=== PATIENT | female | born 1940 | race Caucasian/White ===

== ENCOUNTER 2019-09-25 10:57 | Observation (INO) | payer MEDICARE, SELFPAY ==
[2019-09-25] VITALS (15 sets, daily range): BP systolic 115–183; BP diastolic 54–80; PULSE 52–92; RESP 16–20; TEMP 36.4–36.7; O2SAT 96–100; BMI 29.3
--- NOTE | ~2019-09-25 | XR_ITS ---
EXAMINATION: XR chest 2V DATE: 09/25/2019 11:49 INDICATION: Midsternal chest pain TECHNIQUE: PA and lateral views of the chest are obtained. COMPARISON: 04/22/2019 FINDINGS: The lungs are free of acute opacities. There is no pleural effusion or pneumothorax. The ca rdiomediastinal silhouette is normal. There is exaggerated kyphosis of the thoracic spine. Mild thora cic spondylosis is noted. Cholecystectomy clips are noted in the right upper quadrant. IMPRESSION: 1. No acute cardiopulmonary abnormality. Reviewed, dictated and finalized at location A. ENT SERVICES MANAGER
--- NOTE | 2019-09-25 11:07 | ECG_ITS ---
Measurements Intervals [place] Rate: 58 P: -5 [place]: 210 QRS: -27 QRSD: 97 T: 18 QT: 419 QTc: 412 Interpretive Statements SINUS BRADYCARDIA WITH FIRST DEGREE AV BLOCK LOW QRS VOLTAGE IN PRECORDIAL LEADS ABNORMAL ECG Electronically Signed On 09-25-2019 15:59:19 DELIVERY MERCHANDISER by Seamus Cowan D.O.
[2019-09-25 11:16] LABS: Basophils Absolute Auto 0.1 K/mm3 (0.0-0.1); Basophils Percent Auto 0.8 % (0.2-1.2); Eosinophils Absolute Auto 0.1 K/mm3 (0-0.3); Hematocrit 40.1 % (37.0-47.0); Hemoglobin 12.8 g/dL (12.0-15.0); Immature Granulocyte Absolute 0.01 K/mm3 (0.00-0.031); Immature Granulocyte Percent A 0.1 % (0-0.5); Lymphocytes Percent Auto 24.1 % (18.3-44.2); Mean Corpuscular HGB Conc 31.9 g/dl (32-36); Mean Corpuscular Hemoglobin 29.5 pg (26-34); Mean Corpuscular Volume 92.4 fl (80-100); Mean Platelet Volume 10.4 fl (7.4-10.4); Monocytes Absolute Auto 0.4 K/mm3 (0.1-0.6); Monocytes Percent Auto 6.1 % (2.6-8.5); Neutrophils Absolute Auto 4.7 K/mm3 (1.3-6.7); Neutrophils Percent Auto 66.9 % (45.5-73.1); Platelet Count Result 194 k/mm3 (150-375); Red Blood Count 4.34 M/mm3 (4.2-5.4); Red Cell Distribution Width 13.8 % (11.5-14.5); White Blood Count 7.1 K/mm3 (4.5-10.0)
[2019-09-25 11:26] LABS: Partial Thromboplastin Time 27.1 SECONDS (22.3-36.8); Prothrombin Time 13.2 Seconds (11.1-14.7)
[2019-09-25 11:30] LABS: Blood Urea Nitrogen 9 mg/dL (7-17); Calcium 9.5 mg/dL (8.4-10.2); Carbon Dioxide 27 mmol/L (22-30); Chloride 100 mmol/L (98-107); Estimated Glomerular Filt Rate 43; Glucose 116 mg/dL (65-105); Sodium 137 mmol/L (137-145)
[2019-09-25 11:42] LABS: Troponin I < 0.012 ng/mL (0.000-0.034)
[2019-09-25] MEDS: ASPIRIN 81 MG CHEWABLE TABLET 324 MG PO (12:26)
--- NOTE | 2019-09-25 12:29 | ED.CHESTPAIN ---
HPI - Chest Pain General Chief Complaint: Chest Pain Stated Complaint: cp Time Seen by Provider: 09/25/19 12:13 Source: patient Mode of arrival: ambulatory Limitations: no limitations History of Present Illness HPI narrative: The pt is an 79 y/o female who presents to the ED with c/o CP that began this morning. The pt states that the CP began upon waking up. The pain started in her rt arm and chest and lasted for about 15 minutes. She notes that she did not get up from bed until the pain resided because she was afraid that it would make her pain worse. She has never had this pain before. In the ED bed, her sx is now resolved and the pt denies CP, fever, chills, cough, or N/V/D. She has a PMHx of GERD and HLD, but denies a history of OK, TIA, or CVA. The pt does not smoke or drink and lives with her daughter and her . The pt's spouse 2 years ago. Her PCP is Dr. Liliana Lou who she last saw 1 month ago for a regular check-up. MD complaint: chest pain Onset (ago): hour(s) (this morning) Timing of current episode: now resolved Onset: awoke with symptoms Associated symptoms: other (none) Related Data Home Medications Medication Instructions Recorded Confirmed alprazolam 1 mg tablet 1 mg PO TID PRN 07/03/19 aspirin 81 mg tablet,delayed 81 mg PO DAILY 07/03/19 release lovastatin 40 mg tablet 40 mg PO QPM 07/03/19 omeprazole 20 mg capsule,delayed 20 mg PO DAILY 07/03/19 release Allergies Allergy/AdvReac Type Severity Reaction Status Date / Time Quinolones Allergy Mild Unknown Verified 08/27/19 10:35 cefprozil Allergy Unknown Unknown Verified 08/27/19 10:35 cefuroxime Allergy Unknown Unknown Verified 08/27/19 10:35 Cephalosporins Allergy Unknown Unknown Verified 08/27/19 10:35 erythromycin base Allergy Unknown Stomach Verified 08/27/19 10:35 cramps gatifloxacin Allergy Unknown Unknown Verified 08/27/19 10:35 metronidazole Allergy Unknown Unknown Verified 08/27/19 10:35 Penicillins Allergy Unknown Unknown Verified 08/27/19 10:35 Review of Systems Review of Systems: All systems reviewed & are unremarkable except as noted in HPI and below Constitutional: Constitutional: Denies chills and Denies fever(s) Cardiovascular: Cardiovascular: Denies chest pain Respiratory: Respiratory: Denies cough Gastrointestinal: Gastrointestinal: Denies diarrhea, Denies nausea and Denies vomiting PMFSH Past Medical History Medical History A-fib Angina at rest Anxiety Arthritis CAD (coronary artery disease) Cataracts, bilateral Chronic midline low back pain with sciatica Depression Diverticulitis Fall GERD (gastroesophageal reflux disease) History of angina HLD (hyperlipidemia) HTN (hypertension) Nausea Sleep apnea UTI (urinary tract infection) Surgical History Surgical History H/O tubal ligation H/O: hysterectomy History of appendectomy History of cataract surgery History of cholecystectomy Family History Family History Father Family history of alcoholism Acute myocardial infarction Mother Family history of alcoholism Social History Social History Smoking status: Never smoker Second hand tobacco smoke exposure: No Alcohol intake: never Substance use: never Substance use type: does not use Gender identity (if verbalized by the patient): Female Exam Narrative: Exam Narrative: General appearance: Well-developed, well-nourished Skin: Normal color Head: Normocephalic, nontraumatic Eyes: Clear conjunctiva ENT: Oropharynx normal, ears normal, nose normal Neck: Supple, nontender Chest and respiratory: Airway patent, no respiratory distress, no accessory muscle use Heart: Regular rate/rhythm Abdomen: Soft, nontender, no organomegaly, quiet bowel sounds Vascular: Normal pe
[2019-09-25] MEDS: ENOXAPARIN 80 MG/0.8 ML SYRINGE 70 MG SUB-Q (14:03)
[2019-09-25] MEDS: NITROGLYCERIN OINTMENT 1 INCH DOSE TRANSDERM (14:05)
[2019-09-25 14:33] LABS: Troponin I < 0.012 ng/mL (0.000-0.034)
[2019-09-25] MEDS: ALPRAZOLAM 0.25 MG TABLET 0.5 MG PO (14:53)
--- NOTE | 2019-09-25 16:22 | ADMGEN ---
This patient, Chiara Faith, was admitted to IMU Room 214-01. Patient/family oriented to hospital policies and general routines including ID bracelet, bed and alarms, visiting hours, pain management, procedures, bathroom and other care routines, personal items, smoking policy, room service/diet, and visiting hours. Valuables list has been completed. Information on how to activate the Rapid Response Team has been discussed. Patient/Family are encouraged to report perceived risks to care and to ask questions if they do not understand what they are told or what they should do.
[2019-09-25 17:37] LABS: Troponin I < 0.012 ng/mL (0.000-0.034)
--- NOTE | 2019-09-25 18:00 | PM.IMHP ---
H&P: HPI History of Present Illness Chief complaint: Chest pain Narrative: Chiara Faith is a 79 year old female with paroxysmal atrial fibrillation, hypertension, hyperlipidemia, GERD, and anxiety who presented to the emergency department earlier this afternoon for evaluation of chest pain. Not long after waking up this morning, but still while lying in bed, she developed midsternal chest pain that she describes as an ache. At that time, she was laying on her right side, and also notes that her right arm seemed to have been asleep as well. She rolled onto her back, thinking that maybe would help, however the midsternal aching persisted for upwards of 15 minutes. She had no associated symptoms with the aching and specifically denies sweats, nausea, and vomiting. She was not experiencing indigestion or heartburn. She then told her daughter, who insisted that she come to the emergency department. She has not had a recurrence and feels just fine at this time. She is a patient of Dr. Freddie Velasco, and follows with him for her atrial fibrillation. She has an upcoming appointment with him in October 2019. Review of Systems Review of Systems: Narrative: Twelve systems were reviewed with pertinent positives and negatives as per HPI. No fever, chills, or sweats. No recent cold or flu symptoms. No history of coronary artery disease. No GERD or acid reflux pain. She does admit to having stress at home, with some discord with her son-in-law. She admits to being a very anxious person, and is dependent on benzodiazepines. She frequently suffers from nausea, which has been attributed to her anxiety. She was seen by Dr. Sosa, prescribe Zofran as needed. No endoscopy performed, trying to limit invasive procedures due to her age. She does not believe that her discomfort today is related to anxiety in any way. Except as documented, all other systems were reviewed and are negative. [facility] Past Medical History Medical History (Updated 09/25/19 @ 20:59 by Alba Jamil PA-C) Anxiety Aortic valve regurgitation Moderate by echocardiogram in October 2018. Followed by Dr. Velasco. Arthritis Benzodiazepine dependence Bronchiectasis Prior imaging demonstrated bronchiectasis in bilateral lower lobes with chronic scarring. Chronic kidney disease, stage 3 Baseline creatinine between 1.20 and 1.40. Chronic midline low back pain with sciatica Dementia Reported by daughter, however the patient disputes this. Depression Diverticulitis GERD (gastroesophageal reflux disease) Hyperlipidemia Hypertension Obstructive sleep apnea Paroxysmal atrial fibrillation She has declined anticoagulation and antiarrhythmics previously, and is on pantoprazole daily. She is followed by Dr. Velasco. Surgical History Surgical History (Updated 09/25/19 @ 15:18 by Alba Jamil PA-C) History of appendectomy History of cardiac catheterization No known intervention. History of cataract surgery History of cholecystectomy Status post appendectomy Status post cataract extraction Status post hysterectomy Status post tubal ligation Family History Family History (Updated 09/25/19 @ 16:38 by Marilee Hester RN) Father Acute myocardial infarction Family history of alcoholism Mother Family history of alcoholism Sibling Acute myocardial infarction Sibling Brain aneurysm Social History Social History (Updated 09/25/19 @ 15:19 by Alba Jamil PA-C) Social History: The patient has been for 2+ years. She lives in [place] with her daughter, son-in-law, and grandchildren. She has 3 daughters, 1 from an ID at age 30. She is a lifelong nonsmoker and denies alcohol and drug use. Smoking status: Never smoker Second hand tobacco smoke exposure: Yes Alcohol intake: never Substance use: never Substance use type: does not use Spiritual care concerns: No Agree to blood products: Yes Meds
[2019-09-25] MEDS: ALPRAZOLAM 0.5 MG TABLET 1 MG PO (21:09)
[2019-09-26] VITALS: PULSE 64; RESP 20; O2SAT 96
[2019-09-26 01:54] VITALS: PULSE 58
[2019-09-26 04:00] VITALS: BP 146/72; PULSE 56; PULSE 58; RESP 18; RESP 20; TEMP 36.8; O2SAT 96; O2SAT 97
[2019-09-26 06:00] VITALS: PULSE 56
[2019-09-26 08:00] VITALS: BP 150/68; PULSE 73; PULSE 78; RESP 18; TEMP 36.8; O2SAT 98
[2019-09-26] MEDS: ALPRAZOLAM 0.5 MG TABLET 1 MG PO (08:12)
[2019-09-26 08:13] VITALS: PULSE 67
[2019-09-26] MEDS: ASPIRIN 81 MG ENTERIC TABLET PO (08:13)
[2019-09-26] MEDS: PANTOPRAZOLE 40 MG TABLET PO (08:13)
[2019-09-26] MEDS: CITALOPRAM HYDROBROMIDE 20 MG TABLET 10 MG PO (08:13)
[2019-09-26] MEDS: LOSARTAN POTASSIUM 100 MG TABLET PO (08:13)
[2019-09-26] MEDS: METOPROLOL SUCCINATE EXT REL 25 MG TABCR PO (08:13)
[2019-09-26] MEDS: FUROSEMIDE 20 MG TABLET PO (08:13)
[2019-09-26] MEDS: SERTRALINE HCL 25 MG TABLET PO (08:14)
--- NOTE | 2019-09-26 18:36 | PM.DS ---
DS: Diagnosis Admitting Diagnosis Admitting Diagnosis: Chest pain, unspecified Discharge Diagnosis (1) Chest pain: Qualifiers: Chest pain type: unspecified Qualified Code(s): R07.9 - Chest pain, unspecified Code(s): R07.9 - Chest pain, unspecified Status: Acute Assessment and Plan: Atypical presentation for cardiac pain. She does have risk factors for such, however and was admitted for rule out.. troponins were negative to rule out acute coronary syndrome. And EKG sinus rhythm with no ischemic changes. Will follow-up with Dr. Velasco. 11/12/19 (2) Anxiety: Code(s): F41.9 - Anxiety disorder, unspecified Status: Acute Assessment and Plan: Long history of anxiety, dependent on benzodiazepines. Could be playing a role in her chest pain. She frequently has nausea due to anxiety, and was followed by Dr. Sosa. No endoscopy done at that time, as the patient wished to limit invasive procedures. (3) Hypertension: Code(s): I10 - Essential (primary) hypertension Status: Acute Assessment and Plan: Blood pressures were reviewed and were as high as 183/73 in the emergency department. Since that time, they were well controlled in the 120s to 150 systolic. Likely elevated due to anxiety. Continue antihypertensives and monitor. (4) Paroxysmal atrial fibrillation: Code(s): I48.0 - Paroxysmal atrial fibrillation Status: Acute Assessment and Plan: Currently in a normal sinus rhythm. She has previously refused anticoagulation. Continue metoprolol. (5) Chronic kidney disease, stage 3: Code(s): N18.3 - Chronic kidney disease, stage 3 (moderate) Status: Acute Assessment and Plan: Creatinine is stable on review of previous labs. At 1.2 with estimated GFR of 43 DS: Summary Hospital Course Hospital Course: 79-year-old hypertensive white female with history of paroxysmal AFib and hyperlipidemia admitted with atypical chest pain. She had no further discomfort after admission. Serial troponins were negative and EKG no ischemic change. She has scheduled appointment with Dr. Velasco 11/12/2019. Encouraged her to follow-up with him at that time decide about any possible noninvasive ischemic workup or repeating her echocardiogram Time Spent with Patient Time attestation: Total time spent providing and/or coordinating discharge services: 35 Exam Narrative: Exam Narrative: Condition on discharge: Blood pressure 150/68 pulse is 78 sat 95% on room air Lungs clear CV regular rate rhythm faint systolic murmur and diastolic along left sternal border Abdomen is soft nontender Extremities without edema Neuro alert pleasant cooperative no focal deficits Discharge Plan Discharge Attending physician on discharge: Ryder Dumont Discharging Clinician: Ryder Dumont Patient Disposition: Home, Self-Care Activity: as tolerated Diet: low sodium and low cholesterol Patient Instructions: Generalized Anxiety Disorder (GEN), Anxiety (GEN) Stand Alone Forms: General Discharge Information Follow-up/Referrals: Freddie Velasco MD [Physician] - Keep Reg. Scheduled Appt. Discharge Medications: Continued aspirin [Adult Aspirin Regimen] 81 mg tablet,delayed release (DR/EC) 81 mg PO DAILY RF: 0 omeprazole 20 mg capsule,delayed release(DR/EC) 20 mg PO DAILY RF: 0 alprazolam 1 mg tablet 1 mg PO 0900,1400,2100 RF: 0 lovastatin 40 mg tablet 40 mg PO QPM RF: 0 metoprolol succinate 25 mg tablet extended release 24 hr 25 mg PO DAILY Qty: 90 RF: 3 ondansetron HCl [Zofran] 4 mg tablet 4 mg PO BID PRN (Reason: nausea and vomiting) Qty: 60 RF: 3 citalopram 20 mg tablet 10 mg PO DAILY RF: 0 sertraline 25 mg tablet 25 mg PO DAILY RF: 0 furosemide 20 mg tablet 20 mg PO QAM Qty: 90 RF: 1 losartan 100 mg tablet 100 mg PO D
== END 2019-09-26 10:26 | disposition home or self-care (01) ==
LOC: ANHED 14:36 → ANHIMU 09-26 08:52
PROVIDERS: Family Medicine; Admitting Provider Hospitalist; Emergency Provider Emergency Medicine; PCP Family Medicine; Visit Provider Internal Medicine
DX: R07.89 Other chest pain (principal); F41.9 Anxiety disorder, unspecified; I12.9 Hypertensive chronic kidney disease with stage 1 through stage 4 chronic kidney disease, or unspecified chronic kidney disease; N18.3 Chronic kidney disease, stage 3 (moderate); I48.0 Paroxysmal atrial fibrillation; I25.10 Atherosclerotic heart disease of native coronary artery without angina pectoris; I35.1 Nonrheumatic aortic (valve) insufficiency; K21.9 Gastro-esophageal reflux disease without esophagitis; E78.5 Hyperlipidemia, unspecified; G47.33 Obstructive sleep apnea (adult) (pediatric); Z79.82 Long term (current) use of aspirin; Z79.899 Other long term (current) drug therapy
CPT/HCPCS: 36415; 71046; 80048; 84484; 85025; 85610; 85730; 93005; 96372; 99285; A9270; G0378; J1650

== ENCOUNTER 2019-10-26 12:36 | Emergency (ER) | payer MEDICARE, SELFPAY ==
--- NOTE | ~2019-10-26 | XR_ITS ---
EXAMINATION: XR chest 2V DATE: 10/26/2019 13:36 INDICATION: Cough. TECHNIQUE: Frontal and lateral views of the chest were obtained. COMPARISON: Chest 2 views 09/25/2019, chest CT 04/19/2019 FINDINGS: The chest demonstrates clear lungs without pneumonia, pleural effusion, or pneumothorax. Th e heart size is normal. Surgical clips in the right upper quadrant are likely from cholecystectomy. IMPRESSION: 1. No acute cardiopulmonary disease. Reviewed, dictated and finalized at location A. MECHANICAL ENGINEER
--- NOTE | 2019-10-26 12:59 | ECG_ITS ---
Measurements Intervals [place] Rate: 70 P: -31 [place]: 171 QRS: -22 QRSD: 89 T: 60 QT: 416 QTc: 449 Interpretive Statements SINUS RHYTHM VOLTAGE CRITERIA FOR LVH BORDERLINE ST ABNORMALITY- LATERAL LEADS BORDERLINE ECG Electronically Signed On 10-26-2019 17:47:40 [employer]PER[employer] by Seamus Cowan D.O.
[2019-10-26 13:04] VITALS: BP 150/73; PULSE 71; RESP 16; TEMP 36.9; O2SAT 98
--- NOTE | 2019-10-26 13:14 | ED.DIZZY ---
HPI - Dizziness General Chief Complaint: Dizziness Stated Complaint: sob Time Seen by Provider: 10/26/19 13:04 Source: patient and family Mode of arrival: ambulatory Limitations: no limitations History of Present Illness HPI Narrative: An 79 y/o female pt presents to the ED, with c/o sudden onset of dizziness that occurred today. Pt states that she has been sick with a productive cough x 3 weeks and saw a doctor x one week ago and was told she has phlegm built up around her heart that they prescribed her Abx for, that she has now finished. She states that today her heart suddenly felt funny and she felt that she needed to sit down . She also notes feeling dizzy and shaky when this began. Once sitting down, her Sx subsided. Pt notes that her mouth feels very dry, but denies SOB, CP, heart palpitations, N/V/D, fever, change in food or liquid intake, pressure in ears, dark stools, dysuria, or frequent/infrequent urination. Pt notes taking Robitussin Honey for her cough with little relief. MD elicited complaint: dizziness and other (shaky, weakness) Pertinent past history: other (recent illness x 3 weeks) Onset (ago): hour(s) Timing: sudden onset Description: other ( heart felt funny , weakness, dizzy, shaky) Relieving factors: remaining still (sitting down) Associated symptoms: other (productive cough, shaky, weakness) Related Data Home Medications Medication Instructions Recorded Confirmed alprazolam 1 mg tablet 1 mg PO 0900,1400,2100 07/03/19 09/25/19 aspirin 81 mg tablet,delayed 81 mg PO DAILY 07/03/19 09/25/19 release lovastatin 40 mg tablet 40 mg PO QPM 07/03/19 09/25/19 sertraline 25 mg PO DAILY 09/25/19 Allergies Allergy/AdvReac Type Severity Reaction Status Date / Time Penicillins Allergy Severe Hives Verified 09/25/19 16:37 Quinolones Allergy Mild Unknown Verified 08/27/19 10:35 cefprozil Allergy Unknown Unknown Verified 08/27/19 10:35 cefuroxime Allergy Unknown Unknown Verified 08/27/19 10:35 Cephalosporins Allergy Unknown Unknown Verified 08/27/19 10:35 erythromycin base Allergy Unknown Stomach Verified 08/27/19 10:35 cramps gatifloxacin Allergy Unknown Unknown Verified 08/27/19 10:35 metronidazole Allergy Unknown Unknown Verified 08/27/19 10:35 Review of Systems Review of Systems: All systems reviewed & are unremarkable except as noted in HPI and below Constitutional: Constitutional: Denies fever(s), Reports weakness and Reports other (shakiness) ENT: Reports dizziness, Reports dry mouth and Denies other (ear pressure) Cardiovascular: Cardiovascular: Denies chest pain, Denies palpitations and Reports other ( heart felt funny ) Respiratory: Respiratory: Reports cough, Reports excessive phlegm production and Denies dyspnea Gastrointestinal: Gastrointestinal: Denies melena, Denies diarrhea, Denies nausea, Denies vomiting and Denies other (change in food or liquid intake) Genitourinary: Genitourinary: Denies nocturia, Denies dysuria and Denies other (infrequent urination) [facility] Past Medical History Medical History Anxiety Aortic valve regurgitation Moderate by echocardiogram in October 2018. Followed by Dr. Velasco. Arthritis Benzodiazepine dependence Bronchiectasis Prior imaging demonstrated bronchiectasis in bilateral lower lobes with chronic scarring. Chronic kidney disease, stage 3 Baseline creatinine between 1.20 and 1.40. Chronic midline low back pain with sciatica Dementia Reported by daughter, however the patient disputes this. Depression Diverticulitis GERD (gastroesophageal reflux disease) Hyperlipidemia Hypertension Obstructive sleep apnea Paroxysmal atrial fibrillation She has declined anticoagulation and antiarrhythmics previously, and is on pantoprazole daily. She is followed by Dr. Velasco. Surgical History Surgical History History of appendectomy History of car
[2019-10-26 13:56] LABS: Basophils Absolute Auto 0.1 K/mm3 (0.0-0.1); Basophils Percent Auto 0.7 % (0.2-1.2); Eosinophils Absolute Auto 0.2 K/mm3 (0-0.3); Eosinophils Percent Auto 2.8 % (0-4.4); Hematocrit 38.9 % (37.0-47.0); Hemoglobin 12.4 g/dL (12.0-15.0); Immature Granulocyte Absolute 0.04 K/mm3 (0.00-0.031); Immature Granulocyte Percent A 0.5 % (0-0.5); Lymphocytes Absolute Auto 1.87 K/mm3 (0.9-3.2); Mean Corpuscular HGB Conc 31.9 g/dl (32-36); Mean Corpuscular Hemoglobin 28.8 pg (26-34); Mean Corpuscular Volume 90.5 fl (80-100); Mean Platelet Volume 10.9 fl (7.4-10.4); Monocytes Absolute Auto 0.4 K/mm3 (0.1-0.6); Monocytes Percent Auto 5.3 % (2.6-8.5); Neutrophils Absolute Auto 5.5 K/mm3 (1.3-6.7); Neutrophils Percent Auto 67.7 % (45.5-73.1); Platelet Count Result 234 k/mm3 (150-375); Red Cell Distribution Width 13.4 % (11.5-14.5); White Blood Count 8.1 K/mm3 (4.5-10.0)
[2019-10-26 14:05] LABS: Blood Urea Nitrogen 7 mg/dL (7-17); Calcium 8.9 mg/dL (8.4-10.2); Carbon Dioxide 24 mmol/L (22-30); Chloride 100 mmol/L (98-107); Estimated Glomerular Filt Rate 39; Glucose 128 mg/dL (65-105); Potassium 3.8 mmol/L (3.4-5.0); Sodium 139 mmol/L (137-145)
[2019-10-26 14:57] LABS: Add Urine Microscopic? NO; Appearance Urine Clear (Clear); Bilirubin Urine Negative (Negative); Blood Urine Negative (Negative); Color Urine Colorless (Yellow); Glucose Urine UA Negative (Negative); Ketones Urine Negative (Negative); Leukocyte Esterase Ur Negative LEU/UL (Negative); Nitrate Urine Negative (Negative); Protein Urine Negative (Negative); Specific Grav Ur 1.005 (1.001-1.035); Urobilinogen Urine Negative mg/dL (<2.0)
[2019-10-26 15:04] VITALS: BP 119/70; BP 141/75; BP 166/73; PULSE 68; PULSE 74
[2019-10-26 15:38] VITALS: BP 155/72; PULSE 74; RESP 16; O2SAT 98
== END 2019-10-26 15:40 | disposition home or self-care (01) ==
PROVIDERS: Emergency Provider Emergency Medicine; PCP Family Medicine
DX: R42 Dizziness and giddiness (principal); F41.9 Anxiety disorder, unspecified; M19.90 Unspecified osteoarthritis, unspecified site; I35.1 Nonrheumatic aortic (valve) insufficiency; I12.9 Hypertensive chronic kidney disease with stage 1 through stage 4 chronic kidney disease, or unspecified chronic kidney disease; N18.3 Chronic kidney disease, stage 3 (moderate); E78.5 Hyperlipidemia, unspecified; F32.9 Major depressive disorder, single episode, unspecified; K21.9 Gastro-esophageal reflux disease without esophagitis; G47.33 Obstructive sleep apnea (adult) (pediatric); I48.0 Paroxysmal atrial fibrillation; Z98.49 Cataract extraction status, unspecified eye
CPT/HCPCS: 36415; 71046; 80048; 81003; 85025; 87804; 93005; 99283

== ENCOUNTER 2019-12-30 15:48 | Emergency (ER) | payer MEDICARE, SELFPAY ==
--- NOTE | ~2019-12-30 | XR_ITS ---
XR toe 1st RT min 2V 12/30/2019 16:23 Indication: Right first toe pain after fall Procedure: 4 views right first toe Comparison: No prior studies for comparison. Findings: There is osteoarthritis of the first MTP joint. No acute fracture or traumatic malalignment . Lisfranc joint is intact. Osteopenia. No foreign bodies. There is a degenerative calcaneal enthesop hyte. Impression: 1: No acute fracture. Reviewed, dictated and finalized at location A. Impression: 1: No acute fracture.
[2019-12-30 15:58] VITALS: BP 180/81; PULSE 72; RESP 18; TEMP 36.7; O2SAT 99
--- NOTE | 2019-12-30 16:07 | ED.GENADULT ---
HPI - General Adult General Chief complaint: Fall Stated complaint: fell out of bed Time Seen by Provider: 12/30/19 15:54 Source: patient Mode of arrival: ambulatory Limitations: no limitations History of Present Illness HPI narrative: Patient is an 79-year-old female who presents to emergency department for evaluation of right great toe pain after slipping out of her bed and injuring the toe this morning noting moderate aching pain worse with weightbearing and activity. Patient denies other injuries or complaints presents per private vehicle lives at home with her daughter has not taken anything for pain. Related Data Allergies Allergy/AdvReac Type Severity Reaction Status Date / Time Penicillins Allergy Severe Hives Verified 12/30/19 16:02 Quinolones Allergy Mild Unknown Verified 12/30/19 16:02 cefprozil Allergy Unknown Unknown Verified 12/30/19 16:02 cefuroxime Allergy Unknown Unknown Verified 12/30/19 16:02 Cephalosporins Allergy Unknown Unknown Verified 12/30/19 16:02 erythromycin base Allergy Unknown Stomach Verified 12/30/19 16:02 cramps gatifloxacin Allergy Unknown Unknown Verified 12/30/19 16:02 metronidazole Allergy Unknown Unknown Verified 12/30/19 16:02 Review of Systems Review of Systems: All systems reviewed & are unremarkable except as noted in HPI and below PMFSH Past Medical History Medical History Anxiety Aortic valve regurgitation Moderate by echocardiogram in October 2018. Followed by Dr. Velasco. Arthritis Benzodiazepine dependence Bronchiectasis Prior imaging demonstrated bronchiectasis in bilateral lower lobes with chronic scarring. Chronic kidney disease, stage 3 Baseline creatinine between 1.20 and 1.40. Chronic midline low back pain with sciatica Dementia Reported by daughter, however the patient disputes this. Depression Diverticulitis GERD (gastroesophageal reflux disease) Hyperlipidemia Hypertension Obstructive sleep apnea Paroxysmal atrial fibrillation She has declined anticoagulation and antiarrhythmics previously, and is on pantoprazole daily. She is followed by Dr. Velasco. Surgical History Surgical History History of appendectomy History of cardiac catheterization No known intervention. History of cataract surgery History of cholecystectomy Status post appendectomy Status post cataract extraction Status post hysterectomy Status post tubal ligation Family History Family History Father Acute myocardial infarction Family history of alcoholism Mother Family history of alcoholism Sibling Acute myocardial infarction Sibling Brain aneurysm Social History Social History Social History: The patient has been for 2+ years. She lives in [place] with her daughter, son-in-law, and grandchildren. She has 3 daughters, 1 from an MS at age 28. She is a lifelong nonsmoker and denies alcohol and drug use. Smoking status: Never smoker Second hand tobacco smoke exposure: Yes Alcohol intake: never Substance use: never Substance use type: does not use Gender identity (if verbalized by the patient): Female Spiritual care concerns: No Agree to blood products: Yes Exam Narrative: Exam Narrative: GENERAL: Well-appearing, well-nourished, and in no acute distress. HEAD: Normocephalic, atraumatic. EYES: PERRLA and EOMI. ENT: Nares clear, no rhinorrhea or epistaxis. Mucous membranes moist. CHEST: Clear to auscultation. No respiratory distress. No wheezes rales or rhonchi HEART: Regular rate and rhythm. No murmur heard. Normal peripheral pulses. EXTREMITIES: Bruising tenderness of the right great toe remainder of extremities nontender no deformity SKIN: Warm, dry, no rash. Slight swelling of the right great toe NE
[2019-12-30] MEDS: ACETAMINOPHEN 325 MG TABLET 650 MG PO (16:39)
[2019-12-30 17:55] VITALS: BP 158/89; PULSE 79; RESP 19; TEMP 36.4; O2SAT 99
== END 2019-12-30 17:57 | disposition home or self-care (01) ==
PROVIDERS: Emergency Provider Emergency Medicine; PCP Family Medicine
DX: M79.671 Pain in right foot (principal); Z79.82 Long term (current) use of aspirin; M19.90 Unspecified osteoarthritis, unspecified site; I35.1 Nonrheumatic aortic (valve) insufficiency; I12.9 Hypertensive chronic kidney disease with stage 1 through stage 4 chronic kidney disease, or unspecified chronic kidney disease; N18.3 Chronic kidney disease, stage 3 (moderate); F41.9 Anxiety disorder, unspecified; F32.9 Major depressive disorder, single episode, unspecified; K21.9 Gastro-esophageal reflux disease without esophagitis; E78.5 Hyperlipidemia, unspecified; G47.33 Obstructive sleep apnea (adult) (pediatric); I48.0 Paroxysmal atrial fibrillation; Z98.49 Cataract extraction status, unspecified eye; W06.XXXA Fall from bed, initial encounter
CPT/HCPCS: 73660; 99283; A9270

== ENCOUNTER 2020-02-23 14:58 | Emergency (ER) | payer MEDICARE, SELFPAY ==
--- NOTE | ~2020-02-23 | XR_ITS ---
EXAMINATION: XR chest 2V DATE: 02/23/2020 15:46 INDICATION: Shortness of breath, tachycardia TECHNIQUE: PA and lateral views of the chest are obtained. COMPARISON: 10/26/2019, 04/19/2019, 02/03/2019, 09/10/2013 FINDINGS: The lungs are free of acute opacities. Area of chronic bandlike scarring or atelectasis is seen in the right upper lobe. There is no pleural effusion or pneumothorax. The cardiomediastinal qamar houette is normal. There is moderate thoracic spondylosis. Cholecystectomy clips are noted in the rig ht upper quadrant. IMPRESSION: 1. No acute cardiopulmonary abnormality. Reviewed, dictated and finalized at location A.
[2020-02-23 15:05] VITALS: BP 150/69; PULSE 87; RESP 18; TEMP 37; O2SAT 100
--- NOTE | 2020-02-23 15:19 | ED.GENADULT ---
HPI - General Adult General Chief complaint: Shortness of Breath/Dyspnea Stated complaint: SOB x 1day Time Seen by Provider: 02/23/20 15:14 Source: patient Mode of arrival: ambulatory Limitations: no limitations History of Present Illness HPI narrative: Patient is an 80-year-old female who presents for evaluation of heart palpitations and shortness of breath. Patient states that she was out in the heat yesterday noticed she was having palpitations. She states that these were intermittent yesterday and slightly this morning, but none over the past 4 hours. Patient denies any fever, cough. No current shortness of breath. Patient states she noticed the palpitations when she was out running errands with her daughter yesterday and this morning. Daughter states they had gone to [employer] for some shopping, and patient had reported palpitations. Patient states that heat seems to exacerbate the symptoms. No rhinorrhea, sore throat or otalgia. No leg swelling or leg pain. No current chest pain. Of note, the patient has been very anxious lately. Per the daughter, her primary care provider decreased her Xanax use 2.5 mg 3 times daily, but patient has been on 1 mg 3 times a day for the past 40+ years, and so they called in for another prescription, and patient took 1.5 mg this afternoon approximately 2:00 before arrival. Related Data Allergies Allergy/AdvReac Type Severity Reaction Status Date / Time Penicillins Allergy Severe Hives Verified 02/23/20 16:11 Quinolones Allergy Mild Unknown Verified 02/23/20 16:11 cefprozil Allergy Unknown Unknown Verified 02/23/20 16:11 cefuroxime Allergy Unknown Unknown Verified 02/23/20 16:11 Cephalosporins Allergy Unknown Unknown Verified 02/23/20 16:11 erythromycin base Allergy Unknown Stomach Verified 02/23/20 16:11 cramps gatifloxacin Allergy Unknown Unknown Verified 02/23/20 16:11 metronidazole Allergy Unknown Unknown Verified 02/23/20 16:11 Review of Systems Review of Systems: Narrative: CONSTITUTIONAL: Denies fever CARDIOVASCULAR: Denies chest pain, reports intermittent palpitations, none currently RESPIRATORY: Denies cough, no current shortness of breath GASTROINTESTINAL: Denies abdominal pain SKIN: Denies rash MUSCULOSKELETAL: Denies back pain NEUROLOGIC: Denies headache PMFSH Past Medical History Medical History Anxiety Aortic valve regurgitation Moderate by echocardiogram in October 2018. Followed by Dr. Velasco. Arthritis Benzodiazepine dependence Bronchiectasis Prior imaging demonstrated bronchiectasis in bilateral lower lobes with chronic scarring. Chronic kidney disease, stage 3 Baseline creatinine between 1.20 and 1.40. Chronic midline low back pain with sciatica Dementia Reported by daughter, however the patient disputes this. Depression Diverticulitis GERD (gastroesophageal reflux disease) Hyperlipidemia Hypertension Obstructive sleep apnea Paroxysmal atrial fibrillation She has declined anticoagulation and antiarrhythmics previously, and is on pantoprazole daily. She is followed by Dr. Velasco. Surgical History Surgical History History of appendectomy History of cardiac catheterization No known intervention. History of cataract surgery History of cholecystectomy Status post appendectomy Status post cataract extraction Status post hysterectomy Status post tubal ligation Family History Family History Father Acute myocardial infarction Family history of alcoholism Mother Family history of alcoholism Sibling Acute myocardial infarction Sibling Brain aneurysm Social History Social History Social History: The patient has been for 2+ years. She lives in [place] with her daughter, son-in-law, and grandchildren
--- NOTE | 2020-02-23 15:22 | ECG_ITS ---
Measurements Intervals [place] Rate: 81 P: -70 [place]: 155 QRS: -20 QRSD: 86 T: 64 QT: 367 QTc: 426 Interpretive Statements SINUS RHYTHM LOW QRS VOLTAGE IN PRECORDIAL LEADS VOLTAGE CRITERIA FOR LVH BORDERLINE ST ABNORMALITY- HIGH LATERAL LEADS BORDERLINE ECG Electronically Signed On 02-23-2020 17:14:36 CDT by Seamus Cowan D.O.
[2020-02-23 15:47] LABS: Basophils Absolute Auto 0.1 K/mm3 (0.0-0.1); Basophils Percent Auto 0.8 % (0.2-1.2); Eosinophils Absolute Auto 0.2 K/mm3 (0-0.3); Eosinophils Percent Auto 2.5 % (0-4.4); Hematocrit 41.8 % (37.0-47.0); Hemoglobin 13.6 g/dL (12.0-15.0); Immature Granulocyte Absolute 0.02 K/mm3 (0.00-0.031); Immature Granulocyte Percent A 0.2 % (0-0.5); Lymphocytes Absolute Auto 2.59 K/mm3 (0.9-3.2); Lymphocytes Percent Auto 30.7 % (18.3-44.2); Mean Corpuscular HGB Conc 32.5 g/dl (32-36); Mean Corpuscular Hemoglobin 29.2 pg (26-34); Mean Corpuscular Volume 89.7 fl (80-100); Mean Platelet Volume 10.7 fl (7.4-10.4); Monocytes Absolute Auto 0.6 K/mm3 (0.1-0.6); Neutrophils Percent Auto 58.8 % (45.5-73.1); Platelet Count Result 255 k/mm3 (150-375); Red Blood Count 4.66 M/mm3 (4.2-5.4); Red Cell Distribution Width 14.1 % (11.5-14.5); White Blood Count 8.5 K/mm3 (4.5-10.0)
[2020-02-23 16:00] VITALS: BP 120/65; PULSE 81; RESP 16; O2SAT 98
[2020-02-23 16:06] LABS: Blood Urea Nitrogen 13 mg/dL (7-17); Calcium 9.3 mg/dL (8.4-10.2); Carbon Dioxide 25 mmol/L (22-30); Chloride 101 mmol/L (98-107); Estimated CRCL calculation 28 ml/min; Estimated Glomerular Filt Rate 43; Glucose 106 mg/dL (65-105); Potassium 3.9 mmol/L (3.4-5.0); Sodium 137 mmol/L (137-145)
[2020-02-23 16:17] LABS: Troponin I < 0.012 ng/mL (0.000-0.034)
[2020-02-23 17:20] VITALS: BP 132/66; PULSE 80; RESP 16; O2SAT 100
== END 2020-02-23 17:20 | disposition home or self-care (01) ==
PROVIDERS: Emergency Provider Emergency Medicine; PCP Family Medicine
DX: R00.2 Palpitations (principal); I35.1 Nonrheumatic aortic (valve) insufficiency; M19.90 Unspecified osteoarthritis, unspecified site; I12.9 Hypertensive chronic kidney disease with stage 1 through stage 4 chronic kidney disease, or unspecified chronic kidney disease; N18.3 Chronic kidney disease, stage 3 (moderate); F41.9 Anxiety disorder, unspecified; F32.9 Major depressive disorder, single episode, unspecified; E78.5 Hyperlipidemia, unspecified; G47.33 Obstructive sleep apnea (adult) (pediatric); I48.0 Paroxysmal atrial fibrillation; Z79.82 Long term (current) use of aspirin
CPT/HCPCS: 36415; 71046; 80048; 84484; 85025; 93005; 99284

== ENCOUNTER 2020-03-15 16:06 | Emergency (ER) | payer MEDICARE, SELFPAY ==
--- NOTE | 2020-03-15 17:05 | PC.NURSE ---
Pt ambulated to front edger from waiting room stating that she is leaving and going to urgent care. Pt left with family.
== END 2020-03-15 17:05 | disposition left against medical advice (07) ==
PROVIDERS: PCP Family Medicine
DX: Z53.21 Procedure and treatment not carried out due to patient leaving prior to being seen by health care provider (principal)
CPT/HCPCS: 99199

== ENCOUNTER 2020-04-21 09:56 | Emergency (ER) | payer MEDICARE, SELFPAY ==
--- NOTE | ~2020-04-21 | CT_ITS ---
EXAMINATION: CT abdomen pelvis w con DATE: 04/21/2020 11:38 INDICATION: Abdominal pain. Nausea, vomiting, and diarrhea. TECHNIQUE: Computed tomography (CT) of the abdomen and pelvis was performed with 100 mL Omnipaque 350 intravenous contrast. Automated exposure control and iterative reconstruction technique were employe d. The dose-length product was 412.87 mGy-cm. COMPARISON: CT abdomen and pelvis 05/15/2019 FINDINGS: The visualized portions of the lung bases demonstrate mild atelectasis. There is mild bronc hiectasis bilaterally. A calcified right lung nodule is consistent with old granulomatous disease. No pleural effusion. The heart size is normal. There are coronary artery calcifications. No pericardial effusion. The liver is normal. Calcifications in the spleen are consistent with old granulomatous di sease. There are changes of cholecystectomy. The pancreas, adrenal glands, and kidneys are normal. Th ere is diverticulosis of the colon without evidence of diverticulitis. The appendix is not visualized . There are 2 supraumbilical ventral hernias containing fat. There are no pathologically enlarged lym ph nodes. There is a small volume of ascites. There is moderate lumbar spondylosis and severe thoraci c spondylosis. IMPRESSION: 1. Two supraumbilical ventral hernias containing fat. 2. Small volume of ascites. Reviewed, dictated and finalized at location B.
[2020-04-21 10:05] VITALS: BP 136/77; PULSE 71; RESP 18; TEMP 37; O2SAT 98
[2020-04-21 11:00] LABS: Basophils Percent Auto 0.2 % (0.2-1.2); Eosinophils Absolute Auto 0.2 K/mm3 (0-0.3); Eosinophils Percent Auto 2.1 % (0-4.4); Hemoglobin 12.8 g/dL (12.0-15.0); Immature Granulocyte Absolute 0.01 K/mm3 (0.00-0.031); Immature Granulocyte Percent A 0.1 % (0-0.5); Lymphocytes Absolute Auto 1.79 K/mm3 (0.9-3.2); Lymphocytes Percent Auto 22.3 % (18.3-44.2); Mean Corpuscular HGB Conc 32.8 g/dl (32-36); Mean Corpuscular Hemoglobin 28.8 pg (26-34); Mean Corpuscular Volume 87.6 fl (80-100); Monocytes Absolute Auto 0.6 K/mm3 (0.1-0.6); Neutrophils Absolute Auto 5.5 K/mm3 (1.3-6.7); Neutrophils Percent Auto 68.3 % (45.5-73.1); Platelet Count Result 207 k/mm3 (150-375); Red Blood Count 4.45 M/mm3 (4.2-5.4)
[2020-04-21] MEDS: ONDANSETRON INJ 4 MG/2 ML VIAL IV PUSH (11:10)
[2020-04-21 11:13] LABS: Alanine Aminotransferase 14 U/L (4-35); Albumin Level 3.9 g/dL (3.5-5.1); Alkaline Phosphatase 86 U/L (38-126); Anion Gap 7 mmol/L (8-16); Aspartate Amino Transferase 25 U/L (14-36); Bilirubin,Total 0.9 mg/dL (0.2-1.3); Blood Urea Nitrogen 10 mg/dL (7-17); Carbon Dioxide 25 mmol/L (22-30); Chloride 103 mmol/L (98-107); Estimated CRCL calculation 36 ml/min; Estimated Glomerular Filt Rate 53; Glucose 112 mg/dL (65-105); Lipase 35 U/L (23-300); Potassium 4.4 mmol/L (3.4-5.0); Sodium 135 mmol/L (137-145)
--- NOTE | 2020-04-21 11:18 | PC.NURSE ---
report to brenda mina at this time, she has assumed pt care.
--- NOTE | 2020-04-21 11:26 | ED.NAVMDI ---
HPI - Nausea/Vomiting/Diarrhea General Chief complaint: Nausea/Vomiting/Diarrhea Stated complaint: diarrhea, abd cramps, n/v Time Seen by Provider: 04/21/20 10:11 Source: patient Mode of arrival: ambulatory Limitations: no limitations History of Present Illness HPI Narrative: Patient presents with chief complaint of diffuse abdominal pain after eating spaghetti last night. Patient states that she occasionally has abdominal discomfort and was told that she has a bad colon but she does not know what it means. Patient denies recent colonoscopy but states in the past she has had CT imaging of her colon which is when they tell her it was bad. Patient reports nausea with episode of vomiting and multiple episodes of loose stool. Patient denies exception of foul-smelling loose stool. Patient denies being on any medications for her abdominal discomfort. Patient denies any fever, chills, chest pain, shortness of breath or urinary symptoms. Patient denies known history of diverticulitis or bowel obstruction. Related Data Allergies Allergy/AdvReac Type Severity Reaction Status Date / Time Penicillins Allergy Severe Hives Verified 04/21/20 10:10 Quinolones Allergy Mild Unknown Verified 04/21/20 10:10 cefprozil Allergy Unknown Unknown Verified 04/21/20 10:10 cefuroxime Allergy Unknown Unknown Verified 04/21/20 10:10 Cephalosporins Allergy Unknown Unknown Verified 04/21/20 10:10 erythromycin base Allergy Unknown Stomach Verified 04/21/20 10:10 cramps gatifloxacin Allergy Unknown Unknown Verified 04/21/20 10:10 metronidazole Allergy Unknown Unknown Verified 04/21/20 10:10 Review of Systems Review of Systems: Narrative: CONSTITUTIONAL: Denies fever, chills, or sweats. EYES: Denies visual changes, redness, or discharge. ENT: Denies rhinorrhea, congestion, sore throat, or otalgia. CARDIOVASCULAR: Denies chest pain, palpitations, or edema. RESPIRATORY: Denies cough or dyspnea. GASTROINTESTINAL: Reports abdominal pain, nausea, vomiting, or diarrhea. GENITOURINARY: Denies dysuria or hematuria. SKIN: Denies rash or itching. MUSCULOSKELETAL: Denies back pain, joint pain, or myalgia. NEUROLOGIC: Denies headache, numbness, dizziness, or weakness. PSYCHIATRIC: Denies anxiety or depression. [facility] Social History Social History Social History: The patient has been for 2+ years. She lives in [place] with her daughter, son-in-law, and grandchildren. She has 3 daughters, 1 from an [place] at age 28. She is a lifelong nonsmoker and denies alcohol and drug use. Smoking status: Never smoker Second hand tobacco smoke exposure: Yes Alcohol intake: never Substance use: never Substance use type: does not use Gender identity (if verbalized by the patient): Female Spiritual care concerns: No Agree to blood products: Yes Exam Narrative: Exam Narrative: GENERAL: Well-appearing, well-nourished, and in no acute distress. HEAD: Normocephalic, atraumatic. EYES: PERRLA and EOMI. ENT: Nares clear, no rhinorrhea or epistaxis. Mucous membranes moist. Oropharynx without tonsillar hypertrophy exudate or other lesions. Bilateral TMs pearly nichols nonbulging NECK: Supple. No adenopathy or masses. CHEST: Clear to auscultation. No respiratory distress. No wheezes rales or rhonchi HEART: Regular rate and rhythm. ABDOMEN: Soft, diffuse abdominal tenderness around umbilicus, nondistended, normal active bowel sounds. EXTREMITIES: Normal range of motion. No edema. SKIN: Warm, dry, no rash. NEURO: No focal deficits. Alert and oriented x3. PSYCH: Normal mood and affect. Course Vital Signs Vital signs: Vital Signs Temperature 98.6 F 04/21/20 10:05 Pulse Rate 71 04/21/20 10:05 Respiratory Rate 18 04/21/20 10:05 Blood Pressure 136/77 04/21/20 10:05 Pulse Oximetry 98 04/21/20 10:05 Temperature 98.6 F 04/21/20 10:05 Pulse Rate 66 04/21/20 13:04 Respi
[2020-04-21 11:27] LABS: Add Urine Microscopic? YES; Appearance Urine Clear (Clear); Bilirubin Urine Negative (Negative); Blood Urine 1+ (Negative); Color Urine Yellow (Yellow); Glucose Urine UA Negative (Negative); Ketones Urine Negative (Negative); Leukocyte Esterase Ur Trace LEU/UL (Negative); Mucus Urine Rare /lpf; Nitrate Urine Negative (Negative); Protein Urine Negative (Negative); RBC Urine 0-2 /hpf (0-2); Specific Grav Ur 1.011 (1.001-1.035); Urobilinogen Urine Negative mg/dL (<2.0)
[2020-04-21] MEDS: PANTOPRAZOLE SODIUM IV 40 MG VIAL IV PUSH (12:19)
[2020-04-21 12:20] VITALS: BP 141/62; PULSE 67; RESP 20; O2SAT 96
[2020-04-21 13:04] VITALS: BP 137/68; PULSE 66; RESP 20; O2SAT 96
== END 2020-04-21 13:07 | disposition home or self-care (01) ==
PROVIDERS: Physician Assistant; Emergency Provider Emergency Medicine; PCP Family Medicine
DX: K52.9 Noninfective gastroenteritis and colitis, unspecified (principal)
CPT/HCPCS: 36415; 74177; 80053; 81001; 83690; 85025; 87086; 96374; 96375; 99284; C9113; J2405; Q9967

== ENCOUNTER 2020-04-27 09:34 | Emergency (ER) | payer MEDICARE, SELFPAY ==
--- NOTE | ~2020-04-27 | CT_ITS ---
EXAMINATION: CT abdomen pelvis wo con DATE: 04/27/2020 11:19 INDICATION: Nausea. TECHNIQUE: Computed tomography (CT) of the abdomen and pelvis was performed without intravenous contr ast. Automated exposure control and iterative reconstruction technique were employed. The dose-length product was 403.24 mGy-cm. COMPARISON: CT abdomen and pelvis 04/21/2020 FINDINGS: The visualized portions of the lung bases demonstrate mild atelectasis. A calcified right l rosalia nodule is consistent with old granulomatous disease. No pleural effusion. The heart size is yomi l. There are coronary artery calcifications. No pericardial effusion. Calcifications in the liver and spleen are consistent with old granulomatous disease. There are changes of cholecystectomy. The panc reas, adrenal glands, and kidneys are normal. There is no urolithiasis. There is diverticulosis of th e colon without evidence of diverticulitis. There are no dilated loops of bowel. The appendix is not visualized and likely absent. There are no pathologically enlarged lymph nodes. There is no free intr aperitoneal fluid. There are 2 supraumbilical ventral hernias containing fat. There is lumbar levocur vature and moderate spondylosis. There is severe thoracic spondylosis. IMPRESSION: 1. Two supraumbilical ventral hernias containing fat. Reviewed, dictated and finalized at location A.
[2020-04-27 09:38] VITALS: BP 165/77; PULSE 63; RESP 20; TEMP 36.8; O2SAT 98
[2020-04-27 09:55] LABS: Basophils Absolute Auto 0.1 K/mm3 (0.0-0.1); Basophils Percent Auto 0.9 % (0.2-1.2); Eosinophils Absolute Auto 0.2 K/mm3 (0-0.3); Eosinophils Percent Auto 3.1 % (0-4.4); Hemoglobin 13.2 g/dL (12.0-15.0); Immature Granulocyte Absolute 0.01 K/mm3 (0.00-0.031); Immature Granulocyte Percent A 0.2 % (0-0.5); Lymphocytes Absolute Auto 2.09 K/mm3 (0.9-3.2); Lymphocytes Percent Auto 32.6 % (18.3-44.2); Mean Corpuscular Hemoglobin 29.3 pg (26-34); Mean Corpuscular Volume 88.7 fl (80-100); Mean Platelet Volume 10.8 fl (7.4-10.4); Monocytes Absolute Auto 0.6 K/mm3 (0.1-0.6); Monocytes Percent Auto 8.9 % (2.6-8.5); Neutrophils Absolute Auto 3.5 K/mm3 (1.3-6.7); Neutrophils Percent Auto 54.3 % (45.5-73.1); Platelet Count Result 240 k/mm3 (150-375); Red Blood Count 4.51 M/mm3 (4.2-5.4); White Blood Count 6.4 K/mm3 (4.5-10.0)
[2020-04-27 10:06] LABS: Alanine Aminotransferase 18 U/L (4-35); Albumin Level 4.5 g/dL (3.5-5.1); Alkaline Phosphatase 89 U/L (38-126); Anion Gap 8 mmol/L (8-16); Aspartate Amino Transferase 28 U/L (14-36); Bilirubin,Total 0.8 mg/dL (0.2-1.3); Blood Urea Nitrogen 11 mg/dL (7-17); Calcium 9.5 mg/dL (8.4-10.2); Carbon Dioxide 27 mmol/L (22-30); Chloride 102 mmol/L (98-107); Estimated CRCL calculation 28 ml/min; Estimated Glomerular Filt Rate 43; Glucose 141 mg/dL (65-105); Lipase 57 U/L (23-300); Potassium 3.9 mmol/L (3.4-5.0); Sodium 137 mmol/L (137-145)
[2020-04-27 10:07] LABS: Add Urine Microscopic? YES; Appearance Urine Clear (Clear); Bilirubin Urine Negative (Negative); Blood Urine 1+ (Negative); Color Urine Yellow (Yellow); Glucose Urine UA Negative (Negative); Ketones Urine Negative (Negative); Leukocyte Esterase Ur 1+ LEU/UL (Negative); Nitrate Urine Negative (Negative); Protein Urine Negative (Negative); Specific Grav Ur 1.011 (1.001-1.035); Urobilinogen Urine Negative mg/dL (<2.0)
[2020-04-27 10:28] VITALS: BP 154/77; BP 156/55; BP 160/59; PULSE 59; PULSE 63; PULSE 65
[2020-04-27] MEDS: SODIUM CHLORIDE 0.9% IV 500 ML 999 ML IV CONT (10:43)
[2020-04-27] MEDS: FAMOTIDINE 20 MG/2 ML VIAL IV PUSH (10:43)
[2020-04-27] MEDS: ONDANSETRON INJ 4 MG/2 ML VIAL IV PUSH (10:43)
[2020-04-27 10:44] VITALS: BP 143/73; O2SAT 99
--- NOTE | 2020-04-27 10:44 | ED.GENADULT ---
HPI - General Adult General Chief complaint: Nausea/Vomiting/Diarrhea <TAJ Driscoll Last Filed: 04/27/20 12:09> Stated complaint: nausea <TAJ Driscoll Last Filed: 04/27/20 12:09> Time Seen by Provider: 04/27/20 10:06 <TAJ Driscoll Last Filed: 04/27/20 12:09> Source: patient, family and old records reviewed <TAJ Driscoll Last Filed: 04/27/20 12:09> Mode of arrival: ambulatory <TAJ Driscoll Last Filed: 04/27/20 12:09> Limitations: no limitations <TAJ Driscoll Last Filed: 04/27/20 12:09> History of Present Illness HPI narrative: Patient is a 80-year-old female who presents to emergency department for evaluation of nausea abdominal discomfort over the last day patient denies any vomiting diarrhea change in bowel habit patient presents in no distress has not taken anything for her symptoms notes that she had been seen in the last month for similar symptoms which were worse at the time patient otherwise resting comfortably in the room upon arrival in no distress accompanied by family <TAJ Driscoll Last Filed: 04/27/20 12:09> Related Data Allergies/adverse reactions: Allergies Allergy/AdvReac Type Severity Reaction Status Date / Time Penicillins Allergy Severe Hives Verified 04/21/20 10:10 Quinolones Allergy Mild Unknown Verified 04/21/20 10:10 cefprozil Allergy Unknown Unknown Verified 04/21/20 10:10 cefuroxime Allergy Unknown Unknown Verified 04/21/20 10:10 Cephalosporins Allergy Unknown Unknown Verified 04/21/20 10:10 erythromycin base Allergy Unknown Stomach Verified 04/21/20 10:10 cramps gatifloxacin Allergy Unknown Unknown Verified 04/21/20 10:10 metronidazole Allergy Unknown Unknown Verified 04/21/20 10:10 <TAJ Driscoll Last Filed: 04/27/20 12:09> Review of Systems Review of Systems: All systems reviewed & are unremarkable except as noted in HPI and below <TAJ Driscoll Last Filed: 04/27/20 12:09> PMFSH Past Medical History Medical History: Medical History Anxiety Aortic valve regurgitation Moderate by echocardiogram in October 2018. Followed by Dr. Velasco. Arthritis Benzodiazepine dependence Bronchiectasis Prior imaging demonstrated bronchiectasis in bilateral lower lobes with chronic scarring. Chronic kidney disease, stage 3 Baseline creatinine between 1.20 and 1.40. Chronic midline low back pain with sciatica Dementia Reported by daughter, however the patient disputes this. Depression Diverticulitis GERD (gastroesophageal reflux disease) Hyperlipidemia Hypertension Obstructive sleep apnea Paroxysmal atrial fibrillation She has declined anticoagulation and antiarrhythmics previously, and is on pantoprazole daily. She is followed by Dr. Velasco. <Aaron Little PA-C - Last Filed: 04/27/20 12:09> Surgical History Surgical History: Surgical History History of appendectomy History of cardiac catheterization No known intervention. History of cataract surgery History of cholecystectomy Status post appendectomy Status post cataract extraction Status post hysterectomy Status post tubal ligation <Aaron Little PA-C - Last Filed: 04/27/20 12:09> Family History Family History: Family History Father Acute myocardial infarction Family history of alcoholism Mother Family history of alcoholism Sibling Acute myocardial infarction Sibling Brain aneurysm <Aaron Little PA-C - Last Filed: 04/27/20 12:09> Social History Social History: Social History Social History: The patient has been for 2+ years. She lives in [place] with her daughter, son-in-law, and grandchildren. She has 3 d
[2020-04-27 12:29] VITALS: BP 154/77; PULSE 56; RESP 16; TEMP 36.6; O2SAT 99
== END 2020-04-27 12:32 | disposition home or self-care (01) ==
PROVIDERS: Emergency Provider Emergency Medicine; PCP Family Medicine
DX: N39.0 Urinary tract infection, site not specified (principal); E86.0 Dehydration; I35.1 Nonrheumatic aortic (valve) insufficiency; I12.9 Hypertensive chronic kidney disease with stage 1 through stage 4 chronic kidney disease, or unspecified chronic kidney disease; N18.3 Chronic kidney disease, stage 3 (moderate); F03.90 Unspecified dementia, unspecified severity, without behavioral disturbance, psychotic disturbance, mood disturbance, and anxiety; K21.9 Gastro-esophageal reflux disease without esophagitis; E78.5 Hyperlipidemia, unspecified; G47.33 Obstructive sleep apnea (adult) (pediatric); I48.0 Paroxysmal atrial fibrillation; M19.90 Unspecified osteoarthritis, unspecified site
CPT/HCPCS: 36415; 74176; 80053; 81001; 83690; 85025; 87086; 96365; 96375; 99284; J0131; J2405; J7040

== ENCOUNTER 2020-07-08 13:13 | Emergency (ER) | payer MEDICARE, SELFPAY ==
[2020-07-08] VITALS (19 sets, daily range): BP systolic 162–189; BP diastolic 67–91; PULSE 89; RESP 16; TEMP 36.8; O2SAT 91–98
--- NOTE | ~2020-07-08 | XR_ITS ---
EXAMINATION: XR chest 1V portable DATE: 07/08/2020 16:02 INDICATION: Cough, shortness of breath and weakness. TECHNIQUE: frontal view of the chest was obtained. COMPARISON: Chest radiograph dated 02/23/2020 and 04/19/[address] dated 04/19/2019 FINDINGS: Again seen is a subtle nodular opacity right upper lung zone which appears to correspond to a small b and of chronic atelectasis/scarring. Additional unchanged mild atelectasis/scarring at the lateral le ft lung base. Increased prominence of the bronchovascular pattern in the bilateral infrahilar regions likely related to bronchiectasis. This region on the prior CT potentially with superimposed bronchit is. No other focal consolidation, pleural effusion or pneumothorax. The cardiomediastinal silhouette is normal. IMPRESSION: 1. Increased prominence of the bronchovascular pattern in the bilateral infrahilar regions likely rel ated to bronchiectasis seen at these locations on the prior CT potentially superimposed bronchitis or mild pulmonary edema. Reviewed, dictated and finalized at location [facility]. ENT RESOURCE SPECIALIST IMPRESSION: 1. Increased prominence of the bronchovascular pattern in the bilateral infrahi lar regions likely related to bronchiectasis seen at these locations on the [place] or CT potentially superimposed bronchitis or mild pulmonary edema.
--- NOTE | 2020-07-08 15:20 | PC.NURSE ---
SL inserted. placed on physical fitness teacher. alert. oriented. assessments documented.
--- NOTE | 2020-07-08 15:35 | PC.NURSE ---
patient brought back to ED room 11 with cold symptoms per patient's report. states that her daughter gave her this cold. denies cough. denies known fever at home. mild nausea but no emesis. denies diarrhea. assessments documented.
--- NOTE | 2020-07-08 15:46 | ED.GENADULT ---
HPI - General Adult General Chief complaint: Upper Respiratory Infection Stated complaint: N/D, STUFFY NOSE, COUGH Time Seen by Provider: 07/08/20 15:19 Source: patient Mode of arrival: ambulatory Limitations: no limitations History of Present Illness HPI narrative: Patient is an 80-year-old female who presents to emergency department for evaluation of upper respiratory symptoms for the last several days no she has a family member who was negative for Covid who she believes she caught the cold from patient notes rhinorrhea congestion sore throat cough otherwise resting comfortably in the room in no distress Related Data Allergies Allergy/AdvReac Type Severity Reaction Status Date / Time Penicillins Allergy Severe Hives Verified 05/27/20 09:42 nitrofurantoin Allergy Intermediate Hives Verified 07/07/20 10:20 [From Macrobid] Quinolones Allergy Mild Unknown Verified 05/27/20 09:42 cefprozil Allergy Unknown Unknown Verified 05/27/20 09:42 cefuroxime Allergy Unknown Unknown Verified 05/27/20 09:42 Cephalosporins Allergy Unknown Unknown Verified 05/27/20 09:42 erythromycin base Allergy Unknown Stomach Verified 05/27/20 09:42 cramps gatifloxacin Allergy Unknown Unknown Verified 05/27/20 09:42 metronidazole Allergy Unknown Unknown Verified 05/27/20 09:42 Review of Systems Review of Systems: All systems reviewed & are unremarkable except as noted in HPI and below PMFSH Past Medical History Medical History (Updated 07/08/20 @ 18:05 by Aaron Little PA-C) Anxiety Aortic valve regurgitation Moderate by echocardiogram in October 2018. Followed by Dr. Velasco. Arthritis Benzodiazepine dependence Bronchiectasis Prior imaging demonstrated bronchiectasis in bilateral lower lobes with chronic scarring. Chronic kidney disease, stage 3 Baseline creatinine between 1.20 and 1.40. Chronic midline low back pain with sciatica Dementia Reported by daughter, however the patient disputes this. Depression Diverticulitis GERD (gastroesophageal reflux disease) Hyperlipidemia Hypertension Obstructive sleep apnea Paroxysmal atrial fibrillation She has declined anticoagulation and antiarrhythmics previously, and is on pantoprazole daily. She is followed by Dr. Velasco. Surgical History Surgical History History of appendectomy History of cardiac catheterization No known intervention. History of cataract surgery History of cholecystectomy Status post appendectomy Status post cataract extraction Status post hysterectomy Status post tubal ligation Family History Family History Father Acute myocardial infarction Family history of alcoholism Mother Family history of alcoholism Sibling Acute myocardial infarction Sibling Brain aneurysm Social History Social History Social History: The patient has been for 2+ years. She lives in [place] with her daughter, son-in-law, and grandchildren. She has 3 daughters, 1 from an [place] at age 30. She is a lifelong nonsmoker and denies alcohol and drug use. Smoking status: Never smoker Second hand tobacco smoke exposure: Yes Alcohol intake: never Substance use: never Substance use type: does not use Gender identity (if verbalized by the patient): Female Spiritual care concerns: No Agree to blood products: Yes Exam Narrative: Exam Narrative: GENERAL: Well-appearing, well-nourished, and in no acute distress. HEAD: Normocephalic, atraumatic. EYES: PERRLA and EOMI. ENT: Nares clear, no rhinorrhea or epistaxis. Mucous membranes moist. CHEST: Clear to auscultation. No respiratory distress. No wheezes rales or rhonchi HEART: Regular rate and rhythm. No murmur heard. Normal peripheral pulses. ABDOMEN: Soft, nontender, distended EXTREMITIES: Normal range of motion. No edema. SKIN:
[2020-07-08 15:52] LABS: Basophils Absolute Auto 0.1 K/mm3 (0.0-0.1); Basophils Percent Auto 0.3 % (0.2-1.2); Eosinophils Absolute Auto 0.2 K/mm3 (0-0.3); Eosinophils Percent Auto 1.4 % (0-4.4); Hematocrit 39.2 % (37.0-47.0); Hemoglobin 12.9 g/dL (12.0-15.0); Immature Granulocyte Absolute 0.07 K/mm3 (0.00-0.031); Immature Granulocyte Percent A 0.5 % (0-0.5); Lymphocytes Absolute Auto 1.55 K/mm3 (0.9-3.2); Lymphocytes Percent Auto 10.8 % (18.3-44.2); Mean Corpuscular HGB Conc 32.9 g/dl (32-36); Mean Corpuscular Hemoglobin 29.7 pg (26-34); Mean Corpuscular Volume 90.1 fl (80-100); Mean Platelet Volume 10.2 fl (7.4-10.4); Monocytes Absolute Auto 0.8 K/mm3 (0.1-0.6); Monocytes Percent Auto 5.9 % (2.6-8.5); Neutrophils Absolute Auto 11.6 K/mm3 (1.3-6.7); Neutrophils Percent Auto 81.1 % (45.5-73.1); Platelet Count Result 197 k/mm3 (150-375); Red Blood Count 4.35 M/mm3 (4.2-5.4); Red Cell Distribution Width 14.1 % (11.5-14.5); White Blood Count 14.3 K/mm3 (4.5-10.0)
[2020-07-08 16:03] LABS: Alanine Aminotransferase 14 U/L (4-35); Albumin Level 4.4 g/dL (3.5-5.1); Alkaline Phosphatase 89 U/L (38-126); Anion Gap 12 mmol/L (8-16); Aspartate Amino Transferase 24 U/L (14-36); Bilirubin,Total 0.9 mg/dL (0.2-1.3); Blood Urea Nitrogen 10 mg/dL (7-17); Calcium 9.6 mg/dL (8.4-10.2); Carbon Dioxide 24 mmol/L (22-30); Chloride 100 mmol/L (98-107); Estimated CRCL calculation 26 ml/min; Estimated Glomerular Filt Rate 39; Glucose 114 mg/dL (65-105); Potassium 3.8 mmol/L (3.4-5.0); Sodium 136 mmol/L (137-145)
--- NOTE | 2020-07-08 17:15 | PC.NURSE ---
molecular technologist in room. urine specimen collected. patient updated on current treatment plan and expected wait time. on monitor technician. alert. denies additional needs right now. has her call light in reach.
[2020-07-08 17:33] LABS: Add Urine Microscopic? NO; Appearance Urine Clear (Clear); Bilirubin Urine Negative (Negative); Blood Urine Negative (Negative); Color Urine Straw (Yellow); Glucose Urine UA Negative (Negative); Ketones Urine Negative (Negative); Leukocyte Esterase Ur Negative LEU/UL (Negative); Nitrate Urine Negative (Negative); Protein Urine Negative (Negative); Specific Grav Ur 1.008 (1.001-1.035); Urobilinogen Urine Negative mg/dL (<2.0)
--- NOTE | 2020-07-08 17:50 | PC.NURSE ---
provider at bedside. all test results reviewed with patient.
[2020-07-09 14:56] LABS: SARS-CoV-2 RNA PCR Negative
== END 2020-07-08 18:16 | disposition home or self-care (01) ==
PROVIDERS: Emergency Medicine Emergency Medical Services; Emergency Provider Emergency Medicine; PCP Family Medicine
DX: Z20.828 Contact with and (suspected) exposure to other viral communicable diseases (principal); J06.9 Acute upper respiratory infection, unspecified; F41.9 Anxiety disorder, unspecified; M19.90 Unspecified osteoarthritis, unspecified site; I12.9 Hypertensive chronic kidney disease with stage 1 through stage 4 chronic kidney disease, or unspecified chronic kidney disease; N18.30 Chronic kidney disease, stage 3 unspecified; F03.90 Unspecified dementia, unspecified severity, without behavioral disturbance, psychotic disturbance, mood disturbance, and anxiety; K21.9 Gastro-esophageal reflux disease without esophagitis; G47.30 Sleep apnea, unspecified
CPT/HCPCS: 36415; 51701; 71045; 80053; 81003; 85025; 87635; 99283; C9803; U0003

== ENCOUNTER 2020-10-19 13:00 | Emergency (ER) | payer MEDICARE, SELFPAY ==
--- NOTE | ~2020-10-19 | CT_ITS ---
EXAMINATION: CT abdomen pelvis w con DATE: 10/19/2020 15:38 INDICATION: Abdominal pain since yesterday. Possible food poisoning. TECHNIQUE: Computed tomography (CT) of the abdomen and pelvis was performed with 100 cc Omnipaque 350 intravenous contrast. Automated exposure control and iterative reconstruction technique were employe d. Exam dose: 427.73 mGy-cm total exam DLP. COMPARISON: CT abdomen pelvis FINDINGS: There is minimal atelectasis or scarring at the lung bases. No basilar consolidation. Heart size is within normal limits. No pericardial or pleural effusion. No hepatic space-occupying mass lesion. Status post cholecystectomy. Mild prominence of the intrahepa tic and extr hepatic bile ducts is likely secondary to the cholecystectomy. No pancreatic mass lesion or calcification or ductal dilatation. Normal morphology of the adrenal glands. Normal splenic size with occasional calcified granulomas. No renal mass lesion. No urinary tract calculus or hydroureteronephrosis. The urinary bladder is unre markable. Status post hysterectomy. Minimal sigmoid diverticulosis; no CT evidence of diverticulitis. No bowel obstruction, bowel wall th ickening, pneumatosis or intraperitoneal free air. The appendix is likely absent. There is calcification of the abdominal aorta and at the origin of the right renal artery. No abdomin al aortic aneurysm. There is bilateral iliac artery calcification. No intraperitoneal or retroperiton eal or pelvic mass lesion or adenopathy or ascites is detected. There are some small supraumbilical ventral abdominal wall fat-containing hernias There is diffuse osteopenia. There are degenerative changes of the thoracic and lumbar spine. Moderat titi severe degenerative disc disease and grade 1 anterolisthesis at L4-5 and L5-S1. Prominent degener ative change at the apophyseal joints of the lumbar spine. Osteoarthritis at the hip joints. No suspicious osteolytic or osteoblastic lesions. IMPRESSION: Status post cholecystectomy Probable appendectomy Status post hysterectomy Minimal sigmoid diverticulosis; no CT evidence of diverticulitis No bowel obstruction or intraperitoneal free air Reviewed, dictated and finalized at [facility]. Reviewed, dictated and finalized at location [facility]. TICS AND COMPOSITES INSPECTOR
[2020-10-19 13:12] VITALS: BP 162/63; PULSE 63; RESP 20; TEMP 36.6; O2SAT 96
[2020-10-19 13:24] LABS: Basophils Absolute Auto 0.1 K/mm3 (0.0-0.1); Basophils Percent Auto 0.7 % (0.2-1.2); Eosinophils Absolute Auto 0.3 K/mm3 (0-0.3); Eosinophils Percent Auto 2.8 % (0-4.4); Hematocrit 40.3 % (37.0-47.0); Immature Granulocyte Absolute 0.03 K/mm3 (0.00-0.031); Immature Granulocyte Percent A 0.3 % (0-0.5); Lymphocytes Absolute Auto 2.27 K/mm3 (0.9-3.2); Lymphocytes Percent Auto 24.3 % (18.3-44.2); Mean Corpuscular HGB Conc 32.3 g/dl (32-36); Mean Corpuscular Hemoglobin 28.9 pg (26-34); Mean Corpuscular Volume 89.6 fl (80-100); Mean Platelet Volume 9.8 fl (7.4-10.4); Monocytes Absolute Auto 0.6 K/mm3 (0.1-0.6); Monocytes Percent Auto 6.2 % (2.6-8.5); Neutrophils Absolute Auto 6.1 K/mm3 (1.3-6.7); Neutrophils Percent Auto 65.7 % (45.5-73.1); Platelet Count Result 211 k/mm3 (150-375); Red Cell Distribution Width 13.5 % (11.5-14.5); White Blood Count 9.4 K/mm3 (4.5-10.0)
[2020-10-19 13:26] LABS: Add Urine Microscopic? NO; Appearance Urine Clear (Clear); Bilirubin Urine Negative (Negative); Blood Urine Negative (Negative); Color Urine Colorless (Yellow); Glucose Urine UA Negative (Negative); Ketones Urine Negative (Negative); Leukocyte Esterase Ur Negative LEU/UL (Negative); Nitrate Urine Negative (Negative); Protein Urine Negative (Negative); Urobilinogen Urine Negative mg/dL (<2.0)
[2020-10-19 13:28] LABS: Specific Grav Ur 1.004 (1.001-1.035)
[2020-10-19 13:38] LABS: Alanine Aminotransferase 13 U/L (4-35); Albumin Level 4.1 g/dL (3.5-5.1); Alkaline Phosphatase 98 U/L (38-126); Anion Gap 8 mmol/L (8-16); Aspartate Amino Transferase 24 U/L (14-36); Bilirubin,Total 0.5 mg/dL (0.2-1.3); Blood Urea Nitrogen 12 mg/dL (7-17); Calcium 9.6 mg/dL (8.4-10.2); Carbon Dioxide 26 mmol/L (22-30); Chloride 107 mmol/L (98-107); Estimated CRCL calculation 29 ml/min; Estimated Glomerular Filt Rate 48; Glucose 125 mg/dL (65-105); Lipase 88 U/L (23-300); Sodium 141 mmol/L (137-145)
--- NOTE | 2020-10-19 14:49 | ED.ABDPAIN ---
HPI - Abdominal Pain General Chief Complaint: Abdominal Pain Stated Complaint: ABD Pain Time Seen by Provider: 10/19/20 14:46 Source: RN notes reviewed History of Present Illness HPI narrative: Patient presents to emergency department from home for abdominal pain. Patient states that she went to the [employer] yesterday and ate a BLT and has been having abdominal pain since that time dental pain is described as cramping in nature associated with nausea she denies any fevers or chills chest pain shortness of breath vomiting diarrhea or any other symptoms states she is taken no pain medication at home Related Data Allergies Allergy/AdvReac Type Severity Reaction Status Date / Time Penicillins Allergy Severe Hives Verified 08/19/20 12:29 nitrofurantoin Allergy Intermediate Hives Verified 08/19/20 12:29 [From Macrobid] Quinolones Allergy Mild Unknown Verified 08/19/20 12:29 cefprozil Allergy Unknown Unknown Verified 08/19/20 12:29 cefuroxime Allergy Unknown Unknown Verified 08/19/20 12:29 Cephalosporins Allergy Unknown Unknown Verified 08/19/20 12:29 erythromycin base Allergy Unknown Stomach Verified 08/19/20 12:29 cramps gatifloxacin Allergy Unknown Unknown Verified 08/19/20 12:29 metronidazole Allergy Unknown Unknown Verified 08/19/20 12:29 loratadine [From Claritin] AdvReac Jittery Verified 08/19/20 12:29 Review of Systems Review of Systems: Narrative: Gen.: Denies fevers or chills ENT: Denies congestion Respiratory: Denies shortness of breath or cough CV: Denies chest pain or palpitations GI: See HPI denies burning, urgency, frequency or hematuria Musculoskeletal: Denies back pain or muscle pain Neuro: Denies numbness, tingling, weakness or focal weakness Skin: Denies rash Except as documented, all other systems reviewed and negative PMFSH Past Medical History Medical History Anxiety Aortic valve regurgitation Moderate by echocardiogram in October 2018. Followed by Dr. Velasco. Arthritis Benzodiazepine dependence BMI 27.0-27.9,adult Bronchiectasis Prior imaging demonstrated bronchiectasis in bilateral lower lobes with chronic scarring. Chronic kidney disease, stage 3 Baseline creatinine between 1.20 and 1.40. Chronic midline low back pain with sciatica Dementia Reported by daughter, however the patient disputes this. Depression Diverticulitis GERD (gastroesophageal reflux disease) Hyperlipidemia Hypertension Obstructive sleep apnea Paroxysmal atrial fibrillation She has declined anticoagulation and antiarrhythmics previously, and is on pantoprazole daily. She is followed by Dr. Velasco. Surgical History Surgical History History of appendectomy History of cardiac catheterization No known intervention. History of cataract surgery History of cholecystectomy Status post appendectomy Status post cataract extraction Status post hysterectomy Status post tubal ligation Family History Family History Father Acute myocardial infarction Family history of alcoholism Mother Family history of alcoholism Sibling Acute myocardial infarction Sibling Brain aneurysm Social History Social History Social History: The patient has been for 2+ years. She lives in [place] with her daughter, son-in-law, and grandchildren. She has 3 daughters, 1 from an CA at age 30. She is a lifelong nonsmoker and denies alcohol and drug use. Smoking status: Never smoker Second hand tobacco smoke exposure: Yes Alcohol intake: never Substance use: never Substance use type: does not use Gender identity (if verbalized by the patient): Female Spiritual care concerns: No Agree to blood products: Yes Exam Narrative: Exam Narrative: APPEARANCE: No acute distress, nontoxi
[2020-10-19] MEDS: SODIUM CHLORIDE 0.9% IV 1,000 ML 999 ML IV CONT (15:13)
[2020-10-19] MEDS: ONDANSETRON INJ 4 MG/2 ML VIAL IV PUSH (15:13)
[2020-10-19 15:14] VITALS: BP 156/87; PULSE 69; RESP 15; O2SAT 97
[2020-10-19 16:55] VITALS: BP 142/80; PULSE 67; RESP 15; O2SAT 98
== END 2020-10-19 16:57 | disposition home or self-care (01) ==
PROVIDERS: Emergency Medicine; Emergency Provider Emergency Medicine; PCP Family Medicine
DX: R10.9 Unspecified abdominal pain (principal); R11.0 Nausea; I35.1 Nonrheumatic aortic (valve) insufficiency; M19.90 Unspecified osteoarthritis, unspecified site; I12.9 Hypertensive chronic kidney disease with stage 1 through stage 4 chronic kidney disease, or unspecified chronic kidney disease; N18.30 Chronic kidney disease, stage 3 unspecified; E78.5 Hyperlipidemia, unspecified; G47.33 Obstructive sleep apnea (adult) (pediatric); I48.0 Paroxysmal atrial fibrillation; Z79.82 Long term (current) use of aspirin; F41.9 Anxiety disorder, unspecified; F32.9 Major depressive disorder, single episode, unspecified; K57.30 Diverticulosis of large intestine without perforation or abscess without bleeding
CPT/HCPCS: 36415; 74177; 80053; 81003; 83690; 85025; 96361; 96365; 96375; 99284; J0131; J2405; J7030; Q9967

== ENCOUNTER 2020-11-16 12:29 | Observation (INO) | payer MEDICARE, SELFPAY ==
[2020-11-16] VITALS (17 sets, daily range): BP systolic 109–172; BP diastolic 43–85; PULSE 47–117; RESP 15–25; TEMP 35.8–36.5; O2SAT 97–100; BMI 27.7
--- NOTE | ~2020-11-16 | CT_ITS ---
EXAMINATION: CT brain wo con DATE: 11/16/2020 13:27 INDICATION: Weakness and dizziness TECHNIQUE: Computed tomography (CT) of the head was performed without intravenous contrast. Sagittal and coronal reconstructions were performed. The mA was adjusted according to patient size. Iterative reconstruction technique was employed. The dose-length product was 605.33 mGy-cm. COMPARISON: head CT dated 08/08/19 FINDINGS: No acute intracranial hemorrhage, acute infarction or abnormal extra axial fluid collection. There is mild scattered white matter hypoattenuation consistent with chronic small vessel ischemic disease. S ymmetric prominence of the sulci and ventricles consistent with mild to moderate age-appropriate diff use cerebral volume loss. No mass/mass effect. Changes of bilateral intraocular lens replacement. The re is some bubbly mucus in the right frontal sinus. The mastoid air cells are normal. IMPRESSION: 1. No acute intracranial process. 2. Age-related changes including mild to moderate diffuse volume loss and mild scattered white matter hypoattenuation consistent with chronic small vessel ischemic disease. Reviewed, dictated and finalized at location A. IMPRESSION: 1. No acute intracranial process. 2. Age-related changes including mild to moderate diffuse volume loss and mild scattered white matter hypoattenuation consistent with chronic small vessel isc hemic disease.
--- NOTE | ~2020-11-16 | CT_ITS ---
EXAMINATION: CTA chest PE protocol DATE: 11/16/2020 14:36 INDICATION: Chest pain TECHNIQUE: Computed tomography angiography (CTA) of the chest was performed with 100 mL Omnipaque-350 intravenous contrast timed to evaluate the pulmonary arteries. Coronal maximum intensity projection 3D-reconstructions were created by the technologist. Automated exposure control and iterative reconst ruction technique were employed. Exam dose: 259.96 mGy-cm total exam DLP. COMPARISON: 04/19/2019 CT pulmonary scan 11/16/2020 portable AP chest FINDINGS: There is diagnostic contrast enhancement of the pulmonary arteries and no evidence of pulmo nary embolism. No hilar or mediastinal mass lesion or lymphadenopathy. No thoracic aortic aneurysm or dissection. There is aortic as well as great vessel calcification in addition to coronary artery calcifications. Mild cardiomegaly. No pericardial or pleural effusion. There is irregular spiculated soft tissue density in the right upper lobe measuring up to approximate ly 4 cm maximal dimension. Differential diagnosis includes scarring versus pulmonary malignancy. PET/ CT imaging is recommended for further evaluation. Otherwise no pulmonary consolidation is noted. Status post cholecystectomy. The adrenal glands are normal in appearance. IMPRESSION: No evidence of pulmonary aneurysm Irregular spiculated soft tissue density in the right upper lobe; PET/CT images recommended for evalu ation of possible right upper lobe malignancy versus scarring Reviewed, dictated and finalized at [facility]. Reviewed, dictated and finalized at location [facility]. IMPRESSION: No evidence of pulmonary aneurysm Irregular spiculated soft tissue density in the right upper lobe; PET/CT images recommended for evaluation of possible right upper lobe malignancy versus scar ring
--- NOTE | ~2020-11-16 | US_ITS ---
EXAMINATION:US venous doppler LE BI INDICATION:Swelling and calf pain TECHNIQUE: Multiple grayscale, color flow and Doppler images of the bilateral lower extremity deep ve nous systems were obtained and reviewed. COMPARISON:04/03/2018 FINDINGS: The common femoral, superficial femoral and popliteal veins demonstrate normal respiratory variation, augmentation and compressibility. Color flow is also seen within the posterior tibial, pe roneal, greater saphenous and profunda veins. IMPRESSION: 1: No lower extremity deep venous thrombosis. Reviewed, dictated and finalized at location A.
--- NOTE | ~2020-11-16 | XR_ITS ---
XR chest 1V portable DATE: 11/16/2020 13:35 INDICATION: Chest pain TECHNIQUE: Portable upright AP chest on 11/16/2020 at 1336 hours COMPARISON: 07/08/2020 portable AP chest FINDINGS: Heart size is within normal range. Is mild aortic unfolding. No hilar or mediastinal enlarg ement. No pulmonary infiltrate or consolidation, pleural effusion or pulmonary vascular congestion or pneumo thorax. Diffuse osteopenia. IMPRESSION: No active cardiopulmonary disease Reviewed, dictated and finalized at location B.
--- NOTE | 2020-11-16 12:51 | ECG_ITS ---
Measurements Intervals [place] Rate: 117 P: TX: 0 QRS: -23 QRSD: 74 T: 90 QT: 312 QTc: 437 Interpretive Statements ATRIAL FIBRILLATION WITH RAPID VENTRICULAR RESPONSE DELAYED PRECORDIAL R/S TRANSITION VOLTAGE CRITERIA FOR LVH ST-T WAVE ABNORMALITY IN HIGH LATERAL LEADS- CONSIDER ISCHEMIA ABNORMAL ECG Electronically Signed On 11-16-2020 13:53:06 CDT by Seamus Cowan D.O.
--- NOTE | 2020-11-16 12:53 | ED.CHESTPAIN ---
HPI - Chest Pain General Chief Complaint: Chest Pain Stated Complaint: CP Time Seen by Provider: 11/16/20 12:38 Source: patient Mode of arrival: EMS History of Present Illness HPI narrative: This is an 80 year old female with history of paroxysmal atrial fibrillation, hypertension, hyperlipidemia and anxiety who presents for evaluation of weakness and chest pain. She reports weakness for 2 days. Today she developed intermittent dizziness and substernal chest pain. She has chest pain with inspiration. She denies nausea, vomiting, diarrhea, cough, fever, or abdominal pain. She has chronic bilateral leg swelling but she states it has not worsened. She does reports bilateral calf pain. EMS found patient to be in atrial fibrillation with RVR and her daughter reports she has a history of afib. 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 She states she has taken her medications today which includes aspirin. Related Data Home Medications Medication Instructions Recorded Confirmed melatonin 3 mg PO HS PRN 11/16/20 11/16/20 Allergies Allergy/AdvReac Type Severity Reaction Status Date / Time Penicillins Allergy Severe Hives Verified 11/04/20 09:56 nitrofurantoin Allergy Intermediate Hives Verified 11/04/20 09:56 [From Macrobid] Quinolones Allergy Mild Unknown Verified 11/04/20 09:56 cefprozil Allergy Unknown Unknown Verified 11/04/20 09:56 cefuroxime Allergy Unknown Unknown Verified 11/04/20 09:56 Cephalosporins Allergy Unknown Unknown Verified 11/04/20 09:56 erythromycin base Allergy Unknown Stomach Verified 11/04/20 09:56 cramps gatifloxacin Allergy Unknown Unknown Verified 11/04/20 09:56 metronidazole Allergy Unknown Unknown Verified 11/04/20 09:56 loratadine [From Claritin] AdvReac Jittery Verified 11/04/20 09:56 Review of Systems Review of Systems: All systems reviewed & are unremarkable except as noted in HPI and below Constitutional: Constitutional: Denies chills, Reports fatigue and Denies fever(s) Cardiovascular: Cardiovascular: Reports chest pain Respiratory: Respiratory: Denies cough and Reports dyspnea Gastrointestinal: Gastrointestinal: Denies abdominal pain, Denies diarrhea, Denies nausea and Denies vomiting [facility] Past Medical History Medical History (Updated 11/16/20 @ 20:42 by Maine Ribeiro MD) Anxiety Aortic valve regurgitation Moderate by echocardiogram in October 2018. Followed by Dr. Velasco. Arthritis Benzodiazepine dependence BMI 27.0-27.9,adult BMI 28.0-28.9,adult Bronchiectasis Prior imaging demonstrated bronchiectasis in bilateral lower lobes with chronic scarring. Chronic kidney disease, stage 3 Baseline creatinine between 1.20 and 1.40. Chronic midline low back pain with sciatica Dementia Reported by daughter, however the patient disputes this. Depression Diverticulitis GERD (gastroesophageal reflux disease) Hyperlipidemia Hypertension Nausea Obstructive sleep apnea Paroxysmal atrial fibrillation She has declined anticoagulation and antiarrhythmics previously, and is on pantoprazole daily. She is followed by Dr. Velasco. Surgical History Surgical History History of appendectomy History of cardiac catheterization No known intervention. History of cataract surgery History of cholecystectomy Status post appendectomy Status post cataract extraction Status post hysterectomy Status post tubal ligation Family History Family History Father Acute myocardial infarction Family history of alcoholism Mother Family history of alcoholism Sibling Acute myocardial infarction Sibling Brain aneurysm Social History Social History Social History: The patient has been for 2+ years. She lives in [place] with her daughter, son-in-law, and grandchildren. She has 3 daughters, 1 from an ID at age 30.
[2020-11-16 14:03] LABS: Basophils Absolute Auto 0.1 K/mm3 (0.0-0.1); Basophils Percent Auto 0.6 % (0.2-1.2); Eosinophils Absolute Auto 0.2 K/mm3 (0-0.3); Eosinophils Percent Auto 2.2 % (0-4.4); Hematocrit 41.1 % (37.0-47.0); Hemoglobin 13.6 g/dL (12.0-15.0); Immature Granulocyte Absolute 0.01 K/mm3 (0.00-0.031); Immature Granulocyte Percent A 0.1 % (0-0.5); Lymphocytes Absolute Auto 1.89 K/mm3 (0.9-3.2); Lymphocytes Percent Auto 23.5 % (18.3-44.2); Mean Corpuscular HGB Conc 33.1 g/dl (32-36); Mean Corpuscular Hemoglobin 29.2 pg (26-34); Mean Corpuscular Volume 88.4 fl (80-100); Mean Platelet Volume 10.2 fl (7.4-10.4); Monocytes Absolute Auto 0.6 K/mm3 (0.1-0.6); Monocytes Percent Auto 7.1 % (2.6-8.5); Neutrophils Absolute Auto 5.3 K/mm3 (1.3-6.7); Neutrophils Percent Auto 66.5 % (45.5-73.1); Platelet Count Result 204 k/mm3 (150-375); Red Blood Count 4.65 M/mm3 (4.2-5.4); Red Cell Distribution Width 13.3 % (11.5-14.5)
[2020-11-16 14:05] LABS: Add Urine Microscopic? NO; Appearance Urine Clear (Clear); Bilirubin Urine Negative (Negative); Blood Urine Negative (Negative); Color Urine Colorless (Yellow); Glucose Urine UA Negative (Negative); Ketones Urine Negative (Negative); Leukocyte Esterase Ur Negative LEU/UL (Negative); Nitrate Urine Negative (Negative); Protein Urine Negative (Negative); Urobilinogen Urine Negative mg/dL (<2.0)
[2020-11-16] MEDS: dilTIAZem HCl INJ 25 MG/5 ML VIAL 10 MG IV PUSH (14:05)
[2020-11-16 14:06] LABS: Specific Grav Ur 1.004 (1.001-1.035)
[2020-11-16 14:13] LABS: INR 0.9; Prothrombin Time 13.1 Seconds (11.1-14.7)
[2020-11-16 14:14] LABS: Partial Thromboplastin Time 26.6 SECONDS (22.3-36.8)
[2020-11-16 14:14] LABS: Alanine Aminotransferase 13 U/L (4-35); Albumin Level 3.9 g/dL (3.5-5.1); Alkaline Phosphatase 87 U/L (38-126); Anion Gap 7 mmol/L (8-16); Aspartate Amino Transferase 24 U/L (14-36); Bilirubin,Total 0.6 mg/dL (0.2-1.3); Blood Urea Nitrogen 11 mg/dL (7-17); Calcium 9.1 mg/dL (8.4-10.2); Carbon Dioxide 26 mmol/L (22-30); Chloride 109 mmol/L (98-107); Estimated CRCL calculation 27 ml/min; Estimated Glomerular Filt Rate 43; Glucose 105 mg/dL (65-105); Lactic Acid Reflex 1.6 mmol/L (0.7-2.1); Lipase 89 U/L (23-300); Potassium 3.9 mmol/L (3.4-5.0); Sodium 142 mmol/L (137-145)
[2020-11-16 14:16] LABS: D Dimer 0.54 ug/mL (<0.48)
[2020-11-16 14:26] LABS: NT Pro B Type Natriuretic Pept 1580 PG/ML (5-100); Troponin I < 0.012 ng/mL (0.000-0.034)
[2020-11-16] MEDS: ENOXAPARIN 80 MG/0.8 ML SYRINGE 65 MG SUB-Q (15:38)
--- NOTE | 2020-11-16 16:30 | PM.IMHP ---
H&P: HPI History of Present Illness Date/Time: 11/16/20 16:30 Chief Complaint: Weakness, chest pain. Narrative: This is an 80-year-old female with paroxysmal atrial fibrillation, hypertension, hyperlipidemia, GERD, and anxiety who presented to the emergency department earlier this afternoon for evaluation of weakness and chest pain. Her symptoms have been going on for the last 2 days with intermittent substernal chest pressure associated with feelings of racing, irregular heartbeat and generalized weakness. The pressures seems to be worse when her heart is going fast and on occasion she has increase in discomfort with deep inspiration. She also notes occasional dizziness/lightheadedness as well. She has had a lot of stress and anxiety recently and reports that is not unusual for her to have intermittent palpitations but they seem to be more frequent and lasting longer over the past couple of days. She is maintained on metoprolol for rate control but has thus far refused anticoagulation for her paroxysmal AFib. On arrival to the emergency department she was in atrial fibrillation with rapid ventricular response and was given 1 dose of diltiazem 10 milligrams IV push with improvement in her rate. Diltiazem drip was started however discontinued quite quickly as she reverted to sinus rhythm and she has now been in sinus bradycardia. She has not had any recurrent chest discomfort or lightheadedness. Her weakness seems to be only associated with the feelings of racing heart. She states compliance with her home medication. She denies significant caffeine and alcohol use. No exertional chest pain or pleuritic pain. She has mild lower extremity edema which is unchanged. Review of Systems Review of Systems: Narrative: Twelve systems were reviewed with pertinent positives and negatives as per HPI. No fever, chills, or sweats. She denies recent cold and flu symptoms. No cough or current shortness of breath. No exposure to those positive for COVID-19. No nausea, vomiting, or diarrhea. She denies dysuria. Recently had hydroxyzine added to her Xanax due to ongoing issues with anxiety. Her 2nd daughter sometime in the fall and this has caused her much distress. She also has ?a lot of tension? in the house where she lives with her son in law and daughter. More recently hydroxyzine was added to her regimen which seems to help however I am concerned she may be retaining urine given abdominal distention on exam. She also complains of a dry mouth. No focal weakness or paresthesias. Except as documented, all other systems were reviewed and are negative. [facility] Past Medical History Medical History (Updated 11/16/20 @ 21:41 by Alba Jamil PA-C) Anxiety Aortic valve regurgitation Moderate by echocardiogram in October 2018. Followed by Dr. Velasco. Arthritis Benzodiazepine dependence Bronchiectasis Prior imaging demonstrated bronchiectasis in bilateral lower lobes with chronic scarring. Chronic kidney disease, stage 3 Baseline creatinine between 1.20 and 1.40. Chronic midline low back pain with sciatica Dementia Reported by daughter, however the patient disputes this. Depression Diverticulitis Gastroesophageal reflux disease Hyperlipidemia Hypertension Nausea Obstructive sleep apnea Paroxysmal atrial fibrillation She has declined anticoagulation and antiarrhythmics previously but is now on metoprolol daily. She is followed by Dr. Velasco. Surgical History Surgical History History of appendectomy History of cardiac catheterization No known intervention. History of cataract surgery History of cholecystectomy Status post appendectomy Status post cataract extraction Status post hysterectomy Status post tubal ligation Family History Family History Father Acute myocardial infarction Family history of alcoholism
--- NOTE | 2020-11-16 17:21 | ADMGEN ---
This patient, Chiara Faith, was admitted to IMU Room 205-02. Patient/family oriented to hospital policies and general routines including ID bracelet, bed and alarms, visiting hours, pain management, procedures, bathroom and other care routines, personal items, smoking policy, room service/diet, and visiting hours. Information on how to activate the Rapid Response Team has been discussed. Patient/Family are encouraged to report perceived risks to care and to ask questions if they do not understand what they are told or what they should do.
--- NOTE | 2020-11-16 20:06 | PC.NURSE ---
Bladder scan to access for post-void residual noted 197 ml urine remaining.
[2020-11-16] MEDS: ALPRAZolam (*CRX) 0.5 MG TABLET PO (21:32)
[2020-11-16] MEDS: MELATONIN 3 MG TABLET PO (21:32)
[2020-11-17] VITALS (8 sets, daily range): BP systolic 148–176; BP diastolic 53–84; PULSE 49–68; RESP 18; TEMP 36.2–36.6; O2SAT 97–100
[2020-11-17 04:56] LABS: Basophils Absolute Auto 0.1 K/mm3 (0.0-0.1); Basophils Percent Auto 0.7 % (0.2-1.2); Eosinophils Absolute Auto 0.2 K/mm3 (0-0.3); Eosinophils Percent Auto 2.6 % (0-4.4); Hematocrit 34.9 % (37.0-47.0); Hemoglobin 11.5 g/dL (12.0-15.0); Immature Granulocyte Absolute 0.02 K/mm3 (0.00-0.031); Immature Granulocyte Percent A 0.3 % (0-0.5); Lymphocytes Absolute Auto 2.87 K/mm3 (0.9-3.2); Lymphocytes Percent Auto 38.7 % (18.3-44.2); Mean Corpuscular Hemoglobin 28.5 pg (26-34); Mean Corpuscular Volume 86.6 fl (80-100); Mean Platelet Volume 10.3 fl (7.4-10.4); Monocytes Absolute Auto 0.6 K/mm3 (0.1-0.6); Monocytes Percent Auto 7.7 % (2.6-8.5); Neutrophils Absolute Auto 3.7 K/mm3 (1.3-6.7); Platelet Count Result 163 k/mm3 (150-375); Red Blood Count 4.03 M/mm3 (4.2-5.4); Red Cell Distribution Width 13.2 % (11.5-14.5); White Blood Count 7.4 K/mm3 (4.5-10.0)
[2020-11-17 05:08] LABS: Alanine Aminotransferase 11 U/L (4-35); Albumin Level 3.3 g/dL (3.5-5.1); Alkaline Phosphatase 69 U/L (38-126); Anion Gap 4 mmol/L (8-16); Aspartate Amino Transferase 20 U/L (14-36); Bilirubin,Total 0.4 mg/dL (0.2-1.3); Blood Urea Nitrogen 13 mg/dL (7-17); Calcium 8.7 mg/dL (8.4-10.2); Carbon Dioxide 27 mmol/L (22-30); Chloride 107 mmol/L (98-107); Estimated CRCL calculation 29 ml/min; Estimated Glomerular Filt Rate 48; Glucose 105 mg/dL (65-105); Magnesium 1.9 mg/dL (1.6-2.3); Potassium 3.7 mmol/L (3.4-5.0); Sodium 138 mmol/L (137-145)
[2020-11-17 06:25] LABS: Free T4 Free Thyroxine Reflex 0.98 ng/dL (0.78-2.19)
[2020-11-17 07:38] LABS: Total Triiodothyronine (T3) 1.19 NG/ML (0.97-1.69)
--- NOTE | 2020-11-17 08:25 | PM.CNCAR ---
Assessment and Plan Assessment and plan (1) Atrial fibrillation with rapid ventricular response: Code(s): I48.91 - Unspecified atrial fibrillation Status: Acute Assessment and Plan: 80-year-old female with hypertension, paroxysmal atrial fibrillation, anxiety. Patient presented to [facility] with complaints of generalized weakness, palpitation, shortness of breath and chest pain with pleuritic features. She was found to be in atrial fibrillation with RVR, received IV diltiazem and had spontaneous evangelical of sinus rhythm. Her symptoms that brought her to the hospital resolved after evangelical of sinus rhythm. Patient has history of PAF, and has not been on chronic anticoagulation per her choice and due to history of falls. After discussion with the patient, she reported that she has not had any recurrent falls for long time. She showed interest in anticoagulation for CVA prophylaxis and would like to discuss with her primary front line leader. She has symptoms of AFib on a weekly basis associated with palpitations, generalized fatigue and shortness of breath. At this time, I would recommend following- -resume home medications including metoprolol succinate. -patient is scheduled to see Dr. Velasco on 11/24/2020. She was advised to discuss with him about starting 1 of the direct oral anticoagulants for CVA prophylaxis. -may consider outpatient event monitor to recheck burden of atrial fibrillation which may help guide antiarrhythmic treatment for patient's symptomatic AFib. -patient did have ischemic changes on the EKG during hospitalization. May consider noninvasive ischemic evaluation as an outpatient if patient is willing for further workup. May also do echocardiogram with Doppler if not already done in the outpatient setting. -patient advised to return to hospital if she has any recurrent severe symptoms. She verbalized understanding. (2) Chest pain, pleuritic: Code(s): R07.81 - Pleurodynia Status: Acute Assessment and Plan: Troponins are negative. CT scan of the head was negative for PE and dissection. CT scan of the chest also reported Irregular spiculated soft tissue density in the right upper lobe; PET/CT images recommended for evaluation of possible right upper lobe malignancy versus scarring . Additional workup as per primary team. History of Present Illness History of Present Illness Consult date/time: 11/17/20 08:25 Date of consult: 11/17/2020 Reason for consult: Atrial fibrillation Requesting physician:MD Gema Chief complaint: Weakness, chest pain, palpitations HPI: 80-year-old female with hypertension, paroxysmal atrial fibrillation, anxiety. Patient presented to [facility] on 11/16/2020 with complaints of weakness, chest pain and palpitations. Her symptoms started a day before arrival to the hospital. She states that she was feeling generalized weakness, palpitations, dizziness and had an episode of chest discomfort that lasted for several minutes and was worse with deep inspiration. She called EMS, and was found to be in AFib with RVR. EKG on presentation which I personally evaluated showed atrial fibrillation with RVR, ventricular rate 117 beats per minute, LVH, ST-T abnormalities suggestive of possible ischemia. Patient was given 1 dose of diltiazem 10 mg IV in the ER with improvement in the heart rate, and subsequently had spontaneous evangelical of sinus rhythm. Troponin x1 negative. NTi proBNP is elevated at 1580. TSH is elevated at 8.13. Chest x-ray unremarkable. Lower extremity venous Doppler negative for DVT. CT scan of the head negative for acute intracranial process. CT chest negative for PE or aortic dissection. CT chest reported Irregular spiculated soft tissue density in the right upper lobe; PET/CT images recommended for evaluation of possible right upper lobe malignancy versus scarring . Patient follows up with Dr. Velasco for a cardiovascul
[2020-11-17] MEDS: PANTOPRAZOLE 40 MG TABLET PO (09:05)
[2020-11-17] MEDS: CITALOPRAM HYDROBROMIDE 10 MG TABLET PO (09:05)
[2020-11-17] MEDS: ASPIRIN 81 MG ENTERIC TABLET PO (09:05)
[2020-11-17] MEDS: METOPROLOL SUCCINATE EXT REL 25 MG TABCR PO (09:05)
[2020-11-17] MEDS: LOSARTAN POTASSIUM 100 MG TABLET PO (09:06)
[2020-11-17] MEDS: FUROSEMIDE 20 MG TABLET PO (09:06)
[2020-11-17] MEDS: ENOXAPARIN 40 MG/0.4 ML SYRINGE SUB-Q (09:07)
[2020-11-17] MEDS: ALPRAZolam (*CRX) 0.5 MG TABLET PO (09:10)
[2020-11-17] MEDS: ACETAMINOPHEN 325 MG TABLET 650 MG PO (09:10)
--- NOTE | 2020-11-17 10:43 | PM.DS ---
DS: Admitting Diagnosis Admitting Diagnosis Admitting Diagnosis: Palpitations DS: Discharge Diagnosis Discharge Diagnosis (1) Chest pain: Code(s): R07.9 - Chest pain, unspecified Status: Acute Assessment and Plan: Chest pressure is likely related to AFib/RVR although she does state that it is occasionally worse with inspiration. Chest CTA was negative for pulmonary embolism. EKG did not demonstrate any acute ST changes and her troponin have been within normal limits. Pt denies chest pain today and is ready for discharge. (2) Atrial fibrillation with rapid ventricular response: Code(s): I48.91 - Unspecified atrial fibrillation Status: Acute Assessment and Plan: She has reverted to sinus rhythm and in fact at times sinus bradycardia after receiving IV diltiazem 10 milligrams x 1. (3) Abnormal finding on lung imaging: Code(s): R91.8 - Other nonspecific abnormal finding of lung field Status: Acute Assessment and Plan: Chest CT showed an irregularly spiculated soft tissue density in the right upper lobe. Outpatient PET/CT recommended to rule out malignancy versus scarring. (4) Weakness: Code(s): R53.1 - Weakness Status: Acute Assessment and Plan: Most likely related to cardiac dysrhythmia. (5) Chronic kidney disease, stage 3: Code(s): N18.3 - Chronic kidney disease, stage 3 (moderate) Status: Acute Assessment and Plan: Renal function is stable on review of previous labs. (6) Hypertension: Code(s): I10 - Essential (primary) hypertension Status: Acute Assessment and Plan: Blood pressures is better, pt has anxiety issues. (7) Anxiety: Code(s): F41.9 - Anxiety disorder, unspecified Status: Acute Assessment and Plan: Continue support citalopram and alprazolam as needed. (8) Urinary retention: Code(s): R33.9 - Retention of urine, unspecified Status: Resolved DS: Summary Hospital Course Hospital Course: Chest pressure is likely related to AFib/RVR although she does state that it is occasionally worse with inspiration. Chest CTA was negative for pulmonary embolism. EKG did not demonstrate any acute ST changes and her troponin have been within normal limits. Pt denies chest pain today and is ready for discharge. High Bp maybe related to anxiety only. Time Spent with Patient Time attestation: Total time spent providing and/or coordinating discharge services:40 minutes on day of discharge Exam Narrative: Exam Narrative: General: Well-developed elderly female Respiratory: Lungs are clear to auscultation bilaterally. Cardiovascular: Bradycardic with S1-S2. Gastrointestinal: Abdomen is protuberant and slightly tender to palpation over the distended bladder. Skin: Warm and dry. No rash or lesions on limited exam. Extremities: No cyanosis or clubbing. Neurological: Alert. Cranial nerves 2-12 are grossly intact. Psychiatric: Appropriate mood and affect. DS: Data Data Completed and Pending Labs on day of discharge: Labs from last 24 hours 11/17/20 11/17/20 11/17/20 04:26 04:26 04:26 WBC RBC Hgb Hct MCV MCH MCHC RDW Plt Count MPV Immature Gran % (Auto) Neut % (Auto) Lymph % (Auto) [place] % (Auto) Eos % (Auto) Baso % (Auto) Lymph # (Auto) [place] # (Auto) Eos # (Auto) Baso # (Auto) Abs Immat Gran (auto) Absolute Neuts (auto) Absolute Nucleated RBC Nucleated RBC % PT INR APTT D-Dimer Sodium Potassium Chloride Carbon Dioxide Anion Gap BUN Creatinine Estim Creat Clear Calc Estimated GFR Glucose Lactic Acid Calcium Magnesium Total Bilirubin AST ALT Alkaline Phosphatase Troponin I NT-Pro-B Natriuret Pep Total Protein Albumin Lipase TSH (Reflex) 8.130 H
== END 2020-11-17 11:20 | disposition home or self-care (01) ==
LOC: ANHED 13:22 → ANHIMU 20:42
PROVIDERS: Physician Assistant; Admitting Provider Family Medicine; Emergency Provider General Practice; PCP Family Medicine; Visit Provider Family Medicine
DX: I48.0 Paroxysmal atrial fibrillation (principal); R07.81 Pleurodynia; R91.8 Other nonspecific abnormal finding of lung field; R53.1 Weakness; R33.9 Retention of urine, unspecified; R60.0 Localized edema; R06.02 Shortness of breath; I35.1 Nonrheumatic aortic (valve) insufficiency; I12.9 Hypertensive chronic kidney disease with stage 1 through stage 4 chronic kidney disease, or unspecified chronic kidney disease; N18.30 Chronic kidney disease, stage 3 unspecified; E78.5 Hyperlipidemia, unspecified; F41.8 Other specified anxiety disorders; K21.9 Gastro-esophageal reflux disease without esophagitis; G47.33 Obstructive sleep apnea (adult) (pediatric)
CPT/HCPCS: 11720; 36415; 70450; 71045; 71275; 80053; 81003; 83605; 83690; 83735; 83880; 84439; 84443; 84480; 84484; 85025; 85380; 85610; 85730; 93005; 93970; 96372; 96374; 99285; A9270; G0378; J1650; Q9967

== ENCOUNTER 2020-11-18 13:49 | Observation (INO) | payer MEDICARE, SELFPAY ==
[2020-11-18] VITALS (12 sets, daily range): BP systolic 108–148; BP diastolic 53–99; PULSE 62–142; RESP 15–18; TEMP 36.1–36.5; O2SAT 97–98; BMI 23.8; BMI 27.5
--- NOTE | ~2020-11-18 | XR_ITS ---
EXAMINATION: XR chest 1V portable 11/18/2020 14:07 INDICATION: Chest palpitations PROCEDURE: AP portable chest COMPARISON: Comparison to multiple prior studies sequentially, with oldest reviewed study dated . FINDINGS: The lungs are clear. The cardiomediastinal silhouette is within normal limits. There are no pleural effusions. There is no pneumothorax suspected. IMPRESSION: 1: NO ACUTE CARDIOPULMONARY DISEASE. Reviewed, dictated and finalized at location A.
--- NOTE | 2020-11-18 13:53 | ECG_ITS ---
Measurements Intervals [place] Rate: 121 P: [place]: 0 QRS: -23 QRSD: 84 T: 130 QT: 326 QTc: 464 Interpretive Statements ATRIAL FIBRILLATION WITH RAPID VENTRICULAR RESPONSE LEFT VENTRICULAR HYPERTROPHY WITH ST-T CHANGE INFERIOR INFARCT, AGE INDETERMINATE BORDERLINE ST-T WAVE ABNORMALITY- ANTEROLATERAL LEADS ABNORMAL ECG Electronically Signed On 11-18-2020 13:57:56 CDT by Seamus Cowan D.O.
[2020-11-18 14:32] LABS: Basophils Absolute Auto 0.1 K/mm3 (0.0-0.1); Basophils Percent Auto 0.7 % (0.2-1.2); Eosinophils Absolute Auto 0.2 K/mm3 (0-0.3); Hematocrit 38.5 % (37.0-47.0); Hemoglobin 12.9 g/dL (12.0-15.0); Immature Granulocyte Absolute 0.02 K/mm3 (0.00-0.031); Immature Granulocyte Percent A 0.3 % (0-0.5); Lymphocytes Absolute Auto 1.81 K/mm3 (0.9-3.2); Mean Corpuscular HGB Conc 33.5 g/dl (32-36); Mean Corpuscular Hemoglobin 29.4 pg (26-34); Mean Corpuscular Volume 87.7 fl (80-100); Monocytes Absolute Auto 0.4 K/mm3 (0.1-0.6); Monocytes Percent Auto 5.7 % (2.6-8.5); Neutrophils Absolute Auto 4.7 K/mm3 (1.3-6.7); Neutrophils Percent Auto 65.3 % (45.5-73.1); Platelet Count Result 185 k/mm3 (150-375); Red Blood Count 4.39 M/mm3 (4.2-5.4); Red Cell Distribution Width 13.2 % (11.5-14.5); White Blood Count 7.2 K/mm3 (4.5-10.0)
[2020-11-18 14:42] LABS: Partial Thromboplastin Time 27.1 SECONDS (22.3-36.8); Prothrombin Time 13.9 Seconds (11.1-14.7)
[2020-11-18 14:46] LABS: Alanine Aminotransferase 14 U/L (4-35); Albumin Level 3.8 g/dL (3.5-5.1); Alkaline Phosphatase 72 U/L (38-126); Anion Gap 6 mmol/L (8-16); Aspartate Amino Transferase 26 U/L (14-36); Bilirubin,Total 0.6 mg/dL (0.2-1.3); Blood Urea Nitrogen 10 mg/dL (7-17); Carbon Dioxide 27 mmol/L (22-30); Chloride 109 mmol/L (98-107); Estimated CRCL calculation 25 ml/min; Estimated Glomerular Filt Rate 39; Glucose 129 mg/dL (65-105); Potassium 3.9 mmol/L (3.4-5.0); Sodium 142 mmol/L (137-145)
--- NOTE | 2020-11-18 14:48 | ED.ARRPALP ---
HPI - Arrhythmia/Palpitations General Chief Complaint: Arrhythmia/Palpitations Stated Complaint: RAPID HR Time Seen by Provider: 11/18/20 13:57 Source: patient, EMS and RN notes reviewed Mode of arrival: EMS Limitations: no limitations History of Present Illness HPI narrative: Patient is 80 years old white female presents with increased heart rate and shortness of breath started earlier today. History of paroxysmal atrial fibrillation, not on any anticoagulant medication because of frequent falls. Patient got discharged from the hospital yesterday for similar symptoms. Patient denies any fever, chills, nausea, vomiting, back pain, headache, focal neuro deficits. Related Data Home Medications Medication Instructions Recorded Confirmed melatonin 3 mg PO HS PRN 11/16/20 11/16/20 Allergies Allergy/AdvReac Type Severity Reaction Status Date / Time Penicillins Allergy Severe Hives Verified 11/04/20 09:56 nitrofurantoin Allergy Intermediate Hives Verified 11/04/20 09:56 [From Macrobid] Quinolones Allergy Mild Unknown Verified 11/04/20 09:56 cefprozil Allergy Unknown Unknown Verified 11/04/20 09:56 cefuroxime Allergy Unknown Unknown Verified 11/04/20 09:56 Cephalosporins Allergy Unknown Unknown Verified 11/04/20 09:56 erythromycin base Allergy Unknown Stomach Verified 11/04/20 09:56 cramps gatifloxacin Allergy Unknown Unknown Verified 11/04/20 09:56 metronidazole Allergy Unknown Unknown Verified 11/04/20 09:56 loratadine [From Claritin] AdvReac Jittery Verified 11/04/20 09:56 Review of Systems Review of Systems: Narrative: CONSTITUTIONAL: Denies fever, chills, or sweats. EYES: Denies visual changes, redness, or discharge. ENT: Denies rhinorrhea, congestion, sore throat, or otalgia. CARDIOVASCULAR: Denies chest pain, palpitations, or edema. RESPIRATORY: Denies cough or dyspnea. GASTROINTESTINAL: Denies abdominal pain, nausea, vomiting, or diarrhea. GENITOURINARY: Denies dysuria or hematuria. SKIN: Denies rash or itching. MUSCULOSKELETAL: Denies back pain, joint pain, or myalgia. NEUROLOGIC: Denies headache, numbness, or weakness. PSYCHIATRIC: Denies anxiety or depression. [facility] Past Medical History Medical History Anxiety Aortic valve regurgitation Moderate by echocardiogram in October 2018. Followed by Dr. Velasco. Arthritis Benzodiazepine dependence Bronchiectasis Prior imaging demonstrated bronchiectasis in bilateral lower lobes with chronic scarring. Chronic kidney disease, stage 3 Baseline creatinine between 1.20 and 1.40. Chronic midline low back pain with sciatica Dementia Reported by daughter, however the patient disputes this. Depression Diverticulitis Gastroesophageal reflux disease Hyperlipidemia Hypertension Nausea Obstructive sleep apnea Paroxysmal atrial fibrillation She has declined anticoagulation and antiarrhythmics previously but is now on metoprolol daily. She is followed by Dr. Velasco. Surgical History Surgical History History of appendectomy History of cardiac catheterization No known intervention. History of cataract surgery History of cholecystectomy Status post appendectomy Status post cataract extraction Status post hysterectomy Status post tubal ligation Family History Family History Father Acute myocardial infarction Family history of alcoholism Mother Family history of alcoholism Sibling Acute myocardial infarction Sibling Brain aneurysm Social History Social History Social History: The patient has been for 2+ years. She lives in [place] with her daughter and son-in-law. She has 3 daughters, 1 from an [place] at age 30, and the other 1 recently from complications of diabetes. She is a lifelong nonsmoker and denies alcohol and drug
[2020-11-18 14:58] LABS: NT Pro B Type Natriuretic Pept 482 PG/ML (5-100); Troponin I < 0.012 ng/mL (0.000-0.034)
[2020-11-18] MEDS: dilTIAZem HCl INJ 25 MG/5 ML VIAL 10 MG IV PUSH (15:17)
[2020-11-18] MEDS: ENOXAPARIN 80 MG/0.8 ML SYRINGE 70 MG SUB-Q (15:17)
[2020-11-18 16:17] LABS: Free T4 Free Thyroxine Reflex 0.83 ng/dL (0.78-2.19)
[2020-11-18 16:59] LABS: Total Triiodothyronine (T3) 0.92 NG/ML (0.97-1.69)
--- NOTE | 2020-11-18 16:59 | ADMGEN ---
This patient, Chiara Faith, was admitted to IMU Room 203-01. Patient/family oriented to hospital policies and general routines including ID bracelet, bed and alarms, visiting hours, pain management, procedures, bathroom and other care routines, personal items, smoking policy, room service/diet, and visiting hours. Information on how to activate the Rapid Response Team has been discussed. Patient/Family are encouraged to report perceived risks to care and to ask questions if they do not understand what they are told or what they should do.
--- NOTE | 2020-11-18 18:00 | PM.CNCAR ---
Assessment and Plan Assessment and plan (1) Atrial fibrillation with rapid ventricular response: Code(s): I48.91 - Unspecified atrial fibrillation Status: Acute Assessment and Plan: Patient with her 2nd admission to the hospital in 3 days for AFib RVR. ER physician felt that her anxiety and home situation may have contributed. She is taking metoprolol succinate 25 mg daily. She has declined anticoagulation. Heart rate seems to respond well to IV Cardizem on this admission and last admission she converted to NSR with IV Cardizem. I suggested we try sotalol but the patient does not want to take any of those heart medicines she heard about on TV that can cause heart attacks and cause people to , so declined sotalol loading. She actually wanted to not make any changes at all as she is adverse to change but I explained to her that what we are doing is not working and we need to do something different to prevent the next episode. Will start CArdizem 30 mg q 8 hours and discontinue Cardizem drip. (2) Benign hypertension: Code(s): I10 - Essential (primary) hypertension Status: Acute Assessment and Plan: Blood pressure is reasonably controlled. (3) Aortic valve regurgitation: Code(s): I35.1 - Nonrheumatic aortic (valve) insufficiency Status: Acute Assessment and Plan: Moderate by echo in 2019. (4) Chronic kidney disease, stage 3: Code(s): N18.3 - Chronic kidney disease, stage 3 (moderate) Status: Acute Assessment and Plan: Stable CKD (5) Anxiety: Code(s): F41.9 - Anxiety disorder, unspecified Status: Acute Assessment and Plan: Takes alprazolam History of Present Illness History of Present Illness Consult date/time: 11/18/20 18:00 Consult reason: atrial fibrillation Reason For Visit: Paroxysmal A fib with RVR, anxiety Narrative: Chiara Faith is an 80-year-old female with a history of paroxysmal atrial fibrillation who I was asked to see at the request of the hospitalist for recurrent atrial fibrillation. The patient normally is followed by Dr. Velasco for her PAF. She was hospitalized on 11/16/2020 with weakness, palpitations, SOB, and atypical chest discomfort and found to have be in atrial fibrillation RVR. She converted to sinus rhythm with IV Cardizem. She had ischemic appearing EKG changes but her troponins were all negative. Outpatient ischemia evaluation to be considered. She was discharged on her usual medications yesterday to follow up with Dr. Velasco as scheduled on November 24, to talk about other medications for AFib and whether not to start a NOAC. She had not been anticoagulated because of a history of falls and her personal preference. She had a spiculated density in the right upper lobe and further follow-up was recommended as well. The patient did well initially but suddenly this morning her heart started to race and she felt short of breath, and ?not right.? She was worried she might have a heart attack. No chest pain or dizziness. Came back to the emergency room today with AFib RVR, heart rates 120-150s. She was started on a Cardizem drip at 5 milligrams/hour and she remains in atrial fibrillation with heart rates of 60-100 beats per minute. Mrs. Faith was unable to tell me at all how frequent these episodes are. She feels a lot of stress in her life and thinks stress aggravates her arrhythmia. Patient has chronic [place] but no exertional chest discomfort. She is afraid of using an anticoagulant because she is afraid of bleeding. Her last fall was 2 weeks ago when she stood on a chair to recheck did high shelf and fell off. She reports a history of 3 strokes. She states she has
[2020-11-18 18:40] LABS: Troponin I < 0.012 ng/mL (0.000-0.034)
--- NOTE | 2020-11-18 19:00 | PM.IMHP ---
H&P: HPI History of Present Illness Date/Time: 11/18/20 19:00 Chief Complaint: Palpitations. Narrative: This is an 80-year-old female with paroxysmal atrial fibrillation, hypertension, hyperlipidemia, GERD, and anxiety who presented to the emergency department earlier today for evaluation of palpitations. She is known to myself and the hospitalist service and in fact I admitted her to the hospital just 2 days ago when she presented in atrial fibrillation with rapid ventricular response. After receiving 1 dose of diltiazem 10 milligrams IV she converted to sinus rhythm and remained in sinus rhythm or sinus bradycardia throughout the following 24 hours. She was seen in consultation by Dr. Hartman who made no changes to her metoprolol. He recommended anticoagulation however she has continued to refuse that over the years. In any event, she was discharged yesterday and was feeling just fine. This morning, not long after eating breakfast she once again started to feel her heart racing and beating irregularly, prompting her to come in for evaluation. She has been started on a diltiazem drip with improvement in her rate and she has no complaints at this time. Specifically she denies chest pain, pleuritic pain, and palpitations. No sweats, nausea, or vomiting. She states compliance with her home medication. She does not drink much caffeine or alcohol at home. She uses her rescue inhaler maybe 1 to 2 times per day and denies that it causes her to feel tachycardic. Review of Systems Review of Systems: Narrative: Twelve systems were reviewed with pertinent positives and negatives as per HPI. No fever, chills, or sweats. She denies syncope in near-syncope. Occasionally she will feel a bit lightheaded if her heart rate gets too fast or too slow. She is hesitant to take anticoagulants for her AFib as ?it makes me bleed too much.? She apparently has a history of falls as well but none recently. She denies sleep apnea however it has been documented in her EMR for many years. Except as documented, all other systems were reviewed and are negative. [facility] Past Medical History Medical History (Updated 11/18/20 @ 21:51 by Alba Jamil PA-C) Anxiety Aortic valve regurgitation Moderate by echocardiogram in October 2018. Followed by Dr. Velasco. Arthritis Benzodiazepine dependence Bronchiectasis Prior imaging demonstrated bronchiectasis in bilateral lower lobes with chronic scarring. Chronic kidney disease, stage 3 Baseline creatinine between 1.20 and 1.40. Chronic midline low back pain with sciatica Dementia Reported by daughter, however the patient disputes this. Depression Diverticulitis Gastroesophageal reflux disease Hyperlipidemia Hypertension Nausea Obstructive sleep apnea Paroxysmal atrial fibrillation She has declined anticoagulation and antiarrhythmics previously but is now on metoprolol daily. She is followed by Dr. Velasco. Surgical History Surgical History History of appendectomy History of cardiac catheterization No known intervention. History of cataract surgery History of cholecystectomy Status post appendectomy Status post cataract extraction Status post hysterectomy Status post tubal ligation Family History Family History Father Acute myocardial infarction Family history of alcoholism Mother Family history of alcoholism Sibling Acute myocardial infarction Sibling Brain aneurysm Daughter Bowel perforation July 2020 sounds like it may have been a bowel perforation related to hernia and possibly some diabetic problems.. Daughter Heart disease age 35 of heart attack Social History Social History Social History: The patient has been since 2017. She lives in [place] with her daughter and son-in-law.
[2020-11-18] MEDS: dilTIAZem HCL 30 MG TABLET PO (21:32)
--- NOTE | 2020-11-18 22:43 | PCRCNOTE ---
pt refused apnea study after stating that she was too claustrophobic to wear the nasal cannula; The RN aware
[2020-11-18] MEDS: MELATONIN 3 MG TABLET PO (22:50)
[2020-11-18] MEDS: ALPRAZolam (*CRX) 0.5 MG TABLET PO (22:50)
[2020-11-19] VITALS (15 sets, daily range): BP systolic 113–152; BP diastolic 46–64; PULSE 40–73; RESP 16–18; TEMP 35.8–36.5; O2SAT 95–100; BMI 28.5
--- NOTE | 2020-11-19 00:30 | ECG_ITS ---
Measurements Intervals [place] Rate: 49 P: 14 [place]: 257 QRS: -28 QRSD: 80 T: 32 QT: 490 QTc: 446 Interpretive Statements SINUS BRADYCARDIA WITH FIRST DEGREE AV BLOCK LOW QRS VOLTAGE IN PRECORDIAL LEADS VOLTAGE CRITERIA FOR LVH ABNORMAL ECG Electronically Signed On 11-19-2020 7:32:36 CDT by Seamus Cowan D.O.
[2020-11-19] MEDS: ALPRAZolam (*CRX) 0.5 MG TABLET PO ×2 (08:50→20:25)
[2020-11-19] MEDS: LOSARTAN POTASSIUM 100 MG TABLET PO (08:51)
[2020-11-19] MEDS: PANTOPRAZOLE 40 MG TABLET PO (08:51)
[2020-11-19] MEDS: FUROSEMIDE 20 MG TABLET PO (08:51)
[2020-11-19] MEDS: ASPIRIN 81 MG ENTERIC TABLET PO (08:51)
[2020-11-19] MEDS: CITALOPRAM HYDROBROMIDE 10 MG TABLET PO (08:51)
--- NOTE | 2020-11-19 12:18 | PCNSR ---
On 11/19/20, the student, Doris Pendleton, provided care and completed [facility] documentation on this patient. I have reviewed the student's documentation and agree with the findings.
[2020-11-19] MEDS: dilTIAZem HCL 30 MG TABLET PO (14:15)
--- NOTE | 2020-11-19 15:02 | PM.PNCARD ---
Progress Note: A&P Assessment and Plan (1) Atrial fibrillation with rapid ventricular response: Code(s): I48.91 - Unspecified atrial fibrillation Status: Acute Assessment and Plan: Patient with her 2nd admission to the hospital in 3 days for AFib RVR. She was taking metoprolol succinate 25 mg daily. She has declined anticoagulation. Declined sotalol. Bradycardic last night. 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 Discussed the possibility that, if she continues to have paroxysmal AFib RVR, she may need pacemaker implant for ultimate control of PAF. Change Cardizem to: 30 mg b.i.d.. (2) Benign hypertension: Code(s): I10 - Essential (primary) hypertension Status: Acute Assessment and Plan: Blood pressure is reasonably controlled. (3) Aortic valve regurgitation: Code(s): I35.1 - Nonrheumatic aortic (valve) insufficiency Status: Acute Assessment and Plan: Moderate by echo in 2019. (4) Chronic kidney disease, stage 3: Code(s): N18.3 - Chronic kidney disease, stage 3 (moderate) Status: Acute Assessment and Plan: Stable CKD (5) Anxiety: Code(s): F41.9 - Anxiety disorder, unspecified Status: Acute Assessment and Plan: Takes alprazolam Subjective Date/time seen: 11/19/20 15:02 Interval history: Follow-up for paroxysmal atrial fibrillation. Date of service 11/19/2020: Patient's IV Cardizem was discontinued and she was given 1 dose of p.o. Cardizem 30 mg. She converted to sinus rhythm, Then became bradycardic with heart rate in the 40s so further Cardizem was held. Today she is feeling well, sitting up in a chair, no palpitations, shortness of breath or chest pain. Review of Systems Constitutional: Constitutional: Denies difficulty sleeping ENT: Denies epistaxis Cardiovascular: Cardiovascular: Denies chest pain, Denies pedal edema and Denies lightheadedness Respiratory: Respiratory: Denies dyspnea Gastrointestinal: Gastrointestinal: Denies abdominal pain Genitourinary: Genitourinary: Denies hematuria Musculoskeletal: Musculoskeletal: Reports arthralgias Integumentary/Breasts: Skin/Breast: Denies rash Neurologic: Denies confusion Psychiatric: Psychiatric: Reports no additional psychiatric complaints Exam Const: General: comfortable and no acute distress HENMT: Mouth: Yes moist mucous membranes Eyes: EOM: EOMs intact bilaterally Neck: Neck: supple Resp: Effort & Inspection: normal respiratory effort Auscultation: rales (Rales in bases) Cardio: Rate: regular rate Rhythm: regular rhythm GI: GI Palp: Yes Soft to palpation Skin: General skin exam: no rashes or lesions noted Neuro: Cognition (Neuro): normal cognition Motor exam (neuro): Normal motor muscle tone present throughout Extrem: General: no edema and no pedal edema Psych: Mental Status: mental status grossly normal Objective Data Vital Signs Vital Signs: Vital Signs - 24 hr 11/18/20 15:17 11/18/20 15:18 11/18/20 16:02 Temperature Pulse Rate 126 H 126 H 87 Respiratory Rate 15 18 Blood Pressure 108/58 L 108/58 L 134/68 Pulse Oximetry 98 98 11/18/20 16:42 11/18/20 17:00 11/18/20 17:14 Temperature 97.7 F 97.7 F Pulse Rate 87 62 62 Respiratory Rate 16 16 Blood Pressure 148/70 H 148/70 H Pulse Oximetry 98 11/18/20 18:00 11/18/20 20:00 11/18/20 22:00 Temperature 96.9 F L Pulse Rate 85 81 71 Respiratory Rate 16 Blood Pressure 132/70 Pulse Oximetry 98 98 11/18/20 22:30 11/18/20 23:32 11/19/20 00:00 Temperature 97.4 F L Pulse Rate 63 103 H 53 L Respiratory Rate 16 Blood Pressure 136/53 L Pulse Oximetry 97 11/19/20 02:00 11/19/20 04
[2020-11-19] MEDS: LOVASTATIN 20 MG TABLET 40 MG PO (17:20)
--- NOTE | 2020-11-19 18:24 | PM.IMPN ---
Progress Note: A&P Assessment and Plan (1) Atrial fibrillation with rapid ventricular response: Code(s): I48.91 - Unspecified atrial fibrillation Status: Acute Assessment and Plan: Readmission for AFib RVR within 48 hours of discharge for same diagnosis Consult placed to Dr. Sparrow (cardiology) Cardizem drip with transition to Cardizem p.o.. Patient with poor tolerance to this and immediately became bradycardic dose has been decreased. We will need to monitor patient overnight to assess medication tolerance and proper control of atrial fibrillation. Continue continuous cardiac monitoring Patient continues to decline full-dose anticoagulation for her atrial fibrillation and stroke prevention. However she does agree to speak with her primary care physician to reassess her need for this. Patient has been suffering frequent falls. Although she is at higher risk for bleeding with anticoagulation this could be secondary to intermittent bradycardia/arrhythmia. Anticipate discharge home tomorrow with order for Holter monitor. (2) Obstructive sleep apnea: Code(s): G47.33 - Obstructive sleep apnea (adult) (pediatric) Status: Acute Assessment and Plan: This is been documented in her EMR however she denies symptoms of. If she does have sleep apnea this may be contributing to her tachyarrhythmia. (3) Chronic kidney disease, stage 3: Code(s): N18.3 - Chronic kidney disease, stage 3 (moderate) Status: Acute Assessment and Plan: Creatinine remains stable on review of previous labs. (4) Hypertension: Code(s): I10 - Essential (primary) hypertension Status: Acute Assessment and Plan: Blood pressures were reviewed and they are reasonably controlled. Continue antihypertensives adjustments per cardiology and monitor. (5) Anxiety: Code(s): F41.9 - Anxiety disorder, unspecified Status: Acute Assessment and Plan: Continue alprazolam and citalopram. Subjective Date/time seen: 11/19/20 14:24 Patient doing okay she has no complaints at the time of my interview. We discussed at length her concerns about taking anticoagulation as well as placement of any type of cardiac pacemaker device. Patient understands that we are going to attempt chemical medical therapy to prevent her heart rate from flipping into the atrial fibrillation with RVR however if this is unsuccessful or she has noted not to tolerate the medication as it is causing bradycardia she will be presented with the option of whether not to proceed with a device placement. Patient states she is in agreement to have a device if medical therapy fails. This has been reviewed with cardiology all recommendations from health services information specialist appreciated. Review of Systems Review of Systems: All systems reviewed & are unremarkable except as noted in HPI and below Exam Narrative: Exam Narrative: GEN: NAD, AAOx3, cooperative HEENT: NCAT, MMM, EOMI Neck: no JVD Heart: S1S2 bradycardic Lungs: CTA B/l Abd: soft, NT, ND, bowel sounds normoactive Ext: moves all, no cyanosis, no clubbing, no edema Neuro: No focal motor or sensory neurological findings, cranial nerves intact Psych: Mood and affect congruent Objective Data Vital Signs Vital Signs: Vital Signs - 24 hr 11/18/20 20:00 11/18/20 22:00 11/18/20 22:30 Temperature 96.9 F L Pulse Rate 81 71 63 Respiratory Rate 16 Blood Pressure 132/70 Pulse Oximetry 98 98 11/18/20 23:32 11/19/20 00:00 11/19/20 02:00 Temperature 97.4 F L Pulse Rate 103 H 53 L 48 L Respiratory Rate 16 Blood Pressure 136/53 L Pulse Oximetry 97 11/19/20 04:00 11/19/20 06:00 11/19/20 08:00 Temperature 97.2 F L 97.7 F Pulse Rate 58 L 40 L 44 L Respiratory Rate 16 18 Blood Pressure 113/64 145/46 H Pulse Oximetry 98 98 11/19/20 08:42 11/19/20 10:00 11/19/20 12:00 Temperature 97.5 F L Pulse Rate 54 L 49 L 46 L Respiratory Rate 16
[2020-11-19] MEDS: MELATONIN 3 MG TABLET PO (21:18)
[2020-11-20] VITALS (8 sets, daily range): BP systolic 122–172; BP diastolic 47–66; PULSE 41–72; RESP 16–20; TEMP 36.4–36.6; O2SAT 95–97
[2020-11-20] MEDS: ALPRAZolam (*CRX) 0.5 MG TABLET PO (08:02)
[2020-11-20] MEDS: dilTIAZem HCL 30 MG TABLET PO (08:02)
[2020-11-20] MEDS: PANTOPRAZOLE 40 MG TABLET PO (08:03)
[2020-11-20] MEDS: LOSARTAN POTASSIUM 100 MG TABLET PO (08:03)
[2020-11-20] MEDS: CITALOPRAM HYDROBROMIDE 10 MG TABLET PO (08:03)
[2020-11-20] MEDS: ASPIRIN 81 MG ENTERIC TABLET PO (08:03)
[2020-11-20] MEDS: FUROSEMIDE 20 MG TABLET PO (08:03)
--- NOTE | 2020-11-20 09:28 | PM.PNCARD ---
Progress Note: A&P Additional Plan 80-year-old woman with: Symptomatic paroxysmal atrial fibrillation and also asymptomatic element of what appears to be sick sinus syndrome with tendency to have sinus bradycardia when she is in sinus rhythm. Challenging situation since the patient is declining advancing to a more therapeutic antiarrhythmic drug. She has been placed on diltiazem and had a long discussion with her about this such that diltiazem generally will not keep her out of atrial fibrillation but will blood her heart rate response when she is in atrial fib. She is consistent with her decision to decline advancing antiarrhythmic therapy. Several options would be low-dose sotalol, flecainide or Multaq. She does not want to take any of these agents. She also is consistent in her decision to decline anticoagulation. This has been her opinion on this for a long time and I do not see the need to keep brief visiting this as we go forward. After a long discussion the decision is to continue her on diltiazem and follow this longitudinally. She has an appointment with me in the office next week for follow-up. At this point there is no cardiac reason she needs to stay in the hospital. I did tell her that if she has symptomatic episodes of atrial fibrillation at home this would not be unexpected and if they are brief and self-limited do not have to result in the need to hospitalize her repeatedly especially if she is not agreeable to more aggressive medication. Freddie Velasco MD [facility] Subjective Date/time seen: Date of service: 11/20/20 09:28 Interval history: Follow-up visit in this 80-year-old woman with: Paroxysmal atrial fibrillation with symptomatic palpitations and dizziness which she has had a couple of recent recurrences prompting admissions to the hospital. Patient is currently in sinus rhythm and is asymptomatic. She is taking oral diltiazem for this. She has had multiple discussions with myself, my partners and again myself this morning regarding the recommendation to attempt more aggressive antiarrhythmic medication. She is resistant to this fearful of the risks of proarrhythmia. She also for a long time has been declining the option of systemic anticoagulation. Exam Const: General: comfortable and no acute distress Other: Elderly lady seated in the bedside chair eating breakfast no distress HENMT: Mouth: Yes moist mucous membranes Eyes: Sclera: sclerae normal Pupils: Equal, round and reactive pupils present Neck: Neck: supple and no JVD Thyroid: thyroid normal Resp: Effort & Inspection: normal respiratory effort Auscultation: clear to auscultation bilaterally Cardio: Rate: regular rate Rhythm: regular rhythm Other: No murmur no gallop GI: GI Palp: Yes Soft to palpation Auscultation: normal bowel sounds Neuro: Cognition (Neuro): normal cognition Extrem: General: normal to inspection Objective Data Vital Signs Vital Signs: Vital Signs - 24 hr 11/19/20 10:00 11/19/20 12:00 11/19/20 12:30 Temperature 36.4 C L Pulse Rate 49 L 46 L 51 L Respiratory Rate 18 Blood Pressure 135/49 L Pulse Oximetry 100 11/19/20 14:00 11/19/20 16:00 11/19/20 16:30 Temperature 35.8 C L Pulse Rate 55 L 55 L 60 Respiratory Rate 18 Blood Pressure 132/52 L Pulse Oximetry 97 11/19/20 18:00 11/19/20 20:00 11/19/20 22:00 Temperature 36.1 C L Pulse Rate 53 L 50 L 50 L Respiratory Rate 16 Blood Pressure 152/60 H Pulse Oximetry 100 11/20/20 00:00 11/20/20 01:50 11/20/20 04:00 Temperature 36.4 C L 36.6 C Pulse Rate 42 L 43 L 56 L Respiratory Rate 16 16 Blood Pressure 129/47 L 138/50 L Pulse Oximetry 97 97 11/20/20 05:43 11/20/20 08:00 Temperature Pulse Rate 41 L 62 Respiratory Rate 20 Blood Pressure 172/66 H Pulse Oximetry Intake/Output Intake/Output: Intake & Output 11/17/20 11/18/20 11/19/20 11/20/20 23:59 23:59 23:59 23:59 Intake Total 576 1540 400 Out
--- NOTE | 2020-11-20 09:46 | PM.DS ---
DS: Admitting Diagnosis Admitting Diagnosis Admitting Diagnosis: afib RVR YOSI CKD3 anxiety HTN DS: Discharge Diagnosis Discharge Diagnosis (1) Paroxysmal atrial fibrillation: Code(s): I48.0 - Paroxysmal atrial fibrillation Status: Acute Assessment and Plan: (2) CKD (chronic kidney disease) stage 3, GFR 30-59 ml/min: Code(s): N18.3 - Chronic kidney disease, stage 3 (moderate) Status: Acute (3) Hypertension: Code(s): I10 - Essential (primary) hypertension Status: Acute (4) Obstructive sleep apnea: Code(s): G47.33 - Obstructive sleep apnea (adult) (pediatric) Status: Acute (5) Anxiety: Code(s): F41.9 - Anxiety disorder, unspecified Status: Acute DS: Summary Hospital Course Reason for hospitalization: afib rvr Hospital Course: 80-year-old female with paroxysmal atrial fibrillation admitted for the 2nd time within a 48 hour. For atrial fibrillation with RVR. Patient very resistant to medical therapy however she did agree to be discharged home on Cardizem. Patient was a significant bradycardia when 1st administered Cardizem and therefore dosing was decreased at prior to discharge. Patient responded appropriately to medical therapy and heart rate was controlled at time of discharge with no further episodes of atrial fibrillation. She was counseled extensively that this would not be the most appropriate treatment for her however she declined all other options. Patient is discharged home in stable condition with indications of follow-up with cardiology within 2 weeks and with her primary care physician for ongoing care. Status at Discharge Functional status at discharge: independent ambulation Overall status at discharge: patient is progressing back to baseline Time Spent with Patient Time attestation: Total time spent providing and/or coordinating discharge services: Greater than 30 minutes spent for this encounter Exam Narrative: Exam Narrative: GEN: NAD, AAOx3, cooperative HEENT: NCAT, MMM, EOMI Neck: no JVD Heart: S1S2 RRR Ext: moves all, no cyanosis, no clubbing, no edema Neuro: No focal neurological deficits, CN intact Psych: mood and affect congruent Discharge Plan Discharge Attending physician on discharge: Torrie Prado Consulting providers: Hanny Sparrow Discharging Clinician: Torrie Prado Anticipated Discharge Date/Time: 11/20/20 09:43 Patient Disposition: Home, Self-Care Activity: as tolerated Diet: heart healthy Discharge Instructions: follow up w PCP and Cardiology as directed Patient Instructions: Antibiotic Form, A-fib (Atrial Fibrillation) (GEN), Safe Use of Anticoagulants (GEN) Stand Alone Forms: General Discharge Information Follow-up/Referrals: Ulises Guido MD [Primary Care Provider] - Hanny Sparrow MD [Physician] - (see Cardiology within 2 weeks ) Discharge Medications: New diltiazem HCl 120 mg Capsule,Extended Release 24 Hr 120 mg PO QAM Qty: 90 RF: 0 Continued albuterol sulfate 90 mcg/actuation HFA aerosol inhaler 2 inh INHALATION Q4H PRN (Reason: shortness of breath or wheezing) Qty: 6.7 RF: 11 melatonin 3 mg Capsule 3 mg PO HS PRN (Reason: Insomnia) RF: 0 alprazolam 0.5 mg tablet 0.5 mg PO BID RF: 0 omeprazole 20 mg capsule,delayed release(DR/EC) 20 mg PO DAILY RF: 0 hydroxyzine pamoate 25 mg capsule 25 mg PO TID PRN (Reason: Anxiety) RF: 0 aspirin [Adult Aspirin Regimen] 81 mg tablet,delayed release (DR/EC) 81 mg PO DAILY Qty: 90 RF: 0 losartan 100 mg tablet 100 mg PO DAILY Qty: 90 RF: 3 lovastatin 40 mg tablet 40 mg PO QPM Qty: 90 RF: 3 furosemide 20 mg tablet 20 mg PO QAM Qty: 90 RF: 1 citalopram 10 mg tablet 10 mg PO DAILY Qty: 90 RF: 0 Held metoprolol succinate 25 mg tablet extended release 24 hr 25 mg PO DAILY RF: 0 Hold Instructions: until seen by cardiology Date of admiss
[2020-11-20] MEDS: hydrOXYzine HCL 25 MG TABLET PO (10:32)
== END 2020-11-20 13:02 | disposition home or self-care (01) ==
LOC: ANHED 14:51 → ANHIMU 15:39
PROVIDERS: Admitting Provider Family Medicine; Emergency Provider Emergency Medicine; PCP Family Medicine; Visit Provider Hospitalist
DX: I48.91 Unspecified atrial fibrillation (principal); I12.9 Hypertensive chronic kidney disease with stage 1 through stage 4 chronic kidney disease, or unspecified chronic kidney disease; N18.30 Chronic kidney disease, stage 3 unspecified; F41.9 Anxiety disorder, unspecified; K21.9 Gastro-esophageal reflux disease without esophagitis; G47.33 Obstructive sleep apnea (adult) (pediatric); R06.02 Shortness of breath
CPT/HCPCS: 36415; 71045; 80053; 83880; 84439; 84443; 84480; 84484; 85025; 85610; 85730; 93005; 96365; 96366; 96367; 96372; 99285; A9270; G0378; J0131; J1650

== ENCOUNTER 2021-05-10 18:51 | Emergency (ER) | payer MEDICARE, SELFPAY ==
[2021-05-10 19:13] VITALS: BP 153/101; PULSE 95; RESP 16; TEMP 36.4; O2SAT 98
== END 2021-05-10 20:32 | disposition left against medical advice (07) ==
PROVIDERS: PCP Family Medicine
DX: R06.02 Shortness of breath (principal)
CPT/HCPCS: 99199

== ENCOUNTER 2021-06-24 10:16 | Outpatient (CLI) | payer MEDICARE, SELFPAY ==
--- NOTE | ~2021-06-24 | CT_ITS ---
EXAMINATION: CT diagnostic chest wo con DATE: 06/24/2021 10:48 INDICATION: Other nonspecific abnormal finding of the lung field, shortness of breath and cough TECHNIQUE: Computed tomography (CT) of the 11/16/2020 was performed without intravenous contrast. The dose-length product (DLP) was 103.11 mGy-cm. Automated exposure control and iterative reconstruction technique were employed. COMPARISON: 11/16/2020, 04/19/2019, 02/03/2019 FINDINGS: There is groundglass opacity of the right upper lobe with air bronchograms and a 2.0 x 1.2 cm solid component. This is slightly increased in size since the recent comparison but demonstrates s low interval increase since the 04/19/2019 comparison. There is a 1.3 x 1.1 cm nodule in the medial ri ght upper lobe on image 33. There is a stable 4 mm nodule in the left lower lobe. There is no pleural effusion or pneumothorax. No pathologically enlarged thoracic lymph nodes are identified. The heart size is normal. There is calcified coronary artery atherosclerosis. There is severe thoracic spondylo sis. The gallbladder is surgically absent. IMPRESSION: 1. Part solid nodule of the right upper lobe with slow increase in size. Further evaluation with PET/ CT or biopsy is recommended. Reviewed, dictated and finalized at location A. IMPRESSION: 1. Part solid nodule of the right upper lobe with slow increase in size. Furthe r evaluation with PET/CT or biopsy is recommended.
== END 2021-06-24 10:17 ==
LOC: MICIMG 10:17
PROVIDERS: PCP Family Medicine; Visit Provider Physician Assistant Medical
DX: R91.8 Other nonspecific abnormal finding of lung field (principal)
CPT/HCPCS: 71250

== ENCOUNTER 2021-07-11 14:44 | Emergency (ER) | payer MEDICARE, SELFPAY ==
--- NOTE | ~2021-07-11 | XR_ITS ---
EXAMINATION: XR chest 2V DATE: 07/11/2021 15:41 INDICATION: Weakness. Atrial fibrillation. TECHNIQUE: Frontal and lateral views of the chest were obtained. COMPARISON: Chest single view 11/18/2020, chest 2 views 10/26/2019, chest CT 06/24/2021, 11/16/2020 FINDINGS: There is a nodule in right upper lobe. No pleural effusion or pneumothorax. The heart size is normal. Surgical clips in the right upper quadrant are likely from cholecystectomy. IMPRESSION: 1. Stable nodule in right lung upper lobe suspicious for primary bronchogenic carcinoma. CT-guided bi opsy is recommended. Reviewed, dictated and finalized at location A. [employer] IMPRESSION: 1. Stable nodule in right lung upper lobe suspicious for primary bronchogenic c arcinoma. CT-guided biopsy is recommended.
[2021-07-11 14:53] VITALS: BP 163/69; PULSE 91; RESP 18; TEMP 36.3; O2SAT 98
--- NOTE | 2021-07-11 15:03 | ECG_ITS ---
Measurements Intervals [place] Rate: 87 P: 24 FL: 214 QRS: -13 QRSD: 85 T: 51 QT: 365 QTc: 439 Interpretive Statements SINUS RHYTHM WITH FIRST DEGREE AV BLOCK ATRIAL PREMATURE COMPLEX LOW QRS VOLTAGE IN PRECORDIAL LEADS BASELINE ARTIFACT- II, III, AVR, AVL, AVF, V3 ABNORMAL ECG Electronically Signed On 07-11-2021 20:08:46 GUEST RELATIONS REPRESENTATIVE by Seamus Cowan D.O.
[2021-07-11 15:08] VITALS: BP 153/65; PULSE 84; RESP 17; O2SAT 99
[2021-07-11 15:16] VITALS: BP 156/69; PULSE 84; RESP 19; O2SAT 99
--- NOTE | 2021-07-11 15:21 | ED.WEAKNESS ---
HPI - Weakness General Chief complaint: Weakness Stated complaint: nausea, weakness Time Seen by Provider: 07/11/21 15:07 Source: patient History of Present Illness HPI Narrative: Patient presents with weakness and nausea. Patient reports she has felt weak for the past month. She also reports she will wake up and feel nauseous at times. She denies any emesis or diarrhea. She denies any focal areas of pain such as chest pain. She reports she always has shortness of breath has not had any acute change in her baseline symptoms. Patient has not noted any acute change in her symptoms this morning but still wanted to be evaluated. Denies recent fevers, cough, congestion. She denies any focal abdominal pain. She denies any urinary symptoms Related Data Home Medications Medication Instructions Recorded Confirmed omeprazole 20 mg capsule,delayed 20 mg PO DAILY 06/04/21 06/04/21 release Allergies Allergy/AdvReac Type Severity Reaction Status Date / Time Penicillins Allergy Severe Hives Verified 06/04/21 10:21 nitrofurantoin Allergy Intermediate Hives Verified 06/04/21 10:21 [From Macrobid] Quinolones Allergy Mild Unknown Verified 06/04/21 10:21 cefprozil Allergy Unknown Unknown Verified 06/04/21 10:21 cefuroxime Allergy Unknown Unknown Verified 06/04/21 10:21 Cephalosporins Allergy Unknown Unknown Verified 06/04/21 10:21 erythromycin base Allergy Unknown Stomach Verified 06/04/21 10:21 cramps gatifloxacin Allergy Unknown Unknown Verified 06/04/21 10:21 metronidazole Allergy Unknown Unknown Verified 06/04/21 10:21 loratadine [From Claritin] AdvReac Jittery Verified 06/04/21 10:21 Review of Systems Review of Systems: CONSTITUTIONAL: Denies fever, chills, or sweats. EYES: Denies visual changes, redness, or discharge. ENT: Denies rhinorrhea, congestion, sore throat, or otalgia. CARDIOVASCULAR: Denies chest pain, palpitations, or edema. RESPIRATORY: Denies cough or dyspnea. GASTROINTESTINAL: Denies abdominal pain, nausea, vomiting, or diarrhea. GENITOURINARY: Denies dysuria or hematuria. SKIN: Denies rash or itching. MUSCULOSKELETAL: Denies back pain, joint pain, or myalgia. NEUROLOGIC: Denies headache, numbness, dizziness, or weakness. PSYCHIATRIC: Denies anxiety or depression. All systems reviewed & are unremarkable except as noted in HPI and below PMFSH Past Medical History Medical History Anxiety Aortic valve regurgitation Moderate by echocardiogram in October 2018. Followed [address] Dr. Velasco. Arthritis Benzodiazepine dependence BMI 28.0-28.9,adult Bronchiectasis Prior imaging demonstrated bronchiectasis in bilateral lower lobes with chronic scarring. Chronic kidney disease, stage 3 Baseline creatinine between 1.20 and 1.40. Chronic midline low back pain with sciatica Dementia Reported by daughter, however the patient disputes this. Depression Diverticulitis Gastroesophageal reflux disease Hyperlipidemia Hypertension Nausea Obstructive sleep apnea Paroxysmal atrial fibrillation She has declined anticoagulation and antiarrhythmics previously but is now on metoprolol daily. She is followed by Dr. Velasco. Surgical History Surgical History History of appendectomy History of cardiac catheterization No known intervention. History of cataract surgery History of cholecystectomy History of tooth extraction Status post appendectomy Status post cataract extraction Status post hysterectomy Status post tubal ligation Family History Family History Father Acute myocardial infarction Family history of alcoholism Mother Family history of alcoholism Sibling Acute myocardial infarction Sibling Brain aneurysm Daughter Bowel perforation July 2020 sounds like it may have been a bowel perforation related to
[2021-07-11 15:30] LABS: Basophils Percent Auto 0.4 % (0.2-1.2); Eosinophils Absolute Auto 0.2 K/mm3 (0-0.3); Eosinophils Percent Auto 2.4 % (0-4.4); Hematocrit 38.3 % (37.0-47.0); Hemoglobin 12.6 g/dL (12.0-15.0); Immature Granulocyte Absolute 0.03 K/mm3 (0.00-0.031); Immature Granulocyte Percent A 0.3 % (0-0.5); Lymphocytes Absolute Auto 2.26 K/mm3 (0.9-3.2); Lymphocytes Percent Auto 24.7 % (18.3-44.2); Mean Corpuscular HGB Conc 32.9 g/dl (32-36); Mean Corpuscular Volume 94.3 fl (80-100); Mean Platelet Volume 10.2 fl (7.4-10.4); Monocytes Absolute Auto 0.7 K/mm3 (0.1-0.6); Monocytes Percent Auto 7.9 % (2.6-8.5); Neutrophils Absolute Auto 5.9 K/mm3 (1.3-6.7); Neutrophils Percent Auto 64.3 % (45.5-73.1); Platelet Count Result 208 k/mm3 (150-375); Red Blood Count 4.06 M/mm3 (4.2-5.4); Red Cell Distribution Width 13.6 % (11.5-14.5); White Blood Count 9.2 K/mm3 (4.5-10.0)
[2021-07-11 15:42] LABS: Alanine Aminotransferase 16 U/L (4-35); Albumin Level 4.3 g/dL (3.5-5.1); Alkaline Phosphatase 92 U/L (38-126); Anion Gap 9 mmol/L (8-16); Aspartate Amino Transferase 25 U/L (14-36); Bilirubin,Total 0.6 mg/dL (0.2-1.3); Blood Urea Nitrogen 11 mg/dL (7-17); Calcium 9.7 mg/dL (8.4-10.2); Carbon Dioxide 24 mmol/L (22-30); Chloride 107 mmol/L (98-107); Estimated CRCL calculation 29 ml/min; Estimated Glomerular Filt Rate 47; Glucose 116 mg/dL (65-110); Magnesium 1.8 mg/dL (1.6-2.3); Potassium 3.7 mmol/L (3.4-5.0); Sodium 140 mmol/L (137-145)
[2021-07-11 15:49] LABS: Add Urine Microscopic? NO; Appearance Urine Clear (Clear); Bilirubin Urine Negative (Negative); Blood Urine Negative (Negative); Color Urine Yellow (Yellow); Glucose Urine UA Negative (Negative); Ketones Urine Negative (Negative); Leukocyte Esterase Ur Negative LEU/UL (Negative); Nitrate Urine Negative (Negative); Protein Urine Negative (Negative); Specific Grav Ur 1.006 (1.001-1.035); Urobilinogen Urine Negative mg/dL (<2.0)
[2021-07-11] MEDS: SODIUM CHLORIDE 0.9% IV 500 ML 999 ML IV CONT (15:55)
[2021-07-11 16:30] VITALS: BP 156/69; PULSE 77; RESP 20; O2SAT 97
[2021-07-11 17:05] VITALS: BP 156/69; PULSE 75; RESP 22; TEMP 36.8; O2SAT 98
== END 2021-07-11 17:05 | disposition home or self-care (01) ==
PROVIDERS: Emergency Provider Emergency Medicine; PCP Family Medicine
DX: R53.1 Weakness (principal); F41.9 Anxiety disorder, unspecified; M19.90 Unspecified osteoarthritis, unspecified site; I12.9 Hypertensive chronic kidney disease with stage 1 through stage 4 chronic kidney disease, or unspecified chronic kidney disease; N18.30 Chronic kidney disease, stage 3 unspecified; F03.90 Unspecified dementia, unspecified severity, without behavioral disturbance, psychotic disturbance, mood disturbance, and anxiety; F32.A Depression, unspecified; E78.5 Hyperlipidemia, unspecified; G47.33 Obstructive sleep apnea (adult) (pediatric); I48.0 Paroxysmal atrial fibrillation; Z87.19 Personal history of other diseases of the digestive system; Z88.0 Allergy status to penicillin; Z88.8 Allergy status to other drugs, medicaments and biological substances
CPT/HCPCS: 36415; 71046; 80053; 81003; 83735; 85025; 93005; 96360; 99284; J7040

== ENCOUNTER → 2021-07-16 02:37 | Outpatient (CLI) | payer MEDICARE, SELFPAY ==
[2021-07-16 16:37] LABS: SARS-CoV-2 RNA PCR Negative
== END ==
PROVIDERS: Radiology Diagnostic Radiology; PCP Family Medicine; Visit Provider Physician Assistant Medical
DX: Z01.812 Encounter for preprocedural laboratory examination (principal); Z20.822 Contact with and (suspected) exposure to COVID-19
CPT/HCPCS: C9803; U0003; U0005

== ENCOUNTER 2021-07-19 09:55 | Outpatient (CLI) | payer MEDICARE, SELFPAY ==
[2021-07-13 09:25] VITALS: BMI 29.8
--- NOTE | 2021-07-13 09:42 | PC.NURSE ---
Report to the Outpatient Waiting Room, entrance under the green pavilion located off [facility], at time __1000 on date ___07/19/21____. OR Time: ___1099 . - You and your visitor will be asked a series of questions to screen for COVID 19 for your protection. - A mask is required within the hospital. - Only one visitor is allowed at this time. Patient visitors will be guided where to wait when not with patient. Preoperative COVID Testing Requirements: No COVID Test needed if: (proof is required; if not received patient will have Rapid Test prior to entry) - Patient has received COVID Vaccine at least 14 days prior to procedure date or - Patient has positive COVID test result within last 90 days of surgery date. COVID Test needed if above criteria is not met If not COVID vaccinated a COVID test must be conducted within 72 hours of surgery and patient is asked to isolate self from time of testing until procedure. You will go to the [facility] Testing Site for your COVID testing. The [facility] is located at the corner of [address] from [facility]. You will only be called if COVID results are positive and your surgeon may reschedule your elective surgery date. Patients may have clear liquids (water, carbonated beverages, clear teas, apple juice) until 3 hours prior to surgery with a maximum of 20 ounces. - No food from midnight until time of surgery NPO 6 HRS PRE-PROCEDURE - Infants may have breast milk until 4 hours before surgery, infant formula 6 hours prior to surgery. - Children will be allowed to drink immediately following surgery. If applicable, please bring a bottle or sippy cup to assist with drinking. Juice, water, soda, and popsicles are readily available. For infants on formula, please bring formula the day of surgery. Pacifiers are allowed. Take the following medications with a SIP of water the morning of surgery: ___AM MEDS EXCEPT ASA Medications to discontinue per physician ASPIRIN 7 DAYS PRE-PROCEDURE Date to take last dose___07/12/21 Please no make-up, nail japanese, hairspray, perfume, deodorant, or body powder the day of surgery. No jewelry (including any body piercings) or valuables the day of surgery, leave them at home. Please take a shower or bath the night before, or the morning of, surgery with an antibacterial soap. Wear comfortable, loose fitting clothing. Children are encouraged to wear pajamas. - Jewelry must be removed prior to entering the operating room. Rings and piercings that are not removed may be cut off. - The hospital will not accept responsibility for valuables. - Please leave all valuables, including medications, at home the day of surgery. If you are going home after surgery, a licensed construction driver must drive you home. - NO public transportation without another adult. - We recommend that an adult stay with you for 24 hours following discharge. - We also recommend that you do not drive, make important decision, drink alcoholic beverages, or take any drugs that were not prescribed by your health care provider for at least 24 hours after your discharge time. For Pediatric surgeries, we recommend two adults accompany the child home (only one inside the building at this time). Follow any additional instructions given to you from your surgeon. Telephone instructions given to ___PATIENT and asked if any additional questions and then verbalized understanding. Patient advised to call surgeon office or pre surgery nurse liaison [phone] if any additional questions.
[2021-07-19] VITALS (8 sets, daily range): BP systolic 142–175; BP diastolic 55–69; PULSE 52–65; RESP 20; TEMP 36.6; O2SAT 96–98
--- NOTE | ~2021-07-19 | CT_ITS ---
EXAMINATION: CT biopsy lung w/imaging DATE: 07/19/2021 12:53 INDICATION: Enlarging right upper lobe pulmonary nodule TECHNIQUE: The procedure including the risks and benefits was discussed with the patient. Risks discu ssed included infection, approximately 1/20 risk of symptomatic hemorrhage beyond mild hemoptysis, ap proximately 1/3 risk of pneumothorax, and approximately 1/10 risk of pneumothorax severe enough to wa rrant chest tube placement. The patient understood the risks and agreed to proceed. The patient was p laced supine. The skin overlying the parasternal anterior right upper chest was prepped and draped i n sterile fashion. Anesthetic was administered with 1% lidocaine subcutaneously. A 19 gauge outer n eedle was advanced under CT guidance to the lesion of interest. A 20 gauge core biopsy needle was the n used to obtain 3 core biopsy specimens from the enlarging part solid nodular region of concern. The guide needle was then retracted to the more peripheral right upper lobe and additional 3 percutaneou s biopsies were obtained of a new or nodular density more anteriorly which appears to also progressed since the most recent CT imaging. The needle was removed and the entry site was cleaned and dressed. There were no immediate complications. The dose-length product was 216.34 mGy-cm. No pneumothorax o n the initial postbiopsy radiograph. FINDINGS: CT images demonstrate the outer needle tip adjacent to an irregular region of a multinodula r lung disease in the right upper lobe. Images from the initial biopsies demonstrates the biopsy need le advanced through the posterior medial most chronic enlarging heart solid opacity of concern based upon the earlier CT images. Subsequent images demonstrate the fine-needle withdrawn and positioned al miles the cephalad margin of a second large solid nodular region more anteriorly in the right upper lob e which was also subsequently biopsied. IMPRESSION: 1. Successful CT-guided biopsy of 2 discrete nodules within the region of enlarging multinodular lung disease in the right upper lobe. Reviewed, dictated and finalized at location A. HELPER FRUIT IMPRESSION: 1. Successful CT-guided biopsy of 2 discrete nodules within the region of enlar ging multinodular lung disease in the right upper lobe.
--- NOTE | ~2021-07-19 | XR_ITS ---
EXAMINATION: XR chest 1V portable EXAM DATE: 07/19/2021 13:55 INDICATION: 1 HOUR POST BX 1340 . TECHNIQUE: Portable AP frontal chest x-ray was obtained. There is no prior study for comparison. FINDINGS: Right upper lobe nodule. No evidence of postprocedural pneumothorax. Some left lateral pleu ral blunting. There are cholecystectomy clips. The cardiomediastinal silhouette is prominent but magn ified on this AP technique. There are bony degenerative changes. IMPRESSION: 1. Right upper lobe nodule. 2. No postprocedure pneumothorax. Reviewed, dictated and finalized at location A. ER ENGINEER
--- NOTE | ~2021-07-19 | XR_ITS ---
EXAMINATION: XR chest 1V portable DATE: 07/19/2021 15:37 INDICATION: 3 hours post percutaneous biopsy of a right upper lobe nodule TECHNIQUE: frontal view of the chest was obtained. COMPARISON: Chest radiograph dated 07/19/2021 FINDINGS: Nodular opacity with some associated linear atelectasis/scarring in the right upper lobe correspondin g to the biopsied nodule of concern. No other airspace opacities, pulmonary edema, pleural effusion o r pneumothorax. The cardiomediastinal silhouette is normal. IMPRESSION: 1. No pneumothorax or other acute cardiopulmonary disease post percutaneous biopsy of a right upper l obe nodule which is concerning for malignancy. Reviewed, dictated and finalized at location A. LE SUPERVISOR IMPRESSION: 1. No pneumothorax or other acute cardiopulmonary disease post percutaneous bio psy of a right upper lobe nodule which is concerning for malignancy.
--- NOTE | ~2021-07-19 | XR_ITS ---
EXAMINATION: XR chest 1V DATE: 07/19/2021 12:39 INDICATION: Right upper lobe nodule post percutaneous biopsy. TECHNIQUE: frontal view of the chest was obtained. COMPARISON: Chest radiograph dated 07/11/2021 FINDINGS: Nodular airspace opacity in right upper lung zone or sponge the biopsied nodule and likely minimal am ount of surrounding postbiopsy hemorrhage. Remainder of the lungs are clear. No pleural effusion or p neumothorax. The cardiomediastinal silhouette is normal. Left paracardial fat pad. Cholecystectomy cl ips in the right upper quadrant. IMPRESSION: 1. Minimal pulmonary hemorrhage surrounding the biopsied right upper lobe nodule with no pneumothorax . Reviewed, dictated and finalized at location A. UCTION COST ESTIMATOR IMPRESSION: 1. Minimal pulmonary hemorrhage surrounding the biopsied right upper lobe nodul e with no pneumothorax.
[2021-07-19 10:59] LABS: Mean Platelet Volume 10.8 fl (7.4-10.4); Platelet Count Result 218 k/mm3 (150-375)
[2021-07-19 11:12] LABS: Prothrombin Time 12.7 Seconds (11.1-14.7)
--- NOTE | 2021-07-19 16:11 | SUR.PHASEII ---
1550d - dr. gupta at bedside talking with pt and pt's daughter
== END 2021-07-19 16:00 | disposition home or self-care (01) ==
PROVIDERS: Radiology Diagnostic Radiology; PCP Family Medicine; Visit Provider Physician Assistant Medical
PROC: BB24ZZZ Computerized Tomography (CT Scan) of Bilateral Lungs (ICD-10-PCS; CPT 32408; principal; 2021-07-19 11:00)
DX: C34.11 Malignant neoplasm of upper lobe, right bronchus or lung (principal); R91.8 Other nonspecific abnormal finding of lung field
CPT/HCPCS: 32408; 36415; 71045; 85049; 85610; 88305; 88313; 88342; C9803; U0003; U0005

== ENCOUNTER 2021-08-31 09:13 | Outpatient (CLI) | payer MEDICARE, SELFPAY ==
--- NOTE | ~2021-08-31 | PE_ITS ---
EXAMINATION: PET skull to mid thigh DATE: 08/31/2021 11:42 INDICATION: Non-small cell lung cancer TECHNIQUE: Blood glucose level was 121 mg/dL. 7.76 mCi of 18-fluorodeoxyglucose (18-FDG) was administ ered i.v. Low dose computed tomography (CT) images were acquired from the base of the brain to the pr oximal thighs for attenuation correction and anatomic localization. Positron emission tomography (PET ) images were acquired in the same distribution beginning 62 minutes after injection. Images includin g fused PET/CT images were reconstructed in axial, coronal, and sagittal planes. Automated exposure c ontrol technique was employed. The dose-length product was 702.56mGy-cm. COMPARISON: CT abdomen and pelvis dated 10/19/[address] dated 06/24/2021 FINDINGS: Head/neck: There is symmetric increased activity in the oral cavity, palatine tonsils, parotid glands, submandi bular glands, laryngeal muscles and ocular muscles without CT correlate, likely physiologic. No patho logically enlarged cervical lymphadenopathy or suspicious foci of increased FDG uptake in the visuali zed head or neck. Chest: Bandlike consolidation extending across the anterior segment of the right upper lobe with mild FDG ac tivity with maximal SUV of 2.6 which is lower than the level of the blood pool. Mild left basilar ate lectasis. No other suspicious pulmonary nodules, pneumonia, pulmonary edema or pleural effusion. Card iomegaly. Atherosclerotic coronary artery calcification. No pericardial effusion. Thoracic aorta is n ormal in caliber. No pathologically enlarged or abnormally FDG avid thoracic lymphadenopathy. Abdomen/pelvis/proximal thighs: Physiologic renal accumulation and excretion of FDG activity in the kidneys, bladder and along portio ns of ureters. Cholecystectomy clips the gallbladder fossa. Normal degree and heterogenous pattern of increased uptake throughout the liver without radiologic correlate or dominant FDG avid lesion. The pancreas, spleen and bilateral adrenal glands are normal. Mild uptake scattered throughout the bowels without radiologic correlate, also likely physiologic. No other abnormal foci of increased FDG uptak e or pathologically enlarged lymphadenopathy in the abdomen, pelvis or proximal thighs. Musculoskeletal: Thoracic kyphosis with mild anterior wedging at T11 and T12. Moderate spondylosis in the thoracic and lumbar spine. No suspicious lytic, blastic or FDG avid bone lesions. IMPRESSION: 1. Mild FDG uptake lower than the level of the blood pool associated with a bandlike region of consol idation at the anterior segment of the right upper lobe at the site of the recently biopsy-proven wel l-differentiated lung adenocarcinoma. No evident metastatic disease in the neck, chest, abdomen or pe lvis although sensitivity would be decreased given the relatively low FDG activity of the primary les ion. Reviewed, dictated and finalized at location B. ER TREATMENT PLANT OPERATOR IMPRESSION: 1. Mild FDG uptake lower than the level of the blood pool associated with a ban dlike region of consolidation at the anterior segment of the right upper lobe a t the site of the recently biopsy-proven well-differentiated lung adenocarcinom a. No evident metastatic disease in the neck, chest, abdomen or pelvis although sensitivity would be decreased given the relatively low FDG activity of the pr imary lesion.
[2021-08-31 10:21] LABS: Glucose Point of Care 121 mg/dl (65-105)
== END 2021-08-31 09:14 | disposition home or self-care (01) ==
LOC: ANHIMG 09:18
PROVIDERS: PCP Family Medicine; Visit Provider Internal Medicine Hematology & Oncology
DX: C34.11 Malignant neoplasm of upper lobe, right bronchus or lung (principal)
CPT/HCPCS: 78815; A9552

== ENCOUNTER 2021-10-31 17:10 | Observation (INO) | payer MEDICARE, SELFPAY ==
[2021-10-31] VITALS (19 sets, daily range): BP systolic 104–165; BP diastolic 56–112; PULSE 78–149; RESP 15–34; TEMP 36.1–36.6; O2SAT 95–99; BMI 30.9
--- NOTE | ~2021-10-31 | XR_ITS ---
XR chest 2V 10/31/2021 17:52 Indication: Cough and shortness of breath. Lung cancer. Procedure: 2 view chest Comparison: Comparison to multiple prior studies sequentially, with oldest reviewed study dated 04/24. Findings: There is a nodular density in the right upper lobe, likely corresponding to area of known m alignancy. Heart size normal. Left basilar atelectasis. No focal pneumonia, edema, pleural effusion o r pneumothorax. Impression: 1: Irregular nodular density right upper lobe, likely corresponds to known malignancy. 2: Left basilar atelectasis. Reviewed, dictated and finalized at location A. RTISING AGENCY MANAGER Impression: 1: Irregular nodular density right upper lobe, likely corresponds to known carlos gnancy. 2: Left basilar atelectasis.
--- NOTE | ~2021-10-31 | US_ITS ---
EXAMINATION: US venous doppler LE EXAM DATE: 11/01/2021 09:41 INDICATION: Bilateral leg swelling. TECHNIQUE: Multiple grayscale, color flow and Doppler images of the lower extremity deep venous syste ms bilaterally were obtained and reviewed. Comparison is made to prior examination from 11/16/2020. FINDINGS: Right side: The right common femoral, femoral and profunda veins demonstrate normal color flow, respi ratory variation, augmentation and compressibility. Compressibility, color flow confirmed within the right popliteal, posterior tibial, peroneal, and greater saphenous veins. Left side: The left common femoral, femoral and profunda veins demonstrate normal color flow, respira tory variation, augmentation and compressibility. Compressibility, color flow confirmed within the l eft popliteal, posterior tibial, peroneal, and greater saphenous veins. IMPRESSION: No lower extremity deep venous thrombosis bilaterally. Reviewed, dictated and finalized at location A. STANT PASSENGER LOCOMOTIVE ENGINEER
--- NOTE | 2021-10-31 17:18 | ECG_ITS ---
Measurements Intervals [place] Rate: 134 P: AK: 0 QRS: -10 QRSD: 81 T: 125 QT: 302 QTc: 452 Interpretive Statements ATRIAL FIBRILLATION WITH RAPID VENTRICULAR RESPONSE MINIMAL VOLTAGE CRITERIA FOR LVH, CONSIDER NORMAL VARIANT [MEETS CRITERIA IN ONE OF: R(aVL), S(V1), R(V5), R(V5/V6)+S(V1)] ST DEVIATION AND MODERATE T-WAVE ABNORMALITY, CONSIDER LATERAL ISCHEMIA [-0.1+ mV T WAVE IN I/aVL/V5/V6] ABNORMAL ECG COMPARED TO ECG 07/11/2021 15:02:23 ATRIAL FIBRILLATION NOW PRESENT Electronically Signed On 11-01-2021 13:54:17 THIOKOL OPERATOR by Mariano Kohli M.D.
[2021-10-31 17:34] LABS: Basophils Absolute Auto 0.1 K/mm3 (0.0-0.1); Basophils Percent Auto 0.5 % (0.2-1.2); Eosinophils Absolute Auto 0.2 K/mm3 (0-0.3); Eosinophils Percent Auto 1.7 % (0-4.4); Hematocrit 41.7 % (37.0-47.0); Hemoglobin 13.8 g/dL (12.0-15.0); Immature Granulocyte Absolute 0.07 K/mm3 (0.00-0.031); Immature Granulocyte Percent A 0.6 % (0-0.5); Lymphocytes Absolute Auto 1.94 K/mm3 (0.9-3.2); Lymphocytes Percent Auto 16.7 % (18.3-44.2); Mean Corpuscular HGB Conc 33.1 g/dl (32-36); Mean Corpuscular Hemoglobin 30.9 pg (26-34); Mean Corpuscular Volume 93.3 fl (80-100); Mean Platelet Volume 9.9 fl (7.4-10.4); Monocytes Absolute Auto 1.1 K/mm3 (0.1-0.6); Monocytes Percent Auto 9.3 % (2.6-8.5); Neutrophils Absolute Auto 8.3 K/mm3 (1.3-6.7); Neutrophils Percent Auto 71.2 % (45.5-73.1); Platelet Count Result 248 k/mm3 (150-375); Red Blood Count 4.47 M/mm3 (4.2-5.4); Red Cell Distribution Width 14.4 % (11.5-14.5); White Blood Count 11.6 K/mm3 (4.5-10.0)
[2021-10-31 17:40] LABS: Alanine Aminotransferase 16 U/L (4-35); Albumin Level 4.3 g/dL (3.5-5.1); Alkaline Phosphatase 103 U/L (38-126); Anion Gap 10 mmol/L (8-16); Aspartate Amino Transferase 31 U/L (14-36); Bilirubin,Total 0.6 mg/dL (0.2-1.3); Blood Urea Nitrogen 14 mg/dL (7-17); Calcium 9.3 mg/dL (8.4-10.2); Carbon Dioxide 24 mmol/L (22-30); Chloride 107 mmol/L (98-107); Estimated Glomerular Filt Rate 47; Glucose 129 mg/dL (65-110); Potassium 3.7 mmol/L (3.4-5.0); Sodium 141 mmol/L (137-145)
--- NOTE | 2021-10-31 17:45 | ED.WEAKNESS ---
HPI - Weakness General Chief complaint: Weakness Stated complaint: WEAK, R LUNG CANCER Time Seen by Provider: 10/31/21 17:20 Source: patient Mode of arrival: ambulatory Limitations: no limitations History of Present Illness HPI Narrative: Patient is an 81-year-old female who presents the ED with complaints of weakness. Patient has past medical history of A. fib, CHF, CKD, hypertension, and right lung carcinoma, diagnosed in June 2021. She reports she has undergone 5 radiation treatments, the last occurring last , 10/28. At this time, there is no plan to perform chemotherapy. Patient reports she began feeling increasingly weak yesterday. She describes this as a generalized weakness, stating she just has no energy. She also reports having increased shortness of breath on exertion. She notes that she typically has difficulty walking long distances due to her chronic arthritis, but she has felt weak and short of breath doing simple activities around the house yesterday and today. She denies any other complaints at this time, any focal weakness, headache, vision changes, chest pain, cough, congestion, fever, chills, nausea, vomiting, abdominal pain, back pain, urinary symptoms. Patient takes 120 mg of diltiazem for her atrial fibrillation and took this this morning. Patient mention she was diagnosed with the flu at a [facility] 2 weeks ago and she is currently taking a 10-day course of doxycycline for this. She has four days left. She states she did feel better and had her strength back after this incident up until yesterday. Related Data Home Medications Medication Instructions Recorded Confirmed diltiazem HCl [Tiadylt ER] 120 mg PO QAM 07/13/21 10/31/21 losartan 100 mg PO QAM 07/13/21 10/31/21 citalopram 20 mg PO DAILY 10/31/21 10/31/21 doxycycline hyclate 100 mg PO DAILY 10/31/21 10/31/21 melatonin 3 mg PO HS 10/31/21 10/31/21 vitamin G-tkpiotncptsi-etpuzox 1 tablet PO BID 10/31/21 10/31/21 [Emergen-C] Allergies Allergy/AdvReac Type Severity Reaction Status Date / Time Penicillins Allergy Severe Hives Verified 10/31/21 17:19 nitrofurantoin Allergy Intermediate Hives Verified 10/31/21 17:19 [From Macrobid] Quinolones Allergy Mild Unknown Verified 10/31/21 17:19 cefprozil Allergy Unknown Unknown Verified 10/31/21 17:19 cefuroxime Allergy Unknown Unknown Verified 10/31/21 17:19 Cephalosporins Allergy Unknown Unknown Verified 10/31/21 17:19 gatifloxacin Allergy Unknown Unknown Verified 10/31/21 17:19 metronidazole Allergy Unknown Unknown Verified 10/31/21 17:19 erythromycin base AdvReac Unknown Stomach Verified 10/31/21 17:19 cramps loratadine [From Claritin] AdvReac Unknown Jittery Verified 10/31/21 17:19 Review of Systems Review of Systems: CONSTITUTIONAL: Reports generalized weakness, fatigue. Denies fever, chills. EYES: Denies visual changes. ENT: Denies rhinorrhea, congestion. CARDIOVASCULAR: Denies chest pain, palpitations, or edema. RESPIRATORY: Reports [place]. Denies cough. GASTROINTESTINAL: Denies abdominal pain, nausea, vomiting, or diarrhea. GENITOURINARY: Denies dysuria or hematuria. MUSCULOSKELETAL: Denies back pain or myalgia. NEUROLOGIC: Denies headache, numbness, or focal weakness. All systems reviewed & are unremarkable except as noted in HPI and below PMFSH Past Medical History Medical History Anxiety Aortic valve regurgitation Moderate by echocardiogram in October 2018. Followed by Dr. Velasco. Arthritis Benzodiazepine dependence BMI 28.0-28.9,adult BMI 29.0-29.9,adult Bronchiectasis Prior imaging demonstrated bronchiectasis in bilateral lower lobes with chronic scarring. Chronic kidney disease, stage 3 Baseline creatinine between 1.20 and 1.40. Chronic midline low back pain with sciatica Dementia Reported by daughter, however the patient disputes this. Depression Diverticulitis Gastroesophageal reflux disease Hyperlipide
[2021-10-31] MEDS: SODIUM CHLORIDE 0.9% IV 500 ML 999 ML IV CONT (17:58)
[2021-10-31] MEDS: METOPROLOL TARTRATE INJ 5 MG/5 ML VIAL IV PUSH (17:59)
[2021-10-31 18:03] LABS: INR 1.1; Partial Thromboplastin Time 26.4 SECONDS (22.3-36.8); Prothrombin Time 13.6 Seconds (11.1-14.7)
[2021-10-31 18:16] LABS: Add Urine Microscopic? YES; Appearance Urine Cloudy (Clear); Bilirubin Urine Negative (Negative); Blood Urine Negative (Negative); Calcium Oxalate Crystals Urine Present /hpf; Color Urine Yellow (Yellow); Glucose Urine UA Negative (Negative); Ketones Urine Negative (Negative); Leukocyte Esterase Ur 2+ LEU/UL (Negative); Mucus Urine Rare /lpf; Nitrate Urine Negative (Negative); Protein Urine Negative (Negative); Specific Grav Ur 1.018 (1.001-1.035); Squamous Epithelial Cell Urine Few /hpf (Few); Urobilinogen Urine Negative mg/dL (<2.0); WBC Urine 31-50 /hpf
[2021-10-31 18:16] LABS: NT Pro B Type Natriuretic Pept 1950 pg/mL (5-100); Troponin I < 0.012 ng/mL (0.000-0.034)
--- NOTE | 2021-10-31 19:46 | PM.IMHP ---
H&P: HPI History of Present Illness Date/Time: 10/31/21 19:46 Chief Complaint: Fatigue Narrative: This is an 81-year-old female with past medical history significant for lung cancer patient does concluded radiation treatment last week. She presents to the emergency room due to extreme fatigue, poor appetite, muscle aches and pains, having chills, no cough, shortness of breath, no sputum production, has had palpitations, decreased stamina, no chest pain, some leg swelling as well, no dizziness, no lightheadedness, known near-syncope or syncope. Patient had been to the urgent care earlier in the week and she was given doxycycline for cold-like symptoms. Preliminary workup in emergency room was significant for urinalysis with numerous wbc's. Patient was also noted to have atrial fibrillation with rapid ventricular response. Patient has been admitted for further evaluation, management and treatment. Review of Systems Review of Systems: Fatigue, palpitation, shortness of breath, poor appetite, leg swelling. Constitutional: Constitutional: Reports chills, Reports fatigue, Denies fever(s), Reports lethargy, Reports malaise, Denies night sweats, Reports poor appetite and Reports weakness Eyes: Eyes: Denies change in vision ENT: Denies dysphagia, Denies vertigo, Denies dizziness, Denies nasal congestion, Denies nasal discharge, Denies nasal obstruction and Denies odynophagia Cardiovascular: Cardiovascular: Denies claudication, Reports leg edema, Denies lightheadedness, Denies radiating jaw, neck or arm pain, Reports palpitations, Reports dyspnea and Reports dyspnea on exertion Respiratory: Respiratory: Denies chest congestion, Denies cough, Denies excessive phlegm production, Reports dyspnea on exertion and Denies wheezing Gastrointestinal: Gastrointestinal: Denies abdominal pain, Denies dyspepsia, Denies heartburn, Denies diarrhea, Denies nausea and Denies vomiting Genitourinary: Genitourinary: Denies dysuria and Denies flank pain Musculoskeletal: Musculoskeletal: Reports muscle weakness Integumentary/Breasts: Skin/Breast: Denies rash Neurologic: Denies focal weakness and Denies Sensory deficit (Neuro) Psychiatric: Psychiatric: Reports no additional psychiatric complaints and Reports as per HPI Endocrine: Endocrine: Denies cold intolerance, Denies heat intolerance, Denies polyphagia, Denies polydipsia and Denies palpitations Hematologic/Lymphatic: Hematologic/Lymphatic: Reports no additional hematologic/lymphatic complaints and Reports as per HPI Allergic/Immunologic: Allergic/Immunologic: Reports no additional allergic/immunologic complaints and Reports as per HPI [facility] Past Medical History Medical History Anxiety Aortic valve regurgitation Moderate by echocardiogram in October 2018. Followed by Dr. Velasco. Arthritis Benzodiazepine dependence BMI 28.0-28.9,adult BMI 29.0-29.9,adult Bronchiectasis Prior imaging demonstrated bronchiectasis in bilateral lower lobes with chronic scarring. Chronic kidney disease, stage 3 Baseline creatinine between 1.20 and 1.40. Chronic midline low back pain with sciatica Dementia Reported by daughter, however the patient disputes this. Depression Diverticulitis Gastroesophageal reflux disease Hyperlipidemia Hypertension Nausea Obstructive sleep apnea Paroxysmal atrial fibrillation She has declined anticoagulation and antiarrhythmics previously but is now on metoprolol daily. She is followed by Dr. Velasco. Surgical History Surgical History History of appendectomy History of cardiac catheterization No known intervention. History of cataract surgery History of cholecystectomy History of tooth extraction Status post appendectomy Status post cataract extraction Status post hysterectomy Status post tubal ligation Family History Family History (Reviewed 09/17/21 @ 10:58 by Beatriz
--- NOTE | 2021-10-31 21:10 | ADMGEN ---
This patient, Chiara Faith, was admitted to IMU Room 206-02. Patient/family oriented to hospital policies and general routines including ID bracelet, bed and alarms, visiting hours, pain management, procedures, bathroom and other care routines, personal items, smoking policy, room service/diet, and visiting hours. Information on how to activate the Rapid Response Team has been discussed. Patient/Family are encouraged to report perceived risks to care and to ask questions if they do not understand what they are told or what they should do.
[2021-10-31] MEDS: ALPRAZolam (*CRX) 0.5 MG TABLET PO (22:32)
[2021-10-31] MEDS: MELATONIN 3 MG TABLET PO (22:32)
[2021-10-31 23:37] LABS: Troponin I < 0.012 ng/mL (0.000-0.034)
[2021-11-01] VITALS (14 sets, daily range): BP systolic 105–141; BP diastolic 52–66; PULSE 63–112; RESP 16–20; TEMP 35.6–36.6; O2SAT 93–97
--- NOTE | 2021-11-01 | ECHO_ITS ---
Patient Info Name: Chiara Faith Age: 81 years : 1940 Gender: Female Ht: 59 in Wt: 153 lbs BSA: 1.73 m2 HR: 70 bpm BP: 105 / 66 mmHg Heart Rhythm: Sinus Rhythm Exam Date: 11/01/2021 10:32 AM Exam Location: [facility] Patient Status: Outpatient Admit Date: 10/31/2021 Staff Ordering Physician: Joy Fisher MD Telephone Lineman: Steven Loja, SALINAS, RT Attending Provider: Ivette Roberts Referring Physician: Natalia CHILDERS; Exam Type: CA echo doppler color flow Study Info Indications I48.0 - Paroxysmal atrial fibrillation Complete two-dimensional, color flow and Doppler transthoracic echocardiogram is performed. Strain analysis performed. Summary 1. Complete two-dimensional, color flow and Doppler transthoracic echocardiogram is performed. 2. Left ventricular chamber dimension is normal. 3. Left ventricular systolic function is normal, estimated at 55-60%. 4. There is moderately increased left ventricular wall thickness. 5. The left ventricular diastolic function is grade I diastolic dysfunction. 6. There is mild mitral valve regurgitation. 7. There is mild to moderate aortic valve regurgitation. Left Ventricle Left ventricular chamber dimension is normal. Left ventricular systolic function is normal, estimated at 55-60%. There is moderately increased left ventricular wall thickness. The left ventricular diastolic function is grade I diastolic dysfunction. Global longitudinal strain is normal at -19 %. Right Ventricle Right ventricular chamber dimension is normal. Right ventricular systolic function is normal. Left Atria Left atrial chamber dimension is normal. Right Atria Right atrial chamber dimension is normal. Aortic Valve The aortic valve is not well visualized. There is no aortic valve stenosis. There is mild to moderate aortic valve regurgitation. Pulmonic Valve The pulmonic valve is not well visualized. Mitral Valve The mitral valve has normal leaflets. There is mild mitral valve regurgitation. The mitral valve annulus is mildly calcified. Tricuspid Valve The tricuspid valve leaflets are normal. There is trace tricuspid valve regurgitation. No pulmonary hypertension, estimated pulmonary arterial systolic pressure is 30 mmHg. Pericardium/Pleural The pericardium appears normal. There is trivial pericardial effusion. Inferior Vena Cava Normal inferior vena cava with >50% collapse upon inspiration consistent with normal right atrial pressure, 5 mmHg. Aorta The aortic root size at the sinus of Valsalva is normal. There is mild aortic atherosclerosis. Left Ventricular Outflow Tract Name Value Normal LVOT 2D LVOT Diameter 2.0 cm LVOT Doppler LVOT Peak Gradient 7 mmHg LVOT Mean Gradient 4 mmHg LVOT VTI 30 cm LVOT VTI/AV VTI Ratio 0.7 LVOT Stroke Volume 94 ml LVOT CO 7.2 l/min LVOT CI 4.1 l/min/m2 Mitral Valve --
[2021-11-01 02:27] LABS: Estimated Glomerular Filt Rate 53
[2021-11-01 02:40] LABS: Troponin I < 0.012 ng/mL (0.000-0.034)
[2021-11-01 08:08] LABS: Gentamicin Random 3.5 ug/mL (5.0-12.0)
[2021-11-01] MEDS: FUROSEMIDE 20 MG TABLET PO (08:36)
[2021-11-01] MEDS: LOSARTAN POTASSIUM 100 MG TABLET PO (08:36)
[2021-11-01] MEDS: ALPRAZolam (*CRX) 0.5 MG TABLET PO ×2 (08:36→20:07)
[2021-11-01] MEDS: ASPIRIN 81 MG ENTERIC TABLET PO (08:36)
[2021-11-01] MEDS: CITALOPRAM HYDROBROMIDE 20 MG TABLET PO (08:36)
[2021-11-01] MEDS: ASCORBIC ACID 500 MG TABLET 1000 MG PO ×2 (08:36→16:40)
[2021-11-01] MEDS: PANTOPRAZOLE 40 MG TABLET PO (08:36)
--- NOTE | 2021-11-01 10:32 | PCCCNOTE ---
On 11/01/21, the student, [Denisse Meraz ], provided care and [facility]. I have reviewed the student's documentation and agree with the findings.
--- NOTE | 2021-11-01 13:50 | PM.IMPN ---
Progress Note: A&P Additional Plan Assessment and plan (1) Urinary tract infection: Qualifiers: Hematuria presence: without hematuria Urinary tract infection type: acute cystitis Qualified Code(s): N30.00 - Acute cystitis without hematuria Code(s): N39.0 - Urinary tract infection, site not specified Status: Acute Assessment and Plan: - Continue Tobramycin as pt. has many allergies pending Urine Cx. - Follow urine Culture. (2) Atrial fibrillation with rapid ventricular response: Code(s): I48.91 - Unspecified atrial fibrillation Status: Acute Assessment and Plan: - Not anticoagulated as she has a history of frequent falls. - Received metoprolol IV push in emergency room - Resume diltiazem 120 mg p.o. daily - Continue to monitor - Telemetry - Cardiology consult. (3) Aortic valve regurgitation: Code(s): I35.1 - Nonrheumatic aortic (valve) insufficiency Status: Acute Assessment and Plan: - Continue to monitor (4) Bilateral edema of lower extremity: Code(s): R60.0 - Localized edema Status: Acute Assessment and Plan: - Patient with no signs of fluid overload on chest x-ray - Likely to be venous insufficiency - Compression stockings - ECHO (5) Chronic combined systolic and diastolic congestive heart failure: Code(s): I50.42 - Chronic combined systolic (congestive) and diastolic (congestive) heart failure Status: Acute Assessment and Plan: - Continue to monitor - ECHO - Daily intake and output - Daily weight (6) CKD (chronic kidney disease) stage 3, GFR 30-59 ml/min: Code(s): N18.3 - Chronic kidney disease, stage 3 (moderate) Status: Acute Assessment and Plan: - At Baseline - Continue to monitor with labs. (7) Obstructive sleep apnea: Code(s): G47.33 - Obstructive sleep apnea (adult) (pediatric) Status: Acute Assessment and Plan: - No use of CPAP or BiPap at nighttime. - Apnealink ordered for tonight. (8) GERD (gastroesophageal reflux disease): Code(s): K21.9 - Gastro-esophageal reflux disease without esophagitis Status: Acute Assessment and Plan: - PPI as needed Time Spent With Patient Time with patient: 15 - 25 minutes Subjective Date/time seen: 11/01/21 1230 This patient was evaluated at the bedside today in interval assessment. She currently denies any palpitations, but states they come and go. She has a significant PMH of A-fib RVR and is not anticoagulated secondary to her fall risk. She endorses that yesterday she had severe weakness, [place], feelings of her heart racing and also decreased appetite that all comes and goes. When she finally told her daughter, she made her come to the ER for evaluation. No other complaints such as CP, current dyspnea, N/V/D. Review of Systems Review of Systems: A full 12 point ROS was performed and is otherwise negative with exception of what is in HPI. All systems reviewed & are unremarkable except as noted in HPI and below Exam Const: General: comfortable and no acute distress HENMT: Mouth: Yes moist mucous membranes Eyes: Sclera: sclerae normal Neck: Neck: supple and no JVD Lymphatic: lymphadenopathy not noted Cardio: Rate: tachycardic Rhythm: abnormal rhythm GI: GI Palp: Yes Soft to palpation and No Tenderness to palpation present (GI) Auscultation: normal bowel sounds Skin: General skin exam: normal color and no rashes or lesions noted Neuro: General: gait normal Cognition (Neuro): normal cognition Speech: normal speech Motor exam (neuro): 5/5 motor strength present throughout and Normal motor muscle tone present throughout Sensory Exam: normal sensation Extrem: General: normal to inspection Right upper extremity: normal to inspection Left upper extremity: normal to inspection Right lower extremity: edema Left lower extremity: edema Psych: Mental Status: mental status grossly normal Affect
--- NOTE | 2021-11-01 15:18 | PM.CNCAR ---
Assessment and Plan Additional Plan Well-established diagnosis of paroxysmal atrial fibrillation in this elderly 81-year-old lady who also has just finished undergoing radiation therapy for a right upper lobe lung malignancy. The paroxysmal atrial fib is not anything new and she has not changed her mind with respect to treating this more aggressively. I am going to try recently dose of her diltiazem from 120-180 mg. I would otherwise prefer to prescribe something like sotalol try to control this more effectively but she does not wish to take any antiarrhythmic medications and as I have dictated in previous notes in the chart this has been her consistent opinion. For this reason paroxysmal atrial fib is probably not a reason this lady has to be admitted to the hospital now or in the future since she does not wish to have it treated with anything else other than diltiazem. I renewed by statement to her that diltiazem generally will not keep her in sinus rhythm it will simply reduce her heart rate when she is in atrial fibrillation. Freddie Velasco MD [facility] History of Present Illness History of Present Illness Consult date/time: 11/01/21 15:18 Consult reason: atrial fibrillation Reason For Visit: Weakness, AFIB w/ RVR, urinary tract infection Narrative: This is a 81-year-old woman I am seeing this afternoon at the request of the hospitalist because of paroxysmal atrial fibrillation. This is a patient who I have known for a number of years he carries the diagnosis of paroxysmal AFib is. In the past she has also had some supraventricular tachycardia documented as well. 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 She just concluded a series of radiation therapy treatments for this lesion and was brought into the hospital yesterday with a variety of nonspecific complaints including generalized weakness and fatigue as well as occasional palpitations. When she came into the emergency room more of was admitted she was in atrial fibrillation. She is currently in sinus rhythm. This lady has a well documented history of paroxysmal atrial fib. I will refer to the reader to several consult from our practice in 2020 to review these notes. The summary is that the patient does have symptomatic palpitations with intermittent episodes of atrial fibrillation and she has only agreed to take diltiazem for this. She consistently does not wish to and will not consider taking more aggressive antiarrhythmic medication for symptomatic benefit of this. She is fearful of the risks of more aggressive antiarrhythmic drugs. She also when the diagnosis was established in the past declined to consider systemic anticoagulation. Had a long talk with her today she has not changed her mind about any of this. She thinks she would agree to trying a higher dose of diltiazem. Review of Systems Constitutional: Constitutional: Reports fatigue and Reports weakness Eyes: Eyes: Reports no additional eye complaints ENT: Reports system reviewed and no additional complaints, except as documented Cardiovascular: Cardiovascular: Reports as per HPI and Reports palpitations Respiratory: Respiratory: Reports no additional respiratory complaints Gastrointestinal: Gastrointestinal: Reports no additional gastrointestinal complaints Musculoskeletal: Musculoskeletal: Reports myalgias Integumentary/Breasts: Skin/Breast: Reports system reviewed and no additional complaints, except as docu Neurologic: Reports system reviewed and no additional complaints, except as documented Endocrine: Endocrine: Reports no additional endocrine complaints Hematologic/Lymphatic: Hematologic/Lymphatic: Reports no additional hematologic/lymphatic complaints Allergic/Immunologic: Allergic/Immunologic: Reports no additional allergic/immunologic complaints PMFSH Past Medical History Medical History Anxiety
[2021-11-01] MEDS: LOVASTATIN 20 MG TABLET 40 MG PO (17:56)
[2021-11-01] MEDS: MELATONIN 3 MG TABLET PO (20:07)
--- NOTE | 2021-11-01 21:13 | PCRCNOTE ---
RT asked patient about participating in a sleep apnea study test and explained the reason for testing, patient does not want to receive test here but would be willing to further discuss her options for a sleep test elsewhere.
[2021-11-02] VITALS: BP 133/56; PULSE 64; PULSE 66; RESP 16; RESP 19; TEMP 36.2; O2SAT 93; O2SAT 95
[2021-11-02 04:00] VITALS: PULSE 61; PULSE 66; RESP 16; O2SAT 93
[2021-11-02 05:15] VITALS: BP 135/53; PULSE 63; RESP 20; TEMP 35.9; O2SAT 94
[2021-11-02 08:00] VITALS: BP 153/70; PULSE 73; PULSE 79; RESP 18; TEMP 36.3; O2SAT 95
[2021-11-02] MEDS: dilTIAZem HCL CD 180 MG CAP.ER.24H PO (08:40)
[2021-11-02] MEDS: FUROSEMIDE 20 MG TABLET PO (08:41)
[2021-11-02] MEDS: ASPIRIN 81 MG ENTERIC TABLET PO (08:41)
[2021-11-02] MEDS: PANTOPRAZOLE 40 MG TABLET PO (08:41)
[2021-11-02] MEDS: ASCORBIC ACID 500 MG TABLET 1000 MG PO (08:41)
[2021-11-02] MEDS: ALPRAZolam (*CRX) 0.5 MG TABLET PO (08:41)
[2021-11-02] MEDS: LOSARTAN POTASSIUM 100 MG TABLET PO (08:41)
[2021-11-02] MEDS: CITALOPRAM HYDROBROMIDE 20 MG TABLET PO (08:41)
[2021-11-02 10:00] VITALS: PULSE 72
--- NOTE | 2021-11-02 10:41 | PM.PNCARD ---
Progress Note: A&P Assessment and Plan (1) PAF (paroxysmal atrial fibrillation): Code(s): I48.0 - Paroxysmal atrial fibrillation Status: Acute Assessment and Plan: Patient with hypertension, paroxysmal atrial fibrillation, currently in sinus rhythm. She has been managed with diltiazem. Based on the notes, patient has been reluctant for anticoagulation. Based on the conversation today, she states that she also is a fall risk. Patient was cautioned about stroke risk in the absence of anticoagulation for atrial fibrillation. Patient will follow-up with Dr. Velasco in the cardiology clinic for long-term care. May consider evaluation for left atrial appendage occlusion as an outpatient, if patient is willing. Okay to discharge home from cardiac standpoint. (2) Aortic regurgitation: Code(s): I35.1 - Nonrheumatic aortic (valve) insufficiency Status: Acute Assessment and Plan: surveillance echocardiograms as an outpatient. Time Spent With Patient Time with patient: 15 - 25 minutes Subjective Date/time seen: 11/02/21 10:41 Date of service 11/02/2021-patient states that she is feeling better today. She denies any ongoing chest pain, shortness a breath, palpitations. She is eager to go home. Exam Narrative: PHYSICAL EXAMINATION: GENERAL: Alert, oriented, no acute distress MENTAL STATUS: affect appropriate to mood EYES: Extraocular movements intact, no pallor EARS: External ears appear normal, hearing grossly normal NOSE: Normal and patent, no discharge MOUTH: Mucous membranes moist, tongue normal NECK: Supple, no JVD CHEST: Clear to auscultation HEART: Normal rate, regular rhythm at present ABDOMEN: Soft, nontender NEUROLOGICAL: Alert, oriented, normal speech, no gross motor deficits MUSCULOSKELETAL: No major deformity, no amputation EXTREMITIES: No pedal edema, no clubbing, no cyanosis SKIN: no rash on the exposed area, no cyanosis PSYCHIATRIC: Normal mood, appropriate affect Objective Data Vital Signs Vital Signs: Vital Signs - 24 hr 11/01/21 11:47 11/01/21 12:00 11/01/21 14:00 Temperature 36.3 C L Pulse Rate 64 63 65 Respiratory Rate 16 Blood Pressure 128/57 L Pulse Oximetry 97 11/01/21 16:00 11/01/21 18:00 11/01/21 20:00 Temperature 36.6 C 35.6 C L Pulse Rate 70 95 66 Respiratory Rate 18 16 Blood Pressure 131/52 L 141/58 H Pulse Oximetry 96 93 11/01/21 20:36 11/01/21 21:00 11/01/21 22:00 Temperature 36.2 C L Pulse Rate 64 64 Respiratory Rate 19 Blood Pressure 133/56 L Pulse Oximetry 93 95 11/02/21 00:00 11/02/21 04:00 11/02/21 05:15 Temperature 36.2 C L 35.9 C L Pulse Rate 66 66 63 Respiratory Rate 16 16 20 Blood Pressure 133/56 L 135/53 L Pulse Oximetry 93 93 94 11/02/21 08:00 Temperature 36.3 C L Pulse Rate 73 Respiratory Rate 18 Blood Pressure 153/70 H Pulse Oximetry 95 Intake/Output Intake/Output: Intake & Output 10/30/21 10/31/21 11/01/21 11/02/21 23:59 23:59 23:59 23:59 Intake Total 546.5 935 Output Total 600 600 Balance -53.5 335 Meds/Results Medications: Active Medications Generic Name Dose Route Start Last Admin Trade Name Freq PRN Reason Stop Dose Admin Albuterol 2 puff 11/01/21 01:34 Albuterol Sulfate (*Sp) Aerosol 1 Puff INHALATION Q4H PRN wheezing Albuterol 2.5 mg 11/01/21 01:37 Albuterol Sulfate Neb 2.5 Mg/0.5 Ml Inh INHALATION Q6HRT PRN Shortness Of Breath Alprazolam 0.5 mg 11/01/21 09:00 11/02/21 08:41 Alprazolam (*Crx) 0.5 Mg Tablet PO 0.5 mg BID CYRIL Administration Ascorbic Acid 1,000 mg 11/01/21 09:00 11/02/21 08:41 Ascorbic Acid 500 Mg Tablet PO 12/01/21 08:59 1,000 mg BID CYRIL Administration Aspirin 81 mg 11/01/21 09:00 11/02/21 08:41 Aspirin 81 Mg Enteric Tablet PO 81 mg DAILY CYRIL Administration Citalopram Hydrobromide 20 mg 11/01/21 09:00 11/02/21 08:41 Citalopram Hydrobromide 20 Mg
--- NOTE | 2021-11-02 11:36 | PM.DS ---
DS: Admitting Diagnosis Discharge Date 11/02/21 Admitting Diagnosis (1) Urinary tract infection: Qualifiers: Hematuria presence: without hematuria Urinary tract infection type: acute cystitis Qualified Code(s): N30.00 - Acute cystitis without hematuria Code(s): N39.0 - Urinary tract infection, site not specified (2) Atrial fibrillation with rapid ventricular response: Code(s): I48.91 - Unspecified atrial fibrillation Status: Acute (3) Aortic valve regurgitation: Code(s): I35.1 - Nonrheumatic aortic (valve) insufficiency (4) Bilateral edema of lower extremity: Code(s): R60.0 - Localized edema (5) Chronic combined systolic and diastolic congestive heart failure: Code(s): I50.42 - Chronic combined systolic (congestive) and diastolic (congestive) heart failure Status: Acute Assessment and Plan: (6) CKD (chronic kidney disease) stage 3, GFR 30-59 ml/min: Code(s): N18.3 - Chronic kidney disease, stage 3 (moderate) Status: Acute Assessment and Plan: (7) Obstructive sleep apnea: Code(s): G47.33 - Obstructive sleep apnea (adult) (pediatric) Status: Acute Assessment and Plan: (8) GERD (gastroesophageal reflux disease): Code(s): K21.9 - Gastro-esophageal reflux disease without esophagitis Status: Acute DS: Discharge Diagnosis Discharge Diagnosis (1) PAF (paroxysmal atrial fibrillation): Code(s): I48.0 - Paroxysmal atrial fibrillation Status: Acute (2) Weakness: Code(s): R53.1 - Weakness Status: Acute (3) Aortic regurgitation: Code(s): I35.1 - Nonrheumatic aortic (valve) insufficiency Status: Acute (4) Urinary tract infection: Qualifiers: Hematuria presence: without hematuria Urinary tract infection type: acute cystitis Qualified Code(s): N30.00 - Acute cystitis without hematuria Code(s): N39.0 - Urinary tract infection, site not specified Status: Acute (5) Mass of right lung: Code(s): R91.8 - Other nonspecific abnormal finding of lung field Status: Acute (6) Paroxysmal atrial fibrillation: Code(s): I48.0 - Paroxysmal atrial fibrillation Status: Acute (7) GERD (gastroesophageal reflux disease): Code(s): K21.9 - Gastro-esophageal reflux disease without esophagitis Status: Acute (8) Chronic kidney disease, stage 3: Code(s): N18.3 - Chronic kidney disease, stage 3 (moderate) Status: Acute (9) Obstructive sleep apnea: Code(s): G47.33 - Obstructive sleep apnea (adult) (pediatric) Status: Acute (10) Chronic combined systolic and diastolic congestive heart failure: Code(s): I50.42 - Chronic combined systolic (congestive) and diastolic (congestive) heart failure Status: Acute (11) CKD (chronic kidney disease) stage 3, GFR 30-59 ml/min: Code(s): N18.3 - Chronic kidney disease, stage 3 (moderate) Status: Acute (12) Benign hypertension: Code(s): I10 - Essential (primary) hypertension Status: Acute DS: Summary Hospital Course Reason for hospitalization: Fatigue Hospital Course: 81-year-old female with past medical history significant for lung cancer patient does concluded radiation treatment last week. She presents to the emergency room due to extreme fatigue, poor appetite, muscle aches and pains, having chills, no cough, shortness of breath, no sputum production, has had palpitations, decreased stamina, no chest pain, some leg swelling as well, no dizziness, no lightheadedness, known near-syncope or syncope. Patient had been to the urgent care earlier in the week and she was given doxycycline for cold-like symptoms. Preliminary workup in emergency room was significant for urinalysis with numerous wbc's. Patient was also noted to have atrial fibrillation with rapid ventricular response. Patient was admitted for further evaluation, management
== END 2021-11-02 12:00 | disposition home or self-care (01) ==
LOC: ANHED 18:05 → ANHIMU 20:10
PROVIDERS: Physician Assistant; Admitting Provider Internal Medicine; Emergency Provider Emergency Medicine; PCP Family Medicine; Visit Provider Hospitalist
DX: I48.0 Paroxysmal atrial fibrillation (principal); I35.1 Nonrheumatic aortic (valve) insufficiency; N30.00 Acute cystitis without hematuria; C34.11 Malignant neoplasm of upper lobe, right bronchus or lung; R53.1 Weakness; R60.0 Localized edema; I13.0 Hypertensive heart and chronic kidney disease with heart failure and stage 1 through stage 4 chronic kidney disease, or unspecified chronic kidney disease; N18.30 Chronic kidney disease, stage 3 unspecified; I50.42 Chronic combined systolic (congestive) and diastolic (congestive) heart failure; R06.02 Shortness of breath; I34.0 Nonrheumatic mitral (valve) insufficiency; F41.8 Other specified anxiety disorders; K21.9 Gastro-esophageal reflux disease without esophagitis; E78.5 Hyperlipidemia, unspecified; G47.33 Obstructive sleep apnea (adult) (pediatric); Z92.3 Personal history of irradiation; Z79.51 Long term (current) use of inhaled steroids; Z79.82 Long term (current) use of aspirin
CPT/HCPCS: 36415; 71046; 80053; 80170; 81001; 82565; 83880; 84484; 85025; 85610; 85730; 87077; 87086; 87186; 93005; 93306; 93970; 96361; 96365; 96366; 96374; 96375; 96376; 99285; A9270; G0378; J1580; J7040

== ENCOUNTER 2021-11-07 13:52 | Emergency (ER) | payer MEDICARE, SELFPAY ==
--- NOTE | ~2021-11-07 | US_ITS ---
EXAMINATION: US venous doppler UE RT DATE: 11/07/2021 14:57 INDICATION: Swelling and warmth at the right upper limb TECHNIQUE: Grayscale images without and with compression and Doppler images of the right upper extrem ity veins were obtained. COMPARISON: None. FINDINGS: There is noncompressible thrombus in the mid to distal right cephalic vein. The right internal jugula r vein, subclavian vein, axillary vein, brachial vein, basilic vein, radial vein, and ulnar vein are patent. IMPRESSION: 1. Venous thrombosis of the mid to distal right cephalic vein. Reviewed, dictated and finalized at location A.
[2021-11-07 13:53] VITALS: BP 125/76; PULSE 59; RESP 16; TEMP 36.4; O2SAT 98
--- NOTE | 2021-11-07 14:42 | ED.UPPEXIN ---
HPI - Extremity Injury (Upper) General Chief Complaint: Extremity Injury, Upper Stated Complaint: have DVT in my arm Time Seen by Provider: 11/07/21 14:42 Source: patient Mode of arrival: ambulatory Limitations: no limitations History of Present Illness HPI narrative: Patient is an 81-year-old female with a history of chronic kidney disease, paroxysmal atrial fibrillation, acid reflux, aortic valve regurgitation, congestive heart failure, hypertension, lung malignancy status post radiation therapy, presenting to the emergency department for evaluation of right upper extremity swelling. Patient with recent admission to the hospital for possible urinary tract infection and A. fib with RVR, ultimately discharged home, declined antiarrhythmics and anticoagulation per chart review from product examiner and hospitalist service. Patient returns today for swelling, redness at right upper extremity near to where her IV site was. Patient states it has been present over the past few days. She reports mild pain at the site. No decrease in strength. No numbness. Patient denies any chest pain or shortness of breath. No fever, chills, cough or hemoptysis. She reports chronic bilateral lower extremity edema without calf pain, unilateral swelling, redness. Related Data Home Medications Medication Instructions Recorded Confirmed diltiazem HCl [Tiadylt ER] 120 mg PO QAM 07/13/21 10/31/21 losartan 100 mg PO QAM 07/13/21 10/31/21 Emergen-C 1 tablet PO BID 10/31/21 10/31/21 citalopram 20 mg PO DAILY 10/31/21 10/31/21 doxycycline hyclate 100 mg PO DAILY 10/31/21 10/31/21 melatonin 3 mg PO HS 10/31/21 10/31/21 Allergies Allergy/AdvReac Type Severity Reaction Status Date / Time Penicillins Allergy Severe Hives Verified 10/31/21 17:19 nitrofurantoin Allergy Intermediate Hives Verified 10/31/21 17:19 [From Macrobid] Quinolones Allergy Mild Unknown Verified 10/31/21 17:19 cefprozil Allergy Unknown Unknown Verified 10/31/21 17:19 cefuroxime Allergy Unknown Unknown Verified 10/31/21 17:19 Cephalosporins Allergy Unknown Unknown Verified 10/31/21 17:19 gatifloxacin Allergy Unknown Unknown Verified 10/31/21 17:19 metronidazole Allergy Unknown Unknown Verified 10/31/21 17:19 erythromycin base AdvReac Unknown Stomach Verified 10/31/21 17:19 cramps loratadine [From Claritin] AdvReac Unknown Jittery Verified 10/31/21 17:19 Review of Systems Review of Systems: CONSTITUTIONAL: Denies fever, chills, or sweats. EYES: Denies visual changes, redness, or discharge. ENT: Denies rhinorrhea, congestion, sore throat, or otalgia. CARDIOVASCULAR: Denies chest pain, palpitations, or edema. RESPIRATORY: Denies cough or dyspnea. GASTROINTESTINAL: Denies abdominal pain, nausea, vomiting, or diarrhea. GENITOURINARY: Denies dysuria or hematuria. SKIN: Denies rash or itching. MUSCULOSKELETAL: Denies back pain, joint pain, reports right upper extremity swelling, redness NEUROLOGIC: Denies headache, numbness, or weakness. [facility] Past Medical History Medical History Anxiety Aortic valve regurgitation Moderate by echocardiogram in October [address]. [address] Velasco. Arthritis Benzodiazepine dependence BMI 28.0-28.9,adult BMI 29.0-29.9,adult Bronchiectasis Prior imaging demonstrated bronchiectasis in bilateral lower lobes with chronic scarring. Chronic kidney disease, stage 3 Baseline creatinine between 1.20 and 1.40. Chronic midline low back pain with sciatica Dementia Reported by daughter, however the patient disputes this. Depression Diverticulitis Gastroesophageal reflux disease Hyperlipidemia Hypertension Nausea Obstructive sleep apnea Paroxysmal atrial fibrillation She has declined anticoagulation and antiarrhythmics previously but is now on metoprolol daily. She is followed by Dr. Velasco. Surgical History Surgical History History of append
--- NOTE | 2021-11-07 16:17 | PCCCNOTE ---
Called by generation manager Susie to yeager check Eliquis Starter Pack for patient. Eliquis 10mg BID for 7days, then 5mg daily thereafter. Called to [facility] on [address] at [phone]. Prescription ran through insurance as starter pack and will cost 42 dollars, they will have to order it and starter pack will be available tomorrow. If escript is sent in by 7:30pm they will have it tomorrow. Went to ED notified Dr. Whiting that starter pack will cost 42 dollars and they will have to order it for tomorrow asked about escript but patient had wanted paper copy to take to pharmacy. business services coordinator to call since starter pack needs ordered. 30 Day Trial Card provided to Bedside RNXiao. Called to pharmacy spoke with Lin, Ordered 30 Day Eliquis Starter Pack/ Confirmed with Lin that this starter pack is: 10mg BID for 7 days then 5mg daily thereafter, Dr. Yane Whiting .
[2021-11-07] MEDS: APIXABAN 5 MG TABLET 10 MG PO (16:18)
== END 2021-11-07 16:20 | disposition home or self-care (01) ==
PROVIDERS: Emergency Provider Emergency Medicine; PCP Family Medicine
DX: I82.611 Acute embolism and thrombosis of superficial veins of right upper extremity (principal); C34.90 Malignant neoplasm of unspecified part of unspecified bronchus or lung; I48.0 Paroxysmal atrial fibrillation; N18.30 Chronic kidney disease, stage 3 unspecified; I13.0 Hypertensive heart and chronic kidney disease with heart failure and stage 1 through stage 4 chronic kidney disease, or unspecified chronic kidney disease; I50.9 Heart failure, unspecified; I35.1 Nonrheumatic aortic (valve) insufficiency; E78.5 Hyperlipidemia, unspecified; M19.90 Unspecified osteoarthritis, unspecified site; K21.9 Gastro-esophageal reflux disease without esophagitis; G47.33 Obstructive sleep apnea (adult) (pediatric); Z98.49 Cataract extraction status, unspecified eye; Z92.3 Personal history of irradiation
CPT/HCPCS: 93971; 99284; A9270

== ENCOUNTER 2021-12-04 16:26 | Emergency (ER) | payer MEDICARE, SELFPAY ==
--- NOTE | ~2021-12-04 | XR_ITS ---
EXAM: XR lumbar spine 2-3V HISTORY: LOW BACK PAIN 2-3 DAYS, ONSET LIFTING GRANDSON COMPARISON: None available FINDINGS: Osteopenia. 5 nonrib-bearing lumbar-type vertebral bodies. Exaggerated lumbar lordosis. Gr cornelio 1 retrolisthesis of L4 on L5, stable. Vertebral body heights are maintained. Abdominal aortic mu cification, without aneurysm. Cholecystectomy clips. Multilevel degenerative disc disease and facet a rthropathy. IMPRESSION: No acute fracture or traumatic malalignment detected in the lumbar spine. Reviewed, dictated and finalized at location K.
[2021-12-04 16:29] VITALS: BP 206/95; PULSE 66; RESP 18; TEMP 36.8; O2SAT 100
--- NOTE | 2021-12-04 16:54 | ED.BACK ---
HPI - Back Pain/Injury General Chief Complaint: Back Pain/Injury Stated Complaint: lower back Time Seen by Provider: 12/04/21 16:34 Source: patient History of Present Illness HPI Narrative: Patient presents with low back pain. Is been present for approximately 3 to 4 days achy, constant, no radiation worse with moving her torso. Reports symptoms started after picking up her 6-year-old grandson. She doctor primary care doctor and reports she was concern for may be a kidney infection was started on Bactrim. Patient denies any urinary symptoms, fevers. Denies any focal numbness or weakness Related Data Home Medications Medication Instructions Recorded Confirmed diltiazem HCl [Tiadylt ER] 120 mg PO QAM 07/13/21 10/31/21 losartan 100 mg PO QAM 07/13/21 10/31/21 Emergen-C 1 tablet PO BID 10/31/21 10/31/21 citalopram 20 mg PO DAILY 10/31/21 10/31/21 doxycycline hyclate 100 mg PO DAILY 10/31/21 10/31/21 melatonin 3 mg PO HS 10/31/21 10/31/21 Allergies Allergy/AdvReac Type Severity Reaction Status Date / Time Penicillins Allergy Severe Hives Verified 12/04/21 16:34 nitrofurantoin Allergy Intermediate Hives Verified 12/04/21 16:34 [From Macrobid] Quinolones Allergy Mild Unknown Verified 12/04/21 16:34 cefprozil Allergy Unknown Unknown Verified 12/04/21 16:34 cefuroxime Allergy Unknown Unknown Verified 12/04/21 16:34 Cephalosporins Allergy Unknown Unknown Verified 12/04/21 16:34 gatifloxacin Allergy Unknown Unknown Verified 12/04/21 16:34 metronidazole Allergy Unknown Unknown Verified 12/04/21 16:34 erythromycin base AdvReac Unknown Stomach Verified 12/04/21 16:34 cramps loratadine [From Claritin] AdvReac Unknown Jittery Verified 12/04/21 16:34 Review of Systems Review of Systems: CONSTITUTIONAL: Denies fever, chills, or sweats. EYES: Denies visual changes, redness, or discharge. ENT: Denies rhinorrhea, congestion, sore throat, or otalgia. CARDIOVASCULAR: Denies chest pain, palpitations, or edema. RESPIRATORY: Denies cough or dyspnea. GASTROINTESTINAL: Denies abdominal pain, vomiting, or diarrhea. GENITOURINARY: Denies dysuria or hematuria. SKIN: Denies rash or itching. MUSCULOSKELETAL: Denies joint pain, or myalgia. NEUROLOGIC: Denies headache, numbness, dizziness, or weakness. PSYCHIATRIC: Denies anxiety or depression. All systems reviewed & are unremarkable except as noted in HPI and below PMFSH Past Medical History Medical History Anxiety Aortic valve regurgitation Moderate by echocardiogram in October 2018. Followed by Dr. Velasco. Arthritis Benzodiazepine dependence BMI 28.0-28.9,adult BMI 29.0-29.9,adult Bronchiectasis Prior imaging demonstrated bronchiectasis in bilateral lower lobes with chronic scarring. Chronic kidney disease, stage 3 Baseline creatinine between 1.20 and 1.40. Chronic midline low back pain with sciatica Dementia Reported by daughter, however the patient disputes this. Depression Diverticulitis Gastroesophageal reflux disease Hyperlipidemia Hypertension Nausea Obstructive sleep apnea Paroxysmal atrial fibrillation She has declined anticoagulation and antiarrhythmics previously but is now on metoprolol daily. She is followed by Dr. Velasco. Surgical History Surgical History History of appendectomy History of cardiac catheterization No known intervention. History of cataract surgery History of cholecystectomy History of tooth extraction Status post appendectomy Status post cataract extraction Status post hysterectomy Status post tubal ligation Family History Family History Father Acute myocardial infarction Family history of alcoholism Gout Tobacco abuse Mother Family history of alcoholism Sibling Acute myocardial infarction Heart disease Sibling Brain aneurysm D
[2021-12-04] MEDS: IBUPROFEN 400 MG TABLET PO (16:57)
[2021-12-04] MEDS: ACETAMINOPHEN 500 MG TABLET 1000 MG PO (16:58)
[2021-12-04 17:01] VITALS: BP 157/79; PULSE 60; RESP 16; O2SAT 96
[2021-12-04 17:08] LABS: Basophils Absolute Auto 0.1 K/mm3 (0.0-0.1); Basophils Percent Auto 0.5 % (0.2-1.2); Eosinophils Absolute Auto 0.3 K/mm3 (0-0.3); Eosinophils Percent Auto 3.3 % (0-4.4); Hematocrit 38.1 % (37.0-47.0); Hemoglobin 12.4 g/dL (12.0-15.0); Immature Granulocyte Absolute 0.02 K/mm3 (0.00-0.031); Immature Granulocyte Percent A 0.2 % (0-0.5); Lymphocytes Absolute Auto 1.59 K/mm3 (0.9-3.2); Lymphocytes Percent Auto 17.4 % (18.3-44.2); Mean Corpuscular HGB Conc 32.5 g/dl (32-36); Mean Corpuscular Hemoglobin 30.8 pg (26-34); Mean Corpuscular Volume 94.5 fl (80-100); Mean Platelet Volume 10.3 fl (7.4-10.4); Monocytes Absolute Auto 0.7 K/mm3 (0.1-0.6); Monocytes Percent Auto 7.5 % (2.6-8.5); Neutrophils Absolute Auto 6.5 K/mm3 (1.3-6.7); Neutrophils Percent Auto 71.1 % (45.5-73.1); Platelet Count Result 220 k/mm3 (150-375); Red Blood Count 4.03 M/mm3 (4.2-5.4); White Blood Count 9.2 K/mm3 (4.5-10.0)
--- NOTE | 2021-12-04 17:08 | PC.NURSE ---
Pt to CT scan via stretcher at this time.
[2021-12-04 17:13] LABS: Add Urine Microscopic? YES; Appearance Urine Clear (Clear); Bilirubin Urine Negative (Negative); Blood Urine Negative (Negative); Color Urine Straw (Yellow); Glucose Urine UA Negative (Negative); Ketones Urine Negative (Negative); Leukocyte Esterase Ur Trace LEU/UL (Negative); Mucus Urine Rare /lpf; Nitrate Urine Negative (Negative); Protein Urine Negative (Negative); RBC Urine 0-2 /hpf (0-2); Specific Grav Ur 1.006 (1.001-1.035); Squamous Epithelial Cell Urine Rare /hpf (Few); Urobilinogen Urine Negative mg/dL (<2.0)
[2021-12-04 17:17] LABS: Alanine Aminotransferase 12 U/L (4-35); Albumin Level 4.2 g/dL (3.5-5.1); Alkaline Phosphatase 95 U/L (38-126); Anion Gap 8 mmol/L (8-16); Aspartate Amino Transferase 24 U/L (14-36); Bilirubin,Total 0.6 mg/dL (0.2-1.3); Blood Urea Nitrogen 10 mg/dL (7-17); Calcium 9.2 mg/dL (8.4-10.2); Carbon Dioxide 24 mmol/L (22-30); Chloride 107 mmol/L (98-107); Estimated Glomerular Filt Rate 36; Glucose 102 mg/dL (65-110); Potassium 4.1 mmol/L (3.4-5.0); Sodium 139 mmol/L (137-145)
[2021-12-04] MEDS: ONDANSETRON HCL ODT 4 MG TABLET PO (17:43)
== END 2021-12-04 17:51 | disposition home or self-care (01) ==
PROVIDERS: Emergency Provider Emergency Medicine; PCP Family Medicine
DX: M54.50 Low back pain, unspecified (principal); I48.0 Paroxysmal atrial fibrillation; N18.30 Chronic kidney disease, stage 3 unspecified; I12.9 Hypertensive chronic kidney disease with stage 1 through stage 4 chronic kidney disease, or unspecified chronic kidney disease; I35.1 Nonrheumatic aortic (valve) insufficiency; E78.5 Hyperlipidemia, unspecified; M19.90 Unspecified osteoarthritis, unspecified site; K21.9 Gastro-esophageal reflux disease without esophagitis; G47.33 Obstructive sleep apnea (adult) (pediatric); Z98.49 Cataract extraction status, unspecified eye
CPT/HCPCS: 36415; 72100; 80053; 81001; 85025; 99283; A9270

== ENCOUNTER 2021-12-31 10:25 | Outpatient (CLI) | payer MEDICARE, SELFPAY ==
--- NOTE | ~2021-12-31 | CT_ITS ---
EXAMINATION: CT diagnostic chest w con DATE: 12/31/2021 11:04 INDICATION: Non-small cell lung cancer TECHNIQUE: Transaxial computed tomographic images of the chest were obtained after the administration of 75 cc of Omnipaque 350 intravenous contrast. The dose-length product (DLP) was 163.74 mGy-cm. Ite rative reconstruction was used. COMPARISON: 07/19/2021 FINDINGS: There is increasing airspace opacity in the left upper lobe at the site of the previously b iopsied lung adenocarcinoma. There is a stable 4 mm nodule of the left lower lobe. There is no pleura l effusion or pneumothorax. No pathologically enlarged thoracic lymph nodes are identified. The heart size is normal. There is calcified coronary artery atherosclerosis. There is severe thoracic spondyl osis. The gallbladder is surgically absent. IMPRESSION: 1. Increasing airspace opacity in the left upper lobe at the site of previously biopsied lung adenoca rcinoma. Findings could reflect treatment change or possibly worsening malignancy. Reviewed, dictated and finalized at location B. IMPRESSION: 1. Increasing airspace opacity in the left upper lobe at the site of previously biopsied lung adenocarcinoma. Findings could reflect treatment change or possi vandana worsening malignancy.
== END 2021-12-31 10:26 | disposition home or self-care (01) ==
PROVIDERS: PCP Family Medicine; Visit Provider Internal Medicine Hematology & Oncology
DX: C34.90 Malignant neoplasm of unspecified part of unspecified bronchus or lung (principal); R91.8 Other nonspecific abnormal finding of lung field
CPT/HCPCS: 71260; Q9967

== ENCOUNTER 2022-01-01 12:30 | Emergency (ER) | payer MEDICARE, SELFPAY ==
--- NOTE | ~2022-01-01 | CT_ITS ---
EXAMINATION: CT abdomen pelvis wo con DATE: 01/01/2022 14:14 INDICATION: Left flank pain, history of non-small cell lung cancer TECHNIQUE: Computed tomography (CT) of the abdomen and pelvis was performed without intravenous contr ast. The dose-length product (DLP) was 514.06 mGy-cm. Automated exposure control and iterative recons truction technique were employed. COMPARISON: 10/19/2020 FINDINGS: There is a is stable 4 mm nodule of the left lower lobe. The gallbladder is surgically abse nt. There is mild enlargement of the common bile duct and central intrahepatic ducts which is likely due to post cholecystectomy state. Punctate calcifications in an otherwise normal spleen likely repre sent healed granulomatous disease. The liver, pancreas, gallbladder, and adrenal glands are normal. N o stones are identified in the kidneys, ureters, or bladder. There is no hydronephrosis or hydrourete r. There is calcified atherosclerosis of the aorta and many of the other arteries. No pathologically enlarged abdominal or pelvic lymph nodes are identified. There is unchanged severe lumbar spondylosis . IMPRESSION: 1. No CT correlate for the patient's symptoms. Reviewed, dictated and finalized at location A.
[2022-01-01 12:31] VITALS: BP 166/62; PULSE 56; RESP 18; TEMP 36.5; O2SAT 99
--- NOTE | 2022-01-01 13:02 | PC.NURSE ---
POOJA strauss was reportedly in room to evaluate pt while pt was using restroom. POOJA was called via [employer] at time of return to room, states he will come see her.
[2022-01-01 13:19] LABS: Appearance Urine Clear (Clear); Bilirubin Urine Negative (Negative); Blood Urine Trace-lysed (Negative); Color Urine Yellow (Yellow); Glucose Urine UA Negative (Negative); Ketones Urine Negative (Negative); Leukocyte Esterase Ur Negative LEU/UL (Negative); Nitrate Urine Negative (Negative); Protein Urine Negative (Negative); Specific Grav Ur <= 1.005 (1.001-1.035); Urobilinogen Urine 0.2 mg/dL (<2.0); pH Urine 5.5 (5.0-9.0)
[2022-01-01 13:32] LABS: Add Urine Microscopic? YES
--- NOTE | 2022-01-01 13:32 | PC.NURSE ---
Pt requesting ERP to see her. ERP made aware.
[2022-01-01 13:43] LABS: Bacteria Urine Trace /hpf; RBC Urine 0-2 /hpf (0-2); Squamous Epithelial Cell Urine Rare /hpf (Few); WBC Urine 0-3 /hpf
--- NOTE | 2022-01-01 13:46 | PC.NURSE ---
POOJA strauss at bedside to see pt.
--- NOTE | 2022-01-01 13:52 | ED.BACK ---
HPI - Back Pain/Injury General Chief Complaint: Back Pain/Injury Stated Complaint: back pain Time Seen by Provider: 01/01/22 12:47 Source: patient and family Mode of arrival: ambulatory Limitations: no limitations History of Present Illness HPI Narrative: Patient is 81 years old white female presents with pain across lumbar area mainly at the left flank area. Started 4 days ago. Patient had similar symptoms 4 weeks ago got better with Tylenol, currently Tylenol is not working. History of hypertension, hyperlipidemia and lung cancer, on chemotherapy and radiation therapy. Patient has CT scan of the chest yesterday which showed increasing airspace opacity in the left upper lobe at the site of previously biopsied lung adenocarcinoma. Finding could reflect a treatment change or possibly worsening malignancy. She denied fever, chills, nausea, vomiting, diarrhea, constipation, urinary symptoms. Related Data Home Medications Medication Instructions Recorded Confirmed Emergen-C 1 tablet PO BID 10/31/21 01/01/22 doxycycline hyclate 100 mg PO DAILY 10/31/21 01/01/22 melatonin 3 mg PO HS 10/31/21 01/01/22 Allergies Allergy/AdvReac Type Severity Reaction Status Date / Time Penicillins Allergy Severe Hives Verified 12/20/21 07:48 nitrofurantoin Allergy Intermediate Hives Verified 12/20/21 07:48 [From Macrobid] Quinolones Allergy Mild Unknown Verified 12/20/21 07:48 cefprozil Allergy Unknown Unknown Verified 12/20/21 07:48 cefuroxime Allergy Unknown Unknown Verified 12/20/21 07:48 Cephalosporins Allergy Unknown Unknown Verified 12/20/21 07:48 gatifloxacin Allergy Unknown Unknown Verified 12/20/21 07:48 metronidazole Allergy Unknown Unknown Verified 12/20/21 07:48 erythromycin base AdvReac Unknown Stomach Verified 12/20/21 07:48 cramps loratadine [From Claritin] AdvReac Unknown Jittery Verified 12/20/21 07:48 Review of Systems Review of Systems: All systems reviewed & are unremarkable except as noted in HPI and below PMFSH Past Medical History Medical History Anxiety Aortic valve regurgitation Moderate by echocardiogram in October 2018. Followed by Dr. Velasco. Arthritis Benzodiazepine dependence BMI 28.0-28.9,adult BMI 29.0-29.9,adult Bronchiectasis Prior imaging demonstrated bronchiectasis in bilateral lower lobes with chronic scarring. Chronic kidney disease, stage 3 Baseline creatinine between 1.20 and 1.40. Chronic midline low back pain with sciatica Dementia Reported by daughter, however the patient disputes this. Depression Diverticulitis Gastroesophageal reflux disease Hyperlipidemia Hypertension Nausea Obstructive sleep apnea Paroxysmal atrial fibrillation She has declined anticoagulation and antiarrhythmics previously but is now on metoprolol daily. She is followed by Dr. Velasco. Surgical History Surgical History History of appendectomy History of cardiac catheterization No known intervention. History of cataract surgery History of cholecystectomy History of tooth extraction Status post appendectomy Status post cataract extraction Status post hysterectomy Status post tubal ligation Family History Family History Father Acute myocardial infarction Family history of alcoholism Gout Tobacco abuse Mother Family history of alcoholism Sibling Acute myocardial infarction Heart disease Sibling Brain aneurysm Daughter Bowel perforation July 2020 sounds like it may have been a bowel perforation related to hernia and possibly some diabetic problems.. Daughter Heart disease age 35 of heart attack Acute myocardial infarction Daughter COVID-19 Cyst of breast Social History Social History Social Hist
[2022-01-01] MEDS: ONDANSETRON INJ 4 MG/2 ML VIAL IV PUSH (13:59)
[2022-01-01] MEDS: HYDROmorphone HCL INJ (*CRX) 1 MG/ML SYR 0.5 MG IV PUSH (13:59)
[2022-01-01 14:03] LABS: Basophils Absolute Auto 0.1 K/mm3 (0.0-0.1); Basophils Percent Auto 0.6 % (0.2-1.2); Eosinophils Absolute Auto 0.4 K/mm3 (0-0.3); Eosinophils Percent Auto 3.9 % (0-4.4); Hematocrit 39.6 % (37.0-47.0); Hemoglobin 12.6 g/dL (12.0-15.0); Immature Granulocyte Absolute 0.04 K/mm3 (0.00-0.031); Immature Granulocyte Percent A 0.4 % (0-0.5); Lymphocytes Absolute Auto 1.91 K/mm3 (0.9-3.2); Lymphocytes Percent Auto 20.5 % (18.3-44.2); Mean Corpuscular HGB Conc 31.8 g/dl (32-36); Mean Corpuscular Hemoglobin 30.5 pg (26-34); Mean Corpuscular Volume 95.9 fl (80-100); Mean Platelet Volume 10.5 fl (7.4-10.4); Monocytes Absolute Auto 0.7 K/mm3 (0.1-0.6); Monocytes Percent Auto 7.3 % (2.6-8.5); Neutrophils Absolute Auto 6.3 K/mm3 (1.3-6.7); Neutrophils Percent Auto 67.3 % (45.5-73.1); Platelet Count Result 236 k/mm3 (150-375); Red Blood Count 4.13 M/mm3 (4.2-5.4); Red Cell Distribution Width 14.3 % (11.5-14.5); White Blood Count 9.3 K/mm3 (4.5-10.0)
[2022-01-01 14:15] LABS: Alanine Aminotransferase 13 U/L (4-35); Albumin Level 4.3 g/dL (3.5-5.1); Alkaline Phosphatase 89 U/L (38-126); Anion Gap 6 mmol/L (8-16); Aspartate Amino Transferase 28 U/L (14-36); Bilirubin,Total 0.6 mg/dL (0.2-1.3); Blood Urea Nitrogen 13 mg/dL (7-17); Calcium 9.4 mg/dL (8.4-10.2); Carbon Dioxide 28 mmol/L (22-30); Chloride 106 mmol/L (98-107); Estimated Glomerular Filt Rate 53; Glucose 109 mg/dL (65-110); Potassium 4.3 mmol/L (3.4-5.0); Sodium 140 mmol/L (137-145)
[2022-01-01 14:31] VITALS: BP 145/71; PULSE 53; RESP 18; O2SAT 98
[2022-01-01 15:25] VITALS: PULSE 61; RESP 18; O2SAT 98
== END 2022-01-01 15:26 | disposition home or self-care (01) ==
PROVIDERS: Emergency Provider Emergency Medicine; PCP Family Medicine
DX: M54.50 Low back pain, unspecified (principal); C34.92 Malignant neoplasm of unspecified part of left bronchus or lung; E78.5 Hyperlipidemia, unspecified; I35.1 Nonrheumatic aortic (valve) insufficiency; I12.9 Hypertensive chronic kidney disease with stage 1 through stage 4 chronic kidney disease, or unspecified chronic kidney disease; N18.30 Chronic kidney disease, stage 3 unspecified; I48.0 Paroxysmal atrial fibrillation; K21.9 Gastro-esophageal reflux disease without esophagitis; G47.33 Obstructive sleep apnea (adult) (pediatric); M19.90 Unspecified osteoarthritis, unspecified site; F41.9 Anxiety disorder, unspecified; Z98.49 Cataract extraction status, unspecified eye; Z79.82 Long term (current) use of aspirin; Z79.01 Long term (current) use of anticoagulants; Z79.899 Other long term (current) drug therapy
CPT/HCPCS: 36415; 74176; 80053; 81001; 85025; 96374; 96375; 99284; J1170; J2405

== ENCOUNTER 2022-02-13 12:43 | Emergency (ER) | payer MEDICARE, SELFPAY ==
[2022-02-13 12:44] VITALS: BP 176/66; PULSE 58; RESP 16; TEMP 36.4; O2SAT 98
[2022-02-13] MEDS: KETOROLAC 30 MG/ML VIAL (*BKC) IM (13:51)
--- NOTE | 2022-02-13 14:35 | ED.BACK ---
HPI - Back Pain/Injury General Chief Complaint: Back Pain/Injury Stated Complaint: back pain Time Seen by Provider: 02/13/22 12:56 History of Present Illness HPI Narrative: Patient is an 82-year-old female who presents ER with low back pain. Ongoing over the last 2 days. No recent injury or trauma. She has not been lifting anything heavy. Radiates into her thighs which is typical of her back pain. Has chronic back issues. No saddle anesthesia or difficulty with urination/defecation. No fevers or chills or sweats. Has been taking Tylenol for her discomfort. Patient reports she drinks 2 glasses of water a day but otherwise drinks tea. Related Data Home Medications Medication Instructions Recorded Confirmed doxycycline hyclate 100 mg tablet 100 mg PO DAILY 10/31/21 01/01/22 melatonin 3 mg tablet 3 mg PO HS 10/31/21 01/01/22 vitamin C 500 mg-multivitamin with 1 tablet PO BID 10/31/21 01/01/22 minerals chewable tablet (Emergen-C) Allergies Allergy/AdvReac Type Severity Reaction Status Date / Time Penicillins Allergy Severe Hives Verified 12/20/21 07:48 nitrofurantoin Allergy Intermediate Hives Verified 12/20/21 07:48 [From Macrobid] Quinolones Allergy Mild Unknown Verified 12/20/21 07:48 cefprozil Allergy Unknown Unknown Verified 12/20/21 07:48 cefuroxime Allergy Unknown Unknown Verified 12/20/21 07:48 Cephalosporins Allergy Unknown Unknown Verified 12/20/21 07:48 gatifloxacin Allergy Unknown Unknown Verified 12/20/21 07:48 metronidazole Allergy Unknown Unknown Verified 12/20/21 07:48 erythromycin base AdvReac Unknown Stomach Verified 12/20/21 07:48 cramps loratadine [From Claritin] AdvReac Unknown Jittery Verified 12/20/21 07:48 Review of Systems Review of Systems: All systems reviewed & are unremarkable except as noted in HPI and below Constitutional: Constitutional: Denies chills, Denies fatigue and Denies fever(s) Gastrointestinal: Gastrointestinal: Denies abdominal pain, Denies nausea and Denies vomiting Genitourinary: Genitourinary: Denies nocturia, Denies dysuria and Denies flank pain Musculoskeletal: Musculoskeletal: Reports back pain, Denies arthralgias and Denies joint swelling Neurologic: Denies focal weakness and Denies numbness [facility] Past Medical History Medical History Anxiety Aortic valve regurgitation Moderate by echocardiogram in October 2018. Followed by Dr. Velasco. Arthritis Benzodiazepine dependence BMI 28.0-28.9,adult BMI 29.0-29.9,adult Bronchiectasis Prior imaging demonstrated bronchiectasis in bilateral lower lobes with chronic scarring. Chronic kidney disease, stage 3 Baseline creatinine between 1.20 and 1.40. Chronic midline low back pain with sciatica Dementia Reported by daughter, however the patient disputes this. Depression Diverticulitis Gastroesophageal reflux disease Hyperlipidemia Hypertension Nausea Obstructive sleep apnea Paroxysmal atrial fibrillation She has declined anticoagulation and antiarrhythmics previously but is now on metoprolol daily. She is followed by Dr. Velasco. Surgical History Surgical History History of appendectomy History of cardiac catheterization No known intervention. History of cataract surgery History of cholecystectomy History of tooth extraction Status post appendectomy Status post cataract extraction Status post hysterectomy Status post tubal ligation Family History Family History Father Acute myocardial infarction Family history of alcoholism Gout Tobacco abuse Mother Family history of alcoholism Sibling Acute myocardial infarction Heart disease Sibling Brain aneurysm Daughter Bowel perforation July 2020 sounds like it may have been a bowel perforation related to hernia and possibly some diabeti
[2022-02-13 14:50] VITALS: BP 137/76; PULSE 52; RESP 16; O2SAT 98
== END 2022-02-13 14:50 | disposition home or self-care (01) ==
PROVIDERS: Emergency Provider Emergency Medicine; PCP Family Medicine
DX: M54.42 Lumbago with sciatica, left side (principal); M54.41 Lumbago with sciatica, right side; I35.1 Nonrheumatic aortic (valve) insufficiency; I48.0 Paroxysmal atrial fibrillation; I12.9 Hypertensive chronic kidney disease with stage 1 through stage 4 chronic kidney disease, or unspecified chronic kidney disease; N18.30 Chronic kidney disease, stage 3 unspecified; E78.5 Hyperlipidemia, unspecified; M19.90 Unspecified osteoarthritis, unspecified site; K21.9 Gastro-esophageal reflux disease without esophagitis; Z98.49 Cataract extraction status, unspecified eye
CPT/HCPCS: 96372; 99283; J1885

== ENCOUNTER 2022-02-17 14:33 | Outpatient (RCR) | payer MEDICARE, SELFPAY ==
[2022-02-17] MEDS: ACETAMINOPHEN 325 MG TABLET 650 MG PO (15:04)
[2022-02-17] MEDS: FAMOTIDINE 20 MG TABLET PO (15:04)
[2022-02-17] MEDS: diphenhydrAMINE HCl CAP 25 MG CAPSULE PO (15:04)
[2022-02-17] MEDS: BEBTELOVIMAB 175 MG/2 ML VIAL IV PUSH (15:30)
[2022-02-17 15:36] VITALS: BP 131/46; PULSE 59; RESP 18; TEMP 39.1; O2SAT 97
[2022-02-17 16:04] VITALS: BP 136/47; PULSE 59; RESP 20; TEMP 38.8; O2SAT 95
== END 2022-02-17 16:00 ==
LOC: AMCINF 14:33
PROVIDERS: PCP Family Medicine; Referring Provider Family Medicine; Visit Provider Internal Medicine Hematology & Oncology
DX: U07.1 COVID-19 (principal); I12.9 Hypertensive chronic kidney disease with stage 1 through stage 4 chronic kidney disease, or unspecified chronic kidney disease; N18.9 Chronic kidney disease, unspecified; J44.9 Chronic obstructive pulmonary disease, unspecified
CPT/HCPCS: A9270; M0222; Q0222

== ENCOUNTER 2022-02-18 14:25 | Emergency (ER) | payer MEDICARE, SELFPAY ==
[2022-02-18 14:42] VITALS: BP 106/61; PULSE 77; RESP 18; TEMP 36.2; O2SAT 96
--- NOTE | 2022-02-18 15:49 | ED.GENADULT ---
HPI - General Adult General Chief complaint: Nausea/Vomiting/Diarrhea Stated complaint: covid positive, diarrhea Time Seen by Provider: 02/18/22 15:23 Source: patient Mode of arrival: ambulatory Limitations: no limitations History of Present Illness HPI narrative: Patient is an 82-year-old female who presents the ED with report of diarrhea. Patient was diagnosed with COVID-19 at an urgent care several days ago. She received an outpatient monoclonal antibody treatment yesterday. She states she felt well after the treatment, but then developed diarrhea last night. She reported multiple episodes of diarrhea, accompanied with some nausea. No vomiting. She states she felt somewhat weak due to the diarrhea. Denied any blood. Denied any abdominal pain. She did have persistent diarrhea today, but took [id number] Imodium and Pepto-Bismol this morning. She states diarrhea has improved, but she wanted to be evaluated. No diarrhea since being in the ED. Denies any fever, chills, dysuria, hematuria, chest pain, difficulty breathing. Related Data Home Medications Medication Instructions Recorded Confirmed doxycycline hyclate 100 mg tablet 100 mg PO DAILY 10/31/21 02/17/22 melatonin 3 mg tablet 3 mg PO HS 10/31/21 02/17/22 vitamin C 500 mg-multivitamin with 1 tablet PO BID 10/31/21 02/17/22 minerals chewable tablet (Emergen-C) Allergies Allergy/AdvReac Type Severity Reaction Status Date / Time Penicillins Allergy Severe Hives Verified 02/18/22 15:39 nitrofurantoin Allergy Intermediate Hives Verified 02/18/22 15:39 [From Macrobid] Quinolones Allergy Mild Unknown Verified 02/18/22 15:39 cefprozil Allergy Unknown Unknown Verified 02/18/22 15:39 cefuroxime Allergy Unknown Unknown Verified 02/18/22 15:39 Cephalosporins Allergy Unknown Unknown Verified 02/18/22 15:39 gatifloxacin Allergy Unknown Unknown Verified 02/18/22 15:39 metronidazole Allergy Unknown Unknown Verified 02/18/22 15:39 erythromycin base AdvReac Unknown Stomach Verified 02/18/22 15:39 cramps loratadine [From Claritin] AdvReac Unknown Jittery Verified 02/18/22 15:39 Review of Systems Review of Systems: CONSTITUTIONAL: Denies fever, chills. CARDIOVASCULAR: Denies chest pain. RESPIRATORY: Reports cough. Denies dyspnea. GASTROINTESTINAL: Reports nausea, diarrhea. Denies abdominal pain, vomiting, or rectal bleeding. GENITOURINARY: Denies dysuria or hematuria. MUSCULOSKELETAL: Denies back pain. NEUROLOGIC: Reports generalized weakness. Denies headache, numbness, or dizziness. All systems reviewed & are unremarkable except as noted in HPI and below PMFSH Past Medical History Medical History Anxiety Aortic valve regurgitation Moderate by echocardiogram in October 2018. Followed by Dr. Velasco. Arthritis Benzodiazepine dependence BMI 28.0-28.9,adult BMI 29.0-29.9,adult Bronchiectasis Prior imaging demonstrated bronchiectasis in bilateral lower lobes with chronic scarring. Chronic kidney disease, stage 3 Baseline creatinine between 1.20 and 1.40. Chronic midline low back pain with sciatica Dementia Reported by daughter, however the patient disputes this. Depression Diverticulitis Gastroesophageal reflux disease Hyperlipidemia Hypertension Nausea Obstructive sleep apnea Paroxysmal atrial fibrillation She has declined anticoagulation and antiarrhythmics previously but is now on metoprolol daily. She is followed by Dr. Velasco. Surgical History Surgical History History of appendectomy History of cardiac catheterization No known intervention. History of cataract surgery History of cholecystectomy History of tooth extraction Status post appendectomy Status post cataract extraction Status post hysterectomy Status post tubal ligation Family History Family History Father Acute myocardial i
[2022-02-18 16:38] LABS: Basophils Percent Auto 0.6 % (0.2-1.2); Hematocrit 36.3 % (37.0-47.0); Hemoglobin 11.9 g/dL (12.0-15.0); Immature Granulocyte Absolute 0.01 K/mm3 (0.00-0.031); Immature Granulocyte Percent A 0.2 % (0-0.5); Lymphocytes Absolute Auto 1.28 K/mm3 (0.9-3.2); Lymphocytes Percent Auto 26.5 % (18.3-44.2); Mean Corpuscular HGB Conc 32.8 g/dl (32-36); Mean Corpuscular Hemoglobin 30.3 pg (26-34); Mean Corpuscular Volume 92.4 fl (80-100); Mean Platelet Volume 10.7 fl (7.4-10.4); Monocytes Absolute Auto 0.6 K/mm3 (0.1-0.6); Neutrophils Absolute Auto 2.9 K/mm3 (1.3-6.7); Neutrophils Percent Auto 60.7 % (45.5-73.1); Platelet Count Result 167 k/mm3 (150-375); Red Blood Count 3.93 M/mm3 (4.2-5.4); Red Cell Distribution Width 14.3 % (11.5-14.5); White Blood Count 4.8 K/mm3 (4.5-10.0)
[2022-02-18 16:41] LABS: Appearance Urine Clear (Clear); Bilirubin Urine Negative (Negative); Blood Urine 1+ (Negative); Color Urine Yellow (Yellow); Glucose Urine UA Negative (Negative); Ketones Urine Negative (Negative); Leukocyte Esterase Ur Negative LEU/UL (Negative); Nitrate Urine Negative (Negative); Protein Urine Negative (Negative); Urobilinogen Urine 0.2 mg/dL (<2.0)
[2022-02-18] MEDS: SODIUM CHLORIDE 0.9% IV 500 ML 999 ML IV CONT (16:45)
[2022-02-18 16:48] LABS: Alanine Aminotransferase 28 U/L (6-35); Albumin Level 3.8 g/dL (3.5-5.1); Alkaline Phosphatase 71 U/L (38-126); Anion Gap 10 mmol/L (8-16); Aspartate Amino Transferase 77 U/L (14-36); Bilirubin,Total 0.5 mg/dL (0.2-1.3); Blood Urea Nitrogen 18 mg/dL (7-17); Calcium 8.4 mg/dL (8.4-10.2); Carbon Dioxide 22 mmol/L (22-30); Chloride 100 mmol/L (98-107); Estimated Glomerular Filt Rate 39; Glucose 127 mg/dL (65-110); Lipase 108 U/L (23-300); Potassium 3.8 mmol/L (3.4-5.0); Sodium 132 mmol/L (137-145)
[2022-02-18 17:01] LABS: Bacteria Urine Trace /hpf; Hyaline Casts Urine 20-29 /lpf; Mucus Urine Rare /lpf; RBC Urine 0-2 /hpf (0-2); Squamous Epithelial Cell Urine Rare /hpf (Few); WBC Urine 0-3 /hpf
[2022-02-18 17:02] LABS: Add Urine Microscopic? YES
[2022-02-18 18:31] VITALS: BP 110/79; PULSE 69; RESP 15; O2SAT 99
== END 2022-02-18 18:32 | disposition home or self-care (01) ==
PROVIDERS: Physician Assistant; Emergency Provider Emergency Medicine; PCP Family Medicine
DX: U07.1 COVID-19 (principal); R19.7 Diarrhea, unspecified; I12.9 Hypertensive chronic kidney disease with stage 1 through stage 4 chronic kidney disease, or unspecified chronic kidney disease; N18.30 Chronic kidney disease, stage 3 unspecified; I35.1 Nonrheumatic aortic (valve) insufficiency; E78.5 Hyperlipidemia, unspecified; G47.33 Obstructive sleep apnea (adult) (pediatric); I48.0 Paroxysmal atrial fibrillation; K21.9 Gastro-esophageal reflux disease without esophagitis; M19.90 Unspecified osteoarthritis, unspecified site; Z98.49 Cataract extraction status, unspecified eye; Z79.82 Long term (current) use of aspirin; Z79.01 Long term (current) use of anticoagulants
CPT/HCPCS: 36415; 80053; 81001; 83690; 85025; 99283; J7040

== ENCOUNTER 2022-04-13 09:17 | Outpatient (CLI) | payer MEDICARE, SELFPAY ==
--- NOTE | ~2022-04-13 | CT_ITS ---
EXAMINATION: CT diagnostic chest wo con DATE: 04/13/2022 10:02 INDICATION: Non-small cell lung cancer TECHNIQUE: Computed tomography (CT) of the chest was performed without intravenous contrast. The dose -length product (DLP) was 189.79 mGy-cm. Automated exposure control and iterative reconstruction tech [employer] were employed. COMPARISON: 12/31/2021 FINDINGS: There are stable airspace opacities of the right upper lobe. With areas of internal bronchi ectasis. A stable 4 mm nodule is present in the left lower lobe. No new pulmonary nodules or worsenin g airspace opacities are identified. No pleural effusion or pneumothorax. No pathologically enlarged thoracic lymph nodes are identified. The heart size is normal. There is calcified coronary artery ath erosclerosis. The gallbladder is surgically absent. There is severe thoracic spondylosis. IMPRESSION: 1. Stable airspace opacity and bronchiectasis of the right upper lobe, likely reflecting treatment ch neto. Reviewed, dictated and finalized at location A. IMPRESSION: 1. Stable airspace opacity and bronchiectasis of the right upper lobe, likely r eflecting treatment change.
== END 2022-04-13 09:18 | disposition home or self-care (01) ==
LOC: ANHIMG 09:19
PROVIDERS: PCP Family Medicine; Visit Provider Internal Medicine Hematology & Oncology
DX: C34.90 Malignant neoplasm of unspecified part of unspecified bronchus or lung (principal); J47.9 Bronchiectasis, uncomplicated
CPT/HCPCS: 71250

== ENCOUNTER 2022-04-20 10:01 | Outpatient (CLI) | payer MEDICARE, SELFPAY ==
[2022-04-20 10:45] VITALS: PULSE 52; O2SAT 99
[2022-04-20 10:50] VITALS: PULSE 67; O2SAT 96
[2022-04-20 11:00] VITALS: PULSE 52; O2SAT 99
--- NOTE | 2022-04-20 11:10 | HOMEO2EVAL ---
Evaluation was performed at [facility] Home Oxygen Evaluation RC: Home Oxygen (O2) Evaluation Start: 04/20/22 11:07 Freq: Status: Active Protocol: RPE Activity Type Activity Date Activity User E-sign Co-sign Detail Recorded Client Recorded Date Recorded By Document 04/20/22 10:45 DJO [id number] 04/20/22 11:10 DJO Document 04/20/22 10:50 [email or web address] [id number] 04/20/22 11:10 DJO Document 04/20/22 11:00 [email or web address] [email or web address] 04/20/22 11:10 DJO 04/20/22 04/20/22 04/20/22 10:45 10:50 11:00 Home O2 Evaluation Test Phase Resting Exercise Resting Oxygen Delivery Room Air Room Air Room Air Pulse Oximetry (90-100 %) 99 96 99 Pulse Rate (60-100 beats/min) 52 L 67 52 L Activity Tolerance Good Ambulation Distance (feet) 500 Ambulation Distance (meters) 152.39 Treatment Charges O2 Evaluation - Outpatient
--- NOTE | 2022-04-20 13:00 | WPDPFTINT ---
PFT Procedure Performed PFT Procedure Performed Spirometry with Pre/Post Bronchodilator Plethysmography (Lung Vol) Diffusing Cap (DLCO) Flow Vol Loop PFT Interpretation This is a pulmonary function test with pre and post-bronchodilator spirometry, plethysmography and diffusing capacity. The test was performed and results interpreted in accordance with the 2019 and 2005 ATS/ERS Task Force guidelines respectively using the Global Lung Function Initiative-2012 reference equations. Patient demonstrated good effort and cooperation. Reproducibility criteria were met. The quality of the pre bronchodilator spirometry maneuver was Grade A and post bronchodilator spirometry maneuver was Grade A. Of note the patient has struggled with effort and requirements of the testing. Marginal patient effort Findings: Spirometry: The contour of the inspiratory and expiratory flow tracing are normal. The pre bronchodilator FVC is 1.81 L, 89% predicted. The pre bronchodilator FEV1 is 1.73 L, 112% predicted. The pre bronchodilator FEV1: FVC ratio is 95%. The post bronchodilator FVC is 1.66 L, representing a 9% decrease. The post bronchodilator FEV1 is 1.64 L, representing a 5% decrease. The post bronchodilator FEV1: FVC ratio is 99%. Plethysmography: The total lung capacity is 4.36 L, 101% predicted. The functional residual capacity is 2.93 L, 118% predicted. The residual volume is 2.55 L, 115% predicted. Diffusing capacity: The diffusion capacity unadjusted for hemoglobin and carboxyhemoglobin is 7.4, 44% predicted. The diffusing capacity adjusted for alveolar volume is 3.60, 84% predicted. Impression: The spirometry is normal without evidence of an obstructive abnormality. There is no significant improvement after inhaling a single dose of albuterol. The lung volumes are normal. The diffusing capacity unadjusted for hemoglobin and carboxyhemoglobin is moderately decreased and normalizes when adjusted for alveolar volume. There are no prior studies for comparison
== END 2022-04-20 10:02 | disposition home or self-care (01) ==
LOC: ANHPFT 10:03
PROVIDERS: PCP Family Medicine; Visit Provider Internal Medicine Pulmonary Disease
DX: R06.09 Other forms of dyspnea (principal); U07.1 COVID-19
CPT/HCPCS: 94060; 94618; 94726; 94729

== ENCOUNTER 2022-06-20 12:23 | Emergency (ER) | payer MEDICARE, SELFPAY ==
--- NOTE | ~2022-06-20 | XR_ITS ---
EXAMINATION: XR chest 2V DATE: 06/20/2022 13:29 INDICATION: Shortness of breath. TECHNIQUE: Frontal and lateral views of the chest were obtained. COMPARISON: Chest 2 views 10/31/2021, chest CT 04/13/2022 FINDINGS: There is mild atelectasis versus scarring at the lung bases. There are airspace opacities i n right upper lobe with volume loss, consistent with radiation fibrosis. No pleural effusion or pneum othorax. The heart size is normal. Surgical clips in the right upper quadrant are likely from cholecy stectomy. IMPRESSION: 1. Airspace opacities with volume loss in right upper lobe, consistent with radiation fibrosis. 2. Mild atelectasis versus scarring at the lung bases. Reviewed, dictated and finalized at location A. IMPRESSION: 1. Airspace opacities with volume loss in right upper lobe, consistent with rad iation fibrosis. 2. Mild atelectasis versus scarring at the lung bases.
--- NOTE | 2022-06-20 12:26 | ECG_ITS ---
Measurements Intervals [place] Rate: 49 P: 22 [place]: 242 QRS: -22 QRSD: 82 T: 0 QT: 462 QTc: 420 Interpretive Statements SINUS BRADYCARDIA WITH FIRST DEGREE AV BLOCK LOW QRS VOLTAGE IN PRECORDIAL LEADS PATTERN CONSISTENT WITH PULMONARY DISEASE VOLTAGE CRITERIA FOR LVH COMPARED TO ECG 10/31/2021 17:25:50 SINUS BRADYCARDIA NOW PRESENT Electronically Signed On 06-20-2022 16:21:19 CDT by Mariano Kohli M.D.
[2022-06-20 12:28] VITALS: BP 146/55; PULSE 57; RESP 16; TEMP 36.8; O2SAT 100
[2022-06-20 13:16] LABS: Basophils Percent Auto 0.6 % (0.2-1.2); Eosinophils Absolute Auto 0.2 K/mm3 (0-0.3); Eosinophils Percent Auto 3.1 % (0-4.4); Hematocrit 39.4 % (37.0-47.0); Hemoglobin 12.7 g/dL (12.0-15.0); Immature Granulocyte Absolute 0.03 K/mm3 (0.00-0.031); Immature Granulocyte Percent A 0.4 % (0-0.5); Lymphocytes Absolute Auto 1.62 K/mm3 (0.9-3.2); Lymphocytes Percent Auto 22.7 % (18.3-44.2); Mean Corpuscular HGB Conc 32.2 g/dl (32-36); Mean Corpuscular Hemoglobin 29.7 pg (26-34); Mean Corpuscular Volume 92.3 fl (80-100); Mean Platelet Volume 10.7 fl (7.4-10.4); Monocytes Absolute Auto 0.6 K/mm3 (0.1-0.6); Monocytes Percent Auto 8.3 % (2.6-8.5); Neutrophils Absolute Auto 4.6 K/mm3 (1.3-6.7); Neutrophils Percent Auto 64.9 % (45.5-73.1); Platelet Count Result 197 k/mm3 (150-375); Red Blood Count 4.27 M/mm3 (4.2-5.4); Red Cell Distribution Width 14.1 % (11.5-14.5); White Blood Count 7.1 K/mm3 (4.5-10.0)
[2022-06-20 13:27] LABS: Alanine Aminotransferase 16 U/L (6-35); Alkaline Phosphatase 82 U/L (38-126); Anion Gap 11 mmol/L (8-16); Aspartate Amino Transferase 23 U/L (14-36); Bilirubin,Total 0.9 mg/dL (0.2-1.3); Blood Urea Nitrogen 13 mg/dL (7-17); Carbon Dioxide 25 mmol/L (22-30); Chloride 105 mmol/L (98-107); Estimated CRCL calculation 25 ml/min; Estimated Glomerular Filt Rate 39; Glucose 110 mg/dL (65-110); Potassium 3.7 mmol/L (3.4-5.0); Sodium 141 mmol/L (137-145)
[2022-06-20 13:51] VITALS: BP 157/62; PULSE 51; PULSE 54; RESP 18; O2SAT 99
--- NOTE | 2022-06-20 15:08 | ED.GENADULT ---
HPI - General Adult General Chief complaint: Weakness Stated complaint: weakness Time Seen by Provider: 06/20/22 13:51 History of Present Illness HPI narrative: This is an 82-year-old female presenting ED with chief complaint of feeling unwell. Patient says that starting yesterday she began to feel generally unwell but more specifically a headache, some weakness and some dizziness when she stands up. Patient denies chest pain, shortness of breath at rest, nausea, vomiting, diarrhea, fever, chills or abdominal pain or urinary symptoms. Patient notes that her daughter has had a viral illness over the last week. Related Data Home Medications Medication Instructions Recorded Confirmed melatonin 3 mg tablet 3 mg PO HS 10/31/21 04/18/22 sotalol 80 mg tablet 80 mg PO BID 04/18/22 04/18/22 Allergies Allergy/AdvReac Type Severity Reaction Status Date / Time Penicillins Allergy Severe Hives Verified 05/24/22 11:12 nitrofurantoin Allergy Intermediate Hives Verified 05/24/22 11:12 [From Macrobid] Quinolones Allergy Mild Unknown Verified 05/24/22 11:12 cefprozil Allergy Unknown Unknown Verified 05/24/22 11:12 cefuroxime Allergy Unknown Unknown Verified 05/24/22 11:12 Cephalosporins Allergy Unknown Unknown Verified 05/24/22 11:12 gatifloxacin Allergy Unknown Unknown Verified 05/24/22 11:12 metronidazole Allergy Unknown Unknown Verified 05/24/22 11:12 erythromycin base AdvReac Unknown Stomach Verified 05/24/22 11:12 cramps loratadine [From Claritin] AdvReac Unknown Jittery Verified 05/24/22 11:12 Review of Systems Review of Systems: CONSTITUTIONAL: Denies night sweats. EYES: No eye pain ENT: Denies rhinorrhea CARDIOVASCULAR: Denies palpitations RESPIRATORY: Denies hemoptysis GASTROINTESTINAL: Denies hematemesis GENITOURINARY: Denies hematuria. SKIN: Denies rash MUSCULOSKELETAL: Denies myalgia. NEUROLOGIC: Denies weakness. PSYCHIATRIC: Denies delusions PMFSH Past Medical History Medical History Anxiety Aortic valve regurgitation Moderate by echocardiogram in October 2018. Followed by Dr. Velasco. Arthritis Benzodiazepine dependence BMI 28.0-28.9,adult BMI 29.0-29.9,adult Bronchiectasis Prior imaging demonstrated bronchiectasis in bilateral lower lobes with chronic scarring. Chronic kidney disease, stage 3 Baseline creatinine between 1.20 and 1.40. Chronic midline low back pain with sciatica Dementia Reported by daughter, however the patient disputes this. Depression Diverticulitis Gastroesophageal reflux disease Hyperlipidemia Hypertension Nausea Obstructive sleep apnea Paroxysmal atrial fibrillation She has declined anticoagulation and antiarrhythmics previously but is now on metoprolol daily. She is followed by Dr. Velasco. Surgical History Surgical History History of appendectomy History of cardiac catheterization No known intervention. History of cataract surgery History of cholecystectomy History of tooth extraction Status post appendectomy Status post cataract extraction Status post hysterectomy Status post tubal ligation Family History Family History Father Acute myocardial infarction Family history of alcoholism Gout Tobacco abuse Mother Family history of alcoholism Sibling Acute myocardial infarction Heart disease Sibling Brain aneurysm Daughter Bowel perforation July 2020 sounds like it may have been a bowel perforation related to hernia and possibly some diabetic problems.. Daughter Heart disease age 35 of heart attack Acute myocardial infarction Daughter COVID-19 Cyst of breast Social History Social History Social History: The patient has been since 2017.
[2022-06-20 15:14] VITALS: BP 147/56; PULSE 47; RESP 15; O2SAT 99
[2022-06-20 15:15] VITALS: PULSE 48; RESP 17; O2SAT 98
[2022-06-20] MEDS: SODIUM CHLORIDE 0.9% IV 1,000 ML 999 ML IV CONT (15:15)
[2022-06-20 15:46] LABS: Influenza A QL RT-PCR Negative (Negative); Influenza B QL RT-PCR Negative (Negative); SARS-CoV-2 RNA PCR Negative
[2022-06-20 16:33] VITALS: BP 182/56; PULSE 52; RESP 17; O2SAT 97
[2022-06-20 18:04] VITALS: BP 175/55; PULSE 50; RESP 18; O2SAT 98
== END 2022-06-20 18:05 | disposition home or self-care (01) ==
PROVIDERS: Emergency Medicine; Emergency Provider Emergency Medicine; PCP Family Medicine
DX: B34.9 Viral infection, unspecified (principal); E86.0 Dehydration; R00.1 Bradycardia, unspecified; K21.9 Gastro-esophageal reflux disease without esophagitis; E78.5 Hyperlipidemia, unspecified; I10 Essential (primary) hypertension; I48.0 Paroxysmal atrial fibrillation; Z20.822 Contact with and (suspected) exposure to COVID-19
CPT/HCPCS: 36415; 71046; 80053; 85025; 87502; 93005; 96360; 99284; J7030; U0003; U0005

== ENCOUNTER 2022-07-19 09:49 | Outpatient (CLI) | payer MEDICARE, SELFPAY ==
--- NOTE | ~2022-07-19 | CT_ITS ---
EXAMINATION:CT diagnostic chest w con DATE: 07/19/2022 10:30 INDICATION: Non-small cell lung cancer unspecified laterality. TECHNIQUE: Computed tomography (CT) of the chest was performed with 75 mL Omnipaque 350 intravenous c ontrast. Automated exposure control and iterative reconstruction technique were employed. The dose-le ngth product (DLP) was 174.49 mGy-cm. COMPARISON: Chest CT 04/13/2022 FINDINGS: There are airspace opacities with volume loss in right lung upper lobe. There is chronic pe ripheral septal thickening in the lungs. A calcified right lung nodule is consistent with old granulo matous disease. No pleural effusion. Cardiomegaly is noted. No pericardial effusion. There are bermudez ry artery calcifications. There are changes of cholecystectomy. Calcifications in the spleen are con sistent with old granulomatous disease. There is moderate thoracic spondylosis. IMPRESSION: 1. Persistent airspace opacities with worsened volume loss in right upper lobe, likely changes of rad iation therapy. Reviewed, dictated and finalized at location A. AL INSURANCE ADVISER IMPRESSION: 1. Persistent airspace opacities with worsened volume loss in right upper lobe, likely changes of radiation therapy.
[2022-07-19 10:23] LABS: Estimated Glomerular Filt Rate 43
== END 2022-07-19 09:50 | disposition home or self-care (01) ==
PROVIDERS: PCP Family Medicine; Visit Provider Internal Medicine Hematology & Oncology
DX: C34.90 Malignant neoplasm of unspecified part of unspecified bronchus or lung (principal)
CPT/HCPCS: 71260; Q9967

== ENCOUNTER 2022-07-22 12:07 | Outpatient (CLI) | payer MEDICARE, SELFPAY ==
--- NOTE | ~2022-07-22 | XR_ITS ---
XR chest 2V 07/22/2022 12:27 Indication: Non-small cell lung cancer. Shortness of breath. Nausea. Procedure: 2 view chest Comparison: Comparison to multiple prior studies sequentially, with oldest reviewed study dated 06/29. Findings: There is focal consolidation of the right upper lobe with right upper lobe volume loss, lik titi changes of radiation therapy. Heart size borderline without change. Left lung clear. No significa nt effusion. No pneumothorax. No acute focal pneumonia. Impression: 1: Stable consolidation right upper lobe with volume loss, consistent with radiation therapy. No sign ificant interval change compared with 06/20/2022. Reviewed, dictated and finalized at location A. RITY CONTROL ROOM OFFICER Impression: 1: Stable consolidation right upper lobe with volume loss, consistent with radi ation therapy. No significant interval change compared with 06/20/2022.
== END 2022-07-22 12:08 | disposition home or self-care (01) ==
PROVIDERS: PCP Family Medicine; Visit Provider Physician Assistant Medical
DX: R06.09 Other forms of dyspnea (principal); R53.1 Weakness; R91.8 Other nonspecific abnormal finding of lung field
CPT/HCPCS: 71046

== ENCOUNTER 2022-07-27 11:52 | Emergency (ER) | payer MEDICARE, SELFPAY ==
[2022-07-27 12:39] VITALS: BP 147/63; PULSE 60; RESP 16; TEMP 36.8; O2SAT 99
[2022-07-27 12:55] LABS: Basophils Absolute Auto 0.1 K/mm3 (0.0-0.1); Basophils Percent Auto 0.8 % (0.2-1.2); Eosinophils Absolute Auto 0.3 K/mm3 (0-0.3); Eosinophils Percent Auto 3.9 % (0-4.4); Hematocrit 40.4 % (37.0-47.0); Hemoglobin 12.8 g/dL (12.0-15.0); Immature Granulocyte Absolute 0.03 K/mm3 (0.00-0.031); Immature Granulocyte Percent A 0.4 % (0-0.5); Lymphocytes Absolute Auto 1.84 K/mm3 (0.9-3.2); Lymphocytes Percent Auto 25.9 % (18.3-44.2); Mean Corpuscular HGB Conc 31.7 g/dl (32-36); Mean Corpuscular Hemoglobin 29.8 pg (26-34); Mean Corpuscular Volume 94.2 fl (80-100); Mean Platelet Volume 10.3 fl (7.4-10.4); Monocytes Absolute Auto 0.6 K/mm3 (0.1-0.6); Monocytes Percent Auto 7.9 % (2.6-8.5); Neutrophils Absolute Auto 4.3 K/mm3 (1.3-6.7); Neutrophils Percent Auto 61.1 % (45.5-73.1); Platelet Count Result 208 k/mm3 (150-375); Red Blood Count 4.29 M/mm3 (4.2-5.4); Red Cell Distribution Width 13.8 % (11.5-14.5); White Blood Count 7.1 K/mm3 (4.5-10.0)
[2022-07-27 12:57] LABS: Appearance Urine Clear (Clear); Bilirubin Urine Negative (Negative); Blood Urine Trace-intact (Negative); Color Urine Light Yellow (Yellow); Glucose Urine UA Negative (Negative); Ketones Urine Negative (Negative); Leukocyte Esterase Ur 1+ LEU/UL (Negative); Nitrate Urine Negative (Negative); Protein Urine Negative (Negative); Specific Grav Ur <= 1.005 (1.001-1.035); Urobilinogen Urine 0.2 mg/dL (<2.0); pH Urine 5.5 (5.0-9.0)
[2022-07-27 13:05] LABS: Alanine Aminotransferase 17 U/L (6-35); Albumin Level 4.6 g/dL (3.5-5.1); Alkaline Phosphatase 89 U/L (38-126); Anion Gap 9 mmol/L (8-16); Aspartate Amino Transferase 25 U/L (14-36); Bilirubin,Total 0.7 mg/dL (0.2-1.3); Blood Urea Nitrogen 11 mg/dL (7-17); Calcium 9.5 mg/dL (8.4-10.2); Carbon Dioxide 26 mmol/L (22-30); Chloride 106 mmol/L (98-107); Estimated CRCL calculation 25 ml/min; Estimated Glomerular Filt Rate 39; Glucose 129 mg/dL (65-110); Lipase 93 U/L (23-300); Potassium 4.1 mmol/L (3.4-5.0); Sodium 141 mmol/L (137-145)
[2022-07-27 13:08] LABS: Bacteria Urine Trace /hpf; Mucus Urine Rare /lpf; RBC Urine 0-2 /hpf (0-2); Squamous Epithelial Cell Urine Rare /hpf (Few); Transitional Epi Cells Urine Rare /hpf (None Seen)
[2022-07-27 13:16] LABS: Add Urine Microscopic? YES
[2022-07-27 14:23] VITALS: BP 153/54; PULSE 57; RESP 20; TEMP 36.4; O2SAT 98
--- NOTE | 2022-07-27 15:17 | ED.NAVMDI ---
HPI - Nausea/Vomiting/Diarrhea General Chief complaint: Nausea/Vomiting/Diarrhea Stated complaint: nausea/weakness x 2 weeks Time Seen by Provider: 07/27/22 15:09 Source: patient Mode of arrival: ambulatory Limitations: no limitations History of Present Illness HPI Narrative: Patient is 82 years old white female with lives with her daughter and her son-in-law, does not get along with her son-in-law or her grandsons. Came to the emergency room because of feeling nauseated and weak since the of this month. Patient was seen by her family physician, work-up did not show any significant abnormalities. Currently she denies any fever, chills, nausea, vomiting, abdominal pain, diarrhea, constipation, chest pain or shortness of breath. Related Data Home Medications Medication Instructions Recorded Confirmed melatonin 3 mg tablet 3 mg PO HS 10/31/21 07/20/22 sotalol 80 mg tablet 80 mg PO BID 04/18/22 07/20/22 Allergies Allergy/AdvReac Type Severity Reaction Status Date / Time Penicillins Allergy Severe Hives Verified 07/27/22 12:39 nitrofurantoin Allergy Intermediate Hives Verified 07/27/22 12:39 [From Macrobid] Quinolones Allergy Mild Unknown Verified 07/27/22 12:39 cefprozil Allergy Unknown Unknown Verified 07/27/22 12:39 cefuroxime Allergy Unknown Unknown Verified 07/27/22 12:39 Cephalosporins Allergy Unknown Unknown Verified 07/27/22 12:39 gatifloxacin Allergy Unknown Unknown Verified 07/27/22 12:39 metronidazole Allergy Unknown Unknown Verified 07/27/22 12:39 erythromycin base AdvReac Unknown Stomach Verified 07/27/22 12:39 cramps loratadine [From Claritin] AdvReac Unknown Jittery Verified 07/27/22 12:39 Review of Systems Review of Systems: All systems reviewed & are unremarkable except as noted in HPI and below PMFSH Past Medical History Medical History Anxiety Aortic valve regurgitation Moderate by echocardiogram in October 2018. Followed by Dr. Velasco. Arthritis Benzodiazepine dependence BMI 28.0-28.9,adult BMI 29.0-29.9,adult Bronchiectasis Prior imaging demonstrated bronchiectasis in bilateral lower lobes with chronic scarring. Chronic kidney disease, stage 3 Baseline creatinine between 1.20 and 1.40. Chronic midline low back pain with sciatica Dementia Reported by daughter, however the patient disputes this. Depression Diverticulitis Gastroesophageal reflux disease Hyperlipidemia Hypertension Nausea Obstructive sleep apnea Paroxysmal atrial fibrillation She has declined anticoagulation and antiarrhythmics previously but is now on metoprolol daily. She is followed by Dr. Velasco. Surgical History Surgical History History of appendectomy History of cardiac catheterization No known intervention. History of cataract surgery History of cholecystectomy History of tooth extraction Status post appendectomy Status post cataract extraction Status post hysterectomy Status post tubal ligation Family History Family History Father Acute myocardial infarction Family history of alcoholism Gout Tobacco abuse Mother Family history of alcoholism Sibling Acute myocardial infarction Heart disease Sibling Brain aneurysm Daughter Bowel perforation July 2020 sounds like it may have been a bowel perforation related to hernia and possibly some diabetic problems.. Daughter Heart disease age 35 of heart attack Acute myocardial infarction Daughter COVID-19 Cyst of breast Social History Social History Social History: The patient has been since 2017. She lives in [place] with her daughter and son-in-law. Grandson and great grandson live next door. She has 3 daughters, 1 from an [place] at
[2022-07-27 16:11] VITALS: BP 155/62; PULSE 56; RESP 20; O2SAT 99
== END 2022-07-27 16:11 | disposition home or self-care (01) ==
PROVIDERS: Emergency Medicine; Emergency Provider Emergency Medicine; PCP Family Medicine
DX: F41.9 Anxiety disorder, unspecified (principal); R11.0 Nausea; M19.90 Unspecified osteoarthritis, unspecified site; I12.9 Hypertensive chronic kidney disease with stage 1 through stage 4 chronic kidney disease, or unspecified chronic kidney disease; N18.30 Chronic kidney disease, stage 3 unspecified; K21.9 Gastro-esophageal reflux disease without esophagitis; I48.91 Unspecified atrial fibrillation
CPT/HCPCS: 36415; 80053; 81001; 83690; 85025; 99283

== ENCOUNTER 2022-10-14 09:59 | Emergency (ER) | payer MEDICARE, SELFPAY ==
--- NOTE | ~2022-10-14 | CT_ITS ---
EXAMINATION: CT abdomen pelvis w con DATE: 10/14/2022 13:24 INDICATION: Epigastric abdominal pain. Right lower quadrant abdominal pain. TECHNIQUE: Computed tomography (CT) of the abdomen and pelvis was performed with 100 mL Omnipaque 350 intravenous contrast. Automated exposure control and iterative reconstruction technique were employe d. The dose-length product was 329.59 mGy-cm. COMPARISON: CT abdomen and pelvis 01/01/2022 FINDINGS: The visualized portions of the lung bases demonstrate mild atelectasis and mild chronic int erstitial lung disease. A calcified right lung nodule is consistent with old granulomatous disease. N o pleural effusion. The heart size is normal. There are coronary artery calcifications. No pericardia l effusion. The liver is normal. There are changes of cholecystectomy. Calcifications in the spleen a re consistent with old granulomatous disease. The pancreas and adrenal glands are normal. The kidneys are normal. There is diverticulosis of the colon without evidence of diverticulitis. There are no di lated loops of bowel. The appendix is not visualized. There are no pathologically enlarged lymph node s. There is no free intraperitoneal fluid. There is severe thoracolumbar spondylosis. IMPRESSION: 1. No etiology for the patient's symptoms. Reviewed, dictated and finalized at location A. CHOOL EDUCATION DIRECTOR
--- NOTE | ~2022-10-14 | XR_ITS ---
EXAMINATION: XR chest 2V DATE: 10/14/2022 11:03 INDICATION: Heart palpitations and weakness TECHNIQUE: Frontal and lateral views of the chest are obtained COMPARISON: 07/22/2022 FINDINGS: The lungs are free of acute opacities. There is chronic airspace opacity and volume loss in the right upper lobe without significant change. No pleural effusion or pneumothorax. The cardiomedi astinal silhouette is normal. There is moderate thoracic spondylosis. Surgical clips in the right upp er quadrant are likely from prior cholecystectomy. IMPRESSION: 1. No acute cardiopulmonary abnormality. 2. Chronic airspace opacity and volume loss in the right upper lobe, consistent with radiation fibros is. Reviewed, dictated and finalized at location B. ATOR SUPERVISOR IMPRESSION: 1. No acute cardiopulmonary abnormality. 2. Chronic airspace opacity and volume loss in the right upper lobe, consistent with radiation fibrosis.
[2022-10-14 10:00] VITALS: BP 141/62; PULSE 60; RESP 16; TEMP 36.6; O2SAT 100
--- NOTE | 2022-10-14 10:03 | ECG_ITS ---
Measurements Intervals [place] Rate: 59 P: 26 UT: 224 QRS: -24 QRSD: 85 T: 40 QT: 424 QTc: 421 Interpretive Statements SINUS BRADYCARDIA WITH FIRST DEGREE AV BLOCK BORDERLINE LEFT AXIS DEVIATION [QRS AXIS < -20] LOW QRS VOLTAGE IN PRECORDIAL LEADS [QRS DEFLECTION < 1.0 mV IN CHEST LEADS] MODERATE VOLTAGE CRITERIA FOR LVH, CONSIDER NORMAL VARIANT [MEETS CRITERIA IN ONE OF: R(aVL), S(V1), R(V5), R(V5/V6)+S(V1)] COMPARED TO ECG 06/20/2022 12:27:38 NO SIGNIFICANT CHANGES Electronically Signed On 10-14-2022 15:29:06 QUANTOMETER OPERATOR by Freddie Velasco M.D.
[2022-10-14 10:33] LABS: Basophils Percent Auto 0.7 % (0.2-1.2); Eosinophils Absolute Auto 0.2 K/mm3 (0-0.3); Eosinophils Percent Auto 3.8 % (0-4.4); Hematocrit 39.5 % (37.0-47.0); Immature Granulocyte Absolute 0.02 K/mm3 (0.00-0.031); Immature Granulocyte Percent A 0.3 % (0-0.5); Lymphocytes Absolute Auto 1.49 K/mm3 (0.9-3.2); Lymphocytes Percent Auto 25.9 % (18.3-44.2); Mean Corpuscular HGB Conc 32.9 g/dl (32-36); Mean Corpuscular Hemoglobin 29.7 pg (26-34); Mean Corpuscular Volume 90.2 fl (80-100); Mean Platelet Volume 10.5 fl (7.4-10.4); Monocytes Absolute Auto 0.4 K/mm3 (0.1-0.6); Monocytes Percent Auto 6.3 % (2.6-8.5); Neutrophils Absolute Auto 3.6 K/mm3 (1.3-6.7); Platelet Count Result 206 k/mm3 (150-375); Red Blood Count 4.38 M/mm3 (4.2-5.4); Red Cell Distribution Width 13.8 % (11.5-14.5); White Blood Count 5.8 K/mm3 (4.5-10.0)
[2022-10-14 10:45] LABS: INR 1.4; Prothrombin Time 16.8 Seconds (11.1-14.7)
[2022-10-14 10:46] LABS: Partial Thromboplastin Time 33.4 SECONDS (22.3-36.8)
[2022-10-14 10:52] LABS: Alanine Aminotransferase 17 U/L (6-35); Albumin Level 4.3 g/dL (3.5-5.1); Alkaline Phosphatase 91 U/L (38-126); Anion Gap 5 mmol/L (8-16); Aspartate Amino Transferase 33 U/L (14-36); Bilirubin,Total 0.9 mg/dL (0.2-1.3); Blood Urea Nitrogen 13 mg/dL (7-17); Calcium 9.2 mg/dL (8.4-10.2); Carbon Dioxide 26 mmol/L (22-30); Chloride 104 mmol/L (98-107); Estimated CRCL calculation 28 ml/min; Estimated Glomerular Filt Rate 43; Glucose 148 mg/dL (65-110); Lipase 92 U/L (23-300); Potassium 4.6 mmol/L (3.4-5.0); Sodium 135 mmol/L (137-145)
[2022-10-14 10:56] LABS: Troponin I < 0.012 ng/mL (0.000-0.034)
[2022-10-14 11:35] VITALS: PULSE 50
[2022-10-14 11:37] VITALS: BP 121/55; PULSE 50; RESP 16; O2SAT 99
--- NOTE | 2022-10-14 12:13 | ED.ARRPALP ---
HPI - Arrhythmia/Palpitations General Chief Complaint: Arrhythmia/Palpitations Stated Complaint: afib Time Seen by Provider: 10/14/22 11:32 Source: patient Mode of arrival: ambulatory Limitations: no limitations History of Present Illness HPI narrative: Patient is an 82-year-old female who presents to the ED with multiple complaints. Patient reports having heart palpitations this morning. She has a history of paroxysmal atrial fibrillation and believed she was in A-fib this am. She does take sotalol and Eliquis. Sees Dr. Velasco. Denied any chest pain. Patient also reports having pain in her upper abdomen over the last few days after eating out a restaurant, which has worsened since then. She has been taking Tylenol and omeprazole which does improve pain temporarily. She also reports nausea, but denies vomiting, diarrhea, constipation, rectal bleeding, melena, urinary symptoms, fevers. Last bowel movement this morning and regular. Related Data Home Medications Medication Instructions Recorded Confirmed melatonin 3 mg tablet 3 mg PO HS 10/31/21 07/20/22 sotalol 80 mg tablet 80 mg PO BID 04/18/22 07/20/22 Allergies Allergy/AdvReac Type Severity Reaction Status Date / Time Penicillins Allergy Severe Hives Verified 10/14/22 11:54 nitrofurantoin Allergy Intermediate Hives Verified 10/14/22 11:54 [From Macrobid] Quinolones Allergy Mild Unknown Verified 10/14/22 11:54 cefprozil Allergy Unknown Unknown Verified 10/14/22 11:54 cefuroxime Allergy Unknown Unknown Verified 10/14/22 11:54 Cephalosporins Allergy Unknown Unknown Verified 10/14/22 11:54 gatifloxacin Allergy Unknown Unknown Verified 10/14/22 11:54 metronidazole Allergy Unknown Unknown Verified 10/14/22 11:54 erythromycin base AdvReac Unknown Stomach Verified 10/14/22 11:54 cramps loratadine [From Claritin] AdvReac Unknown Jittery Verified 10/14/22 11:54 Review of Systems Review of Systems: CONSTITUTIONAL: Denies fever, chills, or sweats. CARDIOVASCULAR: See HPI. RESPIRATORY: Denies cough or dyspnea. GASTROINTESTINAL: See HPI. GENITOURINARY: Denies dysuria or hematuria. All systems reviewed & are unremarkable except as noted in HPI and below PMFSH Past Medical History Medical History Anxiety Aortic valve regurgitation Moderate by echocardiogram in October 2018. Followed by Dr. Velasco. Arthritis Benzodiazepine dependence BMI 28.0-28.9,adult BMI 29.0-29.9,adult Bronchiectasis Prior imaging demonstrated bronchiectasis in bilateral lower lobes with chronic scarring. Chronic kidney disease, stage 3 Baseline creatinine between 1.20 and 1.40. Chronic midline low back pain with sciatica Dementia Reported by daughter, however the patient disputes this. Depression Diverticulitis Gastroesophageal reflux disease Hyperlipidemia Hypertension Nausea Obstructive sleep apnea Paroxysmal atrial fibrillation She has declined anticoagulation and antiarrhythmics previously but is now on metoprolol daily. She is followed by Dr. Velasco. Surgical History Surgical History History of appendectomy History of cardiac catheterization No known intervention. History of cataract surgery History of cholecystectomy History of tooth extraction Status post appendectomy Status post cataract extraction Status post hysterectomy Status post tubal ligation Family History Family History Father Acute myocardial infarction Family history of alcoholism Gout Tobacco abuse Mother Family history of alcoholism Sibling Acute myocardial infarction Heart disease Sibling Brain aneurysm Daughter Bowel perforation July 2020 sounds like it may have been a bowel perforation related to hernia and possibly some diabetic problems.. Ulisesoby
[2022-10-14] MEDS: ONDANSETRON INJ 4 MG/2 ML VIAL IV PUSH (12:45)
[2022-10-14] MEDS: BELLADONNA ALK/PHENOB ELIX 10 ML, MAG HYDROX/ALUMINUM HYD/SIMETH 30 ML, LIDOCAINE HCL 2... PO (12:45)
[2022-10-14] MEDS: SODIUM CHLORIDE 0.9% IV 1,000 ML 999 ML IV CONT (12:53)
[2022-10-14 13:04] VITALS: BP 131/66; PULSE 47; RESP 19; O2SAT 99
[2022-10-14 13:17] LABS: Troponin I < 0.012 ng/mL (0.000-0.034)
[2022-10-14 13:52] LABS: Appearance Urine Clear (Clear); Bilirubin Urine Negative (Negative); Blood Urine Trace-lysed (Negative); Color Urine Yellow (Yellow); Glucose Urine UA Negative (Negative); Ketones Urine Negative (Negative); Leukocyte Esterase Ur Negative LEU/UL (Negative); Nitrate Urine Negative (Negative); Protein Urine Negative (Negative); Urobilinogen Urine 0.2 mg/dL (<2.0); pH Urine 5.5 (5.0-9.0)
[2022-10-14 13:54] LABS: Mucus Urine Rare /lpf; RBC Urine 0-2 /hpf (0-2); Squamous Epithelial Cell Urine Rare /hpf (Few); WBC Urine 0-3 /hpf
[2022-10-14 14:05] LABS: Add Urine Microscopic? YES
[2022-10-14 14:28] VITALS: BP 94/57; PULSE 54; RESP 19; O2SAT 100
[2022-10-14 16:26] VITALS: BP 95/78; PULSE 52; RESP 18; O2SAT 100
== END 2022-10-14 16:29 | disposition home or self-care (01) ==
PROVIDERS: Emergency Medicine; Emergency Provider Physician Assistant; PCP Family Medicine
DX: R00.2 Palpitations (principal); R10.10 Upper abdominal pain, unspecified; I48.0 Paroxysmal atrial fibrillation; I35.1 Nonrheumatic aortic (valve) insufficiency; I12.9 Hypertensive chronic kidney disease with stage 1 through stage 4 chronic kidney disease, or unspecified chronic kidney disease; N18.30 Chronic kidney disease, stage 3 unspecified; E78.5 Hyperlipidemia, unspecified; G47.33 Obstructive sleep apnea (adult) (pediatric); K21.9 Gastro-esophageal reflux disease without esophagitis; M19.90 Unspecified osteoarthritis, unspecified site; Z79.01 Long term (current) use of anticoagulants; Z98.49 Cataract extraction status, unspecified eye; Z90.710 Acquired absence of both cervix and uterus; R91.8 Other nonspecific abnormal finding of lung field; I44.0 Atrioventricular block, first degree; R00.1 Bradycardia, unspecified; R94.31 Abnormal electrocardiogram [ECG] [EKG]
CPT/HCPCS: 36415; 71046; 74177; 80053; 81001; 83690; 84484; 85025; 85610; 85730; 93005; 96361; 96365; 96375; 99284; A9270; J0131; J2405; J7030; Q9967

== ENCOUNTER 2022-10-24 10:26 | Outpatient (CLI) | payer MEDICARE, SELFPAY ==
--- NOTE | ~2022-10-24 | CT_ITS ---
Clinical Indication: Non-small cell lung carcinoma CT Scan of the Chest with Contrast: Technique: Contiguous sections were acquired throughout the chest after intravenous administration of 75 cc of Omnipaque 350. Dose reduction technique was used on this scan by utilizing automated exposu re control and iterative reconstruction technique. The dose-length product (DLP) was 251.55 mGy-cm. COMPARISON: 07/19/2022 Findings: There is no evidence of any significant mediastinal, hilar or axillary lymphadenopathy. There is no f illing defect in the pulmonary arterial tree to suggest pulmonary embolus. There is no evidence of ao rtic dissection or aneurysm. Coronary artery calcifications are present. There is no evidence of pleural or pericardial effusion. There is stable airspace consolidation and volume loss in the right upper lobe, which could reflect p ostsurgical and/or postradiation change. There is a stable 5 mm pulmonary nodule in the posterior lef t lower lobe (axial image 58). Images through the upper abdomen reveal cholecystectomy clips. Impression: Stable airspace consolidation and volume loss in the right upper lobe, presumably postoperative and/o r postradiation change. Stable 5 mm left lower lobe pulmonary nodule. Reviewed, dictated and finalized at location M. AL HEALTH CASE MANAGER Impression: Stable airspace consolidation and volume loss in the right upper lobe, presumab ly postoperative and/or postradiation change. Stable 5 mm left lower lobe pulmonary nodule.
== END 2022-10-24 10:27 | disposition home or self-care (01) ==
PROVIDERS: PCP Family Medicine; Referring Provider Specialist; Visit Provider Internal Medicine Hematology & Oncology
DX: C34.90 Malignant neoplasm of unspecified part of unspecified bronchus or lung (principal); R91.1 Solitary pulmonary nodule
CPT/HCPCS: 71260; Q9967

== ENCOUNTER 2022-10-31 10:40 | Outpatient (CLI) | payer MEDICARE, SELFPAY ==
[2022-10-31 10:54] LABS: Basophils Absolute Auto 0.1 K/mm3 (0.0-0.1); Eosinophils Absolute Auto 0.3 K/mm3 (0-0.3); Eosinophils Percent Auto 3.8 % (0-4.4); Hemoglobin 12.6 g/dL (12.0-15.0); Immature Granulocyte Absolute 0.03 K/mm3 (0.00-0.031); Immature Granulocyte Percent A 0.4 % (0-0.5); Lymphocytes Percent Auto 28.4 % (18.3-44.2); Mean Corpuscular HGB Conc 32.3 g/dl (32-36); Mean Corpuscular Volume 92.9 fl (80-100); Mean Platelet Volume 10.1 fl (7.4-10.4); Monocytes Absolute Auto 0.4 K/mm3 (0.1-0.6); Monocytes Percent Auto 5.8 % (2.6-8.5); Neutrophils Absolute Auto 4.3 K/mm3 (1.3-6.7); Neutrophils Percent Auto 60.6 % (45.5-73.1); Platelet Count Result 221 k/mm3 (150-375); Red Cell Distribution Width 13.6 % (11.5-14.5)
[2022-10-31 10:58] LABS: Blood Urea Nitrogen 12 mg/dL (8-26); Carbon Dioxide 27 mmol/L (22-30); Chloride 104 mmol/L (98-109); Estimated Glomerular Filt Rate 36; Glucose 155 mg/dL (70-105); Ionized Calcium (POC) 1.26 mmol/L (1.11-1.31); Potassium 3.9 mmol/L (3.5-4.9); Sodium 140 mmol/L (138-146)
[2022-10-31 13:23] LABS: Alanine Aminotransferase 17 U/L (6-35); Albumin Level 4.3 g/dL (3.5-5.1); Alkaline Phosphatase 94 U/L (38-126); Anion Gap 10 mmol/L (8-16); Aspartate Amino Transferase 23 U/L (14-36); Bilirubin,Total 0.8 mg/dL (0.2-1.3); Blood Urea Nitrogen 12 mg/dL (7-17); Calcium 9.3 mg/dL (8.4-10.2); Carbon Dioxide 25 mmol/L (22-30); Chloride 105 mmol/L (98-107); Estimated Glomerular Filt Rate 39; Glucose 154 mg/dL (65-110); Potassium 3.9 mmol/L (3.4-5.0); Sodium 140 mmol/L (137-145)
== END 2022-10-31 10:41 | disposition home or self-care (01) ==
LOC: ANHLAB 10:42
PROVIDERS: PCP Family Medicine; Visit Provider Internal Medicine Hematology & Oncology
DX: C34.90 Malignant neoplasm of unspecified part of unspecified bronchus or lung (principal)
CPT/HCPCS: 36415; 80047; 80053; 85025

== ENCOUNTER 2022-11-09 11:53 | Emergency (ER) | payer MEDICARE, SELFPAY ==
--- NOTE | ~2022-11-09 | XR_ITS ---
Clinical Indication: Cough PA and lateral views of the chest: Comparison: 10/14/2022 and 06/20/2022 Findings: Stable ovoid masslike density at the right upper lobe region. Left lung clear.. Cardiomedi astinal silhouette is within normal limits. Bones and soft tissues are unremarkable. Impression: Stable ovoid masslike density at the right upper lobe. This could reflect post therapy change related to treated neoplasm. Correlate with any relevant clinical history. Reviewed, dictated and finalized at location . Impression: Stable ovoid masslike density at the right upper lobe. This could reflect post therapy change related to treated neoplasm. Correlate with any relevant clinica l history.
--- NOTE | ~2022-11-09 | CT_ITS ---
EXAMINATION: CTA chest PE protocol DATE: 11/09/2022 14:39 INDICATION: Shortness of breath. TECHNIQUE: Computed tomography angiography (CTA) of the chest was performed with 100 mL Omnipaque-350 intravenous contrast timed to evaluate the pulmonary arteries. Coronal maximum intensity projection 3D-reconstructions were created by the technologist. Automated exposure control and iterative reconst ruction technique were employed. The dose-length product was 343.93 mGy-cm. COMPARISON: Chest CT 10/24/2022, 07/19/22, 04/13/22, 12/31/21, 07/19/21 FINDINGS: There is chronic peripheral septal thickening in the lungs. There are airspace opacities wi th volume loss in right upper lobe, consistent with radiation fibrosis. There is a 3 mm nodule in loretta gula, likely benign. There is a chronic 5 mm nodule in left lower lobe, likely benign. A calcified ri ght lung nodule is consistent with old granulomatous disease. No pleural effusion. The heart size is normal. There are coronary artery calcifications. No pericardial effusion. There is no pulmonary embo sahyne. There is no pulmonary embolus. There are changes of cholecystectomy. Calcifications in the splee n are consistent with old granulomatous disease. There is severe cervical and lower thoracic spondylo sis. There is mild chronic anterior wedging of multiple lower thoracic vertebral bodies. IMPRESSION: 1. No pulmonary embolus. 2. 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 Reviewed, dictated and finalized at location A.
[2022-11-09 12:14] VITALS: BP 151/66; PULSE 61; RESP 16; TEMP 36.3; O2SAT 100
--- NOTE | 2022-11-09 12:23 | ECG_ITS ---
Measurements Intervals [place] Rate: 54 P: -66 [place]: 194 QRS: -23 QRSD: 88 T: -6 QT: 465 QTc: 444 Interpretive Statements SINUS RHYTHM WITH FIRST DEGREE AV BLOCK LOW QRS VOLTAGE IN PRECORDIAL LEADS LEFT VENTRICULAR HYPERTROPHY INFERIOR INFARCT, AGE INDETERMINATE ABNORMAL ECG COMPARED TO ECG 10/14/2022 10:09:34 NO SIGNIFICANT CHANGES Electronically Signed On 11-09-2022 13:48:19 CDT by Seamus Cowan D.O.
--- NOTE | 2022-11-09 13:04 | ED.GENADULT ---
HPI - General Adult General Chief complaint: Weakness Stated complaint: Weak, SOB starting this morning Time Seen by Provider: 11/09/22 12:54 History of Present Illness HPI narrative: 82 year old female with a history of A-fib on Eliquis, lung cancer in remission, here for evaluation of generalized weakness, shortness of breath x 2 days. States that she has been experiencing the symptoms for the past several months, has been seen in the ED and so by her PCP and has had a reassuring work-up aside from a new lung nodule. She is set to follow-up with her oncologist in February regarding this nodule. She also reports some nausea but no vomiting, diarrhea, constipation, fevers or chills. Related Data Home Medications Medication Instructions Recorded Confirmed melatonin 3 mg tablet 3 mg PO HS 10/31/21 11/01/22 sotalol 80 mg tablet 80 mg PO BID 04/18/22 11/01/22 Allergies Allergy/AdvReac Type Severity Reaction Status Date / Time Penicillins Allergy Severe Hives Verified 11/09/22 11:54 nitrofurantoin Allergy Intermediate Hives Verified 11/09/22 11:54 [From Macrobid] Quinolones Allergy Mild Unknown Verified 11/09/22 11:54 cefprozil Allergy Unknown Unknown Verified 11/09/22 11:54 cefuroxime Allergy Unknown Unknown Verified 11/09/22 11:54 Cephalosporins Allergy Unknown Unknown Verified 11/09/22 11:54 gatifloxacin Allergy Unknown Unknown Verified 11/09/22 11:54 metronidazole Allergy Unknown Unknown Verified 11/09/22 11:54 erythromycin base AdvReac Unknown Stomach Verified 11/09/22 11:54 cramps loratadine [From Claritin] AdvReac Unknown Jittery Verified 11/09/22 11:54 Review of Systems Review of Systems: All systems reviewed & are unremarkable except as noted in HPI and below PMFSH Past Medical History Medical History Anxiety Aortic valve regurgitation Moderate by echocardiogram in October 2018. Followed by Dr. Velasco. Arthritis Benzodiazepine dependence BMI 28.0-28.9,adult BMI 29.0-29.9,adult Bronchiectasis Prior imaging demonstrated bronchiectasis in bilateral lower lobes with chronic scarring. Chronic kidney disease, stage 3 Baseline creatinine between 1.20 and 1.40. Chronic midline low back pain with sciatica Dementia Reported by daughter, however the patient disputes this. Depression Diverticulitis Gastroesophageal reflux disease Hyperlipidemia Hypertension Nausea Obstructive sleep apnea Paroxysmal atrial fibrillation She has declined anticoagulation and antiarrhythmics previously but is now on metoprolol daily. She is followed by Dr. Velasco. Surgical History Surgical History History of appendectomy History of cardiac catheterization No known intervention. History of cataract surgery History of cholecystectomy History of tooth extraction Status post appendectomy Status post cataract extraction Status post hysterectomy Status post tubal ligation Family History Family History Father Acute myocardial infarction Family history of alcoholism Gout Tobacco abuse Mother Family history of alcoholism Sibling Acute myocardial infarction Heart disease Sibling Brain aneurysm Daughter Bowel perforation July 2020 sounds like it may have been a bowel perforation related to hernia and possibly some diabetic problems.. Daughter Heart disease age 35 of heart attack Acute myocardial infarction Daughter COVID-19 Cyst of breast Social History Social History Social History: The patient has been since 2017. She lives in [place] with her daughter and son-in-law. Grandson and great grandson live next door. She has 3 daughters, 1 from an [place] at age 30, and the other 1 recentl
[2022-11-09 13:20] LABS: Basophils Absolute Auto 0.1 K/mm3 (0.0-0.1); Basophils Percent Auto 0.7 % (0.2-1.2); Eosinophils Absolute Auto 0.3 K/mm3 (0-0.3); Eosinophils Percent Auto 3.7 % (0-4.4); Hemoglobin 13.5 g/dL (12.0-15.0); Immature Granulocyte Absolute 0.03 K/mm3 (0.00-0.031); Immature Granulocyte Percent A 0.4 % (0-0.5); Lymphocytes Absolute Auto 1.58 K/mm3 (0.9-3.2); Lymphocytes Percent Auto 22.7 % (18.3-44.2); Mean Corpuscular HGB Conc 32.1 g/dl (32-36); Mean Corpuscular Hemoglobin 30.3 pg (26-34); Mean Corpuscular Volume 94.4 fl (80-100); Mean Platelet Volume 10.2 fl (7.4-10.4); Monocytes Absolute Auto 0.4 K/mm3 (0.1-0.6); Monocytes Percent Auto 6.2 % (2.6-8.5); Neutrophils Absolute Auto 4.6 K/mm3 (1.3-6.7); Neutrophils Percent Auto 66.3 % (45.5-73.1); Platelet Count Result 199 k/mm3 (150-375); Red Blood Count 4.45 M/mm3 (4.2-5.4); Red Cell Distribution Width 13.7 % (11.5-14.5)
[2022-11-09] MEDS: FAMOTIDINE 20 MG/2 ML VIAL IV PUSH (13:24)
[2022-11-09] MEDS: LACTATED RINGERS 1,000 ML 999 ML IV CONT (13:24)
[2022-11-09] MEDS: ONDANSETRON INJ 4 MG/2 ML VIAL IV PUSH (13:24)
[2022-11-09 13:26] LABS: Appearance Urine Clear (Clear); Bacteria Urine None Seen /hpf; Bilirubin Urine Negative (Negative); Blood Urine Negative (Negative); Color Urine Yellow (Yellow); Glucose Urine UA Negative (Negative); Ketones Urine Negative (Negative); Leukocyte Esterase Ur 2+ LEU/UL (Negative); Nitrate Urine Negative (Negative); Non Pathogenic Casts 0-2; Protein Urine Negative (Negative); RBC Urine 0-2 /hpf (0-2); Specific Grav Ur 1.005 (1.001-1.035); Squamous Epithelial Cell Urine None seen /hpf (Few); Urobilinogen Urine 0.2 mg/dL (<2.0)
[2022-11-09 13:30] LABS: Alanine Aminotransferase 18 U/L (6-35); Albumin Level 4.6 g/dL (3.5-5.1); Alkaline Phosphatase 105 U/L (38-126); Anion Gap 7 mmol/L (8-16); Aspartate Amino Transferase 29 U/L (14-36); Bilirubin,Total 0.7 mg/dL (0.2-1.3); Blood Urea Nitrogen 12 mg/dL (7-17); Calcium 9.5 mg/dL (8.4-10.2); Carbon Dioxide 27 mmol/L (22-30); Chloride 104 mmol/L (98-107); Estimated CRCL calculation 26 ml/min; Estimated Glomerular Filt Rate 43; Glucose 134 mg/dL (65-110); Potassium 3.8 mmol/L (3.4-5.0); Sodium 138 mmol/L (137-145)
[2022-11-09 13:32] LABS: Add Urine Microscopic? YES
[2022-11-09 13:42] LABS: NT Pro B Type Natriuretic Pept 159 pg/mL (19.9-100); Troponin I < 0.012 ng/mL (0.000-0.034)
[2022-11-09 13:55] LABS: Influenza A QL RT-PCR Negative (Negative); Influenza B QL RT-PCR Negative (Negative); RSV RNA, RT-PCR Negative (Negative); SARS-CoV-2 RNA PCR Negative
[2022-11-09 14:17] VITALS: BP 185/59; PULSE 54; RESP 18; O2SAT 98
[2022-11-09 14:46] LABS: Lipase 104 U/L (23-300)
== END 2022-11-09 15:41 | disposition home or self-care (01) ==
PROVIDERS: Emergency Medicine; Emergency Provider Physician Assistant; PCP Family Medicine; Referring Provider Specialist
DX: N39.0 Urinary tract infection, site not specified (principal); I13.0 Hypertensive heart and chronic kidney disease with heart failure and stage 1 through stage 4 chronic kidney disease, or unspecified chronic kidney disease; I50.9 Heart failure, unspecified; I48.0 Paroxysmal atrial fibrillation; E78.5 Hyperlipidemia, unspecified; N18.30 Chronic kidney disease, stage 3 unspecified; Z79.01 Long term (current) use of anticoagulants; Z20.822 Contact with and (suspected) exposure to COVID-19
CPT/HCPCS: 36415; 71046; 71275; 80053; 81001; 83690; 83880; 84484; 85025; 87086; 87637; 93005; 96361; 96374; 96375; 99284; J2405; J7120; Q9967

== ENCOUNTER 2022-11-26 11:26 | Emergency (ER) | payer MEDICARE, SELFPAY ==
--- NOTE | ~2022-11-26 | XR_ITS ---
EXAMINATION: XR chest 2V DATE: 11/26/2022 13:36 INDICATION: Shortness of breath. TECHNIQUE: Frontal and lateral views of the chest were obtained. COMPARISON: Chest 2 views 11/09/2022, chest CT 11/09/2022 FINDINGS: There are airspace opacities in the right upper lobe with volume loss. No pleural effusion or pneumothorax. The heart size is normal. Surgical clips in the right upper quadrant are likely from cholecystectomy. IMPRESSION: 1. Stable airspace opacities in right lung upper lobe with volume loss, consistent with radiation fib rosis. Reviewed, dictated and finalized at location A. IMPRESSION: 1. Stable airspace opacities in right lung upper lobe with volume loss, consist ent with radiation fibrosis.
[2022-11-26 11:35] VITALS: BP 110/50; PULSE 55; RESP 18; TEMP 36.6; O2SAT 99
--- NOTE | 2022-11-26 11:38 | ECG_ITS ---
Measurements Intervals [place] Rate: 54 P: 19 [place]: 221 QRS: -21 QRSD: 88 T: 25 QT: 445 QTc: 423 Interpretive Statements SINUS BRADYCARDIA WITH FIRST DEGREE AV BLOCK LEFTWARD AXIS LOW QRS VOLTAGE IN PRECORDIAL LEADS VOLTAGE CRITERIA FOR LVH Electronically Signed On 11-26-2022 15:49:32 CDT by Tip Hartman M.D.
[2022-11-26 12:00] LABS: Basophils Absolute Auto 0.1 K/mm3 (0.0-0.1); Basophils Percent Auto 0.8 % (0.2-1.2); Eosinophils Absolute Auto 0.3 K/mm3 (0-0.3); Eosinophils Percent Auto 4.1 % (0-4.4); Hematocrit 40.5 % (37.0-47.0); Hemoglobin 13.2 g/dL (12.0-15.0); Immature Granulocyte Absolute 0.02 K/mm3 (0.00-0.031); Immature Granulocyte Percent A 0.3 % (0-0.5); Lymphocytes Absolute Auto 1.39 K/mm3 (0.9-3.2); Lymphocytes Percent Auto 22.7 % (18.3-44.2); Mean Corpuscular HGB Conc 32.6 g/dl (32-36); Mean Corpuscular Hemoglobin 30.5 pg (26-34); Mean Corpuscular Volume 93.5 fl (80-100); Mean Platelet Volume 10.3 fl (7.4-10.4); Monocytes Absolute Auto 0.3 K/mm3 (0.1-0.6); Monocytes Percent Auto 5.1 % (2.6-8.5); Neutrophils Absolute Auto 4.1 K/mm3 (1.3-6.7); Platelet Count Result 225 k/mm3 (150-375); Red Blood Count 4.33 M/mm3 (4.2-5.4); Red Cell Distribution Width 13.6 % (11.5-14.5); White Blood Count 6.1 K/mm3 (4.5-10.0)
[2022-11-26 12:12] LABS: Alanine Aminotransferase 17 U/L (6-35); Albumin Level 4.2 g/dL (3.5-5.1); Alkaline Phosphatase 86 U/L (38-126); Anion Gap 8 mmol/L (8-16); Aspartate Amino Transferase 24 U/L (14-36); Bilirubin,Total 0.8 mg/dL (0.2-1.3); Blood Urea Nitrogen 13 mg/dL (7-17); Calcium 8.8 mg/dL (8.4-10.2); Carbon Dioxide 24 mmol/L (22-30); Chloride 106 mmol/L (98-107); Estimated CRCL calculation 29 ml/min; Estimated Glomerular Filt Rate 47; Glucose 148 mg/dL (65-110); Potassium 3.9 mmol/L (3.4-5.0); Sodium 138 mmol/L (137-145)
[2022-11-26 14:00] VITALS: PULSE 59
--- NOTE | 2022-11-26 14:31 | ED.GENADULT ---
HPI - General Adult General Chief complaint: Shortness of Breath/Dyspnea Stated complaint: shortness of breath with weakness Time Seen by Provider: 11/26/22 14:22 Source: patient Mode of arrival: ambulatory Limitations: no limitations History of Present Illness HPI narrative: 82 y/o female presents with an episode of generalized weakness and dizziness while making coffee this morning. patient states she just feels weak. patient denies chest pain but is having a little nausea. patient denies any other symptoms. Onset (ago): hour(s) (6) Associated symptoms: weakness Related Data Home Medications Medication Instructions Recorded Confirmed melatonin 3 mg tablet 3 mg PO HS 10/31/21 11/01/22 sotalol 80 mg tablet 80 mg PO BID 04/18/22 11/01/22 Allergies Allergy/AdvReac Type Severity Reaction Status Date / Time Penicillins Allergy Severe Hives Verified 11/09/22 11:54 nitrofurantoin Allergy Intermediate Hives Verified 11/09/22 11:54 [From Macrobid] Quinolones Allergy Mild Unknown Verified 11/09/22 11:54 cefprozil Allergy Unknown Unknown Verified 11/09/22 11:54 cefuroxime Allergy Unknown Unknown Verified 11/09/22 11:54 Cephalosporins Allergy Unknown Unknown Verified 11/09/22 11:54 gatifloxacin Allergy Unknown Unknown Verified 11/09/22 11:54 metronidazole Allergy Unknown Unknown Verified 11/09/22 11:54 erythromycin base AdvReac Unknown Stomach Verified 11/09/22 11:54 cramps loratadine [From Claritin] AdvReac Unknown Jittery Verified 11/09/22 11:54 Review of Systems Review of Systems: All systems reviewed & are unremarkable except as noted in HPI and below Constitutional: Constitutional: Denies fever(s) and Reports weakness Eyes: Eyes: Reports no additional eye complaints ENT: Reports system reviewed and no additional complaints, except as documented Cardiovascular: Cardiovascular: Reports no additional cardiovascular complaints Respiratory: Respiratory: Reports no additional respiratory complaints Gastrointestinal: Gastrointestinal: Reports nausea Genitourinary: Genitourinary: Reports no additional female genitourinary complaints Musculoskeletal: Musculoskeletal: Reports no additional musculoskeletal complaints Integumentary/Breasts: Skin/Breast: Reports system reviewed and no additional complaints, except as docu Neurologic: Reports system reviewed and no additional complaints, except as documented Psychiatric: Psychiatric: Reports no additional psychiatric complaints Endocrine: Endocrine: Reports no additional endocrine complaints Hematologic/Lymphatic: Hematologic/Lymphatic: Reports no additional hematologic/lymphatic complaints Allergic/Immunologic: Allergic/Immunologic: Reports no additional allergic/immunologic complaints [facility] Past Medical History Medical History Anxiety Aortic valve regurgitation Moderate by echocardiogram in October 2018. Followed by Dr. Velasco. Arthritis Benzodiazepine dependence BMI 28.0-28.9,adult BMI 29.0-29.9,adult Bronchiectasis Prior imaging demonstrated bronchiectasis in bilateral lower lobes with chronic scarring. Chronic kidney disease, stage 3 Baseline creatinine between 1.20 and 1.40. Chronic midline low back pain with sciatica Dementia Reported by daughter, however the patient disputes this. Depression Diverticulitis Gastroesophageal reflux disease Hyperlipidemia Hypertension Nausea Obstructive sleep apnea Paroxysmal atrial fibrillation She has declined anticoagulation and antiarrhythmics previously but is now on metoprolol daily. She is followed by Dr. Velasco. Surgical History Surgical History History of appendectomy History of cardiac catheterization No known intervention. History of cataract surgery History of cholecystectomy History of tooth extraction Status post appendectomy Status post cataract extraction Status
[2022-11-26] MEDS: ONDANSETRON INJ 4 MG/2 ML VIAL IV PUSH (14:46)
[2022-11-26] MEDS: SODIUM CHLORIDE 0.9% IV 500 ML 999 ML IV CONT (14:46)
[2022-11-26 15:15] LABS: Appearance Urine Cloudy (Clear); Bacteria Urine None Seen /hpf; Bilirubin Urine Negative (Negative); Blood Urine Negative (Negative); Color Urine Yellow (Yellow); Glucose Urine UA Negative (Negative); Ketones Urine Negative (Negative); Leukocyte Esterase Ur 2+ LEU/UL (Negative); Nitrate Urine Negative (Negative); Non Pathogenic Casts 0-2; Protein Urine Negative (Negative); RBC Urine 0-2 /hpf (0-2); Specific Grav Ur 1.008 (1.001-1.035); Squamous Epithelial Cell Urine None seen /hpf (Few); Urobilinogen Urine 0.2 mg/dL (<2.0); pH Urine 5.5 (5.0-9.0)
[2022-11-26 15:32] LABS: Add Urine Microscopic? YES
[2022-11-26 16:10] VITALS: BP 142/53; PULSE 59; RESP 16; O2SAT 100
[2022-11-26 16:13] VITALS: BP 142/53; PULSE 52; RESP 16; O2SAT 98
[2022-11-26] MEDS: SULFAMETHOXAZOLE/TRIMETHOPRIM 800/160 MG DS TABLET 1 TAB PO (16:21)
== END 2022-11-26 16:41 | disposition home or self-care (01) ==
PROVIDERS: Emergency Medicine; Emergency Provider Nurse Practitioner Family; PCP Family Medicine
DX: N39.0 Urinary tract infection, site not specified (principal); R53.1 Weakness; R06.02 Shortness of breath; I12.9 Hypertensive chronic kidney disease with stage 1 through stage 4 chronic kidney disease, or unspecified chronic kidney disease; N18.30 Chronic kidney disease, stage 3 unspecified; E78.5 Hyperlipidemia, unspecified; I48.0 Paroxysmal atrial fibrillation
CPT/HCPCS: 36415; 71046; 80053; 81001; 85025; 87086; 93005; 96361; 96374; 99284; A9270; J2405; J7040

== ENCOUNTER 2022-12-02 21:25 | Emergency (ER) | payer MEDICARE, SELFPAY ==
--- NOTE | ~2022-12-02 | XR_ITS ---
XR chest 2V DATE: 12/02/2022 21:51 INDICATION: Shortness of breath TECHNIQUE: PA and lateral views COMPARISON: None FINDINGS: Normal heart size. Mild aortic calcification and unfolding. History of radiation fibrosis, right upper lobe, stable in appearance since 07/22/2022. No interval pulmonary infiltrate or consolidation, pleural effusion or pulmonary vascular congestion or pneumothorax. Surgical clips, right upper quadrant, consistent with cholecystectomy. Osteopenia. IMPRESSION: Stable chronic right upper lobe opacity previously attributed to radiation fibrosis No active cardiopulmonary disease or significant change since 07/22/2022 Reviewed, dictated and finalized at location A. IMPRESSION: Stable chronic right upper lobe opacity previously attributed to ra diation fibrosis No active cardiopulmonary disease or significant change since 07/22/2022
--- NOTE | 2022-12-02 21:27 | ECG_ITS ---
Measurements Intervals [place] Rate: 60 P: 26 [place]: 225 QRS: -22 QRSD: 94 T: 2 QT: 457 QTc: 458 Interpretive Statements SINUS RHYTHM WITH FIRST DEGREE AV BLOCK LOW QRS VOLTAGE IN PRECORDIAL LEADS VOLTAGE CRITERIA FOR LVH ABNORMAL ECG COMPARED TO ECG 11/26/2022 11:49:26 HEART RATE HAS INCREASED Electronically Signed On 12-03-2022 15:19:54 CDT by Mariano Kohli M.D.
[2022-12-02 21:31] VITALS: BP 177/81; PULSE 73; RESP 26; TEMP 36.4; O2SAT 99
[2022-12-02 21:53] LABS: Basophils Absolute Auto 0.1 K/mm3 (0.0-0.1); Basophils Percent Auto 0.8 % (0.2-1.2); Eosinophils Absolute Auto 0.3 K/mm3 (0-0.3); Eosinophils Percent Auto 3.3 % (0-4.4); Hematocrit 38.4 % (37.0-47.0); Hemoglobin 12.5 g/dL (12.0-15.0); Immature Granulocyte Absolute 0.03 K/mm3 (0.00-0.031); Immature Granulocyte Percent A 0.4 % (0-0.5); Lymphocytes Percent Auto 28.5 % (18.3-44.2); Mean Corpuscular HGB Conc 32.6 g/dl (32-36); Mean Corpuscular Hemoglobin 29.6 pg (26-34); Mean Corpuscular Volume 90.8 fl (80-100); Mean Platelet Volume 10.4 fl (7.4-10.4); Monocytes Absolute Auto 0.7 K/mm3 (0.1-0.6); Monocytes Percent Auto 8.8 % (2.6-8.5); Neutrophils Absolute Auto 4.9 K/mm3 (1.3-6.7); Neutrophils Percent Auto 58.2 % (45.5-73.1); Platelet Count Result 216 k/mm3 (150-375); Red Blood Count 4.23 M/mm3 (4.2-5.4); Red Cell Distribution Width 13.8 % (11.5-14.5); White Blood Count 8.4 K/mm3 (4.5-10.0)
[2022-12-02 22:05] LABS: Alanine Aminotransferase 17 U/L (6-35); Albumin Level 4.4 g/dL (3.5-5.1); Alkaline Phosphatase 94 U/L (38-126); Anion Gap 10 mmol/L (8-16); Aspartate Amino Transferase 24 U/L (14-36); Bilirubin,Total 0.5 mg/dL (0.2-1.3); Blood Urea Nitrogen 21 mg/dL (7-17); Calcium 9.2 mg/dL (8.4-10.2); Carbon Dioxide 26 mmol/L (22-30); Chloride 103 mmol/L (98-107); Estimated CRCL calculation 19 ml/min; Estimated Glomerular Filt Rate 27; Glucose 106 mg/dL (65-110); Potassium 4.2 mmol/L (3.4-5.0); Sodium 139 mmol/L (137-145)
[2022-12-03 00:02] VITALS: BP 155/61; PULSE 56; RESP 20; O2SAT 96
[2022-12-03 00:11] VITALS: O2SAT 99
--- NOTE | 2022-12-03 00:49 | ED.GENADULT ---
HPI - General Adult General Chief complaint: Shortness of Breath/Dyspnea Stated complaint: weak Time Seen by Provider: 12/02/22 23:43 History of Present Illness HPI narrative: This is a 82-year-old female presenting to ED with a chief complaint of weakness. The patient said that she felt weak when she woke up this morning and was sick to her stomach. She then got up and had breakfast and lunch including [place] fried chicken and ice cream in the afternoon. Her energy returned she was able to go grocery shopping with her daughter although she did have to sit down while grocery shopping to get her strength back. She says that sometimes she has shortness of breath at night and it is worse when she is sitting and thinking about her and daughter who have anniversaries over this weekend. Patient does become tearful during the interview. the patient has had significant issues with anxiety over the last 1 year after she was taken off of her citalopram. the patient denies URI symptoms, cough, chest pain, nausea vomiting diarrhea abdominal pain. She was seen here a week ago and has been being treated with Bactrim for UTI which she has been compliant with the medication. Related Data Home Medications Medication Instructions Recorded Confirmed melatonin 3 mg tablet 3 mg PO HS 10/31/21 11/01/22 sotalol 80 mg tablet 80 mg PO BID 04/18/22 11/01/22 Allergies Allergy/AdvReac Type Severity Reaction Status Date / Time Penicillins Allergy Severe Hives Verified 11/09/22 11:54 nitrofurantoin Allergy Intermediate Hives Verified 11/09/22 11:54 [From Macrobid] Quinolones Allergy Mild Unknown Verified 11/09/22 11:54 cefprozil Allergy Unknown Unknown Verified 11/09/22 11:54 cefuroxime Allergy Unknown Unknown Verified 11/09/22 11:54 Cephalosporins Allergy Unknown Unknown Verified 11/09/22 11:54 gatifloxacin Allergy Unknown Unknown Verified 11/09/22 11:54 metronidazole Allergy Unknown Unknown Verified 11/09/22 11:54 erythromycin base AdvReac Unknown Stomach Verified 11/09/22 11:54 cramps loratadine [From Claritin] AdvReac Unknown Jittery Verified 11/09/22 11:54 [facility] Past Medical History Medical History Anxiety Aortic valve regurgitation Moderate by echocardiogram in October 2018. Followed by Dr. Velasco. Arthritis Benzodiazepine dependence BMI 28.0-28.9,adult BMI 29.0-29.9,adult Bronchiectasis Prior imaging demonstrated bronchiectasis in bilateral lower lobes with chronic scarring. Chronic kidney disease, stage 3 Baseline creatinine between 1.20 and 1.40. Chronic midline low back pain with sciatica Dementia Reported by daughter, however the patient disputes this. Depression Diverticulitis Gastroesophageal reflux disease Hyperlipidemia Hypertension Nausea Obstructive sleep apnea Paroxysmal atrial fibrillation She has declined anticoagulation and antiarrhythmics previously but is now on metoprolol daily. She is followed by Dr. Velasco. Surgical History Surgical History History of appendectomy History of cardiac catheterization No known intervention. History of cataract surgery History of cholecystectomy History of tooth extraction Status post appendectomy Status post cataract extraction Status post hysterectomy Status post tubal ligation Family History Family History Father Acute myocardial infarction Family history of alcoholism Gout Tobacco abuse Mother Family history of alcoholism Sibling Acute myocardial infarction Heart disease Sibling Brain aneurysm Daughter Bowel perforation July 2020 sounds like it may have been a bowel perforation related to hernia and possibly some diabetic problems.. Daughter Heart disease age 35 of heart attack Acute myocardia
== END 2022-12-03 01:13 | disposition home or self-care (01) ==
PROVIDERS: Emergency Provider Emergency Medicine; PCP Family Medicine
DX: F41.9 Anxiety disorder, unspecified (principal); I48.0 Paroxysmal atrial fibrillation; I35.1 Nonrheumatic aortic (valve) insufficiency; I12.9 Hypertensive chronic kidney disease with stage 1 through stage 4 chronic kidney disease, or unspecified chronic kidney disease; N18.30 Chronic kidney disease, stage 3 unspecified; E78.5 Hyperlipidemia, unspecified; K21.9 Gastro-esophageal reflux disease without esophagitis; G47.33 Obstructive sleep apnea (adult) (pediatric); M19.90 Unspecified osteoarthritis, unspecified site; F32.A Depression, unspecified; Z98.49 Cataract extraction status, unspecified eye; Z90.710 Acquired absence of both cervix and uterus; Z79.01 Long term (current) use of anticoagulants; Z79.82 Long term (current) use of aspirin; I44.0 Atrioventricular block, first degree
CPT/HCPCS: 36415; 71046; 80053; 85025; 93005; 99283

== ENCOUNTER 2022-12-07 12:52 | Emergency (ER) | payer MEDICARE, SELFPAY ==
--- NOTE | ~2022-12-07 | CT_ITS ---
EXAMINATION: CT lumbar spine wo con DATE: 12/07/2022 15:56 INDICATION: sciatica . TECHNIQUE: Computed tomography (CT) of the lumbar spine was performed without intravenous contrast. A utomated exposure control and iterative reconstruction technique were employed. The dose-length produ ct was 429.08 mGy-cm. COMPARISON: X-ray L-spine 12/04/2021; CT abdomen and pelvis 10/14/2022. FINDINGS: Atherosclerotic calcifications. Colonic diverticuli. Cholecystectomy. 5 nonrib-bearing lumb ar-type vertebral bodies. Pedicles intact. Minimal 1-2 mm retrolistheses from L1-2 through L3-4. 4 mm anterolisthesis at L4-5. 2-3 mm anterolisthesis at L5-S1. Vertebral body heights preserved. Multilev el disc space narrowing and marginal osteophytosis, with vacuum phenomenon at L4-5 and L5-S1. Severe facet hypertrophy and sclerosis at L4-5 and L5-S1. Moderate central canal stenosis at L4-5. Moderate neural foraminal narrowing on the right at L4-5 and on the left at L5-S1. IMPRESSION: No acute fracture or traumatic malalignment in the lumbar spine. Severe lumbar degenerative disc dise ase at L4-5 and L5-S1. 4 mm anterolisthesis and moderate central canal stenosis at L4-5. Moderate brendon ral foraminal narrowing on the right at L4-5 and on the left at L5-S1. Severe lower lumbar facet arth ropathy. Reviewed, dictated and finalized at location K. IMPRESSION: No acute fracture or traumatic malalignment in the lumbar spine. Severe lumbar degenerative disc disease at L4-5 and L5-S1. 4 mm anterolisthesis and moderate central canal stenosis at L4-5. Moderate neural foraminal narrowing on the righ t at L4-5 and on the left at L5-S1. Severe lower lumbar facet arthropathy.
--- NOTE | ~2022-12-07 | US_ITS ---
EXAMINATION:US venous doppler LE RT INDICATION:Right leg pain TECHNIQUE: Multiple grayscale, color flow and Doppler images of the right lower extremity deep venous systems were obtained and reviewed. COMPARISON:No prior studies for comparison. FINDINGS: The common femoral, superficial femoral and popliteal veins demonstrate normal respiratory variation, augmentation and compressibility. Color flow is also seen within the posterior tibial, pe roneal, greater saphenous and profunda veins. IMPRESSION: 1: No lower extremity deep venous thrombosis. Reviewed, dictated and finalized at location B.
[2022-12-07 13:04] VITALS: BP 106/45; PULSE 56; RESP 18; TEMP 36.7; O2SAT 99
[2022-12-07] MEDS: traMADol HCL (*CRX) 50 MG TABLET PO (15:59)
--- NOTE | 2022-12-07 16:09 | ED.GENADULT ---
HPI - General Adult General Chief complaint: Back Pain/Injury Stated complaint: weakness Time Seen by Provider: 12/07/22 14:43 Source: patient, RN notes reviewed and old records reviewed Mode of arrival: ambulatory Limitations: no limitations History of Present Illness HPI narrative: This is an 82 year old female who presents for evaluation of leg pain. Patient reports having bilateral leg pain but it is worse in right thigh. She also reports pain located right posterior hip and lower back. She reports she had difficulty sleeping last night due to her pain. She has been taking tylenol without relief. She also reports history of bilateral leg cramping but denies having now. She denies any recent falls. She denies leg numbness or tingling. She thinks she has lump to right posterior thigh. Related Data Home Medications Medication Instructions Recorded Confirmed melatonin 3 mg tablet 3 mg PO HS 10/31/21 12/05/22 sotalol 80 mg tablet 80 mg PO BID 04/18/22 12/05/22 Allergies Allergy/AdvReac Type Severity Reaction Status Date / Time Penicillins Allergy Severe Hives Verified 12/05/22 12:49 nitrofurantoin Allergy Intermediate Hives Verified 12/05/22 12:49 [From Macrobid] Quinolones Allergy Mild Unknown Verified 12/05/22 12:49 cefprozil Allergy Unknown Unknown Verified 12/05/22 12:49 cefuroxime Allergy Unknown Unknown Verified 12/05/22 12:49 Cephalosporins Allergy Unknown Unknown Verified 12/05/22 12:49 gatifloxacin Allergy Unknown Unknown Verified 12/05/22 12:49 metronidazole Allergy Unknown Unknown Verified 12/05/22 12:49 erythromycin base AdvReac Unknown Stomach Verified 12/05/22 12:49 cramps loratadine [From Claritin] AdvReac Unknown Jittery Verified 12/05/22 12:49 PMFSH Past Medical History Medical History Anxiety Aortic valve regurgitation Moderate by echocardiogram in October 2018. Followed by Dr. Velasco. Arthritis Benzodiazepine dependence BMI 23.0-23.9, adult BMI 28.0-28.9,adult BMI 29.0-29.9,adult Bronchiectasis Prior imaging demonstrated bronchiectasis in bilateral lower lobes with chronic scarring. Chronic kidney disease, stage 3 Baseline creatinine between 1.20 and 1.40. Chronic midline low back pain with sciatica Dementia Reported by daughter, however the patient disputes this. Depression Diverticulitis Gastroesophageal reflux disease Hyperlipidemia Hypertension Nausea Obstructive sleep apnea Paroxysmal atrial fibrillation She has declined anticoagulation and antiarrhythmics previously but is now on metoprolol daily. She is followed by Dr. Velasco. Surgical History Surgical History History of appendectomy History of cardiac catheterization No known intervention. History of cataract surgery History of cholecystectomy History of tooth extraction Status post appendectomy Status post cataract extraction Status post hysterectomy Status post tubal ligation Family History Family History Father Acute myocardial infarction Family history of alcoholism Gout Tobacco abuse Mother Family history of alcoholism Sibling Acute myocardial infarction Heart disease Sibling Brain aneurysm Daughter Bowel perforation July 2020 sounds like it may have been a bowel perforation related to hernia and possibly some diabetic problems.. Daughter Heart disease age 35 of heart attack Acute myocardial infarction Daughter COVID-19 Cyst of breast Social History Social History Social History: The patient has been since 2017. She lives in [place] with her daughter and son-in-law. Grandson and great grandson live next door. She has 3 daughters, 1 from an PA at age 30, an
[2022-12-07 16:22] LABS: Basophils Absolute Auto 0.1 K/mm3 (0.0-0.1); Basophils Percent Auto 0.8 % (0.2-1.2); Eosinophils Absolute Auto 0.2 K/mm3 (0-0.3); Eosinophils Percent Auto 2.5 % (0-4.4); Hematocrit 41.6 % (37.0-47.0); Hemoglobin 13.5 g/dL (12.0-15.0); Immature Granulocyte Absolute 0.04 K/mm3 (0.00-0.031); Immature Granulocyte Percent A 0.5 % (0-0.5); Lymphocytes Absolute Auto 2.13 K/mm3 (0.9-3.2); Lymphocytes Percent Auto 24.2 % (18.3-44.2); Mean Corpuscular HGB Conc 32.5 g/dl (32-36); Mean Corpuscular Hemoglobin 30.3 pg (26-34); Mean Corpuscular Volume 93.3 fl (80-100); Mean Platelet Volume 10.7 fl (7.4-10.4); Monocytes Absolute Auto 0.7 K/mm3 (0.1-0.6); Monocytes Percent Auto 8.2 % (2.6-8.5); Neutrophils Absolute Auto 5.6 K/mm3 (1.3-6.7); Neutrophils Percent Auto 63.8 % (45.5-73.1); Platelet Count Result 238 k/mm3 (150-375); Red Blood Count 4.46 M/mm3 (4.2-5.4); Red Cell Distribution Width 13.8 % (11.5-14.5); White Blood Count 8.8 K/mm3 (4.5-10.0)
[2022-12-07 16:35] LABS: Alanine Aminotransferase 19 U/L (6-35); Albumin Level 4.7 g/dL (3.5-5.1); Alkaline Phosphatase 113 U/L (38-126); Anion Gap 10 mmol/L (8-16); Aspartate Amino Transferase 27 U/L (14-36); Bilirubin,Total 0.7 mg/dL (0.2-1.3); Blood Urea Nitrogen 15 mg/dL (7-17); Calcium 9.6 mg/dL (8.4-10.2); Carbon Dioxide 24 mmol/L (22-30); Chloride 104 mmol/L (98-107); Creatine Kinase 114 U/L (30-135); Estimated CRCL calculation 23 ml/min; Estimated Glomerular Filt Rate 36; Glucose 105 mg/dL (65-110); Potassium 4.3 mmol/L (3.4-5.0); Sodium 138 mmol/L (137-145)
[2022-12-07 16:49] LABS: Appearance Urine Clear (Clear); Bacteria Urine None Seen /hpf; Bilirubin Urine Negative (Negative); Blood Urine Trace (Negative); Color Urine Yellow (Yellow); Glucose Urine UA Negative (Negative); INR 1.3; Ketones Urine Negative (Negative); Leukocyte Esterase Ur 1+ LEU/UL (Negative); Need Manual Microscopic Reviewed; Nitrate Urine Negative (Negative); Non Pathogenic Casts 0-2; Protein Urine Negative (Negative); Prothrombin Time 15.6 Seconds (11.1-14.7); RBC Urine 0-2 /hpf (0-2); Specific Grav Ur 1.007 (1.001-1.035); Squamous Epithelial Cell Urine None seen /hpf (Few); Urobilinogen Urine 0.2 mg/dL (<2.0); WBC Urine 0-5 /hpf
[2022-12-07 16:51] LABS: Partial Thromboplastin Time 31.7 SECONDS (22.3-36.8)
[2022-12-07 16:53] LABS: Add Urine Microscopic? YES
[2022-12-07 18:15] VITALS: BP 111/52; PULSE 61; RESP 16; TEMP 36.9; O2SAT 98
== END 2022-12-07 18:15 | disposition home or self-care (01) ==
PROVIDERS: Emergency Provider General Practice; PCP Family Medicine
DX: M54.41 Lumbago with sciatica, right side (principal); I48.0 Paroxysmal atrial fibrillation; I35.1 Nonrheumatic aortic (valve) insufficiency; I12.9 Hypertensive chronic kidney disease with stage 1 through stage 4 chronic kidney disease, or unspecified chronic kidney disease; N18.30 Chronic kidney disease, stage 3 unspecified; E78.5 Hyperlipidemia, unspecified; G47.33 Obstructive sleep apnea (adult) (pediatric); K21.9 Gastro-esophageal reflux disease without esophagitis; M19.90 Unspecified osteoarthritis, unspecified site; F41.9 Anxiety disorder, unspecified; F32.A Depression, unspecified; Z98.49 Cataract extraction status, unspecified eye; Z90.49 Acquired absence of other specified parts of digestive tract; Z90.710 Acquired absence of both cervix and uterus; Z79.01 Long term (current) use of anticoagulants; Z79.82 Long term (current) use of aspirin; M51.36 Other intervertebral disc degeneration, lumbar region
CPT/HCPCS: 36415; 72131; 80053; 81001; 82550; 85025; 85610; 85730; 93971; 99284; A9270

== ENCOUNTER 2022-12-19 11:50 | Emergency (ER) | payer MEDICARE, SELFPAY ==
[2022-12-19] VITALS (8 sets, daily range): BP systolic 149–207; BP diastolic 63–86; PULSE 48–61; RESP 15–24
--- NOTE | ~2022-12-19 | XR_ITS ---
EXAMINATION: XR chest 2V DATE: 12/19/2022 12:47 INDICATION: Shortness of breath and weakness TECHNIQUE: PA and lateral views of the chest were obtained. COMPARISON: Chest radiograph dated 12/02/2022 and 10/31/[address] studies dated 12/31/2021 and 11/09/2022 FINDINGS: No recent change in a lenticular opacity in the right upper lung zone appears more prominent than on 10/31/2021 consistent with treated malignancy. No new airspace opacities, pulmonary edema, pleural effu jason or pneumothorax. Arch size is normal. Cholecystectomy clips in right upper quadrant. Thoracic ky phosis with moderate spondylosis. IMPRESSION: 1. Unchanged lenticular opacity right upper lung zone consistent with treated lung cancer. No acute c ardiopulmonary disease. Reviewed, dictated and finalized at location A. IMPRESSION: 1. Unchanged lenticular opacity right upper lung zone consistent with treated l rosalia cancer. No acute cardiopulmonary disease.
--- NOTE | 2022-12-19 12:35 | ECG_ITS ---
Measurements Intervals [place] Rate: 49 P: -10 [place]: 201 QRS: -23 QRSD: 84 T: -6 QT: 484 QTc: 441 Interpretive Statements SINUS BRADYCARDIA BORDERLINE LEFT AXIS DEVIATION [QRS AXIS < -20] LOW QRS VOLTAGE IN PRECORDIAL LEADS [QRS DEFLECTION < 1.0 mV IN CHEST LEADS] VOLTAGE CRITERIA FOR LVH [MEETS CRITERIA IN ONE OF: R(aVL), S(V1), R(V5), R(V5/V6)+S(V1)] COMPARED TO ECG 12/02/2022 21:44:40 SINUS BRADYCARDIA NOW PRESENT Electronically Signed On 12-20-2022 13:55:58 CDT by Rei Kaur M.D.
--- NOTE | 2022-12-19 12:37 | ED.WEAKNESS ---
HPI - Weakness General Chief complaint: Weakness Stated complaint: Weak, cant catch my breath Time Seen by Provider: 12/19/22 12:10 History of Present Illness HPI Narrative: Patient is an 82-year-old female presenting with generalized weakness and shortness of breath. Patient states that for the last several weeks she has been feeling generally weak as well as short of breath. States that it feels like she needs to catch her breath. Patient states that she lives with her daughter and son-in-law. States that her daughter takes very good care of her but she does not get along with her son-in-law at all. States that she mostly just sits in her chair in her bedroom during the day when her son-in-law's home and her daughter is at work. Patient is also concerned that they are going out of town in May and leaving her. States that her grandson lives next door and also helps take care of her. Patient denies any new pain. No headache, vision changes, numbness or weakness, chest pain, cough, abdominal pain, nausea or vomiting, diarrhea, dysuria, leg swelling. Patient states she was recently treated for UTI. Related Data Home Medications Medication Instructions Recorded Confirmed melatonin 3 mg tablet 3 mg PO HS 10/31/21 12/05/22 sotalol 80 mg tablet 80 mg PO BID 04/18/22 12/05/22 Allergies Allergy/AdvReac Type Severity Reaction Status Date / Time Penicillins Allergy Severe Hives Verified 12/05/22 12:49 nitrofurantoin Allergy Intermediate Hives Verified 12/05/22 12:49 [From Macrobid] Quinolones Allergy Mild Unknown Verified 12/05/22 12:49 cefprozil Allergy Unknown Unknown Verified 12/05/22 12:49 cefuroxime Allergy Unknown Unknown Verified 12/05/22 12:49 Cephalosporins Allergy Unknown Unknown Verified 12/05/22 12:49 gatifloxacin Allergy Unknown Unknown Verified 12/05/22 12:49 metronidazole Allergy Unknown Unknown Verified 12/05/22 12:49 erythromycin base AdvReac Unknown Stomach Verified 12/05/22 12:49 cramps loratadine [From Claritin] AdvReac Unknown Jittery Verified 12/05/22 12:49 Review of Systems Review of Systems: All systems reviewed & are unremarkable except as noted in HPI and below PMFSH Past Medical History Medical History Anxiety Aortic valve regurgitation Moderate by echocardiogram in October 2018. Followed [address] Dr. Velasco. Arthritis Benzodiazepine dependence BMI 23.0-23.9, adult BMI 28.0-28.9,adult BMI 29.0-29.9,adult Bronchiectasis Prior imaging demonstrated bronchiectasis in bilateral lower lobes with chronic scarring. Chronic kidney disease, stage 3 Baseline creatinine between 1.20 and 1.40. Chronic midline low back pain with sciatica Dementia Reported by daughter, however the patient disputes this. Depression Diverticulitis Gastroesophageal reflux disease Hyperlipidemia Hypertension Nausea Obstructive sleep apnea Paroxysmal atrial fibrillation She has declined anticoagulation and antiarrhythmics previously but is now on metoprolol daily. She is followed by Dr. Velasco. Surgical History Surgical History History of appendectomy History of cardiac catheterization No known intervention. History of cataract surgery History of cholecystectomy History of tooth extraction Status post appendectomy Status post cataract extraction Status post hysterectomy Status post tubal ligation Family History Family History Father Acute myocardial infarction Family history of alcoholism Gout Tobacco abuse Mother Family history of alcoholism Sibling Acute myocardial infarction Heart disease Sibling Brain aneurysm Daughter Bowel perforation July 2020 sounds like it may have been a bowel perforation related to hernia and possibly some diabetic problems.. Daughter He
[2022-12-19] MEDS: SODIUM CHLORIDE 0.9% IV 1,000 ML 999 ML IV CONT (13:10)
[2022-12-19 13:13] LABS: Basophils Percent Auto 0.5 % (0.2-1.2); Eosinophils Absolute Auto 0.2 K/mm3 (0-0.3); Hematocrit 37.7 % (37.0-47.0); Hemoglobin 12.2 g/dL (12.0-15.0); Immature Granulocyte Absolute 0.02 K/mm3 (0.00-0.031); Immature Granulocyte Percent A 0.3 % (0-0.5); Lymphocytes Absolute Auto 1.59 K/mm3 (0.9-3.2); Lymphocytes Percent Auto 20.2 % (18.3-44.2); Mean Corpuscular HGB Conc 32.4 g/dl (32-36); Mean Corpuscular Hemoglobin 29.2 pg (26-34); Mean Corpuscular Volume 90.2 fl (80-100); Mean Platelet Volume 10.5 fl (7.4-10.4); Monocytes Absolute Auto 0.6 K/mm3 (0.1-0.6); Neutrophils Absolute Auto 5.5 K/mm3 (1.3-6.7); Platelet Count Result 222 k/mm3 (150-375); Red Blood Count 4.18 M/mm3 (4.2-5.4); Red Cell Distribution Width 13.9 % (11.5-14.5); White Blood Count 7.9 K/mm3 (4.5-10.0)
[2022-12-19 13:17] LABS: Appearance Urine Clear (Clear); Bacteria Urine None Seen /hpf; Bilirubin Urine Negative (Negative); Blood Urine Negative (Negative); Color Urine Yellow (Yellow); Glucose Urine UA Negative (Negative); Ketones Urine Negative (Negative); Leukocyte Esterase Ur Trace LEU/UL (Negative); Nitrate Urine Negative (Negative); Non Pathogenic Casts 0-2; Protein Urine Negative (Negative); RBC Urine 0-2 /hpf (0-2); Specific Grav Ur 1.006 (1.001-1.035); Squamous Epithelial Cell Urine None seen /hpf (Few); Urobilinogen Urine 0.2 mg/dL (<2.0); WBC Urine 0-5 /hpf
[2022-12-19 13:21] LABS: Alanine Aminotransferase 17 U/L (6-35); Albumin Level 4.4 g/dL (3.5-5.1); Alkaline Phosphatase 82 U/L (38-126); Anion Gap 7 mmol/L (8-16); Aspartate Amino Transferase 23 U/L (14-36); Bilirubin,Total 0.8 mg/dL (0.2-1.3); Blood Urea Nitrogen 13 mg/dL (7-17); Calcium 9.4 mg/dL (8.4-10.2); Carbon Dioxide 27 mmol/L (22-30); Chloride 102 mmol/L (98-107); Estimated CRCL calculation 31 ml/min; Estimated Glomerular Filt Rate 47; Glucose 119 mg/dL (65-110); Sodium 136 mmol/L (137-145)
[2022-12-19 13:23] LABS: INR 1.5; Prothrombin Time 17.2 Seconds (11.1-14.7)
[2022-12-19 13:25] LABS: Partial Thromboplastin Time 30.3 SECONDS (22.3-36.8)
[2022-12-19 13:30] LABS: NT Pro B Type Natriuretic Pept 358 pg/mL (19.9-100)
[2022-12-19 13:31] LABS: D Dimer 0.36 ug/mL (<0.48)
[2022-12-19 13:33] LABS: Troponin I < 0.012 ng/mL (0.000-0.034)
[2022-12-19 13:39] LABS: Add Urine Microscopic? YES
[2022-12-19 13:49] LABS: Influenza A QL RT-PCR Negative (Negative); Influenza B QL RT-PCR Negative (Negative); RSV RNA, RT-PCR Negative (Negative); SARS-CoV-2 RNA PCR Negative (Negative)
[2022-12-19 16:06] LABS: Troponin I < 0.012 ng/mL (0.000-0.034)
== END 2022-12-19 18:06 | disposition home or self-care (01) ==
PROVIDERS: Emergency Provider Emergency Medicine; PCP Family Medicine
DX: R53.1 Weakness (principal); R06.00 Dyspnea, unspecified; Z20.822 Contact with and (suspected) exposure to COVID-19; F41.9 Anxiety disorder, unspecified; M19.90 Unspecified osteoarthritis, unspecified site; I12.9 Hypertensive chronic kidney disease with stage 1 through stage 4 chronic kidney disease, or unspecified chronic kidney disease; N18.30 Chronic kidney disease, stage 3 unspecified; K21.9 Gastro-esophageal reflux disease without esophagitis; I48.91 Unspecified atrial fibrillation; E78.5 Hyperlipidemia, unspecified
CPT/HCPCS: 36415; 71046; 80053; 81001; 83880; 84443; 84484; 85025; 85380; 85610; 85730; 87637; 93005; 96360; 99283; J7030

== ENCOUNTER 2023-02-05 19:45 | Emergency (ER) | payer MEDICARE, SELFPAY ==
--- NOTE | ~2023-02-05 | XR_ITS ---
XR chest 2V DATE: 02/05/2023 20:24 INDICATION: Tachycardia TECHNIQUE: PA and lateral views COMPARISON: Serial chest radiographs dating back to 11/01/2019 FINDINGS: Chronic stable ovoid opacity is again noted in the right upper lobe, mildly diminished in p rominence since 06/16/2022, likely due to post radiation fibrosis. No pulmonary infiltrate or consolidation or new pulmonary opacity is noted. No pleural effusion or pu lmonary vascular congestion or pneumothorax. No suspicious osteolytic or osteoblastic lesions are noted. There is osteopenia. IMPRESSION: Chronic right upper lobe opacity, likely postoperative radiation change No active cardiopulmonary disease or significant change since recent chest radiographs Reviewed, dictated and finalized at location A. IMPRESSION: Chronic right upper lobe opacity, likely postoperative radiation ch neto No active cardiopulmonary disease or significant change since recent chest radi ographs
--- NOTE | 2023-02-05 19:46 | ECG_ITS ---
Measurements Intervals [place] Rate: 70 P: 25 [place]: 220 QRS: -20 QRSD: 95 T: 13 QT: 411 QTc: 445 Interpretive Statements SINUS RHYTHM WITH FIRST DEGREE AV BLOCK LOW QRS VOLTAGE IN PRECORDIAL LEADS [QRS DEFLECTION < 1.0 mV IN CHEST LEADS] MODERATE VOLTAGE CRITERIA FOR LVH, CONSIDER NORMAL VARIANT [MEETS CRITERIA IN ONE OF: R(aVL), S(V1), R(V5), R(V5/V6)+S(V1)] COMPARED TO ECG 12/19/2022 13:05:43 SLIGHTLY LONGER CA INTERVAL, NO OTHER DIFFERENCE Electronically Signed On 02-06-2023 11:20:50 CDT by Freddie Velasco M.D.
[2023-02-05 20:01] VITALS: BP 145/72; PULSE 78; RESP 16; TEMP 36.4; O2SAT 99
[2023-02-05 21:16] LABS: Basophils Absolute Auto 0.1 K/mm3 (0.0-0.1); Basophils Percent Auto 0.6 % (0.2-1.2); Eosinophils Absolute Auto 0.2 K/mm3 (0-0.3); Eosinophils Percent Auto 2.9 % (0-4.4); Hematocrit 37.9 % (37.0-47.0); Hemoglobin 12.3 g/dL (12.0-15.0); Immature Granulocyte Absolute 0.04 K/mm3 (0.00-0.031); Immature Granulocyte Percent A 0.5 % (0-0.5); Lymphocytes Absolute Auto 2.48 K/mm3 (0.9-3.2); Lymphocytes Percent Auto 31.6 % (18.3-44.2); Mean Corpuscular HGB Conc 32.5 g/dl (32-36); Mean Corpuscular Hemoglobin 29.6 pg (26-34); Mean Corpuscular Volume 91.3 fl (80-100); Mean Platelet Volume 10.4 fl (7.4-10.4); Monocytes Absolute Auto 0.7 K/mm3 (0.1-0.6); Monocytes Percent Auto 8.7 % (2.6-8.5); Neutrophils Absolute Auto 4.4 K/mm3 (1.3-6.7); Neutrophils Percent Auto 55.7 % (45.5-73.1); Platelet Count Result 204 k/mm3 (150-375); Red Blood Count 4.15 M/mm3 (4.2-5.4); Red Cell Distribution Width 14.2 % (11.5-14.5); White Blood Count 7.8 K/mm3 (4.5-10.0)
[2023-02-05 21:26] LABS: INR 1.3; Prothrombin Time 16.4 Seconds (11.1-14.7)
[2023-02-05 21:28] LABS: Partial Thromboplastin Time 31.8 SECONDS (22.3-36.8)
[2023-02-05 22:35] VITALS: PULSE 65
[2023-02-05 23:12] LABS: Alanine Aminotransferase 19 U/L (6-35); Albumin Level 3.7 g/dL (3.5-5.1); Alkaline Phosphatase 82 U/L (38-126); Anion Gap 5 mmol/L (8-16); Aspartate Amino Transferase 28 U/L (14-36); Bilirubin,Total 0.5 mg/dL (0.2-1.3); Blood Urea Nitrogen 13 mg/dL (7-17); Carbon Dioxide 28 mmol/L (22-30); Chloride 106 mmol/L (98-107); Estimated Glomerular Filt Rate 47; Glucose 139 mg/dL (65-110); Lipase 81 U/L (23-300); Potassium 3.7 mmol/L (3.4-5.0); Sodium 139 mmol/L (137-145)
[2023-02-05 23:20] LABS: NT Pro B Type Natriuretic Pept 1230 pg/mL (19.9-100)
[2023-02-05 23:23] LABS: Troponin I < 0.012 ng/mL (0.000-0.034)
--- NOTE | 2023-02-05 23:27 | ED.GENADULT ---
HPI - General Adult General Chief complaint: Arrhythmia/Palpitations Stated complaint: afib Time Seen by Provider: 02/05/23 20:42 History of Present Illness HPI narrative: Patient is a 83-year-old female who presents emerged department with chief complaint of shortness of breath and palpitations. The patient reports she has history of atrial fibrillation she takes sotalol and is on apixaban the patient reports that today she took a dose of gabapentin and felt as though her heart was beating irregular she also felt a little bit more short of breath than usual. Patient denied chest pain with this. Related Data Home Medications Medication Instructions Recorded Confirmed melatonin 3 mg tablet 3 mg PO HS 10/31/21 12/26/22 sotalol 80 mg tablet 80 mg PO BID 04/18/22 12/26/22 Allergies Allergy/AdvReac Type Severity Reaction Status Date / Time Penicillins Allergy Severe Hives Verified 02/05/23 19:46 nitrofurantoin Allergy Intermediate Hives Verified 02/05/23 19:46 [From Macrobid] Quinolones Allergy Mild Unknown Verified 02/05/23 19:46 cefprozil Allergy Unknown Unknown Verified 02/05/23 19:46 cefuroxime Allergy Unknown Unknown Verified 02/05/23 19:46 Cephalosporins Allergy Unknown Unknown Verified 02/05/23 19:46 gatifloxacin Allergy Unknown Unknown Verified 02/05/23 19:46 metronidazole Allergy Unknown Unknown Verified 02/05/23 19:46 erythromycin base AdvReac Unknown Stomach Verified 02/05/23 19:46 cramps loratadine [From Claritin] AdvReac Unknown Jittery Verified 02/05/23 19:46 Review of Systems Review of Systems: A 10 system review of systems was completed on the patient and is negative except for what is stated in the HPI. Nursing and ancillary documentation was reviewed. [facility] Past Medical History Medical History Anxiety Aortic valve regurgitation Moderate by echocardiogram in October 2018. Followed by Dr. Velasco. Arthritis Benzodiazepine dependence BMI 23.0-23.9, adult BMI 28.0-28.9,adult BMI 29.0-29.9,adult BMI 30.0-30.9,adult Bronchiectasis Prior imaging demonstrated bronchiectasis in bilateral lower lobes with chronic scarring. Chronic kidney disease, stage 3 Baseline creatinine between 1.20 and 1.40. Chronic midline low back pain with sciatica Dementia Reported by daughter, however the patient disputes this. Depression Diverticulitis Gastroesophageal reflux disease Hyperlipidemia Hypertension Nausea Obstructive sleep apnea Paroxysmal atrial fibrillation She has declined anticoagulation and antiarrhythmics previously but is now on metoprolol daily. She is followed by Dr. Velasco. Surgical History Surgical History History of appendectomy History of cardiac catheterization No known intervention. History of cataract surgery History of cholecystectomy History of tooth extraction Status post appendectomy Status post cataract extraction Status post hysterectomy Status post tubal ligation Family History Family History Father Acute myocardial infarction Family history of alcoholism Gout Tobacco abuse Mother Family history of alcoholism Sibling Acute myocardial infarction Heart disease Sibling Brain aneurysm Daughter Bowel perforation July 2020 sounds like it may have been a bowel perforation related to hernia and possibly some diabetic problems.. Daughter Heart disease age 35 of heart attack Acute myocardial infarction Daughter COVID-19 Cyst of breast Social History Social History Social History: The patient has been since 2017. She lives in [place] with her daughter and son-in-law. Grandson and great grandson live next door. She
[2023-02-05] MEDS: FUROSEMIDE INJ 40 MG/4 ML VIAL 20 MG IV PUSH (23:41)
[2023-02-06 00:04] VITALS: BP 190/60; PULSE 58; RESP 17; O2SAT 98
== END 2023-02-06 00:06 | disposition home or self-care (01) ==
PROVIDERS: Emergency Provider Emergency Medicine; PCP Family Medicine
DX: R06.00 Dyspnea, unspecified (principal); R00.2 Palpitations; I48.0 Paroxysmal atrial fibrillation; I35.1 Nonrheumatic aortic (valve) insufficiency; I12.9 Hypertensive chronic kidney disease with stage 1 through stage 4 chronic kidney disease, or unspecified chronic kidney disease; N18.30 Chronic kidney disease, stage 3 unspecified; K21.9 Gastro-esophageal reflux disease without esophagitis; E78.5 Hyperlipidemia, unspecified; G47.33 Obstructive sleep apnea (adult) (pediatric); M19.90 Unspecified osteoarthritis, unspecified site; F32.A Depression, unspecified; Z90.49 Acquired absence of other specified parts of digestive tract; Z98.49 Cataract extraction status, unspecified eye; Z79.01 Long term (current) use of anticoagulants
CPT/HCPCS: 36415; 71046; 80053; 83690; 83880; 84484; 85025; 85610; 85730; 93005; 96374; 99284; J1940

== ENCOUNTER 2023-03-06 09:32 | Outpatient (CLI) | payer MEDICARE, SELFPAY ==
--- NOTE | ~2023-03-06 | CT_ITS ---
Clinical Indication: Lung cancer CT Scan of the Chest with Contrast: Technique: Contiguous sections were acquired throughout the chest after intravenous administration of 75 cc of Omnipaque 350. Dose reduction technique was used on this scan by utilizing automated exposu re control and iterative reconstruction technique. The dose-length product (DLP) was 202.65 mGy-cm. COMPARISON: 11/09/2022 Findings: There is no evidence of any significant mediastinal, hilar or axillary lymphadenopathy. There is no f illing defect in the pulmonary arterial tree to suggest pulmonary embolus. There is no evidence of ao rtic dissection or aneurysm. Coronary calcification are present. There is no evidence of pleural or pericardial effusion. There has been probable prior partial right upper lobectomy versus radiation therapy. There is chroni c postsurgical change or atelectasis near the right lung apex. No suspicious pulmonary nodule identif ied. Images through the upper abdomen reveal no abnormalities. Impression: No evidence for active malignancy or metastatic disease. Stable postoperative or post therapy change at the right upper lobe region. Reviewed, dictated and finalized at location . Impression: No evidence for active malignancy or metastatic disease. Stable postoperative or post therapy change at the right upper lobe region.
== END 2023-03-06 09:33 | disposition home or self-care (01) ==
PROVIDERS: PCP Family Medicine; Visit Provider Internal Medicine Hematology & Oncology
DX: C34.90 Malignant neoplasm of unspecified part of unspecified bronchus or lung (principal)
CPT/HCPCS: 71260; Q9967

== ENCOUNTER 2023-03-13 13:46 | Outpatient (CLI) | payer MEDICARE, SELFPAY ==
[2023-03-13 13:59] LABS: Basophils Absolute Auto 0.1 K/mm3 (0.0-0.1); Basophils Percent Auto 0.7 % (0.2-1.2); Eosinophils Absolute Auto 0.2 K/mm3 (0-0.3); Eosinophils Percent Auto 3.1 % (0-4.4); Hemoglobin 12.5 g/dL (12.0-15.0); Immature Granulocyte Absolute 0.02 K/mm3 (0.00-0.031); Immature Granulocyte Percent A 0.3 % (0-0.5); Lymphocytes Absolute Auto 2.33 K/mm3 (0.9-3.2); Mean Corpuscular HGB Conc 32.1 g/dl (32-36); Mean Corpuscular Hemoglobin 29.5 pg (26-34); Mean Platelet Volume 9.8 fl (7.4-10.4); Monocytes Absolute Auto 0.7 K/mm3 (0.1-0.6); Monocytes Percent Auto 9.2 % (2.6-8.5); Neutrophils Absolute Auto 4.2 K/mm3 (1.3-6.7); Neutrophils Percent Auto 55.7 % (45.5-73.1); Platelet Count Result 199 k/mm3 (150-375); Red Blood Count 4.24 M/mm3 (4.2-5.4); Red Cell Distribution Width 13.7 % (11.5-14.5); White Blood Count 7.5 K/mm3 (4.5-10.0)
[2023-03-13 14:03] LABS: Blood Urea Nitrogen 17 mg/dL (8-26); Carbon Dioxide 27 mmol/L (22-30); Chloride 101 mmol/L (98-109); Estimated Glomerular Filt Rate 33; Glucose 110 mg/dL (70-105); Ionized Calcium (POC) 1.26 mmol/L (1.11-1.31); Potassium 4.3 mmol/L (3.5-4.9); Sodium 140 mmol/L (138-146)
[2023-03-13 15:00] LABS: Alanine Aminotransferase 16 U/L (6-35); Alkaline Phosphatase 74 U/L (38-126); Anion Gap 7 mmol/L (8-16); Aspartate Amino Transferase 31 U/L (14-36); Bilirubin,Total 0.8 mg/dL (0.2-1.3); Blood Urea Nitrogen 17 mg/dL (7-17); Calcium 9.3 mg/dL (8.4-10.2); Carbon Dioxide 30 mmol/L (22-30); Chloride 102 mmol/L (98-107); Estimated Glomerular Filt Rate 39; Glucose 110 mg/dL (65-110); Potassium 4.3 mmol/L (3.4-5.0); Sodium 139 mmol/L (137-145)
== END 2023-03-13 13:47 | disposition home or self-care (01) ==
LOC: ANHLAB 13:46
PROVIDERS: PCP Family Medicine; Visit Provider Internal Medicine Hematology & Oncology
DX: C34.90 Malignant neoplasm of unspecified part of unspecified bronchus or lung (principal)
CPT/HCPCS: 36415; 80047; 80053; 85025

== ENCOUNTER 2023-04-29 13:46 | Emergency (ER) | payer MEDICARE, SELFPAY ==
--- NOTE | ~2023-04-29 | CT_ITS ---
CT of the Abdomen and Pelvis: Indication: Abdominal pain Technique: 2.5 mm axial scans were obtained through the abdomen and pelvis following intravenous adm inistration of 100 cc of Omnipaque 350. Dose reduction technique was used on this scan by utilizing a utomated exposure control and iterative reconstruction technique. The dose-length product (DLP) was 4 01.62 mGy-cm. COMPARISON: 10/14/2022 Findings: Scans through the lung bases are unremarkable. The liver, spleen, pancreas, adrenals and kidneys are within normal limits. Cholecystectomy clips are present. There are atherosclerotic calcifications of the aorta. No lymphadenopathy. No bowel obstruction or bowel wall thickening. There is no evidence to suggest acute appendicitis. Images through the pelvis were performed. Urinary bladder unremarkable. No adnexal mass seen. No asci dustin. Impression: No acute abnormality seen. Reviewed, dictated and finalized at [facility]. Impression: No acute abnormality seen.
--- NOTE | ~2023-04-29 | XR_ITS ---
Clinical Indication: Weakness PA and lateral views of the chest: Comparison: 02/05/2023 Findings: Stable airspace opacity at the right upper lobe region noted. No acute pulmonary abnormalit y seen.. Cardiomediastinal silhouette is within normal limits. Bones and soft tissues are unremarkab le. Impression: Stable airspace opacity right upper lobe. Based on prior CT, this is most compatible postoperative ch neto. No acute abnormality seen. Reviewed, dictated and finalized at location M. Impression: Stable airspace opacity right upper lobe. Based on prior CT, this is most darnell tible postoperative change. No acute abnormality seen.
[2023-04-29 13:51] VITALS: BP 190/62; PULSE 73; RESP 20; TEMP 36.6; O2SAT 97
--- NOTE | 2023-04-29 13:51 | ECG_ITS ---
Measurements Intervals [place] Rate: 61 P: 8 CT: 201 QRS: -17 QRSD: 81 T: 13 QT: 435 QTc: 441 Interpretive Statements SINUS RHYTHM BORDERLINE AV CONDUCTION DELAY DELAYED PRECORDIAL R/S TRANSITION LOW QRS VOLTAGE IN PRECORDIAL LEADS LEFT VENTRICULAR HYPERTROPHY BORDERLINE ECG COMPARED TO ECG 02/05/2023 19:50:53 NO SIGNIFICANT CHANGES Electronically Signed On 04-29-2023 16:03:28 CDT by Seamus Cowan D.O.
[2023-04-29 14:22] LABS: Basophils Percent Auto 0.5 % (0.2-1.2); Eosinophils Absolute Auto 0.4 K/mm3 (0-0.3); Hematocrit 38.8 % (37.0-47.0); Hemoglobin 12.4 g/dL (12.0-15.0); Immature Granulocyte Absolute 0.02 K/mm3 (0.00-0.031); Immature Granulocyte Percent A 0.3 % (0-0.5); Lymphocytes Absolute Auto 1.81 K/mm3 (0.9-3.2); Lymphocytes Percent Auto 23.7 % (18.3-44.2); Mean Corpuscular Hemoglobin 29.4 pg (26-34); Mean Corpuscular Volume 91.9 fl (80-100); Mean Platelet Volume 10.6 fl (7.4-10.4); Monocytes Absolute Auto 0.6 K/mm3 (0.1-0.6); Monocytes Percent Auto 8.2 % (2.6-8.5); Neutrophils Absolute Auto 4.8 K/mm3 (1.3-6.7); Neutrophils Percent Auto 62.3 % (45.5-73.1); Platelet Count Result 224 k/mm3 (150-375); Red Blood Count 4.22 M/mm3 (4.2-5.4); Red Cell Distribution Width 13.8 % (11.5-14.5); White Blood Count 7.6 K/mm3 (4.5-10.0)
[2023-04-29 14:34] LABS: Alanine Aminotransferase 17 U/L (6-35); Albumin Level 4.2 g/dL (3.5-5.1); Alkaline Phosphatase 91 U/L (38-126); Anion Gap 9 mmol/L (8-16); Aspartate Amino Transferase 26 U/L (14-36); Bilirubin,Total 0.7 mg/dL (0.2-1.3); Blood Urea Nitrogen 13 mg/dL (7-17); Calcium 9.6 mg/dL (8.4-10.2); Carbon Dioxide 26 mmol/L (22-30); Chloride 104 mmol/L (98-107); Estimated Glomerular Filt Rate 43; Glucose 115 mg/dL (65-110); Potassium 4.1 mmol/L (3.4-5.0); Sodium 139 mmol/L (137-145)
[2023-04-29 15:08] VITALS: BP 198/75; PULSE 65; RESP 16; O2SAT 99
--- NOTE | 2023-04-29 15:10 | ED.WEAKNESS ---
HPI - Weakness General Chief complaint: Weakness Stated complaint: WEAK X2WKS Time Seen by Provider: 04/29/23 15:10 History of Present Illness HPI Narrative: patient is an 83-year-old female with history of AFib here with generalized weakness. Patient states that about 2 weeks ago she had a service for her brother that . The following day she had her flu shot. She states since that time she has had some increasing fatigue. She notes that she had significant nausea and increased belching over the last 2 weeks which has decreased her p.o. intake. She does note that she has been eating and drinking more than she was previously. She denies any abdominal pain. She has had good stool output and continues to have flatulence. She denies any urinary symptoms. She states that she did discuss her symptoms with her primary care doctor and asked if the flu shot could possibly have triggered her atrial fibrillation. They advised continuing tylenol intake and if her symptoms continue to come to the ED for evaluation. she does endorse some associated shortness of breath, no chest pain. No fever or chills. Related Data Home Medications Medication Instructions Recorded Confirmed melatonin 3 mg tablet 3 mg PO HS 10/31/21 03/01/23 sotalol 80 mg tablet 80 mg PO BID 04/18/22 03/01/23 Allergies Allergy/AdvReac Type Severity Reaction Status Date / Time Penicillins Allergy Severe Hives Verified 03/01/23 08:29 nitrofurantoin Allergy Intermediate Hives Verified 03/01/23 08:29 [From Macrobid] Quinolones Allergy Mild Unknown Verified 03/01/23 08:29 cefprozil Allergy Unknown Unknown Verified 03/01/23 08:29 cefuroxime Allergy Unknown Unknown Verified 03/01/23 08:29 Cephalosporins Allergy Unknown Unknown Verified 03/01/23 08:29 gatifloxacin Allergy Unknown Unknown Verified 03/01/23 08:29 metronidazole Allergy Unknown Unknown Verified 03/01/23 08:29 erythromycin base AdvReac Unknown Stomach Verified 03/01/23 08:29 cramps loratadine [From Claritin] AdvReac Unknown Jittery Verified 03/01/23 08:29 gabapentin AdvReac Severe chest Uncoded 03/01/23 11:32 tightness Review of Systems Review of Systems: CONSTITUTIONAL: Denies fever, chills, or sweats. EYES: Denies visual changes, redness, or discharge. ENT: Denies rhinorrhea, congestion, sore throat, or otalgia. CARDIOVASCULAR: Denies chest pain, palpitations, or edema. RESPIRATORY: Shortness of breath, Denies cough GASTROINTESTINAL: Denies abdominal pain, nausea, denies vomiting, or diarrhea. GENITOURINARY: Denies dysuria or hematuria. SKIN: Denies rash or itching. MUSCULOSKELETAL: Denies back pain, joint pain, or myalgia. NEUROLOGIC: Denies headache, numbness, or weakness. PSYCHIATRIC: Endorses increased sadness, Denies anxiety. No HI/SI. [facility] Past Medical History Medical History Anxiety Aortic valve regurgitation Moderate by echocardiogram in October 2018. Followed by Dr. Velasco. Arthritis Benzodiazepine dependence BMI 23.0-23.9, adult BMI 28.0-28.9,adult BMI 29.0-29.9,adult BMI 30.0-30.9,adult Bronchiectasis Prior imaging demonstrated bronchiectasis in bilateral lower lobes with chronic scarring. Chronic kidney disease, stage 3 Baseline creatinine between 1.20 and 1.40. Chronic midline low back pain with sciatica Dementia Reported by daughter, however the patient disputes this. Depression Diverticulitis Gastroesophageal reflux disease Hyperlipidemia Hypertension Nausea Obstructive sleep apnea Paroxysmal atrial fibrillation She has declined anticoagulation and antiarrhythmics previously but is now on metoprolol daily. She is followed by Dr. Velasco. Surgical History Surgical History History of appendectomy History of cardiac catheterization No known intervention. History of cataract surgery History of cholecystectomy History of tooth extraction
--- NOTE | 2023-04-29 15:11 | PC.NURSE ---
Pt reports she feels weak and just does not want to get out of bed sometimes for the past 2 weeks. Reports she has not felt well since getting flu shot 2 weeks ago. Pt then becomes tearful and talks about how her brother recently passed and she is the only one left in her family then tells me about how she lives with her daughter and her and son-in-law don't get along
[2023-04-29 15:56] LABS: Magnesium 2.2 mg/dL (1.6-2.3)
[2023-04-29] MEDS: PANTOPRAZOLE SODIUM IV 40 MG VIAL IV PUSH (16:08)
[2023-04-29 16:09] LABS: NT Pro B Type Natriuretic Pept 249 pg/mL (19.9-100); Troponin I < 0.012 ng/mL (0.000-0.034)
[2023-04-29 16:13] LABS: Appearance Urine Clear (Clear); Bacteria Urine None Seen /hpf; Bilirubin Urine Negative (Negative); Blood Urine Negative (Negative); Color Urine Yellow (Yellow); Glucose Urine UA Negative (Negative); Hyaline Casts Urine Present /lpf; Ketones Urine Negative (Negative); Leukocyte Esterase Ur 1+ LEU/UL (Negative); Nitrate Urine Negative (Negative); Protein Urine Negative (Negative); RBC Urine 0-2 /hpf (0-2); Specific Grav Ur 1.008 (1.001-1.035); Squamous Epithelial Cell Urine None seen /hpf (Few); Urobilinogen Urine 0.2 mg/dL (<2.0); WBC Urine 0-5 /hpf
[2023-04-29 16:18] LABS: Add Urine Microscopic? YES
[2023-04-29 16:32] LABS: SARS-CoV-2 RNA PCR Negative (Negative)
[2023-04-29 17:59] VITALS: BP 180/60; PULSE 55; RESP 20; O2SAT 98
== END 2023-04-29 18:00 | disposition home or self-care (01) ==
PROVIDERS: Emergency Medicine; Emergency Provider Student in an Organized Health Care Education/Training Program; PCP Family Medicine
DX: R53.1 Weakness (principal); F43.20 Adjustment disorder, unspecified; R10.13 Epigastric pain; R06.02 Shortness of breath; F03.90 Unspecified dementia, unspecified severity, without behavioral disturbance, psychotic disturbance, mood disturbance, and anxiety; I12.9 Hypertensive chronic kidney disease with stage 1 through stage 4 chronic kidney disease, or unspecified chronic kidney disease; N18.30 Chronic kidney disease, stage 3 unspecified; E78.5 Hyperlipidemia, unspecified; I48.0 Paroxysmal atrial fibrillation; Z20.822 Contact with and (suspected) exposure to COVID-19
CPT/HCPCS: 36415; 71046; 74177; 80053; 81001; 83735; 83880; 84484; 85025; 87635; 93005; 96374; 99284; C9113; Q9967

== ENCOUNTER 2023-05-13 11:42 | Emergency (ER) | payer MEDICARE, SELFPAY ==
[2023-05-13] VITALS (34 sets, daily range): BP systolic 114–159; BP diastolic 48–103; PULSE 49–99; RESP 0–24; TEMP 36.2–36.4; O2SAT 97–100
--- NOTE | 2023-05-13 11:44 | ECG_ITS ---
Measurements Intervals [place] Rate: 84 P: [place]: 0 QRS: -22 QRSD: 83 T: 57 QT: 376 QTc: 446 Interpretive Statements ATRIAL FIBRILLATION LEFT VENTRICULAR HYPERTROPHY WITH ST-T CHANGE BASELINE ARTIFACT- I, III, AVL, V2 ABNORMAL ECG COMPARED TO ECG 04/29/2023 14:01:02 ATRIAL FIBRILLATION NOW PRESENT Electronically Signed On 05-13-2023 16:57:39 CDT by Seamus Cowan D.O.
--- NOTE | 2023-05-13 13:55 | ED.NAVMDI ---
HPI - Nausea/Vomiting/Diarrhea General Chief complaint: Arrhythmia/Palpitations Stated complaint: Heart beating fast, weak, nausea Time Seen by Provider: 05/13/23 12:52 History of Present Illness HPI Narrative: Patient is an 83-year-old female with a history of A-fib on Eliquis, hypertension, hyperlipidemia, GERD presenting with nausea. Patient states that she ate extremely greasy chicken nuggets yesterday. Since that time she has been nauseated. She is concerned that they poisoned her. Also states that she keeps feeling like her heart is racing. She is concerned about her A-fib. She denies chest pain or shortness of breath. States that she feels weak all over. No vomiting, abdominal pain, dysuria, diarrhea, leg swelling. No further complaints. Related Data Home Medications Medication Instructions Recorded Confirmed melatonin 3 mg tablet 3 mg PO HS 10/31/21 03/01/23 sotalol 80 mg tablet 80 mg PO BID 04/18/22 03/01/23 Allergies Allergy/AdvReac Type Severity Reaction Status Date / Time Penicillins Allergy Severe Hives Verified 05/13/23 11:43 nitrofurantoin Allergy Intermediate Hives Verified 05/13/23 11:43 [From Macrobid] Quinolones Allergy Mild Unknown Verified 05/13/23 11:43 cefprozil Allergy Unknown Unknown Verified 05/13/23 11:43 cefuroxime Allergy Unknown Unknown Verified 05/13/23 11:43 Cephalosporins Allergy Unknown Unknown Verified 05/13/23 11:43 gatifloxacin Allergy Unknown Unknown Verified 05/13/23 11:43 metronidazole Allergy Unknown Unknown Verified 05/13/23 11:43 erythromycin base AdvReac Unknown Stomach Verified 05/13/23 11:43 cramps loratadine [From Claritin] AdvReac Unknown Jittery Verified 05/13/23 11:43 gabapentin AdvReac Severe chest Uncoded 03/01/23 11:32 tightness Review of Systems Review of Systems: All systems reviewed & are unremarkable except as noted in HPI and below PMFSH Past Medical History Medical History Anxiety Aortic valve regurgitation Moderate by echocardiogram in October 2018. Followed by Dr. Velasco. Arthritis Benzodiazepine dependence BMI 23.0-23.9, adult BMI 28.0-28.9,adult BMI 29.0-29.9,adult BMI 30.0-30.9,adult Bronchiectasis Prior imaging demonstrated bronchiectasis in bilateral lower lobes with chronic scarring. Chronic kidney disease, stage 3 Baseline creatinine between 1.20 and 1.40. Chronic midline low back pain with sciatica Dementia Reported by daughter, however the patient disputes this. Depression Diverticulitis Gastroesophageal reflux disease Hyperlipidemia Hypertension Nausea Obstructive sleep apnea Paroxysmal atrial fibrillation She has declined anticoagulation and antiarrhythmics previously but is now on metoprolol daily. She is followed by Dr. Velasco. Surgical History Surgical History History of appendectomy History of cardiac catheterization No known intervention. History of cataract surgery History of cholecystectomy History of tooth extraction Status post appendectomy Status post cataract extraction Status post hysterectomy Status post tubal ligation Family History Family History Father Acute myocardial infarction Family history of alcoholism Gout Tobacco abuse Mother Family history of alcoholism Sibling Acute myocardial infarction Heart disease Sibling Brain aneurysm Daughter Bowel perforation July 2020 sounds like it may have been a bowel perforation related to hernia and possibly some diabetic problems.. Daughter Heart disease age 35 of heart attack Acute myocardial infarction Daughter COVID-19 Cyst of breast Social History Social History Social History: The patient has been since 2017
[2023-05-13 14:30] LABS: Basophils Absolute Auto 0.1 K/mm3 (0.0-0.1); Basophils Percent Auto 0.8 % (0.2-1.2); Eosinophils Absolute Auto 0.4 K/mm3 (0-0.3); Eosinophils Percent Auto 4.6 % (0-4.4); Hematocrit 42.4 % (37.0-47.0); Hemoglobin 13.5 g/dL (12.0-15.0); Immature Granulocyte Absolute 0.03 K/mm3 (0.00-0.031); Immature Granulocyte Percent A 0.4 % (0-0.5); Lymphocytes Absolute Auto 2.25 K/mm3 (0.9-3.2); Mean Corpuscular HGB Conc 31.8 g/dl (32-36); Mean Corpuscular Hemoglobin 29.5 pg (26-34); Mean Corpuscular Volume 92.8 fl (80-100); Mean Platelet Volume 10.5 fl (7.4-10.4); Monocytes Absolute Auto 0.7 K/mm3 (0.1-0.6); Monocytes Percent Auto 8.4 % (2.6-8.5); Neutrophils Absolute Auto 4.9 K/mm3 (1.3-6.7); Neutrophils Percent Auto 58.8 % (45.5-73.1); Platelet Count Result 250 k/mm3 (150-375); Red Blood Count 4.57 M/mm3 (4.2-5.4); Red Cell Distribution Width 13.8 % (11.5-14.5); White Blood Count 8.3 K/mm3 (4.5-10.0)
[2023-05-13 14:33] LABS: Appearance Urine Clear (Clear); Bilirubin Urine Negative (Negative); Blood Urine Negative (Negative); Color Urine Yellow (Yellow); Glucose Urine UA Negative (Negative); Ketones Urine Negative (Negative); Leukocyte Esterase Ur Negative LEU/UL (Negative); Nitrate Urine Negative (Negative); Protein Urine Negative (Negative); Specific Grav Ur 1.006 (1.001-1.035); Urobilinogen Urine 0.2 mg/dL (<2.0); pH Urine 6.5 (5.0-9.0)
[2023-05-13 14:45] LABS: Add Urine Microscopic? NO
[2023-05-13] MEDS: ONDANSETRON INJ 4 MG/2 ML VIAL IV PUSH (14:55)
[2023-05-13] MEDS: SODIUM CHLORIDE 0.9% IV 1,000 ML 999 ML IV CONT (14:55)
[2023-05-13] MEDS: FAMOTIDINE 20 MG/2 ML VIAL IV PUSH (14:56)
[2023-05-13 14:57] LABS: Alanine Aminotransferase 17 U/L (6-35); Albumin Level 4.3 g/dL (3.5-5.1); Alkaline Phosphatase 90 U/L (38-126); Anion Gap 8 mmol/L (8-16); Aspartate Amino Transferase 25 U/L (14-36); Bilirubin,Total 0.7 mg/dL (0.2-1.3); Blood Urea Nitrogen 15 mg/dL (7-17); Carbon Dioxide 27 mmol/L (22-30); Chloride 105 mmol/L (98-107); Estimated Glomerular Filt Rate 39; Glucose 124 mg/dL (65-110); Lipase 125 U/L (23-300); Magnesium 2.4 mg/dL (1.6-2.3); Potassium 4.3 mmol/L (3.4-5.0); Sodium 140 mmol/L (137-145)
[2023-05-13 15:08] LABS: Troponin I < 0.012 ng/mL (0.000-0.034)
== END 2023-05-13 17:37 | disposition home or self-care (01) ==
PROVIDERS: Emergency Provider Emergency Medicine; PCP Family Medicine
DX: R11.0 Nausea (principal); F41.9 Anxiety disorder, unspecified; M19.90 Unspecified osteoarthritis, unspecified site; I12.9 Hypertensive chronic kidney disease with stage 1 through stage 4 chronic kidney disease, or unspecified chronic kidney disease; N18.30 Chronic kidney disease, stage 3 unspecified; F32.A Depression, unspecified; K21.9 Gastro-esophageal reflux disease without esophagitis; E78.5 Hyperlipidemia, unspecified; G47.30 Sleep apnea, unspecified; I48.91 Unspecified atrial fibrillation
CPT/HCPCS: 36415; 80053; 81003; 83690; 83735; 84484; 85025; 93005; 96361; 96374; 96375; 99284; J2405; J7030

== ENCOUNTER 2023-06-09 18:24 | Emergency (ER) | payer MEDICARE, SELFPAY ==
--- NOTE | ~2023-06-09 | XR_ITS ---
XR chest 2V 06/09/2023 18:49 Indication: Rapid heart rate Procedure: PA and lateral views of the chest Comparison: Comparison to multiple prior studies sequentially, with oldest reviewed study dated 01/2022. Findings: Chronic bandlike opacity right upper thorax, likely attributable to radiation therapy from previous treatment of lung cancer. Heart size normal. Mediastinal contour is stable. No acute focal p neumonia, edema or effusion. Impression: 1: No acute cardiopulmonary disease. 2: Chronic bandlike opacity right upper thorax, most likely post radiation therapy treatment. Reviewed, dictated and finalized at location A. Impression: 1: No acute cardiopulmonary disease. 2: Chronic bandlike opacity right upper thorax, most likely post radiation the rapy treatment.
--- NOTE | 2023-06-09 18:25 | ECG_ITS ---
Measurements Intervals [place] Rate: 88 P: [place]: 0 QRS: -24 QRSD: 86 T: 71 QT: 352 QTc: 426 Interpretive Statements ATRIAL FIBRILLATION VOLTAGE CRITERIA FOR LVH NONSPECIFIC ST & T-WAVE ABNORMALITY Electronically Signed On 06-10-2023 17:10:48 CDT by Tip Hartman M.D.
[2023-06-09 18:41] VITALS: BP 156/82; PULSE 88; RESP 18; TEMP 36.4; O2SAT 98
[2023-06-09 18:52] LABS: Basophils Absolute Auto 0.1 K/mm3 (0.0-0.1); Basophils Percent Auto 0.7 % (0.2-1.2); Eosinophils Absolute Auto 0.3 K/mm3 (0-0.3); Eosinophils Percent Auto 3.9 % (0-4.4); Hematocrit 39.3 % (37.0-47.0); Hemoglobin 12.4 g/dL (12.0-15.0); Immature Granulocyte Absolute 0.03 K/mm3 (0.00-0.031); Immature Granulocyte Percent A 0.4 % (0-0.5); Lymphocytes Absolute Auto 1.81 K/mm3 (0.9-3.2); Lymphocytes Percent Auto 24.5 % (18.3-44.2); Mean Corpuscular HGB Conc 31.6 g/dl (32-36); Mean Corpuscular Hemoglobin 29.3 pg (26-34); Mean Corpuscular Volume 92.9 fl (80-100); Mean Platelet Volume 10.7 fl (7.4-10.4); Monocytes Absolute Auto 0.5 K/mm3 (0.1-0.6); Monocytes Percent Auto 7.2 % (2.6-8.5); Neutrophils Absolute Auto 4.7 K/mm3 (1.3-6.7); Neutrophils Percent Auto 63.3 % (45.5-73.1); Platelet Count Result 198 k/mm3 (150-375); Red Blood Count 4.23 M/mm3 (4.2-5.4); White Blood Count 7.4 K/mm3 (4.5-10.0)
[2023-06-09 19:03] LABS: INR 1.4; Prothrombin Time 17.9 Seconds (11.1-14.7)
[2023-06-09 19:04] LABS: Partial Thromboplastin Time 32.6 SECONDS (22.3-36.8)
[2023-06-09 19:12] LABS: Alanine Aminotransferase 17 U/L (6-35); Albumin Level 4.2 g/dL (3.5-5.1); Alkaline Phosphatase 98 U/L (38-126); Anion Gap 8 mmol/L (8-16); Aspartate Amino Transferase 26 U/L (14-36); Bilirubin,Total 0.8 mg/dL (0.2-1.3); Blood Urea Nitrogen 15 mg/dL (7-17); Calcium 9.1 mg/dL (8.4-10.2); Carbon Dioxide 26 mmol/L (22-30); Chloride 106 mmol/L (98-107); Estimated Glomerular Filt Rate 39; Glucose 145 mg/dL (65-110); Lipase 109 U/L (23-300); Potassium 3.7 mmol/L (3.4-5.0); Sodium 140 mmol/L (137-145)
[2023-06-09 19:40] LABS: Troponin I < 0.012 ng/mL (0.000-0.034)
--- NOTE | 2023-06-09 20:10 | ECG_ITS ---
Measurements Intervals [place] Rate: 108 P: ID: 0 QRS: -22 QRSD: 85 T: 70 QT: 348 QTc: 467 Interpretive Statements ATRIAL FIBRILLATION WITH RAPID VENTRICULAR RESPONSE VOLTAGE CRITERIA FOR LVH NONSPECIFIC ST & T-WAVE ABNORMALITY Electronically Signed On 06-11-2023 12:46:41 CDT by Tip Hartman M.D.
--- NOTE | 2023-06-09 20:12 | PC.NURSE ---
Patient ambulates to desk with steady unassisted gait to state she feels palpitations again. Another EKG ordered.
[2023-06-09 20:19] VITALS: BP 152/76; PULSE 112; RESP 20; TEMP 36.7; O2SAT 98
[2023-06-10 00:12] VITALS: BP 142/76; PULSE 84; RESP 17; O2SAT 99
[2023-06-10] MEDS: ALPRAZolam (*CRX) 0.5 MG TABLET PO (01:51)
[2023-06-10 01:52] VITALS: BP 158/80; PULSE 82; RESP 17; TEMP 36.5; O2SAT 98; O2SAT 99
[2023-06-10 02:22] LABS: Troponin I < 0.012 ng/mL (0.000-0.034)
--- NOTE | 2023-06-10 03:32 | ED.GENADULT ---
HPI - General Adult General Chief complaint: Shortness of Breath/Dyspnea Stated complaint: dyspnea Time Seen by Provider: 06/10/23 01:07 History of Present Illness HPI narrative: Patient 83-year-old female who presents emergency department with chief complaint of recommendations and anxiety. Patient reports that she has history of atrial fibrillation reports that her heart rate is faster than normal the patient reports no missing of her medications denies chest pain reports that she does have some shortness of breath with exertion. Related Data Home Medications Medication Instructions Recorded Confirmed melatonin 3 mg tablet 3 mg PO HS 10/31/21 03/01/23 sotalol 80 mg tablet 80 mg PO BID 04/18/22 03/01/23 Allergies Allergy/AdvReac Type Severity Reaction Status Date / Time Penicillins Allergy Severe Hives Verified 06/10/23 01:53 nitrofurantoin Allergy Intermediate Hives Verified 06/10/23 01:53 [From Macrobid] Quinolones Allergy Mild Unknown Verified 06/10/23 01:53 cefprozil Allergy Unknown Unknown Verified 06/10/23 01:53 cefuroxime Allergy Unknown Unknown Verified 06/10/23 01:53 Cephalosporins Allergy Unknown Unknown Verified 06/10/23 01:53 gatifloxacin Allergy Unknown Unknown Verified 06/10/23 01:53 metronidazole Allergy Unknown Unknown Verified 06/10/23 01:53 erythromycin base AdvReac Unknown Stomach Verified 06/10/23 01:53 cramps loratadine [From Claritin] AdvReac Unknown Jittery Verified 06/10/23 01:53 gabapentin AdvReac Severe chest Uncoded 03/01/23 11:32 tightness Review of Systems Review of Systems: A 10 system review of systems was completed on the patient and is negative except for what is stated in the HPI. Nursing and ancillary documentation was reviewed. [facility] Past Medical History Medical History Anxiety Aortic valve regurgitation Moderate by echocardiogram in October 2018. Followed by Dr. Velasco. Arthritis Benzodiazepine dependence BMI 23.0-23.9, adult BMI 28.0-28.9,adult BMI 29.0-29.9,adult BMI 30.0-30.9,adult Bronchiectasis Prior imaging demonstrated bronchiectasis in bilateral lower lobes with chronic scarring. Chronic kidney disease, stage 3 Baseline creatinine between 1.20 and 1.40. Chronic midline low back pain with sciatica Dementia Reported by daughter, however the patient disputes this. Depression Diverticulitis Gastroesophageal reflux disease Hyperlipidemia Hypertension Nausea Obstructive sleep apnea Paroxysmal atrial fibrillation She has declined anticoagulation and antiarrhythmics previously but is now on metoprolol daily. She is followed by Dr. Velasco. Surgical History Surgical History History of appendectomy History of cardiac catheterization No known intervention. History of cataract surgery History of cholecystectomy History of tooth extraction Status post appendectomy Status post cataract extraction Status post hysterectomy Status post tubal ligation Family History Family History Father Acute myocardial infarction Family history of alcoholism Gout Tobacco abuse Mother Family history of alcoholism Sibling Acute myocardial infarction Heart disease Sibling Brain aneurysm Daughter Bowel perforation July 2020 sounds like it may have been a bowel perforation related to hernia and possibly some diabetic problems.. Daughter Heart disease age 35 of heart attack Acute myocardial infarction Daughter COVID-19 Cyst of breast Social History Social History Social History: The patient has been since 2017. She lives in [place] with her daughter and son-in-law. Grandson and great grandson live next
[2023-06-10 03:57] VITALS: BP 172/66; PULSE 95; RESP 20; O2SAT 97
== END 2023-06-10 03:58 | disposition home or self-care (01) ==
PROVIDERS: Emergency Medicine; Emergency Provider Emergency Medicine; PCP Family Medicine
DX: R00.2 Palpitations (principal); I48.0 Paroxysmal atrial fibrillation; I35.1 Nonrheumatic aortic (valve) insufficiency; I12.9 Hypertensive chronic kidney disease with stage 1 through stage 4 chronic kidney disease, or unspecified chronic kidney disease; N18.30 Chronic kidney disease, stage 3 unspecified; E78.5 Hyperlipidemia, unspecified; K21.9 Gastro-esophageal reflux disease without esophagitis; G47.33 Obstructive sleep apnea (adult) (pediatric); M19.90 Unspecified osteoarthritis, unspecified site; Z90.710 Acquired absence of both cervix and uterus; Z90.49 Acquired absence of other specified parts of digestive tract; Z98.49 Cataract extraction status, unspecified eye; Z79.01 Long term (current) use of anticoagulants; Z79.82 Long term (current) use of aspirin; R94.31 Abnormal electrocardiogram [ECG] [EKG]
CPT/HCPCS: 36415; 71046; 80053; 83690; 84484; 85025; 85610; 85730; 93005; 99284; A9270

== ENCOUNTER 2023-06-26 10:04 | Outpatient (CLI) | payer MEDICARE, SELFPAY ==
--- NOTE | ~2023-06-26 | CT_ITS ---
EXAMINATION:CT diagnostic chest w con DATE: 06/26/2023 11:45 INDICATION: Lung cancer. TECHNIQUE: Computed tomography (CT) of the chest was performed with 75 mL Omnipaque 350 intravenous c ontrast. Automated exposure control and iterative reconstruction technique were employed. The dose-le ngth product (DLP) was 159.17 mGy-cm. COMPARISON: Chest CT 03/06/2023 FINDINGS: There is mild atelectasis bilaterally. A calcified right lung nodule is consistent with old granulomatous disease. There are stable airspace opacities with volume loss in right lung upper lobe . No pleural effusion. Cardiomegaly is noted. There are coronary artery calcifications. No pericardia l effusion. Aortic atherosclerosis is noted. There are changes of cholecystectomy. There is cortical thinning of the kidneys. Calcifications in the spleen are consistent with old granulomatous disease. There is moderate thoracolumbar spondylosis. IMPRESSION: 1. 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 Reviewed, dictated and finalized at location E.
[2023-06-26 11:37] LABS: Estimated Glomerular Filt Rate 39
== END 2023-06-26 10:05 | disposition home or self-care (01) ==
PROVIDERS: PCP Family Medicine; Visit Provider Internal Medicine Hematology & Oncology
DX: C34.90 Malignant neoplasm of unspecified part of unspecified bronchus or lung (principal)
CPT/HCPCS: 71260; Q9967

== ENCOUNTER 2023-07-12 10:17 | Outpatient (CLI) | payer MEDICARE, SELFPAY ==
[2023-07-12 10:40] LABS: Basophils Absolute Auto 0.1 K/mm3 (0.0-0.1); Basophils Percent Auto 0.8 % (0.2-1.2); Eosinophils Absolute Auto 0.2 K/mm3 (0-0.3); Eosinophils Percent Auto 3.7 % (0-4.4); Hematocrit 39.8 % (37.0-47.0); Hemoglobin 12.8 g/dL (12.0-15.0); Immature Granulocyte Absolute 0.02 K/mm3 (0.00-0.031); Immature Granulocyte Percent A 0.3 % (0-0.5); Lymphocytes Absolute Auto 1.42 K/mm3 (0.9-3.2); Lymphocytes Percent Auto 21.9 % (18.3-44.2); Mean Corpuscular HGB Conc 32.2 g/dl (32-36); Mean Corpuscular Hemoglobin 29.4 pg (26-34); Mean Corpuscular Volume 91.3 fl (80-100); Mean Platelet Volume 10.2 fl (7.4-10.4); Monocytes Absolute Auto 0.4 K/mm3 (0.1-0.6); Neutrophils Absolute Auto 4.4 K/mm3 (1.3-6.7); Neutrophils Percent Auto 67.3 % (45.5-73.1); Platelet Count Result 222 k/mm3 (150-375); Red Blood Count 4.36 M/mm3 (4.2-5.4); Red Cell Distribution Width 13.5 % (11.5-14.5); White Blood Count 6.5 K/mm3 (4.5-10.0)
[2023-07-12 10:45] LABS: Blood Urea Nitrogen 14 mg/dL (8-26); Carbon Dioxide 25 mmol/L (22-30); Chloride 104 mmol/L (98-109); Estimated Glomerular Filt Rate 39; Glucose 159 mg/dL (70-105); Ionized Calcium (POC) 1.26 mmol/L (1.11-1.31); Potassium 3.9 mmol/L (3.5-4.9); Sodium 143 mmol/L (138-146)
[2023-07-12 11:27] LABS: Alanine Aminotransferase 16 U/L (6-35); Albumin Level 4.2 g/dL (3.5-5.1); Alkaline Phosphatase 82 U/L (38-126); Anion Gap 11 mmol/L (8-16); Aspartate Amino Transferase 25 U/L (14-36); Bilirubin,Total 0.8 mg/dL (0.2-1.3); Blood Urea Nitrogen 14 mg/dL (7-17); Calcium 9.6 mg/dL (8.4-10.2); Carbon Dioxide 26 mmol/L (22-30); Chloride 105 mmol/L (98-107); Estimated Glomerular Filt Rate 43; Glucose 160 mg/dL (65-110); Sodium 142 mmol/L (137-145)
== END 2023-07-12 10:18 | disposition home or self-care (01) ==
LOC: ANHLAB 10:19
PROVIDERS: PCP Family Medicine; Visit Provider Internal Medicine Hematology & Oncology
DX: C34.90 Malignant neoplasm of unspecified part of unspecified bronchus or lung (principal)
CPT/HCPCS: 36415; 80047; 80053; 85025

== ENCOUNTER 2023-08-13 13:10 | Emergency (ER) | payer MEDICARE, SELFPAY ==
[2023-08-13] VITALS (27 sets, daily range): BP systolic 122–168; BP diastolic 65–108; PULSE 65–129; RESP 16–30; TEMP 36.9; O2SAT 93–100
--- NOTE | ~2023-08-13 | XR_ITS ---
EXAMINATION: XR chest 1V portable Exam Date/Time: 08/13/2023 14:40 [employer] LO[employer]ING M[employer] ANALYSIS CAPTAIN HISTORY: rapid heart rate Comparison: 06/09/2023. RESULT: Lines, tubes, and devices: None. Lungs and pleura: Right upper lobe scar. Linear left basilar atelectasis/scar. Senescent change. Cardiomediastinal silhouette: Stable. Other: No acute osseous or upper abdominal finding. IMPRESSION: No acute cardiopulmonary process. Reviewed, dictated and finalized at location K. LOGGING M[employer] ANALYSIS CAPTAIN
--- NOTE | 2023-08-13 13:31 | ECG_ITS ---
Measurements Intervals [place] Rate: 99 P: [place]: 0 QRS: -18 QRSD: 86 T: 146 QT: 361 QTc: 464 Interpretive Statements ATRIAL FIBRILLATION VOLTAGE CRITERIA FOR LVH [MEETS CRITERIA IN ONE OF: R(aVL), S(V1), R(V5), R(V5/V6)+S(V1)] ST DEVIATION AND MODERATE T-WAVE ABNORMALITY, CONSIDER LATERAL ISCHEMIA [-0.1+ mV T WAVE IN I/aVL/V5/V6] ABNORMAL ECG COMPARED TO ECG 06/09/2023 20:13:10 NO SIGNIFICANT CHANGES Electronically Signed On 08-14-2023 7:17:50 SURVEYOR'S ASSISTANT by Freddie Velasco M.D.
[2023-08-13 13:43] LABS: Basophils Absolute Auto 0.1 K/mm3 (0.0-0.1); Basophils Percent Auto 0.9 % (0.2-1.2); Eosinophils Absolute Auto 0.3 K/mm3 (0-0.3); Eosinophils Percent Auto 3.6 % (0-4.4); Hematocrit 42.6 % (37.0-47.0); Hemoglobin 13.3 g/dL (12.0-15.0); Immature Granulocyte Absolute 0.03 K/mm3 (0.00-0.031); Immature Granulocyte Percent A 0.3 % (0-0.5); Lymphocytes Absolute Auto 2.43 K/mm3 (0.9-3.2); Lymphocytes Percent Auto 25.5 % (18.3-44.2); Mean Corpuscular HGB Conc 31.2 g/dl (32-36); Mean Corpuscular Hemoglobin 28.3 pg (26-34); Mean Corpuscular Volume 90.6 fl (80-100); Mean Platelet Volume 10.4 fl (7.4-10.4); Monocytes Absolute Auto 0.8 K/mm3 (0.1-0.6); Monocytes Percent Auto 8.6 % (2.6-8.5); Neutrophils Absolute Auto 5.8 K/mm3 (1.3-6.7); Neutrophils Percent Auto 61.1 % (45.5-73.1); Platelet Count Result 262 k/mm3 (150-375); Red Cell Distribution Width 13.6 % (11.5-14.5); White Blood Count 9.5 K/mm3 (4.5-10.0)
[2023-08-13 14:29] LABS: Alanine Aminotransferase 18 U/L (6-35); Albumin Level 4.3 g/dL (3.5-5.1); Alkaline Phosphatase 93 U/L (38-126); Anion Gap 9 mmol/L (8-16); Aspartate Amino Transferase 27 U/L (14-36); Bilirubin,Total 0.8 mg/dL (0.2-1.3); Blood Urea Nitrogen 15 mg/dL (7-17); Calcium 9.6 mg/dL (8.4-10.2); Carbon Dioxide 23 mmol/L (22-30); Chloride 106 mmol/L (98-107); Estimated Glomerular Filt Rate 39; Glucose 129 mg/dL (65-110); Potassium 3.9 mmol/L (3.4-5.0); Sodium 138 mmol/L (137-145)
[2023-08-13 15:05] LABS: Add Urine Microscopic? YES; Appearance Urine Clear (Clear); Bacteria Urine None Seen /hpf; Bilirubin Urine Negative (Negative); Blood Urine Negative (Negative); Color Urine Yellow (Yellow); Glucose Urine UA Negative (Negative); Ketones Urine Negative (Negative); Leukocyte Esterase Ur 1+ LEU/UL (Negative); Need Manual Microscopic Reviewed; Nitrate Urine Negative (Negative); Non Pathogenic Casts 0-2; Protein Urine Negative (Negative); RBC Urine 0-2 /hpf (0-2); Specific Grav Ur 1.005 (1.001-1.035); Squamous Epithelial Cell Urine None seen /hpf (Few); Urobilinogen Urine 0.2 mg/dL (<2.0); WBC Urine 0-5 /hpf; pH Urine 5.5 (5.0-9.0)
[2023-08-13 15:12] LABS: Influenza A QL RT-PCR Negative (Negative); Influenza B QL RT-PCR Negative (Negative); RSV RNA, RT-PCR Negative (Negative); SARS-CoV-2 RNA PCR Negative (Negative)
--- NOTE | 2023-08-13 16:23 | ED.GENADULT ---
HPI - General Adult General Chief complaint: Weakness Stated complaint: diarrhea/weakness Time Seen by Provider: 08/13/23 13:30 History of Present Illness HPI narrative: 83-year-old female presents to the emergency department for evaluation after an episode of rapid heart rate last night and some diarrhea. Patient does have a known history of atrial fibrillation upon arrival to the emergency department patient is currently in AFib but is rate controlled. Patient denies any current nausea vomiting or diarrhea. Patient is resting comfortably. Patient denies any chest pain or shortness of breath. Patient is well-appearing Related Data Home Medications Medication Instructions Recorded Confirmed melatonin 3 mg tablet 3 mg PO HS 10/31/21 07/25/23 sotalol 80 mg tablet 80 mg PO BID 04/18/22 07/25/23 Allergies Allergy/AdvReac Type Severity Reaction Status Date / Time Penicillins Allergy Severe Hives Verified 08/13/23 13:10 gabapentin Allergy Intermediate Chest Pain Verified 08/13/23 13:10 nitrofurantoin Allergy Intermediate Hives Verified 08/13/23 13:10 [From Macrobid] Quinolones Allergy Mild Unknown Verified 08/13/23 13:10 cefprozil Allergy Unknown Unknown Verified 08/13/23 13:10 cefuroxime Allergy Unknown Unknown Verified 08/13/23 13:10 Cephalosporins Allergy Unknown Unknown Verified 08/13/23 13:10 gatifloxacin Allergy Unknown Unknown Verified 08/13/23 13:10 metronidazole Allergy Unknown Unknown Verified 08/13/23 13:10 erythromycin base AdvReac Unknown Stomach Verified 08/13/23 13:10 cramps loratadine [From Claritin] AdvReac Unknown Jittery Verified 08/13/23 13:10 prozac AdvReac Intermediate anger, Uncoded 08/13/23 13:10 dizziness Review of Systems Review of Systems: All systems reviewed & are unremarkable except as noted in HPI and below PMFSH Past Medical History Medical History Anxiety Aortic valve regurgitation Moderate by echocardiogram in October 2018. Followed by Dr. Velasco. Arthritis Benzodiazepine dependence BMI 28.0-28.9,adult BMI 30.0-30.9,adult Bronchiectasis Prior imaging demonstrated bronchiectasis in bilateral lower lobes with chronic scarring. Chronic midline low back pain with sciatica Dementia Reported by daughter, however the patient disputes this. Depression Diverticulitis Gastroesophageal reflux disease Hyperlipidemia Hypertension Nausea Obstructive sleep apnea Paroxysmal atrial fibrillation She has declined anticoagulation and antiarrhythmics previously but is now on metoprolol daily. She is followed by Dr. Velasco. Surgical History Surgical History History of appendectomy History of cardiac catheterization No known intervention. History of cataract surgery History of cholecystectomy History of tooth extraction Status post appendectomy Status post cataract extraction Status post hysterectomy Status post tubal ligation Family History Family History Father Acute myocardial infarction Family history of alcoholism Gout Tobacco abuse Mother Family history of alcoholism Sibling Acute myocardial infarction Heart disease Sibling Brain aneurysm Daughter Bowel perforation July 2020 sounds like it may have been a bowel perforation related to hernia and possibly some diabetic problems.. Daughter Heart disease age 35 of heart attack Acute myocardial infarction Daughter COVID-19 Cyst of breast Social History Social History Social History: The patient has been since 2017. She lives in [place] with her daughter and son-in-law. Grandson and great grandson live next door. She has 3 daughters, 1 from an [place] at age 30, and the other 1 recently
== END 2023-08-13 17:00 | disposition home or self-care (01) ==
PROVIDERS: Emergency Provider Emergency Medicine; PCP Family Medicine
DX: R19.7 Diarrhea, unspecified (principal); Z20.822 Contact with and (suspected) exposure to COVID-19; I48.0 Paroxysmal atrial fibrillation; I35.1 Nonrheumatic aortic (valve) insufficiency; E78.5 Hyperlipidemia, unspecified; I10 Essential (primary) hypertension; G47.33 Obstructive sleep apnea (adult) (pediatric); K21.9 Gastro-esophageal reflux disease without esophagitis; M19.90 Unspecified osteoarthritis, unspecified site; F41.9 Anxiety disorder, unspecified; F32.A Depression, unspecified; Z98.49 Cataract extraction status, unspecified eye; Z90.49 Acquired absence of other specified parts of digestive tract; Z90.710 Acquired absence of both cervix and uterus; Z77.22 Contact with and (suspected) exposure to environmental tobacco smoke (acute) (chronic); Z79.01 Long term (current) use of anticoagulants
CPT/HCPCS: 36415; 71045; 80053; 81001; 85025; 87637; 93005; 99284

== ENCOUNTER 2023-08-14 10:42 | Emergency (ER) | payer MEDICARE, SELFPAY ==
[2023-08-14 10:44] VITALS: BP 146/91; PULSE 102; RESP 18; TEMP 36.6; O2SAT 98
[2023-08-14 12:56] VITALS: PULSE 88
--- NOTE | 2023-08-14 12:57 | PC.NURSE ---
Pt denies any pain, c/o generalize weakness. Denies N/V/D
[2023-08-14] MEDS: SODIUM CHLORIDE 0.9% IV 1,000 ML 999 ML IV CONT (12:59)
[2023-08-14] MEDS: ONDANSETRON INJ 4 MG/2 ML VIAL IV PUSH (13:03)
[2023-08-14 13:42] LABS: Basophils Percent Auto 0.5 % (0.2-1.2); Eosinophils Absolute Auto 0.2 K/mm3 (0-0.3); Eosinophils Percent Auto 2.2 % (0-4.4); Hematocrit 38.1 % (37.0-47.0); Hemoglobin 11.8 g/dL (12.0-15.0); Immature Granulocyte Absolute 0.02 K/mm3 (0.00-0.031); Immature Granulocyte Percent A 0.2 % (0-0.5); Lymphocytes Absolute Auto 1.65 K/mm3 (0.9-3.2); Lymphocytes Percent Auto 19.9 % (18.3-44.2); Mean Corpuscular Hemoglobin 28.2 pg (26-34); Mean Corpuscular Volume 91.1 fl (80-100); Mean Platelet Volume 10.2 fl (7.4-10.4); Monocytes Absolute Auto 0.7 K/mm3 (0.1-0.6); Neutrophils Absolute Auto 5.7 K/mm3 (1.3-6.7); Neutrophils Percent Auto 69.2 % (45.5-73.1); Platelet Count Result 212 k/mm3 (150-375); Red Blood Count 4.18 M/mm3 (4.2-5.4); Red Cell Distribution Width 13.7 % (11.5-14.5); White Blood Count 8.3 K/mm3 (4.5-10.0)
[2023-08-14 14:03] LABS: Alanine Aminotransferase 16 U/L (6-35); Albumin Level 3.6 g/dL (3.5-5.1); Alkaline Phosphatase 73 U/L (38-126); Anion Gap 6 mmol/L (8-16); Aspartate Amino Transferase 26 U/L (14-36); Bilirubin,Total 0.9 mg/dL (0.2-1.3); Blood Urea Nitrogen 14 mg/dL (7-17); Calcium 8.8 mg/dL (8.4-10.2); Carbon Dioxide 23 mmol/L (22-30); Chloride 106 mmol/L (98-107); Estimated Glomerular Filt Rate 39; Glucose 124 mg/dL (65-110); Potassium 3.5 mmol/L (3.4-5.0); Sodium 135 mmol/L (137-145)
[2023-08-14 14:04] LABS: Troponin I < 0.012 ng/mL (0.000-0.034)
--- NOTE | 2023-08-14 14:33 | ED.WEAKNESS ---
HPI - Weakness General Chief complaint: Weakness Stated complaint: weak Time Seen by Provider: 08/14/23 12:11 History of Present Illness HPI Narrative: patient presents the emergency department generalized weakness. She states she was here last night in the emergency did do not fix her . She was here for dehydration and was not given IV fluids per the patient. she went home and woke up to eat a good breakfast this morning. However at breakfast she was very weak and could not walk without assistance from her daughter. She is concerned that she is still dehydrated. She ate broccoli the night before and had vomiting. Related Data Home Medications Medication Instructions Recorded Confirmed melatonin 3 mg tablet 3 mg PO HS 10/31/21 07/25/23 sotalol 80 mg tablet 80 mg PO BID 04/18/22 07/25/23 Allergies Allergy/AdvReac Type Severity Reaction Status Date / Time Penicillins Allergy Severe Hives Verified 08/13/23 13:10 gabapentin Allergy Intermediate Chest Pain Verified 08/13/23 13:10 nitrofurantoin Allergy Intermediate Hives Verified 08/13/23 13:10 [From Macrobid] Quinolones Allergy Mild Unknown Verified 08/13/23 13:10 cefprozil Allergy Unknown Unknown Verified 08/13/23 13:10 cefuroxime Allergy Unknown Unknown Verified 08/13/23 13:10 Cephalosporins Allergy Unknown Unknown Verified 08/13/23 13:10 gatifloxacin Allergy Unknown Unknown Verified 08/13/23 13:10 metronidazole Allergy Unknown Unknown Verified 08/13/23 13:10 erythromycin base AdvReac Unknown Stomach Verified 08/13/23 13:10 cramps loratadine [From Claritin] AdvReac Unknown Jittery Verified 08/13/23 13:10 prozac AdvReac Intermediate anger, Uncoded 08/13/23 13:10 dizziness Review of Systems Review of Systems: Review of systems negative except what is documented in the HPI [facility] Past Medical History Medical History Anxiety Aortic valve regurgitation Moderate by echocardiogram in October 2018. Followed by Dr. Velasco. Arthritis Benzodiazepine dependence BMI 28.0-28.9,adult BMI 30.0-30.9,adult Bronchiectasis Prior imaging demonstrated bronchiectasis in bilateral lower lobes with chronic scarring. Chronic midline low back pain with sciatica Dementia Reported by daughter, however the patient disputes this. Depression Diverticulitis Gastroesophageal reflux disease Hyperlipidemia Hypertension Nausea Obstructive sleep apnea Paroxysmal atrial fibrillation She has declined anticoagulation and antiarrhythmics previously but is now on metoprolol daily. She is followed by Dr. Velasco. Surgical History Surgical History History of appendectomy History of cardiac catheterization No known intervention. History of cataract surgery History of cholecystectomy History of tooth extraction Status post appendectomy Status post cataract extraction Status post hysterectomy Status post tubal ligation Family History Family History Father Acute myocardial infarction Family history of alcoholism Gout Tobacco abuse Mother Family history of alcoholism Sibling Acute myocardial infarction Heart disease Sibling Brain aneurysm Daughter Bowel perforation July 2020 sounds like it may have been a bowel perforation related to hernia and possibly some diabetic problems.. Daughter Heart disease age 35 of heart attack Acute myocardial infarction Daughter COVID-19 Cyst of breast Social History Social History Social History: The patient has been since 2017. She lives in [place] with her daughter and son-in-law. Grandson and great grandson live next door. She has 3 daughters, 1 from an [place] at age 30, and the other 1 recently from c
[2023-08-14 16:30] VITALS: BP 138/84; PULSE 86; RESP 16; O2SAT 98
== END 2023-08-14 16:31 | disposition home or self-care (01) ==
PROVIDERS: Emergency Provider Emergency Medicine; PCP Family Medicine
DX: E86.0 Dehydration (principal); R53.1 Weakness; I10 Essential (primary) hypertension; E78.5 Hyperlipidemia, unspecified; K21.9 Gastro-esophageal reflux disease without esophagitis; I48.0 Paroxysmal atrial fibrillation
CPT/HCPCS: 36415; 80053; 84484; 85025; 96361; 96374; 99284; J2405; J7030

== ENCOUNTER 2023-10-09 10:51 | Emergency (ER) | payer MEDICARE, SELFPAY ==
--- NOTE | ~2023-10-09 | CT_ITS ---
CT of the Abdomen and Pelvis: Indication: Diarrhea, abdominal pain Technique: 2.5 mm axial scans were obtained through the abdomen and pelvis following intravenous adm inistration of 100 cc of Omnipaque 350. Dose reduction technique was used on this scan by utilizing a utomated exposure control and iterative reconstruction technique. The dose-length product (DLP) was 4 49.15 mGy-cm. COMPARISON: 04/29/2023 Findings: Scans through the lung bases are unremarkable. The liver, spleen, pancreas, adrenals and kidneys are within normal limits. Cholecystectomy clips are present. There are atherosclerotic calcifications of the aorta. No lymphadenopathy. No bowel obstruction or bowel wall thickening. There is no evidence to suggest acute appendicitis. Images through the pelvis were performed. Urinary bladder unremarkable. No adnexal mass seen. No asci dustin. Impression: No significant abnormalities seen. Reviewed, dictated and finalized at [facility]. 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
[2023-10-09 11:41] VITALS: BP 171/79; PULSE 90; RESP 16; TEMP 36.6; O2SAT 100
--- NOTE | 2023-10-09 12:58 | PC.NURSE ---
Patient up to intake desk asking about wait time. Patient wanting to know if there are 10 or 3 patients. Patient informed that we cannot give out exact wait times. Patient back to waiting room to wait.
[2023-10-09 13:15] VITALS: BP 167/78; PULSE 58; RESP 17; TEMP 36.3; O2SAT 97
--- NOTE | 2023-10-09 13:17 | ED.GENADULT ---
HPI - General Adult General Chief complaint: Weakness <TAJ Robledo Last Filed: 10/09/23 18:54> Stated complaint: diarrhea <TAJ Robledo Last Filed: 10/09/23 18:54> Time Seen by Provider: 10/09/23 13:15 <TAJ Robledo Last Filed: 10/09/23 18:54> Focused HPI: Patient is an 83 y/o female who presents to the ED with c/o nausea and diarrhea. Patient reports she woke up around 3am this morning with profuse diarrhea. Has since had a few more episodes of watery diarrhea. Denies rectal bleeding or melena. Patient also reports having nausea today and diffuse abd pain. Denies vomiting. Denies fevers. Was at a [employer] party last night and had chicken salad and pulled pork sandwiches. GENERAL: Well-appearing, well-nourished, and in no acute distress. HEAD: Normocephalic, atraumatic. CHEST: Clear to auscultation. ?No respiratory distress. HEART: Regular rate and rhythm.? ABD: Diffuse tenderness to palpation, worst in RLQ/suprapubic region. NEURO: ?Alert and oriented x3. Patient screened in triage and initial orders placed.? ?Additional care and disposition to be based upon?diagnostic testing and treatment. <TAJ Robledo Last Filed: 10/09/23 18:54> Source: patient <TAJ Robledo Last Filed: 10/09/23 18:54> Mode of arrival: ambulatory <TAJ Robledo Last Filed: 10/09/23 18:54> Limitations: no limitations <TAJ Robledo Last Filed: 10/09/23 18:54> Related Data Home medications: Home Medications Medication Instructions Recorded Confirmed melatonin 3 mg tablet 3 mg PO HS 10/31/21 07/25/23 sotalol 80 mg tablet 80 mg PO BID 04/18/22 07/25/23 <TAJ Robledo Last Filed: 10/09/23 18:54> Allergies/adverse reactions: Allergies Allergy/AdvReac Type Severity Reaction Status Date / Time Penicillins Allergy Severe Hives Verified 08/13/23 13:10 gabapentin Allergy Intermediate Chest Pain Verified 08/13/23 13:10 nitrofurantoin Allergy Intermediate Hives Verified 08/13/23 13:10 [From Macrobid] Quinolones Allergy Mild Unknown Verified 08/13/23 13:10 cefprozil Allergy Unknown Unknown Verified 08/13/23 13:10 cefuroxime Allergy Unknown Unknown Verified 08/13/23 13:10 Cephalosporins Allergy Unknown Unknown Verified 08/13/23 13:10 gatifloxacin Allergy Unknown Unknown Verified 08/13/23 13:10 metronidazole Allergy Unknown Unknown Verified 08/13/23 13:10 erythromycin base AdvReac Unknown Stomach Verified 08/13/23 13:10 cramps loratadine [From Claritin] AdvReac Unknown Jittery Verified 08/13/23 13:10 prozac AdvReac Intermediate anger, Uncoded 08/13/23 13:10 dizziness <Judit Crane PA-C - Last Filed: 10/09/23 18:54> Review of Systems Review of Systems: All systems reviewed & are unremarkable except as noted in HPI and below <Wero Green MD - Last Filed: 10/09/23 15:14> Constitutional: Constitutional: Reports no additional constitutional complaints <Wero Green MD - Last Filed: 10/09/23 15:14> ENT: Reports system reviewed and no additional complaints, except as documented <Wero Green MD - Last Filed: 10/09/23 15:14> Cardiovascular: Cardiovascular: Reports no additional cardiovascular complaints <Wero Green MD - Last Filed: 10/09/23 15:14> Respiratory: Respiratory: Reports no additional respiratory complaints <Wero Green MD - Last Filed: 10/09/23 15:14> Gastrointestinal: Gastrointestinal: Denies abdominal pain, Reports diarrhea, Reports nausea and Denies vomiting <Wero Green MD - Last Filed: 10/09/23 15:14> Genitourinary: Genitourinary: Reports no additional female genitourinary complaints <Wero Green MD - Last Filed: 10/09/23 15:14> [facility] Past Medical History Medical History: Medical History Anxiety Aortic valve regurgitation Modera
[2023-10-09] MEDS: ONDANSETRON INJ 4 MG/2 ML VIAL IV PUSH (13:32)
[2023-10-09 13:42] LABS: Basophils Percent Auto 0.6 % (0.2-1.2); Eosinophils Absolute Auto 0.2 K/mm3 (0-0.3); Eosinophils Percent Auto 2.9 % (0-4.4); Hematocrit 37.3 % (37.0-47.0); Hemoglobin 11.6 g/dL (12.0-15.0); Immature Granulocyte Absolute 0.03 K/mm3 (0.00-0.031); Immature Granulocyte Percent A 0.4 % (0-0.5); Lymphocytes Absolute Auto 1.95 K/mm3 (0.9-3.2); Lymphocytes Percent Auto 26.9 % (18.3-44.2); Mean Corpuscular HGB Conc 31.1 g/dl (32-36); Mean Corpuscular Hemoglobin 28.3 pg (26-34); Mean Platelet Volume 10.5 fl (7.4-10.4); Monocytes Absolute Auto 0.6 K/mm3 (0.1-0.6); Monocytes Percent Auto 8.5 % (2.6-8.5); Neutrophils Absolute Auto 4.4 K/mm3 (1.3-6.7); Neutrophils Percent Auto 60.7 % (45.5-73.1); Platelet Count Result 205 k/mm3 (150-375); Red Cell Distribution Width 14.9 % (11.5-14.5); White Blood Count 7.3 K/mm3 (4.5-10.0)
[2023-10-09 13:53] LABS: Alanine Aminotransferase 14 U/L (6-35); Alkaline Phosphatase 94 U/L (38-126); Anion Gap 7 mmol/L (8-16); Aspartate Amino Transferase 25 U/L (14-36); Bilirubin,Total 0.6 mg/dL (0.2-1.3); Blood Urea Nitrogen 15 mg/dL (7-17); Calcium 10.1 mg/dL (8.4-10.2); Carbon Dioxide 27 mmol/L (22-30); Chloride 107 mmol/L (98-107); Estimated Glomerular Filt Rate 43; Glucose 131 mg/dL (65-110); Sodium 141 mmol/L (137-145)
[2023-10-09 14:25] LABS: Influenza A QL RT-PCR Negative (Negative); Influenza B QL RT-PCR Negative (Negative); RSV RNA, RT-PCR Negative (Negative); SARS-CoV-2 RNA PCR Negative (Negative)
[2023-10-09 14:45] VITALS: BP 182/77; PULSE 60; RESP 20; TEMP 36.6; O2SAT 97
[2023-10-09 14:50] LABS: Appearance Urine Clear (Clear); Bacteria Urine None Seen /hpf; Bilirubin Urine Negative (Negative); Blood Urine Negative (Negative); Color Urine Yellow (Yellow); Glucose Urine UA Negative (Negative); Ketones Urine Negative (Negative); Leukocyte Esterase Ur Trace LEU/UL (Negative); Nitrate Urine Negative (Negative); Non Pathogenic Casts 0-2; Protein Urine Negative (Negative); RBC Urine 0-2 /hpf (0-2); Specific Grav Ur 1.013 (1.001-1.035); Squamous Epithelial Cell Urine None seen /hpf (Few); Urobilinogen Urine 0.2 mg/dL (<2.0); WBC Urine 0-5 /hpf; pH Urine 5.5 (5.0-9.0)
[2023-10-09 14:56] LABS: Add Urine Microscopic? YES
[2023-10-09 15:32] VITALS: BP 118/58; PULSE 56; RESP 20; TEMP 36.5; O2SAT 96
== END 2023-10-09 15:33 | disposition home or self-care (01) ==
PROVIDERS: Physician Assistant; Emergency Provider Emergency Medicine; PCP Family Medicine
DX: K52.9 Noninfective gastroenteritis and colitis, unspecified (principal); Z20.822 Contact with and (suspected) exposure to COVID-19; I48.0 Paroxysmal atrial fibrillation; I35.1 Nonrheumatic aortic (valve) insufficiency; I10 Essential (primary) hypertension; E78.5 Hyperlipidemia, unspecified; G47.33 Obstructive sleep apnea (adult) (pediatric); K21.9 Gastro-esophageal reflux disease without esophagitis; M19.90 Unspecified osteoarthritis, unspecified site; Z98.49 Cataract extraction status, unspecified eye; Z90.710 Acquired absence of both cervix and uterus; Z79.82 Long term (current) use of aspirin; Z79.01 Long term (current) use of anticoagulants
CPT/HCPCS: 36415; 74177; 80053; 81001; 85025; 87637; 96374; 99284; J2405; Q9967

== ENCOUNTER 2023-10-30 10:31 | Outpatient (CLI) | payer MEDICARE, SELFPAY ==
--- NOTE | ~2023-10-30 | CT_ITS ---
EXAMINATION: CT diagnostic chest w con DATE: 10/30/2023 11:24 INDICATION: Non-small cell lung cancer TECHNIQUE: Transaxial computed tomographic images of the chest were obtained after the administration of 75 cc of Omnipaque 350 intravenous contrast. The dose-length product (DLP) was 178.64 mGy-cm. Ite rative reconstruction was used. COMPARISON: 06/26/2023 FINDINGS: Again noted are stable airspace opacities with associated volume loss in the right upper lo be. There is a stable 3 mm nodule in the right lower lobe on image 60. The lungs are free of focal ai rspace opacities. There is mild dependent atelectasis of the lungs. No pathologically enlarged thorac ic lymph nodes are identified. Cardiomegaly is noted. There is calcified coronary artery atherosclero sis. There is moderate thoracic spondylosis. There is a healing anterolateral fracture of the right t hird rib. IMPRESSION: 1. Stable changes in the right upper lobe, consistent with treated malignancy and radiation fibrosis. Reviewed, dictated and finalized at location B. D NURSE IMPRESSION: 1. Stable changes in the right upper lobe, consistent with treated malignancy a nd radiation fibrosis.
== END 2023-10-30 10:32 | disposition home or self-care (01) ==
PROVIDERS: PCP Family Medicine; Visit Provider Internal Medicine Hematology & Oncology
DX: C34.90 Malignant neoplasm of unspecified part of unspecified bronchus or lung (principal)
CPT/HCPCS: 71260; Q9967

== ENCOUNTER 2023-11-06 10:23 | Outpatient (CLI) | payer MEDICARE, SELFPAY ==
[2023-11-06 10:42] LABS: Basophils Absolute Auto 0.1 K/mm3 (0.0-0.1); Basophils Percent Auto 0.7 % (0.2-1.2); Eosinophils Absolute Auto 0.2 K/mm3 (0-0.3); Eosinophils Percent Auto 3.2 % (0-4.4); Hematocrit 37.6 % (37.0-47.0); Hemoglobin 11.9 g/dL (12.0-15.0); Immature Granulocyte Absolute 0.04 K/mm3 (0.00-0.031); Immature Granulocyte Percent A 0.6 % (0-0.5); Lymphocytes Absolute Auto 1.72 K/mm3 (0.9-3.2); Lymphocytes Percent Auto 23.7 % (18.3-44.2); Mean Corpuscular HGB Conc 31.6 g/dl (32-36); Mean Corpuscular Hemoglobin 28.7 pg (26-34); Mean Corpuscular Volume 90.8 fl (80-100); Mean Platelet Volume 10.4 fl (7.4-10.4); Monocytes Absolute Auto 0.4 K/mm3 (0.1-0.6); Monocytes Percent Auto 5.9 % (2.6-8.5); Neutrophils Absolute Auto 4.8 K/mm3 (1.3-6.7); Neutrophils Percent Auto 65.9 % (45.5-73.1); Platelet Count Result 194 k/mm3 (150-375); Red Blood Count 4.14 M/mm3 (4.2-5.4); Red Cell Distribution Width 14.8 % (11.5-14.5); White Blood Count 7.3 K/mm3 (4.5-10.0)
[2023-11-06 11:19] LABS: Blood Urea Nitrogen 13 mg/dL (8-26); Carbon Dioxide 27 mmol/L (22-30); Chloride 103 mmol/L (98-109); Estimated Glomerular Filt Rate 43; Glucose 165 mg/dL (70-105); Ionized Calcium (POC) 1.28 mmol/L (1.11-1.31); Potassium 3.8 mmol/L (3.5-4.9); Sodium 142 mmol/L (138-146)
[2023-11-06 12:53] LABS: Alanine Aminotransferase 14 U/L (6-35); Alkaline Phosphatase 101 U/L (38-126); Anion Gap 5 mmol/L (8-16); Aspartate Amino Transferase 23 U/L (14-36); Bilirubin,Total 0.6 mg/dL (0.2-1.3); Blood Urea Nitrogen 13 mg/dL (7-17); Calcium 9.5 mg/dL (8.4-10.2); Carbon Dioxide 27 mmol/L (22-30); Chloride 106 mmol/L (98-107); Estimated Glomerular Filt Rate 43; Glucose 162 mg/dL (65-110); Potassium 3.8 mmol/L (3.4-5.0); Sodium 138 mmol/L (137-145)
== END 2023-11-06 10:24 | disposition home or self-care (01) ==
LOC: ANHLAB 10:24
PROVIDERS: PCP Family Medicine; Visit Provider Internal Medicine Hematology & Oncology
DX: C34.90 Malignant neoplasm of unspecified part of unspecified bronchus or lung (principal)
CPT/HCPCS: 36415; 80047; 80053; 85025

== ENCOUNTER 2023-12-04 22:13 | Emergency (ER) | payer MEDICARE, SELFPAY ==
--- NOTE | ~2023-12-04 | XR_ITS ---
EXAMINATION: XR chest 1V portable Exam Date/Time: 12/04/2023 22:48 CDT HISTORY: CP; HIGH HEART RATE Comparison: 08/13/2023; CT chest 10/30/2023. RESULT: Lines, tubes, and devices: Cholecystectomy clips. Lungs and pleura: Low volumes with crowding. Stable triangular opacity in the right upper lung, prev iously reported as treated malignancy and radiation fibrosis. Cardiomediastinal silhouette: Stable. Other: No acute osseous or upper abdominal finding. IMPRESSION: No acute cardiopulmonary process. Reviewed, dictated and finalized at location K.
--- NOTE | 2023-12-04 22:22 | ECG_ITS ---
Measurements Intervals [place] Rate: 123 P: * [place]: * QRS: -12 QRSD: 84 T: 106 QT: 335 QTc: 408 Interpretive Statements ATRIAL FIBRILLATION VOLTAGE CRITERIA FOR LVH [MEETS CRITERIA IN ONE OF: R(aVL), S(V1), R(V5), R(V5/V6)+S(V1) ST DEVIATION AND MODERATE T-WAVE ABNORMALITY, CONSIDER LATERAL ISCHEMIA [-0.1+ mV T-WAVE IN I/aVL/V5/V6] ABNORMAL ECG SEE SCANNED COPY FOR SIGNATURE MTDD
[2023-12-04 22:23] VITALS: BP 152/80; PULSE 123; RESP 15; TEMP 36.5; O2SAT 100
[2023-12-04 22:38] VITALS: PULSE 114
[2023-12-04] MEDS: ASPIRIN 81 MG CHEWABLE TABLET 324 MG PO (22:41)
[2023-12-04 22:55] LABS: Basophils Absolute Auto 0.1 K/mm3 (0.0-0.1); Basophils Percent Auto 0.6 % (0.2-1.2); Eosinophils Absolute Auto 0.3 K/mm3 (0-0.3); Hematocrit 40.2 % (37.0-47.0); Hemoglobin 12.9 g/dL (12.0-15.0); Immature Granulocyte Absolute 0.04 K/mm3 (0.00-0.031); Immature Granulocyte Percent A 0.4 % (0-0.5); Lymphocytes Absolute Auto 2.76 K/mm3 (0.9-3.2); Lymphocytes Percent Auto 29.6 % (18.3-44.2); Mean Corpuscular HGB Conc 32.1 g/dl (32-36); Mean Corpuscular Hemoglobin 28.6 pg (26-34); Mean Corpuscular Volume 89.1 fl (80-100); Mean Platelet Volume 10.2 fl (7.4-10.4); Monocytes Absolute Auto 0.7 K/mm3 (0.1-0.6); Monocytes Percent Auto 7.5 % (2.6-8.5); Neutrophils Absolute Auto 5.5 K/mm3 (1.3-6.7); Neutrophils Percent Auto 58.9 % (45.5-73.1); Platelet Count Result 200 k/mm3 (150-375); Red Blood Count 4.51 M/mm3 (4.2-5.4); Red Cell Distribution Width 14.8 % (11.5-14.5); White Blood Count 9.3 K/mm3 (4.5-10.0)
[2023-12-04 23:05] LABS: Alanine Aminotransferase 14 U/L (6-35); Albumin Level 4.4 g/dL (3.5-5.1); Alkaline Phosphatase 102 U/L (38-126); Anion Gap 8 mmol/L (4-12); Aspartate Amino Transferase 22 U/L (14-36); Bilirubin,Total 0.7 mg/dL (0.2-1.3); Blood Urea Nitrogen 14 mg/dL (7-17); Calcium 10.1 mg/dL (8.4-10.2); Carbon Dioxide 25 mmol/L (22-30); Chloride 102 mmol/L (98-107); Estimated Glomerular Filt Rate 43; Glucose 158 mg/dL (65-110); Lipase 126 U/L (23-300); Potassium 3.8 mmol/L (3.4-5.0); Sodium 135 mmol/L (137-145)
[2023-12-04 23:06] LABS: INR 1.3; Prothrombin Time 16.4 Seconds (11.1-14.7)
[2023-12-04 23:07] LABS: Partial Thromboplastin Time 31.7 Seconds (22.3-36.8)
[2023-12-04 23:17] LABS: Troponin I < 0.012 ng/mL (0.000-0.034)
[2023-12-04 23:35] VITALS: PULSE 130
[2023-12-04] MEDS: METOPROLOL TARTRATE INJ 5 MG/5 ML VIAL IV PUSH (23:35)
[2023-12-04 23:47] VITALS: BP 149/37; PULSE 123; RESP 28; O2SAT 99
[2023-12-05] MEDS: dilTIAZem HCl INJ 25 MG/5 ML VIAL 10 MG IV PUSH (00:01)
--- NOTE | 2023-12-05 00:02 | ED.ARRPALP ---
HPI - Arrhythmia/Palpitations General Chief Complaint: Arrhythmia/Palpitations Stated Complaint: heart beating out of chest Time Seen by Provider: 12/04/23 22:35 Source: patient Mode of arrival: ambulatory Limitations: no limitations History of Present Illness HPI narrative: Patient is an 83-year-old female, with PMH of chronic afib on Eliquis and Sotalol, who presents the ED with report of heart palpitations. Patient reports she felt fine today, however around 8 p.m. began to develop racing heart palpitations. [place] as though her heart was beating out of her chest. She then prompted her for further evaluation. Complains of a fullness in her chest. Denies CP. Denies difficulty breathing or dyspnea on exertion. Denies lower extremity pain or swelling. Denies cough or cold symptoms. Denies dizziness, lightheadedness, syncope. Patient has been compliant with her home medications. Surgical Services Manager = Dr. Velasco. Related Data Home Medications Medication Instructions Recorded Confirmed melatonin 3 mg tablet 3 mg PO HS 10/31/21 11/01/23 sotalol 80 mg tablet 80 mg PO BID 04/18/22 11/01/23 Allergies Allergy/AdvReac Type Severity Reaction Status Date / Time Penicillins Allergy Severe Hives Verified 12/04/23 22:20 gabapentin Allergy Intermediate Chest Pain Verified 12/04/23 22:20 nitrofurantoin Allergy Intermediate Hives Verified 12/04/23 22:20 [From Macrobid] Quinolones Allergy Mild Unknown Verified 12/04/23 22:20 cefprozil Allergy Unknown Unknown Verified 12/04/23 22:20 cefuroxime Allergy Unknown Unknown Verified 12/04/23 22:20 Cephalosporins Allergy Unknown Unknown Verified 12/04/23 22:20 gatifloxacin Allergy Unknown Unknown Verified 12/04/23 22:20 metronidazole Allergy Unknown Unknown Verified 12/04/23 22:20 fluoxetine [From Prozac] AdvReac Mild Dizziness Verified 12/04/23 22:20 erythromycin base AdvReac Unknown Stomach Verified 12/04/23 22:20 cramps loratadine [From Claritin] AdvReac Unknown Jittery Verified 12/04/23 22:20 Review of Systems Review of Systems: CONSTITUTIONAL: Denies fever, chills, or sweats. ENT: Denies rhinorrhea, congestion, sore throat. CARDIOVASCULAR: See HPI. RESPIRATORY: Denies cough or dyspnea. GASTROINTESTINAL: Denies abdominal pain, nausea, vomiting. NEUROLOGIC: Denies headache, dizziness, numbness, or weakness. All systems reviewed & are unremarkable except as noted in HPI and below [facility] Past Medical History Medical History Anxiety Aortic valve regurgitation Moderate by echocardiogram in October 2018. Followed by Dr. Velasco. Arthritis Benzodiazepine dependence BMI 28.0-28.9,adult BMI 30.0-30.9,adult Bronchiectasis Prior imaging demonstrated bronchiectasis in bilateral lower lobes with chronic scarring. Chronic midline low back pain with sciatica Dementia Reported by daughter, however the patient disputes this. Depression Diverticulitis Gastroesophageal reflux disease Hyperlipidemia Hypertension Nausea Obstructive sleep apnea Paroxysmal atrial fibrillation She has declined anticoagulation and antiarrhythmics previously but is now on metoprolol daily. She is followed by Dr. Velasco. Surgical History Surgical History History of appendectomy History of cardiac catheterization No known intervention. History of cataract surgery History of cholecystectomy History of tooth extraction Status post appendectomy Status post cataract extraction Status post hysterectomy Status post tubal ligation Family History Family History Father Acute myocardial infarction Family history of alcoholism Gout Tobacco abuse Mother Family history of alcoholism Sibling Acute myocardial infarction Heart disease Sibling Brain aneurysm Daughter Bowel perforation
--- NOTE | 2023-12-05 00:08 | ECG_ITS ---
Measurements Intervals [place] Rate: 78 P: * [place]: * QRS: -17 QRSD: 85 T: 42 QT: 385 AVG RR 764 QTc: 418 QTcB 440 QTcF 421 Interpretive Statements ATRIAL FIBRILLATION VOLTAGE CRITERIA FOR LVH [MEETS CRITERIA IN ONE OF: R (aVL), S (V1), R (V5), R (V5/V6) + S (V1)] MODERATE ST DEPRESSION [0.05+ mV ST DEPRESSION] ABNORMAL ECG SEE SCANNED COPY FOR SIGNATURE MTDD
[2023-12-05 00:09] LABS: Magnesium 2.2 mg/dL (1.6-2.3)
[2023-12-05 01:04] VITALS: BP 158/113; PULSE 77; RESP 19; O2SAT 99
[2023-12-05] MEDS: MECLIZINE HCL 25 MG TABLET PO (01:28)
[2023-12-05] MEDS: SCOPOLAMINE 1 MG PATCH 1 PATCH TRANSDERM (01:28)
[2023-12-05] MEDS: SODIUM CHLORIDE 0.9% IV 500 ML 999 ML IV CONT (01:29)
[2023-12-05 01:51] LABS: Troponin I < 0.012 ng/mL (0.000-0.034)
[2023-12-05 02:40] VITALS: BP 142/85; PULSE 92; RESP 23; O2SAT 98
== END 2023-12-05 02:46 | disposition home or self-care (01) ==
PROVIDERS: Emergency Medicine; Emergency Provider Physician Assistant; PCP Family Medicine
DX: I48.20 Chronic atrial fibrillation, unspecified (principal); F41.9 Anxiety disorder, unspecified; M19.90 Unspecified osteoarthritis, unspecified site; F32.A Depression, unspecified; K21.9 Gastro-esophageal reflux disease without esophagitis; E78.5 Hyperlipidemia, unspecified; I10 Essential (primary) hypertension; G47.30 Sleep apnea, unspecified; M54.50 Low back pain, unspecified; G89.29 Other chronic pain; I35.1 Nonrheumatic aortic (valve) insufficiency
CPT/HCPCS: 36415; 71045; 80053; 83690; 83735; 84484; 85025; 85610; 85730; 93005; 96361; 96374; 96375; 99284; A9270; J7040

== ENCOUNTER 2023-12-06 12:40 | Observation (INO) | payer MEDICARE, SELFPAY ==
[2023-12-06] VITALS (45 sets, daily range): BP systolic 122–190; BP diastolic 52–100; PULSE 80–124; RESP 16–32; TEMP 36.3–36.9; O2SAT 95–98; BMI 31.2
--- NOTE | ~2023-12-06 | XR_ITS ---
EXAMINATION: XR hand LT min 3V DATE: 12/06/2023 14:19 INDICATION: Left hand injury. Hematoma. TECHNIQUE: 3 views of left hand were obtained. COMPARISON: None. FINDINGS: Bone alignment is normal. No fracture. There is mild osteoarthritis of triscaphe joint, sev ere osteoarthritis of first carpometacarpal joint, and mild to moderate osteoarthritis of many of the metacarpophalangeal joints and interphalangeal joints. There is severe osteoarthritis of first inter phalangeal joint and third distal interphalangeal joint. IMPRESSION: 1. Polyarticular osteoarthritis. Reviewed, dictated and finalized at location A.
--- NOTE | ~2023-12-06 | XR_ITS ---
EXAMINATION: XR hip LT 2V w AP pelvis DATE: 12/07/2023 15:10 INDICATION: Left hip pain. TECHNIQUE: An anteroposterior view of the pelvis and 2 views of left hip were obtained. COMPARISON: CT abdomen and pelvis 10/09/2023 FINDINGS: There is lumbar levocurvature and severe spondylosis. No fracture. There is moderate osteoa rthritis of the hips. Osteitis pubis is noted. Surgical clips in the right upper quadrant are likely from cholecystectomy. IMPRESSION: 1. Moderate osteoarthritis of the hips. Reviewed, dictated and finalized at location A.
--- NOTE | ~2023-12-06 | XR_ITS ---
EXAMINATION: XR chest 1V DATE: 12/06/2023 14:20 INDICATION: Dizziness. TECHNIQUE: A single frontal view of the chest was obtained. COMPARISON: Chest single view 12/04/2023 FINDINGS: Again seen are airspace opacities with volume loss in right lung upper lobe. No pleural eff usion or pneumothorax. Cardiomegaly is noted. Surgical clips in the right upper quadrant are likely f rom cholecystectomy. IMPRESSION: 1. 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 2. Cardiomegaly. Reviewed, dictated and finalized at location A.
--- NOTE | ~2023-12-06 | CT_ITS ---
Non-contrast Head CT History: Status post fall Technique: Axial non-contrast imaging of the brain was performed. Dose reduction technique was used on this scan by utilizing automated exposure control and iterative reconstruction technique. The dose -length product (DLP) was 605.33 mGy-cm. Findings: There is no evidence of intracranial hemorrhage, mass lesion, or acute infarct. Brain par enchyma appears normal. The ventricles and subarachnoid spaces are normal in size. The calvarium ap pears normal. The visualized paranasal sinuses and mastoid air cells are clear. Impression: No significant abnormality seen. Reviewed, dictated and finalized at location . Impression: No significant abnormality seen.
--- NOTE | 2023-12-06 12:46 | ECG_ITS ---
Measurements Intervals [place] Rate: 129 P: * [place]: * QRS: -21 QRSD: 83 T: 125 QT: 332 QTc: 408 Interpretive Statements ATRIAL FIBRILLATION WITH RAPID VENTRICULAR RESPONSE BORDERLINE LEFT AXIS DEVIATION [QRS AXIS < -20] VOLTAGE CRITERIA FOR LVH [MEETS CRITERIA IN ONE OF: R(aVL). S(V1), R(V5) R(V5/V6)+S(V1) ST DEVIATION AND MODERATE T-WAVE ABNORMALITY, CONSIDER LATERAL ISCHEMIA [-0.1+ mV T-WAVE IN I/aVL/V5/V6] ABNORMAL ECG SEE SCANNED COPY FOR SIGNATURE MTDD
--- NOTE | 2023-12-06 13:33 | ED.DIZZY ---
HPI - Dizziness General Chief Complaint: Dizziness Stated Complaint: afib acting up Time Seen by Provider: 12/06/23 13:32 Source: patient Mode of arrival: ambulatory Limitations: no limitations History of Present Illness HPI Narrative: 83 years old white female came from home by private car complaining of dizziness, with some shortness of breath, her head keep going around and around for a while, got worse over the last 24 hours because for AFib. Patient had a fall while getting out of her bed landed on a carpeted floor struck her head yesterday morning, came to the emergency room and was discharged home. Patient denies any fever chills, nausea vomiting, chest pain History of AFib on Xarelto Related Data Home Medications Medication Instructions Recorded Confirmed melatonin 3 mg tablet 3 mg PO HS 10/31/21 11/01/23 sotalol 80 mg tablet 80 mg PO BID 04/18/22 11/01/23 Allergies Allergy/AdvReac Type Severity Reaction Status Date / Time Penicillins Allergy Severe Hives Verified 12/04/23 22:20 gabapentin Allergy Intermediate Chest Pain Verified 12/04/23 22:20 nitrofurantoin Allergy Intermediate Hives Verified 12/04/23 22:20 [From Macrobid] Quinolones Allergy Mild Unknown Verified 12/04/23 22:20 cefprozil Allergy Unknown Unknown Verified 12/04/23 22:20 cefuroxime Allergy Unknown Unknown Verified 12/04/23 22:20 Cephalosporins Allergy Unknown Unknown Verified 12/04/23 22:20 gatifloxacin Allergy Unknown Unknown Verified 12/04/23 22:20 metronidazole Allergy Unknown Unknown Verified 12/04/23 22:20 fluoxetine [From Prozac] AdvReac Mild Dizziness Verified 12/04/23 22:20 erythromycin base AdvReac Unknown Stomach Verified 12/04/23 22:20 cramps loratadine [From Claritin] AdvReac Unknown Jittery Verified 12/04/23 22:20 Review of Systems Review of Systems: All systems reviewed & are unremarkable except as noted in HPI and below PMFSH Past Medical History Medical History Anxiety Aortic valve regurgitation Moderate by echocardiogram in October 2018. Followed by Dr. Velasco. Arthritis Benzodiazepine dependence BMI 28.0-28.9,adult BMI 30.0-30.9,adult Bronchiectasis Prior imaging demonstrated bronchiectasis in bilateral lower lobes with chronic scarring. Chronic midline low back pain with sciatica Dementia Reported by daughter, however the patient disputes this. Depression Diverticulitis Gastroesophageal reflux disease Hyperlipidemia Hypertension Nausea Obstructive sleep apnea Paroxysmal atrial fibrillation She has declined anticoagulation and antiarrhythmics previously but is now on metoprolol daily. She is followed by Dr. Velasco. Surgical History Surgical History History of appendectomy History of cardiac catheterization No known intervention. History of cataract surgery History of cholecystectomy History of tooth extraction Status post appendectomy Status post cataract extraction Status post hysterectomy Status post tubal ligation Family History Family History Father Acute myocardial infarction Family history of alcoholism Gout Tobacco abuse Mother Family history of alcoholism Sibling Acute myocardial infarction Heart disease Sibling Brain aneurysm Daughter Bowel perforation July 2020 sounds like it may have been a bowel perforation related to hernia and possibly some diabetic problems.. Daughter Heart disease age 35 of heart attack Acute myocardial infarction Daughter COVID-19 Cyst of breast Social History Social History Social History: The patient has been since 2017. She lives in [place] with her daughter and son-in-law. Grandson and great grandson live next door. She has 3 daughters, 1
[2023-12-06 13:55] LABS: Basophils Absolute Auto 0.1 K/mm3 (0.0-0.1); Basophils Percent Auto 0.7 % (0.2-1.2); Eosinophils Absolute Auto 0.3 K/mm3 (0-0.3); Eosinophils Percent Auto 2.5 % (0-4.4); Hematocrit 38.4 % (37.0-47.0); Hemoglobin 12.6 g/dL (12.0-15.0); Immature Granulocyte Absolute 0.05 K/mm3 (0.00-0.031); Immature Granulocyte Percent A 0.4 % (0-0.5); Lymphocytes Absolute Auto 1.61 K/mm3 (0.9-3.2); Lymphocytes Percent Auto 14.1 % (18.3-44.2); Mean Corpuscular HGB Conc 32.8 g/dl (32-36); Mean Corpuscular Hemoglobin 29.2 pg (26-34); Mean Corpuscular Volume 88.9 fl (80-100); Mean Platelet Volume 10.6 fl (7.4-10.4); Monocytes Absolute Auto 0.8 K/mm3 (0.1-0.6); Monocytes Percent Auto 7.2 % (2.6-8.5); Neutrophils Absolute Auto 8.6 K/mm3 (1.3-6.7); Neutrophils Percent Auto 75.1 % (45.5-73.1); Platelet Count Result 242 k/mm3 (150-375); Red Blood Count 4.32 M/mm3 (4.2-5.4); White Blood Count 11.5 K/mm3 (4.5-10.0)
[2023-12-06] MEDS: dilTIAZem HCl INJ 25 MG/5 ML VIAL 10 MG IV PUSH (14:01)
[2023-12-06 14:04] LABS: Alanine Aminotransferase 18 U/L (6-35); Albumin Level 4.6 g/dL (3.5-5.1); Alkaline Phosphatase 84 U/L (38-126); Anion Gap 11 mmol/L (4-12); Aspartate Amino Transferase 32 U/L (14-36); Bilirubin,Total 1.1 mg/dL (0.2-1.3); Blood Urea Nitrogen 14 mg/dL (7-17); Calcium 9.5 mg/dL (8.4-10.2); Carbon Dioxide 23 mmol/L (22-30); Chloride 103 mmol/L (98-107); Estimated Glomerular Filt Rate 36; Glucose 128 mg/dL (65-110); Potassium 3.5 mmol/L (3.4-5.0); Sodium 137 mmol/L (137-145)
[2023-12-06] MEDS: dilTIAZem 100 MG/100 ML 100 MG/100 ML BAG IV CONT (14:04)
[2023-12-06 14:05] LABS: INR 1.3; Prothrombin Time 17.1 Seconds (11.1-14.7)
[2023-12-06 14:10] LABS: Appearance Urine Clear (Clear); Bacteria Urine None Seen /hpf; Bilirubin Urine Negative (Negative); Blood Urine Trace (Negative); Color Urine Yellow (Yellow); Glucose Urine UA Negative (Negative); Ketones Urine Negative (Negative); Leukocyte Esterase Ur 1+ LEU/UL (Negative); Nitrate Urine Negative (Negative); Non Pathogenic Casts 0-2; Protein Urine Negative (Negative); RBC Urine 0-2 /hpf (0-2); Specific Grav Ur 1.007 (1.001-1.035); Squamous Epithelial Cell Urine None Seen /hpf (Few); Urobilinogen Urine 0.2 mg/dL (<2.0)
[2023-12-06 14:16] LABS: NT Pro B Type Natriuretic Pept 433 pg/mL (19.9-100); Troponin I 0.016 ng/mL (0.000-0.034)
[2023-12-06 14:26] LABS: Add Urine Microscopic? YES
--- NOTE | 2023-12-06 17:26 | PC.NURSE ---
patient did not receive dinner tray. called food and nutrition again.
[2023-12-06 17:27] LABS: Troponin I 0.026 ng/mL (0.000-0.034)
[2023-12-06] MEDS: SODIUM CHLORIDE 0.9% IV 1,000 ML 125 ML IV CONT (18:45)
--- NOTE | 2023-12-06 18:48 | PC.NURSE ---
patient ambulated to restroom with standby assistance. tolerated well. no complaints. readjusted in bed. call light within reach.
[2023-12-06 18:59] LABS: Troponin I 0.013 ng/mL (0.000-0.034)
[2023-12-06] MEDS: ONDANSETRON INJ 4 MG/2 ML VIAL IV PUSH (20:24)
--- NOTE | 2023-12-06 20:30 | PM.IMHP ---
H&P: HPI History of Present Illness Date/Time: 12/06/23 20:30 Chief Complaint: dizziness Narrative: This is an 83-year-old female with past medical history significant for chronic back pain, GERD, obstructive sleep apnea, paroxysmal atrial fibrillation, hypertension. patient presents to the emergency room after having episode of dizziness, palpitations, denies any nausea, vomiting, fevers, rigors, chills, no chest pain, no leg swelling. Has been her usual state of health up until this moment. Patient had similar episode the day before falling to her floor was evaluated and discharged home. Today was found to have atrial fibrillation with rapid ventricular response. Patient has been placed on Cardizem drip and placed in observation for further evaluation management and treatment. EXAMINATION: XR chest 1V DATE: 12/06/2023 14:20 INDICATION: Dizziness. TECHNIQUE: A single frontal view of the chest was obtained. COMPARISON: Chest single view 12/04/2023 FINDINGS: Again seen are airspace opacities with volume loss in right lung upper lobe. No pleural effusion or pneumothorax. Cardiomegaly is noted. Surgical clips in the right upper quadrant are likely from cholecystectomy. IMPRESSION: 1. 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 2. Cardiomegaly. Non-contrast Head CT History: Status post fall Technique:? Axial non-contrast imaging of the brain was performed. Dose reduction technique was used on this scan by utilizing automated exposure control and iterative reconstruction technique. The dose-length product (DLP) was 605.33 mGy-cm. Findings:? There is no evidence of intracranial hemorrhage, mass lesion, or acute infarct.? Brain parenchyma appears normal.? The ventricles and subarachnoid spaces are normal in size.? The calvarium appears normal.? The visualized paranasal sinuses and mastoid air cells are clear. Impression: No significant abnormality seen. [facility] Past Medical History Medical History Anxiety Aortic valve regurgitation Moderate by echocardiogram in October 2018. Followed by Dr. Velasco. Arthritis Benzodiazepine dependence BMI 28.0-28.9,adult BMI 30.0-30.9,adult Bronchiectasis Prior imaging demonstrated bronchiectasis in bilateral lower lobes with chronic scarring. Chronic midline low back pain with sciatica Dementia Reported by daughter, however the patient disputes this. Depression Diverticulitis Gastroesophageal reflux disease Hyperlipidemia Hypertension Nausea Obstructive sleep apnea Paroxysmal atrial fibrillation She has declined anticoagulation and antiarrhythmics previously but is now on metoprolol daily. She is followed by Dr. Velasco. Surgical History Surgical History History of appendectomy History of cardiac catheterization No known intervention. History of cataract surgery History of cholecystectomy History of tooth extraction Status post appendectomy Status post cataract extraction Status post hysterectomy Status post tubal ligation Family History Family History Father Acute myocardial infarction Family history of alcoholism Gout Tobacco abuse Mother Family history of alcoholism Sibling Acute myocardial infarction Heart disease Sibling Brain aneurysm Daughter Bowel perforation July 2020 sounds like it may have been a bowel perforation related to hernia and possibly some diabetic problems.. Daughter Heart disease age 35 of heart attack Acute myocardial infarction Daughter COVID-19 Cyst of breast Social History Social History Social History: The patient has been since 2017. She lives in [place] with her daughter and son-in-law. Grandson and great gr
[2023-12-06 20:32] LABS: Troponin I 0.027 ng/mL (0.000-0.034)
--- NOTE | 2023-12-06 23:05 | PC.NURSE ---
2304-REPORT TO OFELIA ROONEY
--- NOTE | 2023-12-06 23:41 | ADMGEN ---
This patient, Chiara Faith, was admitted to IMU Room 206-02 at 2330 on 12/06/2023. Patient/family oriented to hospital policies and general routines including ID bracelet, bed and alarms, visiting hours, pain management, procedures, bathroom and other care routines, personal items, smoking policy, room service/diet, and visiting hours. Information on how to activate the Rapid Response Team has been discussed. Patient/Family are encouraged to report perceived risks to care and to ask questions if they do not understand what they are told or what they should do.
[2023-12-07] VITALS (22 sets, daily range): BP systolic 101–153; BP diastolic 46–119; PULSE 70–104; RESP 15–22; TEMP 36.2–36.4; O2SAT 95–98
--- NOTE | 2023-12-07 | ECHO_ITS ---
Patient Info Name: Chiara Faith Age: 83 years : 1940 Gender: Female Ht: 58 in Wt: 145 lbs BSA: 1.67 m2 HR: 80 bpm BP: 121 / 46 mmHg Heart Rhythm: Atrial Fibrillation Technical Quality: Fair Exam Date: 12/07/2023 11:31 AM Exam Location: Echo Lab Exam Room: [facility] Patient Status: Outpatient Admit Date: 12/06/2023 Staff Ordering Physician: Kiersten Samuel APRN [employer] Plant Operator Supervisor: Ginette Shah RDCS Attending Provider: Nick Perera MD Referring Physician: Lizzie JIM; Exam Type: CA echo doppler color flow Study Info Indications - AFIB Complete two-dimensional, color flow and Doppler transthoracic echocardiogram is performed. Summary 1. Complete two-dimensional, color flow and Doppler transthoracic echocardiogram is performed. 2. Left ventricular chamber dimension is normal. 3. Left ventricular systolic function is normal, estimated at 65-70%. 4. There is moderately increased left ventricular wall thickness. 5. Right ventricular systolic function is normal. 6. Left atrial chamber dimension is mildly enlarged. 7. Right atrial chamber dimension is mildly enlarged. 8. There is mild aortic valve regurgitation. 9. There is mild tricuspid valve regurgitation. 10. There is mild pulmonic regurgitation. Left Ventricle Left ventricular chamber dimension is normal. Left ventricular systolic function is normal, estimated at 65-70%. There is moderately increased left ventricular wall thickness. Right Ventricle Right ventricular chamber dimension is normal. Right ventricular systolic function is normal. Left Atria Left atrial chamber dimension is mildly enlarged. Right Atria Right atrial chamber dimension is mildly enlarged. Atrial Septum Intact interatrial septum visualized by color flow imaging. Aortic Valve The aortic valve is probable trileaflet. There is no aortic valve stenosis. There is mild aortic valve regurgitation. There is moderate aortic valve calcification. Pulmonic Valve The pulmonic valve is not well visualized. There is mild pulmonic regurgitation. Mitral Valve There is trace mitral valve regurgitation. Tricuspid Valve There is mild tricuspid valve regurgitation. Pericardium/Pleural There is no pericardial effusion. Inferior Vena Cava Normal inferior vena cava with >50% collapse upon inspiration consistent with normal right atrial pressure, 3 mmHg. Aorta The aortic root size at the sinus of Valsalva is normal. Left Ventricular Outflow Tract Name Value Normal LVOT 2D LVOT Diameter 2.0 cm LVOT Doppler LVOT Peak Gradient 7 mmHg LVOT Mean Gradient 4 mmHg LVOT VTI 25 cm LVOT VTI/AV VTI Ratio 1.0 LVOT Stroke Volume 80 ml LVOT CO 18.6 l/min LVOT CI 11.1 l/min/m2 Pulmonic Valve Name Value Normal RVOT Doppler
[2023-12-07] MEDS: MELATONIN 3 MG TABLET PO ×2 (02:13→20:33)
[2023-12-07] MEDS: levoFLOXacin 750 MG/D5W 150 ML 750 MG/150 ML BAG 100 MG IVPB (02:14)
[2023-12-07] MEDS: dilTIAZem 100 MG/100 ML 100 MG/100 ML BAG IV CONT (04:04)
[2023-12-07] MEDS: SOTALOL HCL 80 MG TABLET PO ×2 (09:24→20:32)
[2023-12-07] MEDS: PANTOPRAZOLE 40 MG TABLET PO (09:24)
[2023-12-07] MEDS: LOSARTAN POTASSIUM 100 MG TABLET PO (09:24)
[2023-12-07] MEDS: ASPIRIN 81 MG ENTERIC TABLET PO (09:24)
[2023-12-07] MEDS: APIXABAN 5 MG TABLET PO ×2 (09:24→20:33)
[2023-12-07] MEDS: DICLOFENAC SODIUM 1% 100 GM GEL (*BKC) 1 APPLIC TOPICAL ×2 (09:25→20:33)
[2023-12-07] MEDS: ALPRAZolam (*CRX) 0.5 MG TABLET PO ×2 (09:27→20:53)
[2023-12-07 09:28] LABS: Anion Gap 10 mmol/L (4-12); Blood Urea Nitrogen 10 mg/dL (7-17); Calcium 9.4 mg/dL (8.4-10.2); Carbon Dioxide 21 mmol/L (22-30); Chloride 107 mmol/L (98-107); Estimated Glomerular Filt Rate 43; Glucose 153 mg/dL (65-110); Phosphorus 3.3 mg/dL (2.5-4.5); Potassium 3.9 mmol/L (3.4-5.0); Sodium 138 mmol/L (137-145)
--- NOTE | 2023-12-07 13:32 | PM.IMPN ---
Progress Note: A&P Assessment and Plan (1) Atrial fibrillation with rapid ventricular response: Code(s): I48.91 - Unspecified atrial fibrillation Status: Acute Assessment and Plan: Patient with known AFib. She is on Sotalol and Eliquis chronically. Found to have AFib/RVR to 120's so start on Cardizem drip Echo ordered. She is a patient of [facility] Diltiazem is off now. Add oral Diltiazem Monitor on tele (2) Dizziness: Code(s): R42 - Dizziness and giddiness Status: Acute Assessment and Plan: Patient having episodes of dizziness and with fall prior to admission. CT brain showing no acute findings. Left hand xray showing no acute process [place] likely secondary to atrial fibrillation with rapid ventricular response PT/OT Check left hip xray (3) Aortic valve regurgitation: Code(s): I35.1 - Nonrheumatic aortic (valve) insufficiency Status: Acute Assessment and Plan: Hx of AI. Echo ordered Continue to monitor (4) CKD (chronic kidney disease) stage 3, GFR 30-59 ml/min: Code(s): N18.3 - Chronic kidney disease, stage 3 (moderate) Status: Acute Assessment and Plan: Has CKD with Cr 1.2-1.4 range Cr stable and within her baseline Continue to monitor BUN and creatinine (5) Chronic combined systolic and diastolic congestive heart failure: Code(s): I50.42 - Chronic combined systolic (congestive) and diastolic (congestive) heart failure Status: Acute Assessment and Plan: Patient appears euvolemic on physical exam CXR showing chronic changes but no acute findings. Echo today (6) GERD (gastroesophageal reflux disease): Code(s): K21.9 - Gastro-esophageal reflux disease without esophagitis Status: Acute Assessment and Plan: Stable. Continue PPI Plan Constipation - suppository,miralax ?UTI - UA noted. UCx ordered. Will stop Levaquin and monitor for now. DVT prophylaxis - Eliquis Code status - Full Subjective Date/time seen: 12/07/23 13:32 Interval history: 83yo female with pAFib, YOSI, chronic back pain and HTN here for dizziness. Feels constipated. Dizziness is much better. No Cp or SOB. no n/v. passing flatus. Complains of left hip, wrist pain from the fall. She is up walking to the bathroom. Exam Narrative: AF 97.4 101/49 78 22 97% ra Gen - NARD Chest - CTA bilaterally, nml RR CV - irregularly irregular; Tele showing AFib with controlled rate Abd - Soft, protuberant, occasional guarding, not tympanitic Ext - trace pedal edema. Left hand bruising. Normal ROM to the left wrist without bony tenderness to the left wrist, forearm or hand. Normal ROM left hip without pain or limitation. Left lateral hip point tenderness Psych - Nml mood and affect Skin - Warm and dry Objective Data Vital Signs Vital Signs: Vital Signs - 24 hr 12/06/23 13:40 12/06/23 14:00 12/06/23 14:04 Temperature Pulse Rate 121 H 112 H 115 H Respiratory Rate 24 H 26 H Blood Pressure 144/87 H 190/99 H 129/95 H Pulse Oximetry 97 Oxygen Delivery 12/06/23 13:35 12/06/23 13:45 12/06/23 13:46 Temperature Pulse Rate 118 H 120 H 117 H Respiratory Rate 19 22 H 24 H Blood Pressure 122/85 Pulse Oximetry 97 97 97 Oxygen Delivery 12/06/23 13:47 12/06/23 14:23 12/06/23 14:30 Temperature Pulse Rate 112 H 124 H 89 Respiratory Rate 25 H 17 18 Blood Pressure 132/99 H Pulse Oximetry 97 98 98 Oxygen Delivery 12/06/23 14:31 12/06/23 14:32 12/06/23 14:36 Temperature Pulse Rate 98 96 102 H Respiratory Rate 20 22 H 24 H Blood Pressure 128/90 Pulse Oximetry 95 98 96 Oxygen Delivery 12/06/23 14:37 12/06/23 14:50 12/06/23 15:00 Temperature Pulse Rate 96 103 H 99 Respiratory Rate 24 H 25 H 24 H Blood Pressure Pulse Oximetry 96 97 96 Oxygen Delivery 12/06/23 15:02 12/06/23 15:23 12/06/23 15:30 Temperature Pulse Rate 106 H 96 91 Resp
--- NOTE | 2023-12-07 14:40 | PCPTNOTE ---
Attempted PT evaluation, Pt has a pending hip x-ray. Will follow
[2023-12-07] MEDS: polyethylene glycoL 3350 17 GM POWD.PACK PO (15:42)
[2023-12-07] MEDS: LOVASTATIN 20 MG TABLET 40 MG PO (17:07)
[2023-12-07] MEDS: dilTIAZem HCL 30 MG TABLET PO (17:07)
[2023-12-08] VITALS (8 sets, daily range): BP systolic 122–144; BP diastolic 64–65; PULSE 59–95; RESP 15–18; TEMP 35.8–36.8; O2SAT 96–99
[2023-12-08] MEDS: dilTIAZem HCL 30 MG TABLET PO ×3 (01:01→11:46)
[2023-12-08] MEDS: SOTALOL HCL 80 MG TABLET PO (08:20)
[2023-12-08] MEDS: PANTOPRAZOLE 40 MG TABLET PO (08:20)
[2023-12-08] MEDS: LOSARTAN POTASSIUM 100 MG TABLET PO (08:20)
[2023-12-08] MEDS: ASPIRIN 81 MG ENTERIC TABLET PO (08:20)
[2023-12-08] MEDS: APIXABAN 5 MG TABLET PO (08:20)
[2023-12-08] MEDS: polyethylene glycoL 3350 17 GM POWD.PACK PO (08:23)
[2023-12-08] MEDS: ALPRAZolam (*CRX) 0.5 MG TABLET PO (09:34)
--- NOTE | 2023-12-08 11:16 | PM.DS ---
DS: Admitting Diagnosis Discharge Date 12/08/23 Admitting Diagnosis Dizziness DS: Discharge Diagnosis Discharge Diagnosis (1) Atrial fibrillation with rapid ventricular response: Code(s): I48.91 - Unspecified atrial fibrillation Status: Acute (2) Dizziness: Code(s): R42 - Dizziness and giddiness Status: Acute (3) Aortic valve regurgitation: Code(s): I35.1 - Nonrheumatic aortic (valve) insufficiency Status: Acute (4) CKD (chronic kidney disease) stage 3, GFR 30-59 ml/min: Code(s): N18.3 - Chronic kidney disease, stage 3 (moderate) Status: Acute (5) Chronic combined systolic and diastolic congestive heart failure: Code(s): I50.42 - Chronic combined systolic (congestive) and diastolic (congestive) heart failure Status: Acute (6) GERD (gastroesophageal reflux disease): Code(s): K21.9 - Gastro-esophageal reflux disease without esophagitis Status: Acute DS: Summary Hospital Course Reason for hospitalization: 83yo female with pAFib, YOSI, chronic back pain and HTN here for dizziness. Please see H&P for details. Hospital Course: Patient was having episodes of dizziness and with falls prior to admission. CT brain showing no acute findings. Left hand xray showing no acute process. Left hip and pelvic xray showing no acute fractures. It was felt her dizziness likely secondary to atrial fibrillation with rapid ventricular response. Patient with known AFib. She is on Sotalol and Eliquis chronically. Found to have AFib/RVR to 120's in the ED so started on Cardizem drip. EKG showing AFib/RVR (129) with borderline LAD, LVH and ST deviation and moderate T wave abnormalities in lateral leads but no change from prior except for the RVR. Echo showing EF 60-65%, moderately increased LV wall thickness, mildly biatrial enlargement and mild valvular disease (mild AI noted). She is a patient of [facility]. HR became better controlled. Diltiazem drip stopped and she was transitioned to oral Diltiazem. She has CKD with Cr 1.2-1.4 range. Cr was stable and within her baseline. UA noted. UCx ordered. Was on Levaquin but stopped. UCx was negative. She was up abmulating to the bathroom. She overall did well and was able to be discharged home on 12/08/23. Had to change Lovastatin to atorvastatin due to interaction with diltiazem. Status at Discharge Cognitive/behavioral status at discharge: stable Time Spent with Patient Time attestation: Total time spent providing and/or coordinating discharge services: 34 minutes Time spent: Greater than 30 minutes Exam Narrative: AF 96.5 144/64 59 18 96% ra Gen - NARD Chest - CTA bilaterally, nml RR CV - irregularly irregular; Tele showing AFib with controlled rate Abd - Soft, NT, +BS Ext - trace pedal edema. Left hand bruising. Psych - Nml mood and affect Skin - Warm and dry Discharge Plan Discharge Attending physician on discharge: Nick Perera Discharging Clinician: Nick Perera Anticipated Discharge Date/Time: 12/08/23 11:32 Patient Disposition: Home, Self-Care Activity: as tolerated Diet: heart healthy Discharge Instructions: Walk with walker. Take precautions to avoid falls. Rise slowly from a lying or sitting position. Pause before standing or walking. Check daily morning weights after voiding. Call your doctor if you gain more than 3 lb in 2 days or 5 lb in 1 week. Contact your doctor or call 911 and come to the Emergency Room if you have chest pain, dizziness or other worrisome symptoms. Avoid NSAIDs (ibuprofen, naproxen, Aleve). Tylenol is safe to take. Follow-up with your primary care provider in 1-2 weeks. Please call for appointment. Follow-up with Highway Safety Engineer in 1-2 weeks. Please call for an appointment. Thank you for using [facility] for your health care needs. Patient Instructions: Antibiotic Form, Apixaban (By mouth), Heart Failure (GEN), A-fib (A
== END 2023-12-08 11:52 | disposition home or self-care (01) ==
LOC: ANHED 14:58 → ANHIMU 23:57
PROVIDERS: Admitting Provider Internal Medicine; Emergency Provider Emergency Medicine; PCP Family Medicine; Visit Provider Internal Medicine
DX: I48.91 Unspecified atrial fibrillation (principal); R42 Dizziness and giddiness; I08.2 Rheumatic disorders of both aortic and tricuspid valves; I13.0 Hypertensive heart and chronic kidney disease with heart failure and stage 1 through stage 4 chronic kidney disease, or unspecified chronic kidney disease; N18.30 Chronic kidney disease, stage 3 unspecified; I50.42 Chronic combined systolic (congestive) and diastolic (congestive) heart failure; K21.9 Gastro-esophageal reflux disease without esophagitis; K59.00 Constipation, unspecified; M25.552 Pain in left hip; M25.532 Pain in left wrist; Z91.81 History of falling; M15.9 Polyosteoarthritis, unspecified; G89.29 Other chronic pain; M54.9 Dorsalgia, unspecified; J84.10 Pulmonary fibrosis, unspecified; F41.9 Anxiety disorder, unspecified; F32.A Depression, unspecified; E78.5 Hyperlipidemia, unspecified; G47.33 Obstructive sleep apnea (adult) (pediatric); Z79.82 Long term (current) use of aspirin; Z79.51 Long term (current) use of inhaled steroids; Z79.01 Long term (current) use of anticoagulants; Z79.891 Long term (current) use of opiate analgesic; Z79.899 Other long term (current) drug therapy
CPT/HCPCS: 36415; 70450; 71045; 73130; 73502; 80053; 80069; 81001; 83735; 83880; 84484; 85025; 85610; 87086; 93005; 93306; 96365; 96366; 96368; 96375; 99285; A9270; G0378; J1956; J2405; J7030

== ENCOUNTER 2024-01-23 22:07 | Emergency (ER) | payer MEDICARE, SELFPAY ==
--- NOTE | ~2024-01-23 | XR_ITS ---
EXAMINATION: XR chest 2V Exam Date/Time: 01/23/2024 22:49 CDT HISTORY: afib, DIZZINESS Comparison: 12/06/2023; CT chest 10/30/2023. RESULT: Lines, tubes, and devices: None. Lungs and pleura: Airspace opacity and volume loss in the right upper lobe. Linear opacities in the left peripheral lung base likely scar/atelectasis. Cardiomediastinal silhouette: Stable. Other: No acute osseous or upper abdominal finding. IMPRESSION: No acute cardiopulmonary process. Chronic right upper lobe radiation fibrosis. Reviewed, dictated and finalized at location K.
--- NOTE | 2024-01-23 22:09 | ECG_ITS ---
SEE SCANNED COPY FOR CONFIRMED REPORT MTDD
[2024-01-23 22:12] VITALS: BP 138/99; PULSE 103; RESP 20; TEMP 36.1; O2SAT 99
[2024-01-23 23:40] LABS: Basophils Absolute Auto 0.1 K/mm3 (0.0-0.1); Basophils Percent Auto 0.6 % (0.2-1.2); Eosinophils Absolute Auto 0.3 K/mm3 (0-0.3); Eosinophils Percent Auto 2.8 % (0-4.4); Hematocrit 40.6 % (37.0-47.0); Immature Granulocyte Absolute 0.04 K/mm3 (0.00-0.031); Immature Granulocyte Percent A 0.4 % (0-0.5); Lymphocytes Absolute Auto 3.05 K/mm3 (0.9-3.2); Mean Corpuscular Hemoglobin 28.4 pg (26-34); Mean Corpuscular Volume 88.6 fl (80-100); Mean Platelet Volume 10.3 fl (7.4-10.4); Monocytes Absolute Auto 0.7 K/mm3 (0.1-0.6); Monocytes Percent Auto 7.1 % (2.6-8.5); Neutrophils Percent Auto 59.1 % (45.5-73.1); Platelet Count Result 229 k/mm3 (150-375); Red Blood Count 4.58 M/mm3 (4.2-5.4); Red Cell Distribution Width 14.6 % (11.5-14.5); White Blood Count 10.2 K/mm3 (4.5-10.0)
[2024-01-23 23:52] LABS: Alanine Aminotransferase 12 U/L (6-35); Albumin Level 4.5 g/dL (3.5-5.1); Alkaline Phosphatase 104 U/L (38-126); Anion Gap 9 mmol/L (4-12); Aspartate Amino Transferase 21 U/L (14-36); Bilirubin,Total 0.6 mg/dL (0.2-1.3); Blood Urea Nitrogen 16 mg/dL (7-17); Calcium 9.6 mg/dL (8.4-10.2); Carbon Dioxide 25 mmol/L (22-30); Chloride 105 mmol/L (98-107); Estimated Glomerular Filt Rate 36; Glucose 132 mg/dL (65-110); Lipase 146 U/L (23-300); Potassium 3.6 mmol/L (3.4-5.0); Sodium 139 mmol/L (137-145)
[2024-01-23 23:55] LABS: INR 1.3; Prothrombin Time 16.4 Seconds (11.1-14.7)
[2024-01-23 23:56] LABS: Partial Thromboplastin Time 30.5 Seconds (22.3-36.8)
[2024-01-24] VITALS (8 sets, daily range): BP systolic 109–137; BP diastolic 66–95; PULSE 62–129; RESP 14–21; O2SAT 96–100
[2024-01-24 00:04] LABS: Troponin I < 0.012 ng/mL (0.000-0.034)
[2024-01-24] MEDS: SODIUM CHLORIDE 0.9% IV 500 ML 999 ML IV CONT (01:39)
[2024-01-24] MEDS: ASPIRIN 81 MG CHEWABLE TABLET 324 MG PO (01:39)
[2024-01-24] MEDS: dilTIAZem HCl INJ 25 MG/5 ML VIAL 10 MG IV PUSH (01:40)
[2024-01-24 01:44] LABS: Magnesium 2.3 mg/dL (1.6-2.3)
[2024-01-24 03:29] LABS: Troponin I < 0.012 ng/mL (0.000-0.034)
--- NOTE | 2024-01-24 03:53 | ED.GENADULT ---
HPI - General Adult General Chief complaint: Arrhythmia/Palpitations Stated complaint: afib acting up Time Seen by Provider: 01/24/24 01:24 History of Present Illness HPI narrative: Patient is a 83-year-old female presents emergency department with chief complaint of atrial fibrillation. The patient reports that she has history of atrial fibrillation and takes sotalol the patient reports that she started feeling dizzy and short of breath and noticed that her heart was beating fast. The patient reports that he is currently not having any chest pain Related Data Home Medications Medication Instructions Recorded Confirmed melatonin 3 mg tablet 3 mg PO HS 10/31/21 12/06/23 sotalol 80 mg tablet 80 mg PO BID 04/18/22 12/06/23 losartan 100 mg tablet 100 mg PO DAILY 12/06/23 12/06/23 Allergies Allergy/AdvReac Type Severity Reaction Status Date / Time Penicillins Allergy Severe Hives Verified 12/14/23 11:30 gabapentin Allergy Intermediate Chest Pain Verified 12/14/23 11:30 nitrofurantoin Allergy Intermediate Hives Verified 12/14/23 11:30 [From Macrobid] Quinolones Allergy Mild Unknown Verified 12/14/23 11:30 cefprozil Allergy Unknown Unknown Verified 12/14/23 11:30 cefuroxime Allergy Unknown Unknown Verified 12/14/23 11:30 Cephalosporins Allergy Unknown Unknown Verified 12/14/23 11:30 gatifloxacin Allergy Unknown Unknown Verified 12/14/23 11:30 metronidazole Allergy Unknown Unknown Verified 12/14/23 11:30 fluoxetine [From Prozac] AdvReac Mild Dizziness Verified 12/14/23 11:30 erythromycin base AdvReac Unknown Stomach Verified 12/14/23 11:30 cramps loratadine [From Claritin] AdvReac Unknown Jittery Verified 12/14/23 11:30 Review of Systems Review of Systems: A 10 system review of systems was completed on the patient and is negative except for what is stated in the HPI. Nursing and ancillary documentation was reviewed. [facility] Past Medical History Medical History Anxiety Aortic valve regurgitation Moderate by echocardiogram in October 2018. Followed by Dr. Velasco. Arthritis Benzodiazepine dependence BMI 28.0-28.9,adult BMI 30.0-30.9,adult BMI greater than 30 Bronchiectasis Prior imaging demonstrated bronchiectasis in bilateral lower lobes with chronic scarring. Chronic midline low back pain with sciatica Dementia Reported by daughter, however the patient disputes this. Depression Diverticulitis Gastroesophageal reflux disease Hyperlipidemia Hypertension Nausea Obstructive sleep apnea Paroxysmal atrial fibrillation She has declined anticoagulation and antiarrhythmics previously but is now on metoprolol daily. She is followed by Dr. Velasco. Surgical History Surgical History History of appendectomy History of cardiac catheterization No known intervention. History of cataract surgery History of cholecystectomy History of tooth extraction Status post appendectomy Status post cataract extraction Status post hysterectomy Status post tubal ligation Family History Family History Father Acute myocardial infarction Family history of alcoholism Gout Tobacco abuse Mother Family history of alcoholism Sibling Acute myocardial infarction Heart disease Sibling Brain aneurysm Daughter Bowel perforation July 2020 sounds like it may have been a bowel perforation related to hernia and possibly some diabetic problems.. Daughter Heart disease age 35 of heart attack Acute myocardial infarction Daughter COVID-19 Cyst of breast Social History Social History Social History: The patient has been since 2017. She lives in [place] with her daughter and son-in-la
--- NOTE | 2024-01-24 04:00 | PC.NURSE ---
Patient able to ambulate around the department without assistance. States she feels fine and has no dizziness. Patient states she is ready to go home.
== END 2024-01-24 04:17 | disposition home or self-care (01) ==
PROVIDERS: Emergency Provider Emergency Medicine; PCP Family Medicine
DX: I48.0 Paroxysmal atrial fibrillation (principal); I35.1 Nonrheumatic aortic (valve) insufficiency; I10 Essential (primary) hypertension; E78.5 Hyperlipidemia, unspecified; M19.90 Unspecified osteoarthritis, unspecified site; K21.9 Gastro-esophageal reflux disease without esophagitis; G47.33 Obstructive sleep apnea (adult) (pediatric); Z98.49 Cataract extraction status, unspecified eye; Z90.49 Acquired absence of other specified parts of digestive tract; Z90.710 Acquired absence of both cervix and uterus; Z79.01 Long term (current) use of anticoagulants; Z79.899 Other long term (current) drug therapy; Z79.82 Long term (current) use of aspirin
CPT/HCPCS: 36415; 71046; 80053; 83690; 83735; 84484; 85025; 85610; 85730; 93005; 96361; 96374; 99284; A9270; J7040

== ENCOUNTER 2024-04-28 19:29 | Emergency (ER) | payer MEDICARE, SELFPAY ==
--- NOTE | 2024-04-28 19:31 | ECG_ITS ---
Test Date: 2024-04-28 19:35:09 Measurements Intervals [place] Rate: 110 P: 0 HI: 0 QRS: -23 QRSD: 87 T: 70 QT: 363 QTc: 493 Interpretive Statements ATRIAL FIBRILLATION WITH RAPID VENTRICULAR RESPONSE DELAYED PRECORDIAL R/S TRANSITION LEFT VENTRICULAR HYPERTROPHY WITH ST-T CHANGE BASELINE ARTIFACT- I, II, AVR ABNORMAL ECG No previous ECG available for comparison Electronically Signed On 04-28-2024 20:03:47 CDT by Seamus Cowan D.O.
[2024-04-28 19:40] VITALS: BP 159/69; PULSE 104; RESP 20; TEMP 36.2; O2SAT 99
[2024-04-28 20:41] VITALS: BP 143/111; PULSE 122; RESP 19; O2SAT 98
[2024-04-28] MEDS: dilTIAZem HCl INJ 25 MG/5 ML VIAL 10 MG IV PUSH (20:41)
[2024-04-28 20:46] VITALS: BP 112/81; PULSE 63; RESP 19; O2SAT 98
[2024-04-28 20:50] VITALS: PULSE 77
[2024-04-28 21:00] LABS: Basophils Absolute Auto 0.1 K/mm3 (0.0-0.1); Basophils Percent Auto 0.7 % (0.2-1.2); Eosinophils Absolute Auto 0.2 K/mm3 (0-0.3); Eosinophils Percent Auto 2.4 % (0-4.4); Hematocrit 38.4 % (37.0-47.0); Hemoglobin 12.3 g/dL (12.0-15.0); Immature Granulocyte Absolute 0.02 K/mm3 (0.00-0.031); Immature Granulocyte Percent A 0.2 % (0-0.5); Lymphocytes Absolute Auto 2.53 K/mm3 (0.9-3.2); Lymphocytes Percent Auto 30.1 % (18.3-44.2); Mean Corpuscular Volume 87.3 fl (80-100); Mean Platelet Volume 10.6 fl (7.4-10.4); Monocytes Absolute Auto 0.8 K/mm3 (0.1-0.6); Neutrophils Absolute Auto 4.8 K/mm3 (1.3-6.7); Neutrophils Percent Auto 57.6 % (45.5-73.1); Platelet Count Result 217 k/mm3 (150-375); White Blood Count 8.4 K/mm3 (4.5-10.0)
[2024-04-28 21:05] LABS: Glucose Point of Care 137 mg/dl (65-105)
[2024-04-28 21:15] LABS: Alanine Aminotransferase 14 U/L (6-35); Albumin Level 4.3 g/dL (3.5-5.1); Alkaline Phosphatase 99 U/L (38-126); Anion Gap 10 mmol/L (4-12); Aspartate Amino Transferase 25 U/L (14-36); Bilirubin,Total 0.5 mg/dL (0.2-1.3); Blood Urea Nitrogen 11 mg/dL (7-17); Calcium 9.4 mg/dL (8.4-10.2); Carbon Dioxide 25 mmol/L (22-30); Chloride 104 mmol/L (98-107); Estimated Glomerular Filt Rate 43; Glucose 136 mg/dL (65-110); Magnesium 2.1 mg/dL (1.6-2.3); Potassium 3.7 mmol/L (3.4-5.0); Sodium 139 mmol/L (137-145)
--- NOTE | 2024-04-28 21:36 | ED.GENADULT ---
HPI - General Adult General Chief complaint: Arrhythmia/Palpitations Stated complaint: palpations Time Seen by Provider: 04/28/24 19:54 History of Present Illness HPI narrative: This is an 84-year-old female with history of AFib on sotalol and Eliquis presenting for AFib with RVR. Patient dose of 5:00 p.m. she started palpitations and shortness of breath. This typically happens when her AFib has RVR. She does not any chest pain, abdominal pain or lower extremity edema. Related Data Home Medications Medication Instructions Recorded Confirmed melatonin 3 mg tablet 3 mg PO HS 10/31/21 03/01/24 sotalol 80 mg tablet 80 mg PO BID 04/18/22 03/01/24 Allergies Allergy/AdvReac Type Severity Reaction Status Date / Time Penicillins Allergy Severe Hives Verified 03/01/24 10:56 gabapentin Allergy Intermediate Chest Pain Verified 03/01/24 10:56 nitrofurantoin Allergy Intermediate Hives Verified 03/01/24 10:56 [From Macrobid] Quinolones Allergy Mild Unknown Verified 03/01/24 10:56 cefprozil Allergy Unknown Unknown Verified 03/01/24 10:56 cefuroxime Allergy Unknown Unknown Verified 03/01/24 10:56 Cephalosporins Allergy Unknown Unknown Verified 03/01/24 10:56 gatifloxacin Allergy Unknown Unknown Verified 03/01/24 10:56 metronidazole Allergy Unknown Unknown Verified 03/01/24 10:56 fluoxetine [From Prozac] AdvReac Mild Dizziness Verified 03/01/24 10:56 erythromycin base AdvReac Unknown Stomach Verified 03/01/24 10:56 cramps loratadine [From Claritin] AdvReac Unknown Jittery Verified 03/01/24 10:56 [facility] Past Medical History Medical History Anxiety Aortic valve regurgitation Moderate by echocardiogram in October 2018. Followed by Dr. Velasco. Arthritis Benzodiazepine dependence BMI 28.0-28.9,adult BMI 30.0-30.9,adult BMI greater than 30 Bronchiectasis Prior imaging demonstrated bronchiectasis in bilateral lower lobes with chronic scarring. Chronic midline low back pain with sciatica Dementia Reported by daughter, however the patient disputes this. Depression Diverticulitis Gastroesophageal reflux disease Hyperlipidemia Hypertension Nausea Obstructive sleep apnea Paroxysmal atrial fibrillation She has declined anticoagulation and antiarrhythmics previously but is now on metoprolol daily. She is followed by Dr. Velasco. Surgical History Surgical History History of appendectomy History of cardiac catheterization No known intervention. History of cataract surgery History of cholecystectomy History of tooth extraction Status post appendectomy Status post cataract extraction Status post hysterectomy Status post tubal ligation Family History Family History Father Acute myocardial infarction Family history of alcoholism Gout Tobacco abuse Mother Family history of alcoholism Sibling Acute myocardial infarction Heart disease Sibling Brain aneurysm Daughter Bowel perforation July 2020 sounds like it may have been a bowel perforation related to hernia and possibly some diabetic problems.. Daughter Heart disease age 35 of heart attack Acute myocardial infarction Daughter COVID-19 Cyst of breast Social History Social History Social History: The patient has been since 2017. She lives in [place] with her daughter and son-in-law. Grandson and great grandson live next door. She has 3 daughters, 1 from an OR at age 30, and the other 1 recently from complications of diabetes. She is a lifelong nonsmoker and denies alcohol and drug use. Smoking status: Never smoker Second hand tobacco smoke exposure: Yes Alcohol intake: never Substance use: never Substance use type: does no
[2024-04-28 21:49] VITALS: BP 170/96; PULSE 68; RESP 18; O2SAT 99
== END 2024-04-28 21:50 | disposition home or self-care (01) ==
PROVIDERS: Emergency Provider Emergency Medicine; PCP Family Medicine
DX: I48.0 Paroxysmal atrial fibrillation (principal); I10 Essential (primary) hypertension; E78.5 Hyperlipidemia, unspecified; G47.33 Obstructive sleep apnea (adult) (pediatric); K21.9 Gastro-esophageal reflux disease without esophagitis; M19.90 Unspecified osteoarthritis, unspecified site; F41.9 Anxiety disorder, unspecified; F32.A Depression, unspecified; Z98.49 Cataract extraction status, unspecified eye; Z90.49 Acquired absence of other specified parts of digestive tract; Z90.710 Acquired absence of both cervix and uterus; Z79.01 Long term (current) use of anticoagulants; Z79.82 Long term (current) use of aspirin; Z79.899 Other long term (current) drug therapy; Z77.22 Contact with and (suspected) exposure to environmental tobacco smoke (acute) (chronic); I51.7 Cardiomegaly
CPT/HCPCS: 36415; 80053; 82948; 83735; 85025; 93005; 96374; 99284

== ENCOUNTER 2024-04-29 11:41 | Observation (INO) | payer MEDICARE, SELFPAY ==
[2024-04-29] VITALS (10 sets, daily range): BP systolic 112–161; BP diastolic 65–100; PULSE 86–125; RESP 18–27; TEMP 36.4–37.2; O2SAT 96–100; BMI 30.4
--- NOTE | ~2024-04-29 | XR_ITS ---
Clinical Indication: Weakness PA and lateral views of the chest: Comparison: 01/23/2024 Findings: Stable right upper lobe airspace opacity. Lungs are otherwise clear. Cardiomediastinal qamar houette is within normal limits. Bones and soft tissues are unremarkable. Impression: Stable right upper lobe airspace opacity, compatible with post radiation change. No acute abnormality. Reviewed, dictated and finalized at location . Impression: Stable right upper lobe airspace opacity, compatible with post radiation change . No acute abnormality.
--- NOTE | 2024-04-29 11:54 | ECG_ITS ---
Test Date: 2024-04-29 11:56:09 Measurements Intervals [place] Rate: 99 P: 0 CT: 0 QRS: -19 QRSD: 86 T: 122 QT: 360 QTc: 462 Interpretive Statements ATRIAL FIBRILLATION VENTRICULAR PREMATURE COMPLEX LEFT VENTRICULAR HYPERTROPHY WITH ST-T CHANGE BASELINE ARTIFACT- I, II, III, AVR, AVL, AVF ABNORMAL ECG Compared to ECG 04/28/2024 19:35:09 HEART RATE HAS DECREASED Electronically Signed On 04-29-2024 17:28:52 CDT by Seamus Cowan D.O.
[2024-04-29 12:05] LABS: Basophils Absolute Auto 0.1 K/mm3 (0.0-0.1); Basophils Percent Auto 0.7 % (0.2-1.2); Eosinophils Absolute Auto 0.2 K/mm3 (0-0.3); Eosinophils Percent Auto 2.3 % (0-4.4); Hematocrit 40.8 % (37.0-47.0); Hemoglobin 12.7 g/dL (12.0-15.0); Immature Granulocyte Absolute 0.05 K/mm3 (0.00-0.031); Immature Granulocyte Percent A 0.7 % (0-0.5); Lymphocytes Absolute Auto 1.58 K/mm3 (0.9-3.2); Lymphocytes Percent Auto 21.1 % (18.3-44.2); Mean Corpuscular HGB Conc 31.1 g/dl (32-36); Mean Corpuscular Hemoglobin 27.6 pg (26-34); Mean Corpuscular Volume 88.7 fl (80-100); Mean Platelet Volume 10.2 fl (7.4-10.4); Monocytes Absolute Auto 0.4 K/mm3 (0.1-0.6); Monocytes Percent Auto 5.5 % (2.6-8.5); Neutrophils Absolute Auto 5.2 K/mm3 (1.3-6.7); Neutrophils Percent Auto 69.7 % (45.5-73.1); Platelet Count Result 229 k/mm3 (150-375); Red Cell Distribution Width 15.1 % (11.5-14.5); White Blood Count 7.5 K/mm3 (4.5-10.0)
[2024-04-29 12:16] LABS: Alanine Aminotransferase 13 U/L (6-35); Albumin Level 4.1 g/dL (3.5-5.1); Alkaline Phosphatase 80 U/L (38-126); Anion Gap 11 mmol/L (4-12); Aspartate Amino Transferase 24 U/L (14-36); Bilirubin,Total 0.6 mg/dL (0.2-1.3); Blood Urea Nitrogen 10 mg/dL (7-17); Calcium 8.9 mg/dL (8.4-10.2); Carbon Dioxide 24 mmol/L (22-30); Chloride 103 mmol/L (98-107); Estimated Glomerular Filt Rate 39; Glucose 170 mg/dL (65-110); Potassium 3.7 mmol/L (3.4-5.0); Sodium 138 mmol/L (137-145)
[2024-04-29 13:11] LABS: Bacteria Urine None Seen /hpf; Non Pathogenic Casts 0-2; RBC Urine 0-2 /hpf (0-2); Squamous Epithelial Cell Urine None Seen /hpf (Few); WBC Urine 0-5 /hpf (0-3)
--- NOTE | 2024-04-29 13:11 | ED.WEAKNESS ---
HPI - Weakness General Chief complaint: Weakness Stated complaint: weak, SOB Time Seen by Provider: 04/29/24 12:31 Source: patient Mode of arrival: ambulatory Limitations: no limitations History of Present Illness HPI Narrative: Patient presents with concern for generalized weakness. She is also feeling short of breath. She denies any fever chest pain. She presented yesterday with same complaints. She has a history of atrial fibrillation for which she is sotalol b.i.d. 1/2 pills as well as Eliquis b.i.d. and Lasix 20 mg every morning. She has been compliant with all of her medications including the Xanax that she is also prescribed which she took this morning. Yesterday when she presented she was found to be in atrial fibrillation with rapid ventricular response but was pharmacologically cardioverted and stable for discharge. Patient notes that she also also on tramadol arthritis. She notes that she has had a chronic cough for the past 1 year has continue to try to take off her port with no change. She has an upcoming appointment with primary care physician Dr. Francois scheduled for May [address] scan scheduled for May 01, 2024 show monitor given she has a history of cancer in the import specialist is Dr. Mary and she has appointment with him in August 2024. Related Data Home Medications Medication Instructions Recorded Confirmed melatonin 3 mg tablet 3 mg PO HS 10/31/21 04/29/24 sotalol 80 mg tablet 120 mg PO BID 04/18/22 04/29/24 Allergies Allergy/AdvReac Type Severity Reaction Status Date / Time Penicillins Allergy Severe Hives Verified 04/29/24 11:54 gabapentin Allergy Intermediate Chest Pain Verified 04/29/24 11:54 nitrofurantoin Allergy Intermediate Hives Verified 04/29/24 11:54 [From Macrobid] Quinolones Allergy Mild Unknown Verified 04/29/24 11:54 cefprozil Allergy Unknown Unknown Verified 04/29/24 11:54 cefuroxime Allergy Unknown Unknown Verified 04/29/24 11:54 Cephalosporins Allergy Unknown Unknown Verified 04/29/24 11:54 gatifloxacin Allergy Unknown Unknown Verified 04/29/24 11:54 metronidazole Allergy Unknown Unknown Verified 04/29/24 11:54 fluoxetine [From Prozac] AdvReac Mild Dizziness Verified 04/29/24 11:54 erythromycin base AdvReac Unknown Stomach Verified 04/29/24 11:54 cramps loratadine [From Claritin] AdvReac Unknown Jittery Verified 04/29/24 11:54 [facility] Past Medical History Medical History Anxiety Aortic valve regurgitation Moderate by echocardiogram in October 2018. Followed by Dr. Velasco. Arthritis Benzodiazepine dependence Bronchiectasis Prior imaging demonstrated bronchiectasis in bilateral lower lobes with chronic scarring. Chronic midline low back pain with sciatica Dementia Reported by daughter, however the patient disputes this. Depression Diverticulitis Gastroesophageal reflux disease Hyperlipidemia Hypertension Nausea Non-small cell carcinoma of lung Obstructive sleep apnea Paroxysmal atrial fibrillation She has declined anticoagulation and antiarrhythmics previously but is now on metoprolol daily. She is followed by Dr. Velasco. Surgical History Surgical History History of appendectomy History of cardiac catheterization No known intervention. History of cataract extraction History of cholecystectomy History of hysterectomy History of tooth extraction History of tubal ligation Family History Family History Father Acute myocardial infarction Family history of alcoholism Gout Tobacco abuse Mother Family history of alcoholism Sibling Acute myocardial infarction Heart disease Sibling Brain aneurysm Daughter Bowel perforation July 2020 sounds like it may have been a bowel perforation related to hernia and possibly some diabetic proble
[2024-04-29 13:25] LABS: Appearance Urine Clear (Clear); Blood Urine Trace-Lysed (Negative); Color Urine Yellow (Yellow); Glucose Urine UA Negative (Negative); Ketones Urine Negative (Negative); Protein Urine Negative (Negative)
[2024-04-29 13:26] LABS: Add Urine Microscopic? YES; Bilirubin Urine Negative (Negative); Leukocyte Esterase Ur Trace LEU/UL (Negative); Nitrate Urine Negative (Negative); Urobilinogen Urine 0.2 mg/dL (<2.0)
[2024-04-29] MEDS: ONDANSETRON HCL ODT 4 MG TABLET PO (13:55)
[2024-04-29 13:57] LABS: NT Pro B Type Natriuretic Pept 2740 pg/mL (19.9-100)
[2024-04-29 14:16] LABS: Influenza A QL RT-PCR Negative (Negative); Influenza B QL RT-PCR Negative (Negative); RSV RNA, RT-PCR Negative (Negative); SARS-CoV-2 RNA PCR Negative (Negative)
[2024-04-29] MEDS: FUROSEMIDE INJ 40 MG/4 ML VIAL 20 MG IV PUSH (14:43)
--- NOTE | 2024-04-29 16:35 | ADMGEN ---
This patient, Chiara Faith, was admitted to Medical Room 252-01. Patient/family oriented to hospital policies and general routines including ID bracelet, bed and alarms, visiting hours, pain management, procedures, bathroom and other care routines, personal items, smoking policy, room service/diet, and visiting hours. Information on how to activate the Rapid Response Team has been discussed. Patient/Family are encouraged to report perceived risks to care and to ask questions if they do not understand what they are told or what they should do.
--- NOTE | 2024-04-29 17:05 | PM.IMHP ---
H&P: HPI History of Present Illness Date/Time: 04/29/24 17:05 Chief Complaint: Weakness and shortness of breath. Narrative: This is an 84-year-old female with paroxysmal atrial fibrillation on chronic anticoagulation, hypertension, hyperlipidemia, chronic kidney disease stage 3, gastroesophageal reflux disease, anxiety, and non-small cell lung carcinoma status post radiation who presented to the emergency department via private vehicle for evaluation of weakness and shortness of breath. The patient provides the following history. Last evening around 17:00 she developed palpitations and started to feel weak and short of breath. These symptoms are similar to previous episodes of atrial fibrillation with rapid ventricular response and she was seen last night in the ED for evaluation. She received 1 dose of diltiazem with improvement in her rates to the 60s to 80s after which she felt much better and was able to be discharged home with Cardiology follow-up. Unfortunately her symptoms returned and she has been feeling more short of breath. She also notices increase in swelling in her feet. She denies syncope, near syncope, fever, chills, sweats, cold and flu symptoms, chest pain, pleuritic pain, orthopnea, nausea, vomiting, and calf pain. In the ED: She is in atrial fibrillation with a heart rate as high as 111. Blood pressure is an SpO2 are stable. Labs were significant for a stable creatinine, glucose 170, proBNP of 2740. She tested negative for influenza, RSV, and COVID. Chest x-ray showed stable right upper lobe airspace opacity, compatible with post radiation changes but no acute abnormalities. EKG showed atrial fibrillation with a rate of [address] deviations in I and V4-6. She was given furosemide 20 mg IV x1 and is being admitted for closer monitoring. Review of Systems Review of Systems: 12 systems were reviewed and are negative except for as per HPI. [facility] Past Medical History Medical History (Updated 04/29/24 @ 22:32 by Alba Jamil PA-C) Anxiety Aortic valve regurgitation Moderate by echocardiogram in October 2018. Followed by Dr. Velasco. Arthritis Benzodiazepine dependence Bronchiectasis Prior imaging demonstrated bronchiectasis in bilateral lower lobes with chronic scarring. Chronic midline low back pain with sciatica Dementia Reported by daughter, however the patient disputes this. Depression Diverticulitis Gastroesophageal reflux disease Hyperlipidemia Hypertension Nausea Non-small cell carcinoma of lung Obstructive sleep apnea Paroxysmal atrial fibrillation She has declined anticoagulation and antiarrhythmics previously but is now on metoprolol daily. She is followed by Dr. Velasco. Surgical History Surgical History (Updated 04/29/24 @ 17:16 by Alba Jamil PA-C) History of appendectomy History of cardiac catheterization No known intervention. History of cataract extraction History of cholecystectomy History of hysterectomy History of tooth extraction History of tubal ligation Family History Family History Father Acute myocardial infarction Family history of alcoholism Gout Tobacco abuse Mother Family history of alcoholism Sibling Acute myocardial infarction Heart disease Sibling Brain aneurysm Daughter Bowel perforation July 2020 sounds like it may have been a bowel perforation related to hernia and possibly some diabetic problems.. Daughter Heart disease age 35 of heart attack Acute myocardial infarction Daughter COVID-19 Cyst of breast Social History Social History (Updated 04/29/24 @ 17:18 by Alba Jamil PA-C) Social History: Surrogate medical decision maker: Toshia Bliss, daughter. Code status: Modified code, no intubation. Smoking status: Never smoker Second hand tobacco smoke exposure: Yes Alcohol intak
[2024-04-29] MEDS: PANTOPRAZOLE 40 MG TABLET PO (17:44)
[2024-04-29] MEDS: SOTALOL HCL 80 MG TABLET PO (17:44)
[2024-04-29] MEDS: APIXABAN 5 MG TABLET BY MOUTH (17:44)
[2024-04-29] MEDS: SOTALOL HCL 40 MG TABLET PO (19:02)
[2024-04-29] MEDS: MELATONIN 3 MG TABLET PO (21:13)
[2024-04-29] MEDS: ALPRAZolam (*CRX) 0.5 MG TABLET PO (21:13)
[2024-04-30] VITALS (8 sets, daily range): BP systolic 151; BP diastolic 49; PULSE 46–58; RESP 20; TEMP 36.5; O2SAT 97–99
[2024-04-30 06:49] LABS: Anion Gap 9 mmol/L (4-12); Blood Urea Nitrogen 15 mg/dL (7-17); Calcium 9.2 mg/dL (8.4-10.2); Carbon Dioxide 27 mmol/L (22-30); Chloride 99 mmol/L (98-107); Estimated Glomerular Filt Rate 36; Glucose 122 mg/dL (65-110); Magnesium 2.1 mg/dL (1.6-2.3); Potassium 3.5 mmol/L (3.4-5.0); Sodium 135 mmol/L (137-145)
[2024-04-30] MEDS: APIXABAN 5 MG TABLET BY MOUTH (09:07)
[2024-04-30] MEDS: FUROSEMIDE 20 MG TABLET PO (09:07)
[2024-04-30] MEDS: PANTOPRAZOLE 40 MG TABLET PO (09:07)
[2024-04-30] MEDS: LOSARTAN POTASSIUM 100 MG TABLET PO (09:08)
[2024-04-30] MEDS: ASPIRIN 81 MG ENTERIC TABLET PO (09:08)
[2024-04-30] MEDS: LOVASTATIN 20 MG TABLET PO (09:09)
[2024-04-30] MEDS: ALPRAZolam (*CRX) 0.5 MG TABLET PO (09:15)
[2024-04-30] MEDS: SOTALOL HCL 40 MG, SOTALOL HCL 80 MG 120 MG PO (09:18)
--- NOTE | 2024-04-30 09:25 | PM.CNCAR ---
Assessment and Plan Assessment and plan (1) Atrial fibrillation with rapid ventricular response: Code(s): I48.91 - Unspecified atrial fibrillation Status: Acute Assessment and Plan: Converted to sinus rhythm and has maintained sinus rhythm. Continue Sotalol 120mg BID. Will not add another agent at this time as her heart rates while in sinus rhythm is in the 50s. Will arrange close outpatient follow up with Dr. Velasco. (2) Hypertension: Code(s): I10 - Essential (primary) hypertension Status: Acute Assessment and Plan: Stable, continue home antihypertensive regimen. Plan Okay to discharge home from a cardiology standpoint. Will arrange outpatient follow up. Recommendations and plan discussed with Hospitalist. History of Present Illness History of Present Illness Consult date/time: 04/30/24 09:25 Requesting physician: Alba Jamil PA-C Consult reason: atrial fibrillation Reason For Visit: acute heart failure exacerbation Narrative: We are consulted for atrial fibrillation with RVR. This is an 84 year old female with paroxysmal atrial fibrillation who follows with Dr. Velasco. Presented to [facility] on 04/28 with atrial fibrillation with RVR. She received a dose of Diltiazem which improved her heart rate to the 60s to 80s. She was discharged home from the ER and instructed to follow up with Dr. Velasco. She represented again to the ED on 04/29 with AFIB. She had some lower extremity edema and was given a dose of IV Lasix 20mg once daily. She is feeling well this morning. Converted to sinus rhythm last night and is maintaining sinus rhythm. Review of Systems Review of Systems: All systems reviewed & are unremarkable except as noted in HPI and below (HPI) [facility] Past Medical History Medical History Anxiety Aortic valve regurgitation Moderate by echocardiogram in October 2018. Followed by Dr. Velasco. Arthritis Benzodiazepine dependence Bronchiectasis Prior imaging demonstrated bronchiectasis in bilateral lower lobes with chronic scarring. Chronic midline low back pain with sciatica Dementia Reported by daughter, however the patient disputes this. Depression Diverticulitis Gastroesophageal reflux disease Hyperlipidemia Hypertension Nausea Non-small cell carcinoma of lung Obstructive sleep apnea Paroxysmal atrial fibrillation She has declined anticoagulation and antiarrhythmics previously but is now on metoprolol daily. She is followed by Dr. Velasco. Surgical History Surgical History History of appendectomy History of cardiac catheterization No known intervention. History of cataract extraction History of cholecystectomy History of hysterectomy History of tooth extraction History of tubal ligation Family History Family History Father Acute myocardial infarction Family history of alcoholism Gout Tobacco abuse Mother Family history of alcoholism Sibling Acute myocardial infarction Heart disease Sibling Brain aneurysm Daughter Bowel perforation July 2020 sounds like it may have been a bowel perforation related to hernia and possibly some diabetic problems.. Daughter Heart disease age 35 of heart attack Acute myocardial infarction Daughter COVID-19 Cyst of breast Social History Social History Social History: Surrogate medical decision maker: Toshia Bliss, daughter. Code status: Modified code, no intubation. Smoking status: Never smoker Second hand tobacco smoke exposure: Yes Alcohol intake: never Substance use: never Substance use type: does not use Do You Feel Safe in your Home?: Yes Lack of Transportation: No Lack of Food: Never True Curr
--- NOTE | 2024-04-30 10:10 | PM.DS ---
DS: Admitting Diagnosis Discharge Date 04/30/24 Admitting Diagnosis Atrial Fibrillation with RVR DS: Discharge Diagnosis Discharge Diagnosis (1) Atrial fibrillation with rapid ventricular response: Code(s): I48.91 - Unspecified atrial fibrillation Status: Resolved Assessment and Plan: Cardiac consult Patient has been cleared by Cardiology and she was converted and heart rate is controlled 50s. She should continue her home dose of sotalol. She should outpatient follow-up with Dr. Velasco. (2) Heart palpitations: Code(s): R00.2 - Palpitations Status: Inactive Assessment and Plan: Soup I (3) Chronic kidney disease: Code(s): N18.9 - Chronic kidney disease, unspecified Status: Chronic Assessment and Plan: Chronic appears to be baseline. (4) Hypertension: Code(s): I10 - Essential (primary) hypertension Status: Chronic Assessment and Plan: For cardiology stable in no new medications was meds as needed. (5) Hyperglycemia: Code(s): R73.9 - Hyperglycemia, unspecified Status: Acute Assessment and Plan: Suggest follow up with primary care provider. Heart healthy, low carbohydrate diet. A1c pending, previous A1cs have run in the 5s. DS: Summary Hospital Course Reason for hospitalization: Atrial fibrillation with rapid ventricular response Hospital Course: This is an 84-year-old female with paroxysmal atrial fibrillation on chronic anticoagulation, hypertension, hyperlipidemia, chronic kidney disease stage 3, gastroesophageal reflux disease, anxiety, and non-small cell lung carcinoma status post radiation who presented to the emergency department via private vehicle for evaluation of weakness and shortness of breath. She reports several days of intermittent palpitations or shortness of breath that she likened to her previous episodes of AFib with RVR. She had been seen previously in the emergency room earlier this week, was treated Cardizem and discharged back to home. As her symptoms recurred she presented to the emergency room again. Upon arrival to the emergency room she was again found to be in atrial fibrillation with RVR but a HeartMate maximum of 111. She was admitted to hospital for assessment cardiology evaluation. The time of admission patient denied any palpitations, chest pain, dyspnea, nausea vomiting, diarrhea. In the ED: She is in atrial fibrillation with a heart rate as high as 111. Blood pressure is an SpO2 are stable. Labs were significant for a stable creatinine, glucose 170, proBNP of 2740. She tested negative for influenza, RSV, and COVID. Chest x-ray showed stable right upper lobe airspace opacity, compatible with post radiation changes but no acute abnormalities. EKG showed atrial fibrillation with a rate of [address] deviations in I and V4-6. She was given furosemide 20 mg IV x1 and is being admitted for closer monitoring. Patient has been evaluated by Cardiology with plans to discharge. He the recommendations are to continue sotalol 120 mg b.i.d. and add another agent at this time had heart rates is back in sinus rhythm in the 50s. She is to follow up with primary care provider as well as Dr. Velasco. Status at Discharge Cognitive/behavioral status at discharge: At baseline Functional status at discharge: uses cane/walker Overall status at discharge: patient is back to baseline Time Spent with Patient Time attestation: Total time spent providing and/or coordinating discharge services: Time spent: Greater than 30 minutes Specific discharge activities: Medications, discharge instructions and follow-up Exam Narrative: General: Well-developed, nontoxic-appearing female sitting up in bed. Weight: 60.5 kg. BMI: 30.5. HEENT: PERRL, EOMI. Sclera anicteric. Slightly hard of hearing. Mild periorbital edema. Oral mucosa moist. Oropharynx clear. Neck: Supple. Respiratory: Lungs are clear to auscultation bila
[2024-04-30 13:54] LABS: Free T4 Free Thyroxine Reflex 1.18 ng/dL (0.78-2.19)
[2024-04-30 22:20] LABS: Total Triiodothyronine (T3) 1.17 NG/ML (0.97-1.69)
== END 2024-04-30 15:05 | disposition home or self-care (01) ==
LOC: ANHED 13:11 → ANH2MED 16:04
PROVIDERS: Physician Assistant; Admitting Provider Internal Medicine; Emergency Provider Student in an Organized Health Care Education/Training Program; PCP Family Medicine; Visit Provider Nurse Practitioner Adult Health
DX: I48.91 Unspecified atrial fibrillation (principal); I12.9 Hypertensive chronic kidney disease with stage 1 through stage 4 chronic kidney disease, or unspecified chronic kidney disease; I50.9 Heart failure, unspecified; N18.9 Chronic kidney disease, unspecified; R53.1 Weakness; R06.02 Shortness of breath; R73.9 Hyperglycemia, unspecified; E78.5 Hyperlipidemia, unspecified; I35.1 Nonrheumatic aortic (valve) insufficiency; G47.33 Obstructive sleep apnea (adult) (pediatric); F41.9 Anxiety disorder, unspecified; F32.A Depression, unspecified; Z79.82 Long term (current) use of aspirin; Z79.51 Long term (current) use of inhaled steroids; Z79.01 Long term (current) use of anticoagulants; Z20.822 Contact with and (suspected) exposure to COVID-19
CPT/HCPCS: 36415; 71046; 80048; 80053; 81001; 83735; 83880; 84439; 84443; 84480; 85025; 87637; 93005; 96374; 99285; A9270; G0378; J1940

== ENCOUNTER 2024-05-01 10:18 | Outpatient (CLI) | payer MEDICARE, SELFPAY ==
--- NOTE | ~2024-05-01 | CT_ITS ---
Clinical Indication: Lung cancer CT Scan of the Chest with Contrast: Technique: Contiguous sections were acquired throughout the chest after intravenous administration of 75 cc of Omnipaque 350. Dose reduction technique was used on this scan by utilizing automated exposu re control and iterative reconstruction technique. The dose-length product (DLP) was 170.34 mGy-cm. COMPARISON: 10/30/2023 Findings: There is no evidence of any significant mediastinal, hilar or axillary lymphadenopathy. There is no f illing defect in the pulmonary arterial tree to suggest pulmonary embolus. There is no evidence of ao rtic dissection or aneurysm. There is no evidence of pleural or pericardial effusion. There is stable probable chronic atelectasis or other chronic posttreatment change with focal volume loss in the right upper lobe. No other pulmonary nodule seen. Images through the upper abdomen reveal no abnormalities. Impression: Stable chronic atelectasis and/or post therapy change in the right upper lobe. Reviewed, dictated and finalized at [facility]. Impression: Stable chronic atelectasis and/or post therapy change in the right upper lobe.
== END 2024-05-01 10:19 | disposition home or self-care (01) ==
PROVIDERS: PCP Family Medicine; Visit Provider Internal Medicine Hematology & Oncology
DX: C34.90 Malignant neoplasm of unspecified part of unspecified bronchus or lung (principal)
CPT/HCPCS: 71260; Q9967

== ENCOUNTER 2024-05-09 11:24 | Outpatient (CLI) | payer MEDICARE, SELFPAY ==
[2024-05-09 11:38] LABS: Basophils Absolute Auto 0.1 K/mm3 (0.0-0.1); Basophils Percent Auto 0.9 % (0.2-1.2); Eosinophils Absolute Auto 0.2 K/mm3 (0-0.3); Hematocrit 37.2 % (37.0-47.0); Hemoglobin 11.4 g/dL (12.0-15.0); Immature Granulocyte Absolute 0.03 K/mm3 (0.00-0.031); Immature Granulocyte Percent A 0.5 % (0-0.5); Lymphocytes Absolute Auto 1.51 K/mm3 (0.9-3.2); Lymphocytes Percent Auto 23.5 % (18.3-44.2); Mean Corpuscular HGB Conc 30.6 g/dl (32-36); Mean Corpuscular Hemoglobin 27.3 pg (26-34); Mean Platelet Volume 9.6 fl (7.4-10.4); Monocytes Absolute Auto 0.3 K/mm3 (0.1-0.6); Neutrophils Absolute Auto 4.3 K/mm3 (1.3-6.7); Neutrophils Percent Auto 67.1 % (45.5-73.1); Platelet Count Result 211 k/mm3 (150-375); Red Blood Count 4.18 M/mm3 (4.2-5.4); White Blood Count 6.4 K/mm3 (4.5-10.0)
[2024-05-09 11:45] LABS: Blood Urea Nitrogen 10 mg/dL (8-26); Carbon Dioxide 25 mmol/L (22-30); Chloride 103 mmol/L (98-109); Estimated Glomerular Filt Rate 36; Glucose 138 mg/dL (70-105); Ionized Calcium (POC) 1.21 mmol/L (1.11-1.31); Potassium 3.9 mmol/L (3.5-4.9); Sodium 139 mmol/L (138-146)
[2024-05-09 12:59] LABS: Alanine Aminotransferase 12 U/L (6-35); Alkaline Phosphatase 78 U/L (38-126); Anion Gap 12 mmol/L (4-12); Aspartate Amino Transferase 22 U/L (14-36); Bilirubin,Total 0.5 mg/dL (0.2-1.3); Blood Urea Nitrogen 11 mg/dL (7-17); Carbon Dioxide 24 mmol/L (22-30); Chloride 101 mmol/L (98-107); Estimated Glomerular Filt Rate 39; Glucose 134 mg/dL (65-110); Sodium 137 mmol/L (137-145)
== END 2024-05-09 11:25 | disposition home or self-care (01) ==
LOC: ANHLAB 11:26
PROVIDERS: PCP Family Medicine; Visit Provider Internal Medicine Hematology & Oncology
DX: C34.90 Malignant neoplasm of unspecified part of unspecified bronchus or lung (principal)
CPT/HCPCS: 36415; 80047; 80053; 85025

== ENCOUNTER 2024-06-02 19:00 | Inpatient (IN) | payer MEDICARE, SELFPAY ==
[2024-06-02] VITALS (19 sets, daily range): BP systolic 115–181; BP diastolic 51–136; PULSE 70–126; RESP 14–24; TEMP 36.8; O2SAT 95–98
--- NOTE | ~2024-06-02 | XR_ITS ---
EXAMINATION: XR chest 1V portable Exam Date/Time: 06/02/2024 19:24 CDT HISTORY: Chest pain, palpitations Comparison: 04/29/2024. RESULT: Lines, tubes, and devices: Cholecystomy clips. Lungs and pleura: Stable right upper lobe pulmonary opacity, compatible with post radiation change. Lungs otherwise clear. Cardiomediastinal silhouette: Stable. Other: No acute osseous or upper abdominal finding. IMPRESSION: No acute cardiopulmonary process. Reviewed, dictated and finalized at location K.
--- NOTE | ~2024-06-02 | XR_ITS ---
EXAM: XR foot RT min 3V DATE: 06/02/2024 20:57 HISTORY: pain . COMPARISON: 12/30/2019, 12/23/2014. FINDINGS: Osteopenia. No fracture or dislocation. No lytic or blastic lesion. Mild scattered degener ative change. Achilles and plantar enthesopathy. No erosion or periosteal change. Soft tissues within normal limits. IMPRESSION: No acute osseous finding in the right foot. Reviewed, dictated and finalized at location K.
--- NOTE | 2024-06-02 19:07 | ECG_ITS ---
Test Date: 2024-06-02 19:18:26 Measurements Intervals [place] Rate: 119 P: 0 RI: 0 QRS: -23 QRSD: 87 T: 108 QT: 346 QTc: 487 Interpretive Statements ATRIAL FIBRILLATION WITH RAPID VENTRICULAR RESPONSE BORDERLINE LEFT AXIS DEVIATION [QRS AXIS < -20] VOLTAGE CRITERIA FOR LVH [MEETS CRITERIA IN ONE OF: R(aVL), S(V1), R(V5), R(V5/V6)+S(V1)] ST DEVIATION AND MODERATE T-WAVE ABNORMALITY, CONSIDER LATERAL ISCHEMIA [-0.1+ mV T WAVE IN I/aVL/V5/V6] Compared to ECG 04/29/2024 11:56:09 Possible ischemia now present Electronically Signed On 06-02-2024 21:12:40 CDT by Carlito Larsen M.D.
--- NOTE | 2024-06-02 19:42 | ED_ITS ---
HPI - General Adult General Chief complaint: Arrhythmia/Palpitations Stated complaint: afib Time Seen by Provider: 06/02/24 19:30 History of Present Illness HPI narrative: Patient 84-year-old female who presents emergency department with chief complaint of atrial fibrillation. Patient reports she has prior history of AFib takes sotalol 120 mg twice daily the patient states that today she was taking a shower and noticed that her heart went into AFib the patient states she felt a little lightheaded at that point and felt as though her heart was beating fast. Patient states that she still feels her heart beating fast and irregular. Patient reports he has not missed any of her medications Related Data Home Medications Medication Instructions Recorded Confirmed melatonin 3 mg tablet 3 mg PO HS 10/31/21 04/29/24 sotalol 80 mg tablet 120 mg PO BID 04/18/22 04/29/24 Allergies Allergy/AdvReac Type Severity Reaction Status Date / Time Penicillins Allergy Severe Hives Verified 06/02/24 19:03 gabapentin Allergy Intermediate Chest Pain Verified 06/02/24 19:03 nitrofurantoin Allergy Intermediate Hives Verified 06/02/24 19:03 [From Macrobid] Quinolones Allergy Mild Unknown Verified 06/02/24 19:03 cefprozil Allergy Unknown Unknown Verified 06/02/24 19:03 cefuroxime Allergy Unknown Unknown Verified 06/02/24 19:03 Cephalosporins Allergy Unknown Unknown Verified 06/02/24 19:03 gatifloxacin Allergy Unknown Unknown Verified 06/02/24 19:03 metronidazole Allergy Unknown Unknown Verified 06/02/24 19:03 fluoxetine [From Prozac] AdvReac Mild Dizziness Verified 06/02/24 19:03 erythromycin base AdvReac Unknown Stomach Verified 06/02/24 19:03 cramps loratadine [From Claritin] AdvReac Unknown Jittery Verified 06/02/24 19:03 Review of Systems Review of Systems: A 10 system review of systems was completed on the patient and is negative except for what is stated in the HPI. Nursing and ancillary documentation was reviewed. [facility] Past Medical History Medical History Anxiety Aortic valve regurgitation Moderate by echocardiogram in October 2018. Followed by Dr. Velasco. Arthritis Benzodiazepine dependence Bronchiectasis Prior imaging demonstrated bronchiectasis in bilateral lower lobes with chronic scarring. Chronic midline low back pain with sciatica Dementia Reported by daughter, however the patient disputes this. Depression Diverticulitis Gastroesophageal reflux disease Hyperlipidemia Hypertension Nausea Non-small cell carcinoma of lung Obstructive sleep apnea Paroxysmal atrial fibrillation She has declined anticoagulation and antiarrhythmics previously but is now on metoprolol daily. She is followed by Dr. Velasco. Surgical History Surgical History History of appendectomy History of cardiac catheterization No known intervention. History of cataract extraction History of cholecystectomy History of hysterectomy History of tooth extraction History of tubal ligation Family History Family History Father Acute myocardial infarction Family history of alcoholism Gout Tobacco abuse Mother Family history of alcoholism Sibling Acute myocardial infarction Heart disease Sibling Brain aneurysm Daughter Bowel perforation July 2020 sounds like it may have been a bowel perforation related to hernia and possibly some diabetic problems.. Daughter Heart disease age 35 of heart attack Acute myocardial infarction Daughter COVID-19 Cyst of breast Social History Social History Social History: Surrogate medical decision maker: Toshia Bliss, daughter. Code status: Modified code, no intubation. Smoking status: Never smoker Second hand tobacco smoke exposure: Yes Alcohol intake: never Substance use: never Substance use type: does not use Do You Feel Safe in your Home?: Yes Lack of Transportation: No Lack of Food: Never True Current Housing: I Have Housing Concerned About Future Housing: No Difficulty Paying Gas/Electric Bills: No Difficulty Paying for Meds: No Currently Unemployed: No Education: High School Diploma/GED Difficulty w/ Childcare or Family Care: No Additional living arrangements comments: . Had 3 daughters, 1 who from an [place] at age 30 and other who passed from complications of diabetes. 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 Spiritual care concerns: No Agree to blood products: Yes Exam Narrative: GENERAL: Well-appearing, well-nourished, and in no acute distress. HEAD: Normocephalic, atraumatic. EYES: PERRLA and EOMI. ENT: Nares clear, no rhinorrhea or epistaxis. Mucous membranes moist. NECK: Supple. CHEST: Clear to auscultation. No respiratory distress. HEART: irregular tachycardic rate and irregular rhythm. No murmur heard. Normal peripheral pulses. ABDOMEN: Soft, nontender, nondistended, normal active bowel sounds. EXTREMITIES: Normal range of motion. No edema. SKIN: Warm, dry, no rash. NEURO: No focal deficits. Alert and oriented x3. PSYCH: Normal mood and affect. Course Vital Signs Vital signs: Vital Signs Temperature 36.8 C 06/02/24 19:11 Pulse Rate 97 06/02/24 19:11 Respiratory Rate 17 06/02/24 19:11 Blood Pressure 146/92 H 06/02/24 19:11 Pulse Oximetry 98 06/02/24 19:11 Temperature 36.8 C 06/02/24 19:11 Pulse Rate 109 H 06/02/24 20:17 Respiratory Rate 17 06/02/24 19:11 Blood Pressure 137/108 H 06/02/24 20:17 Pulse Oximetry 98 06/02/24 19:11 Medical Decision Making [facility] Narrative Medical decision making narrative: Differential diagnosis includes electrolyte abnormality, ACS, atrial fibrillation with response EKG showed AFib with rate of 119 head the patient was going up into the 130s during interaction. The patient is given a Cardizem bolus and currently is on a Cardizem drip Laboratory studies were obtained showed a potassium of 4.1 magnesium was 2.2 BNP was 236 troponin was less than 0.012 The patient has not converted yet and sinus is still on 5 milligram/hours drip. The case will be discussed with the hospitalist for admission for observation Vital Signs Vital Signs: Vital Signs Temperature 36.8 C 06/02/24 19:11 Pulse Rate 97 06/02/24 19:11 Respiratory Rate 17 06/02/24 19:11 Blood Pressure 146/92 H 06/02/24 19:11 Pulse Oximetry 98 06/02/24 19:11 Temperature 36.8 C 06/02/24 19:11 Pulse Rate 109 H 06/02/24 20:17 Respiratory Rate 17 06/02/24 19:11 Blood Pressure 137/108 H 06/02/24 20:17 Pulse Oximetry 98 06/02/24 19:11 Lab Data 06/02/24 19:45 06/02/24 19:45 Labs: Lab Results 06/02/24 06/02/24 06/02/24 Range/Units 19:45 19:45 19:45 WBC 7.9 (4.5-10.0) K/mm3 RBC 4.59 (4.2-5.4) M/mm3 Hgb 12.6 (12.0-15.0) g/dL Hct 40.7 (37.0-47.0) % MCV 88.7 (80-100) fl MCH 27.5 (26-34) pg MCHC 31.0 L (32-36) g/dl RDW 15.0 H (11.5-14.5) % Plt Count 224 (150-375) k/mm3 MPV 10.3 (7.4-10.4) fl Immature Gran % (Auto) 0.4 (0-0.5) % Neut % (Auto) 61.7 (45.5-73.1) % Lymph % (Auto) 27.4 (18.3-44.2) % [place] % (Auto) 7.6 (2.6-8.5) % Eos % (Auto) 2.3 (0-4.4) % Baso % (Auto) 0.6 (0.2-1.2) % Lymph # (Auto) 2.17 (0.9-3.2) K/mm3 [place] # (Auto) 0.6 (0.1-0.6) K/mm3 Eos # (Auto) 0.2 (0-0.3) K/mm3 Baso # (Auto) 0.1 (0.0-0.1) K/mm3 Abs Immat Gran (auto) 0.03 (0.00-0.031) K/mm3 Absolute Neuts (auto) 4.9 (1.3-6.7) K/mm3 Absolute Nucleated RBC 0.000 (0.0-0.012) K/mm3 Nucleated RBC % 0.0 (0.0-0.2) % PT 17.0 H (11.1-14.7) Seconds INR 1.4 APTT 30.5 (22.3-36.8) Seconds Sodium Cancelled 138 Potassium Cancelled 4.1 Chloride Cancelled Carbon Dioxide Anion Gap BUN Creatinine Estim Creat Clear Calc Estimated GFR Glucose Calcium Magnesium (1.6-2.3) mg/dL Total Bilirubin AST ALT Alkaline Phosphatase Troponin I (0.000-0.034) ng/mL NT-Pro-B Natriuret Pep Total Protein Albumin Lipase 06/02/24 06/02/24 06/02/24 Range/Units 19:45 19:45 19:45 WBC (4.5-10.0) K/mm3 RBC (4.2-5.4) M/mm3 Hgb (12.0-15.0) g/dL Hct (37.0-47.0) % MCV (80-100) fl MCH (26-34) pg MCHC (32-36) g/dl RDW (11.5-14.5) % Plt Count (150-375) k/mm3 MPV (7.4-10.4) fl Immature Gran % (Auto) (0-0.5) % Neut % (Auto) (45.5-73.1) % Lymph % (Auto) (18.3-44.2) % [place] % (Auto) (2.6-8.5) % Eos % (Auto) (0-4.4) % Baso % (Auto) (0.2-1.2) % Lymph # (Auto) (0.9-3.2) K/mm3 [place] # (Auto) (0.1-0.6) K/mm3 Eos # (Auto) (0-0.3) K/mm3 Baso # (Auto) (0.0-0.1) K/mm3 Abs Immat Gran (auto) (0.00-0.031) K/mm3 Absolute Neuts (auto) (1.3-6.7) K/mm3 Absolute Nucleated RBC (0.0-0.012) K/mm3 Nucleated RBC % (0.0-0.2) % PT (11.1-14.7) Seconds INR APTT (22.3-36.8) Seconds Sodium Potassium Chloride 102 Carbon Dioxide Cancelled 27 Anion Gap Cancelled 9 BUN Cancelled Creatinine Estim Creat Clear Calc Estimated GFR Glucose Calcium Magnesium (1.6-2.3) mg/dL Total Bilirubin AST ALT Alkaline Phosphatase Troponin I (0.000-0.034) ng/mL NT-Pro-B Natriuret Pep Total Protein Albumin Lipase 06/02/24 06/02/24 06/02/24 Range/Units 19:45 19:45 19:45 WBC (4.5-10.0) K/mm3 RBC (4.2-5.4) M/mm3 Hgb (12.0-15.0) g/dL Hct (37.0-47.0) % MCV (80-100) fl MCH (26-34) pg MCHC (32-36) g/dl RDW (11.5-14.5) % Plt Count (150-375) k/mm3 MPV (7.4-10.4) fl Immature Gran % (Auto) (0-0.5) % Neut % (Auto) (45.5-73.1) % Lymph % (Auto) (18.3-44.2) % [place] % (Auto) (2.6-8.5) % Eos % (Auto) (0-4.4) % Baso % (Auto) (0.2-1.2) % Lymph # (Auto) (0.9-3.2) K/mm3 [place] # (Auto) (0.1-0.6) K/mm3 Eos # (Auto) (0-0.3) K/mm3 Baso # (Auto) (0.0-0.1) K/mm3 Abs Immat Gran (auto) (0.00-0.031) K/mm3 Absolute Neuts (auto) (1.3-6.7) K/mm3 Absolute Nucleated RBC (0.0-0.012) K/mm3 Nucleated RBC % (0.0-0.2) % PT (11.1-14.7) Seconds INR APTT (22.3-36.8) Seconds Sodium Potassium Chloride Carbon Dioxide Anion Gap BUN 13 Creatinine Cancelled 1.30 H Estim Creat Clear Calc Cancelled Not Reportable Estimated GFR Cancelled Glucose Calcium Magnesium (1.6-2.3) mg/dL Total Bilirubin AST ALT Alkaline Phosphatase Troponin I (0.000-0.034) ng/mL NT-Pro-B Natriuret Pep Total Protein Albumin Lipase 06/02/24 06/02/24 06/02/24 Range/Units 19:45 19:45 19:45 WBC (4.5-10.0) K/mm3 RBC (4.2-5.4) M/mm3 Hgb (12.0-15.0) g/dL Hct (37.0-47.0) % MCV (80-100) fl MCH (26-34) pg MCHC (32-36) g/dl RDW (11.5-14.5) % Plt Count (150-375) k/mm3 MPV (7.4-10.4) fl Immature Gran % (Auto) (0-0.5) % Neut % (Auto) (45.5-73.1) % Lymph % (Auto) (18.3-44.2) % [place] % (Auto) (2.6-8.5) % Eos % (Auto) (0-4.4) % Baso % (Auto) (0.2-1.2) % Lymph # (Auto) (0.9-3.2) K/mm3 [place] # (Auto) (0.1-0.6) K/mm3 Eos # (Auto) (0-0.3) K/mm3 Baso # (Auto) (0.0-0.1) K/mm3 Abs Immat Gran (auto) (0.00-0.031) K/mm3 Absolute Neuts (auto) (1.3-6.7) K/mm3 Absolute Nucleated RBC (0.0-0.012) K/mm3 Nucleated RBC % (0.0-0.2) % PT (11.1-14.7) Seconds INR APTT (22.3-36.8) Seconds Sodium Potassium Chloride Carbon Dioxide Anion Gap BUN Creatinine Estim Creat Clear Calc Estimated GFR 39 L Glucose Cancelled 138 H Calcium Cancelled 9.5 Magnesium 2.2 (1.6-2.3) mg/dL Total Bilirubin Cancelled AST ALT Alkaline Phosphatase Troponin I (0.000-0.034) ng/mL NT-Pro-B Natriuret Pep Total Protein Albumin Lipase 06/02/24 06/02/24 06/02/24 Range/Units 19:45 19:45 19:45 WBC (4.5-10.0) K/mm3 RBC (4.2-5.4) M/mm3 Hgb (12.0-15.0) g/dL Hct (37.0-47.0) % MCV (80-100) fl MCH (26-34) pg MCHC (32-36) g/dl RDW (11.5-14.5) % Plt Count (150-375) k/mm3 MPV (7.4-10.4) fl Immature Gran % (Auto) (0-0.5) % Neut % (Auto) (45.5-73.1) % Lymph % (Auto) (18.3-44.2) % [place] % (Auto) (2.6-8.5) % Eos % (Auto) (0-4.4) % Baso % (Auto) (0.2-1.2) % Lymph # (Auto) (0.9-3.2) K/mm3 [place] # (Auto) (0.1-0.6) K/mm3 Eos # (Auto) (0-0.3) K/mm3 Baso # (Auto) (0.0-0.1) K/mm3 Abs Immat Gran (auto) (0.00-0.031) K/mm3 Absolute Neuts (auto) (1.3-6.7) K/mm3 Absolute Nucleated RBC (0.0-0.012) K/mm3 Nucleated RBC % (0.0-0.2) % PT (11.1-14.7) Seconds INR APTT (22.3-36.8) Seconds Sodium Potassium Chloride Carbon Dioxide Anion Gap BUN Creatinine Estim Creat Clear Calc Estimated GFR Glucose Calcium Magnesium (1.6-2.3) mg/dL Total Bilirubin 0.6 AST Cancelled 26 ALT Cancelled 13 Alkaline Phosphatase Cancelled Troponin I (0.000-0.034) ng/mL NT-Pro-B Natriuret Pep Total Protein Albumin Lipase 06/02/24 06/02/24 06/02/24 Range/Units 19:45 19:45 19:45 WBC (4.5-10.0) K/mm3 RBC (4.2-5.4) M/mm3 Hgb (12.0-15.0) g/dL Hct (37.0-47.0) % MCV (80-100) fl MCH (26-34) pg MCHC (32-36) g/dl RDW (11.5-14.5) % Plt Count (150-375) k/mm3 MPV (7.4-10.4) fl Immature Gran % (Auto) (0-0.5) % Neut % (Auto) (45.5-73.1) % Lymph % (Auto) (18.3-44.2) % [place] % (Auto) (2.6-8.5) % Eos % (Auto) (0-4.4) % Baso % (Auto) (0.2-1.2) % Lymph # (Auto) (0.9-3.2) K/mm3 [place] # (Auto) (0.1-0.6) K/mm3 Eos # (Auto) (0-0.3) K/mm3 Baso # (Auto) (0.0-0.1) K/mm3 Abs Immat Gran (auto) (0.00-0.031) K/mm3 Absolute Neuts (auto) (1.3-6.7) K/mm3 Absolute Nucleated RBC (0.0-0.012) K/mm3 Nucleated RBC % (0.0-0.2) % PT (11.1-14.7) Seconds INR APTT (22.3-36.8) Seconds Sodium Potassium Chloride Carbon Dioxide Anion Gap BUN Creatinine Estim Creat Clear Calc Estimated GFR Glucose Calcium Magnesium (1.6-2.3) mg/dL Total Bilirubin AST ALT Alkaline Phosphatase 89 Troponin I < 0.012 (0.000-0.034) ng/mL NT-Pro-B Natriuret Pep Cancelled 236 H Total Protein Cancelled 8.0 Albumin Cancelled Lipase 06/02/24 06/02/24 Range/Units 19:45 19:45 WBC (4.5-10.0) K/mm3 RBC (4.2-5.4) M/mm3 Hgb (12.0-15.0) g/dL Hct (37.0-47.0) % MCV (80-100) fl MCH (26-34) pg MCHC (32-36) g/dl RDW (11.5-14.5) % Plt Count (150-375) k/mm3 MPV (7.4-10.4) fl Immature Gran % (Auto) (0-0.5) % Neut % (Auto) (45.5-73.1) % Lymph % (Auto) (18.3-44.2) % [place] % (Auto) (2.6-8.5) % Eos % (Auto) (0-4.4) % Baso % (Auto) (0.2-1.2) % Lymph # (Auto) (0.9-3.2) K/mm3 [place] # (Auto) (0.1-0.6) K/mm3 Eos # (Auto) (0-0.3) K/mm3 Baso # (Auto) (0.0-0.1) K/mm3 Abs Immat Gran (auto) (0.00-0.031) K/mm3 Absolute Neuts (auto) (1.3-6.7) K/mm3 Absolute Nucleated RBC (0.0-0.012) K/mm3 Nucleated RBC % (0.0-0.2) % PT (11.1-14.7) Seconds INR APTT (22.3-36.8) Seconds Sodium Potassium Chloride Carbon Dioxide Anion Gap BUN Creatinine Estim Creat Clear Calc Estimated GFR Glucose Calcium Magnesium (1.6-2.3) mg/dL Total Bilirubin AST ALT Alkaline Phosphatase Troponin I (0.000-0.034) ng/mL NT-Pro-B Natriuret Pep Total Protein Albumin 4.6 Lipase Cancelled 109 Critical Care Time Critical Care Time Critical Care Time: Yes Total Critical Care Time: 30 Discharge Plan Discharge Clinical Impression: Atrial fibrillation with rapid ventricular response Patient Disposition: Still a Patient Condition: Stable Prescriptions: No Action sotalol 80 mg tablet 120 mg PO BID tramadol 50 mg tablet 50 mg PO Q6H PRN (Reason: pain) Qty: 30 0RF melatonin 3 mg Tablet 3 mg PO HS aspirin [Adult Aspirin Regimen] 81 mg tablet,delayed release (DR/EC) 81 mg PO DAILY Qty: 90 0RF diclofenac sodium 1 % gel See Rx Instructions .ROUTE .COMPLEX Qty: 500 2RF Dose Instruction: APPLY 4 GRAMS TOPICALLY TO SINGLE KNEE, ANKLE, AND FOOT (INCLUDES SOLE/TOES/TOP OF FOOT) 4 TIMES A DAY Rx Instructions: APPLY 4 GRAMS TOPICALLY TO SINGLE KNEE, ANKLE, AND FOOT (INCLUDES SOLE/TOES/TOP OF FOOT) 4 TIMES A DAY albuterol sulfate 90 mcg/actuation HFA aerosol inhaler 2 inh INHALATION Q4H PRN (Reason: shortness of breath or wheezing) Qty: 6.7 11RF omeprazole 20 mg capsule,delayed release(DR/EC) 20 mg PO BID Qty: 180 1RF furosemide 20 mg tablet 20 mg PO QAM Qty: 90 1RF losartan 100 mg tablet 100 mg PO DAILY Qty: 90 1RF Rx Instructions: TAKE 1 TABLET BY MOUTH EVERY DAY IN THE MORNING Eliquis 5 mg tablet See Rx Instructions .ROUTE .COMPLEX Qty: 60 2RF Dose Instruction: TAKE 1 TABLET BY MOUTH TWICE A DAY Rx Instructions: TAKE 1 TABLET BY MOUTH TWICE A DAY alprazolam 0.5 mg tablet 0.5 mg PO TID PRN (Reason: anxiety) 30 Days Qty: 75 1RF Rx Instructions: hold until 01/12 lovastatin 20 mg tablet See Rx Instructions .ROUTE .COMPLEX Qty: 90 2RF Dose Instruction: TAKE 1 TABLET BY MOUTH EVERY DAY Rx Instructions: TAKE 1 TABLET BY MOUTH EVERY DAY Follow-up/Referrals: Ulises Guido MD [Primary Care Provider] - Time of Disposition: 21:35
[2024-06-02 19:52] LABS: Basophils Absolute Auto 0.1 K/mm3 (0.0-0.1); Basophils Percent Auto 0.6 % (0.2-1.2); Eosinophils Absolute Auto 0.2 K/mm3 (0-0.3); Eosinophils Percent Auto 2.3 % (0-4.4); Hematocrit 40.7 % (37.0-47.0); Hemoglobin 12.6 g/dL (12.0-15.0); Immature Granulocyte Absolute 0.03 K/mm3 (0.00-0.031); Immature Granulocyte Percent A 0.4 % (0-0.5); Lymphocytes Absolute Auto 2.17 K/mm3 (0.9-3.2); Lymphocytes Percent Auto 27.4 % (18.3-44.2); Mean Corpuscular Hemoglobin 27.5 pg (26-34); Mean Corpuscular Volume 88.7 fl (80-100); Mean Platelet Volume 10.3 fl (7.4-10.4); Monocytes Absolute Auto 0.6 K/mm3 (0.1-0.6); Monocytes Percent Auto 7.6 % (2.6-8.5); Neutrophils Absolute Auto 4.9 K/mm3 (1.3-6.7); Neutrophils Percent Auto 61.7 % (45.5-73.1); Platelet Count Result 224 k/mm3 (150-375); Red Blood Count 4.59 M/mm3 (4.2-5.4); White Blood Count 7.9 K/mm3 (4.5-10.0)
[2024-06-02 20:02] LABS: Alanine Aminotransferase 13 U/L (6-35); Albumin Level 4.6 g/dL (3.5-5.1); Alkaline Phosphatase 89 U/L (38-126); Anion Gap 9 mmol/L (4-12); Aspartate Amino Transferase 26 U/L (14-36); Bilirubin,Total 0.6 mg/dL (0.2-1.3); Blood Urea Nitrogen 13 mg/dL (7-17); Calcium 9.5 mg/dL (8.4-10.2); Carbon Dioxide 27 mmol/L (22-30); Chloride 102 mmol/L (98-107); Estimated Glomerular Filt Rate 39; Glucose 138 mg/dL (65-110); Lipase 109 U/L (23-300); Magnesium 2.2 mg/dL (1.6-2.3); Potassium 4.1 mmol/L (3.4-5.0); Sodium 138 mmol/L (137-145)
[2024-06-02 20:03] LABS: INR 1.4
[2024-06-02 20:04] LABS: Partial Thromboplastin Time 30.5 Seconds (22.3-36.8)
[2024-06-02 20:14] LABS: NT Pro B Type Natriuretic Pept 236 pg/mL (19.9-100); Troponin I < 0.012 ng/mL (0.000-0.034)
[2024-06-02] MEDS: dilTIAZem HCl INJ 25 MG/5 ML VIAL 10 MG IV PUSH (20:16)
[2024-06-02] MEDS: dilTIAZem 100 MG/100 ML 100 MG/100 ML BAG IV CONT (20:17)
--- NOTE | 2024-06-02 22:20 | PM.IMHP ---
H&P: HPI History of Present Illness Date/Time: 06/02/24 22:20 Chief Complaint: PALPITATIONS Narrative: THIS IS AN 84-YEAR-OLD FEMALE WITH PAST MEDICAL HISTORY SIGNIFICANT FOR ATRIAL FIBRILLATION, RATE CONTROLLED AND ANTICOAGULATED, CHRONIC KIDNEY DISEASE, DYSLIPIDEMIA, HYPERTENSION. PATIENT PRESENTS TO THE EMERGENCY ROOM DUE TO PALPITATIONS, DIZZINESS, LIGHTHEADEDNESS WITH ONSET IN THE MORNING LASTING MOST OF THE DAY. PATIENT TOOK A SHOWER ARE HOPING THAT HE WILL GO AWAY HOWEVER IT PERSISTED DECIDED TO PRESENT TO THE EMERGENCY ROOM. DENIES ANY FEVERS, RIGORS, CHILLS, COUGH, LEG SWELLING, SHORTNESS OF BREATH, PND, ORTHOPNEA, NO NAUSEA NO VOMITING, NO CHEST PAIN. PRELIMINARY WORKUP WAS SIGNIFICANT FOR PATIENT WAS FOUND TO HAVE ATRIAL FIBRILLATION WITH RAPID VENTRICULAR RESPONSE. PATIENT HAS BEEN PLACED IN OBSERVATION FOR FURTHER EVALUATION MANAGEMENT AND TREATMENT. EXAMINATION: XR chest 1V portable Exam Date/Time: 06/02/2024 19:24 CDT HISTORY: Chest pain, palpitations Comparison: 04/29/2024. RESULT: Lines, tubes, and devices: Cholecystomy clips. Lungs and pleura: Stable right upper lobe pulmonary opacity, compatible with post radiation change. Lungs otherwise clear. Cardiomediastinal silhouette: Stable. Other: No acute osseous or upper abdominal finding. IMPRESSION: No acute cardiopulmonary process. Review of Systems Review of Systems: PALPITATIONS, LIGHTHEADEDNESS, DIZZINESS PMFSH Past Medical History Medical History Anxiety Aortic valve regurgitation Moderate by echocardiogram in October 2018. Followed by Dr. Velasco. Arthritis Benzodiazepine dependence Bronchiectasis Prior imaging demonstrated bronchiectasis in bilateral lower lobes with chronic scarring. Chronic midline low back pain with sciatica Dementia Reported by daughter, however the patient disputes this. Depression Diverticulitis Gastroesophageal reflux disease Hyperlipidemia Hypertension Nausea Non-small cell carcinoma of lung Obstructive sleep apnea Paroxysmal atrial fibrillation She has declined anticoagulation and antiarrhythmics previously but is now on metoprolol daily. She is followed by Dr. Velasco. Surgical History Surgical History History of appendectomy History of cardiac catheterization No known intervention. History of cataract extraction History of cholecystectomy History of hysterectomy History of tooth extraction History of tubal ligation Family History Family History Father Acute myocardial infarction Family history of alcoholism Gout Tobacco abuse Mother Family history of alcoholism Sibling Acute myocardial infarction Heart disease Sibling Brain aneurysm Daughter Bowel perforation July 2020 sounds like it may have been a bowel perforation related to hernia and possibly some diabetic problems.. Daughter Heart disease age 35 of heart attack Acute myocardial infarction Daughter COVID-19 Cyst of breast Social History Social History Social History: Surrogate medical decision maker: Toshia Bliss, daughter. Code status: Modified code, no intubation. Smoking status: Never smoker Second hand tobacco smoke exposure: Yes Alcohol intake: never Substance use: never Substance use type: does not use Do You Feel Safe in your Home?: Yes Lack of Transportation: No Lack of Food: Never True Current Housing: I Have Housing Concerned About Future Housing: No Difficulty Paying Gas/Electric Bills: No Difficulty Paying for Meds: No Currently Unemployed: No Education: High School Diploma/GED Difficulty w/ Childcare or Family Care: No Additional living arrangements comments: . Had 3 daughters, 1 who from an DC at age 30 and other who passed from complications of diabetes. 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 Spiritual care concerns: No Agree to blood products: Yes Meds Home Medications and Allergies Home Medications Medication Instructions Recorded Confirmed Type aspirin 81 mg tablet,delayed 81 mg PO DAILY #90 tabs 12/02/19 06/02/24 Rx release (Adult Aspirin Regimen) melatonin 3 mg tablet 3 mg PO HS PRN Insomnia 10/31/21 06/02/24 History sotalol 80 mg tablet 120 mg PO BID 04/18/22 06/02/24 History albuterol sulfate 90 mcg/actuation 2 inh inhalation Q4H PRN shortness 12/23/23 06/02/24 Rx aerosol inhaler of breath or wheezing #6.7 grams tramadol 50 mg tablet 50 mg PO Q6H PRN pain #30 tabs 03/01/24 06/02/24 Rx furosemide 20 mg tablet 20 mg PO QAM #90 tabs 03/22/24 06/02/24 Rx losartan 100 mg tablet 100 mg PO DAILY #90 tabs 03/25/24 06/02/24 Rx alprazolam 0.5 mg tablet 0.5 mg PO TID PRN anxiety 30 days 05/06/24 06/02/24 Rx #75 tabs apixaban 5 mg tablet (Eliquis) 5 mg PO BID 06/02/24 06/02/24 History diclofenac sodium 1 % topical gel 1 ea topical DAILY 06/02/24 06/02/24 History lovastatin 20 mg tablet 20 mg PO DAILY 06/02/24 06/02/24 History omeprazole 20 mg capsule,delayed 20 mg PO DAILY 06/02/24 06/02/24 History release Allergies Allergy/AdvReac Type Severity Reaction Status Date / Time Penicillins Allergy Severe Hives Verified 06/02/24 23:46 gabapentin Allergy Intermediate Chest Pain Verified 06/02/24 23:46 nitrofurantoin Allergy Intermediate Hives Verified 06/02/24 23:46 [From Macrobid] Quinolones Allergy Mild Unknown Verified 06/02/24 23:46 cefprozil Allergy Unknown Unknown Verified 06/02/24 23:46 cefuroxime Allergy Unknown Unknown Verified 06/02/24 23:46 Cephalosporins Allergy Unknown Unknown Verified 06/02/24 23:46 gatifloxacin Allergy Unknown Unknown Verified 06/02/24 23:46 metronidazole Allergy Unknown Unknown Verified 06/02/24 23:46 fluoxetine [From Prozac] AdvReac Mild Dizziness Verified 06/02/24 23:46 erythromycin base AdvReac Unknown Stomach Verified 06/02/24 23:46 cramps loratadine [From Claritin] AdvReac Unknown Jittery Verified 06/02/24 23:46 Vital Signs Vital Signs - 24 hr 06/02/24 19:11 06/02/24 20:17 Temperature 98.2 F Pulse Rate 97 109 H Respiratory Rate 17 Blood Pressure 146/92 H 137/108 H Pulse Oximetry 98 Exam Narrative: PATIENT IS SITTING IN STRETCHER Const: General: comfortable, no acute distress, well developed, alert, awake and average body habitus Nutritional Appearance: average body habitus Orientation/consciousness: patient oriented x3 Other: WELL-APPEARING HENMT: Head: normal to inspection, normocephalic and atraumatic Ears: hearing grossly normal bilaterally Face/Nose/Sinus: normal facial exam Face and sinus: normal facial exam Eyes: General: appearance normal, both eyes and all related structures Pupils: Equal, round and reactive pupils present EOM: EOMs intact bilaterally Neck: Neck: full ROM, no lymphadenopathy and no JVD Thyroid: thyroid normal Lymphatic: no lymphadenopathy noted Resp: Effort & Inspection: normal respiratory effort and able to speak in complete sentences Auscultation: clear to auscultation bilaterally Cardio: Jugular venous distension: no JVD Rate: regular rate Rhythm: abnormal rhythm irregularly irregular Heart sounds: S1 normal heart sound present and S2 normal heart sound present GI: GI Palp: Yes Soft to palpation and Yes No hepatosplenomegaly present : General: Yes deferred Skin: Rashes: no rashes Wounds: no wounds Neuro: General: patient oriented x3 and CN's II-XI intact bilaterally Cranial nerves: Yes CN's II-XII intact bilaterally and Yes Equal, round and reactive pupils present Cognition (Neuro): normal cognition Speech: normal speech Gait exam (Neuro): Unable to assess gait Motor exam (neuro): 5/5 motor strength present throughout Extrem: General: normal to inspection, full ROM, no joint enlargement and no pedal edema H&P: Results Labs Labs: Short CBC 06/02/24 Range/Units 19:45 WBC 7.9 (4.5-10.0) K/mm3 Hgb 12.6 (12.0-15.0) g/dL Hct 40.7 (37.0-47.0) % Plt Count 224 (150-375) k/mm3 BMP 06/02/24 06/02/24 06/02/24 19:45 19:45 19:45 Sodium Cancelled 138 Potassium Cancelled 4.1 Chloride Cancelled Carbon Dioxide BUN Creatinine Glucose Calcium 06/02/24 06/02/24 06/02/24 19:45 19:45 19:45 Sodium Potassium Chloride 102 Carbon Dioxide Cancelled 27 BUN Cancelled 13 Creatinine Cancelled Glucose Calcium 06/02/24 06/02/24 06/02/24 19:45 19:45 19:45 Sodium Potassium Chloride Carbon Dioxide BUN Creatinine 1.30 H Glucose Cancelled 138 H Calcium Cancelled 9.5 Cardiac Enzymes 06/02/24 Range/Units 19:45 Troponin I < 0.012 (0.000-0.034) ng/mL Liver Function 06/02/24 06/02/24 06/02/24 Range/Units 19:45 19:45 19:45 Total Bilirubin Cancelled 0.6 AST Cancelled 26 ALT Cancelled Alkaline Phosphatase Albumin 06/02/24 06/02/24 06/02/24 Range/Units 19:45 19:45 19:45 Total Bilirubin AST ALT 13 Alkaline Phosphatase Cancelled 89 Albumin Cancelled 4.6 Assessment and Plan Assessment and plan (1) Atrial fibrillation with rapid ventricular response: Code(s): I48.91 - Unspecified atrial fibrillation Status: Resolved Assessment and Plan: ADMIT TO IMU PATIENT WAS STARTED ON DILTIAZEM DRIP CARDIOLOGY CONSULT RESTART HOME MEDS (2) CKD (chronic kidney disease) stage 3, GFR 30-59 ml/min: Code(s): N18.3 - Chronic kidney disease, stage 3 (moderate) Status: Acute Assessment and Plan: CONTINUE TO MONITOR (3) Chronic combined systolic and diastolic congestive heart failure: Code(s): I50.42 - Chronic combined systolic (congestive) and diastolic (congestive) heart failure Status: Acute Assessment and Plan: APPEARS EUVOLEMIC (4) Obstructive sleep apnea: Code(s): G47.33 - Obstructive sleep apnea (adult) (pediatric) Status: Acute Assessment and Plan: CPAP AT NIGHTTIME (5) GERD (gastroesophageal reflux disease): Code(s): K21.9 - Gastro-esophageal reflux disease without esophagitis Status: Acute Assessment and Plan: PPI Hospitalist MIPS Advance Care Plan I have confirmed that the patient's Advanced Care Plan is present, code status is documented, or surrogate decision maker is listed in patient medical record.: Yes Medication Reconciliation I have utilized all available resources to obtain, update and review the patients current medications (includes all prescriptions, OTC, herbals, cannabis, and nutritional supplements).: Yes
[2024-06-02 23:24] LABS: Troponin I < 0.012 ng/mL (0.000-0.034)
[2024-06-02] MEDS: ACETAMINOPHEN 500 MG TABLET 1000 MG PO (23:33)
[2024-06-03] VITALS (20 sets, daily range): BP systolic 125–186; BP diastolic 49–84; PULSE 50–105; RESP 16–23; TEMP 36.4–36.8; O2SAT 96–100; BMI 30.4
[2024-06-03 01:54] LABS: Add Urine Microscopic? YES; Appearance Urine Clear (Clear); Bilirubin Urine Negative (Negative); Blood Urine Negative (Negative); Color Urine Yellow (Yellow); Glucose Urine UA Negative (Negative); Ketones Urine Negative (Negative); Leukocyte Esterase Ur 1+ LEU/UL (Negative); Nitrate Urine Negative (Negative); Non Pathogenic Casts 0-2; Protein Urine Negative (Negative); RBC Urine 0-2 /hpf (0-2); Specific Grav Ur 1.009 (1.001-1.035); Squamous Epithelial Cell Urine None Seen /hpf (Few)
[2024-06-03 01:58] LABS: Bacteria Urine Trace /hpf
--- NOTE | 2024-06-03 02:33 | PC.NURSE ---
This patient, Chiara Faith, was admitted to IMU Room 206-01 at 0151. Patient/family oriented to hospital policies and general routines including ID bracelet, bed and alarms, visiting hours, pain management, procedures, bathroom and other care routines, personal items, smoking policy, room service/diet, and visiting hours. Information on how to activate the Rapid Response Team has been discussed. Patient/Family are encouraged to report perceived risks to care and to ask questions if they do not understand what they are told or what they should do.
[2024-06-03 05:05] LABS: Troponin I < 0.012 ng/mL (0.000-0.034)
[2024-06-03 07:42] LABS: Basophils Absolute Auto 0.1 K/mm3 (0.0-0.1); Basophils Percent Auto 0.6 % (0.2-1.2); Eosinophils Absolute Auto 0.2 K/mm3 (0-0.3); Hematocrit 38.5 % (37.0-47.0); Hemoglobin 12.2 g/dL (12.0-15.0); Immature Granulocyte Absolute 0.03 K/mm3 (0.00-0.031); Immature Granulocyte Percent A 0.3 % (0-0.5); Lymphocytes Absolute Auto 2.81 K/mm3 (0.9-3.2); Lymphocytes Percent Auto 31.9 % (18.3-44.2); Mean Corpuscular HGB Conc 31.7 g/dl (32-36); Mean Corpuscular Volume 88.5 fl (80-100); Mean Platelet Volume 11.1 fl (7.4-10.4); Monocytes Absolute Auto 0.8 K/mm3 (0.1-0.6); Monocytes Percent Auto 8.7 % (2.6-8.5); Neutrophils Percent Auto 56.5 % (45.5-73.1); Platelet Count Result 218 k/mm3 (150-375); Red Blood Count 4.35 M/mm3 (4.2-5.4); Red Cell Distribution Width 15.2 % (11.5-14.5); White Blood Count 8.8 K/mm3 (4.5-10.0)
[2024-06-03 08:01] LABS: Alanine Aminotransferase 12 U/L (6-35); Albumin Level 3.9 g/dL (3.5-5.1); Alkaline Phosphatase 83 U/L (38-126); Anion Gap 9 mmol/L (4-12); Aspartate Amino Transferase 26 U/L (14-36); Bilirubin,Total 0.4 mg/dL (0.2-1.3); Blood Urea Nitrogen 12 mg/dL (7-17); Calcium 9.1 mg/dL (8.4-10.2); Carbon Dioxide 26 mmol/L (22-30); Chloride 103 mmol/L (98-107); Estimated Glomerular Filt Rate 43; Glucose 131 mg/dL (65-110); Magnesium 2.2 mg/dL (1.6-2.3); Potassium 3.7 mmol/L (3.4-5.0); Sodium 138 mmol/L (137-145)
--- NOTE | 2024-06-03 08:20 | ECG_ITS ---
Test Date: 2024-06-03 08:26:30 Measurements Intervals [place] Rate: 56 P: 16 MO: 272 QRS: -22 QRSD: 75 T: 10 QT: 450 QTc: 435 Interpretive Statements SINUS BRADYCARDIA WITH FIRST DEGREE AV BLOCK BORDERLINE LEFT AXIS DEVIATION [QRS AXIS < -20] LOW QRS VOLTAGE IN PRECORDIAL LEADS [QRS DEFLECTION < 1.0 mV IN CHEST LEADS] VOLTAGE CRITERIA FOR LVH [MEETS CRITERIA IN ONE OF: R(aVL), S(V1), R(V5), R(V5/V6)+S(V1)] NONSPECIFIC T-WAVE ABNORMALITY ABNORMAL ECG Compared to ECG 06/02/2024 19:18:26 SINUS RHYTHM REPLACES ATRIAL FIBRILLATION Electronically Signed On 06-03-2024 14:32:31 CDT by Freddie Velasco M.D.
[2024-06-03] MEDS: PANTOPRAZOLE 40 MG TABLET PO (09:22)
[2024-06-03] MEDS: LOSARTAN POTASSIUM 100 MG TABLET PO (09:22)
[2024-06-03] MEDS: ALPRAZolam (*CRX) 0.5 MG TABLET PO ×2 (09:22→20:32)
[2024-06-03] MEDS: LOVASTATIN 20 MG TABLET PO (09:23)
[2024-06-03] MEDS: ASPIRIN 81 MG ENTERIC TABLET PO (09:23)
[2024-06-03] MEDS: APIXABAN 5 MG TABLET PO ×2 (09:23→20:32)
--- NOTE | 2024-06-03 13:44 | PM.IMPN ---
Progress Note: A&P Assessment and Plan (1) Atrial fibrillation with rapid ventricular response: Code(s): I48.91 - Unspecified atrial fibrillation Status: Resolved Assessment and Plan: Converted to NSR continue Eliquis and Sotalol Monitor overnight (2) CKD (chronic kidney disease) stage 3, GFR 30-59 ml/min: Code(s): N18.3 - Chronic kidney disease, stage 3 (moderate) Status: Acute Assessment and Plan: CONTINUE TO MONITOR (3) Chronic combined systolic and diastolic congestive heart failure: Code(s): I50.42 - Chronic combined systolic (congestive) and diastolic (congestive) heart failure Status: Acute Assessment and Plan: euvolemic and continue home meds (4) Obstructive sleep apnea: Code(s): G47.33 - Obstructive sleep apnea (adult) (pediatric) Status: Acute Assessment and Plan: CPAP AT NIGHTTIME (5) GERD (gastroesophageal reflux disease): Code(s): K21.9 - Gastro-esophageal reflux disease without esophagitis Status: Acute Assessment and Plan: PPI Subjective Date/time seen: 06/03/24 13:44 Interval history: Comfortable at bedside Noted SOB has resolved now in NSR monitor one more night Exam Narrative: General: alert and comfortable Eyes: EOMI, PERRLA ENNT External ears normal, Neck is supple, no masses, Respiratory systems: Clear to auscultation Cardiovascular S1, S2, normal rhythm, no murmur, rub, or gallop; no thrill or palpable murmurs on palpation. Gastrointestinal: soft, non-tender, and non-distended abdomen with no masses; BS present Skin: no rash, lesions, ulcerations, subcutaneous nodules or induration Musculoskeletal: no abnormality and no tenderness, normal ROM Neurologic: Alert and oriented x3, non focal Mental Status Exam: normal affect Objective Data Vital Signs Vital Signs: Vital Signs - 24 hr 06/02/24 19:11 06/02/24 20:17 06/02/24 22:00 Temperature 98.2 F Pulse Rate 97 109 H Respiratory Rate 17 Blood Pressure 146/92 H 137/108 H Pulse Oximetry 98 98 Oxygen Delivery Room Air 06/03/24 01:15 06/03/24 00:45 06/03/24 00:30 Temperature Pulse Rate 73 77 79 Respiratory Rate 19 18 23 H Blood Pressure 136/73 151/58 H 125/58 L Pulse Oximetry 97 97 96 Oxygen Delivery 06/03/24 00:00 06/02/24 23:45 06/02/24 23:30 Temperature Pulse Rate 70 73 73 Respiratory Rate 18 16 15 Blood Pressure 132/84 140/59 L 131/62 Pulse Oximetry 97 97 97 Oxygen Delivery 06/02/24 23:15 06/02/24 23:00 06/02/24 22:45 Temperature Pulse Rate 74 72 70 Respiratory Rate 21 H 15 17 Blood Pressure 123/74 123/51 L 118/60 Pulse Oximetry 97 96 97 Oxygen Delivery 06/02/24 22:15 06/02/24 22:00 06/02/24 21:45 Temperature Pulse Rate 79 81 126 H Respiratory Rate 19 14 16 Blood Pressure 147/78 H 145/66 H 115/54 L Pulse Oximetry 97 97 97 Oxygen Delivery 06/02/24 21:30 06/02/24 21:15 06/02/24 21:00 Temperature Pulse Rate 79 80 77 Respiratory Rate 18 18 17 Blood Pressure 134/62 152/79 H 137/64 Pulse Oximetry 98 98 98 Oxygen Delivery 06/02/24 20:45 06/02/24 20:30 06/02/24 20:15 Temperature Pulse Rate 85 95 108 H Respiratory Rate 23 H 17 18 Blood Pressure 135/83 118/78 137/108 H Pulse Oximetry 95 96 98 Oxygen Delivery 06/02/24 20:00 06/02/24 19:45 06/02/24 19:39 Temperature Pulse Rate 116 H 112 H 118 H Respiratory Rate 19 22 H 24 H Blood Pressure 157/136 H 181/92 H 149/95 H Pulse Oximetry 97 98 96 Oxygen Delivery 06/03/24 02:00 06/03/24 01:51 06/03/24 02:00 Temperature 98.1 F Pulse Rate 76 105 H Respiratory Rate 20 Blood Pressure 149/67 H Pulse Oximetry 96 Oxygen Delivery Room Air 06/03/24 02:00 06/03/24 04:13 06/03/24 04:00 Temperature 97.8 F Pulse Rate 90 70 Respiratory Rate 20 Blood Pressure 149/67 H 152/58 H Pulse Oximetry 96 Oxygen Delivery Room Air 06/03/24 04:00 06/03/24 04:00 06/03/24 05:22 Temperature Pulse Rate 73 63 61 Respiratory Rate Blood Pressure 152/58 H Pulse Oximetry Oxygen Delivery 06/03/24 08:42 06/03/24 08:42 06/03/24 08:00 Temperature 97.7 F Pulse Rate 57 L 57 L 57 L Respiratory Rate 20 Blood Pressure 181/54 H Pulse Oximetry 100 Oxygen Delivery 06/03/24 08:00 06/03/24 10:00 06/03/24 08:00 Temperature Pulse Rate 96 50 L Respiratory Rate Blood Pressure Pulse Oximetry Oxygen Delivery Room Air 06/03/24 12:00 06/03/24 12:00 Temperature 97.6 F Pulse Rate 61 Respiratory Rate 18 Blood Pressure 178/60 H Pulse Oximetry 98 Oxygen Delivery Room Air Intake/Output Intake/Output: Intake & Output 05/31/24 06/01/24 06/02/24 06/03/24 23:59 23:59 23:59 23:59 Intake Total 378.6 Balance 378.6 Meds/Results Medications: Active Medications Generic Name Dose Route Start Last Admin Trade Name Freq PRN Reason Stop Dose Admin Albuterol 2 puff 06/03/24 01:05 Albuterol Sulfate (*Sp) Aerosol 1 Puff INHALATION Q4H PRN shortness of breath or wheezing Alprazolam 0.5 mg 06/03/24 01:05 06/03/24 09:22 Alprazolam (*Crx) 0.5 Mg Tablet PO 0.5 mg TID PRN Administration anxiety Apixaban 5 mg 06/03/24 09:00 06/03/24 09:23 Apixaban 5 Mg Tablet PO 5 mg Q12HR CYRIL Administration Aspirin 81 mg 06/03/24 09:00 06/03/24 09:23 Aspirin 81 Mg Enteric Tablet PO 81 mg DAILY CYRIL Administration Losartan Potassium 100 mg 06/03/24 09:00 06/03/24 09:22 Losartan Potassium 100 Mg Tablet PO 100 mg DAILY CYRIL Administration Lovastatin 20 mg 06/03/24 09:00 06/03/24 09:23 Lovastatin 20 Mg Tablet PO 20 mg DAILY CYRIL Administration Melatonin 3 mg 06/03/24 01:05 Melatonin 3 Mg Tablet PO HS PRN Insomnia Pantoprazole Sodium 40 mg 06/03/24 09:00 06/03/24 09:22 Pantoprazole 40 Mg Tablet PO 40 mg QAM CYRIL Administration Sotalol HCl 80 mg 06/03/24 09:00 06/03/24 08:42 Sotalol Hcl 80 Mg Tablet PO Not Given Q12HR [facility] Sotalol HCl 40 mg 06/03/24 09:00 06/03/24 08:42 Sotalol Hcl 40 Mg Tablet PO Not Given Q12HR [facility] Tramadol HCl 50 mg 06/03/24 01:05 Tramadol Hcl (*Crx) 50 Mg Tablet PO Q6H PRN pain Radiology Results: ITS Impressions Chest X-Ray 06/02/24 19:47 IMPRESSION: No acute cardiopulmonary process. Foot X-Ray 06/02/24 21:17 IMPRESSION: No acute osseous finding in the right foot. Labs Labs: Laboratory Results - last 24 hr 06/02/24 06/02/24 06/02/24 19:45 19:45 19:45 WBC 7.9 RBC 4.59 Hgb 12.6 Hct 40.7 MCV 88.7 MCH 27.5 MCHC 31.0 L RDW 15.0 H Plt Count 224 MPV 10.3 Immature Gran % (Auto) 0.4 Neut % (Auto) 61.7 Lymph % (Auto) 27.4 [place] % (Auto) 7.6 Eos % (Auto) 2.3 Baso % (Auto) 0.6 Lymph # (Auto) 2.17 [place] # (Auto) 0.6 Eos # (Auto) 0.2 Baso # (Auto) 0.1 Abs Immat Gran (auto) 0.03 Absolute Neuts (auto) 4.9 Absolute Nucleated RBC 0.000 Nucleated RBC % 0.0 PT 17.0 H INR 1.4 APTT 30.5 Sodium Cancelled 138 Potassium Cancelled 4.1 Chloride Cancelled Carbon Dioxide Anion Gap BUN Creatinine Estim Creat Clear Calc Estimated GFR Glucose Calcium Magnesium Total Bilirubin AST ALT Alkaline Phosphatase Troponin I NT-Pro-B Natriuret Pep Total Protein Albumin Lipase Urine Color Urine Appearance Urine pH Ur Specific [place] Urine Protein Urine Glucose (UA) Urine Ketones Ur Blood (Man) Urine Nitrate Urine Bilirubin Urine Urobilinogen Leukocyte Esterase Rfl Urine RBC Urine WBC Ur Squamous Epith Cells Urine Bacteria Urine Casts 06/02/24 06/02/24 06/02/24 19:45 19:45 19:45 WBC RBC Hgb Hct MCV MCH MCHC RDW Plt Count MPV Immature Gran % (Auto) Neut % (Auto) Lymph % (Auto) [place] % (Auto) Eos % (Auto) Baso % (Auto) Lymph # (Auto) [place] # (Auto) Eos # (Auto) Baso # (Auto) Abs Immat Gran (auto) Absolute Neuts (auto) Absolute Nucleated RBC Nucleated RBC % PT INR APTT Sodium Potassium Chloride 102 Carbon Dioxide Cancelled 27 Anion Gap Cancelled 9 BUN Cancelled Creatinine Estim Creat Clear Calc Estimated GFR Glucose Calcium Magnesium Total Bilirubin AST ALT Alkaline Phosphatase Troponin I NT-Pro-B Natriuret Pep Total Protein Albumin Lipase Urine Color Urine Appearance Urine pH Ur Specific [place] Urine Protein Urine Glucose (UA) Urine Ketones Ur Blood (Man) Urine Nitrate Urine Bilirubin Urine Urobilinogen Leukocyte Esterase Rfl Urine RBC Urine WBC Ur Squamous Epith Cells Urine Bacteria Urine Casts 06/02/24 06/02/24 06/02/24 19:45 19:45 19:45 WBC RBC Hgb Hct MCV MCH MCHC RDW Plt Count MPV Immature Gran % (Auto) Neut % (Auto) Lymph % (Auto) [place] % (Auto) Eos % (Auto) Baso % (Auto) Lymph # (Auto) [place] # (Auto) Eos # (Auto) Baso # (Auto) Abs Immat Gran (auto) Absolute Neuts (auto) Absolute Nucleated RBC Nucleated RBC % PT INR APTT Sodium Potassium Chloride Carbon Dioxide Anion Gap BUN 13 Creatinine Cancelled 1.30 H Estim Creat Clear Calc Cancelled Not Reportable Estimated GFR Cancelled Glucose Calcium Magnesium Total Bilirubin AST ALT Alkaline Phosphatase Troponin I NT-Pro-B Natriuret Pep Total Protein Albumin Lipase Urine Color Urine Appearance Urine pH Ur Specific [place] Urine Protein Urine Glucose (UA) Urine Ketones Ur Blood (Man) Urine Nitrate Urine Bilirubin Urine Urobilinogen Leukocyte Esterase Rfl Urine RBC Urine WBC Ur Squamous Epith Cells Urine Bacteria Urine Casts 06/02/24 06/02/24 06/02/24 19:45 19:45 19:45 WBC RBC Hgb Hct MCV MCH MCHC RDW Plt Count MPV Immature Gran % (Auto) Neut % (Auto) Lymph % (Auto) [place] % (Auto) Eos % (Auto) Baso % (Auto) Lymph # (Auto) [place] # (Auto) Eos # (Auto) Baso # (Auto) Abs Immat Gran (auto) Absolute Neuts (auto) Absolute Nucleated RBC Nucleated RBC % PT INR APTT Sodium Potassium Chloride Carbon Dioxide Anion Gap BUN Creatinine Estim Creat Clear Calc Estimated GFR 39 L Glucose Cancelled 138 H Calcium Cancelled 9.5 Magnesium 2.2 Total Bilirubin Cancelled AST ALT Alkaline Phosphatase Troponin I NT-Pro-B Natriuret Pep Total Protein Albumin Lipase Urine Color Urine Appearance Urine pH Ur Specific [place] Urine Protein Urine Glucose (UA) Urine Ketones Ur Blood (Man) Urine Nitrate Urine Bilirubin Urine Urobilinogen Leukocyte Esterase Rfl Urine RBC Urine WBC Ur Squamous Epith Cells Urine Bacteria Urine Casts 06/02/24 06/02/24 06/02/24 19:45 19:45 19:45 WBC RBC Hgb Hct MCV MCH MCHC RDW Plt Count MPV Immature Gran % (Auto) Neut % (Auto) Lymph % (Auto) [place] % (Auto) Eos % (Auto) Baso % (Auto) Lymph # (Auto) [place] # (Auto) Eos # (Auto) Baso # (Auto) Abs Immat Gran (auto) Absolute Neuts (auto) Absolute Nucleated RBC Nucleated RBC % PT INR APTT Sodium Potassium Chloride Carbon Dioxide Anion Gap BUN Creatinine Estim Creat Clear Calc Estimated GFR Glucose Calcium Magnesium Total Bilirubin 0.6 AST Cancelled 26 ALT Cancelled 13 Alkaline Phosphatase Cancelled Troponin I NT-Pro-B Natriuret Pep Total Protein Albumin Lipase Urine Color Urine Appearance Urine pH Ur Specific [place] Urine Protein Urine Glucose (UA) Urine Ketones Ur Blood (Man) Urine Nitrate Urine Bilirubin Urine Urobilinogen Leukocyte Esterase Rfl Urine RBC Urine WBC Ur Squamous Epith Cells Urine Bacteria Urine Casts 06/02/24 06/02/24 06/02/24 19:45 19:45 19:45 WBC RBC Hgb Hct MCV MCH MCHC RDW Plt Count MPV Immature Gran % (Auto) Neut % (Auto) Lymph % (Auto) [place] % (Auto) Eos % (Auto) Baso % (Auto) Lymph # (Auto) [place] # (Auto) Eos # (Auto) Baso # (Auto) Abs Immat Gran (auto) Absolute Neuts (auto) Absolute Nucleated RBC Nucleated RBC % PT INR APTT Sodium Potassium Chloride Carbon Dioxide Anion Gap BUN Creatinine Estim Creat Clear Calc Estimated GFR Glucose Calcium Magnesium Total Bilirubin AST ALT Alkaline Phosphatase 89 Troponin I < 0.012 NT-Pro-B Natriuret Pep Cancelled 236 H Total Protein Cancelled 8.0 Albumin Cancelled Lipase Urine Color Urine Appearance Urine pH Ur Specific [place] Urine Protein Urine Glucose (UA) Urine Ketones Ur Blood (Man) Urine Nitrate Urine Bilirubin Urine Urobilinogen Leukocyte Esterase Rfl Urine RBC Urine WBC Ur Squamous Epith Cells Urine Bacteria Urine Casts 06/02/24 06/02/24 06/02/24 19:45 19:45 22:45 WBC RBC Hgb Hct MCV MCH MCHC RDW Plt Count MPV Immature Gran % (Auto) Neut % (Auto) Lymph % (Auto) [place] % (Auto) Eos % (Auto) Baso % (Auto) Lymph # (Auto) [place] # (Auto) Eos # (Auto) Baso # (Auto) Abs Immat Gran (auto) Absolute Neuts (auto) Absolute Nucleated RBC Nucleated RBC % PT INR APTT Sodium Potassium Chloride Carbon Dioxide Anion Gap BUN Creatinine Estim Creat Clear Calc Estimated GFR Glucose Calcium Magnesium Total Bilirubin AST ALT Alkaline Phosphatase Troponin I < 0.012 NT-Pro-B Natriuret Pep Total Protein Albumin 4.6 Lipase Cancelled 109 Urine Color Urine Appearance Urine pH Ur Specific [place] Urine Protein Urine Glucose (UA) Urine Ketones Ur Blood (Man) Urine Nitrate Urine Bilirubin Urine Urobilinogen Leukocyte Esterase Rfl Urine RBC Urine WBC Ur Squamous Epith Cells Urine Bacteria Urine Casts 06/03/24 06/03/24 06/03/24 01:47 04:27 04:28 WBC 8.8 RBC 4.35 Hgb 12.2 Hct 38.5 MCV 88.5 MCH 28.0 MCHC 31.7 L RDW 15.2 H Plt Count 218 MPV 11.1 H Immature Gran % (Auto) 0.3 Neut % (Auto) 56.5 Lymph % (Auto) 31.9 [place] % (Auto) 8.7 H Eos % (Auto) 2.0 Baso % (Auto) 0.6 Lymph # (Auto) 2.81 [place] # (Auto) 0.8 H Eos # (Auto) 0.2 Baso # (Auto) 0.1 Abs Immat Gran (auto) 0.03 Absolute Neuts (auto) 5.0 Absolute Nucleated RBC 0.000 Nucleated RBC % 0.0 PT INR APTT Sodium 138 Potassium 3.7 Chloride 103 Carbon Dioxide 26 Anion Gap 9 BUN 12 Creatinine 1.20 H Estim Creat Clear Calc Not Reportable Estimated GFR 43 L Glucose 131 H Calcium 9.1 Magnesium 2.2 Total Bilirubin 0.4 AST 26 ALT 12 Alkaline Phosphatase 83 Troponin I < 0.012 NT-Pro-B Natriuret Pep Total Protein 7.0 Albumin 3.9 Lipase Urine Color Yellow Urine Appearance Clear Urine pH 7.0 Ur Specific [place] 1.009 Urine Protein Negative Urine Glucose (UA) Negative Urine Ketones Negative Ur Blood (Man) Negative Urine Nitrate Negative Urine Bilirubin Negative Urine Urobilinogen 1.0 Leukocyte Esterase Rfl 1+ H Urine RBC 0-2 Urine WBC 11-20 H Ur Squamous Epith Cells None seen Urine Bacteria Trace Urine Casts 0-2 Quality VTE Prophylaxis VTE prophylaxis: pharmacologic ordered (on Eliquis )
[2024-06-03] MEDS: amLODIPine BESYLATE 2.5 MG TABLET PO (17:08)
[2024-06-03] MEDS: SOTALOL HCL 80 MG TABLET PO (20:31)
[2024-06-03] MEDS: SOTALOL HCL 40 MG TABLET PO (20:31)
[2024-06-03] MEDS: traMADol HCL (*CRX) 50 MG TABLET PO (20:32)
[2024-06-03] MEDS: MELATONIN 3 MG TABLET PO (20:33)
[2024-06-04] VITALS (16 sets, daily range): BP systolic 145–181; BP diastolic 52–98; PULSE 45–112; RESP 12–20; TEMP 36.2–36.9; O2SAT 96–100
[2024-06-04 05:33] LABS: Basophils Absolute Auto 0.1 K/mm3 (0.0-0.1); Basophils Percent Auto 0.7 % (0.2-1.2); Eosinophils Absolute Auto 0.2 K/mm3 (0-0.3); Eosinophils Percent Auto 3.2 % (0-4.4); Hematocrit 35.2 % (37.0-47.0); Hemoglobin 11.2 g/dL (12.0-15.0); Immature Granulocyte Absolute 0.04 K/mm3 (0.00-0.031); Immature Granulocyte Percent A 0.6 % (0-0.5); Lymphocytes Absolute Auto 2.21 K/mm3 (0.9-3.2); Lymphocytes Percent Auto 30.9 % (18.3-44.2); Mean Corpuscular HGB Conc 31.8 g/dl (32-36); Mean Corpuscular Hemoglobin 28.1 pg (26-34); Mean Corpuscular Volume 88.4 fl (80-100); Mean Platelet Volume 10.7 fl (7.4-10.4); Monocytes Absolute Auto 0.6 K/mm3 (0.1-0.6); Monocytes Percent Auto 7.8 % (2.6-8.5); Neutrophils Absolute Auto 4.1 K/mm3 (1.3-6.7); Neutrophils Percent Auto 56.8 % (45.5-73.1); Platelet Count Result 192 k/mm3 (150-375); Red Blood Count 3.98 M/mm3 (4.2-5.4); White Blood Count 7.2 K/mm3 (4.5-10.0)
[2024-06-04 05:41] LABS: Lactic Acid Reflex 1.4 mmol/L (0.7-2.0)
[2024-06-04 05:46] LABS: Alanine Aminotransferase 11 U/L (6-35); Albumin Level 3.5 g/dL (3.5-5.1); Alkaline Phosphatase 78 U/L (38-126); Anion Gap 7 mmol/L (4-12); Aspartate Amino Transferase 21 U/L (14-36); Bilirubin,Total 0.6 mg/dL (0.2-1.3); Blood Urea Nitrogen 15 mg/dL (7-17); Calcium 9.3 mg/dL (8.4-10.2); Carbon Dioxide 26 mmol/L (22-30); Chloride 103 mmol/L (98-107); Estimated Glomerular Filt Rate 39; Glucose 126 mg/dL (65-110); Magnesium 2.1 mg/dL (1.6-2.3); Potassium 4.2 mmol/L (3.4-5.0); Sodium 136 mmol/L (137-145)
[2024-06-04] MEDS: amLODIPine BESYLATE 2.5 MG TABLET PO (09:38)
[2024-06-04] MEDS: APIXABAN 5 MG TABLET PO ×2 (09:38→20:14)
[2024-06-04] MEDS: ASPIRIN 81 MG ENTERIC TABLET PO (09:38)
[2024-06-04] MEDS: FUROSEMIDE 20 MG TABLET PO (09:38)
[2024-06-04] MEDS: LOVASTATIN 20 MG TABLET PO (09:38)
[2024-06-04] MEDS: LOSARTAN POTASSIUM 100 MG TABLET PO (09:39)
[2024-06-04] MEDS: PANTOPRAZOLE 40 MG TABLET PO (09:39)
[2024-06-04] MEDS: ALPRAZolam (*CRX) 0.5 MG TABLET PO ×2 (09:42→20:17)
--- NOTE | 2024-06-04 10:39 | PM.IMPN ---
Progress Note: A&P Assessment and Plan (1) Atrial fibrillation with rapid ventricular response: Code(s): I48.91 - Unspecified atrial fibrillation Status: Resolved Assessment and Plan: Converted to NSR continue Eliquis and Sotalol Monitor overnight (2) CKD (chronic kidney disease) stage 3, GFR 30-59 ml/min: Code(s): N18.3 - Chronic kidney disease, stage 3 (moderate) Status: Acute Assessment and Plan: CONTINUE TO MONITOR (3) Chronic combined systolic and diastolic congestive heart failure: Code(s): I50.42 - Chronic combined systolic (congestive) and diastolic (congestive) heart failure Status: Acute Assessment and Plan: euvolemic and continue home meds (4) Obstructive sleep apnea: Code(s): G47.33 - Obstructive sleep apnea (adult) (pediatric) Status: Acute Assessment and Plan: CPAP AT NIGHTTIME (5) GERD (gastroesophageal reflux disease): Code(s): K21.9 - Gastro-esophageal reflux disease without esophagitis Status: Acute Assessment and Plan: PPI Subjective Date/time seen: 06/04/24 10:39 Interval history: Patient was evaluated at the bedside. The nursing reports fluctuation in the heart rate sometimes falling around 40. Today currently we hold the sotalol 120 mg b.i.d. which was she is taking as a home medication. Patient is taking losartan and furosemide as a home medication. We have consulted Cardiology. Patient denies any history of stent placement or bypass. Patient reports Monday her AFib was acting up after heated conversation with her son-in-law. Patient reports her episodes a.fib frequency has been increased lately . Patient denies alcohol. Review of Systems Review of Systems: PALPITATIONS, LIGHTHEADEDNESS, DIZZINESS Exam Narrative: General: alert and comfortable Eyes: EOMI, PERRLA ENNT External ears normal, Neck is supple, no masses, Respiratory systems: Clear to auscultation Cardiovascular S1, S2, normal rhythm, no murmur, rub, or gallop; no thrill or palpable murmurs on palpation. Gastrointestinal: soft, non-tender, and non-distended abdomen with no masses; BS present Skin: no rash, lesions, ulcerations, subcutaneous nodules or induration Musculoskeletal: no abnormality and no tenderness, normal ROM Neurologic: Alert and oriented x3, non focal Mental Status Exam: normal affect Const: General: comfortable, no acute distress, well developed, alert, awake and average body habitus Nutritional Appearance: average body habitus Orientation/consciousness: patient oriented x3 Other: WELL-APPEARING HENMT: Head: normal to inspection, normocephalic and atraumatic Ears: hearing grossly normal bilaterally Face/Nose/Sinus: normal facial exam Face and sinus: normal facial exam Eyes: General: appearance normal, both eyes and all related structures Pupils: Equal, round and reactive pupils present EOM: EOMs intact bilaterally Neck: Neck: full ROM, no lymphadenopathy and no JVD Thyroid: thyroid normal Lymphatic: no lymphadenopathy noted Resp: Effort & Inspection: normal respiratory effort and able to speak in complete sentences Auscultation: clear to auscultation bilaterally Cardio: Jugular venous distension: no JVD Rate: regular rate Rhythm: abnormal rhythm irregularly irregular Heart sounds: S1 normal heart sound present and S2 normal heart sound present : General: Yes deferred Skin: Rashes: no rashes Wounds: no wounds Neuro: General: patient oriented x3, CN's II-XI intact bilaterally and Unable to assess gait Cranial nerves: Yes CN's II-XII intact bilaterally and Yes Equal, round and reactive pupils present Cognition (Neuro): normal cognition Speech: normal speech Gait exam (Neuro): Unable to assess gait Motor exam (neuro): 5/5 motor strength present throughout Extrem: General: normal to inspection, full ROM, no joint enlargement and no pedal edema Objective Data Vital Signs Vital Signs: Vital Signs - 24 hr 06/03/24 12:00 06/03/24 12:00 06/03/24 12:00 Temperature 97.6 F Pulse Rate 61 64 Respiratory Rate 18 Blood Pressure 178/60 H Pulse Oximetry 98 Oxygen Delivery Room Air 06/03/24 14:00 06/03/24 16:00 06/03/24 16:00 Temperature 98 F Pulse Rate 52 L 61 Respiratory Rate 16 Blood Pressure 186/49 H Pulse Oximetry 99 Oxygen Delivery Room Air 06/03/24 16:00 06/03/24 18:00 06/03/24 19:56 Temperature Pulse Rate 56 L 61 61 Respiratory Rate 16 Blood Pressure Pulse Oximetry 99 Oxygen Delivery Room Air 06/03/24 20:00 06/03/24 20:31 06/03/24 20:31 Temperature 98.2 F Pulse Rate 67 68 68 Respiratory Rate 16 Blood Pressure 156/57 H Pulse Oximetry 97 Oxygen Delivery 06/03/24 20:00 06/03/24 22:24 06/04/24 00:27 Temperature 98.5 F Pulse Rate 68 60 45 L Respiratory Rate 16 Blood Pressure 150/59 H Pulse Oximetry 96 Oxygen Delivery 06/04/24 00:00 06/04/24 00:00 06/04/24 02:00 Temperature Pulse Rate 45 L 46 L 45 L Respiratory Rate 16 Blood Pressure Pulse Oximetry 96 Oxygen Delivery Room Air 06/04/24 03:43 06/04/24 04:00 06/04/24 04:56 Temperature 97.8 F Pulse Rate 45 L 50 L 51 L Respiratory Rate 16 16 Blood Pressure 174/55 H Pulse Oximetry 96 98 Oxygen Delivery Room Air 06/04/24 06:00 06/04/24 08:00 06/04/24 09:44 Temperature 98.2 F Pulse Rate 54 L 58 L Respiratory Rate 12 Blood Pressure 181/52 H Pulse Oximetry 99 98 Oxygen Delivery Room Air 06/04/24 08:00 06/04/24 08:00 06/04/24 10:00 Temperature Pulse Rate 56 L 46 L Respiratory Rate Blood Pressure Pulse Oximetry Oxygen Delivery Room Air Intake/Output Intake/Output: Intake & Output 06/01/24 06/02/24 06/03/24 06/04/24 23:59 23:59 23:59 23:59 Intake Total 918.6 420 Output Total 300 Balance 618.6 420 Meds/Results Medications: Active Medications Generic Name Dose Route Start Last Admin Trade Name Freq PRN Reason Stop Dose Admin Albuterol 2 puff 06/03/24 01:05 Albuterol Sulfate (*Sp) Aerosol 1 Puff INHALATION Q4H PRN shortness of breath or wheezing Alprazolam 0.5 mg 06/03/24 01:05 06/04/24 09:42 Alprazolam (*Crx) 0.5 Mg Tablet PO 0.5 mg TID PRN Administration anxiety Amlodipine Besylate 2.5 mg 06/03/24 16:35 06/04/24 09:38 Amlodipine Besylate 2.5 Mg Tablet PO 2.5 mg QAM CYRIL Administration Apixaban 5 mg 06/03/24 09:00 06/04/24 09:38 Apixaban 5 Mg Tablet PO 5 mg Q12HR CYRIL Administration Aspirin 81 mg 06/03/24 09:00 06/04/24 09:38 Aspirin 81 Mg Enteric Tablet PO 81 mg DAILY CYRIL Administration Furosemide 20 mg 06/04/24 09:00 06/04/24 09:38 Furosemide 20 Mg Tablet PO 20 mg QAM CYRIL Administration Hydralazine HCl 10 mg 06/03/24 16:31 Hydralazine Hcl 20 Mg/Ml Vial IV PUSH Q4H PRN Blood Pressure - High Losartan Potassium 100 mg 06/03/24 09:00 06/04/24 09:39 Losartan Potassium 100 Mg Tablet PO 100 mg DAILY CYRIL Administration Lovastatin 20 mg 06/03/24 09:00 06/04/24 09:38 Lovastatin 20 Mg Tablet PO 20 mg DAILY CYRIL Administration Melatonin 3 mg 06/03/24 01:05 06/03/24 20:33 Melatonin 3 Mg Tablet PO 3 mg HS PRN Administration Insomnia Pantoprazole Sodium 40 mg 06/03/24 09:00 06/04/24 09:39 Pantoprazole 40 Mg Tablet PO 40 mg QAM CYRIL Administration Sotalol HCl 80 mg 06/03/24 09:00 06/03/24 20:31 Sotalol Hcl 80 Mg Tablet PO 80 mg Q12HR CYRIL Administration Sotalol HCl 40 mg 06/03/24 09:00 06/03/24 20:31 Sotalol Hcl 40 Mg Tablet PO 40 mg Q12HR CYRIL Administration Tramadol HCl 50 mg 06/03/24 01:05 06/03/24 20:32 Tramadol Hcl (*Crx) 50 Mg Tablet PO 50 mg Q6H PRN Administration pain Radiology Results: ITS Impressions Chest X-Ray 06/02/24 19:47 IMPRESSION: No acute cardiopulmonary process. Foot X-Ray 06/02/24 21:17 IMPRESSION: No acute osseous finding in the right foot. Labs Labs: Laboratory Results - last 24 hr 06/04/24 04:53 WBC 7.2 RBC 3.98 L Hgb 11.2 L Hct 35.2 L MCV 88.4 MCH 28.1 MCHC 31.8 L RDW 15.0 H Plt Count 192 MPV 10.7 H Immature Gran % (Auto) 0.6 H Neut % (Auto) 56.8 Lymph % (Auto) 30.9 [place] % (Auto) 7.8 Eos % (Auto) 3.2 Baso % (Auto) 0.7 Lymph # (Auto) 2.21 [place] # (Auto) 0.6 Eos # (Auto) 0.2 Baso # (Auto) 0.1 Abs Immat Gran (auto) 0.04 H Absolute Neuts (auto) 4.1 Absolute Nucleated RBC 0.000 Nucleated RBC % 0.0 Sodium 136 L Potassium 4.2 Chloride 103 Carbon Dioxide 26 Anion Gap 7 BUN 15 Creatinine 1.30 H Estim Creat Clear Calc Not Reportable Estimated GFR 39 L Glucose 126 H Lactic Acid 1.4 Calcium 9.3 Magnesium 2.1 Total Bilirubin 0.6 AST 21 ALT 11 Alkaline Phosphatase 78 Total Protein 7.0 Albumin 3.5 Quality VTE Prophylaxis VTE prophylaxis: pharmacologic ordered (on Eliquis ) Hospitalist MIPS Advance Care Plan I have confirmed that the patient's Advanced Care Plan is present, code status is documented, or surrogate decision maker is listed in patient medical record.: Yes Medication Reconciliation I have utilized all available resources to obtain, update and review the patients current medications (includes all prescriptions, OTC, herbals, cannabis, and nutritional supplements).: Yes
--- NOTE | 2024-06-04 11:47 | P.CONCA_ITS ---
Assessment and Plan Assessment and plan (1) Atrial fibrillation with controlled ventricular rate: Code(s): I48.91 - Unspecified atrial fibrillation Status: Acute Plan this is an 84-year-old lady with symptomatic paroxysmal atrial fibrillation she has had 2 emergency room visits and hospitalizations recently with symptomatic recurrences of this arrhythmia despite a higher dose of sotalol. When she is in sinus rhythm she was concerning Danae bradycardic this morning and so her medication has been placed on hold. Because of the fact that the patient has had recent symptomatic recurrences and frequent ER visits I believe we should transition her from sotalol to amiodarone. Had a discussion with the patient and her family about this in the room and they are in agreement. Will discontinue the sotalol and start amiodarone this evening 400 mg q.12 hours for initial loading dose. I would anticipate her being in the hospital for a few days as we transition medication. Freddie Velasco MD [facility] History of Present Illness History of Present Illness Consult date/time: 06/04/24 11:47 Reason For Visit: afib with rapid ventricular response Narrative: this is a an 84-year-old woman that I know from outpatient follow-up with history of atrial fibrillation who I am seeing at the request of the hospitalist for assistance with management of her arrhythmia. The patient entered the hospital 2 days ago with a symptomatic recurrence of her arrhythmia with palpit ations and feelings of generalized weakness. The patient has a history of paroxysmal atrial fib dating back to 2019. She is not known to have coronary disease or left ventricular dysfunction. She had she does have mild to moderate aortic valve regurgitation which is not resulted in any left ventricular dysfunction. Over the last couple of years she has been treated medically with sotalol which for the most part has been maintaining sinus rhythm. We did have to advance the dosage to 120 mg q.12 hours. Despite this she was in the hospital as recently as last month with a symptomatic recurrence of this and came back in to the hospital 2 days ago again with a symptomatic recurrence of palpitations and tachycardia. Other than the sense of palpitations and weakness she does not have any other complaints when she is in atrial fib such as shortness of breath chest pain lightheadedness or syncope. When she is in sinus rhythm she had times is bradycardic her morning dose of sotalol today is being held because of asymptomatic sinus bradycardia this morning with heart rate in the 40s. She is currently in sinus rhythm with a heart rate in the 60s. It also should be noted that in 2021 she had a hospitalization where she had a lung biopsy of right upper lobe nodule demonstrating adenocarcinoma which I believe was treated with radiation therapy. Review of Systems Constitutional: Constitutional: Reports lethargy Eyes: Eyes: Reports no additional eye complaints ENT: Reports system reviewed and no additional complaints, except as documented Cardiovascular: Cardiovascular: Reports palpitations Respiratory: Respiratory: Reports dyspnea on exertion Gastrointestinal: Gastrointestinal: Reports no additional gastrointestinal complaints Genitourinary: Genitourinary: Reports no additional female genitourinary complaints Musculoskeletal: Musculoskeletal: Reports no additional musculoskeletal complaints Integumentary/Breasts: Skin/Breast: Reports system reviewed and no additional complaints, except as docu Neurologic: Reports system reviewed and no additional complaints, except as documented Endocrine: Endocrine: Reports no additional endocrine complaints Hematologic/Lymphatic: Hematologic/Lymphatic: Reports no additional hematol ogic/lymphatic complaints Allergic/Immunologic: Allergic/Immunologic: Reports no additional allergic/immunologic complaints [facility] Past Medical History Medical History Anxiety Aortic valve regurgitation Moderate by echocardiogram in October 2018. Followed by Dr. Velasco. Arthritis Benzodiazepine dependence Bronchiectasis Prior imaging demonstrated bronchiectasis in bilateral lower lobes with chronic scarring. Chronic midline low back pain with sciatica Dementia Reported by daughter, however the patient disputes this. Depression Diverticulitis Gastroesophageal reflux disease Hyperlipidemia Hypertension Nausea Non-small cell carcinoma of lung Obstructive sleep apnea Paroxysmal atrial fibrillation She has declined anticoagulation and antiarrhythmics previously but is now on metoprolol daily. She is followed by Dr. Velasco. Surgical History Surgical History History of appendectomy History of cardiac catheterization No known intervention. History of cataract extraction History of cholecystectomy History of hysterectomy History of tooth extraction History of tubal ligation Family History Family History Father Acute myocardial infarction Family history of alcoholism Gout Tobacco abuse Mother Family history of alcoholism Sibling Acute myocardial infarction Heart disease Sibling Brain aneurysm Daughter Bowel perforation July 2020 sounds like it may have been a bowel perforation related to hernia and possibly some diabetic problems.. Daughter Heart disease age 35 of heart attack Acute myocardial infarction Daughter COVID-19 Cyst of breast Social History Social History Social History: Surrogate medical decision maker: Toshia Bliss, daughter. Code status: Modified code, no intubation. Smoking status: Never smoker Second hand tobacco smoke exposure: Yes Alcohol intake: never Substance use: never Substance use type: does not use Do You Feel Safe in your Home?: Yes Lack of Transportation: No Lack of Food: Never True Current Housing: I Have Housing Concerned About Future Housing: No Difficulty Paying Gas/Electric Bills: No Difficulty Paying for Meds: No Currently Unemployed: No Education: High School Diploma/GED Difficulty w/ Childcare or Family Care: No Additional living arrangements comments: . Had 3 daughters, 1 who from an CT at age 30 and other who passed from complications of diabetes. 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 Spiritual care concerns: No Agree to blood products: Yes Meds Home Medications and Allergies Home Medications Medication Instructions Recorded Confirmed Type aspirin 81 mg tablet,delayed 81 mg PO DAILY #90 tabs 12/02/19 06/02/24 Rx release (Adult Aspirin Regimen) melatonin 3 mg tablet 3 mg PO HS PRN Insomnia 10/31/21 06/02/24 History sotalol 80 mg tablet 120 mg PO BID 04/18/22 06/02/24 History albuterol sulfate 90 mcg/actuation 2 inh inhalation Q4H PRN shortness 12/23/23 06/02/24 Rx aerosol inhaler of breath or wheezing #6.7 grams tramadol 50 mg tablet 50 mg PO Q6H PRN pain #30 tabs 03/01/24 06/02/24 Rx furosemide 20 mg tablet 20 mg PO QAM #90 tabs 03/22/24 06/02/24 Rx losartan 100 mg tablet 100 mg PO DAILY #90 tabs 03/25/24 06/02/24 Rx alprazolam 0.5 mg tablet 0.5 mg PO TID PRN anxiety 30 days 05/06/24 06/02/24 Rx #75 tabs apixaban 5 mg tablet (Eliquis) 5 mg PO BID 06/02/24 06/02/24 History diclofenac sodium 1 % topical gel 1 ea topical DAILY 06/02/24 06/02/24 History lovastatin 20 mg tablet 20 mg PO DAILY 06/02/24 06/02/24 History omeprazole 20 mg capsule,delayed 20 mg PO DAILY 06/02/24 06/02/24 History release Allergies Allergy/AdvReac Type Severity Reaction Status Date / Time Penicillins Allergy Severe Hives Verified 06/02/24 23:46 gabapentin Allergy Intermediate Chest Pain Verified 06/02/24 23:46 nitrofurantoin Allergy Intermediate Hives Verified 06/02/24 23:46 [From Macrobid] Quinolones Allergy Mild Unknown Verified 06/02/24 23:46 cefprozil Allergy Unknown Unknown Verified 06/02/24 23:46 cefuroxime Allergy Unknown Unknown Verified 06/02/24 23:46 Cephalosporins Allergy Unknown Unknown Verified 06/02/24 23:46 gatifloxacin Allergy Unknown Unknown Verified 06/02/24 23:46 metronidazole Allergy Unknown Unknown Verified 06/02/24 23:46 fluoxetine [From Prozac] AdvReac Mild Dizziness Verified 06/02/24 23:46 erythromycin base AdvReac Unknown Stomach Verified 06/02/24 23:46 cramps loratadine [From Claritin] AdvReac Unknown Jittery Verified 06/02/24 23:46 Vital Signs Vital Signs - 24 hr 06/03/24 12:00 06/03/24 12:00 06/03/24 12:00 Temperature 36.4 C Pulse Rate 61 64 Respiratory Rate 18 Blood Pressure 178/60 H Pulse Oximetry 98 Oxygen Delivery Room Air 06/03/24 14:00 06/03/24 16:00 06/03/24 16:00 Temperature 36.6 C Pulse Rate 52 L 61 Respiratory Rate 16 Blood Pressure 186/49 H Pulse Oximetry 99 Oxygen Delivery Room Air 06/03/24 16:00 06/03/24 18:00 06/03/24 19:56 Temperature Pulse Rate 56 L 61 61 Respiratory Rate 16 Blood Pressure Pulse Oximetry 99 Oxygen Delivery Room Air 06/03/24 20:00 06/03/24 20:31 06/03/24 20:31 Temperature 36.8 C Pulse Rate 67 68 68 Respiratory Rate 16 Blood Pressure 156/57 H Pulse Oximetry 97 Oxygen Delivery 06/03/24 20:00 06/03/24 22:24 06/04/24 00:27 Temperature 36.9 C Pulse Rate 68 60 45 L Respiratory Rate 16 Blood Pressure 150/59 H Pulse Oximetry 96 Oxygen Delivery 06/04/24 00:00 06/04/24 00:00 06/04/24 02:00 Temperature Pulse Rate 45 L 46 L 45 L Respiratory Rate 16 Blood Pressure Pulse Oximetry 96 Oxygen Delivery Room Air 06/04/24 03:43 06/04/24 04:00 06/04/24 04:56 Temperature 36.6 C Pulse Rate 45 L 50 L 51 L Respiratory Rate 16 16 Blood Pressure 174/55 H Pulse Oximetry 96 98 Oxygen Delivery Room Air 06/04/24 06:00 06/04/24 08:00 06/04/24 09:44 Temperature 36.8 C Pulse Rate 54 L 58 L Respiratory Rate 12 Blood Pressure 181/52 H Pulse Oximetry 99 98 Oxygen Delivery Room Air 06/04/24 08:00 06/04/24 08:00 06/04/24 10:00 Temperature Pulse Rate 56 L 46 L Respiratory Rate Blood Pressure Pulse Oximetry Oxygen Delivery Room Air 06/04/24 10:58 Temperature Pulse Rate Respiratory Rate Blood Pressure Pulse Oximetry Oxygen Delivery Room Air Exam Const: General: comfortable and no acute distress Other: Pleasant very elderly lady talking with family and the telephone offers no complaints at this time HENMT: Face/Nose/Sinus: Normal nares present Mouth: Yes moist mucous membranes Eyes: Sclera: sclerae normal Neck: Neck: supple and no JVD Resp: Effort & Inspection: normal respiratory effort Auscultation: clear to auscultation bilaterally Cardio: Rate: regular rate Rhythm: regular rhythm GI: GI Palp: Yes Soft to palpation Auscultation: normal bowel sounds Skin: General skin exam: normal color Neuro: Other: alert and oriented x3 Extrem: Other: adequate perfusion, no edema Results Labs and Meds 06/04/24 04:53 06/04/24 04:53 Lab results: Cardiac Enzymes 06/04/24 Range/Units 04:53 AST 21 (14-36) U/L CBC 06/04/24 Range/Units 04:53 WBC 7.2 (4.5-10.0) K/mm3 RBC 3.98 L (4.2-5.4) M/mm3 Hgb 11.2 L (12.0-15.0) g/dL Hct 35.2 L (37.0-47.0) % Plt Count 192 (150-375) k/mm3 Lymph # (Auto) 2.21 (0.9-3.2) K/mm3 Gulf # (Auto) 0.6 (0.1-0.6) K/mm3 Eos # (Auto) 0.2 (0-0.3) K/mm3 Baso # (Auto) 0.1 (0.0-0.1) K/mm3 Comprehensive Metabolic Panel 06/04/24 Range/Units 04:53 Sodium 136 L (137-145) mmol/L Potassium 4.2 (3.4-5.0) mmol/L Chloride 103 (98-107) mmol/L Carbon Dioxide 26 (22-30) mmol/L BUN 15 (7-17) mg/dL Creatinine 1.30 H (0.7-1.0) mg/dL Glucose 126 H (65-110) mg/dL Calcium 9.3 (8.4-10.2) mg/dL AST 21 (14-36) U/L ALT 11 (6-35) U/L Alkaline Phosphatase 78 (38-126) U/L Total Protein 7.0 (6.3-8.2) g/dL Albumin 3.5 (3.5-5.1) g/dL Intake and Output 06/03/24 06/04/24 06/04/24 23:59 07:59 15:59 Intake Total 540 300 120 Output Total 300 Balance 240 300 120 Intake: Oral 540 300 120 Output: Urine 300 Other: # Unmeasured Voids 3 Patient Weight 06/04/24 23:59 Weight 69.9 kg
--- NOTE | 2024-06-04 18:14 | PC.NURSE ---
This patient, Chiara Faith, was received from imu on 06/04/24 at 1814. Patient/family oriented to unit policies and routines
--- NOTE | 2024-06-04 18:24 | PC.NURSE ---
Patient status changed to Med surg with tele monitoring. Nurse gave report to receiving nurse Perez at 1803. Patient moved to room 303 at 1815 via wheelchair with all belongings.
[2024-06-04] MEDS: AMIODARONE HCL 200 MG TABLET 400 MG PO (20:14)
[2024-06-04] MEDS: MELATONIN 3 MG TABLET PO (20:17)
[2024-06-05] VITALS (11 sets, daily range): BP systolic 110–130; BP diastolic 61–72; PULSE 74–120; RESP 14–20; TEMP 36.1–36.8; O2SAT 97–98
[2024-06-05 07:02] LABS: Hematocrit 38.4 % (37.0-47.0); Hemoglobin 12.2 g/dL (12.0-15.0); Mean Corpuscular HGB Conc 31.8 g/dl (32-36); Mean Corpuscular Volume 88.1 fl (80-100); Mean Platelet Volume 10.9 fl (7.4-10.4); Platelet Count Result 208 k/mm3 (150-375); Red Blood Count 4.36 M/mm3 (4.2-5.4); Red Cell Distribution Width 15.2 % (11.5-14.5); White Blood Count 7.7 K/mm3 (4.5-10.0)
[2024-06-05 07:28] LABS: Alanine Aminotransferase 11 U/L (6-35); Albumin Level 3.8 g/dL (3.5-5.1); Alkaline Phosphatase 70 U/L (38-126); Anion Gap 7 mmol/L (4-12); Aspartate Amino Transferase 23 U/L (14-36); Bilirubin,Total 0.7 mg/dL (0.2-1.3); Blood Urea Nitrogen 16 mg/dL (7-17); Calcium 8.8 mg/dL (8.4-10.2); Carbon Dioxide 27 mmol/L (22-30); Chloride 103 mmol/L (98-107); Estimated Glomerular Filt Rate 43; Glucose 134 mg/dL (65-110); Potassium 4.2 mmol/L (3.4-5.0); Sodium 137 mmol/L (137-145)
--- NOTE | 2024-06-05 08:37 | PM.PNCARD ---
Progress Note: A&P Assessment and Plan (1) Atrial fibrillation with controlled ventricular rate: Code(s): I48.91 - Unspecified atrial fibrillation Status: Acute Plan 1. PAF CHADSVASC 4 - Still in RVR - Continue amiodarone - Will give one dose of digoxin till amiodarone is loaded - Continue Eliquis 2. HTN On Losartan BP controlled 3. Hyperlipidemia On Lovastatin Subjective Date/time seen: 06/05/24 08:37 Interval history: No acute events overnight Rates have not been controlled Currently in Afib, rates > 130s No chest pain or dyspnea Review of Systems Constitutional: Constitutional: Reports lethargy Eyes: Eyes: Reports no additional eye complaints ENT: Reports system reviewed and no additional complaints, except as documented Cardiovascular: Cardiovascular: Reports palpitations and Reports dyspnea on exertion Respiratory: Respiratory: Reports dyspnea on exertion Gastrointestinal: Gastrointestinal: Reports no additional gastrointestinal complaints Genitourinary: Genitourinary: Reports no additional female genitourinary complaints Musculoskeletal: Musculoskeletal: Reports no additional musculoskeletal complaints Integumentary/Breasts: Skin/Breast: Reports system reviewed and no additional complaints, except as docu Neurologic: Reports system reviewed and no additional complaints, except as documented Endocrine: Endocrine: Reports no additional endocrine complaints and Reports palpitations Hematologic/Lymphatic: Hematologic/Lymphatic: Reports no additional hematologic/lymphatic complaints Allergic/Immunologic: Allergic/Immunologic: Reports no additional allergic/immunologic complaints Exam Const: General: comfortable and no acute distress Other: Pleasant very elderly lady talking with family and the telephone offers no complaints at this time HENMT: Face/Nose/Sinus: Normal nares present Mouth: Yes moist mucous membranes Eyes: Sclera: sclerae normal Neck: Neck: supple and no JVD Resp: Effort & Inspection: normal respiratory effort Auscultation: clear to auscultation bilaterally Cardio: Rate: regular rate Rhythm: regular rhythm GI: Auscultation: normal bowel sounds Skin: General skin exam: normal color Neuro: Other: alert and oriented x3 Extrem: Other: adequate perfusion, no edema Objective Data Vital Signs Vital Signs: Vital Signs - 24 hr 06/04/24 09:44 06/04/24 10:00 06/04/24 10:58 Temperature Pulse Rate 46 L Respiratory Rate Blood Pressure Pulse Oximetry 98 Oxygen Delivery Room Air Room Air 06/04/24 12:00 06/04/24 12:00 06/04/24 12:00 Temperature 36.5 C Pulse Rate 62 63 Respiratory Rate 20 Blood Pressure 145/61 H Pulse Oximetry 99 Oxygen Delivery Room Air 06/04/24 14:00 06/04/24 16:00 06/04/24 16:00 Temperature 36.6 C Pulse Rate 57 L 63 65 Respiratory Rate 20 Blood Pressure 153/58 H Pulse Oximetry 100 Oxygen Delivery 06/04/24 20:14 06/04/24 20:40 06/04/24 20:00 Temperature 36.2 C L Pulse Rate 65 92 112 H Respiratory Rate 16 Blood Pressure 152/98 H Pulse Oximetry 98 Oxygen Delivery 06/05/24 00:00 06/05/24 04:00 06/05/24 05:10 Temperature 36.8 C Pulse Rate 84 98 82 Respiratory Rate 16 Blood Pressure 110/71 Pulse Oximetry 98 Oxygen Delivery Intake/Output Intake/Output: Intake & Output 06/02/24 06/03/24 06/04/24 06/05/24 23:59 23:59 23:59 23:59 Intake Total 918.6 660 250 Output Total 300 Balance 618.6 660 250 Meds/Results Medications: Active Medications Generic Name Dose Route Start Last Admin Trade Name Freq PRN Reason Stop Dose Admin Albuterol 2 puff 06/03/24 01:05 Albuterol Sulfate (*Sp) Aerosol 1 Puff INHALATION Q4H PRN shortness of breath or wheezing Alprazolam 0.5 mg 06/03/24 01:05 06/04/24 20:17 Alprazolam (*Crx) 0.5 Mg Tablet PO 0.5 mg TID PRN Administration anxiety Amiodarone HCl 400 mg 06/04/24 21:00 06/04/24 20:14 Amiodarone Hcl 200 Mg Tablet PO 400 mg Q12H CYRIL Administration Amlodipine Besylate 2.5 mg 06/03/24 16:35 06/04/24 09:38 Amlodipine Besylate 2.5 Mg Tablet PO 2.5 mg QAM CYRIL Administration Apixaban 5 mg 06/03/24 09:00 06/04/24 20:14 Apixaban 5 Mg Tablet PO 5 mg Q12HR CYRIL Administration Aspirin 81 mg 06/03/24 09:00 06/04/24 09:38 Aspirin 81 Mg Enteric Tablet PO 81 mg DAILY CYRIL Administration Furosemide 20 mg 06/04/24 09:00 06/04/24 09:38 Furosemide 20 Mg Tablet PO 20 mg QAM CYRIL Administration Hydralazine HCl 10 mg 06/03/24 16:31 Hydralazine Hcl 20 Mg/Ml Vial IV PUSH Q4H PRN Blood Pressure - High Losartan Potassium 100 mg 06/03/24 09:00 06/04/24 09:39 Losartan Potassium 100 Mg Tablet PO 100 mg DAILY CYRIL Administration Lovastatin 20 mg 06/03/24 09:00 06/04/24 09:38 Lovastatin 20 Mg Tablet PO 20 mg DAILY CYRIL Administration Melatonin 3 mg 06/03/24 01:05 06/04/24 20:17 Melatonin 3 Mg Tablet PO 3 mg HS PRN Administration Insomnia Pantoprazole Sodium 40 mg 06/03/24 09:00 06/04/24 09:39 Pantoprazole 40 Mg Tablet PO 40 mg QAM CYRIL Administration Tramadol HCl 50 mg 06/03/24 01:05 06/03/24 20:32 Tramadol Hcl (*Crx) 50 Mg Tablet PO 50 mg Q6H PRN Administration pain Radiology Results: ITS Impressions Chest X-Ray 06/02/24 19:47 IMPRESSION: No acute cardiopulmonary process. Foot X-Ray 06/02/24 21:17 IMPRESSION: No acute osseous finding in the right foot. Labs Labs: Laboratory Results - last 24 hr 06/05/24 06:18 WBC 7.7 RBC 4.36 Hgb 12.2 Hct 38.4 MCV 88.1 MCH 28.0 MCHC 31.8 L RDW 15.2 H Plt Count 208 MPV 10.9 H Sodium 137 Potassium 4.2 Chloride 103 Carbon Dioxide 27 Anion Gap 7 BUN 16 Creatinine 1.20 H Estim Creat Clear Calc Not Reportable Estimated GFR 43 L Glucose 134 H Calcium 8.8 Total Bilirubin 0.7 AST 23 ALT 11 Alkaline Phosphatase 70 Total Protein 7.0 Albumin 3.8
[2024-06-05] MEDS: AMIODARONE HCL 200 MG TABLET 400 MG PO ×2 (08:52→20:40)
[2024-06-05] MEDS: FUROSEMIDE 20 MG TABLET PO (08:53)
[2024-06-05] MEDS: amLODIPine BESYLATE 2.5 MG TABLET PO (08:53)
[2024-06-05] MEDS: PANTOPRAZOLE 40 MG TABLET PO (08:53)
[2024-06-05] MEDS: LOVASTATIN 20 MG TABLET PO (08:53)
[2024-06-05] MEDS: APIXABAN 5 MG TABLET PO ×2 (08:53→20:40)
[2024-06-05] MEDS: ASPIRIN 81 MG ENTERIC TABLET PO (08:53)
[2024-06-05] MEDS: LOSARTAN POTASSIUM 100 MG TABLET PO (08:53)
[2024-06-05] MEDS: ALPRAZolam (*CRX) 0.5 MG TABLET PO ×2 (08:56→20:39)
--- NOTE | 2024-06-05 12:29 | PM.IMPN ---
Progress Note: A&P Assessment and Plan (1) Atrial fibrillation with rapid ventricular response: Code(s): I48.91 - Unspecified atrial fibrillation Status: Resolved Assessment and Plan: continue Eliquis and dc sotolol Cont amiodorone 400 mg PO QD Possible cardioversion tomorrow Monitor overnight (2) CKD (chronic kidney disease) stage 3, GFR 30-59 ml/min: Code(s): N18.3 - Chronic kidney disease, stage 3 (moderate) Status: Acute Assessment and Plan: CONTINUE TO MONITOR (3) Chronic combined systolic and diastolic congestive heart failure: Code(s): I50.42 - Chronic combined systolic (congestive) and diastolic (congestive) heart failure Status: Acute Assessment and Plan: euvolemic and continue home meds (4) Obstructive sleep apnea: Code(s): G47.33 - Obstructive sleep apnea (adult) (pediatric) Status: Acute Assessment and Plan: CPAP AT NIGHTTIME (5) GERD (gastroesophageal reflux disease): Code(s): K21.9 - Gastro-esophageal reflux disease without esophagitis Status: Acute Assessment and Plan: PPI Subjective Date/time seen: 06/05/24 12:29 Interval history: Discussed the case with Cardiology. Patient still in HR 130's. Will add digoxin if that doesnt work possible Cardioversion tomorrow. Review of Systems Review of Systems: PALPITATIONS, LIGHTHEADEDNESS, DIZZINESS Exam Narrative: General: alert and comfortable Eyes: EOMI, PERRLA ENNT External ears normal, Neck is supple, no masses, Respiratory systems: Clear to auscultation Cardiovascular S1, S2, normal rhythm, no murmur, rub, or gallop; no thrill or palpable murmurs on palpation. Gastrointestinal: soft, non-tender, and non-distended abdomen with no masses; BS present Skin: no rash, lesions, ulcerations, subcutaneous nodules or induration Musculoskeletal: no abnormality and no tenderness, normal ROM Neurologic: Alert and oriented x3, non focal Mental Status Exam: normal affect Const: General: comfortable, no acute distress, well developed, alert, awake and average body habitus Nutritional Appearance: average body habitus Orientation/consciousness: patient oriented x3 Other: WELL-APPEARING HENMT: Head: normal to inspection, normocephalic and atraumatic Ears: hearing grossly normal bilaterally Face/Nose/Sinus: normal facial exam Face and sinus: normal facial exam Eyes: General: appearance normal, both eyes and all related structures Pupils: Equal, round and reactive pupils present EOM: EOMs intact bilaterally Neck: Neck: full ROM, no lymphadenopathy and no JVD Thyroid: thyroid normal Lymphatic: no lymphadenopathy noted Resp: Effort & Inspection: normal respiratory effort and able to speak in complete sentences Auscultation: clear to auscultation bilaterally Cardio: Jugular venous distension: no JVD Rate: regular rate Rhythm: abnormal rhythm irregularly irregular Heart sounds: S1 normal heart sound present and S2 normal heart sound present : General: Yes deferred Skin: Rashes: no rashes Wounds: no wounds Neuro: General: patient oriented x3, CN's II-XI intact bilaterally and Unable to assess gait Cranial nerves: Yes CN's II-XII intact bilaterally and Yes Equal, round and reactive pupils present Cognition (Neuro): normal cognition Speech: normal speech Gait exam (Neuro): Unable to assess gait Motor exam (neuro): 5/5 motor strength present throughout Extrem: General: normal to inspection, full ROM, no joint enlargement and no pedal edema Objective Data Vital Signs Vital Signs: Vital Signs - 24 hr 06/04/24 14:00 06/04/24 16:00 06/04/24 16:00 Temperature 97.9 F Pulse Rate 57 L 63 65 Respiratory Rate 20 Blood Pressure 153/58 H Pulse Oximetry 100 06/04/24 20:14 06/04/24 20:40 06/04/24 20:00 Temperature 97.1 F L Pulse Rate 65 92 112 H Respiratory Rate 16 Blood Pressure 152/98 H Pulse Oximetry 98 06/05/24 00:00 06/05/24 04:00 06/05/24 05:10 Temperature 98.3 F Pulse Rate 84 98 82 Respiratory Rate 16 Blood Pressure 110/71 Pulse Oximetry 98 06/05/24 08:52 Temperature Pulse Rate 120 H Respiratory Rate Blood Pressure Pulse Oximetry Intake/Output Intake/Output: Intake & Output 06/02/24 06/03/24 06/04/24 06/05/24 23:59 23:59 23:59 23:59 Intake Total 918.6 660 962 Output Total 300 Balance 618.6 660 962 Meds/Results Medications: Active Medications Generic Name Dose Route Start Last Admin Trade Name Freq PRN Reason Stop Dose Admin Albuterol 2 puff 06/03/24 01:05 Albuterol Sulfate (*Sp) Aerosol 1 Puff INHALATION Q4H PRN shortness of breath or wheezing Alprazolam 0.5 mg 06/03/24 01:05 06/05/24 08:56 Alprazolam (*Crx) 0.5 Mg Tablet PO 0.5 mg TID PRN Administration anxiety Amiodarone HCl 400 mg 06/04/24 21:00 06/05/24 08:52 Amiodarone Hcl 200 Mg Tablet PO 400 mg Q12H CYRIL Administration Amlodipine Besylate 2.5 mg 06/03/24 16:35 06/05/24 08:53 Amlodipine Besylate 2.5 Mg Tablet PO 2.5 mg QAM CYRIL Administration Apixaban 5 mg 06/03/24 09:00 06/05/24 08:53 Apixaban 5 Mg Tablet PO 5 mg Q12HR CYRIL Administration Aspirin 81 mg 06/03/24 09:00 06/05/24 08:53 Aspirin 81 Mg Enteric Tablet PO 81 mg DAILY CYRIL Administration Furosemide 20 mg 06/04/24 09:00 06/05/24 08:53 Furosemide 20 Mg Tablet PO 20 mg QAM CYRIL Administration Hydralazine HCl 10 mg 06/03/24 16:31 Hydralazine Hcl 20 Mg/Ml Vial IV PUSH Q4H PRN Blood Pressure - High Losartan Potassium 100 mg 06/03/24 09:00 06/05/24 08:53 Losartan Potassium 100 Mg Tablet PO 100 mg DAILY CYRIL Administration Lovastatin 20 mg 06/03/24 09:00 06/05/24 08:53 Lovastatin 20 Mg Tablet PO 20 mg DAILY CYRIL Administration Melatonin 3 mg 06/03/24 01:05 06/04/24 20:17 Melatonin 3 Mg Tablet PO 3 mg HS PRN Administration Insomnia Pantoprazole Sodium 40 mg 06/03/24 09:00 06/05/24 08:53 Pantoprazole 40 Mg Tablet PO 40 mg QAM CYRIL Administration Tramadol HCl 50 mg 06/03/24 01:05 06/03/24 20:32 Tramadol Hcl (*Crx) 50 Mg Tablet PO 50 mg Q6H PRN Administration pain Radiology Results: ITS Impressions Chest X-Ray 06/02/24 19:47 IMPRESSION: No acute cardiopulmonary process. Foot X-Ray 06/02/24 21:17 IMPRESSION: No acute osseous finding in the right foot. Labs Labs: Laboratory Results - last 24 hr 06/05/24 06:18 WBC 7.7 RBC 4.36 Hgb 12.2 Hct 38.4 MCV 88.1 MCH 28.0 MCHC 31.8 L RDW 15.2 H Plt Count 208 MPV 10.9 H Sodium 137 Potassium 4.2 Chloride 103 Carbon Dioxide 27 Anion Gap 7 BUN 16 Creatinine 1.20 H Estim Creat Clear Calc Not Reportable Estimated GFR 43 L Glucose 134 H Calcium 8.8 Total Bilirubin 0.7 AST 23 ALT 11 Alkaline Phosphatase 70 Total Protein 7.0 Albumin 3.8 Hospitalist MIPS Advance Care Plan I have confirmed that the patient's Advanced Care Plan is present, code status is documented, or surrogate decision maker is listed in patient medical record.: Yes Medication Reconciliation I have utilized all available resources to obtain, update and review the patients current medications (includes all prescriptions, OTC, herbals, cannabis, and nutritional supplements).: Yes
--- NOTE | 2024-06-05 13:23 | PCOTNOTE ---
Attempted to see pt. for occupational therapy evaluation. Per nursing, pt. HR to high to participate safely at this time.
[2024-06-05] MEDS: DIGOXIN INJ 250 MCG/ML 2 ML AMP (*BKC) 500 MCG IV PUSH (14:48)
[2024-06-05] MEDS: polyethylene glycoL 3350 17 GM POWD.PACK PO (18:07)
[2024-06-05] MEDS: DIGOXIN INJ 250 MCG/ML 2 ML AMP (*BKC) IV PUSH (20:40)
[2024-06-05] MEDS: MELATONIN 3 MG TABLET PO (20:40)
[2024-06-06] VITALS: PULSE 82
[2024-06-06] MEDS: traMADol HCL (*CRX) 50 MG TABLET PO (00:50)
[2024-06-06 04:00] VITALS: PULSE 89
[2024-06-06 05:27] VITALS: BP 137/66; PULSE 70; RESP 16; TEMP 36.6; O2SAT 98
[2024-06-06 08:00] VITALS: PULSE 122
[2024-06-06] MEDS: amLODIPine BESYLATE 2.5 MG TABLET PO (08:05)
[2024-06-06] MEDS: APIXABAN 5 MG TABLET PO (08:05)
[2024-06-06] MEDS: LOSARTAN POTASSIUM 100 MG TABLET PO (08:05)
[2024-06-06] MEDS: PANTOPRAZOLE 40 MG TABLET PO (08:05)
[2024-06-06] MEDS: FUROSEMIDE 20 MG TABLET PO (08:05)
[2024-06-06] MEDS: ASPIRIN 81 MG ENTERIC TABLET PO (08:05)
[2024-06-06 08:06] VITALS: PULSE 105
[2024-06-06] MEDS: AMIODARONE HCL 200 MG TABLET 400 MG PO (08:06)
[2024-06-06] MEDS: LOVASTATIN 20 MG TABLET PO (08:06)
[2024-06-06] MEDS: ALPRAZolam (*CRX) 0.5 MG TABLET PO (08:12)
[2024-06-06 08:46] LABS: Hematocrit 42.1 % (37.0-47.0); Hemoglobin 13.2 g/dL (12.0-15.0); Mean Corpuscular HGB Conc 31.4 g/dl (32-36); Mean Corpuscular Hemoglobin 27.9 pg (26-34); Mean Platelet Volume 10.5 fl (7.4-10.4); Platelet Count Result 260 k/mm3 (150-375); Red Blood Count 4.73 M/mm3 (4.2-5.4); Red Cell Distribution Width 15.3 % (11.5-14.5); White Blood Count 9.4 K/mm3 (4.5-10.0)
[2024-06-06 09:03] LABS: Alanine Aminotransferase 13 U/L (6-35); Albumin Level 4.2 g/dL (3.5-5.1); Alkaline Phosphatase 93 U/L (38-126); Anion Gap 11 mmol/L (4-12); Aspartate Amino Transferase 24 U/L (14-36); Bilirubin,Total 0.9 mg/dL (0.2-1.3); Blood Urea Nitrogen 19 mg/dL (7-17); Calcium 9.4 mg/dL (8.4-10.2); Carbon Dioxide 23 mmol/L (22-30); Chloride 102 mmol/L (98-107); Estimated Glomerular Filt Rate 33; Glucose 161 mg/dL (65-110); Potassium 4.1 mmol/L (3.4-5.0); Sodium 136 mmol/L (137-145)
--- NOTE | 2024-06-06 09:17 | P.PNCA_ITS ---
Progress Note: A&P Assessment and Plan (1) Atrial fibrillation with controlled ventricular rate: Code(s): I48.91 - Unspecified atrial fibrillation Status: Acute Plan 84-year-old lady with symptomatic paroxysmal atrial fibrillation Suhail's of the arrhythmia despite a higher dose of sotalol. She has been transition to loading dose of amiodarone 2 days ago. She has persisting in atrial fibrillation but is well rate controlled and is hemodynamically stable. There were plans discussed yesterday to consider DC cardioversion today. I would prefer to continue this patient on a loading dose of amiodarone for a longer period of time as an outpatient as this could certainly result in faith of sinus rhythm as she takes amiodarone longer. The half life of this drug is very long and I would like to avoid repeatedly electrically cardioverting this elderly lady. I will stop her amlodipine since she does not need that for blood pressure control and the dosage is very low. I will see her in the office for follow-up in 2 weeks and consider weaning down her amiodarone dosage and she will be considered a candidate for DC cardioversion if she is persisting in AFib after taking amiodarone for at least 4 weeks. Explained to the patient and her daughter who was in the room that she is being discharged in atrial fibrillation although she is stable if he senses her heart rate being irregular she does not have to come back to the emergency department for this reason alone. Freddie Velasco MD [facility] Subjective Date/time seen: Date of service: 06/06/24 09:17 Interval history: Follow-up visit in this 84-year-old lady with paroxysmal, recurrent atrial fibrillation. She feels relatively well this morning a bit lightheaded when upon arising but no other symptoms. When she is at rest she does notice, is aware of her irregular pulse. Heart rate is very well controlled at this time and no hemodynamic concerns. Exam Const: General: comfortable and no acute distress Other: Pleasant elderly lady no distress HENMT: Mouth: Yes moist mucous membranes Eyes: Sclera: sclerae normal Neck: Neck: supple and no JVD Resp: Effort & Inspection: normal respiratory effort Auscultation: clear to auscultation bilaterally Cardio: Rate: regular rate Rhythm: abnormal rhythm irregularly irregular GI: GI Palp: Yes Soft to palpation Auscultation: normal bowel sounds Skin: General skin exam: normal color Neuro: Other: Alert and oriented x3 Extrem: Other: No edema, good distal pulse Objective Data Vital Signs Vital Signs: Vital Signs - 24 hr 06/05/24 14:48 06/05/24 16:00 06/05/24 12:00 Temperature 36.6 C Pulse Rate 106 H 75 100 Respiratory Rate 20 Blood Pressure 115/61 Pulse Oximetry 97 06/05/24 16:00 06/05/24 20:40 06/05/24 20:40 Temperature Pulse Rate 98 111 H 111 H Respiratory Rate Blood Pressure Pulse Oximetry 06/05/24 21:45 06/05/24 20:00 06/06/24 00:00 Temperature 36.1 C L Pulse Rate 74 94 82 Respiratory Rate 14 Blood Pressure 130/72 Pulse Oximetry 98 06/06/24 04:00 06/06/24 05:27 06/06/24 08:06 Temperature 36.6 C Pulse Rate 89 70 105 H Respiratory Rate 16 Blood Pressure 137/66 Pulse Oximetry 98 Intake/Output Intake/Output: Intake & Output 06/03/24 06/04/24 06/05/24 06/06/24 23:59 23:59 23:59 23:59 Intake Total 918.6 660 1442 350 Output Total 300 Balance 618.6 660 1442 350 Meds/Results Medications: Active Medications Generic Name Dose Route Start Last Admin Trade Name Freq PRN Reason Stop Dose Admin Albuterol 2 puff 06/03/24 01:05 Albuterol Sulfate (*Sp) Aerosol 1 Puff INHALATION Q4H PRN shortness of breath or wheezing Alprazolam 0.5 mg 06/03/24 01:05 06/06/24 08:12 Alprazolam (*Crx) 0.5 Mg Tablet PO 0.5 mg TID PRN Administration anxiety Amiodarone HCl 400 mg 06/04/24 21:00 06/06/24 08:06 Amiodarone Hcl 200 Mg Tablet PO 400 mg Q12H CYRIL Administration Apixaban 5 mg 06/03/24 09:00 06/06/24 08:05 Apixaban 5 Mg Tablet PO 5 mg Q12HR CYRIL Administration Aspirin 81 mg 06/03/24 09:00 06/06/24 08:05 Aspirin 81 Mg Enteric Tablet PO 81 mg DAILY CYRIL Administration Furosemide 20 mg 06/04/24 09:00 06/06/24 08:05 Furosemide 20 Mg Tablet PO 20 mg QAM CYRIL Administration Hydralazine HCl 10 mg 06/03/24 16:31 Hydralazine Hcl 20 Mg/Ml Vial IV PUSH Q4H PRN Blood Pressure - High Losartan Potassium 100 mg 06/03/24 09:00 06/06/24 08:05 Losartan Potassium 100 Mg Tablet PO 100 mg DAILY CYRIL Administration Lovastatin 20 mg 06/03/24 09:00 06/06/24 08:06 Lovastatin 20 Mg Tablet PO 20 mg DAILY CYRIL Administration Melatonin 3 mg 06/03/24 01:05 06/05/24 20:40 Melatonin 3 Mg Tablet PO 3 mg HS PRN Administration Insomnia Pantoprazole Sodium 40 mg 06/03/24 09:00 06/06/24 08:05 Pantoprazole 40 Mg Tablet PO 40 mg QAM CYRIL Administration Polyethylene Glycol 17 gm 06/05/24 18:00 06/06/24 08:07 Polyethylene Glycol 3350 17 Gm Powd.Pack PO Not Given QAM CYRIL Tramadol HCl 50 mg 06/03/24 01:05 06/06/24 00:50 Tramadol Hcl (*Crx) 50 Mg Tablet PO 50 mg Q6H PRN Administration pain Radiology Results: ITS Impressions Chest X-Ray 06/02/24 19:47 IMPRESSION: No acute cardiopulmonary process. Foot X-Ray 06/02/24 21:17 IMPRESSION: No acute osseous finding in the right foot. Labs Labs: Laboratory Results - last 24 hr 06/06/24 08:26 WBC 9.4 RBC 4.73 Hgb 13.2 Hct 42.1 MCV 89.0 MCH 27.9 MCHC 31.4 L RDW 15.3 H Plt Count 260 MPV 10.5 H Sodium 136 L Potassium 4.1 Chloride 102 Carbon Dioxide 23 Anion Gap 11 BUN 19 H Creatinine 1.50 H Estim Creat Clear Calc Not Reportable Estimated GFR 33 L Glucose 161 H Calcium 9.4 Total Bilirubin 0.9 AST 24 ALT 13 Alkaline Phosphatase 93 Total Protein 8.0 Albumin 4.2
--- NOTE | 2024-06-06 11:36 | PM.DS ---
DS: Admitting Diagnosis Discharge Date 06/06/2024 Admitting Diagnosis a.fibrillation DS: Discharge Diagnosis Discharge Diagnosis (1) Atrial fibrillation with rapid ventricular response: Code(s): I48.91 - Unspecified atrial fibrillation Status: Resolved Assessment and Plan: continue Eliquis and dc sotolol Cont amiodorone 400 mg PO QD Possible cardioversion tomorrow Monitor overnight (2) CKD (chronic kidney disease) stage 3, GFR 30-59 ml/min: Code(s): N18.3 - Chronic kidney disease, stage 3 (moderate) Status: Acute Assessment and Plan: CONTINUE TO MONITOR (3) Chronic combined systolic and diastolic congestive heart failure: Code(s): I50.42 - Chronic combined systolic (congestive) and diastolic (congestive) heart failure Status: Acute Assessment and Plan: euvolemic and continue home meds (4) Obstructive sleep apnea: Code(s): G47.33 - Obstructive sleep apnea (adult) (pediatric) Status: Acute Assessment and Plan: CPAP AT NIGHTTIME (5) GERD (gastroesophageal reflux disease): Code(s): K21.9 - Gastro-esophageal reflux disease without esophagitis Status: Acute Assessment and Plan: PPI DS: Summary Hospital Course Hospital Course: 84-year-old lady with symptomatic paroxysmal atrial fibrillation despite a higher dose of sotalol. She has been transition to loading dose of amiodarone 2 days ago. She has persisting in atrial fibrillation but is well rate controlled and is hemodynamically stable. There were plans discussed yesterday to consider DC cardioversion today. Cardiology would prefer to continue this patient on a loading dose of amiodarone for a longer period of time as an outpatient as this could certainly result in yarsani of sinus rhythm as she takes amiodarone longer. The half life of this drug is very long and would like to avoid repeatedly electrically cardioverting . Cardiology also stopped amlodipine since she does not need that for blood pressure control and the dosage is very low. will see her in the office for follow-up in 2 weeks and consider weaning down her amiodarone dosage and she will be considered a candidate for DC cardioversion if she is persisting in AFib after taking amiodarone for at least 4 weeks. cardiology also explained to the patient and her daughter who was in the room that she is being discharged in atrial fibrillation although she is stable if he senses her heart rate being irregular she does not have to come back to the emergency department for this reason alone. Status at Discharge Cognitive/behavioral status at discharge: Stable Time Spent with Patient Time attestation: Total time spent providing and/or coordinating discharge services: 45 minutes Exam Narrative: General: alert and comfortable Eyes: EOMI, PERRLA ENNT External ears normal, Neck is supple, no masses, Respiratory systems: Clear to auscultation Cardiovascular S1, S2, normal rhythm, no murmur, rub, or gallop; no thrill or palpable murmurs on palpation. Gastrointestinal: soft, non-tender, and non-distended abdomen with no masses; BS present Skin: no rash, lesions, ulcerations, subcutaneous nodules or induration Musculoskeletal: no abnormality and no tenderness, normal ROM Neurologic: Alert and oriented x3, non focal Mental Status Exam: normal affect Const: General: comfortable, no acute distress, well developed, alert, awake and average body habitus Nutritional Appearance: average body habitus Orientation/consciousness: patient oriented x3 Other: WELL-APPEARING HENMT: Head: normal to inspection, normocephalic and atraumatic Ears: hearing grossly normal bilaterally Face/Nose/Sinus: normal facial exam Face and sinus: normal facial exam Eyes: General: appearance normal, both eyes and all related structures Pupils: Equal, round and reactive pupils present EOM: EOMs intact bilaterally Neck: Neck: full ROM, no lymphadenopathy and no JVD Thyroid: thyroid normal Lymphatic: no lymphadenopathy noted Resp: Effort & Inspection: normal respiratory effort and able to speak in complete sentences Auscultation: clear to auscultation bilaterally Cardio: Jugular venous distension: no JVD Rate: regular rate Rhythm: abnormal rhythm irregularly irregular Heart sounds: S1 normal heart sound present and S2 normal heart sound present : General: Yes deferred Skin: Rashes: no rashes Wounds: no wounds Neuro: General: patient oriented x3, CN's II-XI intact bilaterally and Unable to assess gait Cranial nerves: Yes CN's II-XII intact bilaterally and Yes Equal, round and reactive pupils present Cognition (Neuro): normal cognition Speech: normal speech Gait exam (Neuro): Unable to assess gait Motor exam (neuro): 5/5 motor strength present throughout Extrem: General: normal to inspection, full ROM, no joint enlargement and no pedal edema DS: Data Data Completed and Pending Labs on day of discharge: Labs from last 24 hours 06/06/24 08:26 WBC 9.4 RBC 4.73 Hgb 13.2 Hct 42.1 MCV 89.0 MCH 27.9 MCHC 31.4 L RDW 15.3 H Plt Count 260 MPV 10.5 H Sodium 136 L Potassium 4.1 Chloride 102 Carbon Dioxide 23 Anion Gap 11 BUN 19 H Creatinine 1.50 H Estim Creat Clear Calc Not Reportable Estimated GFR 33 L Glucose 161 H Calcium 9.4 Total Bilirubin 0.9 AST 24 ALT 13 Alkaline Phosphatase 93 Total Protein 8.0 Albumin 4.2 Discharge Plan Discharge Attending physician on discharge: Aditya Bhakta Consulting providers: Freddie Velasco Discharging Clinician: Aditya Bhakta Anticipated Discharge Date/Time: 06/06/24 11:22 Patient Disposition: Home Health Service Activity: as tolerated Diet: regular Discharge Instructions: Per Care Coordination Patient has been accepted to have [facility] for RN, PT, [phone] RN please fax completed discharge instructions to [phone] follow-up in 2 weeks and for weaning down amiodarone dosage Patient Instructions: Antibiotic Form, Apixaban (By mouth), Heart Failure (DC), A-fib (Atrial Fibrillation) (GEN), Pain Management (DC) Stand Alone Forms: General Discharge Information Follow-up/Referrals: Freddie Velasco MD [Physician] - 1 Week ( follow-up in 2 weeks and for weaning down amiodarone dosage ) Ulises Guido MD [Primary Care Provider] - 1 Week Discharge Medications: New polyethylene glycol 3350 [Miralax] 17 gram Powder In Packet 17 g PO QAM Qty: 30 0RF amiodarone [Pacerone] 200 mg Tablet 400 mg PO Q12H Qty: 30 0RF Continued tramadol 50 mg tablet 50 mg PO Q6H PRN (Reason: pain) Qty: 30 0RF omeprazole 20 mg capsule,delayed release(DR/EC) 20 mg PO DAILY lovastatin 20 mg tablet 20 mg PO DAILY diclofenac sodium 1 % gel 1 ea topical DAILY Rx Instructions: apply to bilateral legs Eliquis 5 mg tablet 5 mg PO BID melatonin 3 mg Tablet 3 mg PO HS PRN (Reason: Insomnia) aspirin [Adult Aspirin Regimen] 81 mg tablet,delayed release (DR/EC) 81 mg PO DAILY Qty: 90 0RF albuterol sulfate 90 mcg/actuation HFA aerosol inhaler 2 inh INHALATION Q4H PRN (Reason: shortness of breath or wheezing) Qty: 6.7 11RF furosemide 20 mg tablet 20 mg PO QAM Qty: 90 1RF losartan 100 mg tablet 100 mg PO DAILY Qty: 90 1RF Rx Instructions: TAKE 1 TABLET BY MOUTH EVERY DAY IN THE MORNING alprazolam 0.5 mg tablet 0.5 mg PO TID PRN (Reason: anxiety) 30 Days Qty: 75 1RF Discontinued sotalol 80 mg tablet 120 mg PO BID Date of admission: 06/04/24 14:27 Primary Care Provider: Ulises Guido Admitting Provider: Joy Fisher V. Attending physician on admission: Joy Fisher V. Condition: Stable
--- NOTE | 2024-06-07 09:38 | PC.NURSE ---
Patient called with questions regarding whether she could take cough syrup with her current medications ordered. This RN advised patient to call primary care provider to confirm any medications added on or changes. Patient voiced understanding.
== END 2024-06-06 11:45 | disposition home health service (06) | DRG 309 ==
LOC: ANHED 21:35 → ANHIMU 23:33 → ANH3MEDSUR 06-04 18:20
PROVIDERS: Internal Medicine; Admitting Provider Internal Medicine; Emergency Provider Emergency Medicine; PCP Family Medicine; Visit Provider General Practice
DX: I48.0 Paroxysmal atrial fibrillation (principal); I13.0 Hypertensive heart and chronic kidney disease with heart failure and stage 1 through stage 4 chronic kidney disease, or unspecified chronic kidney disease; I50.42 Chronic combined systolic (congestive) and diastolic (congestive) heart failure; I35.1 Nonrheumatic aortic (valve) insufficiency; E78.5 Hyperlipidemia, unspecified; G47.33 Obstructive sleep apnea (adult) (pediatric); K21.9 Gastro-esophageal reflux disease without esophagitis; N18.30 Chronic kidney disease, stage 3 unspecified; Z99.89 Dependence on other enabling machines and devices; Z85.118 Personal history of other malignant neoplasm of bronchus and lung; Z90.49 Acquired absence of other specified parts of digestive tract; Z79.01 Long term (current) use of anticoagulants; Z79.82 Long term (current) use of aspirin
CPT/HCPCS: 36415; 71045; 73630; 80053; 81001; 83605; 83690; 83735; 83880; 84484; 85025; 85027; 85610; 85730; 87086; 93005; 96365; 96366; 97161; 99285; A9270; G0378; J1160

== ENCOUNTER 2024-10-03 13:40 | Emergency (ER) | payer MEDICARE, SELFPAY ==
--- NOTE | ~2024-10-03 | XR_ITS ---
XR chest 2V 10/03/2024 15:53 Indication: Cough and congestion Procedure: 2 view chest Comparison: Comparison to multiple prior studies sequentially, with oldest reviewed study dated 01/23/2024. Findings: Stable bandlike right upper lobe opacity. Stable interstitial infiltrates of the lung bases . Heart size normal. There is atherosclerosis and ectasia of the aorta. The there is dextroscoliosis. There is moderate thoracic spondylosis. No acute focal pneumonia, edema or pneumothorax. No pleural effusion. Impression: 1: No acute cardiopulmonary disease. Reviewed, dictated and finalized at location B. LASTIC APTITUDE TEST GRADER Impression: 1: No acute cardiopulmonary disease.
[2024-10-03 13:43] VITALS: BP 151/71; PULSE 87; RESP 16; TEMP 36.7; O2SAT 98
--- OUTSIDE RECORDS SUMMARY | 2024-10-03 13:47 | XMS_ITS | Clinical Summary ---
Author Organization [facility] marie [facility] Address [address] [place] [address] Care Team Providers Care Software Implementation Project Manager Name Role Phone Ulises Guido MD Primary Care Provider Allergies Active Allergy Reactions Criticality Noted Date Comments Cephalosporins Unknown 08/19/2021 Erythromycin Muscle Pain Medium 04/12/2017 Muscle cramps Metronidazole Unknown 08/19/2021 Penicillins Hives High 08/19/2021 Quinolones Unknown 08/19/2021 Medications albuterol sulfate 90 mcg/Actuation inhaler INHALE 2 PUFFS BY MOUTH EVERY 4 HOURS NEEDED FOR SHORTNESS OF BREATH OR WHEEZING 1 Active citalopram (CeleXA) 20 mg tablet 0 Active diltiaZEM (Tiadylt ER) 120 mg Extended Release capsule Take 1 Capsule by mouth daily. 1 Active losartan (COZAAR) 100 mg tablet Take 150 mg by mouth daily. Active lovastatin (MEVACOR) 40 mg tablet Take 40 mg by mouth daily at bedtime. 1 Active melatonin 3 mg Tablet Take 3 mg by mouth. Active aspirin (BERNARD) 325 mg tablet Take 325 mg by mouth daily. Active omeprazole (PriLOSEC) 20 mg Capsule, Delayed Release(E.C.) Take 20 mg by mouth daily. Active furosemide (LASIX) 20 mg tablet Take 20 mg by mouth daily. Active ALPRAZolam (XANAX) 0.5 mg tablet Take 0.5 mg by mouth nightly as needed for Anxiety. Active codeine-guaiFEN esin (ROBITUSSIN-AC) 10-100 mg/5 mL Liquid TAKE 10 MILLILITERS BY MOUTH AT BEDTIME FOR 5 DAYS 2 Active ondansetron (ZOFRAN ODT) 4 mg Tablet, Rapid Dissolve DISSOLVE 1 TABLET ON TONGUE EVERY 8 HOURS FOR 10 DAYS NEEDED FOR NAUSEA AND VOMITING 2 Active predniSONE (DELTASONE) 20 mg tablet TAKE 1 TAB BY MOUTH DAILY X4 DAYS W/FOOD. DO NOT TAKE W/ ASPIRIN OR NSAIDS (ALEVE OR IBUPROFEN ETC) 2 Active Eliquis 5 mg tablet Take 5 mg by mouth 2 times daily. 2 Active traMADoL (ULTRAM) 50 mg tablet TAKE 1 TABLET BY MOUTH EVERY 4 HOURS 2 Active sertraline (ZOLOFT) 100 mg tablet Take 120 mg by mouth 2 times daily. Active Active Problems Problem Noted Date Diagnosed Date Non-small cell cancer of right lung 09/09/2021 Encounters Date Type Department Care Team Description 09/19/2024 External Device Data STL ABSTRACTION Provider, Abstract from Last 3 Months Family History Medical History Relation Name Comments Cancer Brother 1 Heart Disease Brother 4 Skin Cancer Brother 4 Aneurysm Daughter 1 Lung Cancer Sister Relation Name Status Comments Brother 1 Brother 2 Brother 3 Brother 4 Alive Daughter 1 Daughter 2 Daughter 3 Alive Father Mother Sister Son Social History Tobacco Use Types Packs/Day Years Used Date Smoking Tobacco: Never Smokeless Tobacco: Never Tobacco Cessation:Counseling Given: Not Answered Alcohol Use Standard Drinks/Week Comments Never 0 (1 standard drink = 0.6 oz pur e alcohol) Comments Unknown Sex and Gender Information Value Date Recorded Sex Assigned at Not on file Legal 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 Gender Identity Not on file Sexual Orientation Not on file Last Filed Vital Signs Vital Sign Reading Time Taken Comments Blood Pressure 151/63 05/09/2024 11:46 AM CDT Pulse 53 05/09/2024 11:39 AM CDT Temperature 36.5 C (97.7 F) 05/09/2024 11:39 AM CDT Respiratory Rate 16 05/09/2024 11:39 AM CDT Oxygen Saturation 96% 05/09/2024 11:39 AM CDT Inhaled Oxygen Concentration - - Weight 69.4 kg (153 lb) 05/09/2024 11:39 AM CDT Height 149.9 cm (4' 11 ) 04/19/2022 11:34 AM CDT Body Mass Index 30.9 04/19/2022 11:34 AM CDT Plan of Treatment Upcoming Encounters Date Type Department Care Team (Late st Contact Info) Description 11/12/2024 11:30 AM CDT Office Visit [facility] [place] [address] [facility] [address] [place] [address] Bassem Benitez MD [address] [place] [address] Health Maintenance Due Date Last Done Comments DTAP/TDAP/TD VACCINES (1 - Tdap) 1959 PNEUMOCOCCAL VACCINE 65+ YEARS (1 of 1 - PCV) 02/02/19 88 ZOSTER VACCINE (1 of 2) 02/03/1988 OSTEOPOROSIS SCREENING 2003 RSV VACCINE (60+ or ) (1 - 1-dose 75+ series) 2013 INFLUENZA VACCINE (#1) 2024 Insurance AENA [id number] [facility] Care Teams Software Implementation Project Manager Relationship Specialty Start Date End Date Ulises Guido MD [address] [place] [address] PCP - General Family Practice 08/19/21
--- OUTSIDE RECORDS SUMMARY | 2024-10-03 13:47 | XMS_ITS | Continuity of Care Document ---
Author Organization [facility] Address [address] [place] [address] Phone Care Team Providers Care Lode Miner Name Role Phone Kalin Hammonds DO Unavailable Unavailable Advance Directives Directive Yes / No Effective Date File Name No Information Encounters Encounter Description Practice Location Reason(s) For Visit Diagnoses Date Provider Providers Copied on Encounter [facility], [address], [place], [place], [id number], [place] [phone] [address] [facility] No Information [facility] Johnson. [address], [place], [address], [place]. tel: [phone] Family History Family Member Type Diagnosis Age At Onset No Information Payers Payer name Insurance type Covered green party ID Authoriza tion(s) No Information Social [...]
--- OUTSIDE RECORDS SUMMARY | 2024-10-03 13:47 | XMS_ITS | Clinical Summary ---
Author Organization [facility] Address [address] [place] [address] Care Team Providers Care Deliverer Food Name Role Phone Unavailable Primary Care Provider Unavailabl e Social History Tobacco Use Types Packs/Day Years Used Date Smoking Tobacco: Never Assessed Comments Unknown Sex and Gender Information Value Date Recorded Sex Assigned at Not on file Legal Sex Female 4:39 PM CDT Gender Identity Not on file Sexual Orientation Not on file Plan of Treatment Health Maintenance Due Date Last Done Comments DTaP, Tdap and Td Vaccines ( 1 - Tdap) 1957 Zoster Vaccines (1 of 2) 02/03/1988 Annual Medicare Wellness Visit 2003 Pneumococcal Vaccine: 65+ Ye ars (1 of 1 - PCV) 2003 RSV Immunization or 60+ Years (1 - 1-dose 75+ series) 2013 COVID-19 Vaccine ( - 2023-2 5 season) 2024 Influenza Adult (#1) 2024 Meningococcal B Vaccine Aged Out No l onger eligible based on patient's age to complete this topic Meningococcal Vaccine Aged Out No judi von eligible based on patient's age to complete this topic RSV Immunizations Under 20 Months Aged Out No longer eligible based on patient's age to complete this topic Insurance [employer]
--- OUTSIDE RECORDS SUMMARY | 2024-10-03 13:47 | XMS_ITS | Encounter Summary ---
Author Organization [facility] Address [address] [place] [address] Care Team Providers Care Watch Dial Maker Name Role Phone Ulises Guido MD Primary Care Provider [phone] Encounter Details Date Type Department Care Team (Late st Contact Info) Description 12/07/2023 Orders Only [facility] [place] Information Management [address] [place] [address] Scanning, Provider Social History Tobacco Use Types Packs/Day Years Used Date Smoking Tobacco: Never Smokeless Tobacco: Never Alcohol Use Standard Drinks/Week Comments No 0 (1 standard drink = 0.6 oz pur e alcohol) Comments Unknown Sex and Gender Information Value Date Recorded Sex Assigned at Not on file 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 Gender Identity Not on file Sexual Orientation Not on file documented as of this encounter Plan of Treatment Not on file documented as of this encounter Procedures Procedure Name Priority Date/Time Associated Diagnosis Comments CARDIOLOGY DOCUMENT SCAN 12/07/2023 documented in this encounter Results * Cardiology Document Scan (12/07/2023) Anatomical Region Laterality Modality Other us Provider Scanning CV CARDIAC SERVICES PROCEDURES Final Result documented in this encounter Visit Diagnoses Not on filedocumented in this encounter Care Teams Watch Dial Maker Relationship Specialty Start Date End Date Ulises Guido MD PCP - General Family Medicine 05/19/20 documented as of this encounter
--- OUTSIDE RECORDS SUMMARY | 2024-10-03 13:47 | XMS_ITS | Referral Summary ---
Author Organization [facility] [address] [place] [address] [address] [place] [address] Care Team Providers Care Supervisor Fitting Name Role Phone Ulises Guido MD Primary Care Provider [phone] Encounters Date Type Department Care Team Description 09/11/[address] [facility] Medical [facility] Cardiology [address] [place] [address] [address] [place] [address] Freddie Velasco MD 09/10/2024 11:15 AM CORE FEEDER Office Visit [facility] Medical [facility] Cardiology [address] [place] [address] [address] [place] [address] Freddie Velasco MD Paroxysmal SVT (supraventricular tachycardia) (HCC) (Primary Dx); Nonrheumatic aortic valve insufficiency; Paroxysmal atrial fibrillation (CMS/HCC) (HCC) 08/29/2024 Telephone [facility] Cardiology [address] [place] [address] [address] [place] [address] Freddie Velasco MD from Last 3 Months Allergies Active Allergy Reactions Criticality Noted Date Comments Cefuroxime Unknown Cephalosporins Unknown Erythromycin Muscle pain Medium 04/12/2017 Muscle cramps Metronidazole Unknown Penicillins Hives Medium Quinolones Unknown Medications aspirin (BERNARD CHEWABLE ASPIRIN) 81 mg chewable tablet chew 1 tablet by oral route every day 0 0 02/06/20 15 Active omeprazole (PriLOSEC) 20 mg capsule take 1 capsule by oral route every day before a meal 0 0 02/06/20 15 Active furosemide (LASIX) 20 mg tablet take 1 tablet by oral route every day 0 0 02/06/20 15 Active losartan (COZAAR) 100 mg tablet Take 1 tablet (100 mg total) by mouth daily Active melatonin tablet Take 1 tablet (3 mg total) by mouth nightly as needed for sleep Active hydrOXYzine (VISTARIL) 25 mg capsule TAKE ONE CAPSULE BY MOUTH THREE TIMES DAILY NEEDED FOR ANXIETY 10/25/19 21 Active albuterol HFA (PROVENTIL HFA,VENTOLIN HFA,PROAIR HFA) 90 mcg/actuation inhaler INHALE 2 PUFFS BY MOUTH EVERY 4 HOURS NEEDED FOR SHORTNESS OF BREATH OR WHEEZING 11/05/19 21 Active rosuvastatin (CRESTOR) 10 mg tablet Take 1 tablet (10 mg total) by mouth daily 30 tablet 11 12/28/19 24 025 Active Additional Information Patient not taking.Reported on 09/10/2024 lovastatin (MEVACOR) 20 mg tablet Take 1 tablet (20 mg total) by mouth daily 01/13/20 24 Active traMADoL (ULTRAM) 50 mg tablet Take by mouth every 6 (six) hours as needed Active ALPRAZolam (XANAX) 0.5 mg tablet Take 1 tablet (0.5 mg total) by mouth 3 (three) times a day as needed 05/06/20 24 Active apixaban (ELIQUIS) 2.5 mg tabletIndication s:Paroxysmal atrial fibrillation (CMS/HCC) (HCC) Take 1 tablet (2.5 mg total) by mouth 2 (two) times a day 180 tablet 3 06/20/20 24 Active amiodarone (PACERONE) 200 mg tabletIndication s:Paroxysmal atrial fibrillation (CMS/HCC) (HCC) Take 1 tablet (200 mg total) by mouth daily 90 tablet 3 09/11/19 25 Active amiodarone (PACERONE) 200 mg tabletIndication s:Paroxysmal atrial fibrillation (CMS/HCC) (HCC) Take 1 tablet (200 mg total) by mouth daily 90 tablet 3 06/20/20 24 025 Discontin ued(Reord er) Active Problems Problem Noted Date Diagnosed Date Paroxysmal atrial fibrillation (CMS/HCC) 019 Paroxysmal SVT (supraventricular tachycardia) Aortic valve regurgitation 04/12/2017 Social History Tobacco Use Types Packs/Day Years Used Date Smoking Tobacco: Never Smokeless Tobacco: Never Tobacco Cessation:Counseling Given: Not Answered Alcohol Use Standard Drinks/Week Comments No 0 (1 standard drink = 0.6 oz pur e alcohol) Comments Unknown Sex and Gender Information Value Date Recorded Sex Assigned at Not on file Legal Sex Female 3:40 AM CORE FEEDER Gender Identity Not on file Sexual Orientation Not on file Last Filed Vital Signs Vital Sign Reading Time Taken Comments Blood Pressure 180/78 09/10/2024 10:49 AM CORE FEEDER Pulse 92 09/10/2024 10:49 AM CORE FEEDER Temperature - - Respiratory Rate - - Oxygen Saturation 99% 09/10/2024 10:49 AM CORE FEEDER Inhaled Oxygen Concentration - - Weight 69 kg (152 lb 1.6 oz) 09/10/2024 10:49 AM CORE FEEDER Height 152.4 cm (5') 09/10/2024 10:49 AM CORE FEEDER Body Mass Index 29.7 09/10/2024 10:49 AM CORE FEEDER Plan of Treatment Not on file Procedures Procedure Name Priority Date/Time Associated Diagnosis Comments ECG 12-LEAD Routine 09/10/2024 3:08 PM CORE FEEDER Paroxysmal SVT (supraventricular tachycardia) (HCC) from Last 3 Months Results * ECG 12 lead (09/10/2024 3:08 PM CORE FEEDER) us Freddie Velasco MD ECG ORDERABLES Final Re sult from Last 3 Months Insurance [facility] AETNA [facility] [employer] Care Teams Supervisor Fitting Relationship Specialty Start Date End Date Ulises Guido MD PCP - General Family Medicine 05/19/20
--- OUTSIDE RECORDS SUMMARY | 2024-10-03 13:47 | XMS_ITS | Clinical Summary ---
Author Organization [facility] [address] Address [address] [place] [address] Care Team Providers Care Director Marketing Name Role Phone Ulises Guido MD Primary Care Provider [phone] Allergies Active Allergy Reactions Criticality Noted Date [...] SVT (supraventricular tachycardia) Aortic valve regurgitation 04/12/2017 Encounters Date Type Department Care Team Description 09/11/2024 Telephone [facility] Cardiology [address] [place] [address] [address] [place] [address] Freddie Velasco MD 09/10/2024 11:15 AM RATTLING MACHINE TENDER Office Visit [facility] Cardiology [address] [place] [address] [address] [place] [address] Freddie Velasco MD Paroxysmal SVT (supraventricular tachycardia) (HCC) (Primary Dx); Nonrheumatic aortic valve insufficiency; Paroxysmal atrial fibrillation (CMS/HCC) (HCC) 08/29/2024 Telephone [facility] Cardiology [address] [facility] [address] [place] [address] Freddie Velasco MD from Last 3 Months Family History Medical History Relation Name Comments Other Brother 3 Alive and well; Alcohol abuse Brother 4 Alcoholism; Ca use of : Alcoholism Heart attack Father Myocardial infa rction; Cause of : Myocardial infarction Alcohol abuse Mother Alcoholism; Ca use of : Alcoholism Relation Name Status Comments Brother 1 Alive Brother 2 Brother 3 Brother 4 Father Mother (Age 45) Social History Tobacco Use Types Packs/Day Years Used Date Smoking Tobacco: Never Smokeless Tobacco: Never Tobacco Cessation:Counseling Given: Not Answered Alcohol Use Standard Drinks/Week Comments No 0 (1 standard drink = 0.6 oz pur e alcohol) Comments Unknown Sex and Gender Information Value Date Recorded Sex Assigned at Not on file Legal Sex Female 3: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 Gender Identity Not on file Sexual Orientation Not on file Obstetrics History Last Filed Vital Signs Vital Sign Reading Time Taken Comments Blood Pressure 180/78 09/10/2024 10:49 AM RATTLING MACHINE TENDER Pulse 92 09/10/2024 10:49 AM RATTLING MACHINE TENDER Temperature - - Respiratory Rate - - Oxygen Saturation 99% 09/10/2024 10:49 AM RATTLING MACHINE TENDER Inhaled Oxygen Concentration - - Weight 69 kg (152 lb 1.6 oz) 09/10/2024 10:49 AM RATTLING MACHINE TENDER Height 152.4 cm (5') 09/10/2024 10:49 AM RATTLING MACHINE TENDER Body Mass Index 29.7 09/10/2024 10:49 AM RATTLING MACHINE TENDER Plan of Treatment Health Maintenance Due Date Last Done Comments Depression Screening 1938 Fall Risk Assessment 1940 Hepatitis B Screening 02/03[birth year]1956 Zoster Vaccine (1 of 2) 02/03/1988 Pneumococcal vaccine 65+ (1 of 1 - PCV) 2003 Well Visit 65+ 2003 DTaP/Tdap/Td Vaccine (1 - Tdap) 09/07/2016 7, 09/27/2005 Influenza Vaccine (#1) 2024 9, 06/23/2018, 06/10/2017, Additional history exists Procedures Procedure Name Priority Date/Time Associated Diagnosis Comments ECG 12-LEAD Routine 09/10/2024 3:08 PM RATTLING MACHINE TENDER Paroxysmal SVT (supraventricular tachycardia) (HCC) from Last 3 Months Results * ECG 12 lead (09/10/2024 3:08 PM RATTLING MACHINE TENDER) us Freddie Velasco MD ECG ORDERABLES Final Re sult from Last 3 Months [facility] Care Teams Director Marketing Relationship Specialty Start Date End Date Ulises Guido MD PCP - General Family Medicine 05/19/20
--- OUTSIDE RECORDS SUMMARY | 2024-10-03 13:47 | XMS_ITS | Encounter Summary ---
Author Organization [facility] Address [address] [place] [address] Care Team Providers Care Selling Manager Name Role Phone Ulises Guido MD Primary Care Provider [phone] Encounter Details Date Type Department Care Team (Late st Contact Info) Description 12/06/2023 Orders Only [facility] Health Information Management [address] [place] [address] Scanning, Provider Social History Tobacco Use Types Packs/Day Years Used Date Smoking Tobacco: Never Smokeless Tobacco: Never Alcohol Use Standard Drinks/Week Comments No 0 (1 standard drink = 0.6 oz pur e alcohol) Comments Unknown Sex and Gender Information Value Date Recorded Sex Assigned at Not on file 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 Gender Identity Not on file Sexual Orientation Not on file documented as of this encounter Plan of Treatment Not on file documented as of this encounter Procedures Procedure Name Priority Date/Time Associated Diagnosis Comments SCAN - RADIOLOGY/IMAGING 12/06/2023 SCAN - LABS 12/06/2023 documented in this encounter Results * SCAN - LABS (12/06/2023) us Provider Scanning Final Result * SCAN - RADIOLOGY/IMAGING (12/06/2023) Anatomical Region Laterality Modality Other us Provider Scanning Final Result documented in this encounter Visit Diagnoses Not on filedocumented in this encounter Care Teams Selling Manager Relationship Specialty Start Date End Date Ulises Guido MD PCP - General Family Medicine 05/19/20 documented as of this encounter
--- NOTE | 2024-10-03 15:35 | ED_ITS ---
HPI - URI/Sore Throat General Chief Complaint: Upper Respiratory Infection <Judit Crane PA-C - Last Filed: 10/03/24 15:40> Stated Complaint: cough <TAJ Robledo Last Filed: 10/03/24 15:40> Time Seen by Provider: 10/03/24 15:35 <TAJ Robledo Last Filed: 10/03/24 15:40> Focused HPI: Patient is a 84 y/o female who presents to the ED with c/o URI sx's. Patient reports she has been sick for the past 4 days with URI sx's. C/o cough, congestion, fever, sore throat, achiness in BLE, nausea, decreased PO intake. Has been taking Delsym for her cough with some improvement. States her daughter has had similar sx's. Denies vomiting, SOB, CP. GENERAL: Well-appearing, well-nourished, and in no acute distress. HEAD: Normocephalic, atraumatic. CHEST: Clear to auscultation. ?No respiratory distress. HEART: Regular rate and rhythm.? NEURO: ?Alert and oriented x3. Patient screened in triage and initial orders placed.? ?Additional care and disposition to be based upon?diagnostic testing and treatment. <Judit Crane PA-C - Last Filed: 10/03/24 15:40> Source: patient <Judit Crane PA-C - Last Filed: 10/03/24 15:40> Mode of arrival: ambulatory <Judit Crane PA-C - Last Filed: 10/03/24 15:40> Limitations: no limitations <TAJ Robledo Last Filed: 10/03/24 15:40> History of Present Illness HPI Narrative: agree with the HPI above <Nando Heaton MD - Last Filed: 10/04/24 00:09> Related Data Home Medications: Home Medications ?Medication ?Instructions ?Recorded ?Confirmed ?Last Taken ?Type melatonin 3 mg tablet 3 mg PO HS PRN Insomnia 10/31/21 08/07/24 12/05/23 History apixaban 5 mg tablet (Eliquis) 5 mg PO BID 06/02/24 08/07/24 Unknown History diclofenac sodium 1 % topical gel 1 ea topical DAILY 06/02/24 08/07/24 Unknown History lovastatin 20 mg tablet 20 mg PO DAILY 06/02/24 08/07/24 Unknown History <Judit Carne PA-C - Last Filed: 10/03/24 15:40> Allergies/Adverse Reactions: Allergies Allergy/AdvReac Type Severity Reaction Status Date / Time Penicillins Allergy Severe Hives Verified 10/03/24 16:01 gabapentin Allergy Intermediate Chest Pain Verified 10/03/24 16:01 nitrofurantoin (From Allergy Intermediate Hives Verified 10/03/24 16:01 Macrobid) Quinolones Allergy Mild Unknown Verified 10/03/24 16:01 cefprozil Allergy Unknown Unknown Verified 10/03/24 16:01 cefuroxime Allergy Unknown Unknown Verified 10/03/24 16:01 Cephalosporins Allergy Unknown Unknown Verified 10/03/24 16:01 gatifloxacin Allergy Unknown Unknown Verified 10/03/24 16:01 metronidazole Allergy Unknown Unknown Verified 10/03/24 16:01 fluoxetine (From Prozac) AdvReac Mild Dizziness Verified 10/03/24 16:01 erythromycin base AdvReac Unknown Stomach Verified 10/03/24 16:01 cramps loratadine (From Claritin) AdvReac Unknown Jittery Verified 10/03/24 16:01 <Judit Crane PA-C - Last Filed: 10/03/24 15:40> [facility] Past Medical History Medical History: Medical History Non-small cell carcinoma of lung Gastroesophageal reflux disease Nausea Aortic valve regurgitation Moderate by echocardiogram in October 2018. Followed by Dr. Velasco. Dementia Reported by daughter, however the patient disputes this. Bronchiectasis Prior imaging demonstrated bronchiectasis in bilateral lower lobes with chronic scarring. Hyperlipidemia Hypertension Benzodiazepine dependence Obstructive sleep apnea Paroxysmal atrial fibrillation She has declined anticoagulation and antiarrhythmics previously but is now on metoprolol daily. She is followed by Dr. Velasco. Chronic midline low back pain with sciatica Arthritis Depression Anxiety Diverticulitis <Judit Crane PA-C - Last Filed: 10/03/24 15:40> Surgical History Surgical History: Surgical History History of tubal ligation History of hysterectomy History of cataract extraction History of tooth extraction History of cardiac catheterization No known intervention. History of cholecystectomy History of appendectomy <TAJ Robledo Last Filed: 10/03/24 15:40> Family History Family History: Family History Father Acute myocardial infarction Family history of alcoholism Gout Tobacco abuse Mother Family history of alcoholism Sibling Acute myocardial infarction Heart disease Sibling Brain aneurysm Daughter Bowel perforation July 2020 sounds like it may have been a bowel perforation related to hernia and possibly some diabetic problems.. Daughter Heart disease age 35 of heart attack Acute myocardial infarction Daughter COVID-19 Cyst of breast <TAJ Robledo Last Filed: 10/03/24 15:40> Social History Social History: Social History Social History: Surrogate medical decision maker: Toshia Bliss, daughter. Code status: Modified code, no intubation. Smoking status: Never smoker Second hand tobacco smoke exposure: Yes Alcohol intake: never Substance use: never Substance use type: does not use Do You Feel Safe in your Home?: Yes Lack of Transportation: No Lack of Food: Never True Current Housing: I Have Housing Concerned About Future Housing: No Difficulty Paying Gas/Electric Bills: No Difficulty Paying for Meds: No Currently Unemployed: No Education: High School Diploma/GED Difficulty w/ Childcare or Family Care: No Additional living arrangements comments: . Had 3 daughters, 1 who from an CA at age 30 and other who passed from complications of diabetes. 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 Spiritual care concerns: No Agree to blood products: Yes <TAJ Robledo Last Filed: 10/03/24 15:40> Exam Narrative: GENERAL: [Well-appearing, well-nourished, and in no acute distress.] HEAD: [Normocephalic, atraumatic.] EYES: [PERRLA and EOMI.] ENT: Nares clear, no rhinorrhea or epistaxis. Mucous membranes moist. NECK: Supple. CHEST: [Clear to auscultation. No respiratory distress.] HEART: [Regular rate and rhythm]. No murmur heard. [Normal peripheral pulses.] ABDOMEN: [Soft, nondistended], [nontender], [No rigidity or guarding] EXTREMITIES: Normal range of motion. [No edema.] SKIN: Warm, dry, no rash. NEURO: [No focal deficits]. Alert and oriented [x3.] PSYCH: [Normal mood and affect.] <Nando Heaton MD - Last Filed: 10/04/24 00:09> Course Vital Signs Vital signs: Vital Signs Temperature 36.7 C 10/03/24 13:43 Pulse Rate 87 10/03/24 13:43 Respiratory Rate 16 10/03/24 13:43 Blood Pressure 151/71 H 10/03/24 13:43 Pulse Oximetry 98 10/03/24 13:43 Oxygen Delivery Room Air 10/03/24 13:43 Temperature 36.9 C 10/03/24 16:03 Pulse Rate 78 10/03/24 16:03 Respiratory Rate 18 10/03/24 16:03 Blood Pressure 162/76 H 10/03/24 16:03 Pulse Oximetry 98 10/03/24 16:03 Oxygen Delivery Room Air 10/03/24 16:07 <Judit Crane PA-C - Last Filed: 10/03/24 15:40> Vital Signs Temperature 36.7 C 10/03/24 13:43 Pulse Rate 87 10/03/24 13:43 Respiratory Rate 16 10/03/24 13:43 Blood Pressure 151/71 H 10/03/24 13:43 Pulse Oximetry 98 10/03/24 13:43 Oxygen Delivery Room Air 10/03/24 13:43 Temperature 36.9 C 10/03/24 16:03 Pulse Rate 78 10/03/24 16:03 Respiratory Rate 18 10/03/24 16:03 Blood Pressure 162/76 H 10/03/24 16:03 Pulse Oximetry 98 10/03/24 16:03 Oxygen Delivery Room Air 10/03/24 16:07 <Nando Heaton MD - Last Filed: 10/04/24 00:09> MDM - URI/Sore Throat MDM Narrative Medical decision making narrative: 84-year-old female presenting to the emergency department with upper respiratory infections, likely viral syndrome. Four days of symptoms, improvement with Delsym at home. Nonproductive cough, no nausea or vomiting, no chest pain or difficulty in breathing. Is able to tolerate p.o. intake easily. Otherwise well-appearing with clear to auscultation breath sounds, no signs of respiratory distress. Chest x-ray and swabs were obtained. chest x- rays independent reviewed shows no acute cardiopulmonary disease. She did test positive for coronavirus. Patient was counseled on the expected management of acute viral syndrome and COVID, given prescription medications for symptom control and stable for discharge home at this time with regular PCP follow-up and return precautions. Patient verbalized understanding was safe for discharge. <Nando Heaton MD - Last Filed: 10/04/24 00:09> Medical Records Attestation: I reviewed the patient's medical records. <Nando Heaton MD - Last Filed: 10/04/24 00:09> Lab Data Attestation: I reviewed the patient's lab results. <Nando Heaton MD - Last Filed: 10/04/24 00:09> Labs: Lab Results 10/03/24 Range/Units 15:38 Influenza A (RT-PCR) Negative (Negative) Influenza B (RT-PCR) Negative (Negative) RSV (RT-PCR) Negative (Negative) SARS-CoV-2 RNA (RT-PCR) Positive A (Negative) <Judit Crane PA-C - Last Filed: 10/03/24 15:40> Lab Results 10/03/24 Range/Units 15:38 Influenza A (RT-PCR) Negative (Negative) Influenza B (RT-PCR) Negative (Negative) RSV (RT-PCR) Negative (Negative) SARS-CoV-2 RNA (RT-PCR) Positive A (Negative) <Nando Heaton MD - Last Filed: 10/04/24 00:09> Imaging Data Attestation: I personally reviewed and interpreted this imaging study as follows: <Nando Heaton MD - Last Filed: 10/04/24 00:09> Radiologist's impression: Impressions Chest X-Ray 10/03/24 16:09 Impression: 1: No acute cardiopulmonary disease. <Nando Heaton MD - Last Filed: 10/04/24 00:09> Discharge Plan Discharge Clinical Impression: Coronavirus infection, Acute upper respiratory infection <Judit Crane PA-C - Last Filed: 10/03/24 15:40> Patient Disposition: Home, Self-Care <TAJ Robledo Last Filed: 10/03/24 15:40> Condition: Stable <TAJ Robledo Last Filed: 10/03/24 15:40> Instructions: Antibiotic Form, Cold Symptoms (ED), COVID-19 (Coronavirus Disease 2019) (ED) <TAJ Robledo Last Filed: 10/03/24 15:40> Additional Instructions: you did test positive for COVID, no pneumonia on your x-ray, take Tylenol and ibuprofen as needed for fever and pain control, but we will prescribe you some benzonatate and cough suppression medication. <Judit Crane PA-C - Last Filed: 10/03/24 15:40> Patient Language: [place] Citizen <TAJ Robledo Last Filed: 10/03/24 15:40> Prescriptions: New acetaminophen [Tylenol Extra Strength] 500 mg tablet 1,000 mg PO TID PRN (Reason: pain) Qty: 30 0RF ibuprofen 600 mg tablet 600 mg PO TID PRN (Reason: pain) Qty: 20 0RF guaifenesin [Mucinex] 1,200 mg tablet extended release 12hr 1,200 mg PO Q12H Qty: 20 0RF benzonatate 200 mg capsule 200 mg PO TID PRN (Reason: cough) Qty: 20 0RF No Action lovastatin 20 mg tablet 20 mg PO DAILY diclofenac sodium 1 % gel 1 ea topical DAILY Rx Instructions: apply to bilateral legs Eliquis 5 mg tablet 5 mg PO BID polyethylene glycol 3350 [Miralax] 17 gram Powder In Packet 17 g PO QAM Qty: 30 0RF amiodarone [Pacerone] 200 mg Tablet 400 mg PO Q12H Qty: 30 0RF melatonin 3 mg Tablet 3 mg PO HS PRN (Reason: Insomnia) aspirin [Adult Aspirin Regimen] 81 mg tablet,delayed release (DR/EC) 81 mg PO DAILY Qty: 90 0RF albuterol sulfate 90 mcg/actuation HFA aerosol inhaler 2 inh INHALATION Q4H PRN (Reason: shortness of breath or wheezing) Qty: 6.7 11RF furosemide 20 mg tablet 20 mg PO QAM Qty: 90 1RF omeprazole 20 mg capsule,delayed release(DR/EC) 20 mg PO BID Qty: 60 3RF Proctofoam HC 1-1 % foam 1 applic RECTAL QID PRN (Reason: hemorrhoids) Qty: 10 0RF losartan 100 mg tablet 100 mg PO DAILY Qty: 90 1RF Rx Instructions: TAKE 1 TABLET BY MOUTH EVERY DAY IN THE MORNING tramadol 50 mg tablet 50 mg PO Q6H PRN (Reason: pain) Qty: 60 0RF alprazolam 0.5 mg tablet 0.5 mg PO TID PRN (Reason: anxiety) 30 Days Qty: 75 1RF <Judit Crane PA-C - Last Filed: 10/03/24 15:40> Follow-up/Referrals: Ulises Guido MD [Primary Care Provider] - <Judit Crane PA-C - Last Filed: 10/03/24 15:40> Time of Disposition: 17:18 <Judit Crane PA-C - Last Filed: 10/03/24 15:40> 17:18 <Nando Heaton MD - Last Filed: 10/04/24 00:09>
[2024-10-03 16:03] VITALS: BP 162/76; PULSE 78; RESP 18; TEMP 36.9; O2SAT 98
[2024-10-03 16:24] LABS: Influenza A QL RT-PCR Negative (Negative); Influenza B QL RT-PCR Negative (Negative); RSV RNA, RT-PCR Negative (Negative); SARS-CoV-2 RNA PCR Positive (Negative)
--- OUTSIDE RECORDS SUMMARY | 2024-10-03 17:10 | XMS_ITS | Clinical Summary ---
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 Gender Identity Not on file Sexual Orientation [...] Description 11/12/2024 11:30 AM CDT Office Visit [facility] Oncology and Hematology [place] [address] [place] [address] Bassem Benitez MD [address] [facility] [address] [place] [address] Health Maintenance Due Date Last Done Comments DTAP/TDAP/TD VACCINES (1 - Tdap) 1959 PNEUMOCOCCAL VACCINE 65+ YEARS (1 of 1 - PCV) 02/02/19 88 ZOSTER VACCINE (1 of 2) 02/03/1988 OSTEOPOROSIS SCREENING 2003 RSV VACCINE (60+ or ) (1 - 1-dose 75+ series) 2013 INFLUENZA VACCINE (#1) 2024 Insurance AENA [id number] [facility] MCR Care Teams Mold Maker Relationship Specialty Start Date End Date Ulises Guido MD [address] [place] [address] PCP - General Family Practice 08/19/21
--- OUTSIDE RECORDS SUMMARY | 2024-10-03 17:10 | XMS_ITS | Encounter Summary ---
Author Organization [facility] Healthcare Address [address] [place] [address] Care Team Providers Care Warehouse Distribution Manager Name Role Phone Ulises Guido MD Primary Care Provider [phone] Encounter Details Date Type Department Care Team (Late st Contact Info) Description 12/06/2023 Orders Only [facility] [address] [place] [id number] Scanning, Provider Social History Tobacco Use Types Packs/Day Years Used Date Smoking Tobacco: Never Smokeless Tobacco: Never Alcohol Use Standard Drinks/Week Comments No 0 (1 standard drink = 0.6 oz pur e alcohol) Comments Unknown Sex and Gender Information Value Date Recorded Sex Assigned at Not on file 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
--- OUTSIDE RECORDS SUMMARY | 2024-10-03 17:10 | XMS_ITS | Encounter Summary ---
Author Organization [facility] Healthcare Address [address] [place] [address] Care Team Providers Care Tour Actor Name Role Phone Ulises Guido MD Primary Care Provider [phone] Encounter Details Date Type Department Care Team (Late st Contact Info) Description 12/07/2023 Orders Only [facility] [place] Information Management [address] [place] [id number] Scanning, Provider Social History Tobacco Use Types Packs/Day Years Used Date Smoking Tobacco: Never Smokeless Tobacco: Never Alcohol Use Standard Drinks/Week Comments No 0 (1 standard drink = 0.6 oz pur e alcohol) Comments Unknown Sex and Gender Information Value Date Recorded Sex Assigned at Not on file 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
--- OUTSIDE RECORDS SUMMARY | 2024-10-03 17:10 | XMS_ITS | Continuity of Care Document ---
Author Organization [facility] Address [address] [place] [address] Phone Care Team Providers Care Health Information Managers Name Role Phone Kalin Hammonds DO Unavailable Unavailable Advance Directives Directive Yes / No Effective Date File Name No Information Encounters Encounter Description Practice Location Reason(s) For Visit Diagnoses Date Provider Providers Copied on Encounter [facility], [address], [place], [place], [id number], [place] [phone] SEC [facility] No Information [facility]. [address] [facility], [place], [address], [place]. tel: [phone] Family History Family Member Type Diagnosis Age At Onset No Information Payers Payer name Insurance type Covered alliance party ID Authoriza tion(s) No Information Social [...]
--- OUTSIDE RECORDS SUMMARY | 2024-10-03 17:10 | XMS_ITS | Clinical Summary ---
Author Organization [facility] Address [address] [place] [id number] Care Team Providers Care Credit Portfolio Manager Name Role Phone Unavailable Primary Care Provider [...]
--- OUTSIDE RECORDS SUMMARY | 2024-10-03 17:11 | XMS_ITS | Clinical Summary ---
Author Organization [facility] [address] Address [address] [place] [address] Care Team Providers Care Customer Service Technician Name Role Phone Ulises Guido MD Primary Care Provider [phone] Allergies Active Allergy Reactions Criticality Noted Date [...] Type Department Care Team Description 09/11/2024 Telephone [facility] Cardiology [address] [place] [address] [address] [place] [address] Freddie Velasco MD 09/10/2024 11:15 AM POOL HAND Office Visit [facility] Cardiology [address] [place] [address] [address] [place] [address] Freddie Velasco MD Paroxysmal SVT (supraventricular tachycardia) (HCC) (Primary Dx); Nonrheumatic aortic valve insufficiency; Paroxysmal atrial fibrillation (CMS/HCC) (HCC) 08/29/[address] [facility] Cardiology [address] [facility] [address] [place] [address] Freddie Velasco MD from Last [...] on file Legal Sex Female 3:40 AM POOL HAND Gender Identity Not on file Sexual Orientation Not on file Obstetrics History Last Filed Vital Signs Vital Sign Reading Time Taken Comments Blood Pressure 180/78 09/10/2024 10:49 AM POOL HAND Pulse 92 09/10/2024 10:49 AM POOL HAND Temperature - - Respiratory Rate - - Oxygen Saturation 99% 09/10/2024 10:49 AM POOL HAND Inhaled Oxygen Concentration - - Weight 69 kg (152 lb 1.6 oz) 09/10/2024 10:49 AM POOL HAND Height 152.4 cm (5') 09/10/2024 10:49 AM POOL HAND Body Mass Index 29.7 09/10/2024 10:49 AM POOL HAND Plan of Treatment Health Maintenance Due Date [...] Comments ECG 12-LEAD Routine 09/10/2024 3:08 PM POOL HAND Paroxysmal SVT (supraventricular tachycardia) (HCC) from Last 3 Months Results * ECG 12 lead (09/10/2024 3:08 PM POOL HAND) us Freddie Velasco MD ECG ORDERABLES Final Re sult from Last 3 Months Insurance [facility] Care Teams Customer Service Technician Relationship Specialty Start Date End Date Ulises Guido MD PCP - General Family Medicine 05/19/20
--- OUTSIDE RECORDS SUMMARY | 2024-10-03 17:11 | XMS_ITS | Referral Summary ---
Author Organization [facility] [address] [place] [address] [address] [place] [address] Care Team Providers Care Telephone Operator Name Role Phone Ulises Guido MD Primary Care Provider [phone] Encounters Date Type Department Care Team Description 09/11/2024 Telephone [facility] Cardiology [address] [place] [address] [address] [place] [address] Freddie Velasco MD 09/10/2024 11:15 AM MASTER PLUMBER Office Visit [facility] Cardiology [address] [place] [address] [address] [place] [address] Freddie Velasco MD Paroxysmal SVT (supraventricular tachycardia) (HCC) (Primary Dx); Nonrheumatic aortic valve insufficiency; Paroxysmal atrial fibrillation (CMS/HCC) (HCC) 08/29/2024 Telephone [facility] Cardiology [address] [place] [address] [address] [place] [address] Freddie Velasco MD from Last [...] on file Legal Sex Female 3:40 AM MASTER PLUMBER Gender Identity Not on file Sexual Orientation Not on file Last Filed Vital Signs Vital Sign Reading Time Taken Comments Blood Pressure 180/78 09/10/2024 10:49 AM MASTER PLUMBER Pulse 92 09/10/2024 10:49 AM MASTER PLUMBER Temperature - - Respiratory Rate - - Oxygen Saturation 99% 09/10/2024 10:49 AM MASTER PLUMBER Inhaled Oxygen Concentration - - Weight 69 kg (152 lb 1.6 oz) 09/10/2024 10:49 AM MASTER PLUMBER Height 152.4 cm (5') 09/10/2024 10:49 AM MASTER PLUMBER Body Mass Index 29.7 09/10/2024 10:49 AM MASTER PLUMBER Plan of Treatment Not on file Procedures Procedure Name Priority Date/Time Associated Diagnosis Comments ECG 12-LEAD Routine 09/10/2024 3:08 PM MASTER PLUMBER Paroxysmal SVT (supraventricular tachycardia) (HCC) from Last 3 Months Results * ECG 12 lead (09/10/2024 3:08 PM MASTER PLUMBER) us Freddie Velasco MD ECG ORDERABLES Final Re sult from Last 3 Months Insurance [facility] [employer] [facility] [employer] Care Teams Telephone Operator Relationship Specialty Start Date End Date Ulises Guido MD PCP - General Family Medicine 05/19/20
== END 2024-10-03 17:53 | disposition home or self-care (01) ==
PROVIDERS: Physician Assistant; Emergency Provider Student in an Organized Health Care Education/Training Program; PCP Family Medicine
DX: U07.1 COVID-19 (principal); J06.9 Acute upper respiratory infection, unspecified; I48.0 Paroxysmal atrial fibrillation; I35.1 Nonrheumatic aortic (valve) insufficiency; I10 Essential (primary) hypertension; E78.5 Hyperlipidemia, unspecified; G47.33 Obstructive sleep apnea (adult) (pediatric); K21.9 Gastro-esophageal reflux disease without esophagitis; M19.90 Unspecified osteoarthritis, unspecified site; F41.9 Anxiety disorder, unspecified; F32.A Depression, unspecified; Z85.118 Personal history of other malignant neoplasm of bronchus and lung; Z90.710 Acquired absence of both cervix and uterus; Z90.49 Acquired absence of other specified parts of digestive tract; Z98.49 Cataract extraction status, unspecified eye; Z79.01 Long term (current) use of anticoagulants; Z79.899 Other long term (current) drug therapy; Z79.82 Long term (current) use of aspirin
CPT/HCPCS: 71046; 87637; 99283

== ENCOUNTER 2024-11-05 10:33 | Outpatient (CLI) | payer MEDICARE, SELFPAY ==
--- NOTE | ~2024-11-05 | CT_ITS ---
Clinical Indication: Lung cancer CT Scan of the Chest with Contrast: Technique: Contiguous sections were acquired throughout the chest after intravenous administration of 75 cc of Omnipaque 350. Dose reduction technique was used on this scan by utilizing automated exposu re control and iterative reconstruction technique. The dose-length product (DLP) was 165.11 mGy-cm. COMPARISON: 05/01/2024 Findings: There is no evidence of any significant mediastinal, hilar or axillary lymphadenopathy. There is no f illing defect in the pulmonary arterial tree to suggest pulmonary embolus. There is no evidence of ao rtic dissection or aneurysm. There is no evidence of pleural or pericardial effusion. Stable right upper lobe consolidation and possible volume loss, compatible with chronic atelectasis a nd/or posttreatment change. There is bibasilar peripheral chronic interstitial change. Left lung othe rwise clear. Images through the upper abdomen reveal no abnormalities. Impression: No interval change. Stable chronic consolidation and volume loss in the right upper lobe, which could reflect chronic atelectasis and/or posttreatment change. Bibasilar chronic interstitial disease. Reviewed, dictated and finalized at location . Impression: No interval change. Stable chronic consolidation and volume loss in the right u pper lobe, which could reflect chronic atelectasis and/or posttreatment change. Bibasilar chronic interstitial disease.
[2024-11-05 10:50] LABS: Estimated Glomerular Filt Rate 36
--- OUTSIDE RECORDS SUMMARY | 2024-11-05 12:00 | XMS_ITS | Clinical Summary ---
Author Organization [facility] [place] [address] Address [address] [place] [address] Care Team Providers Care Community Center Coordinator Name Role Phone Ulises Guido MD Primary Care Provider [phone] Allergies Active Allergy Reactions Criticality Noted Date Comments Cefuroxime Unknown Cephalosporins Unknown Erythromycin Muscle pain Medium 04/12/2017 Muscle cramps Metronidazole Unknown Penicillins Hives Medium Quinolones Unknown Medications aspirin (BERNARD CHEWABLE ASPIRIN) 81 mg chewable tablet chew 1 tablet by oral route every day 0 0 5 Active omeprazole (PriLOSEC) 20 mg capsule take 1 capsule by oral route every day before a meal 0 0 5 Active furosemide (LASIX) 20 mg tablet take 1 tablet by oral route every day 0 0 5 Active losartan (COZAAR) 100 mg tablet Take 1 tablet (100 mg total) by mouth daily Active melatonin tablet Take 1 tablet (3 mg total) by mouth nightly as needed for sleep Active hydrOXYzine (VISTARIL) 25 mg capsule TAKE ONE CAPSULE BY MOUTH THREE TIMES DAILY NEEDED FOR ANXIETY 1 Active albuterol HFA (PROVENTIL HFA,VENTOLIN HFA,PROAIR HFA) 90 mcg/actuation inhaler INHALE 2 PUFFS BY MOUTH EVERY 4 HOURS NEEDED FOR SHORTNESS OF BREATH OR WHEEZING 1 Active rosuvastatin (CRESTOR) 10 mg tablet Take 1 tablet (10 mg total) by mouth daily 30 tablet 11 4 12/28/19 25 Active Additional Information Patient not taking.Reported on 09/10/2024 lovastatin (MEVACOR) 20 mg tablet Take 1 tablet (20 mg total) by mouth daily 4 Active traMADoL (ULTRAM) 50 mg tablet Take by mouth every 6 (six) hours as needed Active ALPRAZolam (XANAX) 0.5 mg tablet Take 1 tablet (0.5 mg total) by mouth 3 (three) times a day as needed 4 Active apixaban (ELIQUIS) 2.5 mg tabletIndication s:Paroxysmal atrial fibrillation (HCC) Take 1 tablet (2.5 mg total) by mouth 2 (two) times a day 180 tablet 3 4 Active amiodarone (PACERONE) 200 mg tabletIndication s:Paroxysmal atrial fibrillation (HCC) Take 1 tablet (200 mg total) by mouth daily 90 tablet 3 5 Active Active Problems Problem Noted Date Diagnosed Date Paroxysmal atrial fibrillation 05/02/2019 Paroxysmal SVT (supraventricular tachycardia) Aortic valve regurgitation 04/12/2017 Encounters Date Type Department Care Team Description 09/11/2024 Telephone [facility] Cardiology [address] [place] [phone] Freddie Velasco MD 09/10/2024 11:15 AM CUSTOMER FACILITIES SUPERVISOR Office Visit [facility] Cardiology [address] [place] [phone] Freddie Velasco MD Paroxysmal SVT (supraventricular tachycardia) (Primary Dx); Nonrheumatic aortic valve insufficiency; Paroxysmal atrial fibrillation (HCC) 08/29/2024 Telephone [facility] Cardiology [address] [place] [phone] Freddie Velasco MD from Last 3 Months [...] on file Legal Sex Female 3:40 AM CUSTOMER FACILITIES SUPERVISOR Gender Identity Not on file Sexual Orientation Not on file Obstetrics History Last Filed Vital Signs Vital Sign Reading Time Taken Comments Blood Pressure 180/78 09/10/2024 10:49 AM CUSTOMER FACILITIES SUPERVISOR Pulse 92 09/10/2024 10:49 AM CUSTOMER FACILITIES SUPERVISOR Temperature - - Respiratory Rate - - Oxygen Saturation 99% 09/10/2024 10:49 AM CUSTOMER FACILITIES SUPERVISOR Inhaled Oxygen Concentration - - Weight 69 kg (152 lb 1.6 oz) 09/10/2024 10:49 AM CUSTOMER FACILITIES SUPERVISOR Height 152.4 cm (5') 09/10/2024 10:49 AM CUSTOMER FACILITIES SUPERVISOR Body Mass Index 29.7 09/10/2024 10:49 AM CUSTOMER FACILITIES SUPERVISOR Plan of Treatment Health Maintenance Due Date Last Done Comments Depression Screening 1940 Fall Risk Assessment 1940 Hepatitis B Screening 02/03/1956 Pneumococcal vaccine 65+ (1 of 1 - PCV) 02/03/1988 Zoster Vaccine (1 of 2) 02/03/1988 Well Visit 65+ 2003 DTaP/Tdap/Td Vaccine (1 - Tdap) 09/07/2016 7, 09/27/2005 Influenza Vaccine (#1) 2024 9, 06/23/2018, 06/10/2017, Additional history exists Procedures Procedure Name Priority Date/Time Associated Diagnosis Comments ECG 12-LEAD Routine 09/10/2024 3:08 PM CUSTOMER FACILITIES SUPERVISOR Paroxysmal SVT (supraventricular tachycardia) from Last 3 Months Results * ECG 12 lead (09/10/2024 3:08 PM CUSTOMER FACILITIES SUPERVISOR) us Freddie Velasco MD ECG ORDERABLES Final Re sult from Last 3 Months Insurance [employer] [facility] Care Teams Community Center Coordinator Relationship Specialty Start Date End Date Ulises Guido MD PCP - General Family Medicine 05/19/20
--- OUTSIDE RECORDS SUMMARY | 2024-11-05 12:00 | XMS_ITS | Encounter Summary ---
Author Organization [facility] Address [address] [place] [address] Care Team Providers Care Butt Presser Name Role Phone Ulises Guido MD Primary Care Provider Encounter Details Date Type Department Care Team (Late st Contact Info) Description 11/02/2024 External Device Data [facility] ABSTRACTION Provider, Abstract NO ADDRESS ON FILE Social History Tobacco Use Types Packs/Day Years Used Date Smoking Tobacco: Never Smokeless Tobacco: Never Alcohol Use Standard Drinks/Week Comments Never 0 (1 standard drink = 0.6 oz pur e alcohol) Comments Unknown Sex and Gender Information Value Date Recorded Sex Assigned at Not on file Legal Sex Female 11:17 AM MANAGER WORKERS COMPENSATION Gender Identity Not on file Sexual Orientation Not on file documented as of this encounter Plan of Treatment Upcoming Encounters Date Type Department Care Team (Late st Contact Info) Description 11/12/2024 11:30 AM CDT Office Visit [facility] Oncology and Hematology - Tab [address] [place] [address] [address] [place] [address] Bassem Benitez MD [address] [place] [address] [address] [place] [address] documented as of this encounter Visit Diagnoses Not on filedocumented in this encounter Care Teams Butt Presser Relationship Specialty Start Date End Date Ulises Guido MD [address] [place] [address] PCP - General Family Practice 08/19/21 documented as of this encounter
--- OUTSIDE RECORDS SUMMARY | 2024-11-05 12:00 | XMS_ITS | Encounter Summary ---
Author Organization [facility] Address [address] [place] [address] Care Team Providers Care Geologist Name Role Phone Ulises Guido MD Primary Care Provider [phone] Encounter Details Date Type Department Care Team (Late st Contact Info) Description 12/07/2023 Orders Only [facility] [place] Management [address] [place] [address] Scanning, Provider Social History Tobacco Use Types Packs/Day Years Used Date Smoking Tobacco: Never Smokeless Tobacco: Never Alcohol Use Standard Drinks/Week Comments No 0 (1 standard drink = 0.6 oz pur e alcohol) Comments Unknown Sex and Gender Information Value Date Recorded Sex Assigned at Not on file Legal Sex Female 3:40 AM TRAFFIC SIGN SUPERVISOR Gender Identity Not on file Sexual [...] on filedocumented in this encounter Care Teams Geologist Relationship Specialty Start Date End Date Ulises Guido MD PCP - General Family Medicine 05/19/20 documented as of this encounter
--- OUTSIDE RECORDS SUMMARY | 2024-11-05 12:00 | XMS_ITS | Clinical Summary ---
Author Organization [facility]3] Pteer marie [facility] Address [address] [place] [address] Care Team Providers Care Screen Cutter And Trimmer Name Role Phone Ulises Guido MD Primary Care Provider [phone] Allergies Active Allergy Reactions Criticality Noted Date [...] Encounters Date Type Department Care Team Description 11/02/2024 External Device Data ST[facility] ABSTRACTION Provider, Abstract 11/02/2024 External Device Data [facility] ABSTRACTION Provider, Abstract 10/16/2024 External Device Data [place] ABSTRACTION Provider, Abstract 09/19/2024 External Device Data ST[place] ABSTRACTION Provider, [...] on file Legal Sex Female 11:17 AM ELECTRICAL ASSISTANT Gender Identity Not on file Sexual Orientation [...] Description 11/12/2024 11:30 AM CDT Office Visit [facility]3] Oncology and Hematology - Tab [address] [facility] [address] [place] [address] Bassem Benitez MD [address] [facility] [address] [place] [address] Health Maintenance Due Date Last Done Comments DTAP/TDAP/TD VACCINES (1 - Tdap) 1957 PNEUMOCOCCAL VACCINE 50+ YEARS (1 of 1 - PCV) 02/02/19 88 ZOSTER VACCINE (1 of 2) 02/03/1988 OSTEOPOROSIS SCREENING 2003 RSV VACCINE (60+ or ) (1 - 1-dose 75+ series) 2013 INFLUENZA VACCINE (#1) 2024 Insurance [employer] [id number] [facility] MCR Care Teams Screen Cutter And Trimmer Relationship Specialty Start Date End Date Ulises Guido MD [address] [place] [address] PCP - General Family Practice 08/19/21
--- OUTSIDE RECORDS SUMMARY | 2024-11-05 12:00 | XMS_ITS | Referral Summary ---
Author Organization [facility] [address] [place] [address] [address] [place] [address] Care Team Providers Care Direct Mail Clerk Name Role Phone Ulises Guido MD Primary Care Provider [phone] Encounters Date Type Department Care Team Description 09/11/2024 Telephone [facility] Cardiology [address] [facility] [address] [place] [address] Freddie Velasco MD 09/10/2024 11:15 AM SPEED RUNNER Office Visit [facility] Medical [facility] Cardiology [address] [place] [address] Freddie Velasco MD Paroxysmal SVT (supraventricular tachycardia) (Primary Dx); Nonrheumatic aortic valve insufficiency; Paroxysmal atrial fibrillation (HCC) 08/29/2024 Telephone [facility] Cardiology [address] [facility] [address] [place] [address] Freddie Velasco MD from Last [...] on file Legal Sex Female 3:40 AM SPEED RUNNER Gender Identity Not on file Sexual Orientation Not on file Last Filed Vital Signs Vital Sign Reading Time Taken Comments Blood Pressure 180/78 09/10/2024 10:49 AM SPEED RUNNER Pulse 92 09/10/2024 10:49 AM SPEED RUNNER Temperature - - Respiratory Rate - - Oxygen Saturation 99% 09/10/2024 10:49 AM SPEED RUNNER Inhaled Oxygen Concentration - - Weight 69 kg (152 lb 1.6 oz) 09/10/2024 10:49 AM SPEED RUNNER Height 152.4 cm (5') 09/10/2024 10:49 AM SPEED RUNNER Body Mass Index 29.7 09/10/2024 10:49 AM SPEED RUNNER Plan of Treatment Not on file Procedures Procedure Name Priority Date/Time Associated Diagnosis Comments ECG 12-LEAD Routine 09/10/2024 3:08 PM SPEED RUNNER Paroxysmal SVT (supraventricular tachycardia) from Last 3 Months Results * ECG 12 lead (09/10/2024 3:08 PM SPEED RUNNER) Freddie Velasco MD ECG ORDERABLES Final Re sult from Last 3 Months Insurance [facility] [employer] [facility] [employer] Care Teams Direct Mail Clerk Relationship Specialty Start Date End Date Ulises Guido MD PCP - General Family Medicine 05/19/20
--- OUTSIDE RECORDS SUMMARY | 2024-11-05 12:00 | XMS_ITS | Encounter Summary ---
Author Organization [facility] Healthcare Address [address] [place] [address] Care Team Providers Care Shellfish Sorter Name Role Phone Ulises Guido MD Primary Care Provider Encounter Details Date Type Department Care Team (Late st Contact Info) Description 12/06/2023 Orders Only [facility] [place] Health Information Management [address] [place] [address] Scanning, Provider Social History Tobacco Use Types Packs/Day Years Used Date Smoking Tobacco: Never Smokeless Tobacco: Never Alcohol Use Standard Drinks/Week Comments No 0 (1 standard drink = 0.6 oz pur e alcohol) Comments Unknown Sex and Gender Information Value Date Recorded Sex Assigned at Not on file Legal Sex Female 3:40 AM PACKAGE DRIER Gender Identity Not on file Sexual Orientation [...] on filedocumented in this encounter Care Teams Shellfish Sorter Relationship Specialty Start Date End Date Ulises Guido MD PCP - General Family Medicine 05/19/20 documented as of this encounter
--- OUTSIDE RECORDS SUMMARY | 2024-11-05 12:00 | XMS_ITS | Continuity of Care Document ---
Author Organization [facility] Address [address] [place] [address] Phone Care Team Providers Care Train Announcer Name Role Phone Kalin Hammonds DO Unavailable Unavailable Advance Directives Directive Yes / No Effective Date File Name No Information Encounters Encounter Description Practice Location Reason(s) For Visit Diagnoses Date Provider Providers Copied on Encounter [facility], [address], [place], [place], [id number], [place] tel:[phone] [facility] No Information Cassius Johnson. [address] [facility], [place], [address], [place]. tel: [phone] Family History Family Member Type Diagnosis Age [...]
--- OUTSIDE RECORDS SUMMARY | 2024-11-05 12:00 | XMS_ITS | Clinical Summary ---
Author Organization [facility] Address [address] [place] [address] Care Team Providers Care Proposal Editor Name Role Phone Unavailable Primary Care Provider [...]
== END 2024-11-05 10:34 | disposition home or self-care (01) ==
PROVIDERS: PCP Family Medicine; Visit Provider Internal Medicine Hematology & Oncology
DX: R91.8 Other nonspecific abnormal finding of lung field (principal); C64.9 Malignant neoplasm of unspecified kidney, except renal pelvis
CPT/HCPCS: 71260; Q9967

== ENCOUNTER 2024-11-12 11:11 | Outpatient (CLI) | payer MEDICARE, SELFPAY ==
[2024-11-12 11:33] LABS: Basophils Percent Auto 0.5 % (0.2-1.2); Eosinophils Absolute Auto 0.2 K/mm3 (0-0.3); Eosinophils Percent Auto 2.3 % (0-4.4); Hematocrit 37.2 % (37.0-47.0); Hemoglobin 11.5 g/dL (12.0-15.0); Immature Granulocyte Absolute 0.03 K/mm3 (0.00-0.031); Immature Granulocyte Percent A 0.5 % (0-0.5); Lymphocytes Absolute Auto 1.34 K/mm3 (0.9-3.2); Lymphocytes Percent Auto 20.8 % (18.3-44.2); Mean Corpuscular HGB Conc 30.9 g/dl (32-36); Mean Corpuscular Hemoglobin 27.6 pg (26-34); Mean Corpuscular Volume 89.2 fl (80-100); Mean Platelet Volume 9.9 fl (7.4-10.4); Monocytes Absolute Auto 0.3 K/mm3 (0.1-0.6); Monocytes Percent Auto 4.8 % (2.6-8.5); Neutrophils Absolute Auto 4.6 K/mm3 (1.3-6.7); Neutrophils Percent Auto 71.1 % (45.5-73.1); Platelet Count Result 219 k/mm3 (150-375); Red Blood Count 4.17 M/mm3 (4.2-5.4); Red Cell Distribution Width 14.9 % (11.5-14.5); White Blood Count 6.4 K/mm3 (4.5-10.0)
[2024-11-12 11:35] LABS: Blood Urea Nitrogen 11 mg/dL (8-26); Carbon Dioxide 26 mmol/L (22-30); Chloride 101 mmol/L (98-109); Estimated Glomerular Filt Rate 33; Glucose 148 mg/dL (70-105); Ionized Calcium (POC) 1.16 mmol/L (1.11-1.31); Potassium 3.3 mmol/L (3.5-4.9); Sodium 141 mmol/L (138-146)
[2024-11-12 12:34] LABS: Alanine Aminotransferase 30 U/L (6-35); Albumin Level 4.1 g/dL (3.5-5.1); Alkaline Phosphatase 85 U/L (38-126); Anion Gap 13 mmol/L (4-12); Aspartate Amino Transferase 34 U/L (14-36); Bilirubin,Total 0.6 mg/dL (0.2-1.3); Blood Urea Nitrogen 12 mg/dL (7-17); Carbon Dioxide 25 mmol/L (22-30); Chloride 102 mmol/L (98-107); Estimated Glomerular Filt Rate 36; Glucose 148 mg/dL (65-110); Potassium 3.4 mmol/L (3.4-5.0); Sodium 140 mmol/L (137-145)
--- OUTSIDE RECORDS SUMMARY | 2024-11-12 12:50 | XMS_ITS | Clinical Summary ---
Author Organization [facility] Peter marie [facility] Address [address] [place] [address] Care Team Providers Care Ginner Helper Name Role Phone Ulises Guido MD Primary Care Provider [phone] Allergies Active Allergy Reactions Criticality Noted Date [...] Tablet Take 3 mg by mouth. Active omeprazole (PriLOSEC) 20 mg Capsule, Delayed Release(E.C.) Take 20 mg by mouth daily. Active furosemide (LASIX) 20 mg tablet Take 20 mg by mouth daily. Active ALPRAZolam (XANAX) 0.5 mg tablet Take 0.5 mg by mouth nightly as needed for Anxiety. Active codeine-guaiFE Nesin (ROBITUSSIN-AC ) 10-100 mg/5 mL Liquid TAKE 10 MILLILITERS [...] NSAIDS (ALEVE OR IBUPROFEN ETC) 2 Active traMADoL (ULTRAM) 50 mg tablet TAKE 1 TABLET BY MOUTH EVERY 4 HOURS 2 Active sertraline (ZOLOFT) 100 mg tablet Take 120 mg by mouth 2 times daily. Active aspirin (ECOTRIN EC) 81 mg Tablet, Delayed Release (E.C.) Take 81 mg by mouth daily. Active aspirin (BERNARD) 325 mg tablet Take 325 mg by mouth daily. 025 Discontinu ed(Alterna te therapy prescribed ) Eliquis 5 mg tablet Take 5 mg by mouth 2 times daily. 2 025 Discontinu ed(Alterna te therapy prescribed ) Active Problems Problem Noted Date Diagnosed Date Non-small cell cancer of right lung 09/09/2021 Encounters Date Type Department Care Team Description 11/12/2024 11:30 AM CDT Office Visit [facility] Oncology and Hematology [address] [place] [address] Bassem Benitez MD Non-small cell lung cancer, unspecified laterality (CMS/HCC) (Primary Dx) 11/06/2024 Orders Only [facility] Oncology and Hematology Tab [address] [place] [address] Bassem Benitez MD 11/02/2024 External Device Data STL ABSTRACTION Provider, [...] on file Legal Sex Female 11:17 AM 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 Gender Identity Not on file Sexual Orientation Not on file Last Filed Vital Signs Vital Sign Reading Time Taken Comments Blood Pressure 196/95 11/12/2024 11:49 AM CDT Pulse 82 11/12/2024 11:42 AM CDT Temperature 35.9 C (96.7 F) 11/12/2024 11:42 AM CDT Respiratory Rate 15 11/12/2024 11:42 AM CDT Oxygen Saturation 97% 11/12/2024 11:42 AM CDT Inhaled Oxygen Concentration - - Weight 67.8 kg (149 lb 6.4 oz) 11/12/2024 11:42 AM CDT Height 149.9 cm (4' 11 ) 04/19/2022 11:34 AM CDT Body Mass Index 30.18 04/19/2022 11:34 AM CDT Plan of Treatment Upcoming Encounters Date Type Department Care Team (Late st Contact Info) Description 05/22/2025 11:00 AM CDT Office Visit [facility] Oncology and Hematology - Tab [address] [place] [address] [facility] [address] [place] [address] Bassem Benitez MD [address] [facility] [address] [place] [address] Health Maintenance Due Date Last Done Comments DTAP/TDAP/TD VACCINES (1 - Tdap) 1957 PNEUMOCOCCAL VACCINE 50+ YEARS (1 of 1 - PCV) 02/02/19 88 ZOSTER VACCINE (1 of 2) 02/03/1988 OSTEOPOROSIS SCREENING 2003 RSV VACCINE (60+ or ) (1 - 1-dose 75+ series) 2013 INFLUENZA VACCINE (#1) 2024 [place] Prev entative Visit/Annual Wellness Visit 08/28/2024 Procedures Procedure Name Priority Date/Time Associated Diagnosis Comments CT CHEST W CONTRAST Routine 11/05/2024 8:58 AM CDT from Last 3 Months Results * CT CHEST W CONTRAST (11/05/2024 8:58 AM CDT) Anatomical Region Laterality Modality Chest Other us Bassem Benitez MD CT ORDERABLES Final Result from Last 3 Months Insurance [facility] [id number] [facility] Care Teams Ginner Helper Relationship Specialty Start Date End Date Ulises Guido MD [address] [place] [address] PCP - General Family Practice 08/19/21
--- OUTSIDE RECORDS SUMMARY | 2024-11-12 12:50 | XMS_ITS | Clinical Summary ---
Author Organization [facility] Address [address] [place] [address] Care Team Providers Care Vp Business Development Name Role Phone Unavailable Primary Care Provider [...]
--- OUTSIDE RECORDS SUMMARY | 2024-11-12 12:50 | XMS_ITS | Encounter Summary ---
Author Organization [facility] Address [address] [place] [address] Care Team Providers Care Inside Sales Advisor Name Role Phone Ulises Guido MD Primary Care Provider [phone] Encounter Details Date Type Department Care Team (Late st Contact Info) Description 12/06/2023 Orders Only [facility] Health Information Management [address] [place] [address] Scanning, Provider Social History Tobacco Use Types Packs/Day Years Used Date Smoking Tobacco: Never Smokeless Tobacco: Never Alcohol Use Standard Drinks/Week Comments No 0 (1 standard drink = 0.6 oz pur e alcohol) Comments Unknown Sex and Gender Information Value Date Recorded Sex Assigned at Not on file Legal Sex Female 3:40 AM PRODUCT OPERATIONS ASSOCIATE Gender Identity Not on file Sexual Orientation [...] on filedocumented in this encounter Care Teams Inside Sales Advisor Relationship Specialty Start Date End Date Ulises Guido MD PCP - General Family Medicine 05/19/20 documented as of this encounter
--- OUTSIDE RECORDS SUMMARY | 2024-11-12 12:50 | XMS_ITS | Encounter Summary ---
Author Organization [facility] Address [address] [place] [address] Care Team Providers Care Professor Criminal Justice Name Role Phone Ulises Guido MD Primary Care Provider [phone] Encounter Details Date Type Department Care Team (Late st Contact Info) Description 12/07/2023 Orders Only [facility] Health Information Management [address] [place] [address] Scanning, Provider Social History Tobacco Use Types Packs/Day Years Used Date Smoking Tobacco: Never Smokeless Tobacco: Never Alcohol Use Standard Drinks/Week Comments No 0 (1 standard drink = 0.6 oz pur e alcohol) Comments Unknown Sex and Gender Information Value Date Recorded Sex Assigned at Not on file Legal Sex Female 3:40 AM VOCATIONAL 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
--- OUTSIDE RECORDS SUMMARY | 2024-11-12 12:51 | XMS_ITS | Continuity of Care Document ---
Author Organization [facility] Address [address] [place] [address] Phone Care Team Providers Care Foam Fabricator Name Role Phone Kalin Hammonds DO Unavailable Unavailable Advance Directives Directive Yes / No Effective Date File Name No Information Encounters Encounter Description Practice Location Reason(s) For Visit Diagnoses Date Provider Providers Copied on Encounter [facility], [address], [place], [place], [id number], [place] tel:[phone] [facility] No Information Cassius Johnson. [address] [facility], [place], [address], [place]. tel: [phone] Family History Family Member Type Diagnosis Age [...]
--- OUTSIDE RECORDS SUMMARY | 2024-11-12 12:51 | XMS_ITS | Referral Summary ---
Author Organization [facility] [place] [address] [place] [address] 162 Address [address] [place] [address] Care Team Providers Care Wildlife Policy Professional Name Role Phone Ulises Guido MD Primary Care Provider [phone] Encounters Date Type Department Care Team Description 09/11/2024 Telephone [facility] [employer] Cardiology [address] [facility] [address] [place] [address] Freddie Velasco MD 09/10/2024 11:15 AM [employer]CTOR [employer] Office Visit [facility] [employer] Cardiology [address] [place] [address] Freddie Velasco MD Paroxysmal SVT (supraventricular tachycardia) (Primary Dx); Nonrheumatic aortic valve insufficiency; Paroxysmal atrial fibrillation (HCC) 08/29/2024 Telephone [facility] Cardiology [address] [facility] [address] [place] [address] Freddie Velasco MD from Last [...] on file Legal Sex Female 3:40 AM [employer]CTOR [employer] Gender Identity Not on file Sexual Orientation Not on file Last Filed Vital Signs Vital Sign Reading Time Taken Comments Blood Pressure 180/78 09/10/2024 10:49 AM INSTRUCTOR [employer]OL Pulse 92 09/10/2024 10:49 AM [employer]CTOR [employer] Temperature - - Respiratory Rate - - Oxygen Saturation 99% 09/10/2024 10:49 AM [employer] Inhaled Oxygen Concentration - - Weight 69 kg (152 lb 1.6 oz) 09/10/2024 10:49 AM [employer] Height 152.4 cm (5') 09/10/2024 10:49 AM [employer]CTOR [employer] Body Mass Index 29.7 09/10/2024 10:49 AM [employer]CTOR [employer] Plan of Treatment Not on file Procedures Procedure Name Priority Date/Time Associated Diagnosis Comments ECG 12-LEAD Routine 09/10/2024 3:08 PM [employer]CTOR [employer] Paroxysmal SVT (supraventricular tachycardia) from Last 3 Months Results * ECG 12 lead (09/10/2024 3:08 PM [employer]) Freddie Velasco MD ECG ORDERABLES Final Re sult from Last 3 Months Insurance [facility] [employer] [facility] [employer] Care Teams Wildlife Policy Professional Relationship Specialty Start Date End Date Ulises Guido MD PCP - General Family Medicine 05/19/20
--- OUTSIDE RECORDS SUMMARY | 2024-11-12 12:51 | XMS_ITS | Encounter Summary ---
Author Organization [facility] [employer] [facility] Address [address] [place] [address] Care Team Providers Care Document Imaging Manager Name Role Phone Ulises Guido MD Primary Care Provider Encounter Details Date Type Department Care Team (Late Contact Info) Description 11/06/2024 Orders Only [facility] Oncology and Hematology [facility] [address] [place] [address] Bassem Benitez MD [facility] [employer] [address] [place] [address] Social History Tobacco Use Types Packs/Day Years Used Date Smoking Tobacco: Never Smokeless Tobacco: Never Alcohol Use Standard Drinks/Week Comments Never 0 (1 standard drink = 0.6 oz pur e alcohol) Comments Unknown Sex and Gender Information Value Date Recorded Sex Assigned at Not on file Legal Sex Female 11:17 AM DEVELOPER PROGRAMMER ANALYST Gender Identity Not on file Sexual Orientation Not on file documented as of this encounter Plan of Treatment Upcoming Encounters Date Type Department Care Team (Late st Contact Info) Description 05/22/2025 11:00 AM CDT Office Visit [facility] Oncology and Hematology Tab [address] [place] [address] Bassem Benitez MD [address] [place] [address] documented as of this encounter Procedures Procedure Name Priority Date/Time Associated Diagnosis Comments CT CHEST W CONTRAST Routine 11/05/2024 8:58 AM CDT documented in this encounter Results * CT CHEST W CONTRAST (11/05/2024 8:58 AM CDT) Anatomical Region Laterality Modality Chest Other us Bassem Benitez MD CT ORDERABLES Final Result documented in this encounter Visit Diagnoses Not on filedocumented in this encounter Care Teams Document Imaging Manager Relationship Specialty Start Date End Date Ulises Guido MD [address] [place] [address] PCP - General Family Practice 08/19/21 documented as of this encounter
--- OUTSIDE RECORDS SUMMARY | 2024-11-12 12:51 | XMS_ITS | Encounter Summary ---
Author Organization [facility] Address [address] [place] [address] Care Team Providers Care Gin Clerk Name Role Phone Ulises Guido MD Primary Care Provider [phone] Reason for Referral * CT Scan (Routine) - Pending Review Specialty Diagnoses / Procedures Referred By Tarah t Referred To Contact Diagnoses Non-small cell lung cancer, unspecified laterality (CMS/HCC) Procedures CT CHEST W CONTRAST Bassem Benitez MD [address] [place] [address] Phone: tel: fax: [place] [phone] Referral ID Status Reason Start Date Expiration Date Visits Requested Visits Authorized [id number] Pending Review [facility] CTS 11/12/2024 12/13/2025 1 1 Encounter Details Date Type Department Care Team (Late st Contact Info) Description 11/12/2024 11:30 AM CDT Office Visit [facility] Oncology and Hematology [address] [address] Bassem Benitez MD [address] [place] [address] Non-small cell lung cancer, unspecified laterality (CMS/HCC) (Primary Dx) Social History Tobacco Use Types Packs/Day Years Used Date Smoking Tobacco: Never Smokeless Tobacco: Never Tobacco Cessation:Counseling Given: Not Answered Alcohol Use Standard Drinks/Week Comments Never 0 (1 standard drink = 0.6 oz pur e alcohol) Comments Unknown Sex and Gender Information Value Date Recorded Sex Assigned at Not on file Legal Sex Female 11:17 AM LUGGER Gender Identity Not on file Sexual Orientation Not on file documented as of this encounter Last Filed Vital Signs Vital Sign Reading Time Taken Comments Blood Pressure 196/95 11/12/2024 11:49 AM CDT Pulse 82 11/12/2024 11:42 AM CDT Temperature 35.9 C (96.7 F) 11/12/2024 11:42 AM CDT Respiratory Rate 15 11/12/2024 11:42 AM CDT Oxygen Saturation 97% 11/12/2024 11:42 AM CDT Inhaled Oxygen Concentration - - Weight 67.8 kg (149 lb 6.4 oz) 11/12/2024 11:42 AM CDT Height - - Body Mass Index 30.18 04/19/2022 11:34 AM CDT documented in this encounter Plan of Treatment Upcoming Encounters Date Type Department Care Team (Late st Contact Info) Description 05/22/2025 11:00 AM CDT Office Visit [facility] Oncology and Hematology [facility] [place] [place] [address] [facility] [address] [place] [address] Bassem Benitez MD [address] [facility] [address] [place] [address] Scheduled Orders Name Type Priority Associated Diagnoses Orde r Schedule CBC WITH DIFFERENTIAL Lab Stat Non-small cell lung cancer, unspecified laterality (CMS/HCC) Expected: 05/15/2025, Expires: 11/12/2025 COMPREHENSIVE METABOLIC PANEL Lab Stat Non-small cell lung cancer, unspecified laterality (CMS/HCC) Expected: 05/15/2025, Expires: 11/12/2025 CT CHEST W CONTRAST Imaging Routine Non-small cell lung cancer, unspecified laterality (CMS/HCC) Expected: 05/15/2025, Expires: 11/12/2025 documented as of this encounter Visit Diagnoses Diagnosis Non-small cell lung cancer, unspecified laterality (CMS/HCC)- Primary documented in this encounter Care Teams Gin Clerk Relationship Specialty Start Date End Date Ulises Guido MD [address] [place] [address] PCP - General Family Practice 08/19/21 documented as of this encounter
--- OUTSIDE RECORDS SUMMARY | 2024-11-12 12:51 | XMS_ITS | Clinical Summary ---
Author Organization [facility] [place] [address] [place] [address] Care Team Providers Care Counter Manager Name Role Phone Ulises Guido MD Primary Care Provider [phone] Allergies Active Allergy Reactions Criticality Noted Date [...] Type Department Care Team Description 09/11/2024 Telephone [facility] Cardiology [address] [place] [address] Freddie Velasco MD 09/10/2024 11:15 AM PRESSURIZATION MECHANIC Office Visit [facility] Cardiology [address] [place] [phone] Freddie Velasco MD Paroxysmal SVT (supraventricular tachycardia) (Primary Dx); Nonrheumatic aortic valve insufficiency; Paroxysmal atrial fibrillation (HCC) 08/29/2024 Telephone [facility] Cardiology [address] [place] [phone] Freddie Velasco MD from Last 3 Months [...] on file Legal Sex Female 3:40 AM PRESSURIZATION MECHANIC Gender Identity Not on file Sexual Orientation Not on file Obstetrics History Last Filed Vital Signs Vital Sign Reading Time Taken Comments Blood Pressure 180/78 09/10/2024 10:49 AM PRESSURIZATION MECHANIC Pulse 92 09/10/2024 10:49 AM PRESSURIZATION MECHANIC Temperature - - Respiratory Rate - - Oxygen Saturation 99% 09/10/2024 10:49 AM PRESSURIZATION MECHANIC Inhaled Oxygen Concentration - - Weight 69 kg (152 lb 1.6 oz) 09/10/2024 10:49 AM PRESSURIZATION MECHANIC Height 152.4 cm (5') 09/10/2024 10:49 AM PRESSURIZATION MECHANIC Body Mass Index 29.7 09/10/2024 10:49 AM PRESSURIZATION MECHANIC Plan of Treatment Health Maintenance Due Date [...] Comments ECG 12-LEAD Routine 09/10/2024 3:08 PM PRESSURIZATION MECHANIC Paroxysmal SVT (supraventricular tachycardia) from Last 3 Months Results * ECG 12 lead (09/10/2024 3:08 PM PRESSURIZATION MECHANIC) us Freddie Velasco MD ECG ORDERABLES Final Re sult from Last 3 Months Insurance [employer] [facility] Care Teams Counter Manager Relationship Specialty Start Date End Date Ulises Guido MD PCP - General Family Medicine 05/19/20
== END 2024-11-12 11:12 | disposition home or self-care (01) ==
LOC: ANHLAB 11:13
PROVIDERS: PCP Family Medicine; Visit Provider Internal Medicine Hematology & Oncology
DX: C34.90 Malignant neoplasm of unspecified part of unspecified bronchus or lung (principal)
CPT/HCPCS: 36415; 80047; 80053; 85025

== ENCOUNTER 2024-12-11 11:47 | Emergency (ER) | payer MEDICARE, SELFPAY ==
--- NOTE | ~2024-12-11 | CT_ITS ---
EXAMINATION: CT facial bones w con DATE: 12/11/2024 14:50 INDICATION: Left mandibular swelling TECHNIQUE: Computed tomography (CT) of the facial bones and maxillofacial region was performed with 1 00 mL Omnipaque-350 intravenous contrast. Coronal reconstructions were obtained. Automated exposure c ontrol and iterative reconstruction technique were employed. The dose-length product was 338.02 mGy-c m. COMPARISON: None. FINDINGS: No maxillofacial fractures or erosions. There are multiple absent teeth at the mandible and maxilla i ncluding the majority the tip of the maxilla. No periapical erosions at the remaining teeth. Soft tis sues are unremarkable with no evident inflammatory stranding. No abscess or other abnormal fluid es ections. Mild mucosal thickening in the right maxillary sinus. The middle ear cavities and visualized portion of the bilateral mastoid air cells are clear. Bilateral submandibular glands and visualized portion of the parotid glands are normal and symmetric. Atherosclerotic calcifications at the bilater al common carotid artery bifurcations with mild <50% stenosis. Moderate cervical spondylosis. IMPRESSION: 1. No maxillofacial soft tissue edema/stranding or abscess. Reviewed, dictated and finalized at location A.
[2024-12-11 12:02] VITALS: BP 179/85; PULSE 84; RESP 16; TEMP 36.6; O2SAT 98
[2024-12-11 12:23] VITALS: BP 186/91; PULSE 80; RESP 16; TEMP 36.6; O2SAT 100
--- OUTSIDE RECORDS SUMMARY | 2024-12-11 13:07 | XMS_ITS | Clinical Summary ---
Author Organization [facility] [place] [address] Address [address] [place] [address] Care Team Providers Care [place] Specialty Foreign Food Name Role Phone Ulises Guido MD Primary Care Provider [phone] Allergies Active Allergy Reactions Criticality Noted Date [...] Encounters Date Type Department Care Team Description 12/06/2024 Telephone [facility] Medical [facility] Cardiology [address] [facility] [address] [place] [address] Freddie Velasco MD 11/21/2024 Telephone [facility] Cardiology [address] [facility] [address] [place] [address] Freddie Velasco MD from Last 3 Months [...] on file Legal Sex Female 3:40 AM WAREHOUSE TECHNICIAN Gender Identity Not on file Sexual Orientation Not on file Obstetrics History Last Filed Vital Signs Vital Sign Reading Time Taken Comments Blood Pressure 180/78 09/10/2024 10:49 AM WAREHOUSE TECHNICIAN Pulse 92 09/10/2024 10:49 AM WAREHOUSE TECHNICIAN Temperature - - Respiratory Rate - - Oxygen Saturation 99% 09/10/2024 10:49 AM WAREHOUSE TECHNICIAN Inhaled Oxygen Concentration - - Weight 69 kg (152 lb 1.6 oz) 09/10/2024 10:49 AM WAREHOUSE TECHNICIAN Height 152.4 cm (5') 09/10/2024 10:49 AM WAREHOUSE TECHNICIAN Body Mass Index 29.7 09/10/2024 10:49 AM WAREHOUSE TECHNICIAN Plan of Treatment Health Maintenance Due Date Last Done Comments Depression Screening 1938 Fall Risk Assessment 1940 Hepatitis B Screening 02/03/1956 Pneumococcal vaccine 65+ (1 of 1 - PCV) 02/03/1988 Zoster Vaccine (1 of 2) 02/03/1988 Well Visit 65+ 2003 DTaP/Tdap/Td Vaccine (1 - Tdap) 09/07/2016 7, 09/27/2005 Influenza Vaccine (Season Ended) 2025 06/11/2019, 06/23/2018, 06/10/2017, Additional history exists Insurance [employer] Care Teams [place] Specialty Foreign Food Relationship Specialty Start Date End Date Ulises Guido MD PCP - General Family Medicine 05/19/20
--- OUTSIDE RECORDS SUMMARY | 2024-12-11 13:07 | XMS_ITS | Continuity of Care Document ---
Author Organization [facility] Address [address] [place] [address] Phone Care Team Providers Care Fender Finisher Name Role Phone Kalin Hammonds DO Unavailable Unavailable Advance Directives Directive Yes / No Effective Date File Name No Information Encounters Encounter Description Practice Location Reason(s) For Visit Diagnoses Date Provider Providers Copied on Encounter [facility], [address], [place], [place], [id number], [place] tel:[phone] SEC [facility] No Information Cassius Johnson. [address] [facility], [place], [address], [place]. tel: [phone] Family History Family Member Type Diagnosis Age [...]
--- OUTSIDE RECORDS SUMMARY | 2024-12-11 13:07 | XMS_ITS | Clinical Summary ---
Author Organization [facility] Peter marie [facility] Address [address] [place] [address] Care Team Providers Care Silver Wrapper Name Role Phone Ulises Guido MD Primary Care Provider [phone] Allergies Active Allergy Reactions Criticality Noted Date [...] Encounters Date Type Department Care Team Description 11/13/2024 External Device Data STL ABSTRACTION Provider, Abstract 11/12/2024 11:30 AM CDT Office Visit [facility] Oncology and Hematology - [address] [place] [address] Bassem Benitez MD Non-small cell lung cancer, unspecified laterality (CMS/HCC) (Primary Dx) 11/06/2024 Orders Only [facility] Oncology and Hematology Tab [address] [place] [address] Bassem Benitez MD 11/02/2024 External Device Data [...] on file Legal Sex Female 11:17 AM ACCOUNT ANALYST Gender Identity Not on file Sexual [...] Description 05/22/2025 11:00 AM CDT Office Visit [facility] Oncology and Hematology - [place] [address] [place] [address] [facility] [address] [place] [address] Bassem Benitez MD [address] [facility] [address] [place] [address] Health Maintenance Due Date Last Done Comments DTAP/TDAP/TD VACCINES (1 - Tdap) 1957 PNEUMOCOCCAL VACCINE 50+ YEARS (1 of 1 - PCV) 02/02/19 88 ZOSTER VACCINE (1 of 2) 02/03/1988 OSTEOPOROSIS SCREENING 2003 RSV VACCINE (60+ or ) (1 - 1-dose 75+ series) 2013 INFLUENZA VACCINE (#1) 2024 [place] Prev entative Visit/Annual Wellness Visit 08/28/2024 Procedures Procedure Name Priority Date/Time Associated Diagnosis Comments CT CHEST W CONTRAST Routine 11/05/2024 8:58 AM CDT from Last 3 Months Results * CT CHEST W CONTRAST (11/05/2024 8:58 AM CDT) Anatomical Region Laterality Modality Chest Computed Tomogra phy Bassem Benitez MD CT ORDERABLES Final Result from Last 3 Months Insurance [employer] Care Teams Silver Wrapper Relationship Specialty Start Date End Date Ulises Gudio MD [address] [place] [address] PCP - General Family Practice 08/19/21
--- OUTSIDE RECORDS SUMMARY | 2024-12-11 13:07 | XMS_ITS | Clinical Summary ---
Author Organization [facility] Address [address] [place] [address] Care Team Providers Care Inspector Eyeglass Frames Name Role Phone Unavailable Primary Care Provider [...] Annual Medicare Wellness Visit 2003 Pneumococcal Vaccine: 50+ Ye ars (1 of 1 - PCV) 2003 RSV Immunization or 60+ Years (1 - 1-dose 75+ series) 2013 COVID-19 Vaccine ( - 2023-2 5 season) 2024 Meningococcal B Vaccine Aged Out No l onger eligible based on patient's age to complete this topic Meningococcal Vaccine Aged Out No judi von eligible based on patient's age to complete this topic RSV Immunizations Under 20 Months Aged Out No longer eligible based on patient's age to complete this topic Insurance [employer]
--- OUTSIDE RECORDS SUMMARY | 2024-12-11 13:07 | XMS_ITS | Encounter Summary ---
Author Organization [facility] Healthcare Address [address] [place] [address] Care Team Providers Care Director Of Software Development Name Role Phone Ulises Guido MD Primary Care Provider [phone] Encounter Details Date Type Department Care Team (Late st Contact Info) Description 12/06/2023 Orders Only [facility] Health Information Management [address] [place] [address] Scanning, Provider Social History Tobacco Use Types Packs/Day Years Used Date Smoking Tobacco: Never Smokeless Tobacco: Never Alcohol Use Standard Drinks/Week Comments No 0 (1 standard drink = 0.6 oz pur e alcohol) Comments Unknown Sex and Gender Information Value Date Recorded Sex Assigned at Not on file Legal Sex Female 3:40 AM CARE TRANSITIONS NURSE Gender Identity Not on file Sexual Orientation [...] on filedocumented in this encounter Care Teams Director Of Software Development Relationship Specialty Start Date End Date Ulises Guido MD PCP - General Family Medicine 05/19/20 documented as of this encounter
--- OUTSIDE RECORDS SUMMARY | 2024-12-11 13:07 | XMS_ITS | Referral Summary ---
Author Organization [facility] [address] [place] [address] 162 [address] [place] [address] Care Team Providers Care Meat Cutter Apprentice Name Role Phone Ulises Guido MD Primary Care Provider [phone] Encounters Date Type Department Care Team Description 12/06/2024 Telephone [facility] Medical [facility] Cardiology [address] [facility] [address] [place] [address] Freddie Velasco MD 11/21/2024 Telephone [facility] Cardiology [address] [place] [address] Freddie Velasco MD from Last [...] on file Legal Sex Female 3:40 AM LABORER ADJUSTABLE STEEL JOIST Gender Identity Not on file Sexual Orientation Not on file Last Filed Vital Signs Vital Sign Reading Time Taken Comments Blood Pressure 180/78 09/10/2024 10:49 AM LABORER ADJUSTABLE STEEL JOIST Pulse 92 09/10/2024 10:49 AM LABORER ADJUSTABLE STEEL JOIST Temperature - - Respiratory Rate - - Oxygen Saturation 99% 09/10/2024 10:49 AM LABORER ADJUSTABLE STEEL JOIST Inhaled Oxygen Concentration - - Weight 69 kg (152 lb 1.6 oz) 09/10/2024 10:49 AM LABORER ADJUSTABLE STEEL JOIST Height 152.4 cm (5') 09/10/2024 10:49 AM LABORER ADJUSTABLE STEEL JOIST Body Mass Index 29.7 09/10/2024 10:49 AM LABORER ADJUSTABLE STEEL JOIST Plan of [place] [id number] [place] [id number] [employer] Care Teams Meat Cutter Apprentice Relationship Specialty Start Date End Date Ulises Guido MD PCP - General Family Medicine 05/19/20
--- OUTSIDE RECORDS SUMMARY | 2024-12-11 13:07 | XMS_ITS | Encounter Summary ---
Author Organization [facility] Healthcare Address [address] [place] [address] Care Team Providers Care Biology Teacher Name Role Phone Ulises Guido MD Primary Care Provider [phone] Encounter Details Date Type Department Care Team (Late st Contact Info) Description 12/07/2023 Orders Only [facility] Health Information Management [address] [place] [address] Scanning, Provider Social History Tobacco Use Types Packs/Day Years Used Date Smoking Tobacco: Never Smokeless Tobacco: Never Alcohol Use Standard Drinks/Week Comments No 0 (1 standard drink = 0.6 oz pur e alcohol) Comments Unknown Sex and Gender Information Value Date Recorded Sex Assigned at Not on file Legal Sex Female 3:40 AM FIELD GAUGER Gender Identity Not on file Sexual Orientation [...] on filedocumented in this encounter Care Teams Biology Teacher Relationship Specialty Start Date End Date Ulises Guido MD PCP - General Family Medicine 05/19/20 documented as of this encounter
[2024-12-11 14:09] VITALS: BP 196/84; PULSE 80; RESP 16; TEMP 36.6; O2SAT 98
[2024-12-11 14:18] LABS: Basophils Percent Auto 0.5 % (0.2-1.2); Eosinophils Absolute Auto 0.2 K/mm3 (0-0.3); Eosinophils Percent Auto 2.1 % (0-4.4); Hemoglobin 12.6 g/dL (12.0-15.0); Immature Granulocyte Absolute 0.03 K/mm3 (0.00-0.031); Immature Granulocyte Percent A 0.4 % (0-0.5); Lymphocytes Absolute Auto 1.55 K/mm3 (0.9-3.2); Lymphocytes Percent Auto 20.2 % (18.3-44.2); Mean Corpuscular HGB Conc 30.7 g/dl (32-36); Mean Corpuscular Hemoglobin 26.9 pg (26-34); Mean Corpuscular Volume 87.6 fl (80-100); Mean Platelet Volume 10.4 fl (7.4-10.4); Monocytes Absolute Auto 0.5 K/mm3 (0.1-0.6); Monocytes Percent Auto 6.9 % (2.6-8.5); Neutrophils Absolute Auto 5.4 K/mm3 (1.3-6.7); Neutrophils Percent Auto 69.9 % (45.5-73.1); Platelet Count Result 246 k/mm3 (150-375); Red Blood Count 4.68 M/mm3 (4.2-5.4); Red Cell Distribution Width 14.8 % (11.5-14.5); White Blood Count 7.7 K/mm3 (4.5-10.0)
[2024-12-11 14:31] LABS: Alanine Aminotransferase 32 U/L (6-35); Albumin Level 4.5 g/dL (3.5-5.1); Alkaline Phosphatase 96 U/L (38-126); Anion Gap 11 mmol/L (4-12); Aspartate Amino Transferase 42 U/L (14-36); Bilirubin,Total 0.5 mg/dL (0.2-1.3); Blood Urea Nitrogen 11 mg/dL (7-17); Calcium 9.6 mg/dL (8.4-10.2); Carbon Dioxide 29 mmol/L (22-30); Chloride 103 mmol/L (98-107); Estimated Glomerular Filt Rate 40; Glucose 108 mg/dL (65-110); Magnesium 2.2 mg/dL (1.6-2.3); Potassium 3.6 mmol/L (3.4-5.0); Sodium 143 mmol/L (137-145)
--- OUTSIDE RECORDS SUMMARY | 2024-12-11 15:03 | XMS_ITS | Encounter Summary ---
Author Organization [facility] Healthcare Address [address] [place] [address] Care Team Providers Care Monorail Helper Name Role Phone Ulises Guido MD Primary Care Provider [phone] Encounter Details Date Type Department Care Team (Late st Contact Info) Description 12/06/2023 Orders Only [facility] Health Information Management [address] [place] [address] Scanning, Provider Social History Tobacco Use Types Packs/Day Years Used Date Smoking Tobacco: Never Smokeless Tobacco: Never Alcohol Use Standard Drinks/Week Comments No 0 (1 standard drink = 0.6 oz pur e alcohol) Comments Unknown Sex and Gender Information Value Date Recorded Sex Assigned at Not on file Legal Sex Female 3:40 AM DISPATCH COORDINATOR Gender Identity Not on file Sexual Orientation [...] on filedocumented in this encounter Care Teams Monorail Helper Relationship Specialty Start Date End Date Ulises Guido MD PCP - General Family Medicine 05/19/20 documented as of this encounter
--- OUTSIDE RECORDS SUMMARY | 2024-12-11 15:03 | XMS_ITS | Encounter Summary ---
Author Organization [facility] Healthcare Address [address] [place] [address] Care Team Providers Care Clamshell Engineer Name Role Phone Ulises Guido MD Primary Care Provider [phone] Encounter Details Date Type Department Care Team (Late st Contact Info) Description 12/07/2023 Orders Only [facility] Health Information Management [address] [place] [address] Scanning, Provider Social History Tobacco Use Types Packs/Day Years Used Date Smoking Tobacco: Never Smokeless Tobacco: Never Alcohol Use Standard Drinks/Week Comments No 0 (1 standard drink = 0.6 oz pur e alcohol) Comments Unknown Sex and Gender Information Value Date Recorded Sex Assigned at Not on file Legal Sex Female 3:40 AM GROUNDWATER PROGRAMS DIRECTOR Gender Identity Not on file Sexual Orientation [...] on filedocumented in this encounter Care Teams Clamshell Engineer Relationship Specialty Start Date End Date Ulises Guido MD PCP - General Family Medicine 05/19/20 documented as of this encounter
--- OUTSIDE RECORDS SUMMARY | 2024-12-11 15:03 | XMS_ITS | Clinical Summary ---
Author Organization [facility] Address [address] [place] [address] Care Team Providers Care Carpenter General Name Role Phone Unavailable Primary Care Provider [...]
--- OUTSIDE RECORDS SUMMARY | 2024-12-11 15:04 | XMS_ITS | Continuity of Care Document ---
Author Organization [facility] Address [address] [place] [address] Phone Care Team Providers Care Carburetor Repairer Name Role Phone Kalin Hammonds DO Unavailable Unavailable Advance Directives Directive Yes / No Effective Date File Name No Information Encounters Encounter Description Practice Location Reason(s) For Visit Diagnoses Date Provider Providers Copied on Encounter [facility], [address], [place], [place], [id number], [place] tel:[phone] SEC [facility] No Information Cassius Johnson. [address] [facility], [place], [address], [place]. tel: [phone] Family History Family Member Type Diagnosis Age [...]
--- OUTSIDE RECORDS SUMMARY | 2024-12-11 15:04 | XMS_ITS | Clinical Summary ---
Author Organization [facility] Peter marie [facility] Address [address] [place] [address] Care Team Providers Care Frame Fixer Name Role Phone Ulises Guido MD Primary Care Provider [phone] Allergies Active Allergy Reactions Criticality Noted Date [...] Abstract 11/12/2024 11:30 AM CDT Office Visit [facility] Oncology and Hematology - [address] [place] [address] Bassem Benitez MD Non-small cell lung cancer, unspecified laterality (CMS/HCC) (Primary Dx) 11/06/2024 Orders Only [facility] Oncology and Hematology Tab [address] [place] [address] Bassem Benitez MD 11/02/2024 External Device Data [...] on file Legal Sex Female 11:17 AM BELT REPAIRER Gender Identity Not on file Sexual Orientation [...] Description 05/22/2025 11:00 AM CDT Office Visit [facility] Oncology and Hematology - [place] [address] [place] [address] [facility] [address] [place] [address] Bassem Benitez MD [address] [facility] [address] [place] [address] Health Maintenance Due Date Last Done Comments DTAP/TDAP/TD VACCINES (1 - Tdap) 1957 PNEUMOCOCCAL VACCINE 50+ YEARS (1 of 1 - PCV) 02/02/19 88 ZOSTER VACCINE (1 of 2) 02/03/1988 OSTEOPOROSIS SCREENING 2003 RSV VACCINE (60+ or ) (1 - 1-dose 75+ series) 2013 INFLUENZA VACCINE (#1) 2024 Medicare Advantage (SD) Prev entative Visit/Annual Wellness Visit 08/28/2024 Procedures Procedure Name Priority Date/Time Associated Diagnosis Comments CT CHEST W CONTRAST Routine 11/05/2024 8:58 AM CDT from Last 3 Months Results * CT CHEST W CONTRAST (11/05/2024 8:58 AM CDT) Anatomical Region Laterality Modality Chest Computed Tomogra phy Bassem Benitez MD CT ORDERABLES Final Result from Last 3 Months Insurance [facility] Address: [facility] [id number] [place] [address] Care Teams Frame Fixer Relationship Specialty Start Date End Date Ulises Guido MD [address] [place] [address] PCP - General Family Practice 08/19/21
--- OUTSIDE RECORDS SUMMARY | 2024-12-11 15:04 | XMS_ITS | Referral Summary ---
Author Organization [facility] [address] [place] [address] [address] [place] [address] Care Team Providers Care Armature Winder Helper Repair Name Role Phone Ulises Guido MD Primary Care Provider [phone] Encounters Date Type Department Care Team Description 12/06/2024 Telephone [facility] Medical [facility] Cardiology [address] [facility] [address] [place] [address] Freddie Velasco MD 11/21/2024 Telephone [facility] Cardiology [address] [place] [address] Freddie Velasco MD from Last [...] on file Legal Sex Female 3:40 AM HEATER HELPER FORGE Gender Identity Not on file Sexual Orientation Not on file Last Filed Vital Signs Vital Sign Reading Time Taken Comments Blood Pressure 180/78 09/10/2024 10:49 AM HEATER HELPER FORGE Pulse 92 09/10/2024 10:49 AM HEATER HELPER FORGE Temperature - - Respiratory Rate - - Oxygen Saturation 99% 09/10/2024 10:49 AM HEATER HELPER FORGE Inhaled Oxygen Concentration - - Weight 69 kg (152 lb 1.6 oz) 09/10/2024 10:49 AM HEATER HELPER FORGE Height 152.4 cm (5') 09/10/2024 10:49 AM HEATER HELPER FORGE Body Mass Index 29.7 09/10/2024 10:49 AM HEATER HELPER FORGE Plan of [place] [id number] [place] [address] [facility] [facility] [employer] Care Teams Armature Winder Helper Repair Relationship Specialty Start Date End Date Ulises Guido MD PCP - General Family Medicine 05/19/20
--- OUTSIDE RECORDS SUMMARY | 2024-12-11 15:04 | XMS_ITS | Clinical Summary ---
Author Organization [facility] [place] [address] Address [address] [place] [address] Care Team Providers Care Para Educator Name Role Phone Ulises Guido MD Primary Care Provider [phone] Allergies Active Allergy Reactions Criticality Noted Date [...] Type Department Care Team Description 12/06/[address] [facility] Medical [facility] Cardiology [address] [facility] [address] [place] [address] Freddie Velasco MD 11/21/2024 Telephone [facility] Cardiology [address] [facility] [address] [place] [address] Freddie Velasco MD from Last 3 Months [...] on file Legal Sex Female 3:40 AM EXHAUST TENDER Gender Identity Not on file Sexual Orientation Not on file Obstetrics History Last Filed Vital Signs Vital Sign Reading Time Taken Comments Blood Pressure 180/78 09/10/2024 10:49 AM EXHAUST TENDER Pulse 92 09/10/2024 10:49 AM EXHAUST TENDER Temperature - - Respiratory Rate - - Oxygen Saturation 99% 09/10/2024 10:49 AM EXHAUST TENDER Inhaled Oxygen Concentration - - Weight 69 kg (152 lb 1.6 oz) 09/10/2024 10:49 AM EXHAUST TENDER Height 152.4 cm (5') 09/10/2024 10:49 AM EXHAUST TENDER Body Mass Index 29.7 09/10/2024 10:49 AM EXHAUST TENDER Plan of Treatment Health Maintenance Due Date Last Done Comments Depression Screening 1938 Fall Risk Assessment 1938 Hepatitis B Screening 02/03/1956 Pneumococcal vaccine 65+ (1 of 1 - PCV) 02/03/1988 Zoster Vaccine (1 of 2) 02/03/1988 Well Visit 65+ 2003 DTaP/Tdap/Td Vaccine (1 - Tdap) 09/07/2016 7, 09/27/2005 Influenza Vaccine (Season Ended) 2025 06/11/2019, 06/23/2018, 06/10/2017, Additional history exists Insurance [employer] Care Teams Para Educator Relationship Specialty Start Date End Date Ulises Guido MD PCP - General Family Medicine 05/19/20
[2024-12-11 15:17] VITALS: BP 198/78; PULSE 86; RESP 18; TEMP 36.6; O2SAT 98
--- NOTE | 2024-12-11 15:23 | ED_ITS ---
HPI - General Adult General Chief complaint: Weakness Stated complaint: Weakness, nausea, dizzy-poss due to meds Time Seen by Provider: 12/11/24 13:39 History of Present Illness HPI narrative: Patient is 84-year-old female who presents emergency department with a plethora of complaints the patient reports that she recently started a new blood pressure medicine and reports that she has been feeling very weak tired reports she feels lightheaded at times but also reports that she also has had area of swelling on left luu area. Patient states that she was recently started on a new blood pressure medicine and her symptoms started after that Related Data Home Medications ?Medication ?Instructions ?Recorded ?Confirmed ?Last Taken ?Type melatonin 3 mg tablet 3 mg PO HS PRN Insomnia 10/31/21 11/28/24 12/05/23 History diclofenac sodium 1 % topical gel 1 ea topical DAILY 06/02/24 11/28/24 Unknown History lovastatin 20 mg tablet 20 mg PO DAILY 06/02/24 11/28/24 Unknown History amiodarone 200 mg tablet (Pacerone) 200 mg PO Q12H 10/25/24 11/28/24 Unknown History Allergies Allergy/AdvReac Type Severity Reaction Status Date / Time Penicillins Allergy Severe Hives Verified 11/28/24 12:49 gabapentin Allergy Intermediate Chest Pain Verified 11/28/24 12:49 nitrofurantoin (From Allergy Intermediate Hives Verified 11/28/24 12:49 Macrobid) Quinolones Allergy Mild Unknown Verified 11/28/24 12:49 cefprozil Allergy Unknown Unknown Verified 11/28/24 12:49 cefuroxime Allergy Unknown Unknown Verified 11/28/24 12:49 Cephalosporins Allergy Unknown Unknown Verified 11/28/24 12:49 gatifloxacin Allergy Unknown Unknown Verified 11/28/24 12:49 metronidazole Allergy Unknown Unknown Verified 11/28/24 12:49 fluoxetine (From Prozac) AdvReac Mild Dizziness Verified 11/28/24 12:49 erythromycin base AdvReac Unknown Stomach Verified 11/28/24 12:49 cramps loratadine (From Claritin) AdvReac Unknown Jittery Verified 11/28/24 12:49 Review of Systems 2 Review of Systems: A 10 system review of systems was completed on the patient and is negative except for what is stated in the HPI. Nursing and ancillary documentation was reviewed. PMFSH Past Medical History Medical History Non-small cell carcinoma of lung Gastroesophageal reflux disease Nausea Aortic valve regurgitation Moderate by echocardiogram in October 2018. Followed by Dr. Velasco. Dementia Reported by daughter, however the patient disputes this. Bronchiectasis Prior imaging demonstrated bronchiectasis in bilateral lower lobes with chronic scarring. Hyperlipidemia Hypertension Benzodiazepine dependence Obstructive sleep apnea Paroxysmal atrial fibrillation She has declined anticoagulation and antiarrhythmics previously but is now on metoprolol daily. She is followed by Dr. Velasco. Chronic midline low back pain with sciatica Arthritis Depression Anxiety Diverticulitis Surgical History Surgical History History of tubal ligation History of hysterectomy History of cataract extraction History of tooth extraction History of cardiac catheterization No known intervention. History of cholecystectomy History of appendectomy Family History Family History Father Acute myocardial infarction Family history of alcoholism Gout Tobacco abuse Mother Family history of alcoholism Sibling Acute myocardial infarction Heart disease Sibling Brain aneurysm Daughter Bowel perforation July 2020 sounds like it may have been a bowel perforation related to hernia and possibly some diabetic problems.. Daughter Heart disease age 35 of heart attack Acute myocardial infarction Daughter COVID-19 Cyst of breast Social History Social History Social History: Surrogate medical decision maker: Toshia Bliss, daughter. Code status: Modified code, no intubation. Smoking status: Never smoker Second hand tobacco smoke exposure: Yes Alcohol intake: never Substance use: never Substance use type: does not use Do You Feel Safe in your Home?: Yes Lack of Transportation: No Lack of Food: Never True Current Housing: I Have Housing Concerned About Future Housing: No Difficulty Paying Gas/Electric Bills: No Difficulty Paying for Meds: No Currently Unemployed: No Education: High School Diploma/GED Difficulty w/ Childcare or Family Care: No Additional living arrangements comments: . Had 3 daughters, 1 who from an [facility] at age 30 and other who passed from complications of diabetes. 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 Spiritual care concerns: No Agree to blood products: Yes Exam 2 Narrative: GENERAL: Well-appearing, well-nourished, and in no acute distress. HEAD: Normocephalic, atraumatic. EYES: PERRLA and EOMI. ENT: Nares clear, no rhinorrhea or epistaxis. Mucous membranes moist. NECK: Supple. CHEST: Clear to auscultation. No respiratory distress. HEART: Regular rate and rhythm. No murmur heard. Normal peripheral pulses. ABDOMEN: Soft, nontender, nondistended, normal active bowel sounds. EXTREMITIES: Normal range of motion. No edema. SKIN: Warm, dry, no rash. NEURO: No focal deficits. Alert and oriented x3. PSYCH: Normal mood and affect. Course Vital Signs Vital signs: Vital Signs Temperature 36.6 C 12/11/24 12:02 Pulse Rate 84 12/11/24 12:02 Respiratory Rate 16 12/11/24 12:02 Blood Pressure 179/85 H 12/11/24 12:02 Pulse Oximetry 98 12/11/24 12:02 Temperature 36.6 C 12/11/24 15:17 Pulse Rate 86 12/11/24 15:17 Respiratory Rate 18 12/11/24 15:17 Blood Pressure 198/78 H 12/11/24 15:17 Pulse Oximetry 98 12/11/24 15:17 Medical Decision Making [facility] Narrative Medical decision making narrative: Differential diagnosis includes medication side effect, mandibular mass versus abscess Laboratory studies were obtained on the patient which were within normal limits creatinine was 1.27 the patient is normally 1.5 The patient be discharged home to follow-up the primary care provider Vital Signs Vital Signs: Vital Signs Temperature 36.6 C 12/11/24 12:02 Pulse Rate 84 12/11/24 12:02 Respiratory Rate 16 12/11/24 12:02 Blood Pressure 179/85 H 12/11/24 12:02 Pulse Oximetry 98 12/11/24 12:02 Temperature 36.6 C 12/11/24 15:17 Pulse Rate 86 12/11/24 15:17 Respiratory Rate 18 12/11/24 15:17 Blood Pressure 198/78 H 12/11/24 15:17 Pulse Oximetry 98 12/11/24 15:17 Lab Data 12/11/24 14:07 12/11/24 14:07 Labs: Lab Results 12/11/24 Range/Units 14:07 WBC 7.7 (4.5-10.0) K/mm3 RBC 4.68 (4.2-5.4) M/mm3 Hgb 12.6 (12.0-15.0) g/dL Hct 41.0 (37.0-47.0) % MCV 87.6 (80-100) fl MCH 26.9 (26-34) pg MCHC 30.7 L (32-36) g/dl RDW 14.8 H (11.5-14.5) % Plt Count 246 (150-375) k/mm3 MPV 10.4 (7.4-10.4) fl Immature Gran % (Auto) 0.4 (0-0.5) % Neut % (Auto) 69.9 (45.5-73.1) % Lymph % (Auto) 20.2 (18.3-44.2) % [place] % (Auto) 6.9 (2.6-8.5) % Eos % (Auto) 2.1 (0-4.4) % Baso % (Auto) 0.5 (0.2-1.2) % Lymph # (Auto) 1.55 (0.9-3.2) K/mm3 [place] # (Auto) 0.5 (0.1-0.6) K/mm3 Eos # (Auto) 0.2 (0-0.3) K/mm3 Baso # (Auto) 0.0 (0.0-0.1) K/mm3 Abs Immat Gran (auto) 0.03 (0.00-0.031) K/mm3 Absolute Neuts (auto) 5.4 (1.3-6.7) K/mm3 Absolute Nucleated RBC 0.000 (0.0-0.012) K/mm3 Nucleated RBC % 0.0 (0.0-0.2) % Sodium 143 (137-145) mmol/L Potassium 3.6 (3.4-5.0) mmol/L Chloride 103 (98-107) mmol/L Carbon Dioxide 29 (22-30) mmol/L Anion Gap 11 (4-12) mmol/L BUN 11 (7-17) mg/dL Creatinine 1.27 H (0.7-1.0) mg/dL Estim Creat Clear Calc Not Reportable Estimated GFR 40 L (59 - ) Glucose 108 (65-110) mg/dL Calcium 9.6 (8.4-10.2) mg/dL Magnesium 2.2 (1.6-2.3) mg/dL Total Bilirubin 0.5 (0.2-1.3) mg/dL AST 42 H (14-36) U/L ALT 32 (6-35) U/L Alkaline Phosphatase 96 (38-126) U/L Total Protein 8.0 (6.3-8.2) g/dL Albumin 4.5 (3.5-5.1) g/dL Discharge Plan Discharge Clinical Impression: Generalized weakness Patient Disposition: Home Condition: Stable Instructions: Antibiotic Form, Weakness (ED) Additional Instructions: Your scan did not show any abnormalities today. Your laboratory studies did not show any significant abnormalities your symptoms may be related to recently starting the new blood pressure medicine it is recommended he keep track of your blood pressure and discuss this with your primary care provider Patient Language: Mongolian Prescriptions: No Action amlodipine 2.5 mg tablet 2.5 mg PO DAILY Qty: 90 1RF amiodarone [Pacerone] 200 mg tablet 200 mg PO Q12H lovastatin 20 mg tablet 20 mg PO DAILY diclofenac sodium 1 % gel 1 ea topical DAILY Rx Instructions: apply to bilateral legs polyethylene glycol 3350 [Miralax] 17 gram Powder In Packet 17 g PO QAM Qty: 30 0RF acetaminophen [Tylenol Extra Strength] 500 mg tablet 1,000 mg PO TID PRN (Reason: pain) Qty: 30 0RF melatonin 3 mg Tablet 3 mg PO HS PRN (Reason: Insomnia) aspirin [Adult Aspirin Regimen] 81 mg tablet,delayed release (DR/EC) 81 mg PO DAILY Qty: 90 0RF albuterol sulfate 90 mcg/actuation HFA aerosol inhaler 2 inh INHALATION Q4H PRN (Reason: shortness of breath or wheezing) Qty: 6.7 11RF omeprazole 20 mg capsule,delayed release(DR/EC) 20 mg PO BID Qty: 60 3RF losartan 100 mg tablet 100 mg PO DAILY Qty: 90 1RF Rx Instructions: TAKE 1 TABLET BY MOUTH EVERY DAY IN THE MORNING tramadol 50 mg tablet 50 mg PO Q6H PRN (Reason: pain) Qty: 60 0RF alprazolam 0.5 mg tablet 0.5 mg PO TID PRN (Reason: anxiety) 30 Days Qty: 75 1RF furosemide 20 mg tablet 20 mg PO QAM Qty: 90 1RF Follow-up/Referrals: Ulises Guido MD [Primary Care Provider] - Time of Disposition: 15:53
[2024-12-11 16:16] VITALS: BP 194/86; PULSE 86; RESP 16; TEMP 36.6; O2SAT 100
== END 2024-12-11 16:19 | disposition home or self-care (01) ==
PROVIDERS: Emergency Provider Emergency Medicine; PCP Family Medicine
DX: R53.1 Weakness (principal); K21.9 Gastro-esophageal reflux disease without esophagitis; I35.1 Nonrheumatic aortic (valve) insufficiency; F03.90 Unspecified dementia, unspecified severity, without behavioral disturbance, psychotic disturbance, mood disturbance, and anxiety; E78.5 Hyperlipidemia, unspecified; I10 Essential (primary) hypertension; G47.30 Sleep apnea, unspecified; I48.91 Unspecified atrial fibrillation; M19.90 Unspecified osteoarthritis, unspecified site; F32.A Depression, unspecified; F41.9 Anxiety disorder, unspecified
CPT/HCPCS: 36415; 70487; 80053; 83735; 85025; 99284; Q9967

== ENCOUNTER 2025-01-25 12:27 | Emergency (ER) | payer MEDICARE, SELFPAY ==
--- NOTE | ~2025-01-25 | XR_ITS ---
XR hip RT 2V w AP pelvis Ordering provider: Eva Torres PA-C History: . fall . Comparison: None. FINDINGS: BONES: No acute fracture or dislocation. HIP JOINT SPACES: Severe bilateral hip osteoarthritic changes. SACROILIAC JOINT SPACES/LUMBAR SPINE: The sacroiliac joint spaces are normal. Mild degenerative boo es of the visualized lower lumbar spine. PUBIC SYMPHYSIS: Pubic symphysitis. SOFT TISSUES: Normal. IMPRESSION: No acute osseous abnormality pelvis and right hip. If still suspicious CT is advised. Bilateral hip severe osteoarthritic changes. Reviewed, dictated and finalized at location A. IMPRESSION: No acute osseous abnormality pelvis and right hip. If still suspicious CT is ad vised. Bilateral hip severe osteoarthritic changes.
--- NOTE | ~2025-01-25 | XR_ITS ---
XR knee LT min 4V Ordering provider: Eva Torres PA-C History: . fall . Comparison: None. FINDINGS: BONES: No acute fracture or dislocation. JOINT SPACES: Normal. Chondrocalcinosis seen in the medial and lateral menisci.. SOFT TISSUES: Normal. IMPRESSION: No acute osseous abnormality left knee. Chondrocalcinosis. Reviewed, dictated and finalized at location A.
--- NOTE | ~2025-01-25 | XR_ITS ---
XR chest 1V portable Ordering provider: Eva Torres PA-C History: 84 years Female with . weak . Comparison: October 03, 2024 FINDINGS: MEDIASTINUM: The cardiac silhouette is slightly enlarged. Congestive gildardo. LUNGS: Opacity in the right upper lobe is unchanged. No effusions or pneumothorax. Bilateral intersti tial opacification is seen which may indicate edema. Pneumonitis is not excluded. OTHER: No free air under the diaphragm. Degenerative changes of the spine. IMPRESSION: Slight cardiomegaly with congestive gildardo and interstitial thickening which may indicate cardiac decom pensation and minimal pulmonary edema. Clinical correlation and follow-up advised. Reviewed, dictated and finalized at location A. IMPRESSION: Slight cardiomegaly with congestive gildardo and interstitial thickening which may indicate cardiac decompensation and minimal pulmonary edema. Clinical correlati on and follow-up advised.
--- NOTE | ~2025-01-25 | XR_ITS ---
XR knee RT min 4V Ordering provider: Eva Torres PA-C History: . fall . Comparison: None. FINDINGS: BONES: No acute fracture or dislocation. JOINT SPACES: Normal. Chondrocalcinosis in the medial and lateral menisci. SOFT TISSUES: Normal. IMPRESSION: No acute osseous abnormality right knee. Chondrocalcinosis. Reviewed, dictated and finalized at location A.
--- NOTE | ~2025-01-25 | XR_ITS ---
XR humerus LT Ordering provider: Eva Torres PA-C History: . fall . Comparison: None. FINDINGS: BONES: No acute fracture or dislocation. JOINT SPACES: Normal. SOFT TISSUES: Normal. IMPRESSION: No acute osseous abnormality left humerus. Reviewed, dictated and finalized at location A.
--- OUTSIDE RECORDS SUMMARY | 2025-01-25 12:30 | XMS_ITS | Continuity of Care Document ---
Author Organization [facility] Address [address] [place] [address] Phone Care Team Providers Care Corn Cutter Name Role Phone Kalin Hammonds DO Unavailable Unavailable Advance Directives Directive Yes / No Effective Date File Name No Information Encounters Encounter Description Practice Location Reason(s) For Visit Diagnoses Date Provider Providers Copied on Encounter [facility], [address], [place], [place], [id number], [place] tel:[phone] [facility] No Information Cassius Johnson. [address] [facility], [place], [address], [place]. tel: [phone] Family History Family Member Type Diagnosis Age [...]
--- OUTSIDE RECORDS SUMMARY | 2025-01-25 12:30 | XMS_ITS | Referral Summary ---
Author Organization [facility] [address] [place] [address] 162 Address [address] [place] [address] Care Team Providers Care Director Call Name Role Phone Ulises Guido MD Primary Care Provider [phone] Encounters Date Type Department Care Team Description 12/06/2024 Telephone [facility] Medical [facility] Cardiology [address] [facility] [address] [place] [address] Freddie Velasco MD 11/21/2024 Telephone [facility] Cardiology [address] [place] [address] Freddie Velasco MD from Last [...] by mouth daily 30 tablet 11 4 Active Additional Information Patient not taking.Reported on [...] on file Legal Sex Female 3:40 AM APARTMENT MAINTENANCE Gender Identity Not on file Sexual Orientation Not on file Last Filed Vital Signs Vital Sign Reading Time Taken Comments Blood Pressure 180/78 09/10/2024 10:49 AM APARTMENT MAINTENANCE Pulse 92 09/10/2024 10:49 AM APARTMENT MAINTENANCE Temperature - - Respiratory Rate - - Oxygen Saturation 99% 09/10/2024 10:49 AM APARTMENT MAINTENANCE Inhaled Oxygen Concentration - - Weight 69 kg (152 lb 1.6 oz) 09/10/2024 10:49 AM APARTMENT MAINTENANCE Height 152.4 cm (5') 09/10/2024 10:49 AM APARTMENT MAINTENANCE Body Mass Index 29.7 09/10/2024 10:49 AM APARTMENT MAINTENANCE Plan of Treatment Not on file Insurance [id number] [place] [address] [employer] Care Teams Director Call Relationship Specialty Start Date End Date Ulises Guido MD PCP - General Family Medicine 05/19/20
--- OUTSIDE RECORDS SUMMARY | 2025-01-25 12:30 | XMS_ITS | Clinical Summary ---
Author Organization [facility] [address] Address [address] [place] [address] Care Team Providers Care Primary Teaching Assistant Name Role Phone Ulises Guido MD Primary Care Provider [phone] Allergies Active Allergy Reactions Criticality Noted Date [...] Type Department Care Team Description 12/06/2024 Telephone [facility] Medical [facility] Cardiology [address] [facility] [address] [place] [address] Freddie Velasco MD 11/21/2024 Telephone [facility] Cardiology [address] [place] [phone] Freddie Velasco MD from Last 3 Months [...] on file Legal Sex Female 3:40 AM TUBE SPLICER Gender Identity Not on file Sexual Orientation Not on file Obstetrics History Last Filed Vital Signs Vital Sign Reading Time Taken Comments Blood Pressure 180/78 09/10/2024 10:49 AM TUBE SPLICER Pulse 92 09/10/2024 10:49 AM TUBE SPLICER Temperature - - Respiratory Rate - - Oxygen Saturation 99% 09/10/2024 10:49 AM TUBE SPLICER Inhaled Oxygen Concentration - - Weight 69 kg (152 lb 1.6 oz) 09/10/2024 10:49 AM TUBE SPLICER Height 152.4 cm (5') 09/10/2024 10:49 AM TUBE SPLICER Body Mass Index 29.7 09/10/2024 10:49 AM TUBE SPLICER Plan of Treatment Health Maintenance Due Date Last Done Comments Depression Screening 1938 Fall Risk Assessment 1938 Hepatitis B Screening 02/03/1956 Pneumococcal vaccine 65+ (1 of 1 - PCV) 02/03/1988 Zoster Vaccine (1 of 2) 02/03/1988 Well Visit 65+ 2003 DTaP/Tdap/Td Vaccine (1 - Tdap) 09/07/2016 7, 09/27/2005 Influenza Vaccine (Season Ended) 2025 06/11/2019, 06/23/2018, 06/10/2017, Additional history exists Insurance [facility] [employer] [address] Care Teams Primary Teaching Assistant Relationship Specialty Start Date End Date Ulises Guido MD PCP - General Family Medicine 05/19/20
--- OUTSIDE RECORDS SUMMARY | 2025-01-25 12:30 | XMS_ITS | Clinical Summary ---
Author Organization [facility] Peter marie [facility] Address [address] [place] [address] Care Team Providers Care Pc Support Specialist Name Role Phone Ulises Guido MD Primary Care Provider [phone] Allergies Active Allergy Reactions Criticality Noted Date [...] Take 81 mg by mouth daily. Active Active Problems Problem Noted Date Diagnosed Date Non-small cell cancer of right lung 09/09/2021 Encounters Date Type Department Care Team Description 01/21/2025 External Device Data [facility] ABSTRACTION Provider, Abstract 01/15/2025 External Device Data [facility] ABSTRACTION Provider, Abstract 01/14/2025 External Device Data [facility] ABSTRACTION Provider, Abstract 11/13/2024 External Device Data [facility] ABSTRACTION Provider, Abstract 11/12/2024 11:30 AM CDT Office Visit [facility] Oncology and Hematology [facility] [address] [place] [address] Bassem Benitez MD Non-small cell lung cancer, unspecified laterality (CMS/HCC) (Primary Dx) 11/06/2024 Orders Only [facility] Oncology and [facility] [address] [place] [address] Bassem Benitez MD 11/02/2024 External Device Data [...] on file Legal Sex Female 11:17 AM TELEPHONE SERVICE REPRESENTATIVE Gender Identity Not on file Sexual Orientation [...] 11:42 AM CDT Height 149.9 cm (4' 11) 04/19/2022 11:34 AM CDT Body Mass Index 30.18 04/19/2022 11:34 AM CDT Plan of Treatment Upcoming Encounters Date Type Department Care Team (Late st Contact Info) Description 05/22/2025 11:00 AM CDT Office Visit [facility] Oncology and Hematology - Tab [address] [facility] [address] [place] [address] Bassem Benitez MD [address] [facility] [address] [place] [address] Health Maintenance Due Date Last Done Comments DTAP/TDAP/TD VACCINES (1 - Tdap) 1959 PNEUMOCOCCAL VACCINE 50+ YEARS (1 of 1 - PCV) 02/02/19 88 ZOSTER VACCINE (1 of 2) 02/03/1988 OSTEOPOROSIS SCREENING 2003 RSV VACCINE (60+ or ) (1 - 1-dose 75+ series) 2013 INFLUENZA VACCINE (#1) 2024 Procedures Procedure Name Priority Date/Time Associated Diagnosis Comments CT CHEST W CONTRAST Routine 11/05/2024 8:58 AM CDT from Last 3 Months Results * CT CHEST W CONTRAST (11/05/2024 8:58 AM CDT) Anatomical Region Laterality Modality Chest Computed Tomogra phy us Bassem Benitez MD CT ORDERABLES Final Result from Last 3 Months [facility] Care Teams Pc Support Specialist Relationship Specialty Start Date End Date Ulises Guido MD [address] [place] [address] PCP - General Family Practice 08/19/21
[2025-01-25 12:36] VITALS: BP 136/67; PULSE 75; RESP 20; TEMP 36.8; O2SAT 99
[2025-01-25 14:32] VITALS: BP 211/66; PULSE 76; RESP 17; O2SAT 100
--- OUTSIDE RECORDS SUMMARY | 2025-01-25 14:33 | XMS_ITS | Clinical Summary ---
Author Organization [facility] [address] Address [address] [place] [address] Care Team Providers Care Clinical Data Assistant Name Role Phone Ulises Guido MD Primary Care Provider [phone] Allergies Active Allergy Reactions Criticality Noted Date [...] Type Department Care Team Description 12/06/2024 Telephone [facility] Medical [facility] Cardiology [address] [facility] [address] [place] [phone] Freddie Velasco MD 11/21/2024 Telephone [facility] Cardiology [address] [place] [phone] Freddie Velasco MD from Last 3 Months [...] on file Legal Sex Female 3:40 AM COMMUNITY REPRESENTATIVE Gender Identity Not on file Sexual Orientation Not on file Obstetrics History Last Filed Vital Signs Vital Sign Reading Time Taken Comments Blood Pressure 180/78 09/10/2024 10:49 AM COMMUNITY REPRESENTATIVE Pulse 92 09/10/2024 10:49 AM COMMUNITY REPRESENTATIVE Temperature - - Respiratory Rate - - Oxygen Saturation 99% 09/10/2024 10:49 AM COMMUNITY REPRESENTATIVE Inhaled Oxygen Concentration - - Weight 69 kg (152 lb 1.6 oz) 09/10/2024 10:49 AM COMMUNITY REPRESENTATIVE Height 152.4 cm (5') 09/10/2024 10:49 AM COMMUNITY REPRESENTATIVE Body Mass Index 29.7 09/10/2024 10:49 AM COMMUNITY REPRESENTATIVE Plan of Treatment Health Maintenance Due Date Last Done Comments Depression Screening 1940 Fall Risk Assessment 1940 Hepatitis B Screening 02/03/1956 Pneumococcal vaccine 65+ (1 of 1 - PCV) 02/03/1988 Zoster Vaccine (1 of 2) 02/03/1988 Well Visit 65+ 2003 DTaP/Tdap/Td Vaccine (1 - Tdap) 09/07/2016 7, 09/27/2005 Influenza Vaccine (Season Ended) 2025 06/11/2019, 06/23/2018, 06/10/2017, Additional history exists Insurance [facility] [employer] Care Teams Clinical Data Assistant Relationship Specialty Start Date End Date Ulises Guido MD PCP - General Family Medicine 05/19/20
--- OUTSIDE RECORDS SUMMARY | 2025-01-25 14:33 | XMS_ITS | Referral Summary ---
Author Organization [facility] [address] [place] [address] [address] [place] [address] Care Team Providers Care Muff Winder Name Role Phone Ulises Guido MD Primary Care Provider [phone] Encounters Date Type Department Care Team Description 12/06/2024 Telephone [facility] Medical [facility] Cardiology [address] [facility] [address] [place] [address] Freddie Velasco MD 11/21/2024 Telephone [facility] Cardiology [address] [place] [address] Freddie Velasco MD from Last [...] on file Legal Sex Female 3:40 AM SORORITY MOTHER Gender Identity Not on file Sexual Orientation Not on file Last Filed Vital Signs Vital Sign Reading Time Taken Comments Blood Pressure 180/78 09/10/2024 10:49 AM SORORITY MOTHER Pulse 92 09/10/2024 10:49 AM SORORITY MOTHER Temperature - - Respiratory Rate - - Oxygen Saturation 99% 09/10/2024 10:49 AM SORORITY MOTHER Inhaled Oxygen Concentration - - Weight 69 kg (152 lb 1.6 oz) 09/10/2024 10:49 AM SORORITY MOTHER Height 152.4 cm (5') 09/10/2024 10:49 AM SORORITY MOTHER Body Mass Index 29.7 09/10/2024 10:49 AM SORORITY MOTHER Plan of Treatment Not on file Insurance [id number] [place] [address] [employer] Care Teams Muff Winder Relationship Specialty Start Date End Date Ulises Guido MD PCP - General Family Medicine 05/19/20
--- OUTSIDE RECORDS SUMMARY | 2025-01-25 14:33 | XMS_ITS | Continuity of Care Document ---
Author Organization [facility] Address [address] [place] [address] Phone Care Team Providers Care Intranet Specialist Name Role Phone Kalin Hammonds DO Unavailable Unavailable Advance Directives Directive Yes / No Effective Date File Name No Information Encounters Encounter Description Practice Location Reason(s) For Visit Diagnoses Date Provider Providers Copied on Encounter [facility], [address], [place], [place], [id number], [place] tel:[phone] [address] [facility] No Information Cassius Johnson. [address] [facility], [place], [address], [place]. tel: [phone] Family History Family Member Type Diagnosis Age [...]
--- OUTSIDE RECORDS SUMMARY | 2025-01-25 14:33 | XMS_ITS | Clinical Summary ---
Author Organization [facility] Peter marie [facility] Address [address] [place] [address] Care Team Providers Care Hot Metal Mixer Operator Name Role Phone Ulises Guido MD Primary Care Provider [phone] Allergies Active Allergy Reactions Criticality Noted Date [...] Abstract 11/12/2024 11:30 AM CDT Office Visit [facility] Oncology and Hematology [facility] [address] [place] [address] Bassem Benitez MD Non-small cell lung cancer, unspecified laterality (CMS/HCC) (Primary Dx) 11/06/2024 Orders Only [facility] On[facility] and [facility] [address] [place] [address] Bassem Benitez MD 11/02/2024 External Device Data [...] on file Legal Sex Female 11:17 AM LIVESTOCK FEEDER Gender Identity Not on file Sexual [...] Description 05/22/2025 11:00 AM CDT Office Visit [facility] Oncology and Hematology - Tab [address] [facility] [address] [place] [address] Bassem Benitez MD [address] [facility] [address] [place] [address] Health Maintenance Due Date Last [...] Final Result from Last 3 Months Insurance [facility] Care Teams Hot Metal Mixer Operator Relationship Specialty Start Date End Date Ulises Guido MD [address] [place] [address] PCP - General Family Practice 08/19/21
--- NOTE | 2025-01-25 14:36 | ECG_ITS ---
Test Date: 2025-01-25 15:28:14 Measurements Intervals [place] Rate: 68 P: -65 CO: 198 QRS: -24 QRSD: 95 T: 39 QT: 448 QTc: 479 Interpretive Statements SINUS RHYTHM WITH FIRST DEGREE AV BLOCK LEFT VENTRICULAR HYPERTROPHY AND ST-T CHANGE BASELINE ARTIFACT- I, II, III, AVR, AVL, AVF, V4 BORDERLINE ECG Compared to ECG 06/03/2024 08:26:30 HEART RATE HAS INCREASED Electronically Signed On 01-26-2025 07:07:48 CDT by Seamus Cowan D.O.
--- NOTE | 2025-01-25 14:39 | ED.FALL ---
HPI - Fall General Chief Complaint: Fall Stated Complaint: Fall-pain to both legs-left arm Time Seen by Provider: 01/25/25 14:20 History of Present Illness HPI Narrative: 84-year-old female with history of CKD, AFib, hypertension, GERD presents to the emergency department for bilateral knee pain, right hip and left humerus pain after a fall that occurred 4 days ago. Patient states she was walking in her front yard when her legs gave out from under her and caused her to fall. She states she landed on her right hip. She has had pain to her right hip, bilateral knees and left humerus since with bruising her left humerus. She states she has not had a right to the ED until today which is why she is presenting today. She states since the fall she has felt weak and nauseous due to the pain. She has been taking Tums and Pepto-Bismol for her symptoms, has not taken anything for pain. She denies hitting her head or losing consciousness. Denies chest pain, shortness of breath, vision changes, abdominal pain, vomiting or diarrhea, cough or congestion, fever, dysuria or hematuria. No other complaints. Patient states she ambulates with a walker when she leaves her house but did not have her walker with her during the time of the fall. Related Data Home Medications ?Medication ?Instructions ?Recorded ?Confirmed ?Last Taken ?Type melatonin 3 mg tablet 3 mg PO HS PRN Insomnia 10/31/21 12/18/24 12/05/23 History diclofenac sodium 1 % topical gel 1 ea topical DAILY 06/02/24 12/18/24 Unknown History amiodarone 200 mg tablet (Pacerone) 200 mg PO Q12H 10/25/24 12/18/24 Unknown History Allergies Allergy/AdvReac Type Severity Reaction Status Date / Time Penicillins Allergy Severe Hives Verified 01/25/25 12:28 gabapentin Allergy Intermediate Chest Pain Verified 01/25/25 12:28 nitrofurantoin (From Allergy Intermediate Hives Verified 01/25/25 12:28 Macrobid) Quinolones Allergy Mild Unknown Verified 01/25/25 12:28 cefprozil Allergy Unknown Unknown Verified 01/25/25 12:28 cefuroxime Allergy Unknown Unknown Verified 01/25/25 12:28 Cephalosporins Allergy Unknown Unknown Verified 01/25/25 12:28 gatifloxacin Allergy Unknown Unknown Verified 01/25/25 12:28 metronidazole Allergy Unknown Unknown Verified 01/25/25 12:28 fluoxetine (From Prozac) AdvReac Mild Dizziness Verified 01/25/25 12:28 erythromycin base AdvReac Unknown Stomach Verified 01/25/25 12:28 cramps loratadine (From Claritin) AdvReac Unknown Jittery Verified 01/25/25 12:28 Review of Systems Review of Systems: All systems reviewed & are unremarkable except as noted in HPI and below PMFSH Past Medical History Medical History Non-small cell carcinoma of lung Gastroesophageal reflux disease Nausea Aortic valve regurgitation Moderate by echocardiogram in October 2018. Followed by Dr. Velasco. Dementia Reported by daughter, however the patient disputes this. Bronchiectasis Prior imaging demonstrated bronchiectasis in bilateral lower lobes with chronic scarring. Hyperlipidemia Hypertension Benzodiazepine dependence Obstructive sleep apnea Paroxysmal atrial fibrillation She has declined anticoagulation and antiarrhythmics previously but is now on metoprolol daily. She is followed by Dr. Velasco. Chronic midline low back pain with sciatica Arthritis Depression Anxiety Diverticulitis Surgical History Surgical History History of tubal ligation History of hysterectomy History of cataract extraction History of tooth extraction History of cardiac catheterization No known intervention. History of cholecystectomy History of appendectomy Family History Family History Father Acute myocardial infarction Family history of alcoholism Gout Tobacco abuse Mother Family history of alcoholism Sibling Acute myocardial infarction Heart disease Sibling Brain aneurysm Daughter Bowel perforation July 2020 sounds like it may have been a bowel perforation related to hernia and possibly some diabetic problems.. Daughter Heart disease age 35 of heart attack Acute myocardial infarction Daughter COVID-19 Cyst of breast Social History Social History Social History: Surrogate medical decision maker: Toshia Bliss, daughter. Code status: Modified code, no intubation. Smoking status: Never smoker Second hand tobacco smoke exposure: Yes Alcohol intake: never Substance use: never Substance use type: does not use Do You Feel Safe in your Home?: Yes Lack of Transportation: No Lack of Food: Never True Current Housing: I Have Housing Concerned About Future Housing: No Difficulty Paying Gas/Electric Bills: No Difficulty Paying for Meds: No Currently Unemployed: No Education: High School Diploma/GED Difficulty w/ Childcare or Family Care: No Additional living arrangements comments: . Had 3 daughters, 1 who from an GA at age 30 and other who passed from complications of diabetes. 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 Spiritual care concerns: No Agree to blood products: Yes Exam Narrative: GENERAL: Well-appearing, well-nourished, and in no acute distress. HEAD: Normocephalic, atraumatic. EYES: EOMI. ENT: Nares clear, no rhinorrhea or epistaxis. Mucous membranes moist. NECK: No midline cervical spinous tenderness crepitus, step-offs or deformities BACK: No midline thoracolumbar spinous tenderness, crepitus, step-offs or deformities CHEST: Clear to auscultation. No respiratory distress. HEART: Regular rate and rhythm. No murmur heard. Normal peripheral pulses. ABDOMEN: Soft, nontender, nondistended, normal active bowel sounds. EXTREMITIES: LUE: Approximately 2-3 cm of yellow ecchymosis to the mid proximal left humerus with minimal tenderness, no obvious deformity. No tenderness to shoulder elbow no tenderness remainder of extremity. Full active and passive range of motion of extremity. Radial pulse 2 +. Sensation intact. Axillary, radial, median and ulnar nerves are intact. BLE: Minimal tenderness to the lateral aspect of the right hip with no overlying ecchymosis or deformity. No tenderness. Diffuse tenderness to bilateral knees with no deformity, ecchymosis, effusion. Full active and passive range of motion of both lower extremities. No knee laxity with varus or valgus stress, negative anterior posterior drawer bilaterally. Mild pitting edema bilaterally. DP pulses 2+. Sensation intact. No erythema or warmth. SKIN: Warm, dry, no rash. NEURO: No focal deficits. Alert and oriented x3 Course Vital Signs Vital signs: Vital Signs Temperature 98.2 F 01/25/25 12:36 Pulse Rate 75 01/25/25 12:36 Respiratory Rate 20 01/25/25 12:36 Blood Pressure 136/67 01/25/25 12:36 Pulse Oximetry 99 01/25/25 12:36 Oxygen Delivery Room Air 01/25/25 12:36 Temperature 98 F 01/25/25 17:43 Pulse Rate 66 01/25/25 17:43 Respiratory Rate 17 01/25/25 17:43 Blood Pressure 168/71 H 01/25/25 17:43 Pulse Oximetry 98 01/25/25 17:43 Oxygen Delivery Room Air 01/25/25 12:36 MDM - Fall MDM Narrative Medical decision making narrative: 84-year-old female presents to emergency department for left humerus pain, right hip pain bilaterally pain after a fall that occurred 4 days ago. Patient states her legs ?gave out from under her?. She is reportedly supposed to use a walker when she leaves her house, however did not have her walker with her at the time of fall. She did not hit her head or lose consciousness. States she has been feeling weak and nauseous since the fall which she is attributing to her pain. On arrival triage vitals are stable with a blood pressure 136/67, however upon my evaluation patient's blood pressure did increase to 211/66. She does have a history of hypertension and is on several antihypertensives which she reportedly took this morning, she is supposed to take amlodipine 2.5 mg this evening. She denies signs or symptoms of hypertensive emergency. Will treat her pain and recheck blood pressure. Given reported weakness, will obtain lab work, EKG, chest x-ray in addition to x-rays of extremity injuries. CBC without leukocytosis or anemia. Chemistries with creatinine of 1.08 which is actually improved from baseline. AST mildly elevated at 53, most recently on 12/11/2024 was 42. ALT also mildly elevated at 38. CK is within normal limits. UA with trace leuk esterase, otherwise unremarkable. Patient has no symptoms of UTI. Chest x-ray shows slight cardiomegaly with congestive gildardo with full pulmonary edema BNP is normal when age adjusted. X-ray of the left humerus, right hip and bilateral knee show no acute osseous findings. X-ray of the knees do show is concerning for chondrocalcinosis. Patient updated on results. She received Tylenol and Zofran with improvement. States she feels much better. Blood pressure did improve 168/63 without some antihypertensives. She is ambulatory at her baseline. Given chest x-ray findings she was given an additional dose of her home Lasix. Feel she is safe to be discharged home. Advised to continue her antihypertensives and Lasix as prescribed and follow-up with her PCP. Will provide a script for Tylenol for chondrocalcinosis findings. Advised her to ambulate with a walker at all times. Discussed strict ED return precautions. She is agreeable with the plan verbalized understanding. Discharged in stable condition. Lab Data 01/25/25 15:23 01/25/25 15:23 Labs: Lab Results 01/25/25 Range/Units 15:23 WBC 8.2 (4.5-10.0) K/mm3 RBC 4.52 (4.2-5.4) M/mm3 Hgb 12.0 (12.0-15.0) g/dL Hct 39.0 (37.0-47.0) % MCV 86.3 (80-100) fl MCH 26.5 (26-34) pg MCHC 30.8 L (32-36) g/dl RDW 15.7 H (11.5-14.5) % Plt Count 247 (150-375) k/mm3 MPV 10.1 (7.4-10.4) fl Immature Gran % (Auto) 0.5 (0-0.5) % Neut % (Auto) 72.0 (45.5-73.1) % Lymph % (Auto) 17.6 L (18.3-44.2) % [place] % (Auto) 7.7 (2.6-8.5) % Eos % (Auto) 1.6 (0-4.4) % Baso % (Auto) 0.6 (0.2-1.2) % Lymph # (Auto) 1.44 (0.9-3.2) K/mm3 [place] # (Auto) 0.6 (0.1-0.6) K/mm3 Eos # (Auto) 0.1 (0-0.3) K/mm3 Baso # (Auto) 0.1 (0.0-0.1) K/mm3 Abs Immat Gran (auto) 0.04 H (0.00-0.031) K/mm3 Absolute Neuts (auto) 5.9 (1.3-6.7) K/mm3 Absolute Nucleated RBC 0.000 (0.0-0.012) K/mm3 Nucleated RBC % 0.0 (0.0-0.2) % Sodium 138 (137-145) mmol/L Potassium 3.8 (3.4-5.0) mmol/L Chloride 102 (98-107) mmol/L Carbon Dioxide 28 (22-30) mmol/L Anion Gap 8 (4-12) mmol/L BUN 11 (7-17) mg/dL Creatinine 1.08 H (0.7-1.0) mg/dL Estim Creat Clear Calc Not Reportable Estimated GFR 48 L (59 - ) Glucose 108 (65-110) mg/dL Calcium 9.3 (8.4-10.2) mg/dL Total Bilirubin 0.8 (0.2-1.3) mg/dL AST 53 H (14-36) U/L ALT 38 H (6-35) U/L Alkaline Phosphatase 85 (38-126) U/L Total Creatine Kinase 71 (30-135) U/L NT-Pro-B Natriuret Pep 344 H (19.9-100) pg/mL Total Protein 8.0 (6.3-8.2) g/dL Albumin 4.2 (3.5-5.1) g/dL Urine Color Yellow (Yellow) Urine Appearance Clear (Clear) Urine pH 6.5 (5.0-9.0) Ur Specific [place] 1.008 (1.001-1.035) Urine Protein Negative (Negative) mg/dL Urine Glucose (UA) Negative (Negative) mg/dL Urine Ketones Negative (Negative) mg/dL Ur Blood (Man) Negative (Negative) Urine Nitrate Negative (Negative) Urine Bilirubin Negative (Negative) Urine Urobilinogen 0.2 (<2.0) mg/dL Leukocyte Esterase Rfl Trace H (Negative) [place]/UL Urine RBC 0-2 (0-2) /hpf Urine WBC 0-5 (0-3) /hpf Ur Squamous Epith Cells None seen (Few) /hpf Urine Bacteria None seen /hpf Urine Casts 0-2 Discharge Plan Discharge Clinical Impression: Acute knee pain, Pulmonary edema, Arm contusion Patient Disposition: Home Condition: Stable Instructions: Antibiotic Form, Contusion in Adults (ED), Knee Pain (ED) Additional Instructions: You were evaluated in the emergency department for knee pain and arm contusion after a fall along with weakness. Your workup here is reassuring and shows no broken bones. Your found have a small amount of fluid on her lungs or given an extra dose of your Lasix. Please continue taking your medications as prescribed. Take your blood pressure daily as discussed and keep a log, follow-up with her primary care provider. Return to the emergency department if you develop chest pain, shortness of breath or other concerning symptoms. Take 500 to a 1000 mg of Tylenol every 6 hours as needed for pain, do not take more than 4000 mg of Tylenol in 24 hour period. Patient Language: Nepalese Prescriptions: No Action amlodipine 2.5 mg tablet 2.5 mg PO DAILY Qty: 90 1RF benzonatate 100 mg capsule 100 mg PO TID PRN (Reason: cough) Qty: 30 0RF amiodarone [Pacerone] 200 mg tablet 200 mg PO Q12H diclofenac sodium 1 % gel 1 ea topical DAILY Rx Instructions: apply to bilateral legs polyethylene glycol 3350 [Miralax] 17 gram Powder In Packet 17 g PO QAM Qty: 30 0RF acetaminophen [Tylenol Extra Strength] 500 mg tablet 1,000 mg PO TID PRN (Reason: pain) Qty: 30 0RF melatonin 3 mg Tablet 3 mg PO HS PRN (Reason: Insomnia) tramadol 50 mg tablet 50 mg PO Q8H PRN (Reason: pain) Qty: 12 0RF aspirin [Adult Aspirin Regimen] 81 mg tablet,delayed release (DR/EC) 81 mg PO DAILY Qty: 90 0RF albuterol sulfate 90 mcg/actuation HFA aerosol inhaler 2 inh INHALATION Q4H PRN (Reason: shortness of breath or wheezing) Qty: 6.7 11RF omeprazole 20 mg capsule,delayed release(DR/EC) 20 mg PO BID Qty: 60 3RF furosemide 20 mg tablet 20 mg PO QAM Qty: 90 1RF levofloxacin 500 mg tablet 500 mg PO DAILY Qty: 7 0RF tramadol 50 mg tablet 50 mg PO Q6H PRN (Reason: pain) Qty: 60 0RF losartan 100 mg tablet 100 mg PO DAILY Qty: 90 1RF Rx Instructions: TAKE 1 TABLET BY MOUTH EVERY DAY IN THE MORNING lovastatin 20 mg tablet See Rx Instructions .ROUTE .COMPLEX Qty: 90 2RF Dose Instruction: TAKE 1 TABLET BY MOUTH EVERY DAY Rx Instructions: TAKE 1 TABLET BY MOUTH EVERY DAY alprazolam 0.5 mg tablet 0.5 mg PO TID PRN (Reason: anxiety) 30 Days Qty: 75 1RF Follow-up/Referrals: Ulises Guido MD [Primary Care Provider] -
[2025-01-25 15:32] LABS: Basophils Absolute Auto 0.1 K/mm3 (0.0-0.1); Basophils Percent Auto 0.6 % (0.2-1.2); Eosinophils Absolute Auto 0.1 K/mm3 (0-0.3); Eosinophils Percent Auto 1.6 % (0-4.4); Immature Granulocyte Absolute 0.04 K/mm3 (0.00-0.031); Immature Granulocyte Percent A 0.5 % (0-0.5); Lymphocytes Absolute Auto 1.44 K/mm3 (0.9-3.2); Lymphocytes Percent Auto 17.6 % (18.3-44.2); Mean Corpuscular HGB Conc 30.8 g/dl (32-36); Mean Corpuscular Hemoglobin 26.5 pg (26-34); Mean Corpuscular Volume 86.3 fl (80-100); Mean Platelet Volume 10.1 fl (7.4-10.4); Monocytes Absolute Auto 0.6 K/mm3 (0.1-0.6); Monocytes Percent Auto 7.7 % (2.6-8.5); Neutrophils Absolute Auto 5.9 K/mm3 (1.3-6.7); Platelet Count Result 247 k/mm3 (150-375); Red Blood Count 4.52 M/mm3 (4.2-5.4); Red Cell Distribution Width 15.7 % (11.5-14.5); White Blood Count 8.2 K/mm3 (4.5-10.0)
[2025-01-25 15:36] LABS: Add Urine Microscopic? YES; Appearance Urine Clear (Clear); Bacteria Urine None Seen /hpf; Bilirubin Urine Negative (Negative); Blood Urine Negative (Negative); Color Urine Yellow (Yellow); Glucose Urine UA Negative (Negative); Ketones Urine Negative (Negative); Leukocyte Esterase Ur Trace LEU/UL (Negative); Nitrate Urine Negative (Negative); Non Pathogenic Casts 0-2; Protein Urine Negative (Negative); RBC Urine 0-2 /hpf (0-2); Specific Grav Ur 1.008 (1.001-1.035); Squamous Epithelial Cell Urine None Seen /hpf (Few); Urobilinogen Urine 0.2 mg/dL (<2.0); WBC Urine 0-5 /hpf (0-3); pH Urine 6.5 (5.0-9.0)
[2025-01-25] MEDS: ONDANSETRON HCL ODT 4 MG TABLET PO (15:36)
[2025-01-25] MEDS: ACETAMINOPHEN 500 MG TABLET 1000 MG PO (15:36)
[2025-01-25 15:37] VITALS: BP 172/69; PULSE 69; RESP 16; O2SAT 100
[2025-01-25 15:42] LABS: Alanine Aminotransferase 38 U/L (6-35); Albumin Level 4.2 g/dL (3.5-5.1); Alkaline Phosphatase 85 U/L (38-126); Anion Gap 8 mmol/L (4-12); Aspartate Amino Transferase 53 U/L (14-36); Bilirubin,Total 0.8 mg/dL (0.2-1.3); Blood Urea Nitrogen 11 mg/dL (7-17); Calcium 9.3 mg/dL (8.4-10.2); Carbon Dioxide 28 mmol/L (22-30); Chloride 102 mmol/L (98-107); Estimated Glomerular Filt Rate 48; Glucose 108 mg/dL (65-110); Potassium 3.8 mmol/L (3.4-5.0); Sodium 138 mmol/L (137-145)
[2025-01-25 15:55] LABS: Creatine Kinase 71 U/L (30-135)
[2025-01-25 16:25] VITALS: BP 168/63; PULSE 67; RESP 17; O2SAT 96
[2025-01-25 16:28] LABS: NT Pro B Type Natriuretic Pept 344 pg/mL (19.9-100)
[2025-01-25 17:18] VITALS: BP 192/72; PULSE 68; RESP 15; O2SAT 99
[2025-01-25] MEDS: FUROSEMIDE 20 MG TABLET PO (17:18)
[2025-01-25 17:43] VITALS: BP 168/71; PULSE 66; RESP 17; TEMP 36.6; O2SAT 98
== END 2025-01-25 17:46 | disposition home or self-care (01) ==
PROVIDERS: Emergency Provider Physician Assistant; PCP Family Medicine
DX: M25.562 Pain in left knee (principal); M25.551 Pain in right hip; S40.022A Contusion of left upper arm, initial encounter; W18.39XA Other fall on same level, initial encounter; J81.1 Chronic pulmonary edema
CPT/HCPCS: 36415; 71045; 73060; 73502; 73564; 80053; 81001; 82550; 83880; 85025; 93005; 99284; A9270

== ENCOUNTER 2025-01-27 12:01 | Emergency (ER) | payer MEDICARE, SELFPAY ==
[2025-01-27 12:04] VITALS: BP 164/60; PULSE 80; RESP 17; TEMP 37.2; O2SAT 98
--- OUTSIDE RECORDS SUMMARY | 2025-01-27 12:09 | XMS_ITS | Clinical Summary ---
Author Organization [facility] [place] [address] Address [address] [place] [address] Care Team Providers Care Design Maintenance Engineer Name Role Phone Ulises Guido MD Primary Care Provider [phone] Allergies Active Allergy Reactions Criticality Noted Date [...] Type Department Care Team Description 12/06/2024 Telephone [facility] Medical [facility] Cardiology [address] [facility] [address] [place] [phone] Freddie Velasco MD 11/21/2024 Telephone [facility] Cardiology [address] [place] [address] Freddie Velasco MD from Last 3 Months [...] on file 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 Gender Identity Not on file Sexual Orientation Not on file Obstetrics History Last Filed Vital Signs Vital Sign Reading Time Taken Comments Blood Pressure 180/78 09/10/2024 10:49 AM CABLE PLACER Pulse 92 09/10/2024 10:49 AM CABLE PLACER Temperature - - Respiratory Rate - - Oxygen Saturation 99% 09/10/2024 10:49 AM CABLE PLACER Inhaled Oxygen Concentration - - Weight 69 kg (152 lb 1.6 oz) 09/10/2024 10:49 AM CABLE PLACER Height 152.4 cm (5') 09/10/2024 10:49 AM CABLE PLACER Body Mass Index 29.7 09/10/2024 10:49 AM CABLE PLACER Plan of Treatment Health Maintenance Due Date Last Done Comments Depression Screening 1940 Fall Risk Assessment 1938 Hepatitis B Screening 02/03/1956 Pneumococcal vaccine 65+ (1 of 1 - PCV) 02/03/1988 Zoster Vaccine (1 of 2) 02/03/1988 Well Visit 65+ 2003 DTaP/Tdap/Td Vaccine (1 - Tdap) 09/07/2016 7, 09/27/2005 Influenza Vaccine (Season Ended) 2025 06/11/2019, 06/23/2018, 06/10/2017, Additional history exists Insurance [facility] [employer] Care Teams Design Maintenance Engineer Relationship Specialty Start Date End Date Ulises Guido MD PCP - General Family Medicine 05/19/20
--- OUTSIDE RECORDS SUMMARY | 2025-01-27 12:09 | XMS_ITS | Referral Summary ---
Author Organization [facility] [place] [address] [place] [address] [address] [place] [address] Care Team Providers Care Assistant Teaching Professor Name Role Phone Ulises Guido MD Primary Care Provider [phone] Encounters Date Type Department Care Team Description 12/06/2024 Telephone [facility] Medical [facility] Cardiology [address] [facility] [address] [place] [address] Freddie Velasco MD 11/21/2024 Telephone [facility] Cardiology [address] [place] [address] Freddie Velasco MD from Last [...] on file Legal 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 DRIVING Gender Identity Not on file Sexual Orientation Not on file Last Filed Vital Signs Vital Sign Reading Time Taken Comments Blood Pressure 180/78 09/10/2024 10:49 AM SUPERVISOR PILE DRIVING Pulse 92 09/10/2024 10:49 AM SUPERVISOR PILE DRIVING Temperature - - Respiratory Rate - - Oxygen Saturation 99% 09/10/2024 10:49 AM SUPERVISOR PILE DRIVING Inhaled Oxygen Concentration - - Weight 69 kg (152 lb 1.6 oz) 09/10/2024 10:49 AM SUPERVISOR PILE DRIVING Height 152.4 cm (5') 09/10/2024 10:49 AM SUPERVISOR PILE DRIVING Body Mass Index 29.7 09/10/2024 10:49 AM SUPERVISOR PILE DRIVING Plan of Treatment Not on file Insurance [id number] [place] [address] [employer] Care Teams Assistant Teaching Professor Relationship Specialty Start Date End Date Ulises Guido MD PCP - General Family Medicine 05/19/20
--- OUTSIDE RECORDS SUMMARY | 2025-01-27 12:09 | XMS_ITS | Clinical Summary ---
Author Organization [facility] Peter marie [facility] Address [address] [place] [address] Care Team Providers Care Litigation Docket Manager Name Role Phone Ulises Guido MD Primary Care Provider [phone] Allergies Active Allergy Reactions Criticality Noted Date [...] Visit [facility] Oncology and Hematology [facility] [address] [place] [address] Bassem Benitez MD Non-small cell lung cancer, unspecified laterality (CMS/HCC) (Primary Dx) 11/06/2024 Orders Only [facility] Oncology and [facility] [address] [place] [address] Bassem Benitez MD 11/02/2024 External Device Data [...] on file Legal 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 [address] [place] [address] Health Maintenance Due Date Last [...] Final Result from Last 3 Months Insurance [facility] Care Teams Litigation Docket Manager Relationship Specialty Start Date End Date Ulises Guido MD [address] [place] [address] PCP - General Family Practice 08/19/21
--- OUTSIDE RECORDS SUMMARY | 2025-01-27 12:38 | XMS_ITS | Referral Summary ---
Author Organization [facility] [place] [address] [place] [address] [address] [place] [address] Care Team Providers Care Assistant Professor Sculpture Name Role Phone Ulises Guido MD Primary Care Provider [phone] Encounters Date Type Department Care Team Description 12/06/2024 Telephone [facility] Medical [facility] Cardiology [address] [facility] [address] [place] [address] Freddie Velasco MD 11/21/2024 Telephone [facility] Cardiology [address] [place] [address] Freddie Velasco MD from Last [...] on file Legal Sex Female 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 Gender Identity Not on file Sexual Orientation Not on file Last Filed Vital Signs Vital Sign Reading Time Taken Comments Blood Pressure 180/78 09/10/2024 10:49 AM CERTIFIED RETINAL ANGIOGRAPHER Pulse 92 09/10/2024 10:49 AM CERTIFIED RETINAL ANGIOGRAPHER Temperature - - Respiratory Rate - - Oxygen Saturation 99% 09/10/2024 10:49 AM CERTIFIED RETINAL ANGIOGRAPHER Inhaled Oxygen Concentration - - Weight 69 kg (152 lb 1.6 oz) 09/10/2024 10:49 AM CERTIFIED RETINAL ANGIOGRAPHER Height 152.4 cm (5') 09/10/2024 10:49 AM CERTIFIED RETINAL ANGIOGRAPHER Body Mass Index 29.7 09/10/2024 10:49 AM CERTIFIED RETINAL ANGIOGRAPHER Plan of Treatment Not on file Insurance [id number] [place] [address] [employer] Care Teams Assistant Professor Sculpture Relationship Specialty Start Date End Date Ulises Guido MD PCP - General Family Medicine 05/19/20
--- OUTSIDE RECORDS SUMMARY | 2025-01-27 12:38 | XMS_ITS | Clinical Summary ---
Author Organization [facility] Peter marie [facility] Address [address] [place] [address] Care Team Providers Care Dice Maker Name Role Phone Ulises Guido MD Primary Care Provider [phone] Allergies Active Allergy Reactions Criticality Noted Date [...] Abstract 11/12/2024 11:30 AM CDT Office Visit [facility] Oncology and Hematology [facility] [address] [place] [address] Bassem Benitez MD Non-small cell lung cancer, unspecified laterality (CMS/HCC) (Primary Dx) 11/06/2024 Orders Only [facility] Oncology and [facility] [address] [place] [address] Bassem Benitez MD 11/02/2024 External Device Data [...] on file Legal Sex Female 11:17 AM DISC PAD GRINDER Gender Identity Not on file Sexual Orientation [...] Description 05/22/2025 11:00 AM CDT Office Visit [facility] Oncology and Hematology - [address] [facility] [address] [place] [address] Bassem Benitez MD [address] [facility] [address] [place] [address] Health Maintenance Due Date Last [...] Final Result from Last 3 Months Insurance [facility] Care Teams Dice Maker Relationship Specialty Start Date End Date Ulises Guido MD [address] [place] [address] PCP - General Family Practice 08/19/21
--- OUTSIDE RECORDS SUMMARY | 2025-01-27 12:38 | XMS_ITS | Clinical Summary ---
Author Organization [facility] [place] [address] Address [address] [place] [address] Care Team Providers Care Cigar Head Puncher Name Role Phone Ulises Guido MD Primary Care Provider [phone] Allergies Active Allergy Reactions Criticality Noted Date [...] Type Department Care Team Description 12/06/2024 Telephone [facility] Medical [facility] Cardiology [address] [facility] [address] [place] [address] Freddie Velasco MD 11/21/2024 Telephone [facility] Cardiology [address] [place] [address] Freddie Velasco MD from Last 3 Months [...] on file Legal Sex Female 3:40 AM OB NURSE Gender Identity Not on file Sexual Orientation Not on file Obstetrics History Last Filed Vital Signs Vital Sign Reading Time Taken Comments Blood Pressure 180/78 09/10/2024 10:49 AM OB NURSE Pulse 92 09/10/2024 10:49 AM OB NURSE Temperature - - Respiratory Rate - - Oxygen Saturation 99% 09/10/2024 10:49 AM OB NURSE Inhaled Oxygen Concentration - - Weight 69 kg (152 lb 1.6 oz) 09/10/2024 10:49 AM OB NURSE Height 152.4 cm (5') 09/10/2024 10:49 AM OB NURSE Body Mass Index 29.7 09/10/2024 10:49 AM OB NURSE Plan of Treatment Health Maintenance Due Date Last Done Comments Depression Screening 1938 Fall Risk Assessment 1938 Hepatitis B Screening 02/03/1956 Pneumococcal vaccine 65+ (1 of 1 - PCV) 02/03/1988 Zoster Vaccine (1 of 2) 02/03/1988 Well Visit 65+ 2003 DTaP/Tdap/Td Vaccine (1 - Tdap) 09/07/2016 7, 09/27/2005 Influenza Vaccine (Season Ended) 2025 06/11/2019, 06/23/2018, 06/10/2017, Additional history exists Insurance [facility] [employer] Care Teams Cigar Head Puncher Relationship Specialty Start Date End Date Ulises Guido MD PCP - General Family Medicine 05/19/20
--- NOTE | 2025-01-27 13:13 | ED_ITS ---
HPI - Extremity Injury (Lower) General Chief Complaint: Extremity Injury, Lower Stated Complaint: Right knee pain Time Seen by Provider: 01/27/25 12:28 History of Present Illness HPI Narrative: Patient is an 84-year-old female who presents ER with knee pain. Had a fall 1 week ago resulting in pain to the right knee and right thigh. She has been able to walk since then. She had negative imaging 01/25/2025. Fall was from standing. She has no new numbness or tingling. No new falls. She did not strike her head or lose consciousness. She reports her main issue is that she has difficulty sleeping at night due to her discomfort. Related Data Home Medications ?Medication ?Instructions ?Recorded ?Confirmed ?Last Taken ?Type melatonin 3 mg tablet 3 mg PO HS PRN Insomnia 10/31/21 12/18/24 12/05/23 History diclofenac sodium 1 % topical gel 1 ea topical DAILY 06/02/24 12/18/24 Unknown History lovastatin 20 mg tablet 20 mg PO DAILY 06/02/24 12/18/24 Unknown History amiodarone 200 mg tablet (Pacerone) 200 mg PO Q12H 10/25/24 12/18/24 Unknown History Allergies Allergy/AdvReac Type Severity Reaction Status Date / Time Penicillins Allergy Severe Hives Verified 01/25/25 12:28 gabapentin Allergy Intermediate Chest Pain Verified 01/25/25 12:28 nitrofurantoin (From Allergy Intermediate Hives Verified 01/25/25 12:28 Macrobid) Quinolones Allergy Mild Unknown Verified 01/25/25 12:28 cefprozil Allergy Unknown Unknown Verified 01/25/25 12:28 cefuroxime Allergy Unknown Unknown Verified 01/25/25 12:28 Cephalosporins Allergy Unknown Unknown Verified 01/25/25 12:28 gatifloxacin Allergy Unknown Unknown Verified 01/25/25 12:28 metronidazole Allergy Unknown Unknown Verified 01/25/25 12:28 fluoxetine (From Prozac) AdvReac Mild Dizziness Verified 01/25/25 12:28 erythromycin base AdvReac Unknown Stomach Verified 01/25/25 12:28 cramps loratadine (From Claritin) AdvReac Unknown Jittery Verified 01/25/25 12:28 Review of Systems Constitutional: Constitutional: Reports no additional constitutional complaints Musculoskeletal: Musculoskeletal: Reports no additional musculoskeletal complaints Integumentary/Breasts: Skin/Breast: Reports system reviewed and no additional complaints, except as docu Neurologic: Reports system reviewed and no additional complaints, except as documented [facility] Past Medical History Medical History Non-small cell carcinoma of lung Gastroesophageal reflux disease Nausea Aortic valve regurgitation Moderate by echocardiogram in October 2018. Followed by Dr. Velasco. Dementia Reported by daughter, however the patient disputes this. Bronchiectasis Prior imaging demonstrated bronchiectasis in bilateral lower lobes with chronic scarring. Hyperlipidemia Hypertension Benzodiazepine dependence Obstructive sleep apnea Paroxysmal atrial fibrillation She has declined anticoagulation and antiarrhythmics previously but is now on metoprolol daily. She is followed by Dr. Velasco. Chronic midline low back pain with sciatica Arthritis Depression Anxiety Diverticulitis Surgical History Surgical History History of tubal ligation History of hysterectomy History of cataract extraction History of tooth extraction History of cardiac catheterization No known intervention. History of cholecystectomy History of appendectomy Family History Family History Father Acute myocardial infarction Family history of alcoholism Gout Tobacco abuse Mother Family history of alcoholism Sibling Acute myocardial infarction Heart disease Sibling Brain aneurysm Daughter Bowel perforation July 2020 sounds like it may have been a bowel perforation r elated to hernia and possibly some diabetic problems.. Daughter Heart disease age 35 of heart attack Acute myocardial infarction Daughter COVID-19 Cyst of breast Social History Social History Social History: Surrogate medical decision maker: Toshia Bliss, daughter. Code status: Modified code, no intubation. Smoking status: Never smoker Second hand tobacco smoke exposure: Yes Alcohol intake: never Substance use: never Substance use type: does not use Do You Feel Safe in your Home?: Yes Lack of Transportation: No Lack of Food: Never True Current Housing: I Have Housing Concerned About Future Housing: No Difficulty Paying Gas/Electric Bills: No Difficulty Paying for Meds: No Currently Unemployed: No Education: High School Diploma/GED Difficulty w/ Childcare or Family Care: No Additional living arrangements comments: . Had 3 daughters, 1 who from an [place] at age 30 and other who passed from complications of diabetes. 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 Spiritual care concerns: No Agree to blood products: Yes Exam Narrative: GENERAL: Well-appearing, well-nourished, and in no acute distress. HEAD: Normocephalic, atraumatic. ENT: Mucous membranes moist. CHEST: Clear to auscultation. No respiratory distress. EXTREMITIES: Normal range of motion. Leg wraps going up to just above the knee. No reproducible joint line tenderness bilateral lower extremities. No thigh bruising. SKIN: Warm, dry, no rash. NEURO: Alert and oriented x3. PSYCH: Normal mood and affect. Course Course Emergency Course: Unremarkable evaluation. Discussed will not repeat imaging without new injury. Will give her tramadol that she can take at home. Vital Signs Vital signs: Vital Signs Temperature 98.9 F 01/27/25 12:04 Pulse Rate 80 01/27/25 12:04 Respiratory Rate 17 01/27/25 12:04 Blood Pressure 164/60 H 01/27/25 12:04 Pulse Oximetry 98 01/27/25 12:04 Oxygen Delivery Room Air 01/27/25 12:04 Temperature 98.9 F 01/27/25 12:04 Pulse Rate 80 01/27/25 12:04 Respiratory Rate 17 01/27/25 12:04 Blood Pressure 164/60 H 01/27/25 12:04 Pulse Oximetry 98 01/27/25 12:04 Oxygen Delivery Room Air 01/27/25 12:04 Discharge Plan Discharge Clinical Impression: Pain of right thigh Patient Disposition: Home Condition: Stable Additional Instructions: Return the ER if you have new fall/injury, have chest pain or you have additional concerns. Patient Language: Senegalese Prescriptions: New tramadol 50 mg tablet 50 mg PO Q8H PRN (Reason: pain) Qty: 12 0RF No Action amlodipine 2.5 mg tablet 2.5 mg PO DAILY Qty: 90 1RF benzonatate 100 mg capsule 100 mg PO TID PRN (Reason: cough) Qty: 30 0RF amiodarone [Pacerone] 200 mg tablet 200 mg PO Q12H lovastatin 20 mg tablet 20 mg PO DAILY diclofenac sodium 1 % gel 1 ea topical DAILY Rx Instructions: apply to bilateral legs polyethylene glycol 3350 [Miralax] 17 gram Powder In Packet 17 g PO QAM Qty: 30 0RF acetaminophen [Tylenol Extra Strength] 500 mg tablet 1,000 mg PO TID PRN (Reason: pain) Qty: 30 0RF melatonin 3 mg Tablet 3 mg PO HS PRN (Reason: Insomnia) aspirin [Adult Aspirin Regimen] 81 mg tablet,delayed release (DR/EC) 81 mg PO DAILY Qty: 90 0RF albuterol sulfate 90 mcg/actuation HFA aerosol inhaler 2 inh INHALATION Q4H PRN (Reason: shortness of breath or wheezing) Qty: 6.7 11RF omeprazole 20 mg capsule,delayed release(DR/EC) 20 mg PO BID Qty: 60 3RF furosemide 20 mg tablet 20 mg PO QAM Qty: 90 1RF levofloxacin 500 mg tablet 500 mg PO DAILY Qty: 7 0RF alprazolam 0.5 mg tablet 0.5 mg PO TID PRN (Reason: anxiety) 30 Days Qty: 75 1RF tramadol 50 mg tablet 50 mg PO Q6H PRN (Reason: pain) Qty: 60 0RF losartan 100 mg tablet 100 mg PO DAILY Qty: 90 1RF Rx Instructions: TAKE 1 TABLET BY MOUTH EVERY DAY IN THE MORNING Follow-up/Referrals: Ulises Guido MD [Primary Care Provider] - 1 Week
[2025-01-27 13:29] VITALS: BP 155/85; PULSE 74; RESP 16; TEMP 36.8; O2SAT 98
== END 2025-01-27 13:30 | disposition home or self-care (01) ==
PROVIDERS: Emergency Provider Emergency Medicine; PCP Family Medicine
DX: M79.651 Pain in right thigh (principal); K21.9 Gastro-esophageal reflux disease without esophagitis; I35.1 Nonrheumatic aortic (valve) insufficiency; F03.90 Unspecified dementia, unspecified severity, without behavioral disturbance, psychotic disturbance, mood disturbance, and anxiety; E78.5 Hyperlipidemia, unspecified; I10 Essential (primary) hypertension; G47.30 Sleep apnea, unspecified; I48.91 Unspecified atrial fibrillation; M19.90 Unspecified osteoarthritis, unspecified site; F32.A Depression, unspecified; F41.9 Anxiety disorder, unspecified
CPT/HCPCS: 99283

== ENCOUNTER 2025-02-04 12:27 | Outpatient (CLI) | payer MEDICARE, SELFPAY ==
--- NOTE | ~2025-02-04 | XR_ITS ---
AP and lateral views of the right tibia/fibula Clinical History: Pain Findings: No acute fracture or dislocation is seen. Osseous alignment is anatomic. Joint spaces are p reserved without significant erosive or degenerative change. Chondrocalcinosis of the menisci of any noted. Impression: No acute abnormality. Chondrocalcinosis of the menisci. Reviewed, dictated and finalized at location . Impression: No acute abnormality. Chondrocalcinosis of the menisci.
--- NOTE | ~2025-02-04 | US_ITS ---
EXAMINATION:US venous doppler LE RT INDICATION:Right leg pain TECHNIQUE: Multiple grayscale, color flow and Doppler images of the right lower extremity deep venous systems were obtained and reviewed. COMPARISON:No prior studies for comparison. FINDINGS: The common femoral, superficial femoral and popliteal veins demonstrate normal respiratory variation, augmentation and compressibility. Color flow is also seen within the posterior tibial, pe roneal, greater saphenous and profunda veins. IMPRESSION: 1: No lower extremity deep venous thrombosis. Reviewed, dictated and finalized at location B.
--- NOTE | ~2025-02-04 | XR_ITS ---
AP and lateral views of the right femur Clinical History: Pain Findings: No acute fracture or dislocation is seen. Osseous alignment is anatomic. There is mild dege nerative change of the right hip joint. Chondrocalcinosis noted of the menisci. Impression: Mild degenerative change of the right hip joint. Chondrocalcinosis of the menisci at the right knee. Reviewed, dictated and finalized at location . Impression: Mild degenerative change of the right hip joint. Chondrocalcinosis of the menisci at the right knee.
--- OUTSIDE RECORDS SUMMARY | 2025-02-04 13:20 | XMS_ITS | Referral Summary ---
Author Organization [facility] [address] [place] [address] [address] [place] [address] Care Team Providers Care Messenger Copy Name Role Phone Ulises Guido MD Primary Care Provider [phone] Encounters Date Type Department Care Team Description 12/06/2024 Telephone [facility] Medical [facility] Cardiology [address] [facility] [address] [place] [address] Freddie Velasco MD 11/21/2024 Telephone [facility] Cardiology [address] [place] [address] Freddie Velasco MD from Last [...] on file Legal Sex Female 3:40 AM 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 Gender Identity Not on file Sexual Orientation Not on file Last Filed Vital Signs Vital Sign Reading Time Taken Comments Blood Pressure 180/78 09/10/2024 10:49 AM 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 Pulse 92 09/10/2024 10:49 AM 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 Temperature - - Respiratory Rate - - Oxygen Saturation 99% 09/10/2024 10:49 AM 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 Inhaled Oxygen Concentration - - Weight 69 kg (152 lb 1.6 oz) 09/10/2024 10:49 AM 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 Height 152.4 cm (5') 09/10/2024 10:49 AM 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 Body Mass Index 29.7 09/10/2024 10:49 AM 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 Plan of Treatment Not on file Insurance [id number] [place] [address] [employer] Care Teams Messenger Copy Relationship Specialty Start Date End Date Ulises Guido MD PCP - General Family Medicine 05/19/20
--- OUTSIDE RECORDS SUMMARY | 2025-02-04 13:20 | XMS_ITS | Clinical Summary ---
Author Organization [facility] Peter marie [facility] Address [address] [place] [address] Care Team Providers Care Cement Breaker Name Role Phone Ulises Guido MD Primary Care Provider [phone] Allergies Active Allergy Reactions Criticality Noted Date [...] Encounters Date Type Department Care Team Description 01/28/2025 External Device Data ST[facility] ABSTRACTION Provider, Abstract 01/21/2025 External Device Data [facility] ABSTRACTION Provider, Abstract 01/15/2025 External Device Data [facility] ABSTRACTION Provider, Abstract 01/14/2025 External Device Data [facility] ABSTRACTION Provider, Abstract 11/13/2024 External Device Data ST[place] ABSTRACTION Provider, Abstract 11/12/2024 11:30 AM CDT Office Visit [facility] Oncology and Hematology [facility] [address] [place] [address] Bassem Benitez MD Non-small cell lung cancer, unspecified laterality (CMS/HCC) (Primary Dx) 11/06/2024 Orders Only [facility] Oncology and [facility] [address] [place] [address] Bassem Benitez MD from Last 3 Months Family History [...] on file Legal Sex Female 11:17 AM NURSERY SCHOOL 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 [phone] PCP - General Family Practice 08/19/21
--- OUTSIDE RECORDS SUMMARY | 2025-02-04 13:20 | XMS_ITS | Clinical Summary ---
Author Organization [facility] [place] [address] Address [address] [place] [address] Care Team Providers Care Clay Products Glazer Name Role Phone Ulises Guido MD Primary Care Provider [phone] Allergies Active Allergy Reactions Criticality Noted Date [...] 12/06/2024 Telephone [facility] Medical [facility] Cardiology [address] [facility] [address] [place] [address] Freddie Velasco MD 11/21/2024 Telephone [facility] Cardiology [address] [place] [address] Freddie Velasco MD from Last 3 Months [...] on file Legal Sex Female 3:40 AM CLERK ANALYST Gender Identity Not on file Sexual Orientation Not on file Obstetrics History Last Filed Vital Signs Vital Sign Reading Time Taken Comments Blood Pressure 180/78 09/10/2024 10:49 AM CLERK ANALYST Pulse 92 09/10/2024 10:49 AM CLERK ANALYST Temperature - - Respiratory Rate - - Oxygen Saturation 99% 09/10/2024 10:49 AM CLERK ANALYST Inhaled Oxygen Concentration - - Weight 69 kg (152 lb 1.6 oz) 09/10/2024 10:49 AM CLERK ANALYST Height 152.4 cm (5') 09/10/2024 10:49 AM CLERK ANALYST Body Mass Index 29.7 09/10/2024 10:49 AM CLERK ANALYST Plan of Treatment Health Maintenance Due Date Last Done Comments Depression Screening 1938 Fall Risk Assessment 1938 Hepatitis B Screening 02[birth year]03/1958 Pneumococcal vaccine 65+ (1 of 1 - PCV) 02/03/1988 Zoster Vaccine (1 of 2) 02/03/1988 Well Visit 65+ 2003 DTaP/Tdap/Td Vaccine (1 - Tdap) 09/07/2016 7, 09/27/2005 Influenza Vaccine (Season Ended) 2025 06/11/2019, 06/23/2018, 06/10/2017, Additional history exists Insurance [facility] [email or web address] Care Teams Clay Products Glazer Relationship Specialty Start Date End Date Ulises Guido MD PCP - General Family Medicine 05/19/20
== END 2025-02-04 12:28 | disposition home or self-care (01) ==
PROVIDERS: PCP Family Medicine; Visit Provider Nurse Practitioner Adult Health
DX: M16.11 Unilateral primary osteoarthritis, right hip (principal); M11.261 Other chondrocalcinosis, right knee; Z86.718 Personal history of other venous thrombosis and embolism
CPT/HCPCS: 73552; 73590; 93971

== ENCOUNTER 2025-03-08 11:16 | Outpatient (CLI) | payer MEDICARE, SELFPAY ==
--- NOTE | ~2025-03-08 | XR_ITS ---
AP and oblique views of the bilateral ribs and PA and lateral chest radiographs Clinical History: Pain COMPARISON: 01/25/2025 Findings: No rib fracture is seen. Osseous alignment is anatomic. There is hazy right upper lobe airs pace opacity. Cardiomediastinal contour is within normal limits. Soft tissues are unremarkable. Impression: No rib fracture is seen. Hazy, somewhat discoid right upper lobe airspace opacity, mildly improved from prior exam. This could relate improving pneumonia versus chronic atelectasis or scarring. Reviewed, dictated and finalized at location . Impression: No rib fracture is seen. Hazy, somewhat discoid right upper lobe airspace opacity, mildly improved from prior exam. This could relate improving pneumonia versus chronic atelectasis or scarring.
--- OUTSIDE RECORDS SUMMARY | 2025-03-08 11:20 | XMS_ITS | Continuity of Care Document ---
Author Organization [facility] Address [address] [place] [address] Phone Care Team Providers Care Family Reunification Specialist Name Role Phone Kalin Hammonds DO Unavailable Unavailable Advance Directives Directive Yes / No Effective Date File Name No Information Encounters Encounter Description Practice Location Reason(s) For Visit Diagnoses Date Provider Providers Copied on Encounter [facility], [address], [place], [place], [id number], [place] tel:[phone] [facility] No Information Cassius Johnson. [address] [facility], [place], [address], [place]. tel: [phone] Family History Family Member Type Diagnosis Age [...]
--- OUTSIDE RECORDS SUMMARY | 2025-03-08 11:20 | XMS_ITS | Clinical Summary ---
Author Organization [facility] [place] [address] Address [address] [place] [address] Care Team Providers Care Clinical Educator Name Role Phone Ulises Guido MD Primary Care Provider [phone] Allergies Active Allergy Reactions Criticality Noted Date [...] Encounters Date Type Department Care Team Description 02/11/2025 Orders Only [facility] Medical Group Cardiology [address] [facility] [address] [place] [address] Provider, MD Nano from Last 3 Months Family History Medical [...] on file Legal Sex Female 3:40 AM LAB CLERK Gender Identity Not on file Sexual Orientation Not on file Obstetrics History Last Filed Vital Signs Vital Sign Reading Time Taken Comments Blood Pressure 180/78 09/10/2024 10:49 AM LAB CLERK Pulse 92 09/10/2024 10:49 AM LAB CLERK Temperature - - Respiratory Rate - - Oxygen Saturation 99% 09/10/2024 10:49 AM LAB CLERK Inhaled Oxygen Concentration - - Weight 69 kg (152 lb 1.6 oz) 09/10/2024 10:49 AM LAB CLERK Height 152.4 cm (5') 09/10/2024 10:49 AM LAB CLERK Body Mass Index 29.7 09/10/2024 10:49 AM LAB CLERK Plan of Treatment Health Maintenance Due Date Last Done Comments Depression Screening 1938 Fall Risk Assessment 1940 Osteoporosis Screening-Bone Density Scan 1940 Hepatitis B Screening 02/03/1956 Pneumococcal vaccine 65+ (1 of 1 - PCV) 02/03/1988 Zoster Vaccine (1 of 2) 02/03/1988 Well Visit 65+ 2003 DTaP/Tdap/Td Vaccine (1 - Tdap) 09/07/2016 7, 09/27/2005 Influenza Vaccine (#1) 2025 9, 06/23/2018, 06/10/2017, Additional history exists Procedures Procedure Name Priority Date/Time Associated Diagnosis Comments ECG 12-LEAD Routine 01/25/2025 12:48 PM CDT from Last 3 Months Results * ECG 12 lead (01/25/2025 12:48 PM CDT) us Historical Provider ECG ORDERABLES Edited Re sult - Final from Last [address] [facility] [employer] [facility] [employer] Care Teams Clinical Educator Relationship Specialty Start Date End Date Ulises Guido MD PCP - General Family Medicine 05/19/20
--- OUTSIDE RECORDS SUMMARY | 2025-03-08 11:20 | XMS_ITS | Referral Summary ---
Author Organization [facility] [place] [address] [facility] [address] Address [address] [place] [address] Care Team Providers Care Cant Gang Sawyer Name Role Phone Ulises Guido MD Primary Care Provider [phone] Encounters Date Type Department Care Team Description 02/11/2025 Orders Only [facility] Medical Group Cardiology [address] [place] [address] ProviderNano MD from Last 3 Months Allergies Active [...] on file Legal Sex Female 3:40 AM GRIND OPERATOR Gender Identity Not on file Sexual Orientation Not on file Last Filed Vital Signs Vital Sign Reading Time Taken Comments Blood Pressure 180/78 09/10/2024 10:49 AM GRIND OPERATOR Pulse 92 09/10/2024 10:49 AM GRIND OPERATOR Temperature - - Respiratory Rate - - Oxygen Saturation 99% 09/10/2024 10:49 AM GRIND OPERATOR Inhaled Oxygen Concentration - - Weight 69 kg (152 lb 1.6 oz) 09/10/2024 10:49 AM GRIND OPERATOR Height 152.4 cm (5') 09/10/2024 10:49 AM GRIND OPERATOR Body Mass Index 29.7 09/10/2024 10:49 AM GRIND OPERATOR Plan of Treatment Not on file Procedures Procedure Name Priority Date/Time Associated Diagnosis Comments ECG 12-LEAD Routine 01/25/2025 12:48 PM CDT from Last 3 Months Results * ECG 12 lead (01/25/2025 12:48 PM CDT) us Historical Provider ECG ORDERABLES Edited Re sult - Final from Last 3 Months Insurance [facility] [employer] [facility] [employer] Care Teams Cant Gang Sawyer Relationship Specialty Start Date End Date Ulises Guido MD PCP - General Family Medicine 05/19/20
--- OUTSIDE RECORDS SUMMARY | 2025-03-08 11:20 | XMS_ITS | Clinical Summary ---
Author Organization [facility] Address [address] [place] [address] Care Team Providers Care Stove Mounter Name Role Phone Unavailable Primary Care Provider [...] Td Vaccines ( 1 - Tdap) 1957 Pneumococcal Vaccine: 50+ Ye ars (1 of 1 - PCV) 02/03/1988 Zoster Vaccines (1 of 2) 02/03/1988 Annual Medicare Wellness Visit 2003 RSV Immunization or 60+ Years (1 [...]
--- OUTSIDE RECORDS SUMMARY | 2025-03-08 11:20 | XMS_ITS | Clinical Summary ---
Author Organization [facility] marie [facility] Address [address] [place] [address] Care Team Providers Care Contact Lens Assistant Name Role Phone Ulises Guido MD Primary Care Provider [phone] Allergies Active Allergy Reactions Criticality Noted Date [...] on file Legal Sex Female 11:17 AM NEON SIGN ERECTOR Gender Identity Not on file Sexual Orientation [...] Description 05/22/2025 11:00 AM CDT Office Visit [facility] Oncology and Hematology - Tab [address] [facility] [address] [place] [address] Bassem Benitez MD [address] [facility] [address] [place] [address] Health Maintenance Due Date Last Done Comments DTAP/TDAP/TD VACCINES (1 - Tdap) 1959 PNEUMOCOCCAL VACCINE 50+ YEARS (1 of 1 - PCV) 02/02/19 88 ZOSTER VACCINE (1 of 2) 02/03/1988 OSTEOPOROSIS SCREENING 2003 RSV VACCINE (60+ or ) (1 - 1-dose 75+ series) 2013 INFLUENZA VACCINE (#1) 2025 Insurance [employer] Care Teams Contact Lens Assistant Relationship Specialty Start Date End Date Ulises Guido MD [address] [place] [address] PCP - General Family Practice 08/19/21
== END 2025-03-08 11:17 | disposition home or self-care (01) ==
PROVIDERS: PCP Family Medicine; Visit Provider Physician Assistant Medical
DX: R91.8 Other nonspecific abnormal finding of lung field (principal); R07.81 Pleurodynia
CPT/HCPCS: 71046; 71110

== ENCOUNTER 2025-05-05 10:18 | Outpatient (CLI) | payer MEDICARE, SELFPAY ==
--- OUTSIDE RECORDS SUMMARY | 2001-04-27 08:00 | XMS_ITS | Continuity of Care Document ---
Author Organization [facility] Address [address] [place] [address] Phone Care Team Providers Care Hi Teacher Name Role Phone Kalin Hammonds DO Unavailable Unavailable Advance Directives Directive Yes / No Effective Date File Name No Information Encounters Encounter Description Practice Location Reason(s) For Visit Diagnoses Date Provider Providers Copied on Encounter [facility], [address], [place], [place], [id number], [place] [phone] SEC [facility] No Information Cassius Johnson. [address] [facility], [place], [address], [place]. tel: [phone] Family History Family Member Type Diagnosis Age At Onset No Information Payers Payer name Insurance type Covered constitution party ID Authoriza tion(s) No Information Social History [...]
--- NOTE | ~2025-05-05 | CT_ITS ---
CT CHEST WITH CONTRAST CLINICAL HISTORY: Small cell lung cancer . COMPARISON: CT chest 11/05/2024 TECHNIQUE: Helical CT performed from thoracic inlet to upper abdomen Coronal, sagittal reformats IV contrast information not listed in PACS CT images acquired with automatic exposure control for dose reduction DLP: 254 mGy-cm FINDINGS: Lungs/Pleura: Unchanged bandlike atelectasis and scar right upper lobe. Unchanged bibasilar predominant interstitial changes. Small right and trace left pleural fluid. Thoracic Aorta: No dissection. No aneurysm. Mild atherosclerotic disease. Pulmonary arteries: Normal caliber. Heart: Coronary artery calcifications. Mildly enlarged. Tracheobronchial tree: Patent. Nodes: No enlarged nodes. Unchanged right epicardial fat pad noted Bones: No acute bony abnormality. Soft tissues: Unremarkable. Visualized upper abdomen: Incompletely seen pelviectasis right kidney. Liver slightly hyperdense. IMPRESSION: 1. Small right pleural effusion. Malignant effusion cannot be excluded. 2. Otherwise no acute abnormality or significant change from prior exam. 3. Right upper lobe posttreatment change/fibrosis not significantly changed. Reviewed, dictated and finalized at location R.
--- OUTSIDE RECORDS SUMMARY | 2025-05-05 10:43 | XMS_ITS | Clinical Summary ---
Author Organization [facility] Peter marie [facility] Address [address] [place] [address] Care Team Providers Care Director Diabetes Name Role Phone Ulises Guido MD Primary Care Provider [phone] Allergies Active Allergy Reactions Criticality Noted Date [...] Encounters Date Type Department Care Team Description 04/01/2025 External Device Data [facility] ABSTRACTION Provider, Abstract 03/12/2025 External Device Data [facility] [place]STRACTION Provider, Abstract 03/12/2025 External Device Data [facility] [place] Provider, Abstract [...] on file Legal Sex Female 11:17 AM 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 Oncology and Hematology - Tab [address] [facility] [address] [place] [address] Bassem Benitez MD [address] [facility] [address] [place] [address] Health Maintenance Due Date Last Done Comments DTAP/TDAP/TD VACCINES (1 - Tdap) 1957 PNEUMOCOCCAL VACCINE 50+ YEARS (1 of 1 - PCV) 02/02/19 88 ZOSTER VACCINE (1 of 2) 02/03/1988 OSTEOPOROSIS SCREENING 2003 RSV VACCINE (60+ or ) (1 - 1-dose 75+ series) 2013 INFLUENZA VACCINE (#1) 2025 Insurance [employer] M[employer] Care Teams Director Diabetes Relationship Specialty Start Date End Date Ulises Guido MD [address] [place] [address] PCP - General Family Practice 08/19/21
--- OUTSIDE RECORDS SUMMARY | 2025-05-05 10:43 | XMS_ITS | Clinical Summary ---
Author Organization [facility] [place] [address] Address [address] [place] [address] Care Team Providers Care Grocery Clerk Stocking Name Role Phone Ulises Guido MD Primary Care Provider [phone] Allergies Active Allergy Reactions Criticality Noted Date [...] mouth daily 30 tablet 11 4 Active lovastatin (MEVACOR) 20 mg tablet Take 1 tablet (20 mg total) by mouth daily 4 Active traMADoL (ULTRAM) 50 mg tablet Take by mouth every 6 (six) hours as needed Active ALPRAZolam (XANAX) 0.5 mg tablet Take 1 tablet (0.5 mg total) by mouth 3 (three) times a day as needed 4 Active apixaban (ELIQUIS) 2.5 mg tabletIndications :Paroxysmal atrial fibrillation (HCC) Take 1 tablet (2.5 mg total) by mouth 2 (two) times a day 180 tablet 3 4 Active amiodarone (PACERONE) 200 mg tabletIndications :Paroxysmal atrial fibrillation (HCC) Take 1 tablet (200 mg total) by mouth daily 90 tablet 3 5 Active Active Problems Problem Noted Date Diagnosed Date Paroxysmal atrial fibrillation 05/02/2019 Paroxysmal SVT (supraventricular tachycardia) Aortic valve regurgitation 04/12/2017 Encounters Date Type Department Care Team Description 03/18/2025 11:15 AM CDT Office Visit [facility] Medical [facility] Cardiology [address] [place] [phone] Freddie Velasco MD Paroxysmal SVT (supraventricular tachycardia) (Primary Dx); Paroxysmal atrial fibrillation (HCC); Nonrheumatic aortic valve insufficiency 03/10/2025 Results Follow-Up [facility] Medical Group [facility]ient [facility] at [address] [phone] Jacklyn Cox NP POCT urinalysis dipstick, Urine culture Urine, clean voided 03/08/2025 2:00 PM CDT Office Visit [facility] Group [facility] at [address] [phone] Hillary Contreras PA Acute cystitis with hematuria (Primary Dx); Elevated blood pressure reading 03/08/2025 1:56 PM CDT - 03/08/2025 11:59 PM CDT Hospital Encounter [address] [address] Discharge Disposition: Discharge to home or self care 02/11/2025 Orders Only [facility] Medical [facility] Cardiology [address] [place] [phone] Provider, Historical, MD from Last 3 Months Family History [...] on file 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 Gender Identity Not on file Sexual Orientation Not on file Obstetrics History Last Filed Vital Signs Vital Sign Reading Time Taken Comments Blood Pressure 170/74 03/18/2025 11:11 AM CDT Pulse 86 03/18/2025 11:11 AM CDT Temperature 36.7 C (98 F) 03/08/2025 1:52 PM CDT Respiratory Rate 20 03/08/2025 1:52 PM CDT Oxygen Saturation 98% 03/18/2025 11:11 AM CDT Inhaled Oxygen Concentration - - Weight 66.2 kg (146 lb) 03/18/2025 11:11 AM CDT Height 152.4 cm (5') 03/18/2025 11:11 AM CDT Body Mass Index 28.51 03/18/2025 11:11 AM CDT Plan of Treatment Health Maintenance Due Date [...] Procedure Name Priority Date/Time Associated Diagnosis Comments URINE CULTURE Routine 03/08/2025 2:06 PM CDT Acute cystitis with hematuria POCT URINALYSIS DIPSTICK Routine 03/08/2025 2:05 PM CDT Acute cystitis with hematuria from Last 3 Months Results * (ABNORMAL) Urine culture Urine, clean voided (03/08/2025 2:06 PM CDT) Report Final Report: Greater than or equal to 100,000 colonies/mL of Escherichia coli Plus growth of clinically insignificant bacterial todd. (.) Comment:Testing performed by : [facility], [address] [place]., [address] Organism ESCHERICHIA COLI [facility] Organism PLUS GROWTH OF CLINICALLY INSIGNIFICANT TODD. [facility] Urine, clean voided 03/08/2025 2:06 PM CDT 03/09/2025 12:45 AM CDT Narrative [facility] - 03/10/2025 4:25 PM CDT Testing performed by [facility] Microbiology Laboratory ([phone]) Organism Antibiotic Method Susceptibility Escherichia coli Ampicillin INTERPRETATION Resistant Escherichia coli Cefazolin INTERPRETATION Susceptible Escherichia coli Nitrofurantoin INTERPRETATION Susceptible Escherichia coli Gentamicin INTERPRETATION Resistant Escherichia coli Trimethoprim with Sulfamethoxazole IN TERPRETATION Resistant Escherichia coli Meropenem INTERPRETATION Susceptible Escherichia coli Cefepime INTERPRETATION Susceptible Escherichia coli Ciprofloxacin INTERPRETATION Susceptible Escherichia coli Ceftazidime INTERPRETATION Susceptible Escherichia coli Ceftriaxone INTERPRETATION Susceptible Escherichia coli Piperacillin/Tazobactam INTERPRETATIO N Susceptible Escherichia coli Cephalexin INTERPRETATION Susceptible Escherichia coli Cefuroxime-axetil INTERPRETATION Susceptible Escherichia coli Cefdinir INTERPRETATION Susceptible us [facility] MICROBIOLOGY - GENER AL ORDERABLES Final Result [facility] [address] Department [place] [address] * (ABNORMAL) POCT urinalysis dipstick (03/08/2025 2:05 PM CDT) Color, Urine, POC Yellow Clarity, ur, POC Clear Clear Glucose, ur, POC Negative Negative Bilirubin, ur, POC Negative Negative Ketones, ur, POC Negative Negative Specific [place], POC 1.020 1.003 - 1.030 Blood, ur, POC Trace(A) Negative pH, ur, POC 5.5 5.0 - 8.0 Protein, ur, POC Negative Negative Urobilinogen, urine, POC 0.2 0.2 - 1.0 mg/dL Nitrite, ur, POC Negative Negative Leukocytes, ur, POC Small(A) Negative Lot Number [id number] Urine 03/08/2025 2:05 PM CDT Hillary COOPER POINT OF CARE TEST ORDER DAVID Final Result from Last 3 Months Insurance [employer] Care Teams Grocery Clerk Stocking Relationship Specialty Start Date End Date Ulises Guido MD PCP - General Family Medicine 05/19/20
--- OUTSIDE RECORDS SUMMARY | 2025-05-05 10:43 | XMS_ITS | Encounter Summary ---
Author Organization [facility] Healthcare Address [address] [place] [address] Care Team Providers Care Escrow Representative Name Role Phone Ulises Guido MD Primary Care Provider [phone] Encounter Details Date Type Department Care Team (Late st Contact Info) Description 04/29/2024 Orders Only [facility] Health Information Management [address] [place] [address] Scanning, Provider Social History Tobacco Use Types Packs/Day Years Used Date Smoking Tobacco: Never Smokeless Tobacco: Never Alcohol Use Standard Drinks/Week Comments No 0 (1 standard drink = 0.6 oz pur e alcohol) Comments Unknown Sex and Gender Information Value Date Recorded Sex Assigned at Not on file 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 Gender Identity Not on file Sexual Orientation Not on file documented as of this encounter Plan of Treatment Not on file documented as of this encounter Procedures Procedure Name Priority Date/Time Associated Diagnosis Comments SCAN - RADIOLOGY/IMAGING 04/29/2024 SCAN - LABS 04/29/2024 documented in this encounter Results * SCAN - LABS (04/29/2024) us Provider Scanning Final Result * SCAN - RADIOLOGY/IMAGING (04/29/2024) Anatomical Region Laterality Modality Other us Provider Scanning Final Result documented in this encounter Visit Diagnoses Not on filedocumented in this encounter Care Teams Escrow Representative Relationship Specialty Start Date End Date Ulises Guido MD PCP - General Family Medicine 05/19/20 documented as of this encounter
--- OUTSIDE RECORDS SUMMARY | 2025-05-05 10:43 | XMS_ITS | Encounter Summary ---
Author Organization [facility] Healthcare Address [address] [place] [address] Care Team Providers Care Bleacher Operator Name Role Phone Ulises Guido MD Primary Care Provider [phone] Encounter Details Date Type Department Care Team (Late st Contact Info) Description 03/10/2025 Results Follow-Up [facility] Medical Group Convenient Care at [address] [address] Jacklyn Cox NP [address] [place] [address] [address] [place] [address] POCT urinalysis dipstick, Urine culture Urine, clean voided Social History Tobacco Use Types Packs/Day Years Used Date Smoking Tobacco: Never Smokeless Tobacco: Never Alcohol Use Standard Drinks/Week Comments No 0 (1 standard drink = 0.6 oz pur e alcohol) Comments Unknown Sex and Gender Information Value Date Recorded Sex Assigned at Not on file 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 Pt verbalized understanding. documented in this encounter Plan of Treatment Not on file documented as of this encounter Visit Diagnoses Not on filedocumented in this encounter Care Teams Bleacher Operator Relationship Specialty Start Date End Date Ulises Guido MD PCP - General Family Medicine 05/19/20 documented as of this encounter
--- OUTSIDE RECORDS SUMMARY | 2025-05-05 10:43 | XMS_ITS | Encounter Summary ---
Author Organization [facility] Healthcare Address [address] [place] [address] Care Team Providers Care Business Support Name Role Phone Ulises Guido MD Primary Care Provider [phone] Encounter Details Date Type Department Care Team (Late st Contact Info) Description 06/02/2024 Orders Only [facility] [place] Health Information Management [address] [place] [address] Scanning, Provider Social History Tobacco Use Types Packs/Day Years Used Date Smoking Tobacco: Never Smokeless Tobacco: Never Alcohol Use Standard Drinks/Week Comments No 0 (1 standard drink = 0.6 oz pur e alcohol) Comments Unknown Sex and Gender Information Value Date Recorded Sex Assigned at Not on file Legal Sex Female 3:40 AM [place] Gender Identity Not on file Sexual Orientation Not on file documented as of this encounter Plan of Treatment Not on file documented as of this encounter Procedures Procedure Name Priority Date/Time Associated Diagnosis Comments SCAN - RADIOLOGY/IMAGING 06/02/2024 documented in this encounter Results * SCAN - RADIOLOGY/IMAGING (06/02/2024) Anatomical Region Laterality Modality Other us Provider Scanning Final Result documented in this encounter Visit Diagnoses Not on filedocumented in this encounter Care Teams Business Support Relationship Specialty Start Date End Date Ulises Guido MD PCP - General Family Medicine 05/19/20 documented as of this encounter
[2025-05-05 10:57] LABS: Estimated Glomerular Filt Rate 39
== END 2025-05-05 10:19 | disposition home or self-care (01) ==
PROVIDERS: PCP Family Medicine; Visit Provider Internal Medicine Hematology & Oncology
DX: C34.90 Malignant neoplasm of unspecified part of unspecified bronchus or lung (principal); J90 Pleural effusion, not elsewhere classified; R91.1 Solitary pulmonary nodule
CPT/HCPCS: 71260; Q9967

== ENCOUNTER 2025-05-22 10:26 | Outpatient (CLI) | payer MEDICARE, SELFPAY ==
[2025-05-22 10:44] LABS: Hematocrit 37.6 % (37.0-47.0); Hemoglobin 11.3 g/dL (12.0-15.0); Immature Granulocyte Percent A 0.6 % (0-0.5); Lymphocytes Absolute Auto 1.06 K/mm3 (0.9-3.2); Mean Corpuscular HGB Conc 30.1 g/dl (32-36); Mean Corpuscular Hemoglobin 26.3 pg (26-34); Mean Corpuscular Volume 87.4 fl (80-100); Nucleated Red Blood Cells Absolute Auto 0.000 K/mm3 (0.0-0.012); Nucleated Red Blood Cells Perc 0.0 % (0.0-0.2); Platelet Count Result 205 k/mm3 (150-375); Red Blood Count 4.30 M/mm3 (4.2-5.4); White Blood Count 4.7 K/mm3 (4.5-10.0)
[2025-05-22 10:50] LABS: Blood Urea Nitrogen 14 mg/dL (8-26); Carbon Dioxide 27 mmol/L (22-30); Chloride 102 mmol/L (98-109); Estimated Glomerular Filt Rate 33; Glucose 141 mg/dL (70-105); Ionized Calcium (POC) 1.21 mmol/L (1.11-1.31); Potassium 3.4 mmol/L (3.5-4.9); Sodium 140 mmol/L (138-146)
[2025-05-22 11:23] LABS: Alanine Aminotransferase 39 U/L (6-35); Albumin Level 3.9 g/dL (3.5-5.1); Alkaline Phosphatase 79 U/L (38-126); Anion Gap 8 mmol/L (4-12); Aspartate Amino Transferase 60 U/L (14-36); Bilirubin,Total 0.8 mg/dL (0.2-1.3); Blood Urea Nitrogen 15 mg/dL (7-17); Calcium 9.2 mg/dL (8.4-10.2); Carbon Dioxide 27 mmol/L (22-30); Chloride 103 mmol/L (98-107); Estimated Glomerular Filt Rate 36; Glucose 140 mg/dL (65-110); Potassium 3.4 mmol/L (3.4-5.0); Sodium 138 mmol/L (137-145); Total Protein 7.0 g/dL (6.3-8.2)
== END 2025-05-22 10:27 | disposition home or self-care (01) ==
LOC: ANHLAB 10:27
PROVIDERS: PCP Family Medicine; Visit Provider Internal Medicine Hematology & Oncology
DX: C34.90 Malignant neoplasm of unspecified part of unspecified bronchus or lung (principal)
CPT/HCPCS: 36415; 80047; 80053; 85025

== ENCOUNTER 2025-06-24 10:10 | Outpatient (CLI) | payer MEDICARE, SELFPAY ==
--- OUTSIDE RECORDS SUMMARY | 2001-04-27 08:00 | XMS_ITS | Continuity of Care Document ---
Author Organization [facility] Address [address] [place] [address] Phone Care Team Providers Care Artificial Marble Worker Name Role Phone Kalin Hammonds DO Unavailable Unavailable Advance Directives Directive Yes / No Effective Date File Name No Information Encounters Encounter Description Practice Location Reason(s) For Visit Diagnoses Date Provider Providers Copied on Encounter [facility], [address], [place], [place], [id number], [place] [phone] [facility] No Information Cassius Johnson. [address] [facility], [place], [address], [place]. tel: [phone] Family History Family Member Type Diagnosis Age At Onset No Information Payers Payer name Insurance type Covered democrat ID Authoriza tion(s) No Information Social History [...]
--- NOTE | ~2025-06-24 | US_ITS ---
Examination: Ultrasound of the retroperitoneum including kidneys and bladder. Clinical History: N30.00 - Acute cystitis without hematuria . Comparison: CT abdomen pelvis 10/14/2022. Findings: Right kidney: 10 cm. Normal echogenicity. No collecting system dilatation. No shadowing calculi. Left kidney: 10 cm. Normal echogenicity. No collecting system dilatation. No shadowing calculi. Urinary bladder: No wall thickening or focal abnormality. Prevoid volume- 350 mL. Post void - 58 ml. Bilateral ureteral jets seen. IMPRESSION: 1. No acute abnormality. Reviewed, dictated and finalized at location R. IMPRESSION: 1. No acute abnormality. IMPRESSION: 1. No acute abnormality.
--- OUTSIDE RECORDS SUMMARY | 2025-06-24 11:31 | XMS_ITS | Clinical Summary ---
Author Organization [facility] Address [address] [place] [address] Care Team Providers Care Manager Perioperative Name Role Phone Unavailable Primary Care Provider [...] 75+ series) 2013 COVID-19 Vaccine ( - 2024-2 6 season) 2025 Influenza Adult (#1) 2025 Hepatitis A Vaccines Aged Out No long er eligible based on patient's age to complete this topic Meningococcal B Vaccine Aged Out No l onger eligible based on patient's age to complete this topic Meningococcal Vaccine Aged Out No judi von eligible based on patient's age to complete this topic RSV Immunizations Under 20 Months Aged Out No longer eligible based on patient's age to complete this topic Insurance [employer] MEDICARE
--- OUTSIDE RECORDS SUMMARY | 2025-06-24 11:31 | XMS_ITS | Encounter Summary ---
Author Organization [facility] Healthcare Address [address] [place] [address] Care Team Providers Care Synthetic Soil Blocks Pulper Name Role Phone Ulises Guido MD Primary Care Provider [phone] Encounter Details Date Type Department Care Team (Late st Contact Info) Description 06/02/2024 Orders Only [facility] [address] [place] [address] Scanning, Provider Social History Tobacco Use Types Packs/Day Years Used Date Smoking Tobacco: Never Smokeless Tobacco: Never Alcohol Use Standard Drinks/Week Comments No 0 (1 standard drink = 0.6 oz pur e alcohol) Comments Unknown Sex and Gender Information Value Date Recorded Sex Assigned at Not on file 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
--- OUTSIDE RECORDS SUMMARY | 2025-06-24 11:31 | XMS_ITS | Clinical Summary ---
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
--- OUTSIDE RECORDS SUMMARY | 2025-06-24 11:31 | XMS_ITS | Clinical Summary ---
Author Organization [facility] Peter marie [facility] Address [address] [place] [address] Care Team Providers Care Half Backer Name Role Phone Ulises Guido MD Primary Care Provider [phone] Allergies Active Allergy Reactions Criticality Noted Date [...] Take 81 mg by mouth daily. Active amiodarone (CORDARONE) 200 mg tablet Take 200 mg by mouth daily. Active Active Problems Problem Noted Date Diagnosed Date Non-small cell cancer of right lung 09/09/2021 Encounters Date Type Department Care Team Description 05/22/2025 11:00 AM CDT Office Visit [facility] Oncology and Hematology - [address] [place] [address] Bassem Benitez MD Non-small cell lung cancer, unspecified laterality (CMS/HCC) (Primary Dx) 05/22/2025 Orders Only [facility] Oncology and Hematology - Tab [address] [place] [address] Bassem Benitez MD 05/16/2025 Orders Only [facility] Oncology and Hematology - [address] [place] [address] Bassem Benitez MD 04/01/2025 External Device Data STL ABSTRACTION Provider, [...] on file Legal Sex Female 11:17 AM COMBAT CONTROL Gender Identity Not on file Sexual Orientation Not on file Last Filed Vital Signs Vital Sign Reading Time Taken Comments Blood Pressure 136/87 05/22/2025 10:43 AM CDT Pulse 77 05/22/2025 10:43 AM CDT Temperature 36.3 C (97.3 F) 05/22/2025 10:43 AM CDT Respiratory Rate 16 05/22/2025 10:43 AM CDT Oxygen Saturation 97% 05/22/2025 10:43 AM CDT Inhaled Oxygen Concentration - - Weight 64.5 kg (142 lb 3.2 oz) 05/22/2025 10:43 AM CDT Height 149.9 cm (4' 11) 04/19/2022 11:34 AM CDT Body Mass Index 28.72 04/19/2022 11:34 AM CDT Plan of Treatment Upcoming Encounters Date Type Department Care Team (Late st Contact Info) Description 11/20/2025 11:00 AM CDT Office Visit [facility] Oncology and Hematology - Tab [address] [facility] [address] [place] [address] Bassem Benitez MD [address] [facility] [address] [address] [place] [address] Health Maintenance Due Date Last Done Comments DTAP/TDAP/TD VACCINES (1 - Tdap) 1959 PNEUMOCOCCAL VACCINE 50+ YEARS (1 of 1 - PCV) 02/02/19 88 ZOSTER VACCINE (1 of 2) 02/03/1988 OSTEOPOROSIS SCREENING 2003 RSV VACCINE (60+ or ) (1 - 1-dose 75+ series) 2013 INFLUENZA VACCINE (#1) 2025 Procedures Procedure Name Priority Date/Time Associated Diagnosis Comments COMPREHENSIVE METABOLIC PANEL Routine 05/22/2025 3:37 PM CDT CBC WITH AUTODIFFERENTIAL Routine 2024 12:[address] CHEST W CONTRAST Routine 05/05/2025 1 1:34 AM CDT from Last 3 Months Results * COMPREHENSIVE METABOLIC PANEL (05/22/2025 3:37 PM CDT) Blood Bassem Benitez MD CHEMISTRY ORDERABLES Final Resu lt * CBC WITH AUTODIFFERENTIAL (05/22/2025 12:38 PM CDT) Blood Bassem Benitez MD HEMATOLOGY ORDERABLES Final Res ult * CT CHEST W CONTRAST (05/05/2025 11:34 AM CDT) Anatomical Region Laterality Modality Chest Computed Tomogra phy Bassem Benitez MD CT ORDERABLES Final Result from Last 3 Months Insurance [employer] O [facility] Care Teams Half Backer Relationship Specialty Start Date End Date Ulises Guido MD [address] [place] [address] PCP - General Family Practice 08/19/21
== END 2025-06-24 10:11 | disposition home or self-care (01) ==
PROVIDERS: PCP Family Medicine; Visit Provider Nurse Practitioner Adult Health
DX: N30.00 Acute cystitis without hematuria (principal)
CPT/HCPCS: 76770; 76857

== ENCOUNTER 2025-07-03 12:42 | Emergency (ER) | payer MEDICARE, SELFPAY ==
--- OUTSIDE RECORDS SUMMARY | 2001-04-27 07:00 | XMS_ITS | Continuity of Care Document ---
Author Organization [facility] Address [address] [place] [address] Phone Care Team Providers Care Kindergarten Tutor Name Role Phone Kalin Hammonds DO Unavailable Unavailable Advance Directives Directive Yes / No Effective Date File Name No Information Encounters Encounter Description Practice Location Reason(s) For Visit Diagnoses Date Provider Providers Copied on Encounter [facility], [address], [place], [place], [id number], [place] [phone] [facility] No Information Cassius Johnson. [address] [facility], [place], [address], [place]. tel: [phone] Family History Family Member Type Diagnosis Age At Onset No Information Payers Payer name Insurance type Covered republican ID Authoriza tion(s) No Information Social History Type Description Quantity Date Captured Comments Sex Female Smoking Status No Information Chief Complaint And Reason For Visit No Information Reason For Referral Reason For Referral No Information History Of Present Illness Encounter Date Complaint History Of Prese nt Illness No Information Functional Status Date Functional Assessmen t No Information Instructions Date Instruction Additional Infor mation No Information Assessments Type Assessment Date No Information Patient Care Teams Name Effective Dates (start - stop) Status Members No Information
--- OUTSIDE RECORDS SUMMARY | 2001-04-27 07:00 | XMS_ITS | Continuity of Care Document ---
Author Organization [facility] Address [address] [place] [address] Phone Care Team Providers Care Flag Signalman Name Role Phone Kalin Hammonds DO Unavailable Unavailable Advance Directives Directive Yes / No Effective Date File Name No Information Encounters Encounter Description Practice Location Reason(s) For Visit Diagnoses Date Provider Providers Copied on Encounter [facility], [address], [place], [place], [id number], [place] [phone] [facility] No Information Cassius Johnson. [address] [facility], [place], [address], [place]. tel: [phone] Family History Family Member Type Diagnosis Age At Onset No Information Payers Payer name Insurance type Covered libertarian ID Authoriza tion(s) No Information Social History [...]
--- NOTE | ~2025-07-03 | CT_ITS ---
CT diagnostic chest wo con HISTORY:eval pneumonia COMPARISON: 05/05/2025. TECHNIQUE: Axial images of the chest were obtained without infusion of intravenous contrast. Dose optimization technique was utilized. FINDINGS: The examination demonstrates bandlike atelectasis within the right upper lobe is unchanged. There is resolution of right pleural effusion. Mild subpleural reticulation are noted at the lung bases. No new area of focal consolidation seen. No pleural effusion or pneumothorax. Heart is enlarged. There are coronary artery calcifications. No hilar or mediastinal lymphadenopathy is seen. The thoracic aorta is normal in caliber. Osseous structures are intact. IMPRESSION: No acute cardiopulmonary process. Band like atelectasis within the right upper lobe is unchanged. There is resolution of previously seen pleural effusions. All CT scans at this facility are performed using low dose modulation techniques as appropriate to perform exam including the following: automated exposure control; use of iterative reconstruction technique; adjustment of the mA and/or kV according to patient size (this includes techniques or standardized protocols for targeted exams where dose is matched to indication/reason for exam). Reviewed, dictated and finalized at location S. IC ACID CONCENTRATOR OPERATOR IMPRESSION: No acute cardiopulmonary process. Band like atelectasis within the right upper lobe is unchanged. There is resolution of previously seen pleural effusions. All CT scans at this facility are performed using low dose modulation techniqu es as appropriate to perform exam including the following: automated exposure c ontrol; use of iterative reconstruction technique; adjustment of the mA and/or kV according to patient size (this includes techniques or standardized protocol s for targeted exams where dose is matched to indication/reason for exam).
--- NOTE | ~2025-07-03 | XR_ITS ---
EXAMINATION: XR chest 2V, 07/03/2025 15:50 DYNAMOMETER MECHANIC HISTORY: weakness/HX OF CHF/EXTREMITY SWELLING/SOB COMPARISON: No comparisons available. Technique: 2 views obtained. Findings: Mild pulmonary venous congestion. Bilateral infiltrates more focal in the right upper and right lower lobes. COPD changes are noted. No pneumothorax. Mild cardiomegaly. Mediastinal and hilar contours are within normal limits. Bony thorax no acute abnormality. Impression: CHF. Superimposed pneumonia is suspected Reviewed, dictated and finalized at location P. MOMETER MECHANIC Impression: CHF. Superimposed pneumonia is suspected
[2025-07-03 13:15] VITALS: BP 170/107; PULSE 73; RESP 18; TEMP 36.7; O2SAT 98
--- NOTE | 2025-07-03 15:01 | ED.GENADULT ---
HPI - General Adult General Chief complaint: Unspecified Stated complaint: shakiness Time Seen by Provider: 07/03/25 15:01 Focused HPI: This is a 85 year old female that presents to the ER for generalized weakness. Ongoing over the last couple of weeks. 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 Reports nausea, anorexia. Reports she feels shaky. Denies fever, vomiting, diarrhea, dysuria. GENERAL: Elderly, well-nourished, and in no acute distress. HEAD: Normocephalic, atraumatic. CHEST: Clear to auscultation. ?No respiratory distress. HEART: Regular rate and rhythm.? NEURO: ?Alert and oriented x3. Patient screened in triage and initial orders placed.? ?Additional care and disposition to be based upon?diagnostic testing and treatment. Related Data Home Medications ?Medication ?Instructions ?Recorded ?Confirmed ?Last Taken ?Type melatonin 3 mg tablet 3 mg PO HS PRN Insomnia 10/31/21 05/07/25 12/05/23 History amiodarone 200 mg tablet (Pacerone) 200 mg PO Q12H 10/25/24 05/07/25 Unknown History Allergies Allergy/AdvReac Type Severity Reaction Status Date / Time Penicillins Allergy Severe Hives Verified 05/07/25 10:53 gabapentin Allergy Intermediate Chest Pain Verified 05/07/25 10:53 nitrofurantoin (From Allergy Intermediate Hives Verified 05/07/25 10:53 Macrobid) Quinolones Allergy Mild Unknown Verified 05/07/25 10:53 cefprozil Allergy Unknown Unknown Verified 05/07/25 10:53 cefuroxime Allergy Unknown Unknown Verified 05/07/25 10:53 Cephalosporins Allergy Unknown Unknown Verified 05/07/25 10:53 gatifloxacin Allergy Unknown Unknown Verified 05/07/25 10:53 metronidazole Allergy Unknown Unknown Verified 05/07/25 10:53 fluoxetine (From Prozac) AdvReac Mild Dizziness Verified 05/07/25 10:53 erythromycin base AdvReac Unknown Stomach Verified 05/07/25 10:53 cramps loratadine (From Claritin) AdvReac Unknown Jittery Verified 05/07/25 10:53 PMFSH Past Medical History Medical History Chronic UTI Prolapse of bladder Chronic combined systolic and diastolic congestive heart failure Lower extremity edema Chest pain, pleuritic Urinary retention ROSEMARY (acute kidney injury) Nausea Benign hypertension Hypertension, uncontrolled Atrial fibrillation with controlled ventricular rate Atrial fibrillation with rapid ventricular response Atrial fibrillation with rapid ventricular response Chest pain Chest pain Elevated liver enzymes Calf pain Pain of right lower extremity due to injury Non-small cell carcinoma of lung Gastroesophageal reflux disease Nausea Aortic valve regurgitation Moderate by echocardiogram in October 2018. Followed by Dr. Velasco. Dementia Reported by daughter, however the patient disputes this. Bronchiectasis Prior imaging demonstrated bronchiectasis in bilateral lower lobes with chronic scarring. Hyperlipidemia Hypertension Benzodiazepine dependence Obstructive sleep apnea Paroxysmal atrial fibrillation She has declined anticoagulation and antiarrhythmics previously but is now on metoprolol daily. She is followed by Dr. Velasco. Chronic midline low back pain with sciatica Arthritis Depression Anxiety Diverticulitis Surgical History Surgical History History of tubal ligation History of hysterectomy History of cataract extraction History of tooth extraction History of cardiac catheterization No known intervention. History of cholecystectomy History of appendectomy Family History Family History Father Acute myocardial infarction Family history of alcoholism Gout Tobacco abuse Mother Family history of alcoholism Sibling Acute myocardial infarction Heart disease Sibling Brain aneurysm Daughter Bowel perforation July 2020 sounds like it may have been a bowel perforation related to hernia and possibly some diabetic problems.. Daughter Heart disease age 35 of heart attack Acute myocardial infarction Daughter COVID-19 Cyst of breast Social History Social History Social History: Surrogate medical decision maker: Toshia Bliss, daughter. Code status: Modified code, no intubation. Second hand tobacco smoke exposure: Yes Alcohol intake: never Substance use: never Substance use type: does not use Do You Feel Safe in your Home?: Yes Lack of Transportation: No Lack of Food: Never True Current Housing: I Have Housing Concerned About Future Housing: No Difficulty Paying Gas/Electric Bills: No Difficulty Paying for Meds: No Currently Unemployed: No Education: High School Diploma/GED Difficulty w/ Childcare or Family Care: No Additional living arrangements comments: . Had 3 daughters, 1 who from an DE at age 30 and other who passed from complications of diabetes. 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 Spiritual care concerns: No Agree to blood products: Yes Course Vital Signs Vital signs: Vital Signs Temperature 98.1 F 07/03/25 13:15 Pulse Rate 73 07/03/25 13:15 Respiratory Rate 18 07/03/25 13:15 Blood Pressure 170/107 H 07/03/25 13:15 Pulse Oximetry 98 07/03/25 13:15 Oxygen Delivery Room Air 07/03/25 13:15 Temperature 98.1 F 07/03/25 13:15 Pulse Rate 73 07/03/25 13:15 Respiratory Rate 18 07/03/25 13:15 Blood Pressure 170/107 H 07/03/25 13:15 Pulse Oximetry 98 07/03/25 13:15 Oxygen Delivery Room Air 07/03/25 13:15 Medical Decision Making Vital Signs Vital Signs: Vital Signs Temperature 98.1 F 07/03/25 13:15 Pulse Rate 73 07/03/25 13:15 Respiratory Rate 18 07/03/25 13:15 Blood Pressure 170/107 H 07/03/25 13:15 Pulse Oximetry 98 07/03/25 13:15 Oxygen Delivery Room Air 07/03/25 13:15 Temperature 98.1 F 07/03/25 13:15 Pulse Rate 73 07/03/25 13:15 Respiratory Rate 18 07/03/25 13:15 Blood Pressure 170/107 H 07/03/25 13:15 Pulse Oximetry 98 07/03/25 13:15 Oxygen Delivery Room Air 07/03/25 13:15 Discharge Plan Discharge Patient Language: Kyrgyz Prescriptions: No Action trimethoprim 100 mg tablet 100 mg PO .hs Qty: 90 1RF Rx Instructions: Hold during an active infection and do not combine with other antibiotics, ok to restart when finished with a short course of antibiotics. amiodarone [Pacerone] 200 mg tablet 200 mg PO Q12H tramadol 50 mg tablet 50 mg PO Q8H PRN (Reason: pain) Qty: 30 0RF acetaminophen [Tylenol Extra Strength] 500 mg tablet 1,000 mg PO TID PRN (Reason: pain) Qty: 30 0RF melatonin 3 mg Tablet 3 mg PO HS PRN (Reason: Insomnia) aspirin [Adult Aspirin Regimen] 81 mg tablet,delayed release (DR/EC) 81 mg PO DAILY Qty: 90 0RF albuterol sulfate 90 mcg/actuation HFA aerosol inhaler 2 inh INHALATION Q4H PRN (Reason: shortness of breath or wheezing) Qty: 6.7 11RF losartan 100 mg tablet 100 mg PO DAILY Qty: 90 1RF Rx Instructions: TAKE 1 TABLET BY MOUTH EVERY DAY IN THE MORNING lovastatin 20 mg tablet See Rx Instructions .ROUTE .COMPLEX Qty: 90 2RF Dose Instruction: TAKE 1 TABLET BY MOUTH EVERY DAY Rx Instructions: TAKE 1 TABLET BY MOUTH EVERY DAY furosemide 20 mg tablet 20 mg PO QAM Qty: 90 1RF lidocaine 5 % adhesive patch,medicated 2 patch topical DAILY Qty: 30 2RF Rx Instructions: leave on most painful area for up to 12 hrs omeprazole 20 mg capsule,delayed release(DR/EC) 20 mg PO DAILY Qty: 90 1RF fosfomycin tromethamine 3 gram packet 1 packet PO ONCE Qty: 1 1RF alprazolam 0.5 mg tablet 0.5 mg PO TID PRN (Reason: anxiety) 30 Days Qty: 75 1RF ondansetron HCl 4 mg tablet 4 mg PO Q8H PRN (Reason: nausea and vomiting) Qty: 20 0RF Follow-up/Referrals: Ulises Guido MD [Primary Care Provider, Family Practice]
--- NOTE | 2025-07-03 15:03 | ECG_ITS ---
Test Date: 2025-07-03 15:35:12 Measurements Intervals [place] Rate: 67 P: 69 AR: 221 QRS: -30 QRSD: 93 T: 1 QT: 420 QTc: 446 Interpretive Statements SINUS RHYTHM WITH FIRST DEGREE AV BLOCK BORDERLINE LEFT AXIS DEVIATION [QRS AXIS < -20] LEFT VENTRICULAR HYPERTROPHY AND ST-T CHANGE Electronically Signed On 07-03-2025 17:59:44 TECHNICAL AGRONOMIST by Tip Hartman D.O
[2025-07-03 15:43] LABS: Hematocrit 37.4 % (37.0-47.0); Hemoglobin 11.7 g/dL (12.0-15.0); Immature Granulocyte Percent A 0.4 % (0-0.5); Lymphocytes Absolute Auto 0.93 K/mm3 (0.9-3.2); Mean Corpuscular HGB Conc 31.3 g/dl (32-36); Mean Corpuscular Hemoglobin 27.2 pg (26-34); Mean Corpuscular Volume 87.0 fl (80-100); Nucleated Red Blood Cells Absolute Auto 0.000 K/mm3 (0.0-0.012); Nucleated Red Blood Cells Perc 0.0 % (0.0-0.2); Platelet Count Result 204 k/mm3 (150-375); Red Blood Count 4.30 M/mm3 (4.2-5.4); White Blood Count 7.7 K/mm3 (4.5-10.0)
[2025-07-03 15:47] LABS: Add Urine Microscopic? YES; Appearance Urine Clear (Clear); Glucose Urine UA Negative (Negative); Leukocyte Esterase Ur Trace LEU/UL (Negative); Nitrate Urine Negative (Negative); Non Pathogenic Casts 0-2; Specific Grav Ur 1.009 (1.001-1.035)
[2025-07-03 15:54] LABS: Alanine Aminotransferase 50 U/L (6-35); Albumin Level 4.1 g/dL (3.5-5.1); Alkaline Phosphatase 82 U/L (38-126); Anion Gap 8 mmol/L (4-12); Aspartate Amino Transferase 63 U/L (14-36); Bilirubin,Total 0.8 mg/dL (0.2-1.3); Blood Urea Nitrogen 14 mg/dL (7-17); Calcium 9.0 mg/dL (8.4-10.2); Carbon Dioxide 28 mmol/L (22-30); Chloride 101 mmol/L (98-107); Estimated Glomerular Filt Rate 36; Glucose 93 mg/dL (65-110); Potassium 3.6 mmol/L (3.4-5.0); Sodium 137 mmol/L (137-145); Total Protein 7.5 g/dL (6.3-8.2)
[2025-07-03 18:00] VITALS: BP 162/63; PULSE 68; RESP 16; O2SAT 99
[2025-07-03 18:30] VITALS: BP 173/62; PULSE 65; RESP 16; O2SAT 99
--- OUTSIDE RECORDS SUMMARY | 2025-07-03 19:36 | XMS_ITS | Clinical Summary ---
Author Organization [facility] Address [address] [place] [id number] Care Team Providers Care Paint Prep Technician Name Role Phone Unavailable Primary Care Provider [...]
--- OUTSIDE RECORDS SUMMARY | 2025-07-03 19:36 | XMS_ITS | Clinical Summary ---
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
--- OUTSIDE RECORDS SUMMARY | 2025-07-03 19:36 | XMS_ITS | Clinical Summary ---
Author Organization [facility] Peter marie [facility] Address [address] [place] [address] Care Team Providers Care Survival Specialist Name Role Phone Ulises Guido MD Primary Care Provider [phone] Allergies Active Allergy Reactions Criticality Noted Date [...] Description 05/22/2025 11:00 AM CDT Office Visit [facility] Oncology and Hematology - Tab [address] [place] [address] Bassem Benitez MD Non-small cell lung cancer, unspecified laterality (CMS/HCC) (Primary Dx) 05/22/2025 Orders Only [facility] Oncology and Hematology - Tab [address] [place] [address] Bassem Benitez MD 05/16/2025 Orders Only [facility] Oncology and Hematology - Tab [address] [place] [address] Bassem Benitez MD from Last 3 Months [...] on file 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 Gender Identity Not on file Sexual Orientation [...] Description 11/20/2025 11:00 AM CDT Office Visit [facility] Oncology and Hematology - Tab [address] [place] [address] [facility] [address] [place] [address] Bassem Benitez MD [address] [facility] [address] [place] [address] Health Maintenance Due Date Last [...] WITH AUTODIFFERENTIAL (05/22/2025 12:38 PM CDT) Blood us Bassem Benitez MD HEMATOLOGY ORDERABLES Final Res ult * CT CHEST W CONTRAST (05/05/2025 11:34 AM CDT) Anatomical Region Laterality Modality Chest Computed Tomogra phy us Bassem Benitez MD CT ORDERABLES Final Result from Last 3 Months Insurance [employer] PPO [facility] Care Teams Survival Specialist Relationship Specialty Start Date End Date Ulises Guido MD [address] [place] [id number] PCP - General Family Practice 08/19/21
--- NOTE | 2025-07-03 20:39 | ED_ITS ---
HPI - General Adult General Chief complaint: Unspecified Stated complaint: shakiness Time Seen by Provider: 07/03/25 15:01 History of Present Illness HPI narrative: 85-year-old female presenting with generalized weakness. Patient states she had a skin lesion removed about 2 weeks ago and has not felt good ever since. Patient endorses headache, chills, stomach pain. She reports ongoing genitourinary issues and is being monitored by pcp. She denies chest pain, shortness of breath, cough, fevers. Related Data Home Medications ?Medication ?Instructions ?Recorded ?Confirmed ?Last Taken ?Type melatonin 3 mg tablet 3 mg PO HS PRN Insomnia 03/02/1605/07/25 12/05/23 History amiodarone 200 mg tablet (Pacerone) 200 mg PO Q12H 05/07/25 Unknown History Allergies Allergy/AdvReac Type Severity Reaction Status Date / Time Penicillins Allergy Severe Hives Verified 05/07/25 10:53 gabapentin Allergy Intermediate Chest Pain Verified 05/07/25 10:53 nitrofurantoin (From Allergy Intermediate Hives Verified 05/07/25 10:53 Macrobid) Quinolones Allergy Mild Unknown Verified 05/07/25 10:53 cefprozil Allergy Unknown Unknown Verified 05/07/25 10:53 cefuroxime Allergy Unknown Unknown Verified 05/07/25 10:53 Cephalosporins Allergy Unknown Unknown Verified 05/07/25 10:53 gatifloxacin Allergy Unknown Unknown Verified 05/07/25 10:53 metronidazole Allergy Unknown Unknown Verified 05/07/25 10:53 fluoxetine (From Prozac) AdvReac Mild Dizziness Verified 05/07/25 10:53 erythromycin base AdvReac Unknown Stomach Verified 05/07/25 10:53 cramps loratadine (From Claritin) AdvReac Unknown Jittery Verified 05/07/25 10:53 Review of Systems 2 Review of Systems: All systems reviewed & are unremarkable except as noted in HPI and below PMFSH Past Medical History Medical History Chronic UTI Prolapse of bladder Chronic combined systolic and diastolic congestive heart failure Lower extremity edema Chest pain, pleuritic Urinary retention ROSEMARY (acute kidney injury) Nausea Benign hypertension Hypertension, uncontrolled Atrial fibrillation with controlled ventricular rate Atrial fibrillation with rapid ventricular response Atrial fibrillation with rapid ventricular response Chest pain Chest pain Elevated liver enzymes Calf pain Pain of right lower extremity due to injury Non-small cell carcinoma of lung Gastroesophageal reflux disease Nausea Aortic valve regurgitation Moderate by echocardiogram in October 2018. Followed by Dr. Velasco. Dementia Reported by daughter, however the patient disputes this. Bronchiectasis Prior imaging demonstrated bronchiectasis in bilateral lower lobes with chronic scarring. Hyperlipidemia Hypertension Benzodiazepine dependence Obstructive sleep apnea Paroxysmal atrial fibrillation She has declined anticoagulation and antiarrhythmics previously but is now on metoprolol daily. She is followed by Dr. Velasco. Chronic midline low back pain with sciatica Arthritis Depression Anxiety Diverticulitis Surgical History Surgical History History of tubal ligation History of hysterectomy History of cataract extraction History of tooth extraction History of cardiac catheterization No known intervention. History of cholecystectomy History of appendectomy Family History Family History Father Acute myocardial infarction Family history of alcoholism Gout Tobacco abuse Mother Family history of alcoholism Sibling Acute myocardial infarction Heart disease Sibling Brain aneurysm Daughter Bowel perforation July 2020 sounds like it may have been a bowel perforation related to hernia and possibly some diabetic problems.. Daughter Heart disease age 35 of heart attack Acute myocardial infarction Daughter COVID-19 Cyst of breast Social History Social History Social History: Surrogate medical decision maker: Toshia Bliss, daughter. Code status: Modified code, no intubation. Second hand tobacco smoke exposure: Yes Alcohol intake: never Substance use: never Substance use type: does not use Do You Feel Safe in your Home?: Yes Lack of Transportation: No Lack of Food: Never True Current Housing: I Have Housing Concerned About Future Housing: No Difficulty Paying Gas/Electric Bills: No Difficulty Paying for Meds: No Currently Unemployed: No Education: High School Diploma/GED Difficulty w/ Childcare or Family Care: No Additional living arrangements comments: . Had 3 daughters, 1 who from an [place] at age 30 and other who passed from complications of diabetes. 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 Spiritual care concerns: No Agree to blood products: Yes Exam 2 Narrative: GENERAL: Well-appearing, well-nourished, and in no acute distress. HEAD: Normocephalic, atraumatic. EYES: PERRLA and EOMI. ENT: Nares clear, no rhinorrhea or epistaxis. Mucous membranes moist. Oropharynx without tonsillar hypertrophy exudate or other lesions. Bilateral TMs pearly nichols non-bulging NECK: Supple. No adenopathy or masses. No carotid bruits or JVD CHEST: Clear to auscultation. No respiratory distress. No wheezes rales or rhonchi HEART: Regular rate and rhythm. No murmur heard. Normal peripheral pulses. ABDOMEN: Soft, nontender, nondistended, normal active bowel sounds. EXTREMITIES: Normal range of motion. No edema. SKIN: Warm, dry, no rash. NEURO: No focal deficits. Alert and oriented x3. PSYCH: Normal mood and affect Course Vital Signs Vital signs: Vital Signs Temperature 98.1 F 07/03/25 13:15 Pulse Rate 73 07/03/25 13:15 Respiratory Rate 18 07/03/25 13:15 Blood Pressure 170/107 H 07/03/25 13:15 Pulse Oximetry 98 07/03/25 13:15 Oxygen Delivery Room Air 07/03/25 13:15 Temperature 98.1 F 07/03/25 13:15 Pulse Rate 65 07/03/25 18:30 Respiratory Rate 16 07/03/25 18:30 Blood Pressure 173/62 H 07/03/25 18:30 Pulse Oximetry 99 07/03/25 18:30 Oxygen Delivery Room Air 07/03/25 13:15 Medical Decision Making [facility] Narrative Medical decision making narrative: 85-year-old female presenting with generalized weakness. Patient states she had a skin lesion removed about 2 weeks ago and has not felt good ever since. Patient endorses headache, chills, stomach pain. She reports ongoing genitourinary issues and is being monitored by pcp. She denies chest pain, shortness of breath, cough, fevers. Upon my initial assessment patient is sitting comfortably in bed. Exam within normal limits. Labs within normal limits for the patient. UA demonstrated trace leukocyte esterase as well as mild pyuria and bacteriuria. Patient reports this has been an ongoing issue. Chest x-ray demonstrated CHF with Superimposed pneumonia suspected so obtained further imaging. Chest CT then showed no acute cardiopulmonary process. COVID flu RSV negative. Vitals remained stable throughout the visit. All results discussed with patient. Patient comfortable with discharge home with outpatient treatment for UTI. Advised close follow-up with primary care provider. Medical Records Medical records reviewed: Yes I reviewed the external patient's medical records. Vital Signs Vital Signs: Vital Signs Temperature 98.1 F 07/03/25 13:15 Pulse Rate 73 07/03/25 13:15 Respiratory Rate 18 07/03/25 13:15 Blood Pressure 170/107 H 07/03/25 13:15 Pulse Oximetry 98 07/03/25 13:15 Oxygen Delivery Room Air 07/03/25 13:15 Temperature 98.1 F 07/03/25 13:15 Pulse Rate 65 07/03/25 18:30 Respiratory Rate 16 07/03/25 18:30 Blood Pressure 173/62 H 07/03/25 18:30 Pulse Oximetry 99 07/03/25 18:30 Oxygen Delivery Room Air 07/03/25 13:15 Lab Data Lab results reviewed: Yes I reviewed the patient's lab results. 07/03/25 15:32 07/03/25 15:32 Labs: Lab Results 07/03/25 07/03/25 Range/Units 15:32 21:11 WBC 7.7 (4.5-10.0) K/mm3 RBC 4.30 (4.2-5.4) M/mm3 Hgb 11.7 L (12.0-15.0) g/dL Hct 37.4 (37.0-47.0) % MCV 87.0 (80-100) fl MCH 27.2 (26-34) pg MCHC 31.3 L (32-36) g/dl RDW 17.5 H (11.5-14.5) % Plt Count 204 (150-375) k/mm3 MPV 11.1 H (7.4-10.4) fl Immature Gran % (Auto) 0.4 (0-0.5) % Neut % (Auto) 78.2 H (45.5-73.1) % Lymph % (Auto) 12.1 L (18.3-44.2) % [place] % (Auto) 8.5 (2.6-8.5) % Eos % (Auto) 0.3 (0-4.4) % Baso % (Auto) 0.5 (0.2-1.2) % Lymph # (Auto) 0.93 (0.9-3.2) K/mm3 [place] # (Auto) 0.7 H (0.1-0.6) K/mm3 Eos # (Auto) 0.0 (0-0.3) K/mm3 Baso # (Auto) 0.0 (0.0-0.1) K/mm3 Abs Immat Gran (auto) 0.03 (0.00-0.031) K/mm3 Absolute Neuts (auto) 6.0 (1.3-6.7) K/mm3 Absolute Nucleated RBC 0.000 (0.0-0.012) K/mm3 Nucleated RBC % 0.0 (0.0-0.2) % Sodium 137 (137-145) mmol/L Potassium 3.6 (3.4-5.0) mmol/L Chloride 101 (98-107) mmol/L Carbon Dioxide 28 (22-30) mmol/L Anion Gap 8 (4-12) mmol/L BUN 14 (7-17) mg/dL Creatinine 1.37 H (0.7-1.0) mg/dL Estim Creat Clear Calc Not Reportable Estimated GFR 36 L (59 - ) Glucose 93 (65-110) mg/dL Calcium 9.0 (8.4-10.2) mg/dL Total Bilirubin 0.8 (0.2-1.3) mg/dL AST 63 H (14-36) U/L ALT 50 H (6-35) U/L Alkaline Phosphatase 82 (38-126) U/L NT-Pro-B Natriuret Pep 480 H (19.9-100) pg/mL Total Protein 7.5 (6.3-8.2) g/dL Albumin 4.1 (3.5-5.1) g/dL Urine Color Yellow (Yellow) Urine Appearance Clear (Clear) Urine pH 6.0 (5.0-9.0) Ur Specific [place] 1.009 (1.001-1.035) Urine Protein Negative (Negative) mg/dL Urine Glucose (UA) Negative (Negative) mg/dL Urine Ketones Negative (Negative) mg/dL Ur Blood (Man) Negative (Negative) Urine Nitrate Negative (Negative) Urine Bilirubin Negative (Negative) Urine Urobilinogen 0.2 (<2.0) mg/dL Leukocyte Esterase Rfl Trace H (Negative) ELIANA/UL Urine RBC 0-2 (0-2) /hpf Urine WBC 6-10 H (0-3) /hpf Ur Squamous Epith Cells None seen (Few) /hpf Urine Bacteria 4+ H /hpf Urine Casts 0-2 Influenza A (RT-PCR) Negative (Negative) Influenza B (RT-PCR) Negative (Negative) RSV (RT-PCR) Negative (Negative) SARS-CoV-2 RNA (RT-PCR) Negative (Negative) Imaging Data Attestation: I personally reviewed and interpreted this imaging study as follows: Radiologist's impression: ITS Impressions Chest X-Ray 07/03/25 15:58 Impression: CHF. Superimposed pneumonia is suspected Chest CT 07/03/25 20:46 IMPRESSION: No acute cardiopulmonary process. Band like atelectasis within the right upper lobe is unchanged. There is resolution of previously seen pleural effusions. All CT scans at this facility are performed using low dose modulation techniques as appropriate to perform exam including the following: automated exposure control; use of iterative reconstruction technique; adjustment of the mA and/or kV according to patient size (this includes techniques or standardized protocols for targeted exams where dose is matched to indication/reason for exam). Discharge Plan Discharge Clinical Impression: UTI (urinary tract infection) Qualifiers: Urinary tract infection type: acute cystitis Hematuria presence: without hematuria Qualified Code(s): N30.00 - Acute cystitis without hematuria Patient Disposition: Home Condition: Stable Instructions: Antibiotic Form, Urinary Tract Infection in Women (ED) Additional Instructions: Return to the emergency department if you experience fever, chest pain, shortness of breath, abdominal pain with nausea and vomiting, weakness, numbness/tingling, or any other symptoms that are concerning to you. Follow up with primary care doctor Patient Language: Togolese Prescriptions: New fosfomycin tromethamine 3 gram packet 3 g PO ONCE Qty: 1 0RF No Action trimethoprim 100 mg tablet 100 mg PO .hs Qty: 90 1RF Rx Instructions: Hold during an active infection and do not combine with other antibiotics, ok to restart when finished with a short course of antibiotics. amiodarone [Pacerone] 200 mg tablet 200 mg PO Q12H tramadol 50 mg tablet 50 mg PO Q8H PRN (Reason: pain) Qty: 30 0RF acetaminophen [Tylenol Extra Strength] 500 mg tablet 1,000 mg PO TID PRN (Reason: pain) Qty: 30 0RF melatonin 3 mg Tablet 3 mg PO HS PRN (Reason: Insomnia) aspirin [Adult Aspirin Regimen] 81 mg tablet,delayed release (DR/EC) 81 mg PO DAILY Qty: 90 0RF albuterol sulfate 90 mcg/actuation HFA aerosol inhaler 2 inh INHALATION Q4H PRN (Reason: shortness of breath or wheezing) Qty: 6.7 11RF losartan 100 mg tablet 100 mg PO DAILY Qty: 90 1RF Rx Instructions: TAKE 1 TABLET BY MOUTH EVERY DAY IN THE MORNING lovastatin 20 mg tablet See Rx Instructions .ROUTE .COMPLEX Qty: 90 2RF Dose Instruction: TAKE 1 TABLET BY MOUTH EVERY DAY Rx Instructions: TAKE 1 TABLET BY MOUTH EVERY DAY furosemide 20 mg tablet 20 mg PO QAM Qty: 90 1RF lidocaine 5 % adhesive patch,medicated 2 patch topical DAILY Qty: 30 2RF Rx Instructions: leave on most painful area for up to 12 hrs omeprazole 20 mg capsule,delayed release(DR/EC) 20 mg PO DAILY Qty: 90 1RF fosfomycin tromethamine 3 gram packet 1 packet PO ONCE Qty: 1 1RF alprazolam 0.5 mg tablet 0.5 mg PO TID PRN (Reason: anxiety) 30 Days Qty: 75 1RF ondansetron HCl 4 mg tablet 4 mg PO Q8H PRN (Reason: nausea and vomiting) Qty: 20 0RF Follow-up/Referrals: Ulises Guido MD [Primary Care Provider, Family Practice]
--- OUTSIDE RECORDS SUMMARY | 2025-07-03 21:01 | XMS_ITS | Clinical Summary ---
Author Organization [facility] Address [address] [place] [id number] Care Team Providers Care Classics Teacher Name Role Phone Unavailable Primary Care Provider [...]
--- OUTSIDE RECORDS SUMMARY | 2025-07-03 21:01 | XMS_ITS | Clinical Summary ---
Author Organization [facility] Peter marie [facility] Address [address] [place] [address] Care Team Providers Care Transition Lead Name Role Phone Ulises Guido MD Primary Care Provider [phone] Allergies Active Allergy Reactions Criticality Noted Date [...] Description 05/22/2025 11:00 AM CDT Office Visit [facility] Oncology and Hematology - [address] [place] [address] Bassem Benitez MD Non-small cell lung cancer, unspecified laterality (CMS/HCC) (Primary Dx) 05/22/2025 Orders Only [facility] Oncology and Hematology - Tab [address] [place] [address] Bassem Benitez MD 05/16/2025 Orders Only [facility] Oncology and Hematology - [address] [place] [address] Bassem Benitez MD from Last 3 Months [...] on file 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 [id number] PCP - General Family Practice 08/19/21
--- OUTSIDE RECORDS SUMMARY | 2025-07-03 21:01 | XMS_ITS | Clinical Summary ---
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
[2025-07-03 21:27] LABS: NT Pro B Type Natriuretic Pept 480 pg/mL (19.9-100)
[2025-07-03 21:53] LABS: Influenza A QL RT-PCR Negative (Negative); Influenza B QL RT-PCR Negative (Negative); RSV RNA, RT-PCR Negative (Negative); SARS-CoV-2 RNA PCR Negative (Negative)
== END 2025-07-03 22:45 | disposition home or self-care (01) ==
PROVIDERS: Physician Assistant; PCP Family Medicine
DX: N30.00 Acute cystitis without hematuria (principal); Z20.822 Contact with and (suspected) exposure to COVID-19; I35.1 Nonrheumatic aortic (valve) insufficiency; I11.0 Hypertensive heart disease with heart failure; I50.42 Chronic combined systolic (congestive) and diastolic (congestive) heart failure; I48.0 Paroxysmal atrial fibrillation; E78.5 Hyperlipidemia, unspecified; G47.33 Obstructive sleep apnea (adult) (pediatric); K21.9 Gastro-esophageal reflux disease without esophagitis; M19.90 Unspecified osteoarthritis, unspecified site; F41.9 Anxiety disorder, unspecified; F32.A Depression, unspecified; Z85.118 Personal history of other malignant neoplasm of bronchus and lung; Z90.710 Acquired absence of both cervix and uterus; Z90.49 Acquired absence of other specified parts of digestive tract; Z98.49 Cataract extraction status, unspecified eye; Z79.01 Long term (current) use of anticoagulants; Z79.899 Other long term (current) drug therapy; Z79.82 Long term (current) use of aspirin; I44.0 Atrioventricular block, first degree; I51.7 Cardiomegaly; R94.31 Abnormal electrocardiogram [ECG] [EKG]
CPT/HCPCS: 36415; 71046; 71250; 80053; 81001; 83880; 85025; 87077; 87086; 87186; 87637; 93005; 99284

== ENCOUNTER 2025-08-04 13:19 | Outpatient (CLI) | payer MEDICARE, SELFPAY ==
--- NOTE | ~2025-08-04 | XR_ITS ---
EXAMINATION: XR ribs RT 2V w CXR 2V, 08/04/2025 13:45 CONVERTIBLE POWER SHOVEL OPERATOR HISTORY: W19.XXXA - Unspecified fall, initial encounter COMPARISON: No comparisons available. Findings: No acute fracture or malalignment. No significant degenerative changes. There are small infiltrates in the right upper and left lower lobes. Mild cardiomegaly. Mild pulmonary venous congestion. Impression: Mild CHF. Early pneumonia is suspected. No fracture is identified Reviewed, dictated and finalized at location P. ERTIBLE POWER SHOVEL OPERATOR Impression: Mild CHF. Early pneumonia is suspected. No fracture is identified
--- NOTE | ~2025-08-04 | XR_ITS ---
EXAMINATION: XR knee RT min 4V, 08/04/2025 13:45 ACCOUNT SERVICES REPRESENTATIVE HISTORY: FALL, RIGHT KNEE PAIN, INITIAL ENCOUNTER COMPARISON: No comparisons available. Findings: No acute fracture or malalignment. Moderate tricompartmental degenerative changes with chondrocalcinosis and small effusions Soft tissues unremarkable. Impression: No acute fracture or malalignment. Reviewed, dictated and finalized at location P. UNT SERVICES REPRESENTATIVE Impression: No acute fracture or malalignment.
== END 2025-08-04 13:20 | disposition home or self-care (01) ==
PROVIDERS: PCP Family Medicine; Visit Provider Nurse Practitioner Family
DX: M25.561 Pain in right knee (principal); W19.XXXA Unspecified fall, initial encounter; Y92.009 Unspecified place in unspecified non-institutional (private) residence as the place of occurrence of the external cause; I50.9 Heart failure, unspecified; R91.8 Other nonspecific abnormal finding of lung field; I87.8 Other specified disorders of veins; M17.11 Unilateral primary osteoarthritis, right knee; M11.261 Other chondrocalcinosis, right knee; M25.461 Effusion, right knee
CPT/HCPCS: 71046; 71100; 73564

== ENCOUNTER 2025-08-22 17:09 | Emergency (ER) | payer MEDICARE, SELFPAY ==
--- OUTSIDE RECORDS SUMMARY | 2025-08-22 17:11 | XMS_ITS | Clinical Summary ---
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
--- OUTSIDE RECORDS SUMMARY | 2025-08-22 17:11 | XMS_ITS | Clinical Summary ---
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 Gender Identity Not on file Sexual [...] Description 11/20/2025 11:00 AM CDT Office Visit [facility] Oncology and Hematology - Tab [address] [place] [address] Bassem Benitez MD [address] [facility] [facility] [address] [place] [address] Health Maintenance Due Date Last Done Comments DTAP/TDAP/TD VACCINES (1 - Tdap) 1959 PNEUMOCOCCAL VACCINE 50+ YEARS (1 of 1 - PCV) 02/02/19 88 ZOSTER VACCINE (1 of 2) 02/03/1988 OSTEOPOROSIS SCREENING 2003 RSV VACCINE (60+ or ) (1 - 1-dose 75+ series) 2013 INFLUENZA VACCINE (#1) 2025 Insurance [employer] PPO MCR Care Teams Tree Trimming Supervisor Relationship Specialty Start Date End Date Ulises Guido MD [address] [place] [address] PCP - General Family Practice 08/19/21
[2025-08-22 17:55] VITALS: BP 176/49; PULSE 62; RESP 16; TEMP 36.4; O2SAT 99
== END 2025-08-22 20:43 | disposition left against medical advice (07) ==
LOC: ANHED 20:21
PROVIDERS: PCP Family Medicine
DX: R05.9 Cough, unspecified (principal)
CPT/HCPCS: 99199

== ENCOUNTER 2025-08-24 11:03 | Emergency (ER) | payer MEDICARE, SELFPAY ==
[2025-08-24] VITALS (13 sets, daily range): BP systolic 170–219; BP diastolic 61–75; PULSE 72–82; RESP 15–29; TEMP 36.3–37.1; O2SAT 97–99
--- NOTE | ~2025-08-24 | XR_ITS ---
Examination: XR chest 2V Clinical History: SOA Comparison: X-ray 08/04/2025 CT chest 07/03/2025 Technique: PA and Lateral Findings: Cardiomegaly. Chronic airspace opacity right upper lobe. Most consistent with posttreatment change. Mild bibasilar fibrosis. No acute bony abnormality. Osteopenia. Exaggerated thoracic kyphosis. IMPRESSION: 1. No acute cardiopulmonary findings. Reviewed, dictated and finalized at location [facility]. [facility]
--- OUTSIDE RECORDS SUMMARY | 2025-08-24 11:05 | XMS_ITS | Clinical Summary ---
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
--- OUTSIDE RECORDS SUMMARY | 2025-08-24 11:05 | XMS_ITS | Clinical Summary ---
Author Organization [facility] Address [address] [place] [address] Care Team Providers Care Egg Processor Name Role Phone Unavailable Primary Care Provider [...]
--- OUTSIDE RECORDS SUMMARY | 2025-08-24 11:05 | XMS_ITS | Clinical Summary ---
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 Gender Identity Not on file Sexual [...] Description 11/20/2025 11:00 AM CDT Office Visit [facility] Oncology and Hematology - Tab [address] [facility] [address] [place] [address] Bassem Benitez MD [address] [facility] [address] [place] [address] Health Maintenance Due Date Last Done Comments DTAP/TDAP/TD VACCINES (1 - Tdap) 1957 PNEUMOCOCCAL VACCINE 50+ YEARS (1 of 1 - PCV) 02/02/19 88 ZOSTER VACCINE (1 of 2) 02/03/1988 OSTEOPOROSIS SCREENING 2003 RSV VACCINE (60+ or ) (1 - 1-dose 75+ series) 2013 INFLUENZA VACCINE (#1) 2025 Insurance [employer] PPO MCR Care Teams Hobbies And Crafts Sales Representative Relationship Specialty Start Date End Date Ulises Guido MD [address] [place] [address] PCP - General Family Practice 08/19/21
--- NOTE | 2025-08-24 11:40 | ECG_ITS ---
Test Date: 2025-08-24 12:25:54 Measurements Intervals [place] Rate: 71 P: -58 TX: 188 QRS: -28 QRSD: 89 T: 22 QT: 431 QTc: 471 Interpretive Statements SINUS RHYTHM BORDERLINE AV CONDUCTION DELAY DELAYED PRECORDIAL R/S TRANSITION LEFT VENTRICULAR HYPERTROPHY WITH ST-T CHANGE BASELINE ARTIFACT- II, III, AVR, AVL, AVF BORDERLINE ECG Compared to ECG 07/03/2025 15:35:12 NO SIGNIFICANT CHANGE Electronically Signed On 08-24-2025 20:18:25 [facility] by Seamus Cowan D.O.
[2025-08-24] MEDS: IPRATROPIUM 0.5 MG/ALBUTEROL SULFATE 2.5 MG (BASE) AMPUL.NEB 3 ML INHALATION (11:50)
[2025-08-24 12:01] LABS: Hematocrit 39.2 % (37.0-47.0); Hemoglobin 12.1 g/dL (12.0-15.0); Immature Granulocyte Percent A 0.5 % (0-0.5); Lymphocytes Absolute Auto 0.58 K/mm3 (0.9-3.2); Mean Corpuscular HGB Conc 30.9 g/dl (32-36); Mean Corpuscular Hemoglobin 27.4 pg (26-34); Mean Corpuscular Volume 88.9 fl (80-100); Nucleated Red Blood Cells Absolute Auto 0.000 K/mm3 (0.0-0.012); Nucleated Red Blood Cells Perc 0.0 % (0.0-0.2); Platelet Count Result 242 k/mm3 (150-375); Red Blood Count 4.41 M/mm3 (4.2-5.4); White Blood Count 10.5 K/mm3 (4.5-10.0)
--- OUTSIDE RECORDS SUMMARY | 2025-08-24 12:10 | XMS_ITS | Clinical Summary ---
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 Gender Identity Not on file Sexual Orientation [...] Description 11/20/2025 11:00 AM CDT Office Visit [facility] Oncology and Hematology - Tab [address] [facility] [address] [place] [address] Bassem Benitez MD [address] [facility] [address] [place] [address] Health Maintenance Due Date Last Done Comments DTAP/TDAP/TD VACCINES (1 - Tdap) 1957 PNEUMOCOCCAL VACCINE 50+ YEARS (1 of 1 - PCV) 02/02/19 88 ZOSTER VACCINE (1 of 2) 02/03/1988 OSTEOPOROSIS SCREENING 2003 RSV VACCINE (60+ or ) (1 - 1-dose 75+ series) 2013 INFLUENZA VACCINE (#1) 2025 Insurance [employer] PPO MCR Care Teams Push Connector Assembler Relationship Specialty Start Date End Date Ulises Guido MD [address] [place] [address] PCP - General Family Practice 08/19/21
--- OUTSIDE RECORDS SUMMARY | 2025-08-24 12:10 | XMS_ITS | Clinical Summary ---
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
--- OUTSIDE RECORDS SUMMARY | 2025-08-24 12:10 | XMS_ITS | Clinical Summary ---
Author Organization [facility] Address [address] [place] [address] Care Team Providers Care Structural Iron Worker Name Role Phone Unavailable Primary Care Provider [...]
[2025-08-24 12:25] LABS: Alanine Aminotransferase 54 U/L (6-35); Albumin Level 4.2 g/dL (3.5-5.1); Alkaline Phosphatase 98 U/L (38-126); Anion Gap 7 mmol/L (4-12); Aspartate Amino Transferase 76 U/L (14-36); Bilirubin,Total 1.2 mg/dL (0.2-1.3); Blood Urea Nitrogen 11 mg/dL (7-17); Calcium 9.7 mg/dL (8.4-10.2); Carbon Dioxide 26 mmol/L (22-30); Chloride 104 mmol/L (98-107); Estimated Glomerular Filt Rate 40; Glucose 168 mg/dL (65-110); INR 1.2; Potassium 3.9 mmol/L (3.4-5.0); Prothrombin Time 14.8 Seconds (11.1-14.7); Sodium 137 mmol/L (137-145); Total Protein 7.6 g/dL (6.3-8.2)
[2025-08-24 12:26] LABS: Partial Thromboplastin Time 25.5 Seconds (22.3-36.8)
[2025-08-24 12:34] LABS: NT Pro B Type Natriuretic Pept 279 pg/mL (19.9-100); Troponin I < 0.012 ng/mL (0.000-0.034)
[2025-08-24 12:36] LABS: Influenza A QL RT-PCR Negative (Negative); Influenza B QL RT-PCR Negative (Negative); RSV RNA, RT-PCR Negative (Negative); SARS-CoV-2 RNA PCR Negative (Negative)
[2025-08-24] MEDS: ACETAMINOPHEN 325 MG TABLET 650 MG PO (14:40)
--- NOTE | 2025-08-24 15:49 | ED.SOB ---
HPI - SOB/Dyspnea General Chief Complaint: Shortness of Breath/Dyspnea Stated Complaint: SOB, oxygen drop and dizzy when stands up Time Seen by Provider: 08/24/25 11:18 History of Present Illness HPI Narrative: Patient is a 85-year-old female who presents ER with shortness of breath. She has at home and reports that her pulse oximeter folder her O2 saturation was 86%. This prompted her to come in for further evaluation. No chest pain. Reports mild shortness of breath and then reports she is dizzy when she stands up. No extremity weakness or numbness. Patient has frequent visits the ER. Denies viral symptoms otherwise. Related Data Home Medications ?Medication ?Instructions ?Recorded ?Confirmed ?Last Taken ?Type melatonin 3 mg tablet 3 mg PO HS PRN Insomnia 10/31/21 08/13/25 12/05/23 History amiodarone 200 mg tablet (Pacerone) 200 mg PO Q12H 10/25/24 08/13/25 Unknown History Allergies Allergy/AdvReac Type Severity Reaction Status Date / Time Penicillins Allergy Severe Hives Verified 08/13/25 07:50 gabapentin Allergy Intermediate Chest Pain Verified 08/13/25 07:50 nitrofurantoin (From Allergy Intermediate Hives Verified 08/13/25 07:50 Macrobid) doxycycline Allergy Mild Rash Verified 08/13/25 07:50 Quinolones Allergy Mild Unknown Verified 08/13/25 07:50 cefprozil Allergy Unknown Unknown Verified 08/13/25 07:50 cefuroxime Allergy Unknown Unknown Verified 08/13/25 07:50 Cephalosporins Allergy Unknown Unknown Verified 08/13/25 07:50 gatifloxacin Allergy Unknown Unknown Verified 08/13/25 07:50 metronidazole Allergy Unknown Unknown Verified 08/13/25 07:50 fluoxetine (From Prozac) AdvReac Mild Dizziness Verified 08/13/25 07:50 loratadine (From Claritin) AdvReac Unknown Jittery Verified 08/13/25 07:50 Review of Systems Review of Systems: All systems reviewed & are unremarkable except as noted in HPI and below Constitutional: Constitutional: Reports no additional constitutional complaints ENT: Reports system reviewed and no additional complaints, except as documented Cardiovascular: Cardiovascular: Reports no additional cardiovascular complaints Respiratory: Respiratory: Reports no additional respiratory complaints Gastrointestinal: Gastrointestinal: Reports no additional gastrointestinal complaints Neurologic: Reports system reviewed and no additional complaints, except as documented PMFSH Past Medical History Medical History Pneumonia Right knee pain Fall at home Chronic UTI Prolapse of bladder Chronic combined systolic and diastolic congestive heart failure Lower extremity edema Chest pain, pleuritic Urinary retention ROSEMARY (acute kidney injury) Nausea Benign hypertension Hypertension, uncontrolled Atrial fibrillation with controlled ventricular rate Atrial fibrillation with rapid ventricular response Atrial fibrillation with rapid ventricular response Chest pain Chest pain Elevated liver enzymes Calf pain Pain of right lower extremity due to injury Non-small cell carcinoma of lung Gastroesophageal reflux disease Nausea Aortic valve regurgitation Moderate by echocardiogram in October 2018. Followed by Dr. Velasco. Dementia Reported by daughter, however the patient disputes this. Bronchiectasis Prior imaging demonstrated bronchiectasis in bilateral lower lobes with chronic scarring. Hyperlipidemia Hypertension Benzodiazepine dependence Obstructive sleep apnea Paroxysmal atrial fibrillation She has declined anticoagulation and antiarrhythmics previously but is now on metoprolol daily. She is followed by Dr. Velasco. Chronic midline low back pain with sciatica Arthritis Depression Anxiety Diverticulitis Surgical History Surgical History History of tubal ligation History of hysterectomy History of cataract extraction History of tooth extraction History of cardiac catheterization No known intervention. History of cholecystectomy History of appendectomy Family History Family History Father Acute myocardial infarction Family history of alcoholism Gout Tobacco abuse Mother Family history of alcoholism Sibling Acute myocardial infarction Heart disease Sibling Brain aneurysm Daughter Bowel perforation July 2020 sounds like it may have been a bowel perforation related to hernia and possibly some diabetic problems.. Daughter Heart disease age 35 of heart attack Acute myocardial infarction Daughter COVID-19 Cyst of breast Social History Social History Social History: Surrogate medical decision maker: Toshia Bliss, daughter. Code status: Modified code, no intubation. Smoking status: Never smoker Second hand tobacco smoke exposure: Yes Alcohol intake: never Substance use: never Substance use type: does not use Lack of Transportation: No Lack of Food: Never True Current Housing: I Have Housing Concerned About Future Housing: No Difficulty Paying Gas/Electric Bills: No Difficulty Paying for Meds: No Currently Unemployed: No Education: High School Diploma/GED Difficulty w/ Childcare or Family Care: No Additional living arrangements comments: . Had 3 daughters, 1 who from an AR at age 30 and other who passed from complications of diabetes. 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 Spiritual care concerns: No Agree to blood products: Yes Exam Narrative: GENERAL: Well-appearing, well-nourished, and in no acute distress. HEAD: Normocephalic, atraumatic. ENT: Mucous membranes moist. CHEST: Clear to auscultation. No respiratory distress. HEART: Regular rate and rhythm. Normal peripheral pulses. ABDOMEN: Soft, nontender, nondistended. EXTREMITIES: Normal range of motion. No edema. SKIN: Warm, dry, no rash. NEURO: Alert and oriented x3. PSYCH: Normal mood and affect. Course Course Emergency Course: Patient resting comfortably. She has been up and ambulatory without hypoxia. She has chronically elevated blood pressures on chart review. She does have medicine she can take at home. Her CBC was without significant changes. CMP with creatinine at baseline and no electrolyte disturbance. BNP 279 troponin negative. Bowel testing negative. Chest x-ray clear. Patient did develop a headache here and was treated with Tylenol successfully. Vital Signs Vital signs: Vital Signs Temperature 97.3 F L 08/24/25 11:09 Pulse Rate 74 08/24/25 11:09 Respiratory Rate 20 08/24/25 11:09 Blood Pressure 181/67 H 08/24/25 11:09 Pulse Oximetry 99 08/24/25 11:09 Oxygen Delivery Room Air 08/24/25 11:09 Temperature 98.7 F 08/24/25 16:07 Pulse Rate 82 08/24/25 16:07 Respiratory Rate 23 H 08/24/25 16:07 Blood Pressure 182/75 H 08/24/25 16:07 Pulse Oximetry 98 08/24/25 16:07 Oxygen Delivery Room Air 08/24/25 12:07 [facility] Differential Diagnosis Differential Diagnosis: Pneumonia, viral syndrome, cardiac etiology, heart failure exacerbation, ROSEMARY, dehydration Lab Data [facility] Lab Attestation statement: I personally reviewed the patient's lab results. 08/24/25 11:40 08/24/25 11:40 Labs: Lab Results 08/24/25 Range/Units 11:40 WBC 10.5 H (4.5-10.0) K/mm3 RBC 4.41 (4.2-5.4) M/mm3 Hgb 12.1 (12.0-15.0) g/dL Hct 39.2 (37.0-47.0) % MCV 88.9 (80-100) fl MCH 27.4 (26-34) pg MCHC 30.9 L (32-36) g/dl RDW 15.6 H (11.5-14.5) % Plt Count 242 (150-375) k/mm3 MPV 10.6 H (7.4-10.4) fl Immature Gran % (Auto) 0.5 (0-0.5) % Neut % (Auto) 87.5 H (45.5-73.1) % Lymph % (Auto) 5.5 L (18.3-44.2) % [place] % (Auto) 5.1 (2.6-8.5) % Eos % (Auto) 1.1 (0-4.4) % Baso % (Auto) 0.3 (0.2-1.2) % Lymph # (Auto) 0.58 L (0.9-3.2) K/mm3 [place] # (Auto) 0.5 (0.1-0.6) K/mm3 Eos # (Auto) 0.1 (0-0.3) K/mm3 Baso # (Auto) 0.0 (0.0-0.1) K/mm3 Abs Immat Gran (auto) 0.05 H (0.00-0.031) K/mm3 Absolute Neuts (auto) 9.2 H (1.3-6.7) K/mm3 Absolute Nucleated RBC 0.000 (0.0-0.012) K/mm3 Nucleated RBC % 0.0 (0.0-0.2) % PT 14.8 H (11.1-14.7) Seconds INR 1.2 APTT 25.5 (22.3-36.8) Seconds Sodium 137 (137-145) mmol/L Potassium 3.9 (3.4-5.0) mmol/L Chloride 104 (98-107) mmol/L Carbon Dioxide 26 (22-30) mmol/L Anion Gap 7 (4-12) mmol/L BUN 11 (7-17) mg/dL Creatinine 1.26 H (0.7-1.0) mg/dL Estim Creat Clear Calc Not Reportable Estimated GFR 40 L (59 - ) Glucose 168 H (65-110) mg/dL Calcium 9.7 (8.4-10.2) mg/dL Total Bilirubin 1.2 (0.2-1.3) mg/dL AST 76 H (14-36) U/L ALT 54 H (6-35) U/L Alkaline Phosphatase 98 (38-126) U/L Troponin I < 0.012 (0.000-0.034) ng/mL NT-Pro-B Natriuret Pep 279 H (19.9-100) pg/mL Total Protein 7.6 (6.3-8.2) g/dL Albumin 4.2 (3.5-5.1) g/dL Influenza A (RT-PCR) Negative (Negative) Influenza B (RT-PCR) Negative (Negative) RSV (RT-PCR) Negative (Negative) SARS-CoV-2 RNA (RT-PCR) Negative (Negative) Imaging Data Radiologist's impression: ITS Impressions Chest X-Ray 08/24/25 13:11 IMPRESSION: 1. No acute cardiopulmonary findings. ECG Data EKG #1: Attestation: I personally reviewed and interpreted this ECG as follows: ECG completion date: 08/24/25 ECG completion time: 12:25 normal rate (71), sinus rhythm, non-specific ST changes, normal QRS and normal QT Discharge Plan Discharge Clinical Impression: Dyspnea, Generalized headache Patient Disposition: Home Condition: Stable Instructions: Dyspnea (ED), General Headache (ED) Additional Instructions: Please return to the emergency department if you develop severe and persistent chest pain, difficulty breathing, dizziness, leg swelling or if you are coughing up blood as these can be signs of a medical emergency. Please call your doctor for a follow up appointment to determine the need for further testing. Patient Language: Setswana Prescriptions: No Action trimethoprim 100 mg tablet 100 mg PO .hs Qty: 90 1RF Rx Instructions: Hold during an active infection and do not combine with other antibiotics, ok to restart when finished with a short course of antibiotics. amiodarone [Pacerone] 200 mg tablet 200 mg PO Q12H tramadol 50 mg tablet 50 mg PO Q8H PRN (Reason: pain) Qty: 30 0RF acetaminophen [Tylenol Extra Strength] 500 mg tablet 1,000 mg PO TID PRN (Reason: pain) Qty: 30 0RF fosfomycin tromethamine 3 gram packet 3 g PO ONCE Qty: 1 0RF melatonin 3 mg Tablet 3 mg PO HS PRN (Reason: Insomnia) aspirin [Adult Aspirin Regimen] 81 mg tablet,delayed release (DR/EC) 81 mg PO DAILY Qty: 90 0RF albuterol sulfate 90 mcg/actuation HFA aerosol inhaler 2 inh INHALATION Q4H PRN (Reason: shortness of breath or wheezing) Qty: 6.7 11RF losartan 100 mg tablet 100 mg PO DAILY Qty: 90 1RF Rx Instructions: TAKE 1 TABLET BY MOUTH EVERY DAY IN THE MORNING lovastatin 20 mg tablet See Rx Instructions .ROUTE .COMPLEX Qty: 90 2RF Dose Instruction: TAKE 1 TABLET BY MOUTH EVERY DAY Rx Instructions: TAKE 1 TABLET BY MOUTH EVERY DAY furosemide 20 mg tablet 20 mg PO QAM Qty: 90 1RF lidocaine 5 % adhesive patch,medicated 2 patch topical DAILY Qty: 30 2RF Rx Instructions: leave on most painful area for up to 12 hrs omeprazole 20 mg capsule,delayed release(DR/EC) 20 mg PO DAILY Qty: 90 1RF fosfomycin tromethamine 3 gram packet 1 packet PO ONCE Qty: 1 1RF guaifenesin 1,200 mg tablet extended release 12hr 1,200 mg PO BID PRN (Reason: cough) Qty: 20 0RF sulfamethoxazole-trimethoprim [Bactrim DS] 800-160 mg tablet 1 tablet PO Q12H Qty: 10 0RF alprazolam 0.5 mg tablet 0.5 mg PO TID PRN (Reason: anxiety) 30 Days Qty: 75 1RF ondansetron HCl 4 mg tablet 4 mg PO Q8H PRN (Reason: nausea and vomiting) Qty: 20 1RF Follow-up/Referrals: Ulises Guido MD [Primary Care Provider, Family Practice] - 1 Week
== END 2025-08-24 16:15 | disposition home or self-care (01) ==
PROVIDERS: Emergency Provider Emergency Medicine; PCP Family Medicine
DX: R06.00 Dyspnea, unspecified (principal); R51.9 Headache, unspecified; I50.42 Chronic combined systolic (congestive) and diastolic (congestive) heart failure; I11.0 Hypertensive heart disease with heart failure; K21.9 Gastro-esophageal reflux disease without esophagitis; E78.5 Hyperlipidemia, unspecified; I48.0 Paroxysmal atrial fibrillation; Z85.118 Personal history of other malignant neoplasm of bronchus and lung; G47.33 Obstructive sleep apnea (adult) (pediatric); Z20.822 Contact with and (suspected) exposure to COVID-19
CPT/HCPCS: 36415; 71046; 80053; 83880; 84484; 85025; 85610; 85730; 87637; 93005; 94640; 99284; A9270

== ENCOUNTER 2025-08-26 15:32 | Emergency (ER) | payer MEDICARE, SELFPAY ==
--- NOTE | ~2025-08-26 | CT_ITS ---
EXAMINATION: CT brain wo con DATE: 08/26/2025 16:10 INDICATION: Fall. TECHNIQUE: Computed tomography (CT) of the head was performed without intravenous contrast. The mA was adjusted according to patient size. Iterative reconstruction technique was employed. The dose-length product was 605.33 mGy-cm. COMPARISON: Head CT 12/06/2023 FINDINGS: There are scattered areas of low attenuation in the cerebral white matter, which is within normal limits for the patient's age. There is no intracranial hemorrhage, acute infarction, or abnormal intracranial mass lesion. The ventricles are normal in size. There are likely changes of ocular lens replacement surgeries. There is mucosal thickening in the paranasal sinuses. The mastoid air cells are normal. IMPRESSION: 1. Normal aging brain. Reviewed, dictated and finalized at location E. ING FACILITIES MANAGER IMPRESSION: 1. Normal aging brain.
--- NOTE | ~2025-08-26 | CT_ITS ---
EXAMINATION: CT cervical spine wo con DATE: 08/26/2025 16:13 INDICATION: Fall. TECHNIQUE: Computed tomography (CT) of the cervical spine was performed without intravenous contrast. Automated exposure control and iterative reconstruction technique were employed. The dose-length product was 126.54 mGy-cm. COMPARISON: CT cervical spine 08/03/2019, chest CT 07/03/2025 FINDINGS: Again seen are groundglass opacities in right lung upper lobe, likely atelectasis. Bone alignment is normal. Vertebral body heights are normal. There is mildly decreased disc height at C4-C5 and severely decreased disc height at C5-C6. There is multilevel severe facet joint osteoarthritis. There is multilevel uncovertebral joint osteoarthritis, severe bilaterally at C5-C6 and on the right at C4-C5. There is mild neural frontal stenosis at multiple levels on either side. There is mild central canal stenosis at C3-C4, C4-C5, C5-C6, and C6-C7. IMPRESSION: 1. No fracture. 2. Severe cervical spondylosis. Reviewed, dictated and finalized at location E. T FITTER
--- OUTSIDE RECORDS SUMMARY | 2025-08-26 15:34 | XMS_ITS | Clinical Summary ---
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
--- OUTSIDE RECORDS SUMMARY | 2025-08-26 15:34 | XMS_ITS | Clinical Summary ---
Author Organization [facility] Address [address] [place] [address] Care Team Providers Care Emergency Medical Service Manager Name Role Phone Unavailable Primary Care [...]
--- OUTSIDE RECORDS SUMMARY | 2025-08-26 15:34 | XMS_ITS | Clinical Summary ---
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 Gender Identity Not on file Sexual Orientation [...] Healthcare Oncology and Hematology - Tab [address] [facility] [address] [place] [address] Bassem Benitez MD [address] [facility] [address] [place] [address] Health Maintenance Due Date Last Done Comments DTAP/TDAP/TD VACCINES (1 - Tdap) 1957 PNEUMOCOCCAL VACCINE 50+ YEARS (1 of 1 - PCV) 02/02/19 88 ZOSTER VACCINE (1 of 2) 02/03/1988 OSTEOPOROSIS SCREENING 2003 RSV VACCINE (60+ or ) (1 - 1-dose 75+ series) 2013 INFLUENZA VACCINE (#1) 2025 Insurance [employer] PPO MCR Care Teams Derrick Boat Lever Operator Relationship Specialty Start Date End Date Ulises Guido MD [address] [place] [address] PCP - General Family Practice 08/19/21
[2025-08-26 15:42] VITALS: BP 151/50; PULSE 69; RESP 19; TEMP 36.4; O2SAT 98
--- OUTSIDE RECORDS SUMMARY | 2025-08-26 16:47 | XMS_ITS | Clinical Summary ---
Author Organization [facility] Address [address] [place] [address] Care Team Providers Care Commercial Decorator Name Role Phone Unavailable Primary Care Provider [...]
--- OUTSIDE RECORDS SUMMARY | 2025-08-26 16:47 | XMS_ITS | Clinical Summary ---
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 Gender Identity Not on file Sexual [...] Description 11/20/2025 11:00 AM CDT Office Visit [facility] Oncology and Hematology - Tab [address] [facility] [address] [place] [address] Bassem Benitez MD [address] [facility] [address] [place] [address] Health Maintenance Due Date Last Done Comments DTAP/TDAP/TD VACCINES (1 - Tdap) 1959 PNEUMOCOCCAL VACCINE 50+ YEARS (1 of 1 - PCV) 02/02/19 88 ZOSTER VACCINE (1 of 2) 02/03/1988 OSTEOPOROSIS SCREENING 2003 RSV VACCINE (60+ or ) (1 - 1-dose 75+ series) 2013 INFLUENZA VACCINE (#1) 2025 Insurance [employer] PPO MCR Care Teams Abatement Worker Relationship Specialty Start Date End Date Ulises Guido MD [address] [place] [address] PCP - General Family Practice 08/19/21
--- OUTSIDE RECORDS SUMMARY | 2025-08-26 16:47 | XMS_ITS | Clinical Summary ---
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
--- NOTE | 2025-08-26 17:05 | ED.FALL ---
HPI - Fall General Chief Complaint: Fall Stated Complaint: fall hit head no blood thinner Time Seen by Provider: 08/26/25 16:31 Source: patient Mode of arrival: ambulatory Limitations: no limitations History of Present Illness HPI Narrative: Patient is an 85 y/o female who presents to the ED with c/o head injury. Patient reports having a fall around 10:00 a.m. this morning. States she was bending over from a chair trying to get her shoes when she slipped off the chair and fell. She hit her head on a wooden table. Denies LOC. Denies any other injuries. Patient takes ASA 81mg daily. Denies any other injuries. Denies dizziness, lightheadedness. Related Data Home Medications ?Medication ?Instructions ?Recorded ?Confirmed ?Last Taken ?Type melatonin 3 mg tablet 3 mg PO HS PRN Insomnia 10/31/21 08/26/25 12/05/23 History amiodarone 200 mg tablet (Pacerone) 200 mg PO Q12H 10/25/24 08/26/25 Unknown History Allergies Allergy/AdvReac Type Severity Reaction Status Date / Time Penicillins Allergy Severe Hives Verified 08/26/25 17:01 gabapentin Allergy Intermediate Chest Pain Verified 08/26/25 17:01 nitrofurantoin (From Allergy Intermediate Hives Verified 08/26/25 17:01 Macrobid) doxycycline Allergy Mild Rash Verified 08/26/25 17:01 Quinolones Allergy Mild Unknown Verified 08/26/25 17:01 cefprozil Allergy Unknown Unknown Verified 08/26/25 17:01 cefuroxime Allergy Unknown Unknown Verified 08/26/25 17:01 Cephalosporins Allergy Unknown Unknown Verified 08/26/25 17:01 gatifloxacin Allergy Unknown Unknown Verified 08/26/25 17:01 metronidazole Allergy Unknown Unknown Verified 08/26/25 17:01 fluoxetine (From Prozac) AdvReac Mild Dizziness Verified 08/26/25 17:01 loratadine (From Claritin) AdvReac Unknown Jittery Verified 08/26/25 17:01 Review of Systems Review of Systems: All systems reviewed & are unremarkable except as noted in HPI. All systems reviewed & are unremarkable except as noted in HPI and below PMFSH Past Medical History Medical History Pneumonia Right knee pain Fall at home Chronic UTI Prolapse of bladder Chronic combined systolic and diastolic congestive heart failure Lower extremity edema Chest pain, pleuritic Urinary retention ROSEMARY (acute kidney injury) Nausea Benign hypertension Hypertension, uncontrolled Atrial fibrillation with controlled ventricular rate Atrial fibrillation with rapid ventricular response Atrial fibrillation with rapid ventricular response Chest pain Chest pain Elevated liver enzymes Calf pain Pain of right lower extremity due to injury Non-small cell carcinoma of lung Gastroesophageal reflux disease Nausea Aortic valve regurgitation Moderate by echocardiogram in October 2018. Followed by Dr. Velasco. Dementia Reported by daughter, however the patient disputes this. Bronchiectasis Prior imaging demonstrated bronchiectasis in bilateral lower lobes with chronic scarring. Hyperlipidemia Hypertension Benzodiazepine dependence Obstructive sleep apnea Paroxysmal atrial fibrillation She has declined anticoagulation and antiarrhythmics previously but is now on metoprolol daily. She is followed by Dr. Velasco. Chronic midline low back pain with sciatica Arthritis Depression Anxiety Diverticulitis Surgical History Surgical History History of tubal ligation History of hysterectomy History of cataract extraction History of tooth extraction History of cardiac catheterization No known intervention. History of cholecystectomy History of appendectomy Family History Family History Father Acute myocardial infarction Family history of alcoholism Gout Tobacco abuse Mother Family history of alcoholism Sibling Acute myocardial infarction Heart disease Sibling Brain aneurysm Daughter Bowel perforation July 2020 sounds like it may have been a bowel perforation related to hernia and possibly some diabetic problems.. Daughter Heart disease age 35 of heart attack Acute myocardial infarction Daughter COVID-19 Cyst of breast Social History Social History Social History: Surrogate medical decision maker: Toshia Bliss, daughter. Code status: Modified code, no intubation. Smoking status: Never smoker Second hand tobacco smoke exposure: Yes Alcohol intake: never Substance use: never Substance use type: does not use Lack of Transportation: No Lack of Food: Never True Current Housing: I Have Housing Concerned About Future Housing: No Difficulty Paying Gas/Electric Bills: No Difficulty Paying for Meds: No Currently Unemployed: No Education: High School Diploma/GED Difficulty w/ Childcare or Family Care: No Additional living arrangements comments: . Had 3 daughters, 1 who from an [place] at age 30 and other who passed from complications of diabetes. 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 Spiritual care concerns: No Agree to blood products: Yes Exam Narrative: GENERAL: Well appearing, well-nourished, non-toxic, in no acute distress. HEAD: Normocephalic. Small abrasion to L frontal scalp, no focal tenderness. RESPIRATORY: Airway patent, respirations nonlabored. Clear to auscultation bilaterally, no rales, rhonchi, wheezing. CARDIOVASCULAR: Regular rate and rhythm. Peripheral pulses intact MUSCULOSKELETAL: Moves all extremities. No gross deformities. SKIN: Warm, dry, normal color. NEURO: A&O X3. Speech clear. Cranial nerves II-XII grossly intact. Steady gait. No ataxic movements. PSYCHIATRIC: Appropriate mood and affect. Normal interaction. Course Vital Signs Vital signs: Vital Signs Temperature 97.6 F 08/26/25 15:42 Pulse Rate 69 08/26/25 15:42 Respiratory Rate 19 08/26/25 15:42 Blood Pressure 151/50 H 08/26/25 15:42 Pulse Oximetry 98 08/26/25 15:42 Oxygen Delivery Room Air 08/26/25 15:42 Temperature 97.6 F 08/26/25 15:42 Pulse Rate 69 08/26/25 15:42 Respiratory Rate 19 08/26/25 15:42 Blood Pressure 151/50 H 08/26/25 15:42 Pulse Oximetry 98 08/26/25 15:42 Oxygen Delivery Room Air 08/26/25 15:42 [facility] MDM Narrative Medical decision making narrative: Patient presented to ED with head injury, mechanical fall. No LOC. Neurologically intact. At neurologic baseline upon my evaluation. No focal deficits. Vitals stable. Patient in no acute distress. Takes aspirin 81 mg daily. No other blood thinners. CT brain and cervical spine are without traumatic findings. Patient updated on imaging results. She denies any other areas of pain. States she is ready to go home. Discussed ice/Tylenol, recommended follow-up with PCP if needed. Given return precautions. Discharged in stable condition. Differential Diagnosis Differential Diagnosis: Intracranial bleeding, skull fracture, neck fracture, concussion Medical Records I have reviewed the following patient records and this information was taken into consideration when formulating the assessment and plan.: previous labs, previous ER visits, previous hospitalizations and previous clinic visits Imaging Data Attestation: I personally reviewed and interpreted this imaging study as follows: Radiologist's impression: ITS Impressions Head CT 08/26/25 16:13 IMPRESSION: 1. Normal aging brain. Cervical Spine CT 08/26/25 16:15 IMPRESSION: 1. No fracture. 2. Severe cervical spondylosis. Discharge Plan Discharge Clinical Impression: Fall from ground level Closed head injury Qualifiers: Encounter type: initial encounter Qualified Code(s): S09.90XA - Unspecified injury of head, initial encounter Patient Disposition: Home Condition: Stable Instructions: Antibiotic Form, Head Injury (ED) Additional Instructions: Your imaging did not show any traumatic findings. Recommend ice to area pain, Tylenol as needed for pain. Follow up with your primary care doctor for further evaluation if needed. Return for new or worsening concerns, recurrent fall or injury, severe dizziness, passing out, unable to keep down food or drink, or any other symptoms of concern. Patient Language: Icelandic Prescriptions: No Action trimethoprim 100 mg tablet 100 mg PO .hs Qty: 90 1RF Rx Instructions: Hold during an active infection and do not combine with other antibiotics, ok to restart when finished with a short course of antibiotics. amiodarone [Pacerone] 200 mg tablet 200 mg PO Q12H tramadol 50 mg tablet 50 mg PO Q8H PRN (Reason: pain) Qty: 30 0RF acetaminophen [Tylenol Extra Strength] 500 mg tablet 1,000 mg PO TID PRN (Reason: pain) Qty: 30 0RF fosfomycin tromethamine 3 gram packet 3 g PO ONCE Qty: 1 0RF melatonin 3 mg Tablet 3 mg PO HS PRN (Reason: Insomnia) aspirin [Adult Aspirin Regimen] 81 mg tablet,delayed release (DR/EC) 81 mg PO DAILY Qty: 90 0RF albuterol sulfate 90 mcg/actuation HFA aerosol inhaler 2 inh INHALATION Q4H PRN (Reason: shortness of breath or wheezing) Qty: 6.7 11RF lovastatin 20 mg tablet See Rx Instructions .ROUTE .COMPLEX Qty: 90 2RF Dose Instruction: TAKE 1 TABLET BY MOUTH EVERY DAY Rx Instructions: TAKE 1 TABLET BY MOUTH EVERY DAY furosemide 20 mg tablet 20 mg PO QAM Qty: 90 1RF lidocaine 5 % adhesive patch,medicated 2 patch topical DAILY Qty: 30 2RF Rx Instructions: leave on most painful area for up to 12 hrs omeprazole 20 mg capsule,delayed release(DR/EC) 20 mg PO DAILY Qty: 90 1RF fosfomycin tromethamine 3 gram packet 1 packet PO ONCE Qty: 1 1RF guaifenesin 1,200 mg tablet extended release 12hr 1,200 mg PO BID PRN (Reason: cough) Qty: 20 0RF alprazolam 0.5 mg tablet 0.5 mg PO TID PRN (Reason: anxiety) 30 Days Qty: 75 1RF ondansetron HCl 4 mg tablet 4 mg PO Q8H PRN (Reason: nausea and vomiting) Qty: 20 1RF sulfamethoxazole-trimethoprim [Bactrim DS] 800-160 mg tablet 1 tablet PO Q12H Qty: 10 0RF losartan 100 mg tablet See Rx Instructions .ROUTE .COMPLEX Qty: 90 1RF Dose Instruction: TAKE 1 TABLET BY MOUTH EVERY DAY IN THE MORNING Rx Instructions: TAKE 1 TABLET BY MOUTH EVERY DAY IN THE MORNING Follow-up/Referrals: Ulises Guido MD [Primary Care Provider, Family Practice] Time of Disposition: 17:08
[2025-08-26 17:17] VITALS: BP 152/63; PULSE 63; RESP 18; TEMP 36.4; O2SAT 99
== END 2025-08-26 17:15 | disposition home or self-care (01) ==
PROVIDERS: Emergency Provider Physician Assistant; PCP Family Medicine
DX: S09.90XA Unspecified injury of head, initial encounter (principal); I50.42 Chronic combined systolic (congestive) and diastolic (congestive) heart failure; I11.0 Hypertensive heart disease with heart failure; I48.91 Unspecified atrial fibrillation; I48.0 Paroxysmal atrial fibrillation; K21.9 Gastro-esophageal reflux disease without esophagitis; F32.A Depression, unspecified; F41.9 Anxiety disorder, unspecified; Z87.01 Personal history of pneumonia (recurrent); Z85.118 Personal history of other malignant neoplasm of bronchus and lung; Z90.710 Acquired absence of both cervix and uterus; Z90.49 Acquired absence of other specified parts of digestive tract; Z98.49 Cataract extraction status, unspecified eye; Z77.22 Contact with and (suspected) exposure to environmental tobacco smoke (acute) (chronic); M47.812 Spondylosis without myelopathy or radiculopathy, cervical region; Z79.82 Long term (current) use of aspirin; Z79.899 Other long term (current) drug therapy; W07.XXXA Fall from chair, initial encounter
CPT/HCPCS: 70450; 72125; 99284